=== PATIENT | female | born 1950 | race Caucasian/White ===

== ENCOUNTER 2019-08-19 18:58 | Inpatient (IN) | payer MEDICARE, MEDICAID, SELFPAY ==
[2019-08-19] VITALS (53 sets, daily range): BP systolic 120–185; BP diastolic 44–80; PULSE 65–114; RESP 8–24; TEMP 36.4–36.5; O2SAT 79–100; BMI 36.7
--- NOTE | 2019-08-19 19:00 | ED_ITS ---
Entered by Noelle Hogan, acting as scribe for HPI - Chest Pain General: Chief Complaint: Chest Pain Stated Complaint: CHEST PAIN Time Seen by Provider: 08/19/19 18:59 Source: patient and EMS Mode of arrival: EMS Limitations: no limitations History of Present Illness: HPI narrative: 68 yo Female presents to ED with complaint of chest pain. Per EMS, patient states that pushing on her chest and movement makes her pain worse. Pt states nothing makes it better. Per EMS, patient went to the salon to get her hair and nails done and was using a different walker than normal. Pt's normal walker has wheels and the one she used today didn't have wheels. Pt states that it hurts worse when her chest is pressed on. MD complaint: chest pain Onset (ago): hour(s) Timing of current episode: constant and still present Onset: during rest Pain location: left chest and right chest Pain radiation: none Severity: moderate Quality: aching Relieving factors: nothing Exacerbating factors: palpation and movement Associated symptoms: Reports nausea; Deny diaphoresis, dyspnea, fever(s), palpitations or syncope Treatment prior to arrival: oxygen Review of Systems General: Reports: other (negative unless marked) Const: Denies: fever, chills, body aches, fatigue, malaise or diaphoresis Eyes: Denies: change in vision or blurry vision ENMT: Denies: throat pain, painful swallowing, hoarseness, ear pain, ear discharge, Change in hearing or nasal discharge Card: Reports: chest pain; Denies: palpitations, irregular heart rhythm, syncope, pre-syncope, shortness of breath on exertion or shortness of breath when lying down Resp: Denies: shortness of breath, productive cough, non-productive cough, wheezing, coughing up blood or chest congestion GI: Reports: nausea : Denies: flank pain, painful urination, urinary frequency, urinary urgency, decreased urine ouput, urinary incontinence or blood in urine Musc: Reports: other (chest wall pain); Denies: neck pain, back pain, extremity pain, extremity swelling, joint pain, joint swelling, joint warmth or joint stiffness Skin/Breast: Denies: rash, skin tenderness or yellow skin Neuro: Denies: headache, numbness in extremities, weakness in extremities, changes in sensation, lack of coordination, difficulty walking, dizziness, vertigo or confusion Endo: Denies: excessive thirst, tired all the time, cold intolerance, excessive sweating, flushing or hot flashes Francois/Lymph: Denies: easy bruising, easy bleeding, petechiae or enlarged lymph nodes All/Imm: Denies: hives, throat swelling, tongue swelling, facial swelling or acute wheezing PFSH ED PFSH: Medical History (Updated 08/19/19 @ 22:04 by Ruchi Malloy MD) Adverse drug reaction Angina pectoris CAD (coronary artery disease) Cellulitis CHF (congestive heart failure) Dental caries Diabetes DJD (degenerative joint disease) Fibula fracture Gastroenteritis GERD (gastroesophageal reflux disease) HTN (hypertension) Hypercholesterolemia Hyperlipidemia Radius fracture Renal failure Rhabdomyolysis Tibia fracture UTI (urinary tract infection) Vertigo Surgical History (Updated 08/19/19 @ 19:44 by Noelle Hogan) History of cardiac catheterization History of hernia repair History of hip surgery History of hysterectomy History of knee surgery History of sinus surgery History of tonsillectomy History of umbilical hernia repair Family History (Updated 08/19/19 @ 21:21 by Ruchi Malloy MD) Other Diabetes Stroke Denies family history of CAD (coronary artery disease) Clotting disorder Dementia Chronic kidney disease (CKD) Social History (Updated 08/19/19 @ 21:22 by Ruchi Malloy MD) Smoking and tobacco status: never smoked Quit status (tobacco): has quit using tobacco Former quit date comment: Smoking in her 20s Alcohol intake: never Substance/Drug Use: never Caregiver/support person: Yes (Home health services Friday) Lives independently: Yes Housing: House Physical Exam Const: COMMON NORMALS: no apparent distress, oriented x3, no limitations, healthy appearing and well nourished EXAM LIMITATIONS: no altered mental status GENERAL APPEARANCE: cooperative, well kempt and well developed ORIENTATION/CONSCIOUSNESS: Yes awake HENMT: COMMON NORMALS: normocephalic, head/scalp atraumatic, hearing grossly normal bilaterally, external ears normal, EAC's normal, external nose normal and moist oral mucous membranes HEAD & SCALP: normal to inspection, normocephalic and atraumatic FACE & SINUS: normal facial exam and face symmetric NOSE: external nose normal and nares normal EXTERNAL EAR: Yes external ears normal EXTERNAL AUDITORY CANAL: EAC's normal MOUTH: oral and palatal mucosa normal and tongue normal Eye: COMMON NORMALS: PERRL, EOMs intact bilaterally, conjunctivae normal and no scleral icterus GENERAL EYE: normal appearance of both eyes and normal light reflex CONJUNCTIVA: Yes conjunctivae normal SCLERA: sclerae normal CORNEA: Yes corneas normal PUPIL: Yes PERRL DIRECT OPHTHALMOSCOPY: Yes normal light reflex Neck/C-Spine: COMMON NORMALS: full ROM, no lymphadenopathy, supple, no meningeal signs and no JVD GENERAL: Yes normal visual inspection and Yes trachea midline CERVICAL SPINE: Yes cervical ROM normal Chest: COMMONS NORMALS: inspection of chest normal and palpation of chest normal Resp: COMMON NORMALS: normal respiratory effort, no retractions, no use of accessory muscles and clear to auscultation bilaterally EFFORT & INSPECTION: Yes able to speak in complete sentences AUSCULTATION: clear to auscultation bilaterally Cardio: COMMON NORMALS: no JVD, regular rate, regular rhythm, S1 normal heart sound, S2 normal heart sound, no gallops, no clicks, no murmurs and no rub JUGULAR VENOUS DISTENTION: no JVD RATE: regular rate RHYTHM: regular rhythm HEART SOUNDS: S1 normal and S2 normal GI: COMMON NORMALS: soft to palpation, non-tender, no hepatosplenomegaly and no masses INSPECTION: Yes normal to inspection PALPATION: Yes soft and Yes no hepatosplenomegaly : COMMON NORMALS: Yes no CVA tenderness BLADDER/KIDNEY EXAM: Yes no CVA tenderness Back/Pelvis: COMMON NORMALS: no CVA tenderness, thoracic and lumbar spine normal to inspection, no thoracic nor lumbar tenderness and thoraco-lumbar ROM normal Extremity: COMMON NORMALS: normal to inspection, full ROM, normal capillary refill, no joint enlargement, no clubbing, cyanosis or edema and no calf tenderness Neuro: COMMON NORMALS: oriented x3, CN's II-XII intact bilaterally, moves all extremities, no focal motor deficits and no sensory deficits noted MENINGEAL SIGNS: Yes no meningeal signs Psych: COMMON NORMALS: mental status grossly normal, thought process normal, cooperative, affect normal, speech normal and activity/motor behavior normal APPEARANCE: Yes well kempt SPEECH: Yes normal speech THOUGHT PROCESS: normal thought process Skin: COMMON NORMALS: no rashes or lesions noted, skin turgor normal, no jaundice, no petechiae and no mottling GENERAL SKIN EXAM: no rashes or lesions noted and turgor normal Course Vital Signs: Vital signs: Vital Signs Temperature 97.6 F 08/19/19 19:19 Pulse Rate 72 08/19/19 22:11 Respiratory Rate 17 08/19/19 22:11 Blood Pressure 138/64 08/19/19 22:11 Pulse Oximetry 100 08/19/19 22:11 MDM - Chest Pain Lab Data: Attestation: I reviewed the patient's lab results. Labs: Lab Results 08/19/19 08/19/19 08/19/19 Range/Units 19:21 19:21 19:21 WBC 9.5 (4.0-10.0) 10^3/ uL RBC 3.42 L (4.1-5.3) 10^6/u L Hgb 10.1 L (11.5-15.3) g/dL Hct 31.8 L (37.0-47.0) % MCV 93.0 (81-99) fL MCH 29.5 (28.0-34.0) pg MCHC 31.8 (30.0-36.0) g/dL RDW 15.5 H (12.1-15.1) % Plt Count 210 (130-400) 10^3/c mm MPV 11.1 H (7.4-10.4) fL Neut % (Auto) 83.0 % Lymph % (Auto) 7.3 % Lincoln % (Auto) 7.5 % Eos % (Auto) 1.2 % Baso % (Auto) 0.5 % Neut # (Auto) 7.9 H (1.8-7.7) 10^3/u L Lymph # (Auto) 0.7 L (0.8-4.8) 10^3/u L Lincoln # (Auto) 0.7 (0.2-0.9) 10^3/u L Eos # (Auto) 0.1 (0.0-0.8) 10^3/u L Baso # (Auto) 0.1 (0.0-0.1) 10^3/u L Nucleated RBC % (a uto) 0 % Nucleated RBCs # 0.0 /100WBC Specimen Type Sample Site ABG pH (7.35-7.45) ABG pCO2 (35-45) mmHg ABG pO2 (80.0-100.0) mmH g ABG HCO3 (22-26) mmol/L ABG Base Excess (-2.0-2.0) mmol/ L [place] Test Hematocrit (37-47) % O2 Delivery Device FiO2 % Cyber Systems Operations Specialist ID Sodium 135 L (136-145) mmol/L Potassium 4.0 (3.5-5.1) mmol/L Chloride 95 L (98-107) mmol/L Carbon Dioxide 23 (22-29) mmol/L Anion Gap 21.0 H (5-19) BUN 51 H (8-23) mg/dL Creatinine 2.2 H (0.5-0.9) mg/dL GFR Calculation 22.1 L (90-130) mL/min Glucose 386 H (65-115) mg/dL Calcium 9.5 (8.5-10.5) mg/dL Magnesium 2.1 (1.7-2.3) mg/dL Total Bilirubin 0.7 (0.15-1.2) mg/dL AST 20 (0-32) U/L ALT 12 (0-33) U/L Alkaline Phosphata se 126 H (35-105) IU/L Troponin T Baselin e 47 H (0-10) ng/mL Total Protein 7.6 (6.6-8.7) g/dL Albumin 4.0 (3.5-5.2) g/dL Globulin 3.6 (1.3-4.6) g/dL Lipase 16 (13-60) U/L Urine Color (Yellow) Urine Appearance (CLEAR) Urine pH (5-7) Ur Specific Gravit y (1.005-1.030) Urine Protein (Negative) Urine Glucose (UA) (Normal) Urine Ketones (Negative) Urine Blood (Negative) Urine Nitrate (Negative) Urine Bilirubin (NEGATIVE) Urine Urobilinogen (Negative) mg/dL Ur Leukocyte Greer ase (Negative) Urine RBC (0-2) /hpf Urine WBC (0-5) /hpf Ur Squamous Epith Cells (0-5) Urine Bacteria (NONE) 08/19/19 08/19/19 Range/Units 20:13 21:08 WBC (4.0-10.0) 10^3/ uL RBC (4.1-5.3) 10^6/u L Hgb (11.5-15.3) g/dL Hct (37.0-47.0) % MCV (81-99) fL MCH (28.0-34.0) pg MCHC (30.0-36.0) g/dL RDW (12.1-15.1) % Plt Count (130-400) 10^3/c mm MPV (7.4-10.4) fL Neut % (Auto) % Lymph % (Auto) % Lincoln % (Auto) % Eos % (Auto) % Baso % (Auto) % Neut # (Auto) (1.8-7.7) 10^3/u L Lymph # (Auto) (0.8-4.8) 10^3/u L Lincoln # (Auto) (0.2-0.9) 10^3/u L Eos # (Auto) (0.0-0.8) 10^3/u L Baso # (Auto) (0.0-0.1) 10^3/u L Nucleated RBC % (a uto) % Nucleated RBCs # /100WBC Specimen Type Arterial Sample Site Radial, right ABG pH 7.38 (7.35-7.45) ABG pCO2 43.7 (35-45) mmHg ABG pO2 83.8 (80.0-100.0) mmH g ABG HCO3 25.9 (22-26) mmol/L ABG Base Excess 0.5 (-2.0-2.0) mmol/ L [place] Test N/a Hematocrit 34.1 L (37-47) % O2 Delivery Device Bipap FiO2 40.0 % Cyber Systems Operations Specialist ID [email or web address] Sodium (136-145) mmol/L Potassium (3.5-5.1) mmol/L Chloride (98-107) mmol/L Carbon Dioxide (22-29) mmol/L Anion Gap (5-19) BUN (8-23) mg/dL Creatinine (0.5-0.9) mg/dL GFR Calculation (90-130) mL/min Glucose (65-115) mg/dL Calcium (8.5-10.5) mg/dL Magnesium (1.7-2.3) mg/dL Total Bilirubin (0.15-1.2) mg/dL AST (0-32) U/L ALT (0-33) U/L Alkaline Phosphata se (35-105) IU/L Troponin T Baselin e (0-10) ng/mL Total Protein (6.6-8.7) g/dL Albumin (3.5-5.2) g/dL Globulin (1.3-4.6) g/dL Lipase (13-60) U/L Urine Color Straw (Yellow) Urine Appearance Hazy A (CLEAR) Urine pH 7 (5-7) Ur Specific Gravit y 1.005 (1.005-1.030) Urine Protein Neg (Negative) Urine Glucose (UA) 4+ H (Normal) Urine Ketones Negative (Negative) Urine Blood 2+ H (Negative) Urine Nitrate Negative (Negative) Urine Bilirubin Neg (NEGATIVE) Urine Urobilinogen Norm (Negative) mg/dL Ur Leukocyte Greer ase Negative (Negative) Urine RBC 5-10 H (0-2) /hpf Urine WBC 0-4 H (0-5) /hpf Ur Squamous Epith Cells 0-4 H (0-5) Urine Bacteria 2+ H (NONE) Imaging Data^: CXR: My impression: Cardiomegaly with moderate pulmonary vascular congestion. EKG Data^: EKG 1: Attestation: I personally reviewed and interpreted this EKG as follows: EKG interpretation date: 08/19/19 EKG interpretation time: 19:24 Interpretation: A flutter with a ventricular rate of 70 beats a minute, right bundle branch block. Nonspecific ST and T wave changes. EKG 2: Attestation: I personally reviewed and interpreted this EKG as follows: EKG interpretation date: 08/19/19 EKG interpretation time: 21:16 Interpretation: Atrial flutter with a ventricular rate of 73 beats a minute, right bundle branch block, nonspecific ST-T wave changes. EKG 3: Attestation: I personally reviewed and interpreted this EKG as follows: EKG interpretation date: 08/19/19 EKG interpretation time: 22:17 Interpretation: Atrial flutter with ventricular rate of 71 beats a minute, right bundle branch block, nonspecific ST and T wave changes. Confirm with Dr. Morelos. Discharge Plan Discharge Admit Provider: Ruchi Malloy Coding Level of Care Code ED Installer Apprentice for Chg Fwd Exam Comprehensive The documentation recorded by the Samira mcdermott Carmen, accurately reflects the service I personally performed and the decisions made by me, Adelita Javed Aug 19, 2019 18:58
--- NOTE | 2019-08-19 19:03 | XR_ITS ---
WS: [id number] XR chest 1V portable [id number] REASON FOR EXAM: cough FINDINGS: This study shows a reticular pattern throughout both lung rodrigez suggesting either inflamma tory or pulmonary edema these changes are accentuated since 04/16/2018. The heart is borderline enlarged. The hilum and apices normal. No osseous abnormalities. XR/XR chest 1V portable [id number] IMPRESSION: Increased markings suggesting inflammatory changes versus pulmonary edema.
--- NOTE | 2019-08-19 19:04 | ECG_ITS ---
Measurements Intervals [place] Rate: 70 P: MA: 0 QRS: 65 QRSD: 153 T: -22 QT: 430 QTc: 465 ATRIAL FLUTTER INTRAVENTRICULAR CONDUCTION DELAY [130+ ms QRS DURATION] Compared to ECG 06/22/2018 16:18:59 Intraventricular conduction delay now present Sinus rhythm no longer present Right bundle-branch block no longer present Electronically Signed On 08-21-2019 8:20:06 CARBON CUTTER by Patricia Morelos M.D. [id number] f
[2019-08-19] MEDS: ondansetron 2 mg/ML SDV 2 mL 4 MG IVP (19:28)
[2019-08-19] MEDS: aspirin 325 mg Tablet PO (19:28)
[2019-08-19] MEDS: morphine 4 mg/mL SDV 1 mL IVP (19:29)
[2019-08-19] MEDS: sodium chloride 0.9% 1,000 ML 100 ML IV (19:33)
--- NOTE | 2019-08-19 19:43 | PC.NURSE ---
Introduced self to patient and initiated vital signs. Patient presents A&O x 4. NAD, ABCs intact, MAEW and agreeable to treatment. Respirations are even and unlabored. Pt states that the chief complaint for the ER visit today is due to chest pain which starts in center and radiates around to back. Pt denies any vision disturbances or lightheadedness. Bed left in lowest position in semi-fowlers with side rails up. Reassured patient of needs and will continue to monitor.
[2019-08-19 19:44] LABS: Basophils # 0.1 10^3/uL (0.0-0.1); Basophils % 0.5 %; Eosinophils # 0.1 10^3/uL (0.0-0.8); Eosinophils % 1.2 %; Hematocrit 31.8 % (37.0-47.0); Hemoglobin 10.1 g/dL (11.5-15.3); Lymphocytes # 0.7 10^3/uL (0.8-4.8); Lymphocytes % 7.3 %; Mean Corpuscular HGB Conc 31.8 g/dL (30.0-36.0); Mean Corpuscular Hemoglobin 29.5 pg (28.0-34.0); Mean Platelet Volume 11.1 fL (7.4-10.4); Monocytes # 0.7 10^3/uL (0.2-0.9); Monocytes % 7.5 %; Neutrophils # 7.9 10^3/uL (1.8-7.7); Nucleated Red Blood Cells % 0 %; Platelet Count 210 10^3/cmm (130-400); Red Blood Count 3.42 10^6/uL (4.1-5.3); Red Cell Distribution Width 15.5 % (12.1-15.1); White Blood Count 9.5 10^3/uL (4.0-10.0)
[2019-08-19 19:51] LABS: Alanine Aminotransferase 12 U/L (0-33); Alkaline Phosphatase 126 IU/L (35-105); Blood Urea Nitrogen 51 mg/dL (8-23); Calcium 9.5 mg/dL (8.5-10.5); Carbon Dioxide 23 mmol/L (22-29); Chloride 95 mmol/L (98-107); Globulin 3.6 g/dL (1.3-4.6); Glomerular Filtration Rate 22.1 mL/min (90-130); Glucose 386 mg/dL (65-115); Lipase 16 U/L (13-60); Magnesium 2.1 mg/dL (1.7-2.3); Sodium 135 mmol/L (136-145); Total Bilirubin 0.7 mg/dL (0.15-1.2); Total Protein 7.6 g/dL (6.6-8.7)
[2019-08-19 19:57] LABS: Aspartate Amino Transferase 20 U/L (0-32)
[2019-08-19] MEDS: FUROsemide 10 mg/mL SDV 4mL 40 MG IVP (20:18)
[2019-08-19 20:22] LABS: Troponin(5th) Baseline 47 ng/mL (0-10)
[2019-08-19] MEDS: nitroglycerin 1 gm/inch oint Pkt 1 INCH TOPICAL (20:30)
--- NOTE | 2019-08-19 21:04 | ECG_ITS ---
Measurements Intervals [place] Rate: 73 P: 237 PA: 83 QRS: 55 QRSD: 89 T: -36 QT: 411 QTc: 454 Atrial flutter with variable conduction LOW QRS VOLTAGE IN PRECORDIAL LEADS INTRAVENTRICULAR CONDUCTION DELAY Compared to ECG 06/22/2018 16:18:59 Low QRS voltage now present Myocardial infarct finding now present ST (T wave) deviation now present Electronically Signed On 08-20-2019 16:52:06 LUMBER PRESS OPERATOR by Patricia Morelos M.D. [id number]
[2019-08-19 21:19] LABS: ABG PCO2 43.7 mmHg (35-45); ABG PH Result 7.38 (7.35-7.45); Arterial Blood Gas Hematocrit 34.1 % (37-47); Base Excess ABG 0.5 mmol/L (-2.0-2.0); Blood Gas Sample Site Radial, right; Blood Gas Sample Type Arterial; HCO3 ABG 25.9 mmol/L (22-26); Oxygen Device BIPAP; PO2 ABG 83.8 mmHg (80.0-100.0)
--- NOTE | 2019-08-19 21:20 | P.HP_ITS ---
Providers/Chief Complaint Primary Care Provider: Betsy Nuno DO Chief Complaint: CHEST PAIN History of Present Illness Fantasma Montalvo is a 68 year old female who carries diagnosis of diabetes, coronary artery disease, diastolic preserved left infection heart failure, chronic kidney disease came in with chief complaint of shortness of breath. She was recently discharged from the hospital after management of cellulitis. Patie nt is stating today she felt funny when woke up after few hours she started experiencing shortness of breath and substernal chest pain which was radiating towards her left side associated with shortness of breath without any nausea, vomiting, cold sweats but positive for palpitations. This chest pain was dull and lasted until EMS arrived and gave her 1 dose of sublingual nitroglycerin this would roughly be 15 to 20 minutes. She was hypertensive without tachycardia, pulse was irregular, diagnostics in ER revealed atrial flutter without RVR, after 1 inch of Nitropaste blood pressure came down to 148/56, pulse 75-80, patient is afebrile, she was given 40 mg of Lasix, for shortness of breath she was put on BiPAP, chest x-ray consistent with passive congestion. EMS gave her 1 L of normal saline. Family is at the bedside who is endorsing that she has home health services, Friday, she mostly takes her medication when home health nurse would give her a dose meds otherwise there is a chance she is not taking her medications properly. Patient herself is denying such attitude towards her medication intake, she lives alone, she is denying flulike symptoms, diarrhea, dysuria, traveling also [place], she has been experiencing orthopnea, PND, she is gaining weight, her legs are more swollen as compared to 1 month ago as per the brother. Review of Systems Const: Reports: fatigue; Denies: fever, chills or body aches Eyes: Denies: change in vision ENMT: Denies: throat pain or uvular edema Card: Reports: chest pain, palpitations, irregular heart rhythm, edema, swelling of feet/ankles, shortness of breath on exertion and shortness of breath when lying down; Denies: lightheadedness, syncope or pre-syncope Resp: Reports: shortness of breath; Denies: productive cough or non-productive cough GI: Denies: abdominal pain, nausea or vomiting : Denies: flank pain or difficulty urinating Musc: Denies: neck pain or back pain Skin/Breast: Denies: rash, itching or redness Neuro: Denies: headache Psych: Reports: anxiety; Denies: depression Endo: Reports: excessive urination and excessive thirst Francois/Lymph: Denies: easy bruising All/Imm: Denies: hives Medications/Allergies Home Medications Medication Instructions Recorded Confirmed Last Taken Type Unable to Assess 08/19/19 08/19/19 Unknown History Allergies Allergy/AdvReac Type Severity Reaction Status Date / Time prochlorperazine Allergy ALGY-Anaphy Verified 08/19/19 19:23 [From Compazine] laxis PFSH Acute PFSH: Medical History (Updated 08/19/19 @ 22:04 by Ruchi Malloy MD) Adverse drug reaction Angina pectoris CAD (coronary artery disease) Cellulitis CHF (congestive heart failure) Dental caries Diabetes DJD (degenerative joint disease) Fibula fracture Gastroenteritis GERD (gastroesophageal reflux disease) HTN (hypertension) Hypercholesterolemia Hyperlipidemia Radius fracture Renal failure Rhabdomyolysis Tibia fracture UTI (urinary tract infection) Vertigo Surgical History (Updated 08/19/19 @ 19:44 by Noelle Hogan) History of cardiac catheterization History of hernia repair History of hip surgery History of hysterectomy History of knee surgery History of sinus surgery History of tonsillectomy History of umbilical hernia repair Family History (Updated 08/19/19 @ 21:21 by Ruchi Malloy MD) Other Diabetes Stroke Denies family history of CAD (coronary artery disease) Clotting disorder Dementia Chronic kidney disease (CKD) Social History (Updated 08/19/19 @ 21:22 by Ruchi Malloy MD) Smoking and tobacco status: never smoked Quit status (tobacco): has quit using tobacco Former quit date comment: Smoking in her 20s Alcohol intake: never Substance/Drug Use: never Caregiver/support person: Yes (Home health services Friday) Lives independently: Yes Housing: House Vitals/I&O/Wt Last Vital Signs Temp 97.6 F 08/19/19 19:19 Pulse 75 08/19/19 20:15 Resp 16 08/19/19 19:41 BP 126/49 08/19/19 21:05 Pulse Ox 98 08/19/19 20:15 Weight last 48 hrs Weight 82.554 kg Physical Exam Narrative: EXAM NARRATIVE: Obese female currently using BiPAP saturating well on 40% 16 BiPAP settings No active respiratory distress Able to give me all the details about her symptoms Family at the bedside Very pleasant to communicate Variable S1-S2, positive JVD, lower extremity 2+ pitting edema Abdomen soft nontender bloated, bowel sound present Neurologically nonfocal exam Skin does not show any sign ischemia getting ulcer, no signs of cellulitis of lower extremity Appropriate mood and affect EKG showing atrial flutter/fibrillation without RVR Current blood pressure 140mmhg systolic Data : 08/19/19 19:21 08/19/19 19:21 A&P Assessment and plan (1) Atrial flutter: Status: Acute Code(s): I48.92 - Unspecified atrial flutter (2) Grade II diastolic dysfunction: Status: Acute Code(s): I51.9 - Heart disease, unspecified (3) Heart failure with preserved ejection fraction: Status: Acute Code(s): I50.30 - Unspecified diastolic (congestive) heart failure (4) Acute kidney injury superimposed on chronic kidney disease: Status: Acute Code(s): N17.9 - Acute kidney failure, unspecified; N18.9 - Chronic kidney disease, unspecified Additional A&P Information Symptomatic new onset atrial flutter less than 48 hours Without RVR We will check magnesium and TSH level Start low-dose Eliquis, chads vas 5, HASBLED 3 Unstable angina Substernal chest pain, lasted more than 20 minutes, relieved with nitro Considering her risk factors for coronary disease I would go ahead and do a Lexiscan stress test Hold beta-gato for now atrial flutter is without RVR Patient is not showing any signs of ischemia Troponin baseline 47, 120 minutes 82, starting Eliquis, closely monitor for recurrence of chest pain, her troponin could be secondary to CKD Acute on chronic congestive heart failure preserved ejection fraction due to noncompliance Her use of Bumex is questionable I would not increase the dose and will keep her on 2 mg of Bumex at the moment, monitor output Acute on chronic kidney disease secondary to cardiorenal Anticipating improvement with diuresis Monitor with BMP No acute indication for dialysis Patient is able to void urine, not complaining of any CVA tenderness, less likely to be any urine retention scenario Hypothyroidism: Considering questionable compliance with medication I will check her TSH Current dose of levothyroxine 50 mcg DVT prophylaxis: Currently on Eliquis Cardiac diet, Patient wants a trial of CPR and intubation Attestations Medical Necessity Statement*: Anticipating stay less than 48 hours, needs cardiac stress test and management of atrial flutter Time Spent in Patient Care: 45 Coding Level of Care Code Acute Automation Technician for Kendall Mckeon Diagnoses Atrial flutter I48.92 Grade II diastolic dysfunction I51.9 Heart failure with preserved ejection fraction I50.30 Acute kidney injury superimposed on chronic kidney disease N17.9; N18.9
[2019-08-19 21:43] LABS: Bilirubin Urine Neg (NEGATIVE); Glucose Urine UA 4+ (Normal); Ketones Urine Negative (Negative); Leukocyte Esterase Urine Negative (Negative); Nitrate Urine Negative (Negative); Protein Urine Neg (Negative); Specific Gravity, Urine 1.005 (1.005-1.030); Urine Appearance Hazy (CLEAR); Urine Color Straw (Yellow); Urobilinogen Urine Norm (Negative); pH Urine 7 (5-7)
[2019-08-19 21:44] LABS: Add Urine Culture? Yes; Bacteria Urine 2+; Blood Urine 2+ (Negative); Squamous Epithelial Cell Urine 0-4 (0-5); WBC Urine 0-4 /hpf (0-5)
[2019-08-19] MEDS: apixaban 5 mg Tablet 2.5 MG PO (21:46)
[2019-08-19 21:56] LABS: Troponin 5 2HR 82.89 ng/mL (0-10)
[2019-08-19 22:01] LABS: Troponin 5 2HR Delta 35.89 ABS# (0-10)
--- NOTE | 2019-08-19 22:01 | PC.NURSE ---
crtical 2 hour trop delta 35.89 reported by Lena in lab at this time.
[2019-08-19 22:04] LABS: Thyroid Stimulating Hormone 1.06 uIU/mL (0.27-4.20)
--- NOTE | 2019-08-19 22:04 | ECG_ITS ---
Measurements Intervals [place] Rate: 71 P: [place]: 0 QRS: 42 QRSD: 93 T: 0 QT: 204 QTc: 221 ATRIAL FLUTTER RIGHT BUNDLE BRANCH BLOCK LOW QRS VOLTAGE IN PRECORDIAL LEADS Compared to ECG 06/22/2018 16:18:59 Low QRS voltage now present ST (T wave) deviation now present Sinus rhythm no longer present Electronically Signed On 08-21-2019 8:18:50 SOFT SUGAR SUPERVISOR by Patricia Morelos M.D. [id number]
[2019-08-20] VITALS (78 sets, daily range): BP systolic 103–155; BP diastolic 47–94; PULSE 55–83; RESP 0–36; TEMP 36.8–37.7; O2SAT 91–100
[2019-08-20 00:01] LABS: NT Pro B Type Natriuretic Pept 1842 pg/mL (0-125)
[2019-08-20] MEDS: morphine 4 mg/mL SDV 1 mL IVP (00:55)
--- NOTE | 2019-08-20 01:04 | ECG_ITS ---
Measurements Intervals [place] Rate: 69 P: MA: 0 QRS: 32 QRSD: 137 T: -35 QT: 406 QTc: 437 ATRIAL FLUTTER INTRAVENTRICULAR CONDUCTION DELAY [130+ ms QRS DURATION] Compared to ECG 06/22/2018 16:18:59 Intraventricular conduction delay now present Sinus rhythm no longer present Right bundle-branch block no longer present Electronically Signed On 08-20-2019 16:50:45 FUR GLOSSER by Patricia Morelos M.D. [id number]
[2019-08-20 01:41] LABS: Anion Gap 17.9 (5-19); Blood Urea Nitrogen 47 mg/dL (8-23); Calcium 8.8 mg/dL (8.5-10.5); Carbon Dioxide 25 mmol/L (22-29); Chloride 97 mmol/L (98-107); Glomerular Filtration Rate 22.1 mL/min (90-130); Glucose 445 mg/dL (65-115); Osmolality Calculated 299 mOsm/kg (285-295); Potassium 3.9 mmol/L (3.5-5.1); Sodium 136 mmol/L (136-145)
[2019-08-20 01:56] LABS: Troponin 5 6HR 169.9 ng/mL (0-10); Troponin 5 6HR Delta 122.9 ng/L (0-12)
[2019-08-20 02:02] LABS: Basophils % 0.3 %; Eosinophils # 0.1 10^3/uL (0.0-0.8); Eosinophils % 0.8 %; Hemoglobin 9.3 g/dL (11.5-15.3); Lymphocytes # 0.8 10^3/uL (0.8-4.8); Lymphocytes % 10.7 %; Mean Corpuscular HGB Conc 32.1 g/dL (30.0-36.0); Mean Corpuscular Volume 93.5 fL (81-99); Mean Platelet Volume 11.4 fL (7.4-10.4); Monocytes # 0.7 10^3/uL (0.2-0.9); Neutrophils # 5.9 10^3/uL (1.8-7.7); Neutrophils % 78.8 %; Nucleated Red Blood Cells % 0 %; Platelet Count 180 10^3/cmm (130-400); Red Cell Distribution Width 15.7 % (12.1-15.1); White Blood Count 7.5 10^3/uL (4.0-10.0)
--- NOTE | 2019-08-20 02:09 | PC.NURSE ---
Critical lab result called on patient 6 hour trop. result of 169.9 delta of 122.9. patient scheduled for stress test in the morning. called with results and no orders at this time. patient stable.
[2019-08-20 05:58] LABS: Glucose Point of Care 283 mg/dL (70-110)
--- NOTE | 2019-08-20 06:00 | ECG_ITS ---
NAME OF STUDY: LEXISCAN SESTAMIBI STRESS TEST INDICATION: UNSTABLE ANGINA, NOTE: Please note that this is the electrocardiogram portion of the Lexiscan/Sestamibi stress test. The perfusion scan will be documented separately. DATA: Baseline heart rate was 60 beats per minute. Baseline blood pressure was 141/63 millimeters of mercury. Target heart rate was 151. Maximum heart rate achieved was 92. which was 80 % of the predicted target heart rate. Maximum blood pressure was 154/87 millimeters of mercury. The reason for ending the test was completion of the protocol. The patient did not experience any symptoms. ELECTROCARDIOGRAM: BASELINE: Atrial flutter. Normal axis. Right bundle branch block, Otherwise, no ST-T changes suggestive of ischemia noted. No arrhythmia noted. EXERCISE: After Lexiscan injection, no ST-T changes suggestive of ischemic noted. No arrhythmia noted. CONCLUSION: Please note due to baseline abnormality of the EKG specificity and sensitivity of the EKG portion of LexiScan MIBI stress test will be low 1. EKG not suggestive of ischemia 2. Lexiscan injection unremarkable. 3. Perfusion scan will be documented separately. Electronically Signed On 08-21-2019 18:54:16 TECHNICAL EXPERT by Ruchi Estrada M.D. [email or web address]
--- NOTE | 2019-08-20 06:10 | PC.NURSE ---
STRESS TEST NOTE THIS NURSE SPOKE TO PROSPER SUMMERS, IN THE ICU. MELINA STATED THAT THE PATIENT'S LAST CAFFEINE INTAKE WAS 2200 LAST PM. WE WILL CONTINUE WITH THE STRESS TEST ORDERED BUT, WE CANNOT STRESS THE PATIENT UNTIL 1000 OR AFTER. THIS WILL MEET THE NO CAFFEINE FOR 12 HOURS PRIOR REQUIREMENT FOR A CHEMICAL STRESS TEST. MELINA AND ANUP, OPERATIONS OFFICER AFLOAT, WERE NOTIFIED.
--- NOTE | 2019-08-20 07:00 | NMCV_ITS ---
NM luis alfredo perf SPECT r/s* [id number] Fantasma Montalvo Age: 68 Gender: F : 1950 Exam Date: 08/20/2019 09:53 Ordering Phys: Ruchi Malloy MD Technologist: JEY Byrne Exam Location: [facility] Indications: CHEST PAIN STRESS TEST [facility] IMAGE PROTOCOL Rest/Stress 1 Lexiscan Day Radiopharmaceutical Dose (mCi) Administration Site Administered by Rest: Tc-99m 11.0 IV JEY Byrne Sestamibi Stress:Tc-99m 32.4 IV JEY Coates Sestamibi Rest: 20-Aug-2019 60 Discovery 630 Stress: 20-Aug-2019 30 Discovery 630 0.4mg Lexiscan. Supine position only as patient was unable to lay prone. SPECT RESULTS Technical Quality: Good Raw Data Analysis: Breast attenuation Image Corrections: No attenuation or motion correction applied Summed Stress Score: 21 Summed Rest Score: 16 Summed Difference Score: 5 PERFUSION FINDINGS Large size perfusion abnormality of moderate to severe severity of entire inferior, mid to apical inferolateral, apical lateral and apical watters on rest images with some reversibility in mid inferior, mid to apical inferolateral watters. FUNCTIONAL RESULTS (calculated via Gated SPECT) Stress Image LV EF (%): 70 Stress EDV (mL):100 TID: 1.1 Stress ESV (mL):30 FUNCTIONAL FINDINGS: The left ventricle is normal in size. Transient Ischemia Dilatation of 1.1. There is normal left ventricular systolic function. The left ventricular ejection fraction is normal with a value of 70%. There is possible mild hypokinesis of inferior wall. End-diastolic volume of 100 mL and end-systolic volume of 30 mL. IMPRESSIONS 1. Large size perfusion abnormality of moderate to severe severity of entire inferior, mid to apical inferolateral, apical lateral and apical watters with some reversibility in mid inferior, mid to apical inferolateral watters. 2. This may represent old myocardial infarction in right coronary artery/circumflex artery territory with small sathya-infarct ischemia. However, in absence of prone imaging attenuation artifact cannot be completely ruled out. 3. The left ventricular ejection fraction is normal with a value of 70%. 4. There is possible mild hypokinesis of inferior wall. 5. No prior similar studies to compare. Patricia Morelos MD (Electronically Signed) Final Date: 20 August 2019 14:16 S
[2019-08-20 07:42] LABS: Glucose Point of Care 212 mg/dL (70-110)
--- NOTE | 2019-08-20 09:57 | US_ITS ---
WS: [id number] ABDOMINAL ULTRASOUND LIMITED REASON FOR VISIT: Abdominal distention, LE edema, check for ascites or organom TECHNIQUE: Grayscale and Doppler ultrasound examination of the abdomen. FINDINGS: Pancreas: Not evaluated. Abdominal aorta and IVC: Evaluated. Not done. Liver: Liver measures 16.7 cm in length. Fatty infiltration. Gallbladder: Gallbladder wall thickness measures . Multiple gallstones stones are seen with shadowing . . Spleen measured 3.98 cm x 9.43 cm per There was no evidence of ascites. US/US abdomen limited [id number] IMPRESSION: Fatty infiltration of the liver Multiple cholelithiasis No evidence of ascites.
--- NOTE | 2019-08-20 09:59 | USCV_ITS ---
Fantasma Montalvo Age: 68 Gender: F : 1950 Exam Date: 08/20/2019 13:28 Ordering Phys: Tino Mcintyre MD Technologist: Casandra Wallace Exam Location: [facility] [place] Indication: NEW A FLUTTER BP: 150 / 58 HR: 73 Rhythm: Sinus Technical Quality: Adequate MEASUREMENTS (Male / Female) Normal Values 2D ECHO LV Diastolic Diameter PLAX 4.1 cm 4.2 - 5.9 / 3.9 - 5.3 cm LV Systolic Diameter PLAX 2.7 cm LV Chamber Size 3.0 cm IVS Diastolic Thickness 1.1 cm 0.6 - 1.0 / 0.6 - 0.9 cm IVS Systolic Thickness 1.6 cm LVPW Diastolic Thickness 1.2 cm 0.6 - 1.0 / 0.6 - 0.9 cm LVPW Systolic Thickness 1.5 cm RV Chamber Size 2.3 cm LVOT Diameter 2.0 cm LV Ejection Fraction 2D Teich 65.7 % LV Ejection Fraction MOD 2C 48.9 % LV Ejection Fraction 2C AL 52.4 % LA Diameter 4.9 cm LA Width 3.1 cm LA Height 4.6 cm RA Width 3.5 cm RA Height 4.9 cm Aorta at Sinotubular Diameter 2.6 cm M-MODE LV Diastolic Diameter MM 4.7 cm 4.2 - 5.9 / 3.9 - 5.3 cm LV Systolic Diameter MM 3.3 cm LV Ejection Fraction MM Teich 55.5 % IVS Diastolic Thickness MM 1.1 cm 0.6 - 1.0 / 0.6 - 0.9 cm IVS Systolic Thickness MM 1.2 cm LVPW Diastolic Thickness MM 1.1 cm 0.6 - 1.0 / 0.6 - 0.9 cm LVPW Systolic Thickness MM 1.1 cm RV Diastolic Diameter MM 1.3 cm Aortic Annulus Diameter 2.6 cm LA Ao Ratio MM 1.9 MV E Point Septal Separation 0.5 cm DOPPLER AV Peak Velocity 197.0 cm/s LVOT Peak Velocity 96.0 cm/s AV Area Cont Eq vti 1.7 cm squared AV Area Cont Eq pk 1.5 cm squared MV Area PHT 5.6 cm squared Mitral E to A Ratio 1.6 MV E' Velocity 13.0 cm/s Mitral E to MV E' Ratio 12.8 Mitral E to LV E' Lateral Ratio 11.6 Mitral E to LV E' Septal Ratio 14.3 TR Peak Velocity 277.1 cm/s TR Peak Gradient 30.7 mmHg TR Mean Velocity 160.9 cm/s TR Mean Gradient 12.6 mmHg TR Velocity Time Integral 52.9 cm TV Peak E Velocity 69.0 cm/s Right Atrial Pressure 8.0 mmHg Pulmonary Artery Systolic Pressu 38.7 mmHg PV Peak Velocity 114.0 cm/s RV Acceleration Time 0.1 s RV Ejection Time 0.3 s RV AcT/ET 0.3 FINDINGS Left Ventricle Normal left ventricular cavity size. Normal left ventricular systolic function. No regional wall motion abnormalities. Left ventricular ejection fraction is estimated at 55 %. Grade II/IV diastolic dysfunction, moderately elevated filling pressures. Right Ventricle The right ventricle is normal in size and function. Mild pulmonary hypertension, RVSP 38.7 mmHg. Right Atrium The right atrium is normal in size. Left Atrium Moderately increased left atrial size. Mitral Valve Severely thickened mitral valve. Moderate mitral annular calcification. No mitral valve stenosis. Mild-moderate mitral valve regurgitation. Aortic Valve Severe aortic valve calcification. Mild aortic valve stenosis, mean gradient 6.7 mmHg, HERNANDEZ 1.7 cm squared. Trace to mild aortic valve regurgitation. Tricuspid Valve Structurally normal tricuspid valve without significant stenosis or regurgitation. Pulmonary artery systolic pressure is normal. Pulmonic Valve Structurally normal pulmonic valve without significant stenosis. There is no pulmonic regurgitation. Pericardium Normal pericardium without effusion. Aorta Normal ascending aorta dimension. CONCLUSIONS 1-Normal left ventricular cavity size. Normal left ventricular systolic function. No regional wall motion abnormalities. Left ventricular ejection fraction is estimated at 55 %. Grade II/IV diastolic dysfunction, moderately elevated filling pressures. 2-The right ventricle is normal in size and function. Mild pulmonary hypertension, RVSP 38.7 mmHg. 3-Severely thickened mitral valve. Moderate mitral annular calcification. No mitral valve stenosis. Mild-moderate mitral valve regurgitation. 4-Severe aortic valve calcification. Mild aortic valve stenosis, mean gradient 6.7 mmHg, HERNANDEZ 1.7 cm squared. Trace to mild aortic valve regurgitation. 5-Moderately increased left atrial size. 6-When compared to the prior echocardiogram dated 06/22/2018 there is mild aortic stenosis now. Ruchi Estrada MD (Electronically Signed) Final Date: 20 August 2019 17:06 S
--- NOTE | 2019-08-20 09:59 | PM.PN ---
Subjective Subjective: Interval history: Today she is feeling somewhat better. No chest discomfort. No trouble breathing. Has noticed abdominal distention since yesterday. No pain. Has been having lower extremity edema for some time. Vitals/I&O/Wt Last Vital Signs Temp 97.7 F 08/19/19 23:10 Pulse 58 L 08/20/19 09:00 Resp 12 08/20/19 09:00 BP 113/51 08/20/19 09:00 Pulse Ox 96 08/20/19 09:00 08/19/19 08/20/19 08/20/19 22:59 06:59 14:59 Output Total 800 / 800 1650 / 2450 Balance -800 / -800 -1650 / -2450 Weight last 48 hrs Weight 82.554 kg Physical Exam Const: COMMON NORMALS: no apparent distress and oriented x3 NUTRITIONAL APPEARANCE: obese HENMT: COMMON NORMALS: oropharynx normal Neck/C-Spine: COMMON NORMALS: no JVD Resp: COMMON NORMALS: normal respiratory effort and clear to auscultation bilaterally AUSCULTATION: clear to auscultation bilaterally Cardio: COMMON NORMALS: no JVD, regular rhythm, S1 normal heart sound, S2 normal heart sound and no murmurs RHYTHM: regular rhythm HEART SOUNDS: S1 normal and S2 normal GI: COMMON NORMALS: normal to inspection, nondistended, normoactive bowel sounds, soft to palpation and non-tender PALPATION: Yes soft Extremity: COMMON NORMALS: no joint enlargement NARRATIVE EXTREMITY EXAM: 2+ LE edema Neuro: COMMON NORMALS: oriented x3 and moves all extremities Skin: COMMON NORMALS: no rashes or lesions noted GENERAL SKIN EXAM: no rashes or lesions noted Data : 08/20/19 01:10 08/20/19 01:10 A&P Assessment and plan (1) Atrial flutter: Heart rates in the 50s. Denies chest pain currently. Denies known past cardiac disease. Slow ventricular response. At this time although digna blockers. Monitor rates. Assess for coronary disease contributing. Continue Eliquis. Assess Echocardiogram. Status: Acute Code(s): I48.92 - Unspecified atrial flutter (2) Grade II diastolic dysfunction: Status: Acute Code(s): I51.9 - Heart disease, unspecified (3) Heart failure with preserved ejection fraction: Acute on chronic CHF. TTE as above. Reports abdominal distention within the last day or so. Painless. Will assess limited ultrasound for ascites. Continue Bumex. Monitor I&O. Status: Acute Code(s): I50.30 - Unspecified diastolic (congestive) heart failure (4) Acute kidney injury superimposed on chronic kidney disease: Discussed with her creatinine elevation. She is says that she avoids NSAIDs. Has taken some aspirin. He is aware of chronic kidney disease. Monitor renal function with diuresis. Concern for cardiorenal syndrome. Assess TTE. Status: Acute Code(s): N17.9 - Acute kidney failure, unspecified; N18.9 - Chronic kidney disease, unspecified Additional A&P Information Hypothyroidism: TSH is normal. Continue levothyroxine 50 mcg Attestations Medical Necessity Statement*: Requires admission of over 2 midnights for assessment management of new onset atrial flutter with slow ventricular response, troponin elevation. Coding Level of Care Code Acute Hardening Machine Operator Helper for Kendall Mckeon Diagnoses Atrial flutter I48.92 Grade II diastolic dysfunction I51.9 Heart failure with preserved ejection fraction I50.30 Acute kidney injury superimposed on chronic kidney disease N17.9; N18.9
[2019-08-20] MEDS: regadenoson 0.4 Mg/5 ml Syringe IVP (10:34)
[2019-08-20 12:14] LABS: Glucose Point of Care 146 mg/dL (70-110)
[2019-08-20] MEDS: isosorbide mononitrate ER 30 mg Tablet PO (12:19)
[2019-08-20] MEDS: apixaban 5 mg Tablet 2.5 MG PO (12:19)
[2019-08-20] MEDS: pantoprazole DR 40 mg Tablet 20 MG PO (12:20)
[2019-08-20] MEDS: levothyroxine 50 mcg Tablet PO (12:20)
[2019-08-20] MEDS: sennosides-docusate Tablet 1 TAB PO (12:20)
[2019-08-20] MEDS: bumetanide 1 mg Tablet 2 MG PO (12:21)
[2019-08-20 17:12] LABS: Glucose Point of Care 216 mg/dL (70-110)
[2019-08-20] MEDS: ondansetron 2 mg/ML SDV 2 mL 4 MG IVP ×2 (17:29→23:31)
--- NOTE | 2019-08-20 17:54 | PM.CONSULT ---
Providers/Reason For Consult Consulting Physican/Specialty*: Cardiology Reason for Consult*: Chest pain Abnormal stress test Atrial flutter Worsening of heart failure Attending Physician: Tino Mcintyre Primary Care Provider: Betsy Nuno DO History of Present Illness History of Present Illness Fantasma Montalvo is a 68 year old female Past medical history significant for coronary artery disease, hypertension hyperlipidemia Chronic kidney disease, diastolic heart failure with preserved Systolic function she was admitted worsening of shortness of breath orthopnea atrial flutter with rapid ventricular response and chest pain radiating to left arm.She was diuresed and ttreated with optimization of medicine. In the last 24 hours she is feeling much better however she still feels chest pain off-and-on basis which is usually short-lived. She is adequately rate controlled now. Echocardiogram during this admission consistent with mild aortic stenosis. She underwent nuclear stress test to rule out for ischemia which showed old myocardia infarction in the inferior and inferolateral wall with mild sathya-infarct ischemia. Patient was not able to perform the prone images therefore cannot rule out artifact. We have been asked to assist in her care. Fantasma is my patient from clinic whom I take care for on regular basis. For the past few weeks she was Struggling from water retention for which she was started on diuretics according to her it was given her back pain therefore she discontinued it. She also see Dr. Royal for ending the problem. Her creatinine is 2.2 which has improved from 2.6. On physical examination she still has baseline iinspiratory crackles. Review of Systems General: Reports: other (negative unless marked) Const: Reports: fatigue; Denies: fever, chills, body aches, malaise or diaphoresis Eyes: Denies: change in vision or blurry vision ENMT: Denies: throat pain, uvular edema, painful swallowing, hoarseness, ear pain, ear discharge, change in hearing or nasal discharge Card: Reports: chest pain, palpitations, irregular heart rhythm, edema, swelling of feet/ankles, shortness of breath on exertion and shortness of breath when lying down; Denies: lightheadedness, syncope or pre-syncope Resp: Reports: shortness of breath; Denies: productive cough, non-productive cough, wheezing, coughing up blood or chest congestion GI: Denies: abdominal pain, nausea or vomiting : Denies: flank pain, difficulty urinating, painful urination, urinary frequency, urinary urgency, decreased urine ouput, urinary incontinence or blood in urine Musc: Reports: other (chest wall pain); Denies: neck pain, back pain, extremity pain, extremity swelling, joint pain, joint swelling, joint warmth or joint stiffness Skin/Breast: Denies: rash, itching, redness, skin tenderness or yellow skin Neuro: Denies: headache, numbness in extremities, weakness in extremities, changes in sensation, lack of coordination, difficulty walking, dizziness, vertigo or confusion Psych: Reports: anxiety; Denies: depression Endo: Reports: excessive urination and excessive thirst; Denies: tired all the time, cold intolerance, excessive sweating, flushing or hot flashes Francois/Lymph: Denies: easy bruising, easy bleeding, petechiae or enlarged lymph nodes All/Imm: Denies: hives, throat swelling, tongue swelling, facial swelling or acute wheezing Meds/Allergies Home Medications and Allergies Home Medications Medication Instructions Recorded Confirmed Type bumetanide 2 mg PO DAILY 08/20/19 08/20/19 History fentanyl 50 mcg TOPICAL Q72H 08/20/19 08/20/19 History gabapentin 100 mg PO BEDTIME 08/20/19 08/20/19 History glipizide 10 mg PO DAILY 08/20/19 08/20/19 History insulin aspart U-100 [Novolog See Protocol SUBCUT AC 08/20/19 08/20/19 History Flexpen U-100 Insulin] isosorbide mononitrate 30 mg PO DAILY 08/20/19 08/20/19 History levothyroxine 50 mcg PO DAILY 08/20/19 08/20/19 History metoprolol tartrate 50 mg PO BID 08/20/19 08/20/19 History nifedipine 30 mg PO DAILY 08/20/19 08/20/19 History potassium chloride 10 meq PO DAILY 08/20/19 08/20/19 History prednisone 10 mg PO DAILY 08/20/19 08/20/19 History rosuvastatin 20 mg PO BEDTIME 08/20/19 08/20/19 History sertraline 25 mg PO DAILY 08/20/19 08/20/19 History Allergies Allergy/AdvReac Type Severity Reaction Status Date / Time prochlorperazine Allergy ALGY-Anaphy Verified 08/19/19 19:23 [From Compazine] laxis Current Medications Current Medications Generic Name Dose Route Start Last Admin Trade Name Freq PRN Reason Stop Dose Admin Apixaban 2.5 mg 08/20/19 09:00 08/20/19 17:44 Eliquis PO Not Given BID PINA Bumetanide 2 mg 08/20/19 09:00 08/20/19 12:21 Bumex PO 2 mg DAILY PINA Administration Insulin Aspart 0 unit 08/20/19 08:00 08/20/19 17:28 Novolog SUBCUT 6 unit TIDWM PINA Administration Protocol Isosorbide Mononitrate 30 mg 08/20/19 09:00 08/20/19 12:19 Imdur PO 30 mg DAILY PINA Administration Levothyroxine Sodium 50 mcg 08/20/19 09:00 08/20/19 12:20 Synthroid PO 50 mcg DAILY PINA Administration Morphine Sulfate 4 mg 08/19/19 22:49 08/20/19 00:55 Morphine IVP 4 mg Q4H PRN Administration SEVERE PAIN Ondansetron HCl 4 mg 08/19/19 22:49 08/20/19 17:29 Zofran IVP 4 mg Q6H PRN Administration NAUSEA AND VOMITING Pantoprazole Sodium 20 mg 08/20/19 09:00 08/20/19 12:20 Protonix PO 20 mg DAILY PINA Administration Potassium Chloride 20 meq 08/20/19 09:00 08/20/19 12:19 Klor-Con 10 PO 20 meq DAILY PINA Administration Senna/Docusate Sodium 1 tab 08/20/19 09:00 08/20/19 17:44 Senna-S PO Not Given BID PINA PFSH Acute PFSH: Medical History (Updated 08/20/19 @ 18:04 by Ruchi Estrada MD) Adverse drug reaction Angina pectoris CAD (coronary artery disease) Cellulitis CHF (congestive heart failure) Dental caries Diabetes DJD (degenerative joint disease) Fibula fracture Gastroenteritis GERD (gastroesophageal reflux disease) HTN (hypertension) Hypercholesterolemia Hyperlipidemia Radius fracture Renal failure Rhabdomyolysis Tibia fracture UTI (urinary tract infection) Vertigo Surgical History History of cardiac catheterization History of hernia repair History of hip surgery History of hysterectomy History of knee surgery History of sinus surgery History of tonsillectomy History of umbilical hernia repair Family History Other Diabetes Stroke Denies family history of CAD (coronary artery disease) Clotting disorder Dementia Chronic kidney disease (CKD) Social History Smoking and tobacco status: never smoked Quit status (tobacco): has quit using tobacco Former quit date comment: Smoking in her 20s Alcohol intake: never Substance/Drug Use: never Caregiver/support person: Yes (Home health services Friday) Lives independently: Yes Housing: House Vitals/I&O/Wt Last Vital Signs Temp 97.7 F 08/19/19 23:10 Pulse 79 08/20/19 16:00 Resp 13 08/20/19 16:00 BP 150/58 08/20/19 13:30 Pulse Ox 95 08/20/19 09:30 08/20/19 08/20/19 08/20/19 06:59 14:59 22:59 Intake Total 350 / 350 Output Total 1650 / 2450 Balance -1650 / -2450 350 / 350 Weight last 48 hrs Weight 182 lb Physical Exam Narrative: EXAM NARRATIVE: GENERAL: Patient is awake oriented but lethargic NECK: No jugular vein distension. HEENT: No cyanosis. No icterus. No pallor. HEART: Regularly irregular S1 and S2. No murmur, rub or gallop. LUNGS: Left lower lobe inspiratory crepitation. ABDOMEN: Soft, nontender and nondistended. Positive bowel sounds. No guarding, rebound or tenderness. CENTRAL NERVOUS SYSTEM: Grossly nonfocal. EXTREMITIES: Lower extremities without edema bilaterally. HENMT: THROAT: no uvular edema A&P Assessment and plan (1) Atrial flutter: We will continueCurrent medicine metoprolol.For Anticoagulation continue adjusted dose Apixaban Status: Acute Code(s): I48.92 - Unspecified atrial flutter (2) Acute kidney injury superimposed on chronic kidney disease: Patient has baseline chronic kidney disease with most her time creatinine around 2.0. For now we will continue to diurese for at least one more dose with IV Lasix since she still appeared to be volume was noted hopefully it will improve otherwise we will back off from tomorrow. Status: Acute Code(s): N17.9 - Acute kidney failure, unspecified; N18.9 - Chronic kidney disease, unspecified (3) Heart failure with preserved ejection fraction: Appeared to be in decompensated heart failure. Continue IV diuresis Status: Acute Code(s): I50.30 - Unspecified diastolic (congestive) heart failure (4) Chest pain: Patient chest pain most likely is cardiac. Worsening of creatinine is high risk for complications such as contrast induced nephropathy leading to temporary or permanent dialysis at this point now. For now we will try to treat Medically if her creatinine improve to her baseline we may will opt for angiogram or if there is worsening and deterioration of cardiac function which overweighs the risk for nephropathy Status: Acute Code(s): R07.9 - Chest pain, unspecified Coding Level of Care Code New Pt Acute Director Of Therapy Services for g Fwd Patient Type New History Expanded Problem Focused Exam Expanded Problem Focused Medical Decision Making Moderate Complexity Diagnoses Atrial flutter I48.92 Acute kidney injury superimposed on chronic kidney disease N17.9; N18.9 Heart failure with preserved ejection fraction I50.30 Chest pain R07.9
--- NOTE | 2019-08-20 18:05 | PC.NURSE ---
up on bedside luis had several loose bms and had projectile vomiting and chills specimens to lab
[2019-08-20 18:48] LABS: Influenza A by IFA Negative (Negative); Influenza B by IFA Negative (Negative)
[2019-08-20] MEDS: metoclopramide 5 mg/mL SDV 2 mL 10 MG IVP (20:05)
[2019-08-20 20:53] LABS: Glucose Point of Care 205 mg/dL (70-110)
--- NOTE | 2019-08-20 21:33 | ECG_ITS ---
Measurements Intervals [place] Rate: 82 P: MD: 0 QRS: 55 QRSD: 144 T: -43 QT: 358 QTc: 420 ATRIAL FLUTTER/TACHYCARDIA RIGHT BUNDLE BRANCH BLOCK [120+ ms QRS DURATION, UPRIGHT V1, 40+ ms S IN I/aV I/aVL/V4/V5/V6] INTERPRETATION BASED ON A DEFAULT AGE OF 40 YEARS Compared to ECG 08/20/2019 01:23:11 There is no significant change Electronically Signed On 08-21-2019 19:03:28 SKI BINDING FITTER AND REPAIRER by Ruchi Estrada M.D. [email or web address]
--- NOTE | 2019-08-20 21:51 | PC.NURSE ---
Patient incontienent of stool, medium amount of liquid stool in bed pads.
[2019-08-21] VITALS (15 sets, daily range): BP systolic 111–157; BP diastolic 55–77; PULSE 73–84; RESP 11–20; TEMP 36.6–37.4; O2SAT 90–98
--- NOTE | 2019-08-21 00:44 | PC.NURSE ---
patient came to floor from icu tx in her bed, transferred beds, she alert and oriented, no complaints of pain but feeling a little nauseous, with cpap in tow.
[2019-08-21 06:27] LABS: Glucose Point of Care 144 mg/dL (70-110)
[2019-08-21 06:29] LABS: Basophils # 0.1 10^3/uL (0.0-0.1); Basophils % 0.4 %; Eosinophils % 0.2 %; Hematocrit 27.6 % (37.0-47.0); Hemoglobin 8.9 g/dL (11.5-15.3); Lymphocytes % 7.1 %; Mean Corpuscular HGB Conc 32.2 g/dL (30.0-36.0); Mean Corpuscular Hemoglobin 29.8 pg (28.0-34.0); Mean Corpuscular Volume 92.3 fL (81-99); Mean Platelet Volume 10.9 fL (7.4-10.4); Monocytes # 1.4 10^3/uL (0.2-0.9); Monocytes % 10.3 %; Neutrophils # 10.8 10^3/uL (1.8-7.7); Neutrophils % 81.2 %; Nucleated Red Blood Cells % 0 %; Platelet Count 132 10^3/cmm (130-400); Red Blood Count 2.99 10^6/uL (4.1-5.3); Red Cell Distribution Width 15.9 % (12.1-15.1); White Blood Count 13.3 10^3/uL (4.0-10.0)
[2019-08-21 06:44] LABS: Albumin Level 4.3 g/dL (3.5-5.2); Alkaline Phosphatase 108 IU/L (35-105); Chloride 107 mmol/L (98-107); Potassium 3.3 mmol/L (3.5-5.1); Sodium 149 mmol/L (136-145)
[2019-08-21 07:09] LABS: Anion Gap 19.3 (5-19); Aspartate Amino Transferase 39 U/L (0-32); Blood Urea Nitrogen 38 mg/dL (8-23); Calcium 9.1 mg/dL (8.5-10.5); Carbon Dioxide 26 mmol/L (22-29); Glomerular Filtration Rate 23.4 mL/min (90-130); Glucose 154 mg/dL (65-115); Total Bilirubin 0.9 mg/dL (0.15-1.2); Total Protein 6.3 g/dL (6.6-8.7)
[2019-08-21 07:19] LABS: Alanine Aminotransferase 13 U/L (0-33)
[2019-08-21] MEDS: apixaban 5 mg Tablet 2.5 MG PO ×2 (08:24→17:08)
[2019-08-21] MEDS: bumetanide 1 mg Tablet 2 MG PO (08:24)
[2019-08-21] MEDS: levothyroxine 50 mcg Tablet PO (08:24)
[2019-08-21] MEDS: isosorbide mononitrate ER 30 mg Tablet PO (08:24)
[2019-08-21] MEDS: pantoprazole DR 40 mg Tablet 20 MG PO (08:24)
--- NOTE | 2019-08-21 09:33 | ECG_ITS ---
Measurements Intervals [place] Rate: 80 P: [place]: 0 QRS: 71 QRSD: 149 T: -34 QT: 405 QTc: 468 ATRIAL FIBRILLATION RIGHT BUNDLE BRANCH BLOCK [120+ ms QRS DURATION, UPRIGHT V1, 40+ ms S IN I/aVL/V4/V5/V6] Compared to ECG 08/20/2019 01:23:11 Right bundle-branch block now present Atrial flutter no longer present Intraventricular conduction delay no longer present Electronically Signed On 08-21-2019 19:06:56 RADIOGRAPHER ANGIOGRAM by Ruchi Estrada M.D. [email or web address]
[2019-08-21] MEDS: morphine 4 mg/mL SDV 1 mL IVP ×2 (09:37→18:24)
--- NOTE | 2019-08-21 10:30 | PC.NURSE ---
PATIENT NOTED TO HAVE CHEST PAIN. ORIGINATES AROUND THE XIPHOID PROCESS AND RADIATING TO THE LEFT CHEST AND DOWN THE LEFT ARM. NOTED TO BE A DULL ACHE THAT WAS CONTINUOUS. VITAL SIGNS STABLE. DR. APPIAH AND DR. SIFUENTES NOTIFIED. EKG OBTAINED, NO NEW CHANGES. MORPHINE ADMINISTERED PER PREVIOUS ORDER. PAIN LEVEL IS NOW A ZERO AFTER MORPHINE ADMINISTRATION.
[2019-08-21 11:54] LABS: Glucose Point of Care 264 mg/dL (70-110)
--- NOTE | 2019-08-21 13:22 | PC.CHAP ---
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 [] Patient/Family/Request visit [] Outpatient visit [] Follow-up visit [] Physician referral [] Code/Alert [X] Routine visit [] Staff referral [] Actively dying [] Patient sleeping [] Family support [] [] Out of room [] Palliative care [] [] Receiving care in room [] Pre-surgical visit [] Trauma [] Long length of stay [] ICU visit [] Other: Relational/Emotional Strength [] Patient feels connected with others/family/visitors/staff [] Distress [] Loneliness/isolation [] Abandonment Spirituality of Patient [] Person of Shira [] Attends Jain of their Shira [] Believes in Prayer [] Reads Bible or Amish materials [] There are Spiritual issues to be addressed Spinning Operator Interventions [] Prayer [] Active listening [] Non-anxious presence [] Spiritual/emotional support [] Crisis/trauma care [] Spiritual counseling [] Bereavement support [] Provided bereavement packet [] Provided Bible/devotional materials [] Provided toy/stuffed animal, coloring book to patient or family member [] Provided Communion [] Anointing/[place] [] Salvation [] Completed spiritual assessment [] Other: Impact on Illness or Injury [] Angry [] Fearful [] Anxious [] Often cries [] Exhaustion [] Unable to work [] Unable to attend zoroastrian [] Unable to walk/stand [] Unable to read [] Unable to drive [] Unable to eat/drink [] Unable to sleep [] Unable to be with family [] Patient intubated [] Other: Summary Time spent with patient
--- NOTE | 2019-08-21 13:51 | P.PN_ITS ---
Subjective Subjective: Interval history: Had short episode of chest pain this morning. Overall no other complaint. Vitals/I&O/Wt Last Vital Signs Temp 98.0 F 08/21/19 10:51 Pulse 82 08/21/19 10:51 Resp 20 H 08/21/19 10:51 BP 152/74 08/21/19 10:51 Pulse Ox 98 08/21/19 10:51 08/20/19 08/21/19 08/21/19 22:59 06:59 14:59 Intake Total 200 / 550 120 / 670 480 / 480 Output Total 1560 / 1560 1000 / 2560 Balance -1360 / -1010 -880 / -1890 480 / 480 Weight last 48 hrs Weight 182 lb Physical Exam Narrative: EXAM NARRATIVE: GENERAL: Patient is awake oriented but lethargic NECK: No jugular vein distension. HEENT: No cyanosis. No icterus. No pallor. HEART: Regularly irregular S1 and S2. No murmur, rub or gallop. LUNGS: Decrease breath sound but no crepitus. ABDOMEN: Soft, nontender and nondistended. Positive bowel sounds. No guarding, rebound or tenderness. CENTRAL NERVOUS SYSTEM: Grossly nonfocal. EXTREMITIES: Lower extremities without edema bilaterally. HENMT: THROAT: no uvular edema Data : 08/21/19 06:20 08/21/19 06:20 Micro: Microbiology 08/19/19 20:13 Urine Culture - Preliminary Urine,Clean Catch Gram Negative Rods 08/20/19 17:35 C.difficile Toxin B Gene (PCR) - Final Stool A&P Assessment and plan (1) Atrial flutter: Rate controlled on anticoagulation. Continue medicine Status: Acute Code(s): I48.92 - Unspecified atrial flutter (2) Acute kidney injury superimposed on chronic kidney disease: Remained stable. Continue to monitor. Continue current regimen Status: Acute Code(s): N17.9 - Acute kidney failure, unspecified; N18.9 - Chronic kidney disease, unspecified (3) Heart failure with preserved ejection fraction: Appeared to be compensated, Continue current management Status: Acute Code(s): I50.30 - Unspecified diastolic (congestive) heart failure (4) Chest pain: Had one episode of chest pain this morning Due to renal failure we will continue to manage her medically. I have discussed with the patient and she is not also interested in invasive therapy at this point it is not suggested as well. Status: Acute Code(s): R07.9 - Chest pain, unspecified Attestations Medical Necessity Statement*: Requires continuation of hospitalization for above defined Care. 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
[2019-08-21] MEDS: acetaminophen 325 mg Tablet 650 MG PO (17:07)
[2019-08-21 17:14] LABS: Glucose Point of Care 460 mg/dL (70-110)
--- NOTE | 2019-08-21 17:23 | PC.NURSE ---
DR. APPIAH NOTIFIED OF BLOOD SUGAR OF 460. ORDERED TO GIVE THE PROTOCOL DOSE OF 16 UNITS OF NOVOLOG AND CHANGE PATIENTS DIET TO CARDIAC CONSISTENT CARB.
[2019-08-21 20:56] LABS: Glucose Point of Care 285 mg/dL (70-110)
--- NOTE | 2019-08-21 21:21 | P.PN_ITS ---
Subjective Subjective: Interval history: This morning had a brief episode of chest pain, however, it had since resolved, and during my visit was asymptomatic. Has had fewer bowel movements today. Vitals/I&O/Wt Last Vital Signs Temp 98.4 F 08/21/19 20:04 Pulse 77 08/21/19 19:51 Resp 17 08/21/19 19:51 BP 157/76 08/21/19 19:51 Pulse Ox 96 08/21/19 19:51 08/21/19 08/21/19 08/21/19 06:59 14:59 22:59 Intake Total 120 / 670 480 / 480 120 / 600 Output Total 1000 / 2560 1500 / 1500 Balance -880 / -1890 480 / 480 -1380 / -900 Physical Exam Const: COMMON NORMALS: no apparent distress and oriented x3 NUTRITIONAL APPEARANCE: obese HENMT: COMMON NORMALS: oropharynx normal Neck/C-Spine: COMMON NORMALS: no JVD Resp: COMMON NORMALS: normal respiratory effort and clear to auscultation bilaterally AUSCULTATION: clear to auscultation bilaterally Cardio: COMMON NORMALS: no JVD, regular rhythm, S1 normal heart sound, S2 normal heart sound and no murmurs RHYTHM: regular rhythm HEART SOUNDS: S1 normal and S2 normal GI: COMMON NORMALS: normal to inspection, nondistended, normoactive bowel sounds, soft to palpation and non-tender PALPATION: Yes soft Extremity: COMMON NORMALS: no joint enlargement NARRATIVE EXTREMITY EXAM: 2+ LE edema Neuro: COMMON NORMALS: oriented x3 and moves all extremities Skin: COMMON NORMALS: no rashes or lesions noted GENERAL SKIN EXAM: no rashes or lesions noted Data : 08/21/19 06:20 08/21/19 06:20 Micro: Microbiology 08/19/19 20:13 Urine Culture - Preliminary Urine,Clean Catch Gram Negative Rods 08/20/19 17:35 C.difficile Toxin B Gene (PCR) - Final Stool A&P Assessment and plan (1) Atrial flutter: Heart rate improved to 70s. Brief episode of chest comfort this morning. Continue Eliquis. Status: Acute Code(s): I48.92 - Unspecified atrial flutter (2) Grade II diastolic dysfunction: Status: Acute Code(s): I51.9 - Heart disease, unspecified (3) Heart failure with preserved ejection fraction: Acute on chronic CHF. TTE as above. Reports abdominal distention within the last day or so. Painless. Will assess limited ultrasound for ascites. Continue Bumex. Monitor I&O. Status: Acute Code(s): I50.30 - Unspecified diastolic (congestive) heart failure (4) Acute kidney injury superimposed on chronic kidney disease: Discussed with her creatinine elevation. Creatinine is stable and appears to be perhaps very slightly above her baseline around 1.9. She is says that she avoids NSAIDs. Has taken some aspirin. He is aware of chronic kidney disease. Monitor renal function with diuresis. Status: Acute Code(s): N17.9 - Acute kidney failure, unspecified; N18.9 - Chronic kidney disease, unspecified (5) UTI (urinary tract infection): Gram-negative saad. Add Rocephin. Follow-up culture. Status: Acute Code(s): N39.0 - Urinary tract infection, site not specified Additional A&P Information Abnormal stress test: With suspected coronary disease. At this time a candidate for angiographic assessment due to poor renal function. Hypothyroidism: TSH is normal. Continue levothyroxine 50 mcg Brief episode of chest pain this morning Attestations Medical Necessity Statement*: Continue admission for assessment management of new onset a flutter, suspected coronary artery disease, UTI. 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
[2019-08-21] MEDS: cefTRIAXone 1,000 MG in sodium chloride 0.9% (plus) 50 ML 100 MG IV (21:34)
[2019-08-22] VITALS (11 sets, daily range): BP systolic 129–163; BP diastolic 64–83; PULSE 71–89; RESP 8–20; TEMP 36.7–37.1; O2SAT 92–99
[2019-08-22] MEDS: morphine 4 mg/mL SDV 1 mL IVP ×2 (00:18→07:43)
[2019-08-22 06:14] LABS: Basophils % 0.3 %; Eosinophils # 0.2 10^3/uL (0.0-0.8); Eosinophils % 1.4 %; Hematocrit 30.9 % (37.0-47.0); Hemoglobin 9.6 g/dL (11.5-15.3); Lymphocytes # 0.9 10^3/uL (0.8-4.8); Lymphocytes % 7.3 %; Mean Corpuscular HGB Conc 31.1 g/dL (30.0-36.0); Mean Corpuscular Hemoglobin 29.4 pg (28.0-34.0); Mean Corpuscular Volume 94.8 fL (81-99); Mean Platelet Volume 10.8 fL (7.4-10.4); Monocytes # 1.4 10^3/uL (0.2-0.9); Monocytes % 11.8 %; Neutrophils # 9.2 10^3/uL (1.8-7.7); Neutrophils % 78.8 %; Nucleated Red Blood Cells % 0 %; Platelet Count 140 10^3/cmm (130-400); Red Blood Count 3.26 10^6/uL (4.1-5.3); Red Cell Distribution Width 15.8 % (12.1-15.1); White Blood Count 11.7 10^3/uL (4.0-10.0)
--- NOTE | 2019-08-22 06:27 | PC.NURSE ---
HOUSE SUP PUT IN IV TO RIGHT FA 20G. FLUSHES WELL. PT TOLERATED WELL. WILL CONTINUE TO MONITOR.
[2019-08-22 06:37] LABS: Glucose Point of Care 222 mg/dL (70-110)
[2019-08-22 06:42] LABS: Alanine Aminotransferase 24 U/L (0-33); Albumin Level 3.2 g/dL (3.5-5.2); Alkaline Phosphatase 85 IU/L (35-105); Anion Gap 15.3 (5-19); Aspartate Amino Transferase 107 U/L (0-32); Blood Urea Nitrogen 30 mg/dL (8-23); Calcium 9.2 mg/dL (8.5-10.5); Carbon Dioxide 27 mmol/L (22-29); Chloride 95 mmol/L (98-107); Glomerular Filtration Rate 26.2 mL/min (90-130); Glucose 230 mg/dL (65-115); Potassium 3.3 mmol/L (3.5-5.1); Sodium 134 mmol/L (136-145); Total Bilirubin 1.2 mg/dL (0.15-1.2); Total Protein 7.2 g/dL (6.6-8.7)
[2019-08-22] MEDS: sennosides-docusate Tablet 1 TAB PO ×2 (09:44→17:15)
[2019-08-22] MEDS: bumetanide 1 mg Tablet 2 MG PO (09:44)
[2019-08-22] MEDS: pantoprazole DR 40 mg Tablet 20 MG PO (09:44)
[2019-08-22] MEDS: apixaban 5 mg Tablet 2.5 MG PO ×2 (09:44→17:15)
[2019-08-22] MEDS: isosorbide mononitrate ER 30 mg Tablet PO (09:44)
[2019-08-22] MEDS: levothyroxine 50 mcg Tablet PO (09:44)
[2019-08-22 11:59] LABS: Glucose Point of Care 301 mg/dL (70-110)
[2019-08-22] MEDS: bumetanide 0.25 mg/mL SDV 10 mL 2 MG IV (14:10)
--- NOTE | 2019-08-22 15:54 | P.PN_ITS ---
Subjective Subjective: Interval history: Continues to have mild nonspecific chest pressure. Overall she is feeling better heart rate is under control. Medications: Reviewed: Yes Vitals/I&O/Wt Last Vital Signs Temp 98.7 F 08/22/19 15:16 Pulse 74 08/22/19 15:16 Resp 20 H 08/22/19 15:16 BP 129/68 08/22/19 15:16 Pulse Ox 93 08/22/19 15:16 08/22/19 08/22/19 08/22/19 06:59 14:59 22:59 Intake Total 480 / 480 Output Total Balance 480 / 480 Physical Exam Narrative: EXAM NARRATIVE: GENERAL: Patient is awake oriented but lethargic NECK: No jugular vein distension. HEENT: No cyanosis. No icterus. No pallor. HEART: Regularly irregular S1 and S2. No murmur, rub or gallop. LUNGS: Inspiratory crackles on the right side. ABDOMEN: Soft, nontender and nondistended. Positive bowel sounds. No guarding, rebound or tenderness. CENTRAL NERVOUS SYSTEM: Grossly nonfocal. EXTREMITIES: Lower extremities without edema bilaterally. HENMT: THROAT: no uvular edema Data : 08/22/19 06:10 08/22/19 06:10 Micro: Microbiology 08/19/19 20:13 Urine Culture - Final Urine,Clean Catch Escherichia coli A&P Assessment and plan (1) Atrial flutter: Rate controlled , Continue medicine. Patient is on end-diastolic Status: Acute Code(s): I48.92 - Unspecified atrial flutter (2) Acute kidney injury superimposed on chronic kidney disease: Has improved. Status: Acute Code(s): N17.9 - Acute kidney failure, unspecified; N18.9 - Chronic kidney disease, unspecified (3) Heart failure with preserved ejection fraction: Not well compensated today. I will give extra Bumex, We'll replenish potassium. Status: Acute Code(s): I50.30 - Unspecified diastolic (congestive) heart failure (4) Chest pain: We will continue to optimize medicine. I will increase imdur to teice a day Status: Acute Code(s): R07.9 - Chest pain, unspecified Attestations Medical Necessity Statement*: Requires continuation hospitalization for above defined care. 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
[2019-08-22 16:28] LABS: Glucose Point of Care 288 mg/dL (70-110)
--- NOTE | 2019-08-22 17:05 | P.PN_ITS ---
Subjective Subjective: Interval history: Persistent mild nonspecific chest pressure, 4/10, somewhat worse with palpation. Medications: Reviewed: Yes Vitals/I&O/Wt Last Vital Signs Temp 98.7 F 08/22/19 15:16 Pulse 74 08/22/19 15:16 Resp 20 H 08/22/19 15:16 BP 129/68 08/22/19 15:16 Pulse Ox 93 08/22/19 15:16 08/22/19 08/22/19 08/22/19 06:59 14:59 22:59 Intake Total 480 / 480 Output Total 1350 / 1350 Balance 480 / 480 -1350 / -870 Physical Exam Const: COMMON NORMALS: no apparent distress and oriented x3 NUTRITIONAL APPEARANCE: obese OTHER: Sitting up in chair. HENMT: COMMON NORMALS: oropharynx normal Neck/C-Spine: COMMON NORMALS: no JVD Resp: COMMON NORMALS: normal respiratory effort and clear to auscultation bilaterally AUSCULTATION: clear to auscultation bilaterally Cardio: COMMON NORMALS: no JVD, regular rhythm, S1 normal heart sound, S2 normal heart sound and no murmurs RHYTHM: regular rhythm HEART SOUNDS: S1 normal and S2 normal GI: COMMON NORMALS: normal to inspection, nondistended, normoactive bowel sounds, soft to palpation and non-tender PALPATION: Yes soft Extremity: COMMON NORMALS: no joint enlargement NARRATIVE EXTREMITY EXAM: 2+ LE edema above ankle, but not anymore at the ankle. Neuro: COMMON NORMALS: oriented x3 and moves all extremities Skin: COMMON NORMALS: no rashes or lesions noted GENERAL SKIN EXAM: no rashes or lesions noted Data : 08/22/19 06:10 08/22/19 06:10 Micro: Microbiology 08/19/19 20:13 Urine Culture - Final Urine,Clean Catch Escherichia coli A&P Assessment and plan (1) Atrial flutter: Some mild persistent chest pressure, although symptoms not typical, n onspecific. Appears to report some reproducibility on palpation. Continue Eliquis. Occasional bradycardia down to 40s on telemetry. Continue to monitor. Status: Acute Code(s): I48.92 - Unspecified atrial flutter (2) Grade II diastolic dysfunction: Status: Acute Code(s): I51.9 - Heart disease, unspecified (3) Heart failure with preserved ejection fraction: Acute on chronic CHF. TTE as above. Extra Bumex per cardiology today. No ascites on abdominal ultrasound. Monitor I&O. Status: Acute Code(s): I50.30 - Unspecified diastolic (congestive) heart failure (4) Acute kidney injury superimposed on chronic kidney disease: Discussed with her creatinine elevation. Creatinine is stable and appears to be nearing her baseline around 1.9. She says that she avoids NSAIDs. Has taken some aspirin. He is aware of chronic kidney disease. Monitor renal function with diuresis. Status: Acute Code(s): N17.9 - Acute kidney failure, unspecified; N18.9 - Chronic kidney disease, unspecified (5) UTI (urinary tract infection): Pansensitive E. coli. On Rocephin. Status: Acute Code(s): N39.0 - Urinary tract infection, site not specified Additional A&P Information Abnormal stress test: With suspected coronary disease. At this time not a candidate for angiographic assessment due to poor renal function. Hypothyroidism: TSH is normal. Continue levothyroxine 50 mcg Brief episode of chest pain this morning Attestations Medical Necessity Statement*: Continue admission for optimization of medical management of acute CHF, monitor regarding atrial fibrillation with slow ventricular response and intermittent bradycardia. 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
[2019-08-22 20:37] LABS: Glucose Point of Care 265 mg/dL (70-110)
[2019-08-22] MEDS: cefTRIAXone 1,000 MG in sodium chloride 0.9% (plus) 50 ML 100 MG IV (20:47)
[2019-08-23 04:34] VITALS: BP 148/69; PULSE 78; RESP 18; TEMP 37.4; O2SAT 99
[2019-08-23 05:17] LABS: Basophils % 0.4 %; Eosinophils # 0.2 10^3/uL (0.0-0.8); Eosinophils % 1.6 %; Hematocrit 27.5 % (37.0-47.0); Hemoglobin 8.9 g/dL (11.5-15.3); Lymphocytes # 1.1 10^3/uL (0.8-4.8); Lymphocytes % 10.6 %; Mean Corpuscular HGB Conc 32.4 g/dL (30.0-36.0); Mean Corpuscular Hemoglobin 29.9 pg (28.0-34.0); Mean Corpuscular Volume 92.3 fL (81-99); Mean Platelet Volume 11.8 fL (7.4-10.4); Monocytes % 9.6 %; Neutrophils # 7.9 10^3/uL (1.8-7.7); Neutrophils % 77.4 %; Nucleated Red Blood Cells % 0 %; Platelet Count 147 10^3/cmm (130-400); Red Blood Count 2.98 10^6/uL (4.1-5.3); Red Cell Distribution Width 15.8 % (12.1-15.1); White Blood Count 10.2 10^3/uL (4.0-10.0)
[2019-08-23 05:46] LABS: Alanine Aminotransferase 20 U/L (0-33); Albumin Level 3.3 g/dL (3.5-5.2); Alkaline Phosphatase 83 IU/L (35-105); Anion Gap 17.7 (5-19); Aspartate Amino Transferase 56 U/L (0-32); Blood Urea Nitrogen 34 mg/dL (8-23); Calcium 9.3 mg/dL (8.5-10.5); Carbon Dioxide 29 mmol/L (22-29); Chloride 96 mmol/L (98-107); Globulin 3.5 g/dL (1.3-4.6); Glomerular Filtration Rate 27.9 mL/min (90-130); Glucose 229 mg/dL (65-115); Osmolality Calculated 293 mOsm/kg (285-295); Potassium 3.7 mmol/L (3.5-5.1); Sodium 139 mmol/L (136-145); Total Bilirubin 0.9 mg/dL (0.15-1.2); Total Protein 6.8 g/dL (6.6-8.7)
[2019-08-23 06:22] LABS: Glucose Point of Care 203 mg/dL (70-110)
[2019-08-23 07:12] VITALS: BP 145/66; PULSE 82; RESP 17; TEMP 37.5; O2SAT 94
[2019-08-23 07:37] VITALS: PULSE 68; RESP 16; O2SAT 96
[2019-08-23] MEDS: sennosides-docusate Tablet 1 TAB PO ×2 (08:44→17:35)
[2019-08-23] MEDS: bumetanide 1 mg Tablet 2 MG PO (08:44)
[2019-08-23] MEDS: isosorbide mononitrate ER 30 mg Tablet PO (08:45)
[2019-08-23] MEDS: apixaban 5 mg Tablet 2.5 MG PO ×2 (08:45→17:35)
[2019-08-23] MEDS: levothyroxine 50 mcg Tablet PO (08:45)
[2019-08-23] MEDS: pantoprazole DR 40 mg Tablet 20 MG PO (08:45)
--- NOTE | 2019-08-23 10:04 | PC.SOCIAL ---
IMM Update Pg 2 of IMM given and explained to patient who verbalized understanding. Signed, dated, and timed, and placed in chart. Copy provided to patient.
[2019-08-23 11:03] VITALS: BP 150/71; PULSE 73; RESP 16; TEMP 37.2; O2SAT 96
[2019-08-23 11:55] LABS: Glucose Point of Care 321 mg/dL (70-110)
[2019-08-23 15:01] VITALS: BP 110/58; PULSE 57; RESP 10; TEMP 37.2; O2SAT 96
[2019-08-23 16:52] VITALS: BP 110/58; PULSE 57; RESP 10; TEMP 37.2; O2SAT 96
[2019-08-23 17:28] LABS: Glucose Point of Care 246 mg/dL (70-110)
--- NOTE | 2019-08-23 19:38 | P.DS_ITS ---
Discharge Providers Date of Admission: 08/20/19 10:10 Date of Discharge: August 23, 2019 Attending Provider at Admission: Ruchi Malloy MD Attending Provider at Discharge: Tino Mcintyre Primary Care Provider: Betsy Nuno DO Diagnoses at Discharge Discharge Diagnosis (1) Atrial flutter: Status: Acute (2) Acute kidney injury superimposed on chronic kidney disease: Status: Acute (3) Heart failure with preserved ejection fraction: Status: Acute (4) Chest pain: Status: Acute (5) UTI (urinary tract infection): Status: Acute (6) Grade II diastolic dysfunction: Status: Acute Reason for Visit Reason for Visit: Reason For Visit: CHEST PAIN Hospital Course Hospital Course: This pleasant 68-year-old lady was admitted after presenting with complaint of chest pain with initial assessment and ER revealing new onset atrial flutter with slow ventricular response, subsequent with noted nighttime bradycardia heart rates down into the 40s, but not symptomatic, with noted acute on chronic diastolic congestive heart failure, as well as acute kidney injury on top of chronic kidney disease, and subsequently UTI due to E. coli. She was started on anticoagulation for stroke risk mitigation, did not require any rate control. Received treatment with diuretics for CHF. Her kidney injury gradually improved with creatinine trending down closer to her baseline. Due to chest pain and new onset arrhythmia underwent stress testing with finding of fixed inferior defect, possibly artifact, as well as reversible inferolateral defect. Was assessed by cardiology and due to renal failure found a poor candidate for angiographic assessment at this time. She is continued on medical therapy. Her symptoms improved, with only minimal atypical, nonspecific chest discomfort reproducible on palpation. Per discussion with cardiology was cleared for discharge today and will follow-up in clinic. She has been feeling better, although with still some mild generalized weakness which is quested to improve after treatment of urinary tract infection. Physical Exam Const: COMMON NORMALS: no apparent distress and oriented x3 NUTRITIONAL APPEARANCE: obese OTHER: Comfortable. In good spirits. HENMT: COMMON NORMALS: oropharynx normal Neck/C-Spine: COMMON NORMALS: no JVD Resp: COMMON NORMALS: normal respiratory effort and clear to auscultation bilaterally AUSCULTATION: clear to auscultation bilaterally Cardio: COMMON NORMALS: no JVD, regular rhythm, S1 normal heart sound, S2 normal heart sound and no murmurs RHYTHM: regular rhythm HEART SOUNDS: S1 normal and S2 normal GI: COMMON NORMALS: normal to inspection, nondistended, normoactive bowel sounds, soft to palpation and non-tender PALPATION: Yes soft Extremity: COMMON NORMALS: no joint enlargement NARRATIVE EXTREMITY EXAM: 1+ LE edema above ankle, but not anymore at the ankle. Neuro: COMMON NORMALS: oriented x3 and moves all extremities Skin: COMMON NORMALS: no rashes or lesions noted GENERAL SKIN EXAM: no rashes or lesions noted Discharge Data Data Completed and Pending: Completed Studies During Hospitalization Category Date Time Status Sestamibi Stress Test Request Routi ne Exams 08/20/19 06:00 Completed XR chest 1V jenna ble [id number] Stat Exams 08/19/19 19:03 Completed NM luis alfredo perf SPECT r/s* [id number] Routin e Nuc Med 08/20/19 07:00 Completed CV echo complete* [id number] Routine Ultrasound 08/20/19 09:59 Completed US abdomen limite d [id number] Routine Ultrasound 08/20/19 09:57 Completed Pending at discharge Category Date Time Status Sestamibi Stress Test Request Routi ne Exams 08/20/19 06:00 Ordered Labs from last 24 hours 08/23/19 08/23/19 08/23/19 16:34 11:04 06:15 WBC RBC Hgb Hct MCV MCH MCHC RDW Plt Count MPV Neut % (Auto) Lymph % (Auto) Crawford % (Auto) Eos % (Auto) Baso % (Auto) Neut # (Auto) Lymph # (Auto) Crawford # (Auto) Eos # (Auto) Baso # (Auto) Nucleated RBC % (a uto) Nucleated RBCs # Sodium Potassium Chloride Carbon Dioxide Anion Gap BUN Creatinine GFR Calculation Glucose POC Glucose 246 321 203 Calculated Osmolal ity Calcium Total Bilirubin AST ALT Alkaline Phosphata se Total Protein Albumin Globulin 08/23/19 08/23/19 08/22/19 04:11 04:11 20:24 WBC 10.2 H RBC 2.98 L Hgb 8.9 L Hct 27.5 L MCV 92.3 MCH 29.9 MCHC 32.4 RDW 15.8 H Plt Count 147 MPV 11.8 H Neut % (Auto) 77.4 Lymph % (Auto) 10.6 Crawford % (Auto) 9.6 Eos % (Auto) 1.6 Baso % (Auto) 0.4 Neut # (Auto) 7.9 H Lymph # (Auto) 1.1 Crawford # (Auto) 1.0 H Eos # (Auto) 0.2 Baso # (Auto) 0.0 Nucleated RBC % (a uto) 0 Nucleated RBCs # 0.0 Sodium 139 Potassium 3.7 Chloride 96 L Carbon Dioxide 29 Anion Gap 17.7 BUN 34 H Creatinine 1.8 H GFR Calculation 27.9 L Glucose 229 H POC Glucose 265 Calculated Osmolal ity 293 Calcium 9.3 Total Bilirubin 0.9 AST 56 H ALT 20 Alkaline Phosphata se 83 Total Protein 6.8 Albumin 3.3 L Globulin 3.5 Vitals: Last Vital Signs Temp 98.9 F 08/23/19 16:52 Pulse 57 L 08/23/19 16:52 Resp 10 L 08/23/19 16:52 BP 110/58 08/23/19 16:52 Pulse Ox 96 08/23/19 16:52 Discharge Plan Discharge Patient Disposition: Home Health Service Condition: Stable Prescriptions: New Eliquis 5 mg Tablet 2.5 mg PO BID Qty: 30 RF: 0 aspirin 81 mg tablet,delayed release (DR/EC) 81 mg PO DAILY Qty: 30 RF: 0 ciprofloxacin HCl 250 mg tablet 250 mg PO BID Qty: 4 RF: 0 Continued bumetanide 2 mg tablet 2 mg PO DAILY RF: 0 fentanyl 50 mcg/hr patch 72 hour 50 mcg topical Q72H RF: 0 gabapentin 100 mg capsule 100 mg PO BEDTIME RF: 0 glipizide 10 mg tablet 10 mg PO DAILY RF: 0 levothyroxine 50 mcg tablet 50 mcg PO DAILY RF: 0 metoprolol tartrate 50 mg tablet 50 mg PO BID RF: 0 insulin aspart U-100 [Novolog Flexpen U-100 Insulin] 100 unit/mL (3 mL) insulin pen See Protocol unit SUBCUT AC RF: 0 potassium chloride 10 mEq tablet extended release 10 meq PO DAILY RF: 0 rosuvastatin 20 mg tablet 20 mg PO BEDTIME RF: 0 prednisone 20 mg tablet 10 mg PO DAILY RF: 0 sertraline 25 mg tablet 25 mg PO DAILY RF: 0 Changed isosorbide mononitrate 30 mg tablet extended release 24 hr 30 mg PO BID Qty: 0 RF: 0 Discontinued nifedipine 30 mg tablet extended release 24hr 30 mg PO DAILY RF: 0 Discharge Orders: Discharge Order (Routine); Ordered 08/23/19 Ordered By: Tino Mcintyre Referrals: Ruchi Estrada MD [Physician] - 1 month (A hospital follow up with Dr. Estrada has been made for September 21 at 2:30pm) Catrachita Caraballo FNP [Nurse Practitioner] - 1 week (A one week appointment has been made with Catrachita Carab[facility] at [facility] for August 31 at 10:30.) Betsy Nuno DO [Primary Care Provider] - 4-7 days (You have an hospital follow up appointment with Primary Care Physician Dr. Nuno August 30 at 1:30 on Friday.) Discharge Diet: Cardiac and Diabetic Discharge Activity: Increase activity as tolerated Patient Instructions: Ciprofloxacin (By mouth), Aspirin (By mouth), Apixaban (By mouth), Heart Failure (DC), Atrial Flutter (DC), Chest Pain (DC), Urinary Tract Infection in Women (DC), Chest Pain Stoplight Activity Restrictions/Additional Instructions: Monitor your heart rate and blood pressure 3 times daily, record values. If you experience non-resolving chest pain, very low heart rate, low blood pressure, or other abnormal symptoms, please seek medical attention. Avoid any NSAIDs like ibuprofen, Aleve, etc. 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
--- NOTE | 2019-08-23 20:22 | PC.NURSE ---
costa dc per dr order. 10 ml water removed from balloon. pt tolerated well.
== END 2019-08-23 18:23 | disposition home health service (06) | DRG 308 ==
LOC: ER 19:07 → ICU 21:51 → CSU 08-20 23:59
PROVIDERS: Admitting Provider Internal Medicine; Emergency Provider Emergency Medicine; Family Provider Family Medicine; PCP Family Medicine; Visit Provider Internal Medicine
DX: I48.92 Unspecified atrial flutter (principal); I50.33 Acute on chronic diastolic (congestive) heart failure; N17.9 Acute kidney failure, unspecified; N39.0 Urinary tract infection, site not specified; I13.0 Hypertensive heart and chronic kidney disease with heart failure and stage 1 through stage 4 chronic kidney disease, or unspecified chronic kidney disease; I25.110 Atherosclerotic heart disease of native coronary artery with unstable angina pectoris; B96.20 Unspecified Escherichia coli [E. coli] as the cause of diseases classified elsewhere; E03.9 Hypothyroidism, unspecified; E78.5 Hyperlipidemia, unspecified; I25.2 Old myocardial infarction; K21.9 Gastro-esophageal reflux disease without esophagitis; Z79.4 Long term (current) use of insulin; E11.22 Type 2 diabetes mellitus with diabetic chronic kidney disease; Z87.891 Personal history of nicotine dependence; N18.9 Chronic kidney disease, unspecified
CPT/HCPCS: 12345; 36415; 36416; 36600; 71045; 76705; 78452; 80048; 80053; 81001; 82803; 82962; 83690; 83735; 83880; 84443; 84484; 85025; 87077; 87086; 87186; 87493; 87804; 93005; 93017; 93306; 94660; 96372; 96374; 96375; 99284; A9500; G0378; J0696; J1815; J1940; J2270; J2405; J2765; J2785; J3490; J7030

== ENCOUNTER 2019-09-05 13:34 | Inpatient (IN) | payer MEDICARE, MEDICAID, SELFPAY ==
[2019-09-05] VITALS (26 sets, daily range): BP systolic 140–175; BP diastolic 75–95; PULSE 52–77; RESP 14–33; TEMP 36.7–36.9; O2SAT 95–99; BMI 36.3
--- NOTE | 2019-09-05 13:35 | ED_ITS ---
Entered by Loretta Harley, acting as scribe for Taj Briscoe DO Documented by User: Taj Briscoe DO 09/05/19 15:05 HPI - General Adult General: Chief complaint: Shortness of Breath/Dyspnea Stated complaint: SOB Time Seen by Provider: 09/05/19 13:35 History of Present Illness: HPI narrative: 68 yo female presents with shortness of breath. Pt states that this all started about 4 hours ago. Pt states that moving around makes her shortness of breath worse. Pt was seen here about a week ago and was released from the hospital last friday. complaint: shortness of breath Onset (ago): hour(s) (4) Location: chest Radiation: non-radiation Severity: moderate Quality: other (pressure) Pain Consistency: intermittent Relieving factors: none Exacerbating factors: movement Associated symptoms: Reports dyspnea Review of Systems General: Reports: 10 or more systems reviewed and unremarkable except in HPI and below Resp: Reports: shortness of breath PFSH ED PFSH: Medical History Adverse drug reaction Angina pectoris CAD (coronary artery disease) Cellulitis CHF (congestive heart failure) Dental caries Diabetes DJD (degenerative joint disease) Fibula fracture Gastroenteritis GERD (gastroesophageal reflux disease) HTN (hypertension) Hypercholesterolemia Hyperlipidemia Radius fracture Renal failure Rhabdomyolysis Tibia fracture UTI (urinary tract infection) Vertigo Surgical History History of cardiac catheterization History of hernia repair History of hip surgery History of hysterectomy History of knee surgery History of sinus surgery History of tonsillectomy History of umbilical hernia repair Family History Other Diabetes Stroke Denies family history of CAD (coronary artery disease) Clotting disorder Dementia Chronic kidney disease (CKD) Social History Smoking and tobacco status: never smoked Quit status (tobacco): has quit using tobacco Former quit date comment: Smoking in her 20s Alcohol intake: never Caregiver/support person: Yes (Home health services Friday) Lives independently: Yes Housing: House Physical Exam Const: COMMON NORMALS: no apparent distress, average body habitus, oriented x3, no limitations, healthy appearing, alert and well nourished HENMT: COMMON NORMALS: normocephalic, head/scalp atraumatic, hearing grossly normal bilaterally, external ears normal, EAC's normal, TM's normal bilaterally, external nose normal, nasal mucous membranes and turbinates normal, moist oral mucous membranes, oropharynx normal, dentition normal and gingiva normal HEAD & SCALP: normocephalic and atraumatic NOSE: external nose normal and nasal mucous membranes and turbinates normal EXTERNAL EAR: Yes external ears normal EXTERNAL AUDITORY CANAL: EAC's normal TYMPANIC MEMBRANE: TM's normal bilaterally Eye: COMMON NORMALS: PERRL, EOMs intact bilaterally, conjunctivae normal, no scleral icterus, no papilledema, normal visual rodrigez by confrontation and fundi normal bilaterally CONJUNCTIVA: Yes conjunctivae normal PUPIL: Yes PERRL DIRECT OPHTHALMOSCOPY: Yes no papilledema and Yes fundi normal bilaterally Neck/C-Spine: COMMON NORMALS: full ROM, no lymphadenopathy, supple, no meningeal signs, no JVD, thyroid normal and no carotid bruits THYROID: thyroi d normal Chest: COMMONS NORMALS: inspection of chest normal and palpation of chest normal Resp: AUSCULTATION: rales bilateral Cardio: COMMON NORMALS: no JVD, regular rate, regular rhythm, S1 normal heart sound, S2 normal heart sound, no gallops, no clicks, no murmurs, no rub and peripheral pulses 2+ throughout RATE: regular rate RHYTHM: regular rhythm HEART SOUNDS: S1 normal and S2 normal PERIPHERAL PULSES: pulses 2+ throughout GI: COMMON NORMALS: normal to inspection, nondistended, normoactive bowel sounds, soft to palpation, non-tender, no hepatosplenomegaly, no masses and no bruits PALPATION: Yes soft and Yes no hepatosplenomegaly : COMMON NORMALS: Yes no CVA tenderness and Yes external appearance normal BLADDER/KIDNEY EXAM: Yes no CVA tenderness Back/Pelvis: COMMON NORMALS: no CVA tenderness, thoracic and lumbar spine normal to inspection, no thoracic nor lumbar tenderness, thoraco-lumbar ROM normal and straight leg raise negative bilaterally Extremity: GENERAL: Yes edema Neuro: COMMON NORMALS: oriented x3 SENSORIUM/ORIENTATION: Yes alert MENINGEAL SIGNS: Yes no meningeal signs Skin: COMMON NORMALS: no rashes or lesions noted, no wounds, skin turgor normal, no jaundice, no petechiae and no mottling GENERAL SKIN EXAM: no rashes or lesions noted and turgor normal Course Vital Signs: Vital signs: Vital Signs Temperature 98.1 F 09/05/19 13:42 Pulse Rate 63 09/05/19 17:16 Respiratory Rate 14 09/05/19 18:26 Blood Pressure 163/80 09/05/19 17:16 Pulse Oximetry 98 09/05/19 17:16 [facility] - General Adult Lab Data: Labs: Lab Results 09/05/19 09/05/19 09/05/19 Range/Units 14:28 14:29 14:29 WBC 8.9 (4.0-10.0) 10^3/ uL RBC 3.56 L (4.1-5.3) 10^6/u L Hgb 10.6 L (11.5-15.3) g/dL Hct 34.3 L (37.0-47.0) % MCV 96.3 (81-99) fL MCH 29.8 (28.0-34.0) pg MCHC 30.9 (30.0-36.0) g/dL RDW 15.9 H (12.1-15.1) % Plt Count 281 (130-400) 10^3/c mm MPV 10.2 (7.4-10.4) fL Neut % (Auto) 73.6 % Lymph % (Auto) 16.3 % Stanton % (Auto) 6.6 % Eos % (Auto) 2.0 % Baso % (Auto) 0.8 % Neut # (Auto) 6.5 (1.8-7.7) 10^3/u L Lymph # (Auto) 1.4 (0.8-4.8) 10^3/u L Stanton # (Auto) 0.6 (0.2-0.9) 10^3/u L Eos # (Auto) 0.2 (0.0-0.8) 10^3/u L Baso # (Auto) 0.1 (0.0-0.1) 10^3/u L Nucleated RBC % (a uto) 0 % Nucleated RBCs # 0.0 /100WBC Sodium 139 (136-145) mmol/L Potassium 3.9 (3.5-5.1) mmol/L Chloride 100 (98-107) mmol/L Carbon Dioxide 26 (22-29) mmol/L Anion Gap 16.9 (5-19) BUN 27 H (8-23) mg/dL Creatinine 1.4 H (0.5-0.9) mg/dL GFR Calculation 37.3 L (90-130) mL/min Glucose 129 H (65-115) mg/dL Calculated Osmolal ity 287 (285-295) mOsm/k g Calcium 9.7 (8.5-10.5) mg/dL Total Bilirubin 1.2 (0.15-1.2) mg/dL AST 13 (0-32) U/L ALT 10 (0-33) U/L Alkaline Phosphata se 91 (35-105) IU/L Troponin T Baselin e (0-10) ng/mL NT-Pro-B Natriuret Pep 8389 H (0-125) pg/mL Total Protein 7.7 (6.6-8.7) g/dL Albumin 3.8 (3.5-5.2) g/dL Globulin 3.9 (1.3-4.6) g/dL Influenza Type A A g Negative (Negative) POC Influenza B Ag Negative (Negative) 09/05/19 Range/Units 17:50 WBC (4.0-10.0) 10^3/ uL RBC (4.1-5.3) 10^6/u L Hgb (11.5-15.3) g/dL Hct (37.0-47.0) % MCV (81-99) fL MCH (28.0-34.0) pg MCHC (30.0-36.0) g/dL RDW (12.1-15.1) % Plt Count (130-400) 10^3/c mm MPV (7.4-10.4) fL Neut % (Auto) % Lymph % (Auto) % Stanton % (Auto) % Eos % (Auto) % Baso % (Auto) % Neut # (Auto) (1.8-7.7) 10^3/u L Lymph # (Auto) (0.8-4.8) 10^3/u L Stanton # (Auto) (0.2-0.9) 10^3/u L Eos # (Auto) (0.0-0.8) 10^3/u L Baso # (Auto) (0.0-0.1) 10^3/u L Nucleated RBC % (a uto) % Nucleated RBCs # /100WBC Sodium (136-145) mmol/L Potassium (3.5-5.1) mmol/L Chloride (98-107) mmol/L Carbon Dioxide (22-29) mmol/L Anion Gap (5-19) BUN (8-23) mg/dL Creatinine (0.5-0.9) mg/dL GFR Calculation (90-130) mL/min Glucose (65-115) mg/dL Calculated Osmolal ity (285-295) mOsm/k g Calcium (8.5-10.5) mg/dL Total Bilirubin (0.15-1.2) mg/dL AST (0-32) U/L ALT (0-33) U/L Alkaline Phosphata se (35-105) IU/L Troponin T Baselin e 478 H* (0-10) ng/mL NT-Pro-B Natriuret Pep (0-125) pg/mL Total Protein (6.6-8.7) g/dL Albumin (3.5-5.2) g/dL Globulin (1.3-4.6) g/dL Influenza Type A A g (Negative) POC Influenza B Ag (Negative) EKG Data^: EKG 1: Computer generated interpretation: Chest X-Ray 09/05/19 14:12 IMPRESSION: Interstitial fibrosis. EKG 2: Computer generated interpretation: Chest X-Ray 09/05/19 14:12 IMPRESSION: Interstitial fibrosis. EKG 3: Computer generated interpretation: Chest X-Ray 09/05/19 14:12 IMPRESSION: Interstitial fibrosis. Discharge Plan Discharge Patient Disposition: Admitted As Inpatient Clinical Impression: ACS (acute coronary syndrome) Condition: Stable Referrals: Betsy Nuno DO [Primary Care Provider] - Sign Out Sign Out Data: Patient Sign Out occurred on 09/05/19 at 18:16. Patient's care was discussed, and care was transferred from to [facility]. Coding Level of Care Code ED Consulting Software Engineer for Chg Fwd Exam Comprehensive Documented by User: Adelita Javed 09/05/19 19:22 HPI - General Adult General: Chief complaint: Shortness of Breath/Dyspnea Stated complaint: SOB Time Seen by Provider: 09/05/19 13:35 PFSH ED PFSH: Medical History Adverse drug reaction Angina pectoris CAD (coronary artery disease) Cellulitis CHF (congestive heart failure) Dental caries Diabetes DJD (degenerative joint disease) Fibula fracture Gastroenteritis GERD (gastroesophageal reflux disease) HTN (hypertension) Hypercholesterolemia Hyperlipidemia Radius fracture Renal failure Rhabdomyolysis Tibia fracture UTI (urinary tract infection) Vertigo Surgical History History of cardiac catheterization History of hernia repair History of hip surgery History of hysterectomy History of knee surgery History of sinus surgery History of tonsillectomy History of umbilical hernia repair Family History Other Diabetes Stroke Denies family history of CAD (coronary artery disease) Clotting disorder Dementia Chronic kidney disease (CKD) Social History Smoking and tobacco status: never smoked Quit status (tobacco): has quit using tobacco Former quit date comment: Smoking in her 20s Alcohol intake: never Caregiver/support person: Yes (Home health services Friday) Lives independently: Yes Housing: House Course Vital Signs: Vital signs: Vital Signs Temperature 98.1 F 09/05/19 13:42 Pulse Rate 63 09/05/19 17:16 Respiratory Rate 14 09/05/19 18:26 Blood Pressure 163/80 09/05/19 17:16 Pulse Oximetry 98 09/05/19 17:16 MDM - General Adult MDM Narrative: Medical decision making narrative: 1834 -I was notified of a critical troponin from laboratory. The patient had previously been signed out to me at change of shift at [address] Briscoe. I reviewed the patient's first and second EKGs and was concerned about ST segment elevation inferiorly and laterally. These findings were very subtle but was a change in comparison to her old EKG. I sent the EKGs to Dr. Rome for review and he concurred with my assessment of ongoing ST elevation. A STEMI alert was called due to this concern. The patient was given aspirin, Plavix and heparin was withheld as the patient is on Eliquis. I reviewed the case with Dr. Infante. He agreed to come in and take the patient to the [facility] for emergent imaging. Upon my assessment the patient stated that she had chest pain at 7 out of 10. She did receive 1 sublingual nitroglycerin before being converted to a nitroglycerin drip. Lab Data: Labs: Lab Results 09/05/19 09/05/19 09/05/19 Range/Units 14:28 14:29 14:29 WBC 8.9 (4.0-10.0) 10^3/ uL RBC 3.56 L (4.1-5.3) 10^6/u L Hgb 10.6 L (11.5-15.3) g/dL Hct 34.3 L (37.0-47.0) % MCV 96.3 (81-99) fL MCH 29.8 (28.0-34.0) pg MCHC 30.9 (30.0-36.0) g/dL RDW 15.9 H (12.1-15.1) % Plt Count 281 (130-400) 10^3/c mm MPV 10.2 (7.4-10.4) fL Neut % (Auto) 73.6 % Lymph % (Auto) 16.3 % Stanton % (Auto) 6.6 % Eos % (Auto) 2.0 % Baso % (Auto) 0.8 % Neut # (Auto) 6.5 (1.8-7.7) 10^3/u L Lymph # (Auto) 1.4 (0.8-4.8) 10^3/u L Stanton # (Auto) 0.6 (0.2-0.9) 10^3/u L Eos # (Auto) 0.2 (0.0-0.8) 10^3/u L Baso # (Auto) 0.1 (0.0-0.1) 10^3/u L Nucleated RBC % (a uto) 0 % Nucleated RBCs # 0.0 /100WBC Sodium 139 (136-145) mmol/L Potassium 3.9 (3.5-5.1) mmol/L Chloride 100 (98-107) mmol/L Carbon Dioxide 26 (22-29) mmol/L Anion Gap 16.9 (5-19) BUN 27 H (8-23) mg/dL Creatinine 1.4 H (0.5-0.9) mg/dL GFR Calculation 37.3 L (90-130) mL/min Glucose 129 H (65-115) mg/dL Calculated Osmolal ity 287 (285-295) mOsm/k g Calcium 9.7 (8.5-10.5) mg/dL Total Bilirubin 1.2 (0.15-1.2) mg/dL AST 13 (0-32) U/L ALT 10 (0-33) U/L Alkaline Phosphata se 91 (35-105) IU/L Troponin T Baselin e (0-10) ng/mL NT-Pro-B Natriuret Pep 8389 H (0-125) pg/mL Total Protein 7.7 (6.6-8.7) g/dL Albumin 3.8 (3.5-5.2) g/dL Globulin 3.9 (1.3-4.6) g/dL Influenza Type A A g Negative (Negative) POC Influenza B Ag Negative (Negative) 09/05/19 Range/Units 17:50 WBC (4.0-10.0) 10^3/ uL RBC (4.1-5.3) 10^6/u L Hgb (11.5-15.3) g/dL Hct (37.0-47.0) % MCV (81-99) fL MCH (28.0-34.0) pg MCHC (30.0-36.0) g/dL RDW (12.1-15.1) % Plt Count (130-400) 10^3/c mm MPV (7.4-10.4) fL Neut % (Auto) % Lymph % (Auto) % Stanton % (Auto) % Eos % (Auto) % Baso % (Auto) % Neut # (Auto) (1.8-7.7) 10^3/u L Lymph # (Auto) (0.8-4.8) 10^3/u L Stanton # (Auto) (0.2-0.9) 10^3/u L Eos # (Auto) (0.0-0.8) 10^3/u L Baso # (Auto) (0.0-0.1) 10^3/u L Nucleated RBC % (a uto) % Nucleated RBCs # /100WBC Sodium (136-145) mmol/L Potassium (3.5-5.1) mmol/L Chloride (98-107) mmol/L Carbon Dioxide (22-29) mmol/L Anion Gap (5-19) BUN (8-23) mg/dL Creatinine (0.5-0.9) mg/dL GFR Calculation (90-130) mL/min Glucose (65-115) mg/dL Calculated Osmolal ity (285-295) mOsm/k g Calcium (8.5-10.5) mg/dL Total Bilirubin (0.15-1.2) mg/dL AST (0-32) U/L ALT (0-33) U/L Alkaline Phosphata se (35-105) IU/L Troponin T Baselin e 478 H* (0-10) ng/mL NT-Pro-B Natriuret Pep (0-125) pg/mL Total Protein (6.6-8.7) g/dL Albumin (3.5-5.2) g/dL Globulin (1.3-4.6) g/dL Influenza Type A A g (Negative) POC Influenza B Ag (Negative) Imaging Data^: CXR: My impression: Cardiomegaly with moderate to severe pulmonary vascular congestion. EKG Data^: EKG 1: Attestation: I personally reviewed and interpreted this EKG as follows: EKG interpretation date: 09/05/19 Interpretation: EKG performed at 13:50 -atrial fibrillation with a ventricular rate of 58 beats a minute, ST segment elevation with T wave inversions 2, 3, aVF, V4 through V6. New and changed from old EKG. Computer generated interpretation: Chest X-Ray 09/05/19 14:12 IMPRESSION: Interstitial fibrosis. EKG 2: Attestation: I personally reviewed and interpreted this EKG as follows: Interpretation: EKG performed at 17:54 -atrial fibrillation with ventricular rate of 51 beats a minute, ST segment elevation in 2, 3, aVF, V4 through V6. Computer generated interpretation: Chest X-Ray 09/05/19 14:12 IMPRESSION: Interstitial fibrosis. EKG 3: Attestation: I personally reviewed and interpreted this EKG as follows: EKG interpretation date: 09/05/19 EKG interpretation time: 18:52 Interpretation: Atrial fibrillation at 62 beats a minute, ST elevation 2, 3, aVF, V4 through V6. Computer generated interpretation: Chest X-Ray 09/05/19 14:12 IMPRESSION: Interstitial fibrosis. Discharge Plan Discharge Patient Disposition: Admitted As Inpatient Clinical Impression: ACS (acute coronary syndrome) Condition: Stable Referrals: Betsy Nuno DO [Primary Care Provider] - Sign Out Sign Out Data: Patient Sign Out occurred on 09/05/19 at 18:16. Patient's care was discussed, and care was transferred from to [facility]. Coding Level of Care Code ED Consulting Software Engineer for Chg Fwd Exam Comprehensive The documentation recorded by the Cricket mcdermott Kialy, accurately reflects the service I personally performed and the decisions made by Luis Felipe jara Donald P, DO Sep 05, 2019 13:34
--- NOTE | 2019-09-05 14:12 | XR_ITS ---
WS: [id number] XR chest 1V portable [id number] REASON FOR EXAM: chest pain FINDINGS: Reticular patterns again noted throughout both lung rodrigez and review the previous exam sug gests this is interstitial disease. [employer] the heart is borderline enlarged similar to previous exam. There is no pneumonia thorax seen. The hilum and apices are normal. XR/XR chest 1V portable [id number] IMPRESSION: Interstitial fibrosis.
[2019-09-05] MEDS: morphine 4 mg/mL SDV 1 mL 2 MG IVP ×2 (14:21→18:26)
[2019-09-05 14:36] LABS: Basophils # 0.1 10^3/uL (0.0-0.1); Basophils % 0.8 %; Eosinophils # 0.2 10^3/uL (0.0-0.8); Hematocrit 34.3 % (37.0-47.0); Hemoglobin 10.6 g/dL (11.5-15.3); Lymphocytes # 1.4 10^3/uL (0.8-4.8); Lymphocytes % 16.3 %; Mean Corpuscular HGB Conc 30.9 g/dL (30.0-36.0); Mean Corpuscular Hemoglobin 29.8 pg (28.0-34.0); Mean Corpuscular Volume 96.3 fL (81-99); Mean Platelet Volume 10.2 fL (7.4-10.4); Monocytes # 0.6 10^3/uL (0.2-0.9); Monocytes % 6.6 %; Neutrophils # 6.5 10^3/uL (1.8-7.7); Neutrophils % 73.6 %; Nucleated Red Blood Cells % 0 %; Platelet Count 281 10^3/cmm (130-400); Red Blood Count 3.56 10^6/uL (4.1-5.3); Red Cell Distribution Width 15.9 % (12.1-15.1); White Blood Count 8.9 10^3/uL (4.0-10.0)
[2019-09-05 14:55] LABS: Influenza A by IFA Negative (Negative); Influenza B by IFA Negative (Negative)
--- NOTE | 2019-09-05 14:58 | ECG_ITS ---
Measurements Intervals [place] Rate: 58 P: FL: 0 QRS: 35 QRSD: 144 T: -49 QT: 477 QTc: 470 ATRIAL FIBRILLATION WITH SLOW VENTRICULAR RESPONSE RIGHT BUNDLE BRANCH BLOCK [120+ ms QRS DURATION, UPRIGHT V1, 40+ ms S IN I/aVL/ I/aVL/V4/V5/V6] MODERATE T-WAVE ABNORMALITY, CONSIDER LATERAL ISCHEMIA [-0.1+ mV T WAVE IN I/aV I/aVL/V5/V6]. Poor R wave progression MODERATE T-WAVE ABNORMALITY, CONSIDER INFERIOR ISCHEMIA [-0.1+ mV T WAVE IN II/ II/aVF].Possible old inferior wall [place] INTERPRETATION BASED ON A DEFAULT AGE OF 40 YEARS Compared to ECG 08/21/2019 09:41:08 Myocardial infarct finding now present T-wave abnormality now present Possible ischemia now present Electronically Signed On 09-05-2019 20:32:35 CDT by Emily Rome M.D. [email or web address]
[2019-09-05 15:01] LABS: Alanine Aminotransferase 10 U/L (0-33); Albumin Level 3.8 g/dL (3.5-5.2); Alkaline Phosphatase 91 IU/L (35-105); Anion Gap 16.9 (5-19); Aspartate Amino Transferase 13 U/L (0-32); Blood Urea Nitrogen 27 mg/dL (8-23); Calcium 9.7 mg/dL (8.5-10.5); Carbon Dioxide 26 mmol/L (22-29); Chloride 100 mmol/L (98-107); Globulin 3.9 g/dL (1.3-4.6); Glomerular Filtration Rate 37.3 mL/min (90-130); Glucose 129 mg/dL (65-115); NT Pro B Type Natriuretic Pept 8389 pg/mL (0-125); Osmolality Calculated 287 mOsm/kg (285-295); Potassium 3.9 mmol/L (3.5-5.1); Sodium 139 mmol/L (136-145); Total Bilirubin 1.2 mg/dL (0.15-1.2); Total Protein 7.7 g/dL (6.6-8.7)
--- NOTE | 2019-09-05 17:35 | ECG_ITS ---
Measurements Intervals [facility] Rate: 51 P: [place]: 0 QRS: 43 QRSD: 138 T: -60 QT: 459 QTc: 425 ATRIAL FIBRILLATION WITH SLOW VENTRICULAR RESPONSE RIGHT BUNDLE BRANCH BLOCK [120+ ms QRS DURATION, UPRIGHT V1, 40+ ms S IN I/aV I/aVL/V4/V5/V6] MODERATE T-WAVE ABNORMALITY, CONSIDER LATERAL ISCHEMIA [-0.1+ mV T WAVE IN I/a I/aVL/V5/V6] MODERATE T-WAVE ABNORMALITY, CONSIDER INFERIOR ISCHEMIA [-0.1+ mV T WAVE IN II II/aVF] Compared to ECG 08/21/2019 09:41:08 T-wave abnormality now present Possible ischemia now present Electronically Signed On 09-05-2019 20:35:47 CDT by Emily Rome M.D. [email or web address]
[2019-09-05 18:27] LABS: Troponin(5th) Baseline 478 ng/mL (0-10)
[2019-09-05] MEDS: aspirin 325 mg Tablet PO (18:37)
[2019-09-05] MEDS: nitroglycerin 0.4 mg sublingual Tablet SUBLINGUAL (18:37)
[2019-09-05] MEDS: clopidogrel 300 mg Tablet 600 MG PO (18:49)
[2019-09-05] MEDS: nitroglycerin drip 50 MG/250 ML PREMIX IV (19:08)
--- NOTE | 2019-09-05 19:09 | PC.NURSE ---
Introduced self to patient and initiated vital signs. Patient presents A&O x 4. NAD, ABCs intact, MAEW and agreeable to treatment. Respirations are even and unlabored. Pt states that the chief complaint for the ER visit today is due to left side chest pain that presented around 1000. IV observed in right forearm (24awg) and left AC (18awg). Both flushed for patency. Pt denies any vision disturbances or lightheadedness. Bed left in lowest position in semi-fowlers with side rails up.Reassured patient of needs and will continue to monitor.
--- NOTE | 2019-09-05 19:10 | PC.NURSE ---
Pads placed on patient and Zoll behind head of bed. Per MD, Heparin is being held due to pt on Eloquist.
--- NOTE | 2019-09-05 19:55 | P.CONIM_ITS ---
Providers/Reason For Consult Consulting Physican/Specialty*: Interventional cardiology Reason for Consult*: Acute coronary syndrome Primary Care Provider: Betsy Nuno DO History of Present Illness History of Present Illness Fantasma Montalvo is a 68 year old female Past medical history significant for history of atrial fibrillation on apixaban, Chronic kidney disease stage 3-4, history of coronary artery disease, history of old inferolateral myocardial infarction on the basis of stress test recently discharge from the hospital when treated for CHF, Atypical chest pain, urinary tract infection and renal failure. Stress test was suggestive of small area of ischemia in the inferolateral wall of the left ventricle. Patient has history of preserved left ventricular ejection fraction. According to her since yesterday she was having some chest pressure this morning she also complained of left arm pressure. When she become more short of breath she decided to come to the emergency room this morning morning. I was called around 6:[address] elevation GA as her troponin T Fifth generation back on 400. When I saw the patient she was chest pain-free she has right bundle branch block with inferolateral T-wave inversions. On the EKG at [address] elevation in the lateral leads when compared to the prior EKG not very significant however T ventricular inversion is more pronounced. Most likely patient has completed infarction. She already has inferolateral nonviable myocardial wall as per perfusion scan on August 19. Her creatinine is 1.4 she appeared to be volume Overloaded. Since she is chest pain-free and because of the fact she has subtle EKG ST elevation changes which has been resolved in the inferolateral region which is region of non-viability I would like to treat her medically at this point for completed infarct. In case of on instabillity Such as recurrence of continue chest pain, trending of very high cardiac markers or arrhythmia we can always take her to the [facility]. Review of Systems General: Reports: 10 or more systems reviewed and unremarkable except in HPI and below Const: Denies: fever, chills, body aches, change in appetite or change in weight Card: Reports: chest pain and shortness of breath on exertion Resp: Reports: shortness of breath GI: Denies: abdominal pain, nausea or vomiting : Denies: flank pain Musc: Denies: joint warmth Skin/Breast: Denies: rash or itching Neuro: Denies: headache or numbness in extremities All/Imm: Denies: acute wheezing Meds/Allergies Home Medications and Allergies Home Medications Medication Instructions Recorded Confirmed Type bumetanide 2 mg PO DAILY 08/20/19 09/05/19 History fentanyl 50 mcg TOPICAL Q72H 08/20/19 09/05/19 History gabapentin 100 mg PO BEDTIME 08/20/19 09/05/19 History glipizide 10 mg PO DAILY 08/20/19 09/05/19 History insulin aspart U-100 [Novolog See Protocol SUBCUT AC 08/20/19 09/05/19 History Flexpen U-100 Insulin] levothyroxine 50 mcg PO DAILY 08/20/19 09/05/19 History metoprolol tartrate 50 mg PO BID 08/20/19 09/05/19 History potassium chloride 10 meq PO DAILY 08/20/19 09/05/19 History rosuvastatin 20 mg PO BEDTIME 08/20/19 09/05/19 History sertraline 25 mg PO DAILY 08/20/19 09/05/19 History apixaban [Eliquis] 2.5 mg PO BID #30 tab 08/23/19 09/05/19 Rx aspirin 81 mg PO DAILY #30 tab 08/23/19 09/05/19 Rx isosorbide mononitrate 30 mg PO BID #0 tab 08/23/19 09/05/19 Rx insulin glargine [Lantus Solostar 12 unit SUBCUT DAILY 09/05/19 09/05/19 History U-100 Insulin] nifedipine 30 mg PO DAILY 09/05/19 09/05/19 History ondansetron HCl [Zofran] 4 mg PO BID PRN 09/05/19 09/05/19 History Allergies Allergy/AdvReac Type Severity Reaction Status Date / Time duloxetine [From Cymbalta] Allergy Unknown Verified 09/05/19 13:48 prochlorperazine Allergy ALGY-Anaphy Verified 09/05/19 13:45 [From Compazine] laxis sucralfate [From Carafate] Allergy Unknown Verified 09/05/19 13:48 trazodone Allergy Unknown Verified 09/05/19 13:48 zaleplon [From Sonata] Allergy Unknown Verified 09/05/19 13:48 Current Medications Current Medications Generic Name Dose Route Start Last Admin Trade Name Freq PRN Reason Stop Dose Admin Nitroglycerin/Dextrose 50 mg in 250 mls @ 0 mls/hr 09/05/19 19:00 09/05/19 19:08 Nitroglycerin Drip IV 10 mcg/min .Q0M PINA 3 mls/hr Administration Protocol Per Protocol PFSH Acute PFSH: Medical History Adverse drug reaction Angina pectoris Aortic stenosis Atrial fibrillation by electrocardiogram CAD (coronary artery disease) Cellulitis CHF (congestive heart failure) Dental caries Diabetes DJD (degenerative joint disease) Fibula fracture Gastroenteritis GERD (gastroesophageal reflux disease) HTN (hypertension) Hypercholesterolemia Hyperlipidemia Radius fracture Renal failure Rhabdomyolysis Tibia fracture UTI (urinary tract infection) Vertigo Surgical History History of cardiac catheterization History of hernia repair History of hip surgery History of hysterectomy History of knee surgery History of sinus surgery History of tonsillectomy History of umbilical hernia repair Family History Other Diabetes Stroke Denies family history of CAD (coronary artery disease) Clotting disorder Dementia Chronic kidney disease (CKD) Social History Smoking and tobacco status: never smoked Quit status (tobacco): has quit using tobacco Former quit date comment: Smoking in her 20s Alcohol intake: never Caregiver/support person: Yes (Home health services Friday) Lives independently: Yes Housing: House Vitals/I&O/Wt Last Vital Signs Temp 98.1 F 09/05/19 13:42 Pulse 61 09/05/19 19:40 Resp 21 H 09/05/19 19:40 BP 140/75 09/05/19 19:40 Pulse Ox 98 09/05/19 19:40 Weight last 48 hrs Weight 180 lb Physical Exam Const: COMMON NORMALS: oriented x3; apparent distress EXAM LIMITATIONS: no altered mental status and no behavioral limitations GENERAL APPEARANCE: cooperative and comfortable ORIENTATION/CONSCIOUSNESS: Yes awake, Yes oriented to person, Yes oriented to place and Yes oriented to time HENMT: COMMON NORMALS: normocephalic HEAD & SCALP: normocephalic Resp: EFFORT & INSPECTION: Yes able to speak in complete sentences (Not able to complete sentences, short of breath) and Yes tachypneic AUSCULTATION: rales bilateral Cardio: COMMON NORMALS: regular rate (Irregularly irregular), S1 normal heart sound and S2 normal heart sound RATE: regular rate (Irregularly irregular) HEART SOUNDS: S1 normal, S2 normal and murmur (Subtle systolic murmur) Extremity: OTHER: 1+ bilateral lower extremity edema Neuro: COMMON NORMALS: oriented x3 and CN's II-XII intact bilaterally SENSORIUM/ORIENTATION: Yes oriented to person, Yes oriented to place and Yes oriented to time Psych: COMMON NORMALS: mental status grossly normal Data Micro: Micro: Microbiology 09/05/19 14:29 Blood Culture - Pr eliminary Blood SPECIMEN [facility] 09/05/19 14:20 Blood Culture - Pr eliminary Blood SPECIMEN [facility] Other Data: Other data: ATRIAL FIBRILLATION WITH SLOW VENTRICULAR RESPONSE RIGHT BUNDLE BRANCH BLOCK [120+ ms QRS DURATION, UPRIGHT V1, 40+ ms S IN I/aV I/aVL/V4/V5/V6] MODERATE T-WAVE ABNORMALITY, CONSIDER LATERAL ISCHEMIA [-0.1+ mV T WAVE IN I/a I/aVL/V5/V6] MODERATE T-WAVE ABNORMALITY, CONSIDER INFERIOR ISCHEMIA [-0.1+ mV T WAVE IN II II/aVF] A&P Assessment and plan (1) ACS (acute coronary syndrome): Patient has acute coronary syndrome with non-ST relation GA. Her cardiac markers are trending down. Since she is chest pain-free and baseline creatinine is abnormal for now we will treat him medically with intention to perform angiogram once creatinine is more stable. She appeared to be not volume overload status. Continue beta gato, hold apixaban. She will be started on heparin. Isosorbide mononitrate will be continued if required we will use IV nitroglycerin. Status: Acute Code(s): I24.9 - Acute ischemic heart disease, unspecified (2) Acute kidney injury superimposed on chronic kidney disease: We'll continue to monitor creatinine. I will gently diurese her. Status: Acute Code(s): N17.9 - Acute kidney failure, unspecified; N18.9 - Chronic kidney disease, unspecified (3) Heart failure with preserved ejection fraction: We will start her on IV Bumex. Status: Acute Code(s): I50.30 - Unspecified diastolic (congestive) heart failure (4) Atrial fibrillation by electrocardiogram: Continue metoprolol. We will start her on heparin as per ACS protocol Status: Acute Code(s): I48.91 - Unspecified atrial fibrillation (5) Aortic stenosis: [id number] aortic stenosis. We'll continue to monitor. Status: Acute Code(s): I35.0 - Nonrheumatic aortic (valve) stenosis (6) Diabetes: As per medicine. Status: Acute Code(s): E11.9 - Type 2 diabetes mellitus without complications Coding Level of Care Code Established Pt Acute Territory Account Executive for g Fwd Patient Type Established History Expanded Problem Focused Exam Detailed Medical Decision Making Moderate Complexity Diagnoses ACS (acute coronary syndrome) I24.9 Acute kidney injury superimposed on chronic kidney disease N17.9; N18.9 Heart failure with preserved ejection fraction I50.30 Atrial fibrillation by electrocardiogram I48.91 Aortic stenosis I35.0 Diabetes E11.9
[2019-09-05 20:12] LABS: Troponin 5 2HR 448.5 ng/mL (0-10); Troponin 5 2HR Delta -29.5 ABS# (0-10)
[2019-09-05] MEDS: nitroglycerin 1 gm/inch oint Pkt 1 INCH TOPICAL ×2 (20:47→22:18)
--- NOTE | 2019-09-05 21:24 | PM.HP ---
Providers/Chief Complaint Admitting Physician: Thania Jean Baptiste MD Primary Care Provider: Betsy Nuno DO Chief Complaint: SOB History of Present Illness Fantasma Montalvo is a 68 year old female history significant for history of atrial fibrillation on apixaban, Chronic kidney disease stage 3-4, history of coronary artery disease, history of old inferolateral myocardial infarction on the basis of stress test recently discharge from the hospital when treated for CHF, Atypical chest pain, urinary tract infection and renal failure. Stress test was suggestive of small area of ischemia in the inferolateral wall of the left ventricle. Presented to [facility] this afternoon with c/o chest and left arm pain and worsening shortness of breath. She was found to have Ekg changes concerning for STEMI along with troponin elevation, for which cardiology was consulted. She was additionally noted to have CHF. Since she was chest pain free and had subtle changes in the already non viable inferolateral region, it was decided to treat her medically for now, with plan for cardiac cath if troponins trended up or arrhythmias developed. She is currently on heparin infusion, ASA, iv bumex. Received ASA and Plaavix load. Review of Systems General: Reports: 10 or more systems reviewed and unremarkable except in HPI and below Const: Denies: fever, chills or body aches Eyes: Denies: change in vision, blurry vision or photophobia ENMT: Reports: hoarseness; Denies: throat pain, enlarged tonsils, painful swallowing or nasal congestion Card: Reports: chest pain; Denies: palpitations, irregular heart rhythm, edema, swelling of feet/ankles, lightheadedness, pre-syncope, shortness of breath on exertion or shortness of breath when lying down Resp: Denies: shortness of breath, productive cough, non-productive cough, wheezing, stridor, pain on inspiration, change in phlegm color, coughing up blood or chest congestion GI: Denies: abdominal pain, nausea, vomiting, vomiting blood, coffee grounds in vomit, difficulty swallowing, heartburn/indigestion, diarrhea, constipation, cramping, change in stool character, blood in stool or black tarry stool : Denies: flank pain, difficulty urinating, painful urination, urinary frequency, urinary urgency, urinary hesitancy or blood in urine Musc: Denies: neck pain, back pain, extremity pain, joint swelling, joint warmth or deformity Neuro: Denies: headache, numbness in extremities, weakness in extremities, changes in sensation, difficulty walking, frequent falls, dizziness, vertigo, behavioral changes, slurred speech or seizure-like activity Psych: Denies: anxiety, depression, suicidal ideation or homicidal ideation Endo: Denies: excessive urination, excessive thirst, tired all the time, cold intolerance or hot flashes Francois/Lymph: Denies: easy bruising or easy bleeding Medications/Allergies Home Medications Medication Instructions Recorded Confirmed Last Taken Type insulin glargine [Lantus Solostar 12 unit SUBCUT DAILY 09/05/19 09/05/19 09/04/19 History U-100 Insulin] nifedipine 30 mg PO DAILY 09/05/19 09/05/19 09/05/19 History ondansetron HCl [Zofran] 4 mg PO BID PRN 09/05/19 09/05/19 Unknown History Allergies Allergy/AdvReac Type Severity Reaction Status Date / Time duloxetine [From Cymbalta] Allergy Unknown Verified 09/05/19 13:48 prochlorperazine Allergy ALGY-Anaphy Verified 09/05/19 13:45 [From Compazine] laxis sucralfate [From Carafate] Allergy Unknown Verified 09/05/19 13:48 trazodone Allergy Unknown Verified 09/05/19 13:48 zaleplon [From Sonata] Allergy Unknown Verified 09/05/19 13:48 PFSH Acute PFSH: Medical History Adverse drug reaction Angina pectoris Aortic stenosis Atrial fibrillation by electrocardiogram CAD (coronary artery disease) Cellulitis CHF (congestive heart failure) Dental caries Diabetes DJD (degenerative joint disease) Fibula fracture Gastroenteritis GERD (gastroesophageal reflux disease) HTN (hypertension) Hypercholesterolemia Hyperlipidemia Radius fracture Renal failure Rhabdomyolysis Tibia fracture UTI (urinary tract infection) Vertigo Surgical History History of cardiac catheterization History of hernia repair History of hip surgery History of hysterectomy History of knee surgery History of sinus surgery History of tonsillectomy History of umbilical hernia repair Family History Other Diabetes Stroke Denies family history of CAD (coronary artery disease) Clotting disorder Dementia Chronic kidney disease (CKD) Social History Smoking and tobacco status: never smoked Quit status (tobacco): has quit using tobacco Former quit date comment: Smoking in her 20s Alcohol intake: never Caregiver/support person: Yes (Home health services Friday) Lives independently: Yes Housing: House Vitals/I&O/Wt Last Vital Signs Temp 98.3 F 09/05/19 21:06 Pulse 70 09/05/19 21:06 Resp 22 H 09/05/19 21:06 BP 150/84 09/05/19 21:06 Pulse Ox 99 09/05/19 21:06 Weight last 48 hrs Weight 81.647 kg Physical Exam Narrative: EXAM NARRATIVE: GEN: Awake, alert and oriented, no acute distress CVS: S1S2 N, systolic murmur+ RS: B/L infraaxillary crackles Abd: Soft, nt/nd , bs+ REPAIRER CONTROLLER TESTER: no focal neuro deficits EXT: 1+ pitting edema B/L Data : 09/05/19 14:29 09/05/19 14:29 Micro: Microbiology 09/05/19 14:29 Blood Culture - Preliminary Blood SPECIMEN COLLECTED 09/05/19 14:20 Blood Culture - Preliminary Blood SPECIMEN COLLECTED A&P Assessment and plan (1) ACS (acute coronary syndrome): Status: Acute Code(s): I24.9 - Acute ischemic heart disease, unspecified (2) Chest pain: Status: Acute Code(s): R07.9 - Chest pain, unspecified (3) Acute kidney injury superimposed on chronic kidney disease: Status: Acute Code(s): N17.9 - Acute kidney failure, unspecified; N18.9 - Chronic kidney disease, unspecified (4) Grade II diastolic dysfunction: Status: Acute Code(s): I51.9 - Heart disease, unspecified (5) Heart failure with preserved ejection fraction: Status: Acute Code(s): I50.30 - Unspecified diastolic (congestive) heart failure (6) Diabetes: Status: Acute Code(s): E11.9 - Type 2 diabetes mellitus without complications (7) Aortic stenosis: Status: Acute Code(s): I35.0 - Nonrheumatic aortic (valve) stenosis (8) Atrial fibrillation by electrocardiogram: Status: Acute Code(s): I48.91 - Unspecified atrial fibrillation Additional A&P Information Admit to [facility]SU in view of AMI 1. Acute HI Likely to be completed infarction She is currently chest pain free with downtrending troponins Currently Eliquis has been discontinued and she is on heparin infusion Continue ASA, atorvastatin, lopressor 2. Acute on chronic diastolic CHF Currently on Bumex 1mg iv q12h Continue Imdur 30mg po BID 3. DM: Currently on insulin glargine 12U + sliding scale 4. Hypothyroidism: continue levothyroxine 5. Cr 1.4, improving over previous admission Dvt ppx: Heparin infusion Full code Attestations Medical Necessity Statement*: anticipate > 2MN admission for management of AMI Coding Level of Care Code Acute Clinic Office Manager for Chg Fwd Diagnoses ACS (acute coronary syndrome) I24.9 Chest pain R07.9 Acute kidney injury superimposed on chronic kidney disease N17.9; N18.9 Grade II diastolic dysfunction I51.9 Heart failure with preserved ejection fraction I50.30 Diabetes E11.9 Aortic stenosis I35.0 Atrial fibrillation by electrocardiogram I48.91
[2019-09-05 21:25] LABS: Glucose Point of Care 154 mg/dL (70-110)
[2019-09-05] MEDS: bumetanide 0.25 mg/mL SDV 10 mL 1 MG IV (22:17)
[2019-09-05] MEDS: heparin drip 25,000 UNIT/500 ML PREMIX 19.6 UNIT IV (22:17)
[2019-09-05] MEDS: fentaNYL 50 mcg Patch 1 PATCH TRANSDERMA (22:17)
[2019-09-05] MEDS: atorvastatin 40 mg Tablet 80 MG PO (22:18)
[2019-09-05] MEDS: gabapentin 100 mg Capsule PO (22:19)
--- NOTE | 2019-09-05 23:35 | ECG_ITS ---
Measurements Intervals [place] Rate: 62 P: NV: 0 QRS: 30 QRSD: 138 T: -52 QT: 464 QTc: 473 ATRIAL FIBRILLATION INDETERMINATE AXIS RIGHT BUNDLE BRANCH BLOCK [120+ ms QRS DURATION, UPRIGHT V1, 40+ ms S IN I/aVL/ I/aVL/V4/V5/V6] POSSIBLE ANTERIOR MYOCARDIAL INFARCTION , OF INDETERMINATE AGE [30 ms Q WAVE IN V3 V3/V4, OR R < 0.2 mV IN V4] MODERATE T-WAVE ABNORMALITY, CONSIDER LATERAL ISCHEMIA [-0.1+ mV T WAVE IN I/aV I/aVL/V5/V6] Compared to ECG 09/05/2019 17:54:00Indeterminate axis now present Myocardial infarct finding now presentT-wave abnormality still present Possible ischemia still present Baseline artifact, need to repeat Electronically Signed On 09-06-2019 19:26:39 CDT by Emily Rome M.D. [id number]
[2019-09-06] VITALS (73 sets, daily range): BP systolic 89–153; BP diastolic 48–88; PULSE 52–72; RESP 11–30; TEMP 36.3–36.7; O2SAT 95–100
[2019-09-06] MEDS: morphine 4 mg/mL SDV 1 mL IVP (00:24)
--- NOTE | 2019-09-06 02:17 | ECG_ITS ---
Measurements Intervals [place] Rate: 57 P: PA: 0 QRS: 26 QRSD: 142 T: -56 QT: 496 QTc: 484 ATRIAL FIBRILLATION WITH SLOW VENTRICULAR RESPONSE RIGHT BUNDLE BRANCH BLOCK [120+ ms QRS DURATION, UPRIGHT V1, 40+ ms S IN I/aVL/V4/V5/V6] MODERATE T-WAVE ABNORMALITY, CONSIDER INFERIOR ISCHEMIA [-0.1+ mV T WAVE IN II/aVF] Compared to ECG 09/05/2019 17:54:00 No significant changes Electronically Signed On 09-06-2019 19:27:01 CDT by Emily Rome M.D. [id number]
[2019-09-06 04:28] LABS: Basophils # 0.1 10^3/uL (0.0-0.1); Basophils % 0.7 %; Eosinophils # 0.2 10^3/uL (0.0-0.8); Eosinophils % 2.4 %; Hematocrit 29.1 % (37.0-47.0); Hemoglobin 9.1 g/dL (11.5-15.3); Lymphocytes # 1.3 10^3/uL (0.8-4.8); Mean Corpuscular HGB Conc 31.3 g/dL (30.0-36.0); Mean Corpuscular Hemoglobin 30.2 pg (28.0-34.0); Mean Corpuscular Volume 96.7 fL (81-99); Mean Platelet Volume 10.5 fL (7.4-10.4); Monocytes # 0.6 10^3/uL (0.2-0.9); Monocytes % 8.3 %; Neutrophils # 5.2 10^3/uL (1.8-7.7); Neutrophils % 70.2 %; Nucleated Red Blood Cells % 0 %; Platelet Count 252 10^3/cmm (130-400); Red Blood Count 3.01 10^6/uL (4.1-5.3); Red Cell Distribution Width 15.9 % (12.1-15.1); White Blood Count 7.4 10^3/uL (4.0-10.0)
[2019-09-06] MEDS: nitroglycerin 1 gm/inch oint Pkt 1 INCH TOPICAL ×2 (04:30→19:29)
[2019-09-06 04:38] LABS: Partial Thromboplastin Time 67.1 SECONDS (23.9-36.7)
[2019-09-06 04:45] LABS: Anion Gap 11.5 (5-19); Blood Urea Nitrogen 24 mg/dL (8-23); Calcium 9.2 mg/dL (8.5-10.5); Carbon Dioxide 30 mmol/L (22-29); Chloride 98 mmol/L (98-107); Glomerular Filtration Rate 44.5 mL/min (90-130); Glucose 207 mg/dL (65-115); Osmolality Calculated 285 mOsm/kg (285-295); Potassium 3.5 mmol/L (3.5-5.1); Sodium 136 mmol/L (136-145)
[2019-09-06 06:47] LABS: Glucose Point of Care 169 mg/dL (70-110)
--- NOTE | 2019-09-06 07:17 | PC.NURSE ---
DOCTOR MARIA PUT IN ORDERS FOR HEPARIN DRIP TO BE RUN AT 19.6 ML/HR. WHEN PT ARRIVED ON OUR FLOOR, HER WEIGHT WAS SIGNIFICANTLY DIFFERENT THAN THE WEIGHT THAT SHE HAD STATED DOWN IN THE ER, SO NURSE CALLED DR SIFUENTES TO CLARIFY THE CORRECT WEIGHT AND IF HE WANTED THE DRIP TO RUN AT THE SAME RATE. HE SAID TO KEEP IT AT THE SAME RATE, AND DO A PTT IN 6 HOURS AND THEN FOLLOW THE HEPARIN DRIP PROTOCOL. NURSE KEPT THE RATE AND PUT IN AN ORDER FOR A PTT FOR 6 HOURS LATER, THEN FOLLOWED HEPARIN DRIP PROTOCOL.
[2019-09-06] MEDS: bumetanide 0.25 mg/mL SDV 10 mL 1 MG IV (07:47)
[2019-09-06] MEDS: metoprolol tartrate 50 mg Tablet 12.5 MG PO (08:31)
[2019-09-06] MEDS: clopidogrel 75 mg Tablet PO (08:31)
[2019-09-06] MEDS: aspirin 81 mg EC Tablet PO (08:34)
--- NOTE | 2019-09-06 08:40 | PM.PN ---
Subjective Subjective: Interval history: Chart reviewed, on heparin drip, urine output of 1450 mL overnight, VSS. Spoke briefly with Dr. Estrada, will take patient to research lab assistant now. Noted bradycardia so will hold BB. Patient seen in [facility] where she was transferred following coronary angiogram, right radial approach and right femoral approach were both used; had stent placement. She is quite groggy following the procedure. Having some difficulty voiding so will place José catheter. Medications: Reviewed: Yes Medication Review Details: Active Medications Generic Name Dose Route Start Last Admin Trade Name Freq PRN Reason Stop Dose Admin Aspirin 81 mg 09/06/19 09:00 09/06/19 08:34 Aspirin Ec PO 81 mg DAILY PINA Administration Atorvastatin Calci um 80 mg 09/05/19 21:00 09/05/19 22:18 Lipitor PO 80 mg BEDTIME PINA Administration Bumetanide 1 mg 09/05/19 20:45 09/06/19 07:47 Bumex IV 1 mg Q12H PINA Administration Dextrose 25 ml 09/05/19 20:40 D50w IVP ONCE PRN hypoglycemia prot ocol Protocol Dextrose 50 ml 09/05/19 20:40 D50w IVP PRN PRN hypoglycemia prot ocol Protocol Fentanyl 1 patch 09/05/19 20:45 09/05/19 22:17 Duragesic 50 Mcg Patch TRANSDERMA 1 patch Q72H PINA Administration Gabapentin 100 mg 09/05/19 21:00 09/05/19 22:19 Neurontin PO 100 mg BEDTIME PINA Administration Glucagon 1 mg 09/05/19 20:40 Glucagen IM ONCE PRN Adult Acute Hypog lycemia Prot. Protocol Heparin Sodium/Sod ium Chloride 25,000 unit in 50 0 mls @ 19.595 mls /hr 09/05/19 20:45 09/05/19 22:17 Heparin Drip IV 12 unit/kg/hr .Q24H PINA 19.6 mls/hr Administration 12 UNIT/KG/HR Dextrose 500 mls @ 100 mls /hr 09/05/19 20:40 D5w IV ONCE PRN Adult Acute Hypog lycemia Prot Protocol Insulin Aspart 0 unit 09/06/19 08:00 09/06/19 07:45 Novolog SUBCUT 4 unit TIDWM PINA Administration Protocol Insulin Glargine 12 unit 03/23/20 09:00 Lantus SUBCUT DAILY [facility] Isosorbide Mononit rate 30 mg 09/06/19 09:00 09/06/19 08:03 Imdur PO Not Given BID [facility] Levothyroxine Sodi um 50 mcg 09/06/19 09:00 09/06/19 08:03 Synthroid PO Not Given DAILY [facility] Metoprolol Tartrat e 12.5 mg 09/06/19 09:00 09/06/19 08:31 Lopressor PO 12.5 mg BID PINA Administration Morphine Sulfate 4 mg 09/05/19 20:37 09/06/19 00:24 Morphine IVP 4 mg Q4H PRN Administration SEVERE PAIN Nitroglycerin 1 inch 09/05/19 20:45 09/06/19 04:30 Nitro-Bid TOPICAL 1 inch Q6H PINA Administration Ondansetron HCl 4 mg 09/05/19 20:37 Zofran IVP Q6H PRN NAUSEA AND VOMITI NG Ondansetron HCl 4 mg 09/05/19 20:37 Zofran PO BID PRN Nausea Potassium Chloride 10 meq 09/06/19 09:00 09/06/19 08:03 Klor-Con 10 PO Not Given DAILY [facility] Sertraline HCl 25 mg 09/06/19 09:00 09/06/19 08:04 Zoloft PO Not Given DAILY [facility] duloxetine [From Cymbalta] Allergy (Verified 09/05/19 13:48) Unknown prochlorperazine [From Compazine] Allergy (Verified 09/05/19 13:45) ALGY-Anaphylaxis sucralfate [From Carafate] Allergy (Verified 09/05/19 13:48) Unknown trazodone Allergy (Verified 09/05/19 13:48) Unknown zaleplon [From Sonata] Allergy (Verified 09/05/19 13:48) Unknown Vitals/I&O/Wt Last Vital Signs Temp 97.3 F L 09/06/19 07:00 Pulse 53 L 09/06/19 07:00 Resp 18 09/06/19 07:00 BP 129/74 09/06/19 07:00 Pulse Ox 100 09/06/19 07:00 09/05/19 09/06/19 09/06/19 22:59 06:59 14:59 Output Total 300 / 300 1150 / 1450 400 / 400 Balance -300 / -300 -1150 / -1450 -400 / -400 Weight last 48 hrs Weight 97.885 kg Weight 81.647 kg Physical Exam Const: COMMON NORMALS: no apparent distress GENERAL APPEARANCE: cooperative and comfortable NUTRITIONAL APPEARANCE: obese morbidly obese OTHER: -Groggy following cath HENMT: COMMON NORMALS: normocephalic, head/scalp atraumatic, hearing grossly normal bilaterally and moist oral mucous membranes HEAD & SCALP: normocephalic and atraumatic Eye: COMMON NORMALS: PERRL, EOMs intact bilaterally and conjunctivae normal CONJUNCTIVA: Yes conjunctivae normal PUPIL: Yes PERRL Neck/C-Spine: COMMON NORMALS: full ROM GENERAL: Yes normal visual inspection and Yes trachea midline Resp: COMMON NORMALS: normal respiratory effort, no retractions, no use of accessory muscles and clear to auscultation bilaterally EFFORT & INSPECTION: Yes able to speak in complete sentences, Yes symmetric chest movement and No tachypneic AUSCULTATION: clear to auscultation bilaterally Cardio: COMMON NORMALS: regular rhythm, S1 normal heart sound, S2 normal heart sound and no murmurs RATE: bradycardic RHYTHM: regular rhythm HEART SOUNDS: S1 normal and S2 normal GI: COMMON NORMALS: normal to inspection, nondistended, normoactive bowel sounds, soft to palpation and non-tender INSPECTION: Yes central obesity PALPATION: Yes soft Extremity: COMMON NORMALS: normal to inspection, full ROM and no clubbing, cyanosis or edema; negative for no pedal edema NARRATIVE EXTREMITY EXAM: -TR band in place (R wrist), sheath in place R femoral Neuro: COMMON NORMALS: moves all extremities, no focal motor deficits and no sensory deficits noted Psych: COMMON NORMALS: mental status grossly normal, thought process normal, cooperative, affect normal and speech normal SPEECH: Yes normal speech THOUGHT PROCESS: normal thought process Skin: COMMON NORMALS: no rashes or lesions noted, no jaundice, no petechiae and no mottling GENERAL SKIN EXAM: no rashes or lesions noted Data : 09/06/19 04:21 09/06/19 04:21 Micro: Microbiology 09/05/19 14:29 Blood Culture - Preliminary Blood SPECIMEN COLLECTED 09/05/19 14:20 Blood Culture - Preliminary Blood SPECIMEN COLLECTED A&P Assessment and plan (1) ACS (acute coronary syndrome): -Presented with complaints of chest pain and shortness of breath, STEMI alert called en route to the ER -Recent admission for chest pain, had stress testing done with noted small sathya-infarct ischemia in RCA/circumflex territory, large size perfusion abnormality of moderate to severe severity of the entire inferior, mild to apical inferolateral, apical lateral and apical watters with some reversibility in mid inferior, mid to apical inferolateral watters; EKG portion was unremarkable -Evaluated by Dr. Estrada, plan for medical management as patient has pre-existing evidence of [place] involving the inferolateral region that is nonviable. Cath this AM with intervention done -Loaded with aspirin and Plavix, on heparin drip; continue nitrates, statin, beta-gato -Troponin trend noted, significant delta change noted -serial ECGs with noted atrial fibrillation, RBBB -Telemetry monitoring -Vital signs stable, continue to monitor -Had echo done during most recent admission showing an ejection fraction of 55%, grade 2 diastolic dysfunction, mild pulmonary hypertension, mild aortic stenosis, mild to moderate mitral regurgitation -has prior hx of CAD Status: Acute Code(s): I24.9 - Acute ischemic heart disease, unspecified (2) Heart failure with preserved ejection fraction: -Noted acute exacerbation of chronic diastolic CHF as evidenced by symptomatic dyspnea, elevated BNP of 8389 -Echo as noted above -On diuresis with IV Bumex -Continue to monitor I's and O's, daily weight, renal function and electrolytes -Currently n.p.o. in case of need for intervention Status: Acute Qualifiers: Heart failure chronicity: acute on chronic Qualified Code(s): I50.33 - Acute on chronic diastolic (congestive) heart failure Code(s): I50.30 - Unspecified diastolic (congestive) heart failure Additional A&P Information -Morbid obesity: BMI-44 kg/m2 -Recently treated for UTI, with Cipro -IDDM type II; check A1c; Accucheks, ISS -HTN; VSS: on oral antihypertensive regimen -Hyperlipidemia; on statin; check lipid panel -SOB: screened for influenza due to SOB, negative; CXR-interstitial fibrosis; supplemental oxygen as needed; continue to monitor respiratory status -Chronic atrial fibrillation, on BB; Eliquis on hold as is on heparin drip; intermittently bradycardic, during last admission was noted to have atrial fibrillation with slow VR -CKD stage 3-4, 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 Time Spent in Patient Care: Greater than 35 minutes (>than 50% of time spent in counselling and/or direct pt care on unit). Coding Level of Care Code Acute Pharmacy Aide for [facility] Fwd Exam Comprehensive Diagnoses ACS (acute coronary syndrome) I24.9 Heart failure with preserved ejection fraction I50.33 Heart failure chronicity: acute on chronic
--- NOTE | 2019-09-06 09:52 | PM.PN ---
Subjective Subjective: Interval history: Patient had mild chest pressure off and on basis in the night. She was bradycardic with A. fib and slow ventricular response heart rate dropped into high 30s. Most of the time she stays into high 40s to low 50s. She is breathing much better. Creatinine has improved to 1.2 Medications: Reviewed: Yes Medication Review Details: Active Medications Generic Name Dose Route Start Last Admin Trade Name Freq PRN Reason Stop Dose Admin Aspirin 81 mg 09/06/19 09:00 09/06/19 08:34 Aspirin Ec PO 81 mg DAILY PINA Administration Atorvastatin Calci um 80 mg 09/05/19 21:00 09/05/19 22:18 Lipitor PO 80 mg BEDTIME PINA Administration Bumetanide 1 mg 09/05/19 20:45 09/06/19 07:47 Bumex IV 1 mg Q12H PINA Administration Dextrose 25 ml 09/05/19 20:40 D50w IVP ONCE PRN hypoglycemia prot ocol Protocol Dextrose 50 ml 09/05/19 20:40 D50w IVP PRN PRN hypoglycemia prot ocol Protocol Fentanyl 1 patch 09/05/19 20:45 09/05/19 22:17 Duragesic 50 Mcg Patch TRANSDERMA 1 patch Q72H PINA Administration Gabapentin 100 mg 09/05/19 21:00 09/05/19 22:19 Neurontin PO 100 mg BEDTIME PINA Administration Glucagon 1 mg 09/05/19 20:40 Glucagen IM ONCE PRN Adult Acute Hypog lycemia Prot. Protocol Heparin Sodium/Sod ium Chloride 25,000 unit in 50 0 mls @ 19.595 mls /hr 09/05/19 20:45 09/05/19 22:17 Heparin Drip IV 12 unit/kg/hr .Q24H PINA 19.6 mls/hr Administration 12 UNIT/KG/HR Dextrose 500 mls @ 100 mls /hr 09/05/19 20:40 D5w IV ONCE PRN Adult Acute Hypog lycemia Prot Protocol Insulin Aspart 0 unit 09/06/19 08:00 09/06/19 07:45 Novolog SUBCUT 4 unit TIDWM PINA Administration Protocol Insulin Glargine 12 unit 09/06/19 09:00 Lantus SUBCUT DAILY [facility] Isosorbide Mononit rate 30 mg 09/06/19 09:00 09/06/19 08:03 Imdur PO Not Given BID [facility] Levothyroxine Sodi um 50 mcg 09/06/19 09:00 09/06/19 08:03 Synthroid PO Not Given DAILY [facility] Metoprolol Tartrat e 12.5 mg 09/06/19 09:00 09/06/19 08:31 Lopressor PO 12.5 mg BID PINA Administration Morphine Sulfate 4 mg 09/05/19 20:37 09/06/19 00:24 Morphine IVP 4 mg Q4H PRN Administration SEVERE PAIN Nitroglycerin 1 inch 09/05/19 20:45 09/06/19 04:30 Nitro-Bid TOPICAL 1 inch Q6H PINA Administration Ondansetron HCl 4 mg 09/05/19 20:37 Zofran IVP Q6H PRN NAUSEA AND VOMITI NG Ondansetron HCl 4 mg 09/05/19 20:37 Zofran PO BID PRN Nausea Potassium Chloride 10 meq 09/06/19 09:00 09/06/19 08:03 Klor-Con 10 PO Not Given DAILY [facility] Sertraline HCl 25 mg 09/06/19 09:00 09/06/19 08:04 Zoloft PO Not Given DAILY [facility] duloxetine [From Cymbalta] Allergy (Verified 09/05/19 13:48) Unknown prochlorperazine [From Compazine] Allergy (Verified 09/05/19 13:45) ALGY-Anaphylaxis sucralfate [From Carafate] Allergy (Verified 09/05/19 13:48) Unknown trazodone Allergy (Verified 09/05/19 13:48) Unknown zaleplon [From Sonata] Allergy (Verified 09/05/19 13:48) Unknown Vitals/I&O/Wt Last Vital Signs Temp 97.3 F L 09/06/19 07:00 Pulse 53 L 09/06/19 07:00 Resp 18 09/06/19 07:00 BP 129/74 09/06/19 07:00 Pulse Ox 100 09/06/19 07:00 09/05/19 09/06/19 09/06/19 22:59 06:59 14:59 Output Total 300 / 300 1150 / 1450 600 / 600 Balance -300 / -300 -1150 / -1450 -600 / -600 Weight last 48 hrs Weight 215 lb 12.8 oz Weight 180 lb Physical Exam Const: COMMON NORMALS: oriented x3; apparent distress EXAM LIMITATIONS: no altered mental status and no behavioral limitations GENERAL APPEARANCE: cooperative and comfortable ORIENTATION/CONSCIOUSNESS: Yes awake, Yes oriented to person, Yes oriented to place and Yes oriented to time HENMT: COMMON NORMALS: normocephalic HEAD & SCALP: normocephalic Resp: EFFORT & INSPECTION: Yes able to speak in complete sentences (Not able to complete sentences, short of breath) and Yes tachypneic AUSCULTATION: rales bilateral Cardio: COMMON NORMALS: regular rate (Irregularly irregular), S1 normal heart sound and S2 normal heart sound RATE: regular rate (Irregularly irregular) HEART SOUNDS: S1 normal and S2 normal Extremity: OTHER: 1+ bilateral lower extremity edema Neuro: COMMON NORMALS: oriented x3 and CN's II-XII intact bilaterally SENSORIUM/ORIENTATION: Yes oriented to person, Yes oriented to place and Yes oriented to time Psych: COMMON NORMALS: mental status grossly normal Data : 09/06/19 04:21 09/06/19 04:21 Micro: Microbiology 09/05/19 14:29 Blood Culture - Preliminary Blood SPECIMEN COLLECTED 09/05/19 14:20 Blood Culture - Preliminary Blood SPECIMEN COLLECTED A&P Assessment and plan (1) ACS (acute coronary syndrome): Patient continues to have off-and-on chest pressure, troponin has trended down. She is feeling better from breathing perspective and diuresed overnight. She is able to lay flat on the bed. Since her creatinine is at the best it can be today therefore I will proceed with coronary angiogram. I have discussed with the patient in person and her brother Justino in person first yesterday in the ER and now over the phone regarding all the risk benefit and alternative for the procedure including risk of , stroke, contrast-induced nephropathy leading to transient or permanent dialysis, infection, hematoma and arrhythmia. Patient and her brother would like to proceed with coronary angiogram. We will take her to [employer] today. Status: Acute Code(s): I24.9 - Acute ischemic heart disease, unspecified (2) Acute kidney injury superimposed on chronic kidney disease: It has improved. Today creatinine is 1.2. Continue to diurese Status: Acute Code(s): N17.9 - Acute kidney failure, unspecified; N18.9 - Chronic kidney disease, unspecified (3) Heart failure with preserved ejection fraction: Is compensated. Continue Bumex Status: Acute Qualifiers: Heart failure chronicity: acute on chronic Qualified Code(s): I50.33 - Acute on chronic diastolic (congestive) heart failure Code(s): I50.30 - Unspecified diastolic (congestive) heart failure (4) Atrial fibrillation by electrocardiogram: I will hold metoprolol since she is bradycardic. Status: Acute Code(s): I48.91 - Unspecified atrial fibrillation (5) Aortic stenosis: [id number] aortic stenosis. We'll continue to monitor. Status: Acute Code(s): I35.0 - Nonrheumatic aortic (valve) stenosis (6) Diabetes: As per medicine. Status: Acute Code(s): E11.9 - Type 2 diabetes mellitus without complications Attestations Medical Necessity Statement*: I am expecting her stay to cross more than 2 midnights Coding Level of Care Code Established Pt Acute Director Of Emergency Nursing for [facility] Patient Type Established History Detailed Exam Detailed Medical Decision Making Moderate Complexity Diagnoses ACS (acute coronary syndrome) I24.9 Acute kidney injury superimposed on chronic kidney disease N17.9; N18.9 Heart failure with preserved ejection fraction I50.33 Heart failure chronicity: acute on chronic Atrial fibrillation by electrocardiogram I48.91 Aortic stenosis I35.0 Diabetes E11.9
--- NOTE | 2019-09-06 14:00 | PC.NURSE ---
TR BAND REMOVED No bleeding, hematoma, swelling or bleeding noted on right wrist. Radial pulse is palpable 2+ to 3+. Applied pressure dressing and covered with transparent dressing. Instructed pt on activity restrictions to right arm. Pt verbalizes understanding.
[2019-09-06 16:09] LABS: Partial Thromboplastin Time 169.4 SECONDS (23.9-36.7)
[2019-09-06 17:16] LABS: Glucose Point of Care 132 mg/dL (70-110)
[2019-09-06 18:00] LABS: Partial Thromboplastin Time 43.7 SECONDS (23.9-36.7)
--- NOTE | 2019-09-06 18:35 | PC.NURSE ---
Femoral Sheath Removal Explained procedure to pt. Pre-medicated with Fentanyl as ordered. Right Femoral Artery felt and palpable. Sheath removed on right groin. Direct and firm pressure applied to femoral artery. Mild bleeding noted. Hemostasis achieved in 20 mins manual pressure. No hematoma, swelling noted to right groin area. Pt had a bilateral hip replacement and surgery. Instructed her to not raise the right leg and hip, to call nurse if any unusual increasing pain, numbness, wetness or pressure noted to right groin. Pt verbalizes understanding. Applied small amt of betadine and covered with dressing. PROSPER Dempsey in room as oncoming night nurse. Pedal pulses palpable 2+ to 3+ and neurovascular checks within normal. Will keep monitoring.
--- NOTE | 2019-09-06 18:45 | XACV_ITS ---
Exam Room: [facility] Ht: 150 cm Wt: 98 kg BSA: 2.08 m2 Gender: Female : 1950 Any Known Allergies: Other Exam Priority: Routine Procedure(s): Procedure Description: Diagnostic procedure Procedure Description: PCI procedure Procedure Description: Drug Eluting Coronary Stent Procedure Description: PTCA Procedure Description: Miscellaneous Procedure Description: ACT Procedure Description: Coronary Angiography Diagnostic Cath Status: Urgent Diagnostic Findings CX has 0% stenosis. LM: Mild 20% stenosis, ANGELES: 3 flow. dLAD: Severe 80% stenosis, ANGELES: 3 flow. 1st Diagonal Coronary Artery: Moderate 70% stenosis, ANGELES: 3 flow. 1st Diagonal Coronary Artery: Severe 95% stenosis, ANGELES: 2 flow. dRCA: Severe 95% stenosis, ANGELES: 2 flow. Coronary angiography shows right dominance. PCI Status: Urgent PCI Indication: New Onset Angina <= 2 months Interventional Findings 1st Diagonal Coronary Artery: 95% stenosis treated with AB MINI TREK 2.00X20 RX BALLOON. 65% residual stenosis, ANGELES: 3 flow. dRCA: 95% stenosis treated with AB TREK 2.50X12 RX BALLOON, MDT Carrol CEC[place] 2.75X12 COURT, and MDT EDVIN EUPHORA RX [id number] BALLOON. 0% residual stenosis, ANGELES: 3 flow. Conclusions There is severe coronary artery disease with three vessel disease. 1st Diagonal Coronary Artery was treated with Balloon. dRCA was treated with two Balloon and Drug Eluting Stent. Recommendations 1-Return to inpatient for close monitoring and routine cath care2-Risk factor modification for secondary prevention3-Statin and aspirin 81 mg life-long, if tolerated4-Continue Plavix 75mg p.o. daily for at least one year. We will assess at the end of one year again to continue if further or not5-Continue optimal medical management6-Follow up with Dr. Estrada in four weeks and your primary care in 10 days. Diagnostic RX Recommendation: PCI w/o planned CABG Pressures Phase:Rest AO : 91 mmHg / 51 mmHg ( 63 mmHg ) @ 5:31:00 AM 90 mmHg / 50 mmHg ( 57 mmHg ) @ 5:34:00 AM 101 mmHg / 67 mmHg ( 82 mmHg ) @ 5:40:00 AM 117 mmHg / 63 mmHg ( 82 mmHg ) @ 6:04:00 AM 113 mmHg / 59 mmHg ( 79 mmHg ) @ 6:11:00 AM 135 mmHg / 70 mmHg ( 96 mmHg ) @ 6:26:00 AM Clinical Evaluation EBL: 5mL-10mL Procedural Details Procedure Consent Obtained. Pre-Procedure Time Out. Identified patient by full name and date of as verbalized by the patient/guarantor. Does the consent match the physician's order: Yes. Accurate & Complete Informed Consent: Yes. Inpatient/Outpatient History & Physical on Chart: Yes. If H&P is completed, is and addenduem needed: No; If yes, is the addendum complete: N/A. Visualize and Verify Site with Patient/Guarantor: N/A. Relevant Radiology Images available: N/A. Pre-op teaching completed and patient verbalized understanding. The risks, benefits, and alternatives of sedation and/or procedure were discussed by physician. The patient agrees to continue. Procedure started. [facility] Clinical Fraility Score: 4: Vulnerable. Access Lead Indications: ACS > 24 hours. Chest Pain Symptom Assessment: Atypical Angina. Cardiovascular Instability: No. Correct patient, site and procedure confirmed by cath team. PERRLA. Strong, equal hand forging die sinker bilaterally. Lungs clear x 5 lobes. IV Site on Arrival: 18 gauge in the left anticubital. IV Fluids: 0.9% NaCl at KVO. 0 mL infused prior to laborer pie bakery. Pre Procedural Pulses: bilateral dorsalis pedis was Doppled. Pre Procedural Pulses: bilateral posterior tibial was Doppled. Pre Procedural Pulses: bilateral radial was 2+. Oxygen started at 2liters/min via nasal canula. Physician arrived. Equipment: 6F - Radial. AP pads applied to patient. bilateral groins was prepped with chloroprep then draped in the usual sterile fashion. Baseline sample Acquired. HR: 42 BPM. Physician scrubbed in. Immediate Pre-Procedure Time Out. Correct Patient: Yes; Correct Procedure: Yes; Correct Site: Yes; Correct Patient Position: Yes; Correct Supplies: Yes; Dried Flammable Prep: Yes; Blood Products Available: N/A;. Lidocaine 1% infiltrated to the right radial. Arterial access obtained. Cardiac Cath Pack. ACIST Manifold Kit Model BT 2000. Heparinized Saline (2 units/mL), 1000 mL bag. A 5 swedish TIG catheter in over wire. ACT drawn. Results 133 seconds. Therapeutic limits - pre-heparin administration 90-150 seconds and monitoring heparin during a vascular procedure >250 seconds. Multiple views taken of right coronary artery. Catheter removed over the exchange wire. A 5 swedish JL3.5 catheter in over wire. Unable to cannulate catheter using radial access. Physician moving to femoral approach. A TR Band was successful obtaining hemostatsis at the Right Radial artery insertion site. TR band placed. Hemostasis obtained. Patient's family unavailable. Lidocaine 1% infiltrated to the right groin. Called Ultrasound to come assist with gaining access in right groin. Arterial access obtained with micropuncture set. Called Ultrasound to cancel their assistance. Pt arrived with 24 g IV access in right forearm/wrist. This was removed upon arrival to laborer pie bakery. Pressure dressing applied to site. Hand injection. ACT drawn. Results 183 seconds. Therapeutic limits - pre-heparin administration 90-150 seconds and monitoring heparin during a vascular procedure >250 seconds. Catheter out. 6 swedish JR 4 SH guide catheter was inserted over the wire. [place] guidewire was advanced through the guide catheter to lesion in the mid RCA. Inflation number : 1 A AB TREK 2.50X12 RX BALLOON was prepped and advanced across the Mid RCA , then inflated to 10 GIULIA for 0:08 seconds. Inflation number: 2 The AB TREK 2.50X12 RX BALLOON was reinflated across the Mid RCA, to 16 GIULIA for 0:25 seconds. Balloon out. Inflation Number : 3 A MDT R CECIL[place] 2.75X12 COURT -Lot Number# [id number] (exp date 10/29/2020) was prepped and advanced across the Mid RCA. The stent was deployed at 16 GIULIA for 0:29 seconds. Stent balloon out over wire. Inflation number : 4 A MDT NC EUPHORA RX [id number] BALLOON was prepped and advanced across the Mid RCA , then inflated to 12 GIULIA for 0:14 seconds. Inflation number: 5 The MDT NC EUPHORA RX [id number] BALLOON was reinflated across the Mid RCA, to 14 GIULIA for 0:14 seconds. Inflation number: 6 The MDT NC EUPHORA RX [id number] BALLOON was reinflated across the Mid RCA, to 12 GIULIA for 0:15 seconds. Wire out. Guide catheter out. Inventory is CRD 6FR XB 3 GUIDE. 6 swedish XB 3 guide catheter was inserted over the wire. Inventory is CRD 6FR JL 3.5 GUIDE. 6 swedish JL 3.5 guide catheter was inserted over the wire. [place] guidewire was advanced through the guide catheter to lesion in the diaganol. Guideliner inserted. Unable to advance guideliner. Guideliner removed. Inflation number : 1 A AB MINI TREK 2.00X20 RX BALLOON was prepped and advanced across the 1st Diag , then inflated to 10 GIULIA for 0:25 seconds. Inflation number: 2 The AB MINI TREK 2.00X20 RX BALLOON was reinflated across the 1st Diag, to 10 GIULIA for 0:16 seconds. ACT drawn. Results 267 seconds. Therapeutic limits - pre-heparin administration 90-150 seconds and monitoring heparin during a vascular procedure >250 seconds. Physician scrubbed out. A Suture was successful obtaining hemostatsis at the Right Femoral artery insertion site. Sheath(s) sutured into position with 2-0 silk and sterile 4x4's and Op-site applied over the site. No oozing or signs and symptoms of hematoma noted. Arterial sheath flushed and connected to tranducer and pressure bag with heparinized saline. Post Procedure: Pulses reassessed and unchanged. PERRLA. Strong, equal hand forging die sinker bilaterally. No VTE prophylaxis required. Medication's Wasted: Lidocaine 1% = 5 mL. Medication's Wasted: Heparin = 1000 units. Medication's Wasted: Nitro = 49.6 mg. Total IV fluids: 300 mL. Contrast type used: Omnipaque 300 mgI/mL, 500 mL bottle. Complications: none. Estimated blood loss: 5mL-10mL. PCI Indication: NSTE. Post-op diagnosis: NSTEMI. Procedure completed. Patient transferred by bed to 1st floor. Vital chart was stopped. Site: Right Radial artery Sheath Size: 6 Fr Hemostasis Method: TR Band Hemostasis Success: Successful Site: Right Femoral artery Sheath Size: 6 Fr Hemostasis Method: Suture Hemostasis Success: Successful Procedure Medications Start: 10:18 AM Stop: 10:18 AM Medication: Versed Amount: 1 mg Route: I.V. Start: 10:18 AM Stop: 10:18 AM Medication: Fentanyl Amount: 25 mcg Route: I.V. Start: 10:26 AM Stop: 10:26 AM Medication: Nitrogylcerin Amount: 200 mcg Route: I.A. Start: 10:26 AM Stop: 10:26 AM Medication: Versed Amount: 1 mg Route: I.V. Start: 10:26 AM Stop: 10:26 AM Medication: Fentanyl Amount: 25 mcg Route: I.V. Start: 10:30 AM Stop: 10:30 AM Medication: Atropine Amount: 0.5 mg Route: I.V. Start: 10:32 AM Stop: 10:32 AM Medication: Heparin Amount: 4000 units Route: I.V. Start: 10:33 AM Stop: :33 AM Medication: Atropine Amount: 0.5 mg Route: I.V. Start: 10: AM Stop: :41 AM Medication: Versed Amount: 1 mg Route: I.V. Start: 10:54 AM Stop: 10:54 AM Medication: Benadryl Amount: 50 mg Route: I.V. Start: 11:13 AM Stop: 11:13 AM Medication: Heparin Amount: 4000 units Route: I.V. Start: 11:33 AM Stop: 11:33 AM Medication: Versed Amount: 1 mg Route: I.V. Start: 11:46 AM Stop: 11:46 AM Medication: Nitrogylcerin Amount: 200 mcg Route: I.C. Start: 11:46 AM Stop: 11:46 AM Medication: Versed Amount: 1 mg Route: I.V. I, the attending physician, have reviewed and verified all procedure medications. Yes, all medications given per verbal order History/Risk Factors Hypertension: Yes Dyslipidemia: Yes Diabetic Therapy: Oral Peripheral Arterial Disease (PAD): No Myocardial Infarction ([place]): Yes Obesity: Yes Renal Disease: No Tobacco Use: Never Prior Interventions PCI: No CABG: No Valve Surgery: No Report Signatures Finalized by:Ruchi Estrada MD on 09/19/2019 8:12:51 PM
[2019-09-06] MEDS: sodium chloride 0.45% 1,000 ML 100 ML IV (19:28)
[2019-09-06] MEDS: fentaNYL 50 mcg/mL INJ 2mL 25 MCG IVP (19:33)
[2019-09-06 20:32] LABS: Glucose Point of Care 155 mg/dL (70-110)
--- NOTE | 2019-09-06 21:36 | PC.NURSE ---
Dr. Estrada notified of patient's BP of 103/50. This nurse also explained to physician that patient's systolic has been running low. Order received to hold Bumex at this time. This nurse also clarified Heparin drip. Received order to not restart Heparin drip. Cath site to right groin soft with no hematoma or bleeding noted at this time. Will monitor.
[2019-09-06] MEDS: atorvastatin 40 mg Tablet 80 MG PO (21:41)
[2019-09-06] MEDS: gabapentin 100 mg Capsule PO (21:41)
[2019-09-06] MEDS: insulin glargine 100 units/1 mL 12 UNIT SUBCUT (21:42)
[2019-09-07] VITALS (8 sets, daily range): BP systolic 83–151; BP diastolic 54–66; PULSE 53–66; RESP 13–22; TEMP 36.6–36.8; O2SAT 96–100
--- NOTE | 2019-09-07 03:50 | PC.NURSE ---
Dressing to right wrist and right groin intact. No bleeding noted. Bruising from previous needle stick noted above dressing to right wrist. Just tender. Patient able to move right leg. Thank god.....it was getting a little stiff. Will monitor.
[2019-09-07 03:52] LABS: Basophils % 0.3 %; Eosinophils # 0.1 10^3/uL (0.0-0.8); Eosinophils % 2.1 %; Hematocrit 26.7 % (37.0-47.0); Hemoglobin 8.3 g/dL (11.5-15.3); Lymphocytes # 1.2 10^3/uL (0.8-4.8); Mean Corpuscular HGB Conc 31.1 g/dL (30.0-36.0); Mean Corpuscular Hemoglobin 30.1 pg (28.0-34.0); Mean Corpuscular Volume 96.7 fL (81-99); Mean Platelet Volume 10.3 fL (7.4-10.4); Monocytes # 0.6 10^3/uL (0.2-0.9); Monocytes % 9.2 %; Neutrophils # 4.1 10^3/uL (1.8-7.7); Neutrophils % 67.9 %; Nucleated Red Blood Cells % 0 %; Platelet Count 207 10^3/cmm (130-400); Red Blood Count 2.76 10^6/uL (4.1-5.3); Red Cell Distribution Width 15.9 % (12.1-15.1); White Blood Count 6.1 10^3/uL (4.0-10.0)
[2019-09-07 04:02] LABS: Blood Urea Nitrogen 29 mg/dL (8-23); Calcium 9.1 mg/dL (8.5-10.5); Carbon Dioxide 26 mmol/L (22-29); Chloride 100 mmol/L (98-107); Chol HDL Ratio 2.15 mg/dL (0.0-4.40); Cholesterol 86 mg/dL (0-200); Glomerular Filtration Rate 34.4 mL/min (90-130); Glucose 168 mg/dL (65-115); HDL Cholesterol 40 mg/dL (60-100); Osmolality Calculated 287 mOsm/kg (285-295); Sodium 138 mmol/L (136-145)
[2019-09-07 04:12] LABS: Estmated Average Glucose 157; Hemoglobin A1C 7.1 % (4.0-6.0)
[2019-09-07 04:23] LABS: LDL Cholesterol Calculated 25 mg/dL (50-129); LDL HDL Ratio 0.63 RATIO (0.00-3.22); Triglycerides 103 mg/dL (0-150)
--- NOTE | 2019-09-07 05:52 | PC.NURSE ---
Complaining of right arm being more sorer than right groin. Hope I can still eat. Will monitor.
[2019-09-07 06:26] LABS: Glucose Point of Care 150 mg/dL (70-110)
[2019-09-07] MEDS: NIFEdipine ER (24 hr) 30 mg Tablet PO (09:40)
[2019-09-07] MEDS: sertraline 50 mg Tablet 25 MG PO (09:40)
[2019-09-07] MEDS: aspirin 81 mg EC Tablet PO (09:40)
[2019-09-07] MEDS: clopidogrel 75 mg Tablet PO (09:41)
[2019-09-07] MEDS: levothyroxine 50 mcg Tablet PO (09:41)
--- NOTE | 2019-09-07 09:45 | PC.NURSE ---
DR SIFUENTES REQUESTED BUMEX IV AND BUMEX PO BE HELD
--- NOTE | 2019-09-07 11:41 | PC.CHAP ---
Pastoral Care Encounter/Spiritual Assessment Type of Contact [] Declined bottle gauger visit [] Patient/Family/Request visit [] Outpatient visit [] Follow-up visit [] Physician referral [] Code/Alert [] Routine visit [] Staff referral [] Actively dying [] Patient sleeping [] Family support [] [] Out of room [] Palliative care [] [] Receiving care in room [] Pre-surgical visit [] Trauma [] Long length of stay [] ICU visit [] Other: A sleep Relational/Emotional Strength [] Patient feels connected with others/family/visitors/staff [] Distress [] Loneliness/isolation [] Abandonment Spirituality of Patient [] Person of Shira [] Attends Bahai of their Shira [] Believes in Prayer [] Reads Bible or Bahai materials [] There are Spiritual issues to be addressed Rfid Manager Interventions [] Prayer [] Active listening [] Non-anxious presence [] Spiritual/emotional support [] Crisis/trauma care [] Spiritual counseling [] Bereavement support [] Provided bereavement packet [] Provided Bible/devotional materials [] Provided toy/stuffed animal, coloring book to patient or family member [] Provided Communion [] Anointing/[place] [] Salvation [] Completed spiritual assessment [] Other: Impact on Illness or Injury [] Angry [] Fearful [] Anxious [] Often cries [] Exhaustion [] Unable to work [] Unable to attend baptism [] Unable to walk/stand [] Unable to read [] Unable to drive [] Unable to eat/drink [] Unable to sleep [] Unable to be with family [] Patient intubated [] Other: Summary A sleep Time spent with patient 5 mins
--- NOTE | 2019-09-07 11:47 | PM.PN ---
Subjective Subjective: Interval history: AM labs noted, off heparin drip. Diuretics on hold due to tendency towards low BP. Patient seen and examined, alert and oriented x 3, has had some intermittent left sided chest pressure but not as intense as episodes prior to admission, José catheter still in place, will discontinue. Case discussed briefly with Dr. Estrada. Patient has some residual soreness at R wrist, site of TR band. Reviewed telemetry, HR in 50-60 range, patient denies lightheadedness/dizziness, SOB. Medications: Reviewed: Yes Medication Review Details: Active Medications Generic Name Dose Route Start Last Admin Trade Name Freq PRN Reason Stop Dose Admin Acetaminophen 650 mg 09/06/19 12:01 Tylenol PO Q6H PRN MILD PAIN Alprazolam 0.25 mg 09/06/19 12:01 Xanax PO TID PRN ANXIETY Apixaban 2.5 mg 09/07/19 18:00 Eliquis PO BID PINA Aspirin 81 mg 09/06/19 09:00 09/07/19 09:40 Aspirin Ec PO 81 mg DAILY PINA Administration Atorvastatin Calci um 80 mg 09/05/19 21:00 09/06/19 21:41 Lipitor PO 80 mg BEDTIME PINA Administration Atropine Sulfate 0.5 mg 09/06/19 12:01 Atropine IVP PRN PRN Symptomatic cate cardia Bumetanide 1 mg 09/05/19 20:45 09/07/19 09:41 Bumex IV Not Given Q12H PINA Bumetanide 2 mg 09/07/19 09:00 09/07/19 09:42 Bumex PO Not Given DAILY PINA Clopidogrel Bisulf ate 75 mg 09/06/19 12:05 09/07/19 09:41 Plavix PO 75 mg DAILY PINA Administration Dextrose 25 ml 09/05/19 20:40 D50w IVP ONCE PRN hypoglycemia prot ocol Protocol Dextrose 50 ml 09/05/19 20:40 D50w IVP PRN PRN hypoglycemia prot ocol Protocol Fentanyl 1 patch 09/05/19 20:45 09/05/19 22:17 Duragesic 50 Mcg Patch TRANSDERMA 1 patch Q72H PINA Administration Gabapentin 100 mg 09/05/19 21:00 09/06/19 21:41 Neurontin PO 100 mg BEDTIME PINA Administration Glucagon 1 mg 03/22/20 20:40 Glucagen IM ONCE PRN Adult Acute Hypog lycemia Prot. Protocol Heparin Sodium/Sod ium Chloride 25,000 unit in 50 0 mls @ 19.595 mls /hr 09/05/19 20:45 09/06/19 21:21 Heparin Drip IV Not Given .Q24H PINA 12 UNIT/KG/HR Dextrose 500 mls @ 100 mls /hr 09/05/19 20:40 D5w IV ONCE PRN Adult Acute Hypog lycemia Prot Protocol Insulin Aspart 0 unit 09/06/19 08:00 09/07/19 09:40 Novolog SUBCUT 4 unit TIDWM PINA Administration Protocol Insulin Glargine 12 unit 09/06/19 21:00 09/06/19 21:42 Lantus SUBCUT 12 unit BEDTIME PINA Administration Isosorbide Mononit rate 30 mg 09/06/19 09:00 09/06/19 08:03 Imdur PO Not Given BID REPLACED BY [facility] Levothyroxine Sodi um 50 mcg 09/06/19 09:00 09/07/19 09:41 Synthroid PO 50 mcg DAILY REPLACED BY [facility] Administration Magnesium Hydroxid e 30 ml 09/06/19 12:01 Milk Of Magnesia PO DAILY PRN CONSTIPATION Morphine Sulfate 4 mg 09/05/19 20:37 09/06/19 00:24 Morphine IVP 4 mg Q4H PRN Administration SEVERE PAIN Naloxone HCl 0.1 mg 09/06/19 12:01 Narcan IVP Q2M PRN RESPIRATORY RATE < 8/MIN Nifedipine 30 mg 09/07/19 09:00 09/07/19 09:40 Procardia Xl PO 30 mg DAILY REPLACED BY [facility] Administration Nitroglycerin 1 inch 09/05/19 20:45 09/07/19 05:45 Nitro-Bid TOPICAL Not Given Q6H REPLACED BY [facility] Nitroglycerin 0.4 mg 09/06/19 12:01 Nitrostat SUBLINGUAL Q5M PRN CHEST PAIN Ondansetron HCl 4 mg 09/05/19 20:37 Zofran IVP Q6H PRN NAUSEA AND VOMITI NG Ondansetron HCl 4 mg 09/05/19 20:37 Zofran PO BID PRN Nausea Potassium Chloride 10 meq 09/06/19 09:00 09/07/19 09:40 Klor-Con 10 PO 10 meq DAILY PINA Administration Sertraline HCl 25 mg 09/06/19 09:00 09/07/19 09:40 Zoloft PO 25 mg DAILY PINA Administration Temazepam 15 mg 09/06/19 12:01 Restoril PO BEDTIME PRN INSOMNIA duloxetine [From Cymbalta] Allergy (Verified 09/05/19 13:48) Unknown prochlorperazine [From Compazine] Allergy (Verified 09/05/19 13:45) ALGY-Anaphylaxis sucralfate [From Carafate] Allergy (Verified 09/05/19 13:48) Unknown trazodone Allergy (Verified 09/05/19 13:48) Unknown zaleplon [From Sonata] Allergy (Verified 09/05/19 13:48) Unknown Vitals/I&O/Wt Last Vital Signs Temp 97.8 F 09/07/19 10:42 Pulse 60 09/07/19 10:42 Resp 13 09/07/19 10:42 BP 133/54 09/07/19 10:42 Pulse Ox 100 09/07/19 10:42 09/06/19 09/07/19 09/07/19 22:59 06:59 14:59 Intake Total 120 / 120 240 / 240 Output Total 500 / 1100 Balance -380 / -980 240 / 240 Weight last 48 hrs Weight 97.885 kg Weight 81.647 kg Physical Exam Const: COMMON NORMALS: no apparent distress and oriented x3 GENERAL APPEARANCE: cooperative and comfortable NUTRITIONAL APPEARANCE: obese morbidly obese ORIENTATION/CONSCIOUSNESS: Yes awake HENMT: COMMON NORMALS: normocephalic, head/scalp atraumatic, hearing grossly normal bilaterally and moist oral mucous membranes HEAD & SCALP: normocephalic and atraumatic Eye: COMMON NORMALS: PERRL, EOMs intact bilaterally and conjunctivae normal CONJUNCTIVA: Yes conjunctivae normal PUPIL: Yes PERRL Neck/C-Spine: COMMON NORMALS: full ROM GENERAL: Yes normal visual inspection and Yes trachea midline Chest: COMMONS NORMALS: inspection of chest normal and palpation of chest normal Resp: COMMON NORMALS: normal respiratory effort, no retractions, no use of accessory muscles and clear to auscultation bilaterally EFFORT & INSPECTION: Yes able to speak in complete sentences, Yes symmetric chest movement and No tachypneic AUSCULTATION: clear to auscultation bilaterally Cardio: COMMON NORMALS: regular rhythm, S1 normal heart sound, S2 normal heart sound and no murmurs RATE: bradycardic RHYTHM: regular rhythm HEART SOUNDS: S1 normal and S2 normal GI: COMMON NORMALS: normal to inspection, nondistended, normoactive bowel sounds, soft to palpation and non-tender INSPECTION: Yes central obesity PALPATION: Yes soft : BLADDER/KIDNEY EXAM: Yes catheter in place Catheter type (Female): urethral Extremity: COMMON NORMALS: normal to inspection, full ROM and no clubbing, cyanosis or edema; negative for no pedal edema NARRATIVE EXTREMITY EXAM: -clean dressing, no hematoma on inspection of R wrist, R inguinal areas Neuro: COMMON NORMALS: oriented x3, moves all extremities, no focal motor deficits and no sensory deficits noted Psych: COMMON NORMALS: mental status grossly normal, thought process normal, cooperative, affect normal and speech normal SPEECH: Yes normal speech THOUGHT PROCESS: normal thought process Skin: COMMON NORMALS: no rashes or lesions noted, no jaundice, no petechiae and no mottling GENERAL SKIN EXAM: no rashes or lesions noted Urinary Catheter Management^: José: Cath Placed During This Visit: yes Reason for Continuing Indwelling Catheter: Other Urinary Catheter Date of Insertion: 09/06/19 Urinary Catheter Time of Insertion: 13:27 Data : 09/07/19 03:30 09/07/19 03:30 Micro: Microbiology 09/05/19 14:29 Blood Culture - Preliminary Blood NEGATIVE TO DATE 09/05/19 14:20 Blood Culture - Preliminary Blood NEGATIVE TO DATE A&P Assessment and plan (1) ACS (acute coronary syndrome): -Presented with complaints of chest pain and shortness of breath, STEMI alert called en route to the ER -Recent admission for chest pain, had stress testing done with noted small sathya-infarct ischemia in RCA/circumflex territory, large size perfusion abnormality of moderate to severe severity of the entire inferior, mild to apical inferolateral, apical lateral and apical watters with some reversibility in mid inferior, mid to apical inferolateral watters; EKG portion was unremarkable -Evaluated by Dr. Estrada, plan for medical management as patient has pre-existing evidence of AZ involving the inferolateral region that is nonviable. s/p cath (09/05) with intervention done -Loaded with aspirin and Plavix, heparin drip; continue nitrates, statin, beta-gato; resume Eliquis today -Troponin trend noted, significant delta change noted -serial ECGs with noted atrial fibrillation, RBBB -Telemetry monitoring -Vital signs stable, continue to monitor -Had echo done during most recent admission showing an ejection fraction of 55%, grade 2 diastolic dysfunction, mild pulmonary hypertension, mild aortic stenosis, mild to moderate mitral regurgitation -has prior hx of CAD Status: Acute Code(s): I24.9 - Acute ischemic heart disease, unspecified (2) Heart failure with preserved ejection fraction: -Noted acute exacerbation of chronic diastolic CHF as evidenced by symptomatic dyspnea, elevated BNP of 8389 -Echo as noted above -On diuresis with IV Bumex -Continue to monitor I's and O's, daily weight, renal function and electrolytes -cardiac diet as tolerated Status: Acute Qualifiers: Heart failure chronicity: acute on chronic Qualified Code(s): I50.33 - Acute on chronic diastolic (congestive) heart failure Code(s): I50.30 - Unspecified diastolic (congestive) heart failure Additional A&P Information -Morbid obesity: BMI-44 kg/m2 -Recently treated for UTI, with Cipro -IDDM type II; A1c-7.1; Accucheks, ISS -HTN; VSS: on oral antihypertensive regimen -Hyperlipidemia; on statin; lipid panel noted -SOB: screened for influenza due to SOB, negative; CXR-interstitial fibrosis; supplemental oxygen as needed; continue to monitor respiratory status -Chronic atrial fibrillation, on BB; resume Eliquis as off heparin drip; intermittently bradycardic, during last admission was noted to have atrial fibrillation with slow VR -CKD stage 3-4, 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 Time Spent in Patient Care: 16 - 35 minutes (>than 50% of time spent in counselling and/or direct pt care on unit). Coding Level of Care Code Acute Costumed Character Entertainer for [facility] Fwd Exam Comprehensive Diagnoses ACS (acute coronary syndrome) I24.9 Heart failure with preserved ejection fraction I50.33 Heart failure chronicity: acute on chronic
[2019-09-07 11:54] LABS: Glucose Point of Care 275 mg/dL (70-110)
--- NOTE | 2019-09-07 13:47 | PC.NURSE ---
DR SIFUENTES WANTS IV BUMEX GIVEN BUT HOLD PO
[2019-09-07] MEDS: bumetanide 0.25 mg/mL SDV 10 mL 1 MG IV (14:01)
[2019-09-07 16:57] LABS: Glucose Point of Care 106 mg/dL (70-110)
--- NOTE | 2019-09-07 20:05 | PM.PN ---
Subjective Subjective: Interval history: Status post PCI to RCA and balloon angioplasty of proximal and mid moderate size diagonal branch. RCA was a culprit. Overall she is living short of breath today creatinine has worsened to 1.5. Heart rate has improved. Medications: Reviewed: Yes Medication Review Details: Active Medications Generic Name Dose Route Start Last Admin Trade Name Freq PRN Reason Stop Dose Admin Acetaminophen 650 mg 09/06/19 12:01 Tylenol PO Q6H PRN MILD PAIN Alprazolam 0.25 mg 09/06/19 12:01 Xanax PO TID PRN ANXIETY Apixaban 2.5 mg 09/07/19 18:00 Eliquis PO BID PINA Aspirin 81 mg 09/06/19 09:00 09/07/19 09:40 Aspirin Ec PO 81 mg DAILY PINA Administration Atorvastatin Calci um 80 mg 09/05/19 21:00 09/06/19 21:41 Lipitor PO 80 mg BEDTIME PINA Administration Atropine Sulfate 0.5 mg 09/06/19 12:01 Atropine IVP PRN PRN Symptomatic cate cardia Bumetanide 1 mg 09/05/19 20:45 09/07/19 09:41 Bumex IV Not Given Q12H PINA Bumetanide 2 mg 09/07/19 09:00 09/07/19 09:42 Bumex PO Not Given DAILY PINA Clopidogrel Bisulf ate 75 mg 09/06/19 12:05 09/07/19 09:41 Plavix PO 75 mg DAILY PINA Administration Dextrose 25 ml 09/05/19 20:40 D50w IVP ONCE PRN hypoglycemia prot ocol Protocol Dextrose 50 ml 09/05/19 20:40 D50w IVP PRN PRN hypoglycemia prot ocol Protocol Fentanyl 1 patch 09/05/19 20:45 09/05/19 22:17 Duragesic 50 Mcg Patch TRANSDERMA 1 patch Q72H PINA Administration Gabapentin 100 mg 09/05/19 21:00 09/06/19 21:41 Neurontin PO 100 mg BEDTIME PINA Administration Glucagon 1 mg 09/05/19 20:40 Glucagen IM ONCE PRN Adult Acute Hypog lycemia Prot. Protocol Heparin Sodium/Sod ium Chloride 25,000 unit in 50 0 mls @ 19.595 mls /hr 09/05/19 20:45 09/06/19 21:21 Heparin Drip IV Not Given .Q24H PINA 12 UNIT/KG/HR Dextrose 500 mls @ 100 mls /hr 09/05/19 20:40 D5w IV ONCE PRN Adult Acute Hypog lycemia Prot Protocol Insulin Aspart 0 unit 09/06/19 08:00 09/07/19 09:40 Novolog SUBCUT 4 unit TIDWM PINA Administration Protocol Insulin Glargine 12 unit 09/06/19 21:00 09/06/19 21:42 Lantus SUBCUT 12 unit BEDTIME PINA Administration Isosorbide Mononit rate 30 mg 09/06/19 09:00 09/06/19 08:03 Imdur PO Not Given BID [facility] Levothyroxine Sodi um 50 mcg 09/06/19 09:00 09/07/19 09:41 Synthroid PO 50 mcg DAILY [facility] Administration Magnesium Hydroxid e 30 ml 09/06/19 12:01 Milk Of Magnesia PO DAILY PRN CONSTIPATION Morphine Sulfate 4 mg 09/05/19 20:37 09/06/19 00:24 Morphine IVP 4 mg Q4H PRN Administration SEVERE PAIN Naloxone HCl 0.1 mg 09/06/19 12:01 Narcan IVP Q2M PRN RESPIRATORY RATE < 8/MIN Nifedipine 30 mg 09/07/19 09:00 09/07/19 09:40 Procardia Xl PO 30 mg DAILY [facility] Administration Nitroglycerin 1 inch 09/05/19 20:45 09/07/19 05:45 Nitro-Bid TOPICAL Not Given Q6H [facility] Nitroglycerin 0.4 mg 09/06/19 12:01 Nitrostat SUBLINGUAL Q5M PRN CHEST PAIN Ondansetron HCl 4 mg 09/05/19 20:37 Zofran IVP Q6H PRN NAUSEA AND VOMITI NG Ondansetron HCl 4 mg 09/05/19 20:37 Zofran PO BID PRN Nausea Potassium Chloride 10 meq 09/06/19 09:00 09/07/19 09:40 Klor-Con 10 PO 10 meq DAILY PINA Administration Sertraline HCl 25 mg 09/06/19 09:00 09/07/19 09:40 Zoloft PO 25 mg DAILY [facility] Administration Temazepam 15 mg 09/06/19 12:01 Restoril PO BEDTIME PRN INSOMNIA duloxetine [From Cymbalta] Allergy (Verified 09/05/19 13:48) Unknown prochlorperazine [From Compazine] Allergy (Verified 09/05/19 13:45) ALGY-Anaphylaxis sucralfate [From Carafate] Allergy (Verified 09/05/19 13:48) Unknown trazodone Allergy (Verified 09/05/19 13:48) Unknown zaleplon [From Sonata] Allergy (Verified 09/05/19 13:48) Unknown Vitals/I&O/Wt Last Vital Signs Temp 98.2 F 09/07/19 19:59 Pulse 62 09/07/19 19:59 Resp 22 H 09/07/19 19:59 BP 124/56 09/07/19 19:59 Pulse Ox 99 09/07/19 19:59 09/07/19 09/07/19 09/07/19 06:59 14:59 22:59 Intake Total 480 / 480 Balance 480 / 480 Weight last 48 hrs Weight 215 lb 12.8 oz Physical Exam Const: COMMON NORMALS: oriented x3; apparent distress EXAM LIMITATIONS: no altered mental status and no behavioral limitations GENERAL APPEARANCE: cooperative and comfortable ORIENTATION/CONSCIOUSNESS: Yes awake, Yes oriented to person, Yes oriented to place and Yes oriented to time HENMT: COMMON NORMALS: normocephalic HEAD & SCALP: normocephalic Resp: EFFORT & INSPECTION: Yes able to speak in complete sentences (Not able to complete sentences, short of breath) and Yes tachypneic AUSCULTATION: rales bilateral Cardio: COMMON NORMALS: regular rate (Irregularly irregular), S1 normal heart sound and S2 normal heart sound RATE: regular rate (Irregularly irregular) HEART SOUNDS: S1 normal and S2 normal Extremity: OTHER: No bilateral lower extremity edema Neuro: COMMON NORMALS: oriented x3 and CN's II-XII intact bilaterally SENSORIUM/ORIENTATION: Yes oriented to person, Yes oriented to place and Yes oriented to time Psych: COMMON NORMALS: mental status grossly normal Urinary Catheter Management^: José: Cath Placed During This Visit: yes, but has since been removed by the nurse Reason for Continuing Indwelling Catheter: Other Urinary Catheter Date of Insertion: 09/06/19 Urinary Catheter Time of Insertion: 13:27 Date Urinary Catheter Removed: 09/07/19 Time Urinary Catheter Discontinued: 13:08 Data : 09/07/19 03:30 09/07/19 03:30 A&P Assessment and plan (1) ACS (acute coronary syndrome): Status post PCI to mid RCA and balloon angioplasty to diagonal. Continue statin Plavix. Resume apixaban Status: Acute Code(s): I24.9 - Acute ischemic heart disease, unspecified (2) Acute kidney injury superimposed on chronic kidney disease: Slightly worsened 1.5. Continue to monitor Status: Acute Code(s): N17.9 - Acute kidney failure, unspecified; N18.9 - Chronic kidney disease, unspecified (3) Heart failure with preserved ejection fraction: Appeared to be is slightly decompensated heart failure. We will stop IV fluid start Bumex Status: Acute Qualifiers: Heart failure chronicity: acute on chronic Qualified Code(s): I50.33 - Acute on chronic diastolic (congestive) heart failure Code(s): I50.30 - Unspecified diastolic (congestive) heart failure (4) Atrial fibrillation by electrocardiogram: Continue holding metoprolol. Resume apixaban Status: Acute Code(s): I48.91 - Unspecified atrial fibrillation (5) Aortic stenosis: [id number] aortic stenosis. We'll continue to monitor. Status: Acute Code(s): I35.0 - Nonrheumatic aortic (valve) stenosis (6) Diabetes: As per medicine. 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
[2019-09-07 21:07] LABS: Glucose Point of Care 152 mg/dL (70-110)
[2019-09-07] MEDS: gabapentin 100 mg Capsule PO (21:45)
[2019-09-07] MEDS: insulin glargine 100 units/1 mL 12 UNIT SUBCUT (21:45)
[2019-09-07] MEDS: atorvastatin 40 mg Tablet 80 MG PO (21:45)
[2019-09-07] MEDS: nitroglycerin 1 gm/inch oint Pkt 1 INCH TOPICAL (22:04)
--- NOTE | 2019-09-07 22:34 | PC.NURSE ---
José was removed by previous shift. Medications were given by previous shift;however, weren't scanned. Verified by calling the previous shift nurse. Denies complaints at this time. Dressings to right wrist and right groin dry and intact with no bleeding or hematoma noted. Will monitor.
[2019-09-08] VITALS (9 sets, daily range): BP systolic 105–129; BP diastolic 46–64; PULSE 60–79; RESP 11–20; TEMP 36.8–37.6; O2SAT 96–100
[2019-09-08] MEDS: apixaban 5 mg Tablet 2.5 MG PO ×3 (02:18→17:50)
[2019-09-08] MEDS: bumetanide 0.25 mg/mL SDV 10 mL 1 MG IV (02:18)
--- NOTE | 2019-09-08 04:52 | PC.NURSE ---
BP at 0400: 105/47. Nitro Paste held at this time. Will monitor.
[2019-09-08 04:58] LABS: Anion Gap 17.2 (5-19); Blood Urea Nitrogen 40 mg/dL (8-23); Carbon Dioxide 23 mmol/L (22-29); Chloride 99 mmol/L (98-107); Glomerular Filtration Rate 23.4 mL/min (90-130); Glucose 184 mg/dL (65-115); Osmolality Calculated 282 mOsm/kg (285-295); Potassium 4.2 mmol/L (3.5-5.1); Sodium 135 mmol/L (136-145)
[2019-09-08 06:42] LABS: Glucose Point of Care 190 mg/dL (70-110)
--- NOTE | 2019-09-08 07:20 | PC.NURSE ---
BUMEX DISCUSSED WITH DR. PATINO PATIENT'S BUN AND CREATININE CHANGES. ORDERED TO HOLD BOTH PO AND IV BUMEX.
[2019-09-08] MEDS: clopidogrel 75 mg Tablet PO (08:20)
[2019-09-08] MEDS: aspirin 81 mg EC Tablet PO (08:20)
[2019-09-08] MEDS: NIFEdipine ER (24 hr) 30 mg Tablet PO (08:20)
[2019-09-08] MEDS: levothyroxine 50 mcg Tablet PO (08:20)
--- NOTE | 2019-09-08 08:28 | P.PN_ITS ---
Subjective Subjective: Interval history: AM labs noted, has worsening renal function likely due to diuresis so will hold Bumex. Low normal BP so hold nitrates. Patient seen and examined, no urine output so far this shift, on bladder scan had 30 mL volume noted, costa catheter discontinued yesterday. Will give 500 mL bolus and repeat renal function this afternoon. No complaints currently other t fonseca soreness in R wrist area, encouraged to get up at least for meals. HR seems to be better today. Medications: Reviewed: Yes Medication Review Details: Active Medications Generic Name Dose Route Start Last Admin Trade Name Freq PRN Reason Stop Dose Admin Acetaminophen 650 mg 09/06/19 12:01 Tylenol PO Q6H PRN MILD PAIN Alprazolam 0.25 mg 09/06/19 12:01 Xanax PO TID PRN ANXIETY Apixaban 2.5 mg 09/07/19 18:00 09/08/19 08:20 Eliquis PO 2.5 mg BID PINA Administration Aspirin 81 mg 09/06/19 09:00 09/08/19 08:20 Aspirin Ec PO 81 mg DAILY PINA Administration Atorvastatin Calci um 80 mg 09/05/19 21:00 09/07/19 21:45 Lipitor PO 80 mg BEDTIME PINA Administration Atropine Sulfate 0.5 mg 09/06/19 12:01 Atropine IVP PRN PRN Symptomatic cate cardia Bumetanide 1 mg 09/05/19 20:45 09/08/19 02:18 Bumex IV 1 mg Q12H PINA Administration Bumetanide 2 mg 09/07/19 09:00 09/07/19 09:42 Bumex PO Not Given DAILY PINA Clopidogrel Bisulf ate 75 mg 09/06/19 12:05 09/08/19 08:20 Plavix PO 75 mg DAILY PINA Administration Dextrose 25 ml 09/05/19 20:40 D50w IVP ONCE PRN hypoglycemia prot ocol Protocol Dextrose 50 ml 09/05/19 20:40 D50w IVP PRN PRN hypoglycemia prot ocol Protocol Fentanyl 1 patch 09/05/19 20:45 09/05/19 22:17 Duragesic 50 Mcg Patch TRANSDERMA 1 patch Q72H PINA Administration Gabapentin 100 mg 09/05/19 21:00 09/07/19 21:45 Neurontin PO 100 mg BEDTIME PINA Administration Glucagon 1 mg 09/05/19 20:40 Glucagen IM ONCE PRN Adult Acute Hypog lycemia Prot. Protocol Dextrose 500 mls @ 100 mls /hr 09/05/19 20:40 D5w IV ONCE PRN Adult Acute Hypog lycemia Prot Protocol Insulin Aspart 0 unit 09/06/19 08:00 09/08/19 08:19 Novolog SUBCUT 6 unit TIDWM PINA Administration Protocol Insulin Glargine 12 unit 09/06/19 21:00 09/07/19 21:45 Lantus SUBCUT 12 unit BEDTIME PINA Administration Isosorbide Mononit rate 30 mg 09/06/19 09:00 09/06/19 08:03 Imdur PO Not Given BID [facility] Levothyroxine Sodi um 50 mcg 09/06/19 09:00 09/08/19 08:20 Synthroid PO 50 mcg DAILY [facility] Administration Magnesium Hydroxid e 30 ml 09/06/19 12:01 Milk Of Magnesia PO DAILY PRN CONSTIPATION Naloxone HCl 0.1 mg 09/06/19 12:01 Narcan IVP Q2M PRN RESPIRATORY RATE < 8/MIN Nifedipine 30 mg 09/07/19 09:00 09/08/19 08:20 Procardia Xl PO 30 mg DAILY [facility] Administration Nitroglycerin 1 inch 09/05/19 20:45 09/08/19 04:35 Nitro-Bid TOPICAL Not Given Q6H [facility] Nitroglycerin 0.4 mg 09/06/19 12:01 Nitrostat SUBLINGUAL Q5M PRN CHEST PAIN Ondansetron HCl 4 mg 09/05/19 20:37 Zofran IVP Q6H PRN NAUSEA AND VOMITI NG Potassium Chloride 10 meq 09/06/19 09:00 09/08/19 08:20 Klor-Con 10 PO 10 meq DAILY [facility] Administration Temazepam 15 mg 09/06/19 12:01 Restoril PO BEDTIME PRN INSOMNIA duloxetine [From Cymbalta] Allergy (Verified 09/05/19 13:48) Unknown prochlorperazine [From Compazine] Allergy (Verified 09/05/19 13:45) ALGY-Anaphylaxis sucralfate [From Carafate] Allergy (Verified 09/05/19 13:48) Unknown trazodone Allergy (Verified 09/05/19 13:48) Unknown zaleplon [From Sonata] Allergy (Verified 09/05/19 13:48) Unknown Vitals/I&O/Wt Last Vital Signs Temp 99.6 F 09/08/19 07:30 Pulse 66 09/08/19 07:30 Resp 11 L 09/08/19 07:30 BP 116/55 09/08/19 07:30 Pulse Ox 96 09/08/19 07:30 09/07/19 09/08/19 09/08/19 22:59 06:59 14:59 Intake Total 120 / 600 120 / 720 Balance 120 / 600 120 / 720 Physical Exam Const: COMMON NORMALS: no apparent distress and oriented x3 GENERAL APPEARANCE: cooperative and comfortable NUTRITIONAL APPEARANCE: obese morbidly obese ORIENTATION/CONSCIOUSNESS: Yes awake HENMT: COMMON NORMALS: normocephalic, head/scalp atraumatic, hearing grossly normal bilaterally and moist oral mucous membranes HEAD & SCALP: norm ocephalic and atraumatic Eye: COMMON NORMALS: PERRL, EOMs intact bilaterally and conjunctivae normal CONJUNCTIVA: Yes conjunctivae normal PUPIL: Yes PERRL Neck/C-Spine: COMMON NORMALS: full ROM GENERAL: Yes normal visual inspection and Yes trachea midline Chest: COMMONS NORMALS: inspection of chest normal and palpation of chest normal Resp: COMMON NORMALS: normal respiratory effort, no retractions, no use of accessory muscles and clear to auscultation bilaterally EFFORT & INSPECTION: Yes able to speak in complete sentences, Yes symmetric chest movement and No tachypneic AUSCULTATION: clear to auscultation bilaterally Cardio: COMMON NORMALS: regular rhythm, S1 normal heart sound, S2 normal heart sound and no murmurs RATE: bradycardic RHYTHM: regular rhythm HEART SOUNDS: S1 normal and S2 normal GI: COMMON NORMALS: normal to inspection, nondistended, normoactive bowel sounds, soft to palpation and non-tender INSPECTION: Yes central obesity PALPATION: Yes soft : BLADDER/KIDNEY EXAM: No catheter in place Extremity: COMMON NORMALS: normal to inspection, full ROM and no clubbing, cyanosis or edema; negative for no pedal edema NARRATIVE EXTREMITY EXAM: -clean dressing, no hematoma on inspection of R wrist, R inguinal areas Neuro: COMMON NORMALS: oriented x3, moves all extremities, no focal motor deficits and no sensory deficits noted Psych: COMMON NORMALS: mental status grossly normal, thought process normal, cooperative, affect normal and speech normal SPEECH: Yes normal speech THOUGHT PROCESS: normal thought process Skin: COMMON NORMALS: no rashes or lesions noted, no jaundice, no petechiae and no mottling GENERAL SKIN EXAM: no rashes or lesions noted Urinary Catheter Management^: Ocsta: Cath Placed During This Visit: yes, but has since been removed by the nurse Reason for Continuing Indwelling Catheter: Other Urinary Catheter Date of Insertion: 09/06/19 Urinary Catheter Time of Insertion: 13: Date Urinary Catheter Removed: 09/07/19 Time Urinary Catheter Discontinued: 13:08 Data : 09/07/19 03:30 09/08/19 03:40 A&P Assessment and plan (1) ACS (acute coronary syndrome): -Presented with complaints of chest pain and shortness of breath, STEMI alert called en route to the ER -Recent admission for chest pain, had stress testing done with noted small sathya- infarct ischemia in RCA/circumflex territory, large size perfusion abnormality of moderate to severe severity of the entire inferior, mild to apical in ferolateral, apical lateral and apical watters with some reversibility in mid inferior, mid to apical inferolateral watters; EKG portion was unremarkable -Evaluated by Dr. Estrada, plan for medical management as patient has pre-existing evidence of NE involving the inferolateral region that is nonviable. s/p cath (09/05) with intervention done (PCI of RCA and balloon angioplasty of proximal and mid diagonal branch) -Loaded with aspirin and Plavix, heparin drip; continue nitrates, statin, beta- gato, Eliquis, off heparin drip -Troponin trend noted, significant delta change noted -serial ECGs with noted atrial fibrillation, RBBB -Telemetry monitoring -Vital signs stable, continue to monitor -Had echo done during most recent admission showing an ejection fraction of 55%, grade 2 diastolic dysfunction, mild pulmonary hypertension, mild aortic stenosis, mild to moderate mitral regurgitation -has prior hx of CAD Status: Acute Code(s): I24.9 - Acute ischemic heart disease, unspecified (2) Heart failure with preserved ejection fraction: -Noted acute exacerbation of chronic diastolic CHF as evidenced by symptomatic dyspnea, elevated BNP of 8389 -Echo as noted above -Off diuresis due to renal impairment -Continue to monitor I's and O's, daily weight, renal function and electrolytes -cardiac diet as tolerated Status: Acute Qualifiers: Heart failure chronicity: acute on chronic Qualified Code(s): I50.33 - Acute on chronic diastolic (congestive) heart failure Code(s): I50.30 - Unspecified diastolic (congestive) heart failure Additional A&P Information -Morbid obesity: BMI-44 kg/m2 -Recently treated for UTI, with Cipro -IDDM type II; A1c-7.1; Accucheks, ISS -HTN; VSS: on oral antihypertensive regimen -Hyperlipidemia; on statin; lipid panel noted -SOB: screened for influenza due to SOB, negative; CXR-interstitial fibrosis; supplemental oxygen as needed; continue to monitor respiratory status -Chronic atrial fibrillation, on BB; resume Eliquis as off heparin drip; intermittently bradycardic, during last admission was noted to have atrial fibrillation with slow VR -CKD stage 3-4, 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 Time Spent in Patient Care: 16 - 35 minutes (>than 50% of time spent in counselling and/or direct pt care on unit) . Coding Level of Care Code Acute Deadener for g Fwd Exam Comprehensive Diagnoses ACS (acute coronary syndrome) I24.9 Heart failure with preserved ejection fraction I50.33 Heart failure chronicity: acute on chronic
--- NOTE | 2019-09-08 09:31 | PC.SOCIAL ---
IMM Update Pg2 of IMM given and explained to patient who verbalized understanding. Copy provided to patient and signed copy placed in chart.
--- NOTE | 2019-09-08 09:51 | PC.CHAP ---
Pastoral Care Encounter/Spiritual Assessment Type of Contact [] Declined bellhop visit [] Patient/Family/Request visit [] Outpatient visit [] Follow-up visit [] Physician referral [] Code/Alert [x] Routine visit [] Staff referral [] Actively dying [] Patient sleeping [] Family support [] [] Out of room [] Palliative care [] [] Receiving care in room [] Pre-surgical visit [] Trauma [] Long length of stay [] ICU visit [] Other: Relational/Emotional Strength [] Patient feels connected with others/family/visitors/staff [] Distress [] Loneliness/isolation [] Abandonment Spirituality of Patient [x] Person of Shira [] Attends Orthodoxy of their Shira [x] Believes in Prayer [] Reads Bible or Mandaeism materials [] There are Spiritual issues to be addressed Transmission And Protection Engineer Interventions [x] Prayer [] Active listening [] Non-anxious presence [] Spiritual/emotional support [] Crisis/trauma care [] Spiritual counseling [] Bereavement support [] Provided bereavement packet [] Provided Bible/devotional materials [] Provided toy/stuffed animal, coloring book to patient or family member [] Provided Communion [] Anointing/[place] [] Salvation [x] Completed spiritual assessment [] Other: Impact on Illness or Injury [] Angry [] Fearful [] Anxious [] Often cries [] Exhaustion [] Unable to work [] Unable to attend religious [] Unable to walk/stand [] Unable to read [] Unable to drive [] Unable to eat/drink [] Unable to sleep [] Unable to be with family [] Patient intubated [] Other: Summary Patient resting well. Time spent with patient 10 min
[2019-09-08 11:21] LABS: Glucose Point of Care 227 mg/dL (70-110)
[2019-09-08] MEDS: sodium chloride 0.9% 500 ML IV (11:40)
[2019-09-08 16:35] LABS: Glucose Point of Care 208 mg/dL (70-110)
[2019-09-08 17:31] LABS: Anion Gap 17.1 (5-19); Blood Urea Nitrogen 47 mg/dL (8-23); Carbon Dioxide 23 mmol/L (22-29); Chloride 96 mmol/L (98-107); Glomerular Filtration Rate 16.1 mL/min (90-130); Glucose 183 mg/dL (65-115); Osmolality Calculated 277 mOsm/kg (285-295); Potassium 4.1 mmol/L (3.5-5.1); Sodium 132 mmol/L (136-145)
--- NOTE | 2019-09-08 18:53 | PC.NURSE ---
PATIENT VOIDED 350ML ONLY THIS SHIFT. BUN AND CREATININE AND URINE OUTPUT NOTIFIED TO DR. PATINO.
--- NOTE | 2019-09-08 19:46 | PM.PN ---
Subjective Subjective: Interval history: Denies chest pain, no bradycardia on the telemetry now. Creatinine has worsened to 2.0. Medications: Reviewed: Yes Medication Review Details: Active Medications Generic Name Dose Route Start Last Admin Trade Name Freq PRN Reason Stop Dose Admin Acetaminophen 650 mg 09/06/19 12:01 Tylenol PO Q6H PRN MILD PAIN Alprazolam 0.25 mg 09/06/19 12:01 Xanax PO TID PRN ANXIETY Apixaban 2.5 mg 09/07/19 18:00 09/08/19 08:20 Eliquis PO 2.5 mg BID PINA Administration Aspirin 81 mg 09/06/19 09:00 09/08/19 08:20 Aspirin Ec PO 81 mg DAILY PINA Administration Atorvastatin Calci um 80 mg 09/05/19 21:00 09/07/19 21:45 Lipitor PO 80 mg BEDTIME PINA Administration Atropine Sulfate 0.5 mg 09/06/19 12:01 Atropine IVP PRN PRN Symptomatic cate cardia Bumetanide 1 mg 09/05/19 20:45 09/08/19 02:18 Bumex IV 1 mg Q12H PINA Administration Bumetanide 2 mg 09/07/19 09:00 09/07/19 09:42 Bumex PO Not Given DAILY PINA Clopidogrel Bisulf ate 75 mg 09/06/19 12:05 09/08/19 08:20 Plavix PO 75 mg DAILY PINA Administration Dextrose 25 ml 09/05/19 20:40 D50w IVP ONCE PRN hypoglycemia prot ocol Protocol Dextrose 50 ml 09/05/19 20:40 D50w IVP PRN PRN hypoglycemia prot ocol Protocol Fentanyl 1 patch 09/05/19 20:45 09/05/19 22:17 Duragesic 50 Mcg Patch TRANSDERMA 1 patch Q72H PINA Administration Gabapentin 100 mg 09/05/19 21:00 09/07/19 21:45 Neurontin PO 100 mg BEDTIME PINA Administration Glucagon 1 mg 09/05/19 20:40 Glucagen IM ONCE PRN Adult Acute Hypog lycemia Prot. Protocol Dextrose 500 mls @ 100 mls /hr 09/05/19 20:40 D5w IV ONCE PRN Adult Acute Hypog lycemia Prot Protocol Insulin Aspart 0 unit 09/06/19 08:00 09/08/19 08:19 Novolog SUBCUT 6 unit TIDWM PINA Administration Protocol Insulin Glargine 12 unit 09/06/19 21:00 09/07/19 21:45 Lantus SUBCUT 12 unit BEDTIME [facility] Administration Isosorbide Mononit rate 30 mg 09/06/19 09:00 09/06/19 08:03 Imdur PO Not Given BID [facility] Levothyroxine Sodi um 50 mcg 09/06/19 09:00 09/08/19 08:20 Synthroid PO 50 mcg DAILY [facility] Administration Magnesium Hydroxid e 30 ml 09/06/19 12:01 Milk Of Magnesia PO DAILY PRN CONSTIPATION Naloxone HCl 0.1 mg 09/06/19 12:01 Narcan IVP Q2M PRN RESPIRATORY RATE < 8/MIN Nifedipine 30 mg 09/07/19 09:00 09/08/19 08:20 Procardia Xl PO 30 mg DAILY [facility] Administration Nitroglycerin 1 inch 09/05/19 20:45 09/08/19 04:35 Nitro-Bid TOPICAL Not Given Q6H [facility] Nitroglycerin 0.4 mg 09/06/19 12:01 Nitrostat SUBLINGUAL Q5M PRN CHEST PAIN Ondansetron HCl 4 mg 09/05/19 20:37 Zofran IVP Q6H PRN NAUSEA AND VOMITI NG Potassium Chloride 10 meq 09/06/19 09:00 09/08/19 08:20 Klor-Con 10 PO 10 meq DAILY [facility] Administration Temazepam 15 mg 09/06/19 12:01 Restoril PO BEDTIME PRN INSOMNIA duloxetine [From Cymbalta] Allergy (Verified 09/05/19 13:48) Unknown prochlorperazine [From Compazine] Allergy (Verified 09/05/19 13:45) ALGY-Anaphylaxis sucralfate [From Carafate] Allergy (Verified 09/05/19 13:48) Unknown trazodone Allergy (Verified 09/05/19 13:48) Unknown zaleplon [From Sonata] Allergy (Verified 09/05/19 13:48) Unknown Vitals/I&O/Wt Last Vital Signs Temp 98.7 F 09/08/19 15:05 Pulse 75 09/08/19 15:05 Resp 17 09/08/19 15:05 BP 125/64 09/08/19 15:05 Pulse Ox 100 09/08/19 15:05 09/08/19 09/08/19 09/08/19 06:59 14:59 22:59 Intake Total 120 / 720 500 / 500 360 / 860 Output Total 350 / 350 Balance 120 / 720 500 / 500 10 / 510 Physical Exam Const: COMMON NORMALS: oriented x3; apparent distress EXAM LIMITATIONS: no altered mental status and no behavioral limitations GENERAL APPEARANCE: cooperative and comfortable ORIENTATION/CONSCIOUSNESS: Yes awake, Yes oriented to person, Yes oriented to place and Yes oriented to time HENMT: COMMON NORMALS: normocephalic HEAD & SCALP: normocephalic Resp: EFFORT & INSPECTION: Yes able to speak in complete sentences (Not able to complete sentences, short of breath) and Yes tachypneic AUSCULTATION: rales bilateral Cardio: COMMON NORMALS: regular rate (Irregularly irregular), S1 normal heart sound and S2 normal heart sound RATE: regular rate (Irregularly irregular) HEART SOUNDS: S1 normal and S2 normal Extremity: OTHER: No bilateral lower extremity edema Neuro: COMMON NORMALS: oriented x3 and CN's II-XII intact bilaterally SENSORIUM/ORIENTATION: Yes oriented to person, Yes oriented to place and Yes oriented to time Psych: COMMON NORMALS: mental status grossly normal Urinary Catheter Management^: José: Cath Placed During This Visit: yes, but has since been removed by the nurse Reason for Continuing Indwelling Catheter: Other Urinary Catheter Date of Insertion: 09/06/19 Urinary Catheter Time of Insertion: 13:27 Date Urinary Catheter Removed: 09/07/19 Time Urinary Catheter Discontinued: 13:08 Data : 09/07/19 03:30 09/08/19 16:50 A&P Assessment and plan (1) ACS (acute coronary syndrome): Status post PCI to mid RCA and balloon angioplasty to diagonal. Continue statin Plavix and apixaban Status: Acute Code(s): I24.9 - Acute ischemic heart disease, unspecified (2) Acute kidney injury superimposed on chronic kidney disease: Slightly worsened 2.0. Continue to monitor, Be contrast induced nephropathy. I will discontinue Bumex now. Status: Acute Code(s): N17.9 - Acute kidney failure, unspecified; N18.9 - Chronic kidney disease, unspecified (3) Heart failure with preserved ejection fraction: Well compensated. Continue medicine Status: Acute Qualifiers: Heart failure chronicity: acute on chronic Qualified Code(s): I50.33 - Acute on chronic diastolic (congestive) heart failure Code(s): I50.30 - Unspecified diastolic (congestive) heart failure (4) Atrial fibrillation by electrocardiogram: Discontinued metoprolol, patient is in A. fib but controlled heart rate. Anticoagulation will continue Status: Acute Code(s): I48.91 - Unspecified atrial fibrillation (5) Aortic stenosis: [id number] aortic stenosis. We'll continue to monitor. Status: Acute Code(s): I35.0 - Nonrheumatic aortic (valve) stenosis (6) Diabetes: As per medicine. Status: Acute Code(s): E11.9 - Type 2 diabetes mellitus without complications Attestations Medical Necessity Statement*: Required continuation hospitalization for worsening of kidney function Coding Level of Care Code Established Pt Acute Rn Labor And Delivery for Chg Fwd Patient Type Established History Expanded Problem Focused Exam Expanded Problem Focused Medical Decision Making Moderate Complexity Diagnoses ACS (acute coronary syndrome) I24.9 Acute kidney injury superimposed on chronic kidney disease N17.9; N18.9 Heart failure with preserved ejection fraction I50.33 Heart failure chronicity: acute on chronic Atrial fibrillation by electrocardiogram I48.91 Aortic stenosis I35.0 Diabetes E11.9
[2019-09-08] MEDS: atorvastatin 40 mg Tablet 80 MG PO (20:10)
[2019-09-08] MEDS: gabapentin 100 mg Capsule PO (20:10)
[2019-09-08] MEDS: acetaminophen 325 mg Tablet 650 MG PO (20:10)
[2019-09-08] MEDS: sodium chloride 0.9% 1,000 ML 75 ML IV (20:11)
[2019-09-08 20:43] LABS: Glucose Point of Care 227 mg/dL (70-110)
[2019-09-08] MEDS: insulin glargine 100 units/1 mL 12 UNIT SUBCUT (21:00)
[2019-09-08] MEDS: fentaNYL 50 mcg Patch 1 PATCH TRANSDERMA (21:00)
[2019-09-09] VITALS (9 sets, daily range): BP systolic 120–141; BP diastolic 49–64; PULSE 61–88; RESP 9–23; TEMP 36.3–37.1; O2SAT 97–100
[2019-09-09 04:59] LABS: Basophils % 0.4 %; Eosinophils # 0.2 10^3/uL (0.0-0.8); Eosinophils % 3.5 %; Hematocrit 22.6 % (37.0-47.0); Hemoglobin 7.1 g/dL (11.5-15.3); Lymphocytes # 1.1 10^3/uL (0.8-4.8); Lymphocytes % 20.8 %; Mean Corpuscular HGB Conc 31.4 g/dL (30.0-36.0); Mean Corpuscular Hemoglobin 30.9 pg (28.0-34.0); Mean Corpuscular Volume 98.3 fL (81-99); Mean Platelet Volume 11.1 fL (7.4-10.4); Monocytes # 0.6 10^3/uL (0.2-0.9); Monocytes % 11.3 %; Neutrophils # 3.5 10^3/uL (1.8-7.7); Neutrophils % 63.6 %; Nucleated Red Blood Cells % 0 %; Platelet Count 165 10^3/cmm (130-400); Red Cell Distribution Width 16.2 % (12.1-15.1); White Blood Count 5.5 10^3/uL (4.0-10.0)
[2019-09-09 05:14] LABS: Anion Gap 19.7 (5-19); Blood Urea Nitrogen 53 mg/dL (8-23); Calcium 8.4 mg/dL (8.5-10.5); Carbon Dioxide 22 mmol/L (22-29); Chloride 100 mmol/L (98-107); Glomerular Filtration Rate 12.1 mL/min (90-130); Glucose 164 mg/dL (65-115); Osmolality Calculated 286 mOsm/kg (285-295); Potassium 4.7 mmol/L (3.5-5.1); Sodium 137 mmol/L (136-145)
[2019-09-09 07:23] LABS: Glucose Point of Care 172 mg/dL (70-110)
[2019-09-09] MEDS: sodium chloride 0.9% 1,000 ML 75 ML IV (08:33)
[2019-09-09] MEDS: aspirin 81 mg EC Tablet PO (08:33)
[2019-09-09] MEDS: clopidogrel 75 mg Tablet PO (08:33)
[2019-09-09] MEDS: NIFEdipine ER (24 hr) 30 mg Tablet PO (08:33)
[2019-09-09] MEDS: levothyroxine 50 mcg Tablet PO (08:33)
[2019-09-09] MEDS: apixaban 5 mg Tablet 2.5 MG PO (08:33)
--- NOTE | 2019-09-09 11:03 | P.PN_ITS ---
Subjective Subjective: Interval history: Noted worsening renal function with creatinine increased from 2.1->3.7, no urine output overnight. Vital signs. Remains on nasal cannula. Patient seen and examined earlier this afternoon, resting comfortably in bed, has been sitting up for most of the morning, no complaints currently, discussed worsening renal function and drop in hemoglobin. Repeat H/H improved to 8.1/27.0 from 7.1/26.7. Patient appears to be oliguric with no urine output documented overnight. With worsening renal function and concern for possible contrast-induced nephropathy will place José catheter for accurate ins and outs. At around 1300 nursing staff informed me that patient was showing some signs of respiratory distress and was noted to have increased lower extremi ty edema; requested that IV fluid be held. Patient then complained of some chest discomfort, EKG ordered. Dr. Estrada present at bedside in place and inch of Nitropaste and dose of Lasix ordered. Case discussed with Dr. Newman and plan is to start on Lasix drip. Seen later in the afternoon and now requiring BiPAP (FiO2-35%), minimal urine in José bag. Medications: Reviewed: Yes Medication Review Details: Active Medications Generic Name Dose Route Start Last Admin Trade Name Freq PRN Reason Stop Dose Admin Acetaminophen 650 mg 09/06/19 12:01 09/08/19 20:10 Tylenol PO 650 mg Q6H PRN Administration MILD PAIN Alprazolam 0.25 mg 09/06/19 12:01 Xanax PO TID PRN ANXIETY Apixaban 2.5 mg 09/07/19 18:00 09/09/19 08:33 Eliquis PO 2.5 mg BID PINA Administration Aspirin 81 mg 09/06/19 09:00 09/09/19 08:33 Aspirin Ec PO 81 mg DAILY PINA Administration Atorvastatin Calci um 80 mg 09/05/19 21:00 09/08/19 20:10 Lipitor PO 80 mg BEDTIME PINA Administration Atropine Sulfate 0.5 mg 09/06/19 12:01 Atropine IVP PRN PRN Symptomatic cate cardia Bumetanide 1 mg 09/05/19 20:45 09/08/19 02:18 Bumex IV 1 mg Q12H PINA Administration Bumetanide 2 mg 09/07/19 09:00 09/07/19 09:42 Bumex PO Not Given DAILY PINA Clopidogrel Bisulf ate 75 mg 09/06/19 12:05 09/09/19 08:33 Plavix PO 75 mg DAILY PINA Administration Dextrose 25 ml 09/05/19 20:40 D50w IVP ONCE PRN hypoglycemia prot ocol Protocol Dextrose 50 ml 09/05/19 20:40 D50w IVP PRN PRN hypoglycemia prot ocol Protocol Fentanyl 1 patch 09/05/19 20:45 09/08/19 21:00 Duragesic 50 Mcg Patch TRANSDERMA 1 patch Q72H PINA Administration Gabapentin 100 mg 09/05/19 21:00 09/08/19 20:10 Neurontin PO 100 mg BEDTIME PINA Administration Glucagon 1 mg 09/05/19 20:40 Glucagen IM ONCE PRN Adult Acute Hypog lycemia Prot. Protocol Dextrose 500 mls @ 100 mls /hr 09/05/19 20:40 D5w IV ONCE PRN Adult Acute Hypog lycemia Prot Protocol Sodium Chloride 1,000 mls @ 75 ml s/hr 09/08/19 19:00 09/09/19 08:33 Sodium Chloride 0.9% IV 75 mls/hr .[id number] PINA Administration Insulin Aspart 0 unit 09/06/19 08:00 09/09/19 08:33 Novolog SUBCUT 4 unit TIDWM [facility] Administration Protocol Insulin Glargine 12 unit 09/06/19 21:00 09/08/19 21:00 Lantus SUBCUT 12 unit BEDTIME PINA Administration Isosorbide Mononit rate 30 mg 09/06/19 09:00 09/06/19 08:03 Imdur PO Not Given BID [facility] Levothyroxine Sodi um 50 mcg 09/06/19 09:00 09/09/19 08:33 Synthroid PO 50 mcg DAILY [facility] Administration Magnesium Hydroxid e 30 ml 09/06/19 12:01 Milk Of Magnesia PO DAILY PRN CONSTIPATION Naloxone HCl 0.1 mg 09/06/19 12:01 Narcan IVP Q2M PRN RESPIRATORY RATE < 8/MIN Nifedipine 30 mg 09/07/19 09:00 09/09/19 08:33 Procardia Xl PO 30 mg DAILY [facility] Administration Nitroglycerin 1 inch 09/05/19 20:45 09/08/19 04:35 Nitro-Bid TOPICAL Not Given Q6H PINA Nitroglycerin 0.4 mg 09/06/19 12:01 Nitrostat SUBLINGUAL Q5M PRN CHEST PAIN Ondansetron HCl 4 mg 09/05/19 20:37 Zofran IVP Q6H PRN NAUSEA AND VOMITI NG Potassium Chloride 10 meq 09/06/19 09:00 09/09/19 08:33 Klor-Con 10 PO 10 meq DAILY PINA Administration Temazepam 15 mg 09/06/19 12:01 Restoril PO BEDTIME PRN INSOMNIA duloxetine [From Cymbalta] Allergy (Verified 09/05/19 13:48) Unknown prochlorperazine [From Compazine] Allergy (Verified 09/05/19 13:45) ALGY-Anaphylaxis sucralfate [From Carafate] Allergy (Verified 09/05/19 13:48) Unknown trazodone Allergy (Verified 09/05/19 13:48) Unknown zaleplon [From Sonata] Allergy (Verified 09/05/19 13:48) Unknown Vitals/I&O/Wt Last Vital Signs Temp 98.7 F 09/09/19 07:19 Pulse 62 09/09/19 07:19 Resp 10 L 09/09/19 07:19 BP 120/49 09/09/19 07:19 Pulse Ox 100 09/09/19 07:19 09/08/19 09/09/19 09/09/19 22:59 06:59 14:59 Intake Total 480 / 980 420 / 1400 1287.5 / 1287.5 Output Total 350 / 350 200 / 200 Balance 130 / 630 420 / 1050 1087.5 / 1087.5 Physical Exam Const: COMMON NORMALS: no apparent distress and oriented x3 GENERAL APPEARANCE: cooperative and comfortable NUTRITIONAL APPEARANCE: obese morbidly obese ORIENTATION/CONSCIOUSNESS: Yes awake HENMT: COMMON NORMALS: normocephalic, head/scalp atraumatic, hearing grossly normal bilaterally and moist oral mucous membranes HEAD & SCALP: normocephalic and atraumatic Eye: COMMON NORMALS: PERRL, EOMs intact bilaterally and conjunctivae normal CONJUNCTIVA: Yes conjunctivae normal PUPIL: Yes PERRL Neck/C-Spine: COMMON NORMALS: full ROM GENERAL: Yes normal visual inspection and Yes trachea midline Chest: COMMONS NORMALS: inspection of chest normal and palpation of chest normal Resp: COMMON NORMALS: normal respiratory effort, no retractions, no use of accessory muscles and clear to auscultation bilaterally EFFORT & INSPECTION: Yes able to speak in complete sentences, Yes symmetric chest movement and No tachypneic AUSCULTATION: clear to auscultation bilaterally Cardio: COMMON NORMALS: regular rate, regular rhythm, S1 normal heart sound, S2 normal heart sound and no murmurs RATE: regular rate RHYTHM: regular rhythm HEART SOUNDS: S1 normal and S2 normal GI: COMMON NORMALS: normal to inspection, nondistended, normoactive bowel sounds, soft to palpation and non-tender INSPECTION: Yes central obesity PALPATION: Yes soft : BLADDER/KIDNEY EXAM: No catheter in place Extremity: COMMON NORMALS: normal to inspection, full ROM and no clubbing, cyanosis or edema; negative for no pedal edema NARRATIVE EXTREMITY EXAM: -clean dressing, no hematoma on inspection of R wrist, R inguinal areas Neuro: COMMON NORMALS: oriented x3, moves all extremities, no focal motor deficits and no sensory deficits noted Psych: COMMON NORMALS: mental status grossly normal, thought process normal, cooperative, affect normal and speech normal SPEECH: Yes normal speech THOUGHT PROCESS: normal thought process Skin: COMMON NORMALS: no rashes or lesions noted, no jaundice, no petechiae and no mottling GENERAL SKIN EXAM: no rashes or lesions noted Urinary Catheter Management^: José: Cath Placed During This Visit: yes, but has since been removed by the nurse Reason for Continuing Indwelling Catheter: Other Urinary Catheter Date of Insertion: 09/06/19 Urinary Catheter Time of Insertion: 13:27 Date Urinary Catheter Removed: 09/07/19 Time Urinary Catheter Discontinued: 13:08 Data : 09/09/19 14:06 09/09/19 03:30 A&P Assessment and plan (1) Acute kidney injury superimposed on chronic kidney disease: -CKD stage 3-4, 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 Newman appreciated Status: Acute Code(s): N17.9 - Acute kidney failure, unspecified; N18.9 - Chronic kidney disease, un specified (2) ACS (acute coronary syndrome): -Presented with complaints of chest pain and shortness of breath, STEMI alert called en route to the ER -Recent admission for chest pain, had stress testing done with noted small sathya- infarct ischemia in RCA/circumflex territory, large size perfusion abnormality of moderate to severe severity of the entire inferior, mild to apical inferolateral, apical lateral and apical watters with some reversibility in mid inferior, mid to apical inferolateral watters; EKG portion was unremarkable -Evaluated by Dr. Estrada, plan for medical management as patient has pre-existing evidence of [place] involving the inferolateral region that is nonviable. s/p cath (09/05) with intervention done (PCI of RCA and balloon angioplasty of proximal and mid diagonal branch) -Loaded with aspirin and Plavix, heparin drip; continue nitrates, statin, beta- gato, Eliquis, off heparin drip -Troponin trend noted, significant delta change noted -serial ECGs with noted atrial fibrillation, RBBB -Telemetry monitoring -Vital signs stable, continue to monitor -Had echo done during most recent admission showing an ejection fraction of 55%, grade 2 diastolic dysfunction, mild pulmonary hypertension, mild aortic stenosis, mild to moderate mitral regurgitation -has prior hx of CAD Status: Acute Code(s): I24.9 - Acute ischemic heart disease, unspecified (3) Heart failure with preserved ejection fraction: -Noted acute exacerbation of chronic diastolic CHF as evidenced by symptomatic dyspnea, elevated BNP of 8389 -Echo as noted above -Off diuresis due to renal impairment -Continue to monitor I's and O's, daily weight, renal function and electrolytes -cardiac diet as tolerated -Developed flash pulmonary edema while on IV fluid hydration given secondary to worsening renal impairment. IV fluid discontinued and is currently requiring BiPAP Status: Acute Qualifiers: Heart failure chronicity: acute on chronic Qualified Code(s): I50.33 - Acute on chronic diastolic (congestive) heart failure Code(s): I50.30 - Unspecified diastolic (congestive) heart failure Additional A&P Information -Morbid obesity: BMI-44 kg/m2 -Recently treated for UTI, with Cipro -IDDM type II; A1c-7.1; Accucheks, ISS -HTN; VSS: on oral antihypertensive regimen -Hyperlipidemia; on statin; lipid panel noted -SOB: screened for influenza due to SOB, negative; CXR-interstitial fibrosis; supplemental oxygen as needed; continue to monitor respiratory status -Chronic atrial fibrillation, on BB, Eliquis; off heparin drip; intermittently bradycardic, during last admission was noted to have atrial fibrillation with slow VR -Hypothyroidism; on Levothyroxine -Acute on chronic normocytic anemia; baseline Hg 9-10; iron panel ordered; continue to monitor H/H. Has had GI workup done with colonoscopy (11/2014) unremarkable other than diverticuli and 5 mm sessile polyp in sigmoid colon (pathology-benign mucosa with edema and surface hyperplastic change, no malignancy). Likely anemia of chronic disease -hx of seronegative RA and OA -DVT ppx not needed as on Eliquis -Dispo: home with continued HH services ([facility]) -Code status: FULL code Attestations Medical Necessity Statement*: Patient requires hospitalization for continued management of acutely worsening renal function and oliguria. Time Spent in Patient Care: 16 - 35 minutes (>than 50% of time spent in cou nselling and/or direct pt care on unit) . Coding Level of Care Code Acute [facility] for [place] Fwd Exam Comprehensive Diagnoses Acute kidney injury superimposed on chronic kidney disease N17.9; N18.9 ACS (acute coronary syndrome) I24.9 Heart failure with preserved ejection fraction I50.33 Heart failure chronicity: acute on chronic
[2019-09-09 11:52] LABS: Glucose Point of Care 255 mg/dL (70-110)
--- NOTE | 2019-09-09 13:23 | PC.NURSE ---
DR. PATINO AND DR. SIFUENTES NOTIFIED OF PATIENT HAVING SLIGHT CHEST DISCOMFORT WELL FEELING SHORT OF BREATH. UPON ASSESSMENT PATIENT LUNG SOUNDS NOTED TO HAVE FINE CRACKLES IN THE BILATERAL BASES AND EDEMA HAS SLIGHTLY WORSENED FROM TRACE TO 1+PITTING EDEMA. BOTH PHYSICIANS NOTIFIED. DR NY ALSO NOTIFIED DUE TO FACETIME VISIT DURING THIS EPISODE.
--- NOTE | 2019-09-09 13:27 | PM.CONSULT ---
Providers/Reason For Consult Consulting Physican/Specialty*: telenephrology- matthew chan md Reason for Consult*: FARRUKH Attending Physician: Shoshana Patel MD Primary Care Provider: Betsy Nuno DO History of Present Illness History of Present Illness Fantasma Montalvo is a 68 year old female w/ dm, diastolic dysfunction, a fib, hypothyroidism, obesity. recent admission for cardiac disease and she has ckd stage 3b- b/l cr approx 1.9 mg/dl. pt presented on 09/05/19 w/ STEMI and cr approx 1.4 went down to 1.2 and then she had a cardiac cath w/ stent. since then cr has been rising to 3.7 mg/dl today and she is now sob and having cp. renal was called to consult. Review of Systems General: Reports: 10 or more systems reviewed and unremarkable except in HPI and below Narrative: sob, cp, weak, edema, dec uop. no visual changes. Meds/Allergies Home Medications and Allergies Home Medications Medication Instructions Recorded Confirmed Type bumetanide 2 mg PO DAILY 08/20/19 09/05/19 History fentanyl 50 mcg TOPICAL Q72H 08/20/19 09/05/19 History gabapentin 100 mg PO BEDTIME 08/20/19 09/05/19 History glipizide 10 mg PO DAILY 08/20/19 09/05/19 History insulin aspart U-100 [Novolog See Protocol SUBCUT AC 08/20/19 09/05/19 History Flexpen U-100 Insulin] levothyroxine 50 mcg PO DAILY 08/20/19 09/05/19 History metoprolol tartrate 50 mg PO BID 08/20/19 09/05/19 History potassium chloride 10 meq PO DAILY 08/20/19 09/05/19 History rosuvastatin 20 mg PO BEDTIME 08/20/19 09/05/19 History sertraline 25 mg PO DAILY 08/20/19 09/05/19 History apixaban [Eliquis] 2.5 mg PO BID #30 tab 08/23/19 09/05/19 Rx aspirin 81 mg PO DAILY #30 tab 08/23/19 09/05/19 Rx isosorbide mononitrate 30 mg PO BID #0 tab 08/23/19 09/05/19 Rx insulin glargine [Lantus Solostar 12 unit SUBCUT DAILY 09/05/19 09/05/19 History U-100 Insulin] nifedipine 30 mg PO DAILY 09/05/19 09/05/19 History ondansetron HCl [Zofran] 4 mg PO BID PRN 09/05/19 09/05/19 History Allergies Allergy/AdvReac Type Severity Reaction Status Date / Time duloxetine [From Cymbalta] Allergy Unknown Verified 09/05/19 13:48 prochlorperazine Allergy ALGY-Anaphy Verified 09/05/19 13:45 [From Compazine] laxis sucralfate [From Carafate] Allergy Unknown Verified 09/05/19 13:48 trazodone Allergy Unknown Verified 09/05/19 13:48 zaleplon [From Sonata] Allergy Unknown Verified 09/05/19 13:48 Current Medications Current Medications Generic Name Dose Route Start Last Admin Trade Name Freq PRN Reason Stop Dose Admin Acetaminophen 650 mg 09/06/19 12:01 09/08/19 20:10 Tylenol PO 650 mg Q6H PRN Administration MILD PAIN Atorvastatin Calcium 80 mg 09/05/19 21:00 09/08/19 20:10 Lipitor PO 80 mg BEDTIME PINA Administration Bumetanide 1 mg 09/05/19 20:45 09/08/19 02:18 Bumex IV 1 mg Q12H PINA Administration Bumetanide 2 mg 09/07/19 09:00 09/07/19 09:42 Bumex PO Not Given DAILY PINA Clopidogrel Bisulfate 75 mg 09/06/19 12:05 09/09/19 08:33 Plavix PO 75 mg DAILY PINA Administration Fentanyl 1 patch 09/05/19 20:45 09/08/19 21:00 Duragesic 50 Mcg Patch TRANSDERMA 1 patch Q72H PINA Administration Gabapentin 100 mg 09/05/19 21:00 09/08/19 20:10 Neurontin PO 100 mg BEDTIME PINA Administration Sodium Chloride 1,000 mls @ 75 mls/hr 09/08/19 19:00 09/09/19 08:33 Sodium Chloride 0.9% IV 75 mls/hr .[id number] PINA Administration Insulin Aspart 0 unit 09/06/19 08:00 09/09/19 13:05 Novolog SUBCUT 1 unit TIDWM PINA Administration Protocol Insulin Glargine 12 unit 09/06/19 21:00 09/08/19 21:00 Lantus SUBCUT 12 unit BEDTIME PINA Administration Isosorbide Mononitrate 30 mg 09/06/19 09:00 09/06/19 08:03 Imdur PO Not Given BID PINA Levothyroxine Sodium 50 mcg 09/06/19 09:00 09/09/19 08:33 Synthroid PO 50 mcg DAILY PINA Administration Nifedipine 30 mg 09/07/19 09:00 09/09/19 08:33 Procardia Xl PO 30 mg DAILY PINA Administration Potassium Chloride 10 meq 09/06/19 09:00 09/09/19 08:33 Klor-Con 10 PO 10 meq DAILY PINA Administration PFSH Acute PFSH: Medical History Adverse drug reaction Angina pectoris Aortic stenosis Atrial fibrillation by electrocardiogram CAD (coronary artery disease) Cellulitis CHF (congestive heart failure) Dental caries Diabetes DJD (degenerative joint disease) Fibula fracture Gastroenteritis GERD (gastroesophageal reflux disease) HTN (hypertension) Hypercholesterolemia Hyperlipidemia Radius fracture Renal failure Rhabdomyolysis Tibia fracture UTI (urinary tract infection) Vertigo Surgical History History of cardiac catheterization History of hernia repair History of hip surgery History of hysterectomy History of knee surgery History of sinus surgery History of tonsillectomy History of umbilical hernia repair Family History Other Diabetes Stroke Denies family history of CAD (coronary artery disease) Clotting disorder Dementia Chronic kidney disease (CKD) Social History Smoking and tobacco status: never smoked Quit status (tobacco): has quit using tobacco Former quit date comment: Smoking in her 20s Alcohol intake: never Caregiver/support person: Yes (Home health services Friday) Lives independently: Yes Housing: House Vitals/I&O/Wt Last Vital Signs Temp 97.6 F 09/09/19 11:47 Pulse 70 09/09/19 11:47 Resp 17 09/09/19 11:47 BP 123/60 09/09/19 11:47 Pulse Ox 97 09/09/19 11:47 09/08/19 09/09/19 09/09/19 22:59 06:59 14:59 Intake Total 480 / 980 420 / 1400 1647.5 / 1647.5 Output Total 350 / 350 200 / 200 Balance 130 / 630 420 / 1050 1447.5 / 1447.5 Physical Exam Narrative: EXAM NARRATIVE: obese female in bed uncomfortable and SOB. 'vs noted heent- nc/at, eomi, anicteric neck obese, supple, can not lay health advocate jvp lung bi basalar crackles heart irreg irreg w/ STEPH abd- soft, nt, nd. +BS ext 1+ b/l edema neuro- a,a, o x 3 mood -anxious Urinary Catheter Management^: José: Cath Placed During This Visit: yes, but has since been removed by the nurse Reason for Continuing Indwelling Catheter: Other Urinary Catheter Date of Insertion: 09/09/19 Urinary Catheter Time of Insertion: 11:31 Date Urinary Catheter Removed: 09/07/19 Time Urinary Catheter Discontinued: 13:08 Data Labs: Other Labs: Laboratory Results - last 24 hr 09/08/19 09/08/19 09/08/19 16:17 16:50 20:35 WBC RBC Hgb Hct MCV MCH MCHC RDW Plt Count MPV Neut % (Auto) Lymph % (Auto) [place] % (Auto) Eos % (Auto) Baso % (Auto) Neut # (Auto) Lymph # (Auto) [place] # (Auto) Eos # (Auto) Baso # (Auto) Nucleated RBC % (a uto) Nucleated RBCs # Sodium 132 L Potassium 4.1 Chloride 96 L Carbon Dioxide 23 Anion Gap 17.1 BUN 47 H Creatinine 2.9 H GFR Calculation 16.1 L Glucose 183 H POC Glucose 208 227 Calculated Osmolal ity 277 L Calcium 9.0 09/09/19 09/09/19 09/09/19 03:30 03:30 07:15 WBC 5.5 RBC 2.30 L Hgb 7.1 L Hct 22.6 L MCV 98.3 MCH 30.9 MCHC 31.4 RDW 16.2 H Plt Count 165 MPV 11.1 H Neut % (Auto) 63.6 Lymph % (Auto) 20.8 [place] % (Auto) 11.3 Eos % (Auto) 3.5 Baso % (Auto) 0.4 Neut # (Auto) 3.5 Lymph # (Auto) 1.1 [place] # (Auto) 0.6 Eos # (Auto) 0.2 Baso # (Auto) 0.0 Nucleated RBC % (a uto) 0 Nucleated RBCs # 0.0 Sodium 137 Potassium 4.7 Chloride 100 Carbon Dioxide 22 Anion Gap 19.7 H BUN 53 H Creatinine 3.7 H GFR Calculation 12.1 L Glucose 164 H POC Glucose 172 Calculated Osmolal ity 286 Calcium 8.4 L 09/09/19 11:49 WBC RBC Hgb Hct MCV MCH MCHC RDW Plt Count MPV Neut % (Auto) Lymph % (Auto) [place] % (Auto) Eos % (Auto) Baso % (Auto) Neut # (Auto) Lymph # (Auto) [place] # (Auto) Eos # (Auto) Baso # (Auto) Nucleated RBC % (a uto) Nucleated RBCs # Sodium Potassium Chloride Carbon Dioxide Anion Gap BUN Creatinine GFR Calculation Glucose POC Glucose 255 Calculated Osmolal ity Calcium A&P Additional A&P Information 68 yr old female 1. AMI- s/p cardiac cath and stent 2. CKD stage 3b- b/l cr likely approx 1.8- 1.9 mg/dl from obesity, dm, crs, htn 3. FARRUKH- likely LARRY in an obese DM -as sob -rec: check u/a, ur pr, cr, ur na, ur eos renal us -start a lasix drip monitor in and out and daily weights 4. anemia evl- check spep and upep 5. DM- hgb a1c of 7.1 is well controlled. maybe aim for a little better control. Consult Attestations Medical Necessity Statement: FARRUKH, AMI Time Spent in Patient Care: Greater than 35 minutes Coding Level of Care Code Acute Chilling Hood Operator for Kendall Mckeon
--- NOTE | 2019-09-09 13:29 | ECG_ITS ---
Measurements Intervals [place] Rate: 85 P: -5 ME: 157 QRS: -9 QRSD: 36 T: -33 QT: 283 QTc: 337 SINUS RHYTHM WITH FIRST DEGREE AV BLOCK RIGHT ATRIAL ENLARGEMENT LEFT ATRIAL ENLARGEMENT LOW QRS VOLTAGE RIGHT BUNDLE BRANCH BLOCK MARKED ST ELEVATION, CONSIDER INFEROLATERAL INJURY ACUTE MT Compared to ECG 09/06/2019 02:48:44 Low QRS voltage now present Myocardial infarct finding now present ST (T wave) deviation now present Electronically Signed On 09-09-2019 21:20:32 CDT by Patricia Morelos M.D. [email or web address]
--- NOTE | 2019-09-09 13:41 | US_ITS ---
WS: [id number] RENAL ULTRASOUND Urinary bladder ultrasound HISTORY: mariely COMPARISON: None available. TECHNIQUE: 2-D and color Doppler imaging of the kidney submitted. Right kidney: 9.0 cm x 5.2 cm x 3.8 cm. Limited evaluation of the RIGHT kidney due to body habitus. Corticomedullary junction appears normal. No obstruction. Left kidney: 10.3 cm x 5.6 cm x 5.8 cm. Normal echogenicity with no hydronephrosis or mass. Aorta: Normal. Urinary Bladder: Nondistended. US/US renal BI with bladder IMPRESSION: Normal renal ultrasound. Nondistended urinary bladder.
[2019-09-09] MEDS: FUROsemide 10 mg/mL SDV 4mL 40 MG IVP (13:49)
[2019-09-09] MEDS: FUROsemide 100 MG in sodium chloride 0.9% 40 ML IV ×2 (14:03→23:14)
[2019-09-09] MEDS: nitroglycerin 1 gm/inch oint Pkt 1 INCH TOPICAL ×2 (14:03→20:16)
[2019-09-09 14:44] LABS: Hemoglobin 8.1 g/dL (11.5-15.3)
[2019-09-09 14:57] LABS: Bilirubin Urine Neg (NEGATIVE); Blood Urine 3+ (Negative); Glucose Urine UA 1+ (Normal); Ketones Urine Negative (Negative); Leukocyte Esterase Urine Negative (Negative); Nitrate Urine Negative (Negative); Protein Urine 1+ (Negative); Urine Appearance SL Hazy (CLEAR); Urine Color Yellow (Yellow); Urobilinogen Urine Norm (Negative); pH Urine 5 (5-7)
[2019-09-09 14:58] LABS: Amorphous Sediment Urine TRACE; Bacteria Urine 1+; Hyaline Casts Urine 0-4; RBC Urine 0-4 /hpf (0-2); Squamous Epithelial Cell Urine 0-4 (0-5)
[2019-09-09 14:59] LABS: Add Urine Culture? No
[2019-09-09 15:05] LABS: Creatine Phosphokinase 111 U/L (26-192)
[2019-09-09 15:08] LABS: Potassium, Radom Urine 52 mmol/L; Urine Random Chloride 41 mmol/L; Urine Random Sodium 43 mmol/L
--- NOTE | 2019-09-09 15:16 | PC.NURSE ---
PATIENT SHORTNESS OF BREATH AND CHEST DISCOMFORT WORSENED. DR. SIFUENTES CAME TO BEDSIDE TO EVALUATE PATIENT. NOTED HER TO HAVE FLASH PULMONARY EDEMA. LASIX GTT STARTED PER NEPHROLOGY ORDER, NITROPASTE APPLIED TO CHEST AND BIPAP ORDERED PER DOCTOR MARIA. PATIENT NOW RESTING COMFORTABLY AND IS BREATHING EASIER. CHEST DISCOMFORT GONE. WILL CONTINUE TO MONITOR.
[2019-09-09 15:24] LABS: Hepatitis B Surface Antigen. Non-Reactive (Nonreactive)
[2019-09-09 16:04] LABS: Hepatitis C Virus Antibody Non-Reactive (Nonreactive)
[2019-09-09 16:35] LABS: Glucose Point of Care 228 mg/dL (70-110)
[2019-09-09 19:21] LABS: Alanine Aminotransferase 6 U/L (0-33); Albumin Level 3.3 g/dL (3.5-5.2); Alkaline Phosphatase 91 IU/L (35-105); Anion Gap 18.8 (5-19); Aspartate Amino Transferase 11 U/L (0-32); Blood Urea Nitrogen 65 mg/dL (8-23); Carbon Dioxide 22 mmol/L (22-29); Chloride 100 mmol/L (98-107); Glomerular Filtration Rate 11.4 mL/min (90-130); Glucose 220 mg/dL (65-115); Osmolality Calculated 288 mOsm/kg (285-295); Potassium 4.8 mmol/L (3.5-5.1); Sodium 136 mmol/L (136-145); Total Bilirubin 0.6 mg/dL (0.15-1.2); Total Protein 6.3 g/dL (6.6-8.7)
--- NOTE | 2019-09-09 19:57 | P.PN_ITS ---
Subjective Subjective: Interval history: Patient had episode of flash pulmonary edema this morning. Treated with IV Lasix and BiPAP. Denies Significant chest pain. Creatinine has worsened. Medications: Reviewed: Yes Medication Review Details: Active Medications Generic Name Dose Route Start Last Admin Trade Name Freq PRN Reason Stop Dose Admin Acetaminophen 650 mg 09/06/19 12:01 09/08/19 20:10 Tylenol PO 650 mg Q6H PRN Administration MILD PAIN Alprazolam 0.25 mg 09/06/19 12:01 Xanax PO TID PRN ANXIETY Apixaban 2.5 mg 09/07/19 18:00 09/09/19 08:33 Eliquis PO 2.5 mg BID PINA Administration Aspirin 81 mg 09/06/19 09:00 09/09/19 08:33 Aspirin Ec PO 81 mg DAILY PINA Administration Atorvastatin Calci um 80 mg 09/05/19 21:00 09/08/19 20:10 Lipitor PO 80 mg BEDTIME PINA Administration Atropine Sulfate 0.5 mg 09/06/19 12:01 Atropine IVP PRN PRN Symptomatic cate cardia Bumetanide 1 mg 09/05/19 20:45 09/08/19 02:18 Bumex IV 1 mg Q12H PINA Administration Bumetanide 2 mg 09/07/19 09:00 09/07/19 09:42 Bumex PO Not Given DAILY PINA Clopidogrel Bisulf ate 75 mg 09/06/19 12:05 09/09/19 08:33 Plavix PO 75 mg DAILY PINA Administration Dextrose 25 ml 09/05/19 20:40 D50w IVP ONCE PRN hypoglycemia prot ocol Protocol Dextrose 50 ml 09/05/19 20:40 D50w IVP PRN PRN hypoglycemia prot ocol Protocol Fentanyl 1 patch 09/05/19 20:45 09/08/19 21:00 Duragesic 50 Mcg Patch TRANSDERMA 1 patch Q72H PINA Administration Gabapentin 100 mg 09/05/19 21:00 09/08/19 20:10 Neurontin PO 100 mg BEDTIME PINA Administration Glucagon 1 mg 09/05/19 20:40 Glucagen IM ONCE PRN Adult Acute Hypog lycemia Prot. Protocol Dextrose 500 mls @ 100 mls /hr 09/05/19 20:40 D5w IV ONCE PRN Adult Acute Hypog lycemia Prot Protocol Sodium Chloride 1,000 mls @ 75 ml s/hr 09/08/19 19:00 09/09/19 08:33 Sodium Chloride 0.9% IV 75 mls/hr .[id number] PINA Administration Insulin Aspart 0 unit 09/06/19 08:00 09/09/19 08:33 Novolog SUBCUT 4 unit TIDWM PINA Administration Protocol Insulin Glargine 12 unit 09/06/19 21:00 09/08/19 21:00 Lantus SUBCUT 12 unit BEDTIME [facility] Administration Isosorbide Mononit rate 30 mg 09/06/19 09:00 09/06/19 08:03 Imdur PO Not Given BID [facility] Levothyroxine Sodi um 50 mcg 09/06/19 09:00 09/09/19 08:33 Synthroid PO 50 mcg DAILY [facility] Administration Magnesium Hydroxid e 30 ml 09/06/19 12:01 Milk Of Magnesia PO DAILY PRN CONSTIPATION Naloxone HCl 0.1 mg 09/06/19 12:01 Narcan IVP Q2M PRN RESPIRATORY RATE < 8/MIN Nifedipine 30 mg 09/07/19 09:00 09/09/19 08:33 Procardia Xl PO 30 mg DAILY [facility] Administration Nitroglycerin 1 inch 09/05/19 20:45 09/08/19 04:35 Nitro-Bid TOPICAL Not Given Q6H [facility] Nitroglycerin 0.4 mg 09/06/19 12:01 Nitrostat SUBLINGUAL Q5M PRN CHEST PAIN Ondansetron HCl 4 mg 09/05/19 20:37 Zofran IVP Q6H PRN NAUSEA AND VOMITI NG Potassium Chloride 10 meq 09/06/19 09:00 09/09/19 08:33 Klor-Con 10 PO 10 meq DAILY [facility] Administration Temazepam 15 mg 09/06/19 12:01 Restoril PO BEDTIME PRN INSOMNIA duloxetine [From Cymbalta] Allergy (Verified 09/05/19 13:48) Unknown prochlorperazine [From Compazine] Allergy (Verified 09/05/19 13:45) ALGY-Anaphylaxis sucralfate [From Carafate] Allergy (Verified 09/05/19 13:48) Unknown trazodone Allergy (Verified 09/05/19 13:48) Unknown zaleplon [From Sonata] Allergy (Verified 09/05/19 13:48) Unknown Vitals/I&O/Wt Last Vital Signs Temp 97.4 F L 09/09/19 15:38 Pulse 88 09/09/19 17:46 Resp 23 H 09/09/19 15:38 BP 123/61 09/09/19 15:38 Pulse Ox 100 09/09/19 17:46 09/09/19 09/09/19 09/09/19 06:59 14:59 22:59 Intake Total 420 / 1400 1647.5 / 1647.5 251.083 / 1898.583 Output Total 200 / 200 200 / 400 Balance 420 / 1050 1447.5 / 1447.5 51.083 / 1498.583 Physical Exam Const: COMMON NORMALS: oriented x3; apparent distress EXAM LIMITATIONS: no altered mental status and no behavioral limitations GENERAL APPEARANCE: cooperative and comfortable ORIENTATION/CONSCIOUSNESS: Yes awake, Yes oriented to person, Yes oriented to place and Yes oriented to time HENMT: COMMON NORMALS: normocephalic HEAD & SCALP: normocephalic Resp: EFFORT & INSPECTION: Yes able to speak in complete sentences (Not able to complete sentences, short of breath) and Yes tachypneic AUSCULTATION: crackles and rales bilateral Cardio: COMMON NORMALS: regular rate (Irregularly irregular), S1 normal heart sound and S2 normal heart sound RATE: regular rate (Irregularly irregular) HEART SOUNDS: S1 normal and S2 normal Extremity: OTHER: No bilateral lower extremity edema Neuro: COMMON NORMALS: oriented x3 and CN's II-XII intact bilaterally SENSORIUM/ORIENTATION: Yes oriented to person, Yes oriented to place and Yes oriented to time Psych: COMMON NORMALS: mental status grossly normal Urinary Catheter Management^: José: Cath Placed During This Visit: yes, but has since been removed by the nurse Reason for Continuing Indwelling Catheter: Other Urinary Catheter Date of Insertion: 09/09/19 Urinary Catheter Time of Insertion: 11:31 Date Urinary Catheter Removed: 09/07/19 Time Urinary Catheter Discontinued: 13:08 Data : 09/09/19 14:06 09/09/19 18:47 A&P Assessment and plan (1) ACS (acute coronary syndrome): Status post PCI to mid RCA and balloon angioplasty to diagonal. Continue statin Plavix, Apixaban and aspirin on hold due to anemia Status: Acute Code(s): I24.9 - Acute ischemic heart disease, unspecified (2) Acute kidney injury superimposed on chronic kidney disease: Most likely acute on chronic renal failure with contrast induced nephropathy. Forced diuresis atempted Status: Acute Code(s): N17.9 - Acute kidney failure, unspecified; N18.9 - Chronic kidney disease, unspecified (3) Heart failure with preserved ejection fraction: Acute pulmonary edema. Started on BiPAP and diuretics along with nitroglycerin. Continue to monitor Status: Acute Qualifiers: Heart failure chronicity: acute on chronic Qualified Code(s): I50.33 - Acute on chronic diastolic (congestive) heart failure Code(s): I50.30 - Unspecified diastolic (congestive) heart failure (4) Atrial fibrillation by electrocardiogram: Rate controlled, due to anemia anticoagulation was discontinued Status: Acute Code(s): I48.91 - Unspecified atrial fibrillation (5) Aortic stenosis: [id number] aortic stenosis. We'll continue to monitor. Status: Acute Code(s): I35.0 - Nonrheumatic aortic (valve) stenosis (6) Diabetes: As per medicine. Status: Acute Code(s): E11.9 - Type 2 diabetes mellitus without complications Attestations Medical Necessity Statement*: Required continuation hospitalizationDue to above defined problem Coding Level of Care Code Established Pt Acute Autocad for g Fwd Patient Type Established History Expanded Problem Focused Exam Detailed Medical Decision Making Moderate Complexity Diagnoses ACS (acute coronary syndrome) I24.9 Acute kidney injury superimposed on chronic kidney disease N17.9; N18.9 Heart failure with preserved ejection fraction I50.33 Heart failure chronicity: acute on chronic Atrial fibrillation by electrocardiogram I48.91 Aortic stenosis I35.0 Diabetes E11.9
[2019-09-09] MEDS: insulin glargine 100 units/1 mL 12 UNIT SUBCUT (20:16)
[2019-09-09] MEDS: gabapentin 100 mg Capsule PO (20:16)
[2019-09-09] MEDS: atorvastatin 40 mg Tablet 80 MG PO (20:16)
[2019-09-09] MEDS: temazepam 15 mg Capsule PO (20:16)
[2019-09-09 20:51] LABS: Glucose Point of Care 215 mg/dL (70-110)
--- NOTE | 2019-09-09 21:49 | PC.NURSE ---
Patient resting with eyes closed and even, non-labored respirations. Placed bipap as requested by
[2019-09-10] VITALS (13 sets, daily range): BP systolic 107–151; BP diastolic 42–69; PULSE 61–74; RESP 12–29; TEMP 36.4–36.8; O2SAT 99–100
[2019-09-10] MEDS: ALPRAZolam 0.25 mg Tablet PO (00:03)
[2019-09-10] MEDS: ondansetron 2 mg/ML SDV 2 mL 4 MG IVP (05:01)
[2019-09-10 05:09] LABS: Basophils % 0.6 %; Eosinophils # 0.2 10^3/uL (0.0-0.8); Eosinophils % 2.7 %; Hematocrit 22.6 % (37.0-47.0); Hemoglobin 7.1 g/dL (11.5-15.3); Lymphocytes % 15.1 %; Mean Corpuscular HGB Conc 31.4 g/dL (30.0-36.0); Mean Corpuscular Volume 95.4 fL (81-99); Mean Platelet Volume 10.3 fL (7.4-10.4); Monocytes # 0.7 10^3/uL (0.2-0.9); Monocytes % 11.2 %; Neutrophils # 4.6 10^3/uL (1.8-7.7); Neutrophils % 69.9 %; Nucleated Red Blood Cells % 0 %; Platelet Count 166 10^3/cmm (130-400); Red Blood Count 2.37 10^6/uL (4.1-5.3); Red Cell Distribution Width 15.9 % (12.1-15.1); White Blood Count 6.6 10^3/uL (4.0-10.0)
[2019-09-10 05:23] LABS: INR 1.33 (0.8-1.2)
[2019-09-10 05:36] LABS: Alanine Aminotransferase 6 U/L (0-33); Albumin Level 3.3 g/dL (3.5-5.2); Alkaline Phosphatase 82 IU/L (35-105); Aspartate Amino Transferase 11 U/L (0-32); Blood Urea Nitrogen 60 mg/dL (8-23); Carbon Dioxide 23 mmol/L (22-29); Chloride 98 mmol/L (98-107); Ferritin 202 ng/mL (15-150); Globulin 2.8 g/dL (1.3-4.6); Glomerular Filtration Rate 9.2 mL/min (90-130); Glucose 121 mg/dL (65-115); Iron 44 ug/dL (37-145); Magnesium 2.2 mg/dL (1.7-2.3); Osmolality Calculated 280 mOsm/kg (285-295); Percent Saturation 18.4 % (20-50); Sodium 135 mmol/L (136-145); Total Bilirubin 0.7 mg/dL (0.15-1.2); Total Iron Binding Capacity 239 mcg/dl; Total Protein 6.1 g/dL (6.6-8.7); Unsaturated Iron Binding 195 ug/dL (112-347)
[2019-09-10 05:55] LABS: Calcium 8.9 mg/dL (8.5-10.5); Parathyroid Hormone 170.6 pg/mL (15-65)
[2019-09-10 06:01] LABS: Phosphorus 7.9 mg/dL (2.5-4.5)
[2019-09-10 06:15] LABS: Glucose Point of Care 133 mg/dL (70-110)
--- NOTE | 2019-09-10 06:28 | P.CONIM_ITS ---
Providers/Reason For Consult Consulting Physican/Specialty*: Mark Connolly MD Reason for Consult*: Acute renal failure requiring hemodialysis access Attending Physician: Shoshana Patel MD Primary Care Provider: Betsy Nuno DO History of Present Illness History of Present Illness Chief Complaint: I am tired History of present illness: Ms. Fantasma Montalvo is a pleasant 68 year old female, morbidly obese patient with multiple medical comorbidities, about 4 days ago she had acute W[place] that required cardiac cath and placement of stents apparently the patient developed contrast-induced nephropathy and she is fluid overloaded, nephrology service was consulted for evaluating the patient and I was approached by Dr. Patel for potential consideration of temporary hemodialysis access to help the patient reverse her numbers and to make her feel better. Currently the patient is on Plavix, Eliquis and aspirin Review of Systems General: Reports: 10 or more systems reviewed and unremarkable except in HPI and below (Shortness of breath, leg swelling and tired) Narrative: Meds/Allergies Home Medications and Allergies Home Medications Medication Instructions Recorded Confirmed Type bumetanide 2 mg PO DAILY 08/20/19 09/05/19 History fentanyl 50 mcg TOPICAL Q72H 08/20/19 09/05/19 History gabapentin 100 mg PO BEDTIME 08/20/19 09/05/19 History glipizide 10 mg PO DAILY 08/20/19 09/05/19 History insulin aspart U-100 [Novolog See Protocol SUBCUT AC 08/20/19 09/05/19 History Flexpen U-100 Insulin] levothyroxine 50 mcg PO DAILY 08/20/19 09/05/19 History metoprolol tartrate 50 mg PO BID 08/20/19 09/05/19 History potassium chloride 10 meq PO DAILY 08/20/19 09/05/19 History rosuvastatin 20 mg PO BEDTIME 08/20/19 09/05/19 History sertraline 25 mg PO DAILY 08/20/19 09/05/19 History apixaban [Eliquis] 2.5 mg PO BID #30 tab 08/23/19 09/05/19 Rx aspirin 81 mg PO DAILY #30 tab 08/23/19 09/05/19 Rx isosorbide mononitrate 30 mg PO BID #0 tab 08/23/19 09/05/19 Rx insulin glargine [Lantus Solostar 12 unit SUBCUT DAILY 09/05/19 09/05/19 History U-100 Insulin] nifedipine 30 mg PO DAILY 09/05/19 09/05/19 History ondansetron HCl [Zofran] 4 mg PO BID PRN 09/05/19 09/05/19 History Allergies Allergy/AdvReac Type Severity Reaction Status Date / Time duloxetine [From Cymbalta] Allergy Unknown Verified 09/10/19 06:29 prochlorperazine Allergy ALGY-Anaphy Verified 09/10/19 06:29 [From Compazine] laxis sucralfate [From Carafate] Allergy Unknown Verified 09/10/19 06:29 trazodone Allergy Unknown Verified 09/10/19 06:29 zaleplon [From Sonata] Allergy Unknown Verified 09/10/19 06:29 Current Medications Current Medications Generic Name Dose Route Start Last Admin Trade Name Freq PRN Reason Stop Dose Admin Acetaminophen 650 mg 09/06/19 12:01 09/08/19 20:10 Tylenol PO 650 mg Q6H PRN Administration MILD PAIN Alprazolam 0.25 mg 09/06/19 12:01 09/10/19 00:03 Xanax PO 0.25 mg TID PRN Administration ANXIETY Atorvastatin Calcium 80 mg 09/05/19 21:00 09/09/19 20:16 Lipitor PO 80 mg BEDTIME PINA Administration Clopidogrel Bisulfate 75 mg 09/06/19 12:05 09/09/19 08:33 Plavix PO 75 mg DAILY PINA Administration Fentanyl 1 patch 09/05/19 20:45 09/08/19 21:00 Duragesic 50 Mcg Patch TRANSDERMA 1 patch Q72H PINA Administration Gabapentin 100 mg 09/05/19 21:00 09/09/19 20:16 Neurontin PO 100 mg BEDTIME PINA Administration Furosemide 100 mg/ Sodium 50 mls @ 5 mls/hr 09/09/19 14:00 09/09/19 23:14 Chloride IV 10 mg/hr .Q10H PINA 5 mls/hr Administration Protocol 10 MG/HR Insulin Aspart 0 unit 09/06/19 08:00 09/09/19 17:50 Novolog SUBCUT 8 unit TIDWM PINA Administration Protocol Insulin Glargine 12 unit 09/06/19 21:00 09/09/19 20:16 Lantus SUBCUT 12 unit BEDTIME PINA Administration Isosorbide Mononitrate 30 mg 09/06/19 09:00 09/06/19 08:03 Imdur PO Not Given BID PINA Levothyroxine Sodium 50 mcg 09/06/19 09:00 09/09/19 08:33 Synthroid PO 50 mcg DAILY PINA Administration Nifedipine 30 mg 09/07/19 09:00 09/09/19 08:33 Procardia Xl PO 30 mg DAILY PINA Administration Nitroglycerin 1 inch 09/09/19 14:00 09/09/19 20:16 Nitro-Bid TOPICAL 1 inch Q6H PRN Administration CHEST PAIN Ondansetron HCl 4 mg 09/05/19 20:37 09/10/19 05:01 Zofran IVP 4 mg Q6H PRN Administration NAUSEA AND VOMITING Potassium Chloride 10 meq 09/06/19 09:00 09/09/19 08:33 Klor-Con 10 PO 10 meq DAILY PINA Administration Temazepam 15 mg 09/06/19 12:01 09/09/19 20:16 Restoril PO 15 mg BEDTIME PRN Administration INSOMNIA PFSH Acute PFSH: Medical History Adverse drug reaction Angina pectoris Aortic stenosis Atrial fibrillation by electrocardiogram CAD (coronary artery disease) Cellulitis CHF (congestive heart failure) Dental caries Diabetes DJD (degenerative joint disease) Fibula fracture Gastroenteritis GERD (gastroesophageal reflux disease) HTN (hypertension) Hypercholesterolemia Hyperlipidemia Radius fracture Renal failure Rhabdomyolysis Tibia fracture UTI (urinary tract infection) Vertigo Surgical History History of cardiac catheterization History of hernia repair History of hip surgery History of hysterectomy History of knee surgery History of sinus surgery History of tonsillectomy History of umbilical hernia repair Family History Other Diabetes Stroke Denies family history of CAD (coronary artery disease) Clotting disorder Dementia Chronic kidney disease (CKD) Social History Smoking and tobacco status: never smoked Quit status (tobacco): has quit using tobacco Former quit date comment: Smoking in her 20s Alcohol intake: never Caregiver/support person: Yes (Home health services Friday) Lives independently: Yes Housing: House Vitals/I&O/Wt Last Vital Signs Temp 98.3 F 09/10/19 04:00 Pulse 66 09/10/19 04:00 Resp 29 H 09/10/19 04:00 BP 107/45 09/10/19 04:00 Pulse Ox 100 09/10/19 04:00 09/09/19 09/09/19 09/10/19 14:59 22:59 06:59 Intake Total 1647.5 / 1647.5 371.083 / 2018.583 143.75 / 2162.333 Output Total 200 / 200 200 / 400 275 / 675 Balance 1447.5 / 1447.5 171.083 / 1618.583 -131.25 / 1487.333 Physical Exam Narrative: EXAM NARRATIVE: Patient is conscious alert oriented X3 BMI 44 Head and neck examination PERRLA no masses no cervical lymphadenopathy no jaundice Cardiac examination audible S1-S2 no murmurs no gallops no arrhythmias Chest is clear bilateral,abscence of Rhonchi or wheezes,no surgical emphysema Abdomen nontender nondistended soft no organomegaly guarding or rigidity/no signs of peritonitis Morbidly obese José catheter in place with clear urine Urinary Catheter Management^: José: Cath Placed During This Visit: yes, but has since been removed by the nurse Reason for Continuing Indwelling Catheter: Other Urinary Catheter Date of Insertion: 09/09/19 Urinary Catheter Time of Insertion: 11:31 Date Urinary Catheter Removed: 09/07/19 Time Urinary Catheter Discontinued: 13:08 A&P Assessment and plan (1) Acute renal failure: 6:30 AM After history taking physical examination and reviewing the chart we will continue the discussion with the hospitalist & nephrology services for potential placement of temporary hemodialysis catheter, apparently the patient has been making urine about 270 mL overnight. We will need more direction from the nephrology service with regard to placement of the dialysis catheter understanding that the patient is on Plavix,Eliquis and aspirin and she is definitely at high risk of bleeding if the catheter would to be placed we will have to do it in the OR due to the high risk factors associated with the procedure. I did discuss with the patient in depth and in length in the presence of her RN Anushka the potential indications, risks, benefits and alternatives, she wants to think about it and ultimately through the day will reach a decision. Thank you for consulting general surgery to participate taking care Status: Acute Code(s): N17.9 - Acute kidney failure, unspecified Consult Attestations Medical Necessity Statement: Medical necessity care is expected to cross 2 midnights Time Spent in Patient Care: 16 - 35 minutes (>than 50% of time spent in counselling and/or direct pt care on unit) . 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
[2019-09-10] MEDS: levothyroxine 50 mcg Tablet PO (08:48)
[2019-09-10] MEDS: NIFEdipine ER (24 hr) 30 mg Tablet PO (08:48)
--- NOTE | 2019-09-10 09:25 | PC.SOCIAL ---
IMM Updated Page 2 of IMM updated and given to patient. Initialed, dated, and timed and placed back in chart.
--- NOTE | 2019-09-10 09:32 | PM.PN ---
Subjective Subjective: Interval history: Overnight did not tolerate BiPAP use, currently on nasal cannula. Had to 75 mL urine output overnight. Continues on Lasix drip. Morning labs indicate drop in hemoglobin from 8.1->7.1 so will order transfusion of blood products. Also noted worsening renal impairment with BUN of 60 and creatinine of 4.7, borderline high potassium at 5.0 and increased phosphorus at 7.9. Kept NPO after midnight for temporary dialysis catheter placement. Patient resting in bed, currently on 3 L nasal cannula, no apparent signs of respiratory distress. Discussed labs including dropping hemoglobin and worsening renal function. Has had an additional 150 mL urine output this morning. Continues to complain of pain in her R wrist. Clean dressing in place. Case discussed with Dr. Ceja this morning, will continue Lasix drip with close monitoring of urine output, repeat labs this afternoon. Secondary to noted drop in hemoglobin we will transfuse 1 unit with close monitoring for development of respiratory distress, need additional Lasix per Dr. Estrada due to increased volume. Updated Dr. Connolly, will hold off on temporary dialysis catheter placement pending repeat labs this afternoon and urine output. Medications: Reviewed: Yes Medication Review Details: Active Medications Generic Name Dose Route Start Last Admin Trade Name Freq PRN Reason Stop Dose Admin Acetaminophen 650 mg 09/06/19 12:01 09/08/19 20:10 Tylenol PO 650 mg Q6H PRN Administration MILD PAIN Alprazolam 0.25 mg 09/06/19 12:01 09/10/19 00:03 Xanax PO 0.25 mg TID PRN Administration ANXIETY Atorvastatin Calci um 80 mg 09/05/19 21:00 09/09/19 20:16 Lipitor PO 80 mg BEDTIME PINA Administration Atropine Sulfate 0.5 mg 09/06/19 12:01 Atropine IVP PRN PRN Symptomatic cate cardia Clopidogrel Bisulf ate 75 mg 09/06/19 12:05 09/09/19 08:33 Plavix PO 75 mg DAILY PINA Administration Dextrose 25 ml 09/05/19 20:40 D50w IVP ONCE PRN hypoglycemia prot ocol Protocol Dextrose 50 ml 09/05/19 20:40 D50w IVP PRN PRN hypoglycemia prot ocol Protocol Fentanyl 1 patch 09/05/19 20:45 09/08/19 21:00 Duragesic 50 Mcg Patch TRANSDERMA 1 patch Q72H PINA Administration Gabapentin 100 mg 09/05/19 21:00 09/09/19 20:16 Neurontin PO 100 mg BEDTIME PINA Administration Glucagon 1 mg 09/05/19 20:40 Glucagen IM ONCE PRN Adult Acute Hypog lycemia Prot. Protocol Dextrose 500 mls @ 100 mls /hr 09/05/19 20:40 D5w IV ONCE PRN Adult Acute Hypog lycemia Prot Protocol Furosemide 100 mg/ Sodium 50 mls @ 5 mls/hr 09/09/19 14:00 09/09/19 23:14 Chloride IV 10 mg/hr .Q10H PINA 5 mls/hr Administration Protocol 10 MG/HR Insulin Aspart 0 unit 09/06/19 08:00 09/10/19 07:41 Novolog SUBCUT Not Given TIDWM [facility] Protocol Insulin Glargine 12 unit 09/06/19 21:00 09/09/19 20:16 Lantus SUBCUT 12 unit BEDTIME PINA Administration Isosorbide Mononit rate 30 mg 09/06/19 09:00 09/06/19 08:03 Imdur PO Not Given BID [facility] Levothyroxine Sodi um 50 mcg 09/06/19 09:00 09/10/19 08:48 Synthroid PO 50 mcg DAILY [facility] Administration Magnesium Hydroxid e 30 ml 09/06/19 12:01 Milk Of Magnesia PO DAILY PRN CONSTIPATION Naloxone HCl 0.1 mg 09/06/19 12:01 Narcan IVP Q2M PRN RESPIRATORY RATE < 8/MIN Nifedipine 30 mg 09/07/19 09:00 09/10/19 08:48 Procardia Xl PO 30 mg DAILY [facility] Administration Nitroglycerin 0.4 mg 09/06/19 12:01 Nitrostat SUBLINGUAL Q5M PRN CHEST PAIN Nitroglycerin 1 inch 09/09/19 14:00 09/09/19 20:16 Nitro-Bid TOPICAL 1 inch Q6H PRN Administration CHEST PAIN Ondansetron HCl 4 mg 09/05/19 20:37 09/10/19 05:01 Zofran IVP 4 mg Q6H PRN Administration NAUSEA AND VOMITI NG Potassium Chloride 10 meq 09/06/19 09:00 09/09/19 08:33 Klor-Con 10 PO 10 meq DAILY PINA Administration Temazepam 15 mg 09/06/19 12:01 09/09/19 20:16 Restoril PO 15 mg BEDTIME PRN Administration INSOMNIA duloxetine [From Cymbalta] Allergy (Verified 09/10/19 06:29) Unknown prochlorperazine [From Compazine] Allergy (Verified 09/10/19 06:29) ALGY-Anaphylaxis sucralfate [From Carafate] Allergy (Verified 09/10/19 06:29) Unknown trazodone Allergy (Verified 09/10/19 06:29) Unknown zaleplon [From Sonata] Allergy (Verified 09/10/19 06:29) Unknown Vitals/I&O/Wt Last Vital Signs Temp 97.9 F 09/10/19 08:00 Pulse 66 09/10/19 08:00 Resp 20 H 09/10/19 08:00 BP 120/42 09/10/19 08:00 Pulse Ox 100 09/10/19 08:00 09/09/19 09/10/19 09/10/19 22:59 06:59 14:59 Intake Total 371.083 / 2018.583 143.75 / 2162.333 Output Total 200 / 400 275 / 675 Balance 171.083 / 1618.583 -131.25 / 1487.333 Physical Exam Const: COMMON NORMALS: no apparent distress and oriented x3 GENERAL APPEARANCE: cooperative and comfortable NUTRITIONAL APPEARANCE: obese morbidly obese ORIENTATION/CONSCIOUSNESS: Yes awake HENMT: COMMON NORMALS: normocephalic, head/scalp atraumatic, hearing grossly normal bilaterally and moist oral mucous membranes HEAD & SCALP: normocephalic and atraumatic Eye: COMMON NORMALS: PERRL, EOMs intact bilaterally and conjunctivae normal CONJUNCTIVA: Yes conjunctivae normal PUPIL: Yes PERRL Neck/C-Spine: COMMON NORMALS: full ROM GENERAL: Yes normal visual inspection and Yes trachea midline Chest: COMMONS NORMALS: inspection of chest normal and palpation of chest normal Resp: COMMON NORMALS: normal respiratory effort, no retractions, no use of accessory muscles and clear to auscultation bilaterally EFFORT & INSPECTION: Yes able to speak in complete sentences, Yes symmetric chest movement and No tachypneic AUSCULTATION: clear to auscultation bilaterally Cardio: COMMON NORMALS: regular rate, regular rhythm, S1 normal heart sound, S2 normal heart sound and no murmurs RATE: regular rate RHYTHM: regular rhythm HEART SOUNDS: S1 normal and S2 normal GI: COMMON NORMALS: normal to inspection, nondistended, normoactive bowel sounds, soft to palpation and non-tender INSPECTION: Yes central obesity PALPATION: Yes soft : BLADDER/KIDNEY EXAM: No catheter in place Extremity: COMMON NORMALS: normal to inspection, full ROM and no clubbing, cyanosis or edema; negative for no pedal edema NARRATIVE EXTREMITY EXAM: -clean dressing, no hematoma on inspection of R wrist, R inguinal areas -R wrist area very tender to palpation, some superficial bruising noted Neuro: COMMON NORMALS: oriented x3, moves all extremities, no focal motor deficits and no sensory deficits noted Psych: COMMON NORMALS: mental status grossly normal, thought process normal, cooperative, affect normal and speech normal SPEECH: Yes normal speech THOUGHT PROCESS: normal thought process Skin: COMMON NORMALS: no rashes or lesions noted, no jaundice, no petechiae and no mottling GENERAL SKIN EXAM: no rashes or lesions noted Urinary Catheter Management^: José: Cath Placed During This Visit: yes, but has since been removed by the nurse Reason for Continuing Indwelling Catheter: Other Urinary Catheter Date of Insertion: 09/09/19 Urinary Catheter Time of Insertion: 11:31 Date Urinary Catheter Removed: 09/07/19 Time Urinary Catheter Discontinued: 13:08 Data : 09/10/19 04:55 09/10/19 04:55 A&P Assessment and plan (1) Acute kidney injury superimposed on chronic kidney disease: -CKD stage 3-4, 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 Newman/Dr. Ceja appreciated -Surgery consult requested for temporary dialysis catheter placement -has been on lasix drip since yesterday (09/08) with little improvement in urine output Status: Acute Code(s): N17.9 - Acute kidney failure, unspecified; N18.9 - Chronic kidney disease, unspecified (2) ACS (acute coronary syndrome): -Presented with complaints of chest pain and shortness of breath, STEMI alert called en route to the ER -Recent admission for chest pain, had stress testing done with noted small sathya-infarct ischemia in RCA/circumflex territory, large size perfusion abnormality of moderate to severe severity of the entire inferior, mild to apical inferolateral, apical lateral and apical watters with some reversibility in mid inferior, mid to apical inferolateral watters; EKG portion was unremarkable -Evaluated by Dr. Estrada, plan for medical management as patient has pre-existing evidence of OK involving the inferolateral region that is nonviable. s/p cath (09/05) with intervention done (PCI of RCA and balloon angioplasty of proximal and mid diagonal branch) -Loaded with aspirin and Plavix, heparin drip; continue nitrates, statin, beta-gato, Eliquis, off heparin drip. DAPT and AC on hold for HD catheter placement and due to worsening anemia -Troponin trend noted, significant delta change noted -serial ECGs with noted atrial fibrillation, RBBB -Telemetry monitoring -Vital signs stable, continue to monitor -Had echo done during most recent admission showing an ejection fraction of 55%, grade 2 diastolic dysfunction, mild pulmonary hypertension, mild aortic stenosis, mild to moderate mitral regurgitation -has prior hx of CAD -continue to complain of R wrist pain, will order venous duplex to r/o DVT given recent cath access Status: Acute Code(s): I24.9 - Acute ischemic heart disease, unspecified (3) Heart failure with preserved ejection fraction: -Noted acute exacerbation of chronic diastolic CHF as evidenced by symptomatic dyspnea, elevated BNP of 8389 -Echo as noted above -Off diuresis due to renal impairment -Continue to monitor I's and O's, daily weight, renal function and electrolytes -cardiac diet as tolerated -Developed flash pulmonary edema while on IV fluid hydration given secondary to worsening renal impairment. IV fluid discontinued and is currently requiring BiPAP Status: Acute Qualifiers: Heart failure chronicity: acute on chronic Qualified Code(s): I50.33 - Acute on chronic diastolic (congestive) heart failure Code(s): I50.30 - Unspecified diastolic (congestive) heart failure Additional A&P Information -Morbid obesity: BMI-44 kg/m2 -Recently treated for UTI, with Cipro -IDDM type II; A1c-7.1; Accucheks, ISS -HTN; VSS: on oral antihypertensive regimen -Hyperlipidemia; on statin; lipid panel noted -SOB: screened for influenza due to SOB, negative; CXR-interstitial fibrosis; supplemental oxygen as needed; continue to monitor respiratory status -Chronic atrial fibrillation, on BB, Eliquis; off heparin drip; intermittently bradycardic, during last admission was noted to have atrial fibrillation with slow VR -Hypothyroidism; on Levothyroxine -Acute on chronic normocytic anemia; baseline Hg 9-10; iron panel noted; continue to monitor H/H. Has had GI workup done with colonoscopy (11/2014) unremarkable other than diverticuli and 5 mm sessile polyp in sigmoid colon (pathology-benign mucosa with edema and surface hyperplastic change, no malignancy). Likely anemia of chronic disease. Worsening anemia today so will plan on transfusion of 2 units PRBCs (with caution to avoid fluid overload) -hx of seronegative RA and OA -DVT ppx not needed as on Eliquis (on hold due to worsening anemia, potential need for HD catheter placement) -Dispo: home with continued HH services ([facility]) -Code status: FULL code Attestations Medical Necessity Statement*: Patient requires hospitalization for continued management of contrast-induced nephropathy, with worsening renal function and oliguria, requiring temporary dialysis and continued close monitoring of renal function and urine output. Time Spent in Patient Care: Greater than 35 minutes (>than 50% of time spent in counselling and/or direct pt care on unit). Coding Level of Care Code Acute Picking Table Worker for Chg Fwd Exam Comprehensive Diagnoses Acute kidney injury superimposed on chronic kidney disease N17.9; N18.9 ACS (acute coronary syndrome) I24.9 Heart failure with preserved ejection fraction I50.33 Heart failure chronicity: acute on chronic
--- NOTE | 2019-09-10 10:22 | P.PN_ITS ---
Subjective Subjective: Interval history: Feels ok. Breathing is better. UO overnight marginal at 275ml but this morning she has made 150ml in 3 hrs. Remains on Lasix 10mg iv/hrly. Mild LE edema. On nasal O2. Medications: Reviewed: Yes Medication Review Details: Active Medications Generic Name Dose Route Start Last Admin Trade Name Freq PRN Reason Stop Dose Admin Acetaminophen 650 mg 09/06/19 12:01 09/08/19 20:10 Tylenol PO 650 mg Q6H PRN Administration MILD PAIN Alprazolam 0.25 mg 09/06/19 12:01 09/10/19 00:03 Xanax PO 0.25 mg TID PRN Administration ANXIETY Atorvastatin Calci um 80 mg 09/05/19 21:00 09/09/19 20:16 Lipitor PO 80 mg BEDTIME PINA Administration Atropine Sulfate 0.5 mg 09/06/19 12:01 Atropine IVP PRN PRN Symptomatic cate cardia Clopidogrel Bisulf ate 75 mg 09/06/19 12:05 09/09/19 08:33 Plavix PO 75 mg DAILY PINA Administration Dextrose 25 ml 09/05/19 20:40 D50w IVP ONCE PRN hypoglycemia prot ocol Protocol Dextrose 50 ml 09/05/19 20:40 D50w IVP PRN PRN hypoglycemia prot ocol Protocol Fentanyl 1 patch 09/05/19 20:45 09/08/19 21:00 Duragesic 50 Mcg Patch TRANSDERMA 1 patch Q72H PINA Administration Gabapentin 100 mg 09/05/19 21:00 09/09/19 20:16 Neurontin PO 100 mg BEDTIME PINA Administration Glucagon 1 mg 09/05/19 20:40 Glucagen IM ONCE PRN Adult Acute Hypog lycemia Prot. Protocol Dextrose 500 mls @ 100 mls /hr 09/05/19 20:40 D5w IV ONCE PRN Adult Acute Hypog lycemia Prot Protocol Furosemide 100 mg/ Sodium 50 mls @ 5 mls/hr 09/09/19 14:00 09/09/19 23:14 Chloride IV 10 mg/hr .Q10H PINA 5 mls/hr Administration Protocol 10 MG/HR Insulin Aspart 0 unit 09/06/19 08:00 09/10/19 07:41 Novolog SUBCUT Not Given TIDWM PINA Protocol Insulin Glargine 12 unit 09/06/19 21:00 09/09/19 20:16 Lantus SUBCUT 12 unit BEDTIME PINA Administration Isosorbide Mononit rate 30 mg 09/06/19 09:00 09/06/19 08:03 Imdur PO Not Given BID PINA Levothyroxine Sodi um 50 mcg 09/06/19 09:00 09/10/19 08:48 Synthroid PO 50 mcg DAILY PINA Administration Magnesium Hydroxid e 30 ml 09/06/19 12:01 Milk Of Magnesia PO DAILY PRN CONSTIPATION Naloxone HCl 0.1 mg 09/06/19 12:01 Narcan IVP Q2M PRN RESPIRATORY RATE < 8/MIN Nifedipine 30 mg 09/07/19 09:00 09/10/19 08:48 Procardia Xl PO 30 mg DAILY PINA Administration Nitroglycerin 0.4 mg 09/06/19 12:01 Nitrostat SUBLINGUAL Q5M PRN CHEST PAIN Nitroglycerin 1 inch 09/09/19 14:00 09/09/19 20:16 Nitro-Bid TOPICAL 1 inch Q6H PRN Administration CHEST PAIN Ondansetron HCl 4 mg 09/05/19 20:37 09/10/19 05:01 Zofran IVP 4 mg Q6H PRN Administration NAUSEA AND VOMITI NG Potassium Chloride 10 meq 09/06/19 09:00 09/09/19 08:33 Klor-Con 10 PO 10 meq DAILY PINA Administration Temazepam 15 mg 09/06/19 12:01 09/09/19 20:16 Restoril PO 15 mg BEDTIME PRN Administration INSOMNIA duloxetine [From Cymbalta] Allergy (Verified 09/10/19 06:29) Unknown prochlorperazine [From Compazine] Allergy (Verified 09/10/19 06:29) ALGY-Anaphylaxis sucralfate [From Carafate] Allergy (Verified 09/10/19 06:29) Unknown trazodone Allergy (Verified 09/10/19 06:29) Unknown zaleplon [From Sonata] Allergy (Verified 09/10/19 06:29) Unknown Vitals/I&O/Wt Last Vital Signs Temp 97.9 F 09/10/19 08:00 Pulse 66 09/10/19 09:45 Resp 20 H 09/10/19 08:00 BP 120/42 09/10/19 08:00 Pulse Ox 100 09/10/19 09:45 09/09/19 09/10/19 09/10/19 22:59 06:59 14:59 Intake Total 371.083 / 2018.583 143.75 / 2162.333 Output Total 200 / 400 275 / 675 150 / 150 Balance 171.083 / 1618.583 -131.25 / 1487.333 -150 / -150 Physical Exam Const: COMMON NORMALS: no apparent distress, average body habitus and oriented x3 HENMT: COMMON NORMALS: normocephalic and head/scalp atraumatic HEAD & SCA LP: normocephalic and atraumatic Eye: COMMON NORMALS: PERRL and EOMs intact bilaterally PUPIL: Yes PERRL Neck/C-Spine: COMMON NORMALS: no JVD Lymph: LYMPHATIC: no lymphadenopathy noted Resp: COMMON NORMALS: normal respiratory effort and no retractions Cardio: COMMON NORMALS: no JVD and regular rate RATE: regular rate GI: COMMON NORMALS: normal to inspection, nondistended, normoactive bowel sounds Extremity: COMMON NORMALS: normal to inspection and full ROM GENERAL: Yes edema Neuro: COMMON NORMALS: oriented x3 Urinary Catheter Management^: José: Cath Placed During This Visit: yes, but has since been removed by the nurse Reason for Continuing Indwelling Catheter: Other Urinary Catheter Date of Insertion: 09/09/19 Urinary Catheter Time of Insertion: 11:31 Date Urinary Catheter Removed: 09/07/19 Time Urinary Catheter Discontinued: 13:08 Data : 09/10/19 04:55 09/10/19 04:55 A&P Additional A&P Information 1. FARRUKH - appears consistent with contrast related injury - creatinine increasing, UO appears to be better this morning - no acute indication for dialysis but she is very high risk for needing dialysis in the next 24-48hrs. Given the potential for complications of line placement I agree with deferring placement today - cont iv lasix; may need thiazide - limit vol where at all possible - CXR today - am labs - strict Is and Os - avoid the usuals 2. Anemia - will defer to cardiology; Hb 7.1, minimize transfusions where possible (my main concern is for volume) - repeat H/H this afternoon 3. 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
--- NOTE | 2019-09-10 10:39 | USCV_ITS ---
Fantasma Montalvo Age: 68 Gender: F : 1950 Exam Date: 09/10/2019 11:20 Ordering Phys: Shoshana Patel MD Technologist: NICKY KIM [place] [facility] [place]: Recent cath. HISTORY: Upper extremity pain with redness. PROCEDURES: Venous duplex imaging was performed in only the right upper extremity. Also evaluated the right radial artery. FINDINGS: Normal 2-D, color Doppler and phasicity noted in ther right upper extremity venous system extending from the right internal jugular vein through the main forearm. No thrombosis or occlusion noted. Right radial artery is patent. CONCLUSIONS No right upper extremity DVT. Dr. Maricel Maldonado DO (Electronically Signed) Final Date: 10 September 2019 12:28 S
[2019-09-10] MEDS: FUROsemide 100 MG in sodium chloride 0.9% 40 ML IV ×2 (11:10→22:07)
[2019-09-10 11:27] LABS: Glucose Point of Care 116 mg/dL (70-110)
[2019-09-10] MEDS: calcium acetate 667 mg Capsule 1334 MG PO ×2 (12:13→19:03)
[2019-09-10 14:35] LABS: Anion Gap 20.6 (5-19); Blood Urea Nitrogen 68 mg/dL (8-23); Carbon Dioxide 22 mmol/L (22-29); Chloride 96 mmol/L (98-107); Glomerular Filtration Rate 8.6 mL/min (90-130); Glucose 102 mg/dL (65-115); Osmolality Calculated 275 mOsm/kg (285-295); Potassium 5.6 mmol/L (3.5-5.1); Sodium 133 mmol/L (136-145)
--- NOTE | 2019-09-10 16:33 | PC.NURSE ---
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 Ceja's contact #. Updated him on pt's repeat BMP, Phosphorus level and urine output for 5 hrs which is 150 cc.
[2019-09-10 16:46] LABS: Glucose Point of Care 101 mg/dL (70-110)
--- NOTE | 2019-09-10 16:57 | PM.PN ---
Subjective Subjective: Interval history: Denies shortness of breath. Creatinine has worsened.Low urine output Medications: Reviewed: Yes Medication Review Details: Active Medications Generic Name Dose Route Start Last Admin Trade Name Christiana PRN Reason Stop Dose Admin Acetaminophen 650 mg 09/06/19 12:01 09/08/19 20:10 Tylenol PO 650 mg Q6H PRN Administration MILD PAIN Alprazolam 0.25 mg 09/06/19 12:01 09/10/19 00:03 Xanax PO 0.25 mg TID PRN Administration ANXIETY Atorvastatin Calci um 80 mg 09/05/19 21:00 09/09/19 20:16 Lipitor PO 80 mg BEDTIME PINA Administration Atropine Sulfate 0.5 mg 09/06/19 12:01 Atropine IVP PRN PRN Symptomatic cate cardia Clopidogrel Bisulf ate 75 mg 09/06/19 12:05 09/09/19 08:33 Plavix PO 75 mg DAILY PINA Administration Dextrose 25 ml 09/05/19 20:40 D50w IVP ONCE PRN hypoglycemia prot ocol Protocol Dextrose 50 ml 09/05/19 20:40 D50w IVP PRN PRN hypoglycemia prot ocol Protocol Fentanyl 1 patch 09/05/19 20:45 09/08/19 21:00 Duragesic 50 Mcg Patch TRANSDERMA 1 patch Q72H PINA Administration Gabapentin 100 mg 09/05/19 21:00 09/09/19 20:16 Neurontin PO 100 mg BEDTIME PINA Administration Glucagon 1 mg 09/05/19 20:40 Glucagen IM ONCE PRN Adult Acute Hypog lycemia Prot. Protocol Dextrose 500 mls @ 100 mls /hr 09/05/19 20:40 D5w IV ONCE PRN Adult Acute Hypog lycemia Prot Protocol Furosemide 100 mg/ Sodium 50 mls @ 5 mls/hr 09/09/19 14:00 09/09/19 23:14 Chloride IV 10 mg/hr .Q10H PINA 5 mls/hr Administration Protocol 10 MG/HR Insulin Aspart 0 unit 09/06/19 08:00 09/10/19 07:41 Novolog SUBCUT Not Given TIDWM PINA Protocol Insulin Glargine 12 unit 09/06/19 21:00 09/09/19 20:16 Lantus SUBCUT 12 unit BEDTIME PINA Administration Isosorbide Mononit rate 30 mg 09/06/19 09:00 09/06/19 08:03 Imdur PO Not Given BID PINA Levothyroxine Sodi um 50 mcg 09/06/19 09:00 09/10/19 08:48 Synthroid PO 50 mcg DAILY PINA Administration Magnesium Hydroxid e 30 ml 09/06/19 12:01 Milk Of Magnesia PO DAILY PRN CONSTIPATION Naloxone HCl 0.1 mg 09/06/19 12:01 Narcan IVP Q2M PRN RESPIRATORY RATE < 8/MIN Nifedipine 30 mg 09/07/19 09:00 09/10/19 08:48 Procardia Xl PO 30 mg DAILY PINA Administration Nitroglycerin 0.4 mg 09/06/19 12:01 Nitrostat SUBLINGUAL Q5M PRN CHEST PAIN Nitroglycerin 1 inch 09/09/19 14:00 09/09/19 20:16 Nitro-Bid TOPICAL 1 inch Q6H PRN Administration CHEST PAIN Ondansetron HCl 4 mg 09/05/19 20:37 09/10/19 05:01 Zofran IVP 4 mg Q6H PRN Administration NAUSEA AND VOMITI NG Potassium Chloride 10 meq 09/06/19 09:00 09/09/19 08:33 Klor-Con 10 PO 10 meq DAILY PINA Administration Temazepam 15 mg 09/06/19 12:01 09/09/19 20:16 Restoril PO 15 mg BEDTIME PRN Administration INSOMNIA duloxetine [From Cymbalta] Allergy (Verified 09/10/19 06:29) Unknown prochlorperazine [From Compazine] Allergy (Verified 09/10/19 06:29) ALGY-Anaphylaxis sucralfate [From Carafate] Allergy (Verified 09/10/19 06:29) Unknown trazodone Allergy (Verified 09/10/19 06:29) Unknown zaleplon [From Sonata] Allergy (Verified 09/10/19 06:29) Unknown Vitals/I&O/Wt Last Vital Signs Temp 97.6 F 09/10/19 16:00 Pulse 64 09/10/19 16:00 Resp 12 09/10/19 16:00 BP 129/69 09/10/19 16:00 Pulse Ox 99 09/10/19 16:00 09/10/19 09/10/19 09/10/19 06:59 14:59 22:59 Intake Total 143.75 / 2162.333 54 / 54 350 / 404 Output Total 275 / 675 300 / 300 Balance -131.25 / 1487.333 -246 / -246 350 / 104 Physical Exam Narrative: EXAM NARRATIVE: GENERAL: Patient is alert, awake and oriented x3. NECK: No jugular vein distension. HEENT: No cyanosis. No icterus. No pallor. HEART: Irregular S1 and S2. No murmur, rub or gallop. LUNGS: Mildly basal crackles bilaterally. ABDOMEN: Soft, nontender and nondistended. Positive bowel sounds. No guarding, rebound or tenderness. CENTRAL NERVOUS SYSTEM: Grossly nonfocal. EXTREMITIES: Lower extremities without edema bilaterally. Const: COMMON NORMALS: oriented x3; apparent distress EXAM LIMITATIONS: no altered mental status and no behavioral limitations GENERAL APPEARANCE: cooperative and comfortable ORIENTATION/CONSCIOUSNESS: Yes awake, Yes oriented to person, Yes oriented to place and Yes oriented to time HENMT: COMMON NORMALS: normocephalic HEAD & SCALP: normocephalic Resp: EFFORT & INSPECTION: Yes able to speak in complete sentences (Not able to complete sentences, short of breath) and Yes tachypneic AUSCULTATION: crackles and rales bilateral Cardio: COMMON NORMALS: regular rate (Irregularly irregular), S1 normal heart sound and S2 normal heart sound RATE: regular rate (Irregularly irregular) HEART SOUNDS: S1 normal and S2 normal Extremity: OTHER: No bilateral lower extremity edema Neuro: COMMON NORMALS: oriented x3 and CN's II-XII intact bilaterally SENSORIUM/ORIENTATION: Yes oriented to person, Yes oriented to place and Yes oriented to time Psych: COMMON NORMALS: mental status grossly normal Urinary Catheter Management^: José: Cath Placed During This Visit: yes, but has since been removed by the nurse Reason for Continuing Indwelling Catheter: Other Urinary Catheter Date of Insertion: 09/09/19 Urinary Catheter Time of Insertion: 11:31 Date Urinary Catheter Removed: 09/07/19 Time Urinary Catheter Discontinued: 13:08 Data : 09/10/19 04:55 09/10/19 14:11 Micro: Microbiology 09/05/19 14:29 Blood Culture - Final Blood NO GROWTH AFTER 5 DAYS 09/05/19 14:20 Blood Culture - Final Blood NO GROWTH AFTER 5 DAYS A&P Assessment and plan (1) ACS (acute coronary syndrome): Status post PCI to mid RCA and balloon angioplasty to diagonal. Continue statin Plavix, Apixaban and aspirin Status: Acute Code(s): I24.9 - Acute ischemic heart disease, unspecified (2) Acute kidney injury superimposed on chronic kidney disease: Patient has baseline chronic kidney disease, Now developed contrast induced nephropathy. nephrology is on board. We will follow their directions Status: Acute Code(s): N17.9 - Acute kidney failure, unspecified; N18.9 - Chronic kidney disease, unspecified (3) Heart failure with preserved ejection fraction: Stable from congestive heart failure perspective. Status: Acute Qualifiers: Heart failure chronicity: acute on chronic Qualified Code(s): I50.33 - Acute on chronic diastolic (congestive) heart failure Code(s): I50.30 - Unspecified diastolic (congestive) heart failure (4) Atrial fibrillation by electrocardiogram: Rate controlled, due to anemia anticoagulation was discontinued Status: Acute Code(s): I48.91 - Unspecified atrial fibrillation (5) Aortic stenosis: Thso-ot-acjetmtl aortic stenosis. We'll continue to monitor. Status: Acute Code(s): I35.0 - Nonrheumatic aortic (valve) stenosis (6) Diabetes: As per medicine. Status: Acute Code(s): E11.9 - Type 2 diabetes mellitus without complications Attestations Medical Necessity Statement*: Patient requires continuation of hospitalization for above defined care Coding Level of Care Code Established Pt Acute Criminal Justice Instructor for g Fwd Patient Type Established History Expanded Problem Focused Exam Expanded Problem Focused Medical Decision Making Moderate Complexity Diagnoses ACS (acute coronary syndrome) I24.9 Acute kidney injury superimposed on chronic kidney disease N17.9; N18.9 Heart failure with preserved ejection fraction I50.33 Heart failure chronicity: acute on chronic Atrial fibrillation by electrocardiogram I48.91 Aortic stenosis I35.0 Diabetes E11.9
[2019-09-10] MEDS: sodium chloride 0.9% 100 ML (16:58)
[2019-09-10 17:20] LABS: Hemoglobin 8.4 g/dL (11.5-15.3)
[2019-09-10] MEDS: gabapentin 100 mg Capsule PO (20:44)
[2019-09-10] MEDS: atorvastatin 40 mg Tablet 80 MG PO (20:44)
[2019-09-10] MEDS: insulin glargine 100 units/1 mL 12 UNIT SUBCUT (20:44)
[2019-09-10 21:06] LABS: Glucose Point of Care 138 mg/dL (70-110)
[2019-09-11] VITALS (9 sets, daily range): BP systolic 119–146; BP diastolic 53–67; PULSE 63–92; RESP 15–20; TEMP 36.4–36.8; O2SAT 96–100
[2019-09-11 04:55] LABS: Basophils % 0.7 %; Eosinophils # 0.2 10^3/uL (0.0-0.8); Eosinophils % 3.8 %; Hematocrit 26.3 % (37.0-47.0); Hemoglobin 8.3 g/dL (11.5-15.3); Lymphocytes # 0.7 10^3/uL (0.8-4.8); Lymphocytes % 11.7 %; Mean Corpuscular HGB Conc 31.6 g/dL (30.0-36.0); Mean Platelet Volume 10.4 fL (7.4-10.4); Monocytes # 0.7 10^3/uL (0.2-0.9); Neutrophils # 4.3 10^3/uL (1.8-7.7); Neutrophils % 72.5 %; Nucleated Red Blood Cells % 0 %; Platelet Count 159 10^3/cmm (130-400); Red Blood Count 2.86 10^6/uL (4.1-5.3); Red Cell Distribution Width 19.3 % (12.1-15.1)
[2019-09-11 05:18] LABS: Alanine Aminotransferase 6 U/L (0-33); Albumin Level 3.3 g/dL (3.5-5.2); Alkaline Phosphatase 80 IU/L (35-105); Anion Gap 20.1 (5-19); Aspartate Amino Transferase 11 U/L (0-32); Blood Urea Nitrogen 71 mg/dL (8-23); Calcium 9.5 mg/dL (8.5-10.5); Carbon Dioxide 22 mmol/L (22-29); Chloride 97 mmol/L (98-107); Globulin 2.9 g/dL (1.3-4.6); Glomerular Filtration Rate 7.7 mL/min (90-130); Glucose 119 mg/dL (65-115); Magnesium 2.3 mg/dL (1.7-2.3); Osmolality Calculated 279 mOsm/kg (285-295); Potassium 5.1 mmol/L (3.5-5.1); Sodium 134 mmol/L (136-145); Total Bilirubin 1.3 mg/dL (0.15-1.2); Total Protein 6.2 g/dL (6.6-8.7)
[2019-09-11 05:29] LABS: Phosphorus 8.4 mg/dL (2.5-4.5)
[2019-09-11 06:42] LABS: Glucose Point of Care 147 mg/dL (70-110)
[2019-09-11] MEDS: calcium acetate 667 mg Capsule 1334 MG PO ×3 (08:56→17:23)
[2019-09-11] MEDS: levothyroxine 50 mcg Tablet PO (08:56)
[2019-09-11] MEDS: NIFEdipine ER (24 hr) 30 mg Tablet PO (08:56)
[2019-09-11] MEDS: FUROsemide 100 MG in sodium chloride 0.9% 40 ML IV (09:02)
--- NOTE | 2019-09-11 09:13 | P.PN_ITS ---
Subjective Subjective: Interval history: Overnight had 550 mL urine output with an additional 350 mL this morning. Morning labs noted with a stable hemoglobin at 8.3, noted worsening renal function with creatinine up to 5.5, potassium of 5.1, phosphorus of 8.4. Vital signs stable, remains on 2 L nasal cannula. Remains on Lasix drip. Case discussed with Dr. Ceja, no emergent need for HD at this time given improvement in urine output and stable respiratory status. Will switch to oral diuretics. Updated Dr. William. Will resume DAPT and AC. Right wrist still quite sore and she is reporting some R sided chest pressure. Medications: Reviewed: Yes Medication Review Details: Active Medications Generic Name Dose Route Start Last Admin Trade Name Freq PRN Reason Stop Dose Admin Acetaminophen 650 mg 09/06/19 12:01 09/08/19 20:10 Tylenol PO 650 mg Q6H PRN Administration MILD PAIN Alprazolam 0.25 mg 09/06/19 12:01 09/10/19 00:03 Xanax PO 0.25 mg TID PRN Administration ANXIETY Atorvastatin Calci um 80 mg 09/05/19 21:00 09/10/19 20:44 Lipitor PO 80 mg BEDTIME PINA Administration Atropine Sulfate 0.5 mg 09/06/19 12:01 Atropine IVP PRN PRN Symptomatic cate cardia Calcium Acetate 1,334 mg 09/10/19 12:00 09/11/19 08:56 Phoslo PO 1,334 mg TIDWM PINA Administration Clopidogrel Bisulf ate 75 mg 09/06/19 12:05 09/10/19 11:03 Plavix PO Not Given DAILY PINA Dextrose 25 ml 09/05/19 20:40 D50w IVP ONCE PRN hypoglycemia prot ocol Protocol Dextrose 50 ml 09/05/19 20:40 D50w IVP PRN PRN hypoglycemia prot ocol Protocol Fentanyl 1 patch 09/05/19 20:45 09/08/19 21:00 Duragesic 50 Mcg Patch TRANSDERMA 1 patch Q72H PINA Administration Gabapentin 100 mg 09/05/19 21:00 09/10/19 20:44 Neurontin PO 100 mg BEDTIME PINA Administration Glucagon 1 mg 09/05/19 20:40 Glucagen IM ONCE PRN Adult Acute Hypog lycemia Prot. Protocol Dextrose 500 mls @ 100 mls /hr 09/05/19 20:40 D5w IV ONCE PRN Adult Acute Hypog lycemia Prot Protocol Furosemide 100 mg/ Sodium 50 mls @ 5 mls/hr 09/09/19 14:00 09/11/19 09:02 Chloride IV 10 mg/hr .Q10H PINA 5 mls/hr Administration Protocol 10 MG/HR Iron Sucrose 200 m g/ Sodium 110 mls @ 220 mls /hr 09/10/19 11:30 09/10/19 11:35 Chloride IV 09/14/19 09:29 Infused DAILY PINA Infusion Insulin Aspart 0 unit 09/06/19 08:00 09/11/19 08:24 Novolog SUBCUT Not Given TIDWM [facility] Protocol Insulin Glargine 12 unit 09/06/19 21:00 09/10/19 20:44 Lantus SUBCUT 12 unit BEDTIME PINA Administration Isosorbide Mononit rate 30 mg 09/06/19 09:00 09/06/19 08:03 Imdur PO Not Given BID [facility] Levothyroxine Sodi um 50 mcg 09/06/19 09:00 09/11/19 08:56 Synthroid PO 50 mcg DAILY [facility] Administration Magnesium Hydroxid e 30 ml 09/06/19 12:01 Milk Of Magnesia PO DAILY PRN CONSTIPATION Naloxone HCl 0.1 mg 09/06/19 12:01 Narcan IVP Q2M PRN RESPIRATORY RATE < 8/MIN Nifedipine 30 mg 09/07/19 09:00 09/11/19 08:56 Procardia Xl PO 30 mg DAILY PINA Administration Nitroglycerin 0.4 mg 09/06/19 12:01 Nitrostat SUBLINGUAL Q5M PRN CHEST PAIN Nitroglycerin 1 inch 09/09/19 14:00 09/09/19 20:16 Nitro-Bid TOPICAL 1 inch Q6H PRN Administration CHEST PAIN Ondansetron HCl 4 mg 09/05/19 20:37 09/10/19 05:01 Zofran IVP 4 mg Q6H PRN Administration NAUSEA AND VOMITI NG Potassium Chloride 10 meq 09/06/19 09:00 09/10/19 12:14 Klor-Con 10 PO Not Given DAILY PINA Temazepam 15 mg 09/06/19 12:01 09/09/19 20:16 Restoril PO 15 mg BEDTIME PRN Administration INSOMNIA duloxetine [From Cymbalta] Allergy (Verified 09/10/19 06:29) Unknown prochlorperazine [From Compazine] Allergy (Verified 09/10/19 06:29) ALGY-Anaphylaxis sucralfate [From Carafate] Allergy (Verified 09/10/19 06:29) Unknown trazodone Allergy (Verified 09/10/19 06:29) Unknown zaleplon [From Sonata] Allergy (Verified 09/10/19 06:29) Unknown Vitals/I&O/Wt Last Vital Signs Temp 97.9 F 09/11/19 04:00 Pulse 75 09/11/19 07:51 Resp 16 09/11/19 04:00 BP 119/53 09/11/19 04:00 Pulse Ox 100 09/11/19 07:51 09/10/19 09/11/19 09/11/19 22:59 06:59 14:59 Intake Total 636 / 800 50 / 50 Output Total 140 / 440 550 / 990 350 / 350 Balance 496 / 360 -550 / -190 -300 / -300 Physical Exam Const: COMMON NORMALS: no apparent distress and oriented x3 GENERAL APPEARANCE: cooperative and comfortable NUTRITIONAL APPEARANCE: obese morbidly obese ORIENTATION/CONSCIOUSNESS: Yes awake HENMT: COMMON NORMALS: normocephalic, head/scalp atraumatic, hearing grossly normal bilaterally and moist oral mucous membranes HEAD & SCALP: normocephalic and atraumatic Eye: COMMON NORMALS: PERRL, EOMs intact bilaterally and conjunctivae normal CONJUNCTIVA: Yes conjunctivae normal PUPIL: Yes PERRL Neck/C-Spine: COMMON NORMALS: full ROM GENERAL: Yes normal visual inspection and Yes trachea midline Chest: COMMONS NORMALS: inspection of chest normal and palpation of chest normal Resp: COMMON NORMALS: normal respiratory effort, no retractions, no use of accessory muscles and clear to auscultation bilaterally EFFORT & INSPECTION: Yes able to speak in complete sentences, Yes symmetric chest movement and No tachypneic AUSCULTATION: clear to auscultation bilaterally OTHER: -on 2 L NC Cardio: COMMON NORMALS: regular rate, regular rhythm, S1 normal heart sound, S2 normal heart sound and no murmurs RATE: regular rate RHYTHM: regular rhythm HEART SOUNDS: S1 normal and S2 normal GI: COMMON NORMALS: normal to inspection, nondistended, normoactive bowel sounds, soft to palpation and non-tender INSPECTION: Yes central obesity PALPATION: Yes soft : BLADDER/KIDNEY EXAM: Yes catheter in place Extremity: COMMON NORMALS: normal to inspection, full ROM and no clubbing, cyanosis or edema; negative for no pedal edema NARRATIVE EXTREMITY EXAM: -clean dressing, no hematoma on inspection of R wrist, R inguinal areas -R wrist area very tender to palpation, some superficial bruising noted Neuro: COMMON NORMALS: oriented x3, moves all extremities, no focal motor deficits and no sensory deficits noted Psych: COMMON NORMALS: mental status grossly normal, thought process normal, cooperative, affect normal and speech normal SPEECH: Yes normal speech THOUGHT PROCESS: normal thought process Skin: COMMON NORMALS: no rashes or lesions noted, no jaundice, no petechiae and no mottling GENERAL SKIN EXAM: no rashes or lesions noted Urinary Catheter Management^: José: Cath Placed During This Visit: yes, but has since been removed by the nurse Reason for Continuing Indwelling Catheter: Acute Urinary Retention or Obstruction Urinary Catheter Date of Insertion: 09/09/19 Urinary Catheter Time of Insertion: 11:31 Date Urinary Catheter Removed: 09/07/19 Time Urinary Catheter Discontinued: 13:08 Data : 09/11/19 04:34 09/11/19 04:34 Micro: Microbiology 09/05/19 14:29 Blood Culture - Final Blood NO GROWTH AFTER 5 DAYS 09/05/19 14:20 Blood Culture - Final Blood NO GROWTH AFTER 5 DAYS A&P Assessment and plan (1) Acute kidney injury superimposed on chronic kidney disease: -CKD stage 3-4, 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 On phosp binders -renally dose meds, avoid nephrotoxins, off diuretics -with gentle IVF hydration developed flash pulmonary edema; has been off IVF -suspect impairment is contrast-induced given recent coronary angiogram with intervention -Nephrology consult by Dr. Newman/Dr. Ceja appreciated -Surgery consult requested for temporary dialysis catheter placement; on hold for now as no need for emergent dialysis at this time -has been on lasix drip (09/08); will switch to oral Bumex 2 mg BID Status: Acute Code(s): N17.9 - Acute kidney failure, unspecified; N18.9 - Chronic kidney disease, unspecified (2) ACS (acute coronary syndrome): -Presented with complaints of chest pain and shortness of breath, STEMI alert called en route to the ER -Recent admission for chest pain, had stress testing done with noted small sathya- infarct ischemia in RCA/circumflex territory, large size perfusion abnormality of moderate to severe severity of the entire inferior, mild to apical inferolateral, apical lateral and apical watters with some reversibility in mid inferior, mid to apical inferolateral watters; EKG portion was unremarkable -Evaluated by Dr. Estrada, plan for medical management as patient has pre-existing evidence of NH involving the inferolateral region that is nonviable. s/p cath (09/05) with intervention done (PCI of RCA and balloon angioplasty of proximal and mid diagonal branch) -Loaded with aspirin and Plavix, heparin drip; continue nitrates, statin, beta-gato, Eliquis, off heparin drip. DAPT and AC on hold for HD catheter placement and due to worsening anemia -Troponin trend noted, significant delta change noted -serial ECGs with noted atrial fibrillation, RBBB -Telemetry monitoring -Vital signs stable, continue to monitor -Had echo done during most recent admission showing an ejection fraction of 55%, grade 2 diastolic dysfunction, mild pulmonary hypertension, mild aortic stenosis, mild to moderate mitral regurgitation -has prior hx of CAD -continue to complain of R wrist pain, negative DVT on venous duplex Status: Acute Code(s): I24.9 - Acute ischemic heart disease, unspecified (3) Heart failure with preserved ejection fraction: -Noted acute exacerbation of chronic diastolic CHF as evidenced by symptomatic dyspnea, elevated BNP of 8389 -Echo as noted above -Off diuresis due to renal impairment -Continue to monitor I's and O's, daily weight, renal function and electrolytes -cardiac diet as tolerated -Developed flash pulmonary edema while on IV fluid hydration given secondary to worsening renal impairment. IV fluid discontinued Status: Acute Qualifiers: Heart failure chronicity: acute on chronic Qualified Code(s): I50.33 - Acute on chronic diastolic (congestive) heart failure Code(s): I50.30 - Unspecified diastolic (congestive) heart failure Additional A&P Information -Morbid obesity: BMI-44 kg/m2 -Recently treated for UTI, with Cipro -IDDM type II; A1c-7.1; Accucheks, ISS -HTN; VSS: on oral antihypertensive regimen -Hyperlipidemia; on statin; lipid panel noted -SOB: screened for influenza due to SOB, negative; CXR-interstitial fibrosis; supplemental oxygen as needed; continue to monitor respiratory status -Chronic atrial fibrillation, on BB, Eliquis; off heparin drip; intermittently bradycardic, during last admission was noted to have atrial fibrillation with slow VR -Hypothyroidism; on Levothyroxine -Acute on chronic normocytic anemia; baseline Hg 9-10; iron panel noted; continue to monitor H/H. Has had GI workup done with colonoscopy (11/2014) unremarkable other than diverticuli and 5 mm sessile polyp in sigmoid colon (pathology-benign mucosa with edema and surface hyperplastic change, no malignancy). Likely anemia of chronic disease. Worsening anemia so s/p transfusion of 1 unit PRBCs (with caution to avoid fluid overload, on 09/09). On IV iron -hx of seronegative RA and OA -DVT ppx not needed as on Eliquis (on hold due to worsening anemia, potential need for HD catheter placement) -Dispo: home with continued HH services ([facility]) -Code status: FULL code Attestations Medical Necessity Statement*: Patient requires hospitalization for continued management of contrast-induced nephropathy, currently requiring Lasix drip with close monitoring of urine output and renal function. Time Spent in Patient Care: Greater than 35 minutes (>than 50% of time spent in counselling and/or direct pt care on unit) . Coding Level of Care Code Acute Person Investigator for Chg Fwd Exam Comprehensive Diagnoses Acute kidney injury superimposed on chronic kidney disease N17.9; N18.9 ACS (acute coronary syndrome) I24.9 Heart failure with preserved ejection fraction I50.33 Heart failure chronicity: acute on chronic
--- NOTE | 2019-09-11 09:22 | XRR_ITS ---
PROCEDURE INFORMATION: Exam: XR Chest, 1 View Exam date and time: 09/11/2019 9:23 AM Age: 68 years old Clinical indication: Shortness of breath TECHNIQUE: Imaging protocol: XR of the chest Views: 1 view. COMPARISON: CR XR chest 1V portable [id number] 09/05/2019 2:27 PM FINDINGS: Lungs: There are unchanged coarse interstitial markings. There is no focal consolidation. Pleural space: No significant pleural effusion. No discernible pneumothorax. Heart/Mediastinum: The heart remains enlarged and unchanged. A hiatal hernia is questioned. Bones/joints: Degenerative changes of the spine and bilateral shoulders are noted. XR/XR chest 1V portable [id number] IMPRESSION: 1. No radiographic evidence of an acute cardiopulmonary process.
--- NOTE | 2019-09-11 09:49 | PM.PN ---
Subjective Subjective: Interval history: Feels ok. Breathing is better. UO overnight marginal at 550ml and this morning she has made .300ml in 3 hrs. Remains on Lasix 10mg iv/hrly. Mild LE edema. On nasal O2. Medications: Reviewed: Yes Medication Review Details: Active Medications Generic Name Dose Route Start Last Admin Trade Name Freq PRN Reason Stop Dose Admin Acetaminophen 650 mg 09/06/19 12:01 09/08/19 20:10 Tylenol PO 650 mg Q6H PRN Administration MILD PAIN Alprazolam 0.25 mg 09/06/19 12:01 09/10/19 00:03 Xanax PO 0.25 mg TID PRN Administration ANXIETY Atorvastatin Calci um 80 mg 09/05/19 21:00 09/09/19 20:16 Lipitor PO 80 mg BEDTIME PINA Administration Atropine Sulfate 0.5 mg 09/06/19 12:01 Atropine IVP PRN PRN Symptomatic cate cardia Clopidogrel Bisulf ate 75 mg 09/06/19 12:05 09/09/19 08:33 Plavix PO 75 mg DAILY PINA Administration Dextrose 25 ml 09/05/19 20:40 D50w IVP ONCE PRN hypoglycemia prot ocol Protocol Dextrose 50 ml 09/05/19 20:40 D50w IVP PRN PRN hypoglycemia prot ocol Protocol Fentanyl 1 patch 09/05/19 20:45 09/08/19 21:00 Duragesic 50 Mcg Patch TRANSDERMA 1 patch Q72H PINA Administration Gabapentin 100 mg 09/05/19 21:00 09/09/19 20:16 Neurontin PO 100 mg BEDTIME PINA Administration Glucagon 1 mg 09/05/19 20:40 Glucagen IM ONCE PRN Adult Acute Hypog lycemia Prot. Protocol Dextrose 500 mls @ 100 mls /hr 09/05/19 20:40 D5w IV ONCE PRN Adult Acute Hypog lycemia Prot Protocol Furosemide 100 mg/ Sodium 50 mls @ 5 mls/hr 09/09/19 14:00 09/09/19 23:14 Chloride IV 10 mg/hr .Q10H PINA 5 mls/hr Administration Protocol 10 MG/HR Insulin Aspart 0 unit 09/06/19 08:00 09/10/19 07:41 Novolog SUBCUT Not Given TIDWM PINA Protocol Insulin Glargine 12 unit 09/06/19 21:00 09/09/19 20:16 Lantus SUBCUT 12 unit BEDTIME PINA Administration Isosorbide Mononit rate 30 mg 09/06/19 09:00 09/06/19 08:03 Imdur PO Not Given BID PINA Levothyroxine Sodi um 50 mcg 09/06/19 09:00 09/10/19 08:48 Synthroid PO 50 mcg DAILY PINA Administration Magnesium Hydroxid e 30 ml 09/06/19 12:01 Milk Of Magnesia PO DAILY PRN CONSTIPATION Naloxone HCl 0.1 mg 09/06/19 12:01 Narcan IVP Q2M PRN RESPIRATORY RATE < 8/MIN Nifedipine 30 mg 09/07/19 09:00 09/10/19 08:48 Procardia Xl PO 30 mg DAILY PINA Administration Nitroglycerin 0.4 mg 09/06/19 12:01 Nitrostat SUBLINGUAL Q5M PRN CHEST PAIN Nitroglycerin 1 inch 09/09/19 14:00 09/09/19 20:16 Nitro-Bid TOPICAL 1 inch Q6H PRN Administration CHEST PAIN Ondansetron HCl 4 mg 09/05/19 20:37 09/10/19 05:01 Zofran IVP 4 mg Q6H PRN Administration NAUSEA AND VOMITI NG Potassium Chloride 10 meq 09/06/19 09:00 09/09/19 08:33 Klor-Con 10 PO 10 meq DAILY PINA Administration Temazepam 15 mg 09/06/19 12:01 09/09/19 20:16 Restoril PO 15 mg BEDTIME PRN Administration INSOMNIA duloxetine [From Cymbalta] Allergy (Verified 09/10/19 06:29) Unknown prochlorperazine [From Compazine] Allergy (Verified 09/10/19 06:29) ALGY-Anaphylaxis sucralfate [From Carafate] Allergy (Verified 09/10/19 06:29) Unknown trazodone Allergy (Verified 09/10/19 06:29) Unknown zaleplon [From Sonata] Allergy (Verified 09/10/19 06:29) Unknown Vitals/I&O/Wt Last Vital Signs Temp 97.9 F 09/11/19 04:00 Pulse 69 09/11/19 08:00 Resp 16 09/11/19 08:00 BP 127/53 09/11/19 08:00 Pulse Ox 98 09/11/19 08:00 09/10/19 09/11/19 09/11/19 22:59 06:59 14:59 Intake Total 636 / 800 50 / 50 Output Total 140 / 440 550 / 990 350 / 350 Balance 496 / 360 -550 / -190 -300 / -300 Physical Exam Const: COMMON NORMALS: no apparent distress, average body habitus and oriented x3 HENMT: COMMON NORMALS: normocephalic and head/scalp atraumatic HEAD & SCALP: normocephalic and atraumatic Eye: COMMON NORMALS: PERRL and EOMs intact bilaterally PUPIL: Yes PERRL Neck/C-Spine: COMMON NORMALS: no JVD Lymph: LYMPHATIC: no lymphadenopathy noted Resp: COMMON NORMALS: normal respiratory effort and no retractions Cardio: COMMON NORMALS: no JVD and regular rate RATE: regular rate GI: COMMON NORMALS: normal to inspection, nondistended, normoactive bowel sounds Extremity: COMMON NORMALS: normal to inspection and full ROM GENERAL: Yes edema Neuro: COMMON NORMALS: oriented x3 Urinary Catheter Management^: José: Cath Placed During This Visit: yes, but has since been removed by the nurse Reason for Continuing Indwelling Catheter: Acute Urinary Retention or Obstruction Urinary Catheter Date of Insertion: 09/09/19 Urinary Catheter Time of Insertion: 11:31 Date Urinary Catheter Removed: 09/07/19 Time Urinary Catheter Discontinued: 13:08 Data : 09/11/19 04:34 09/11/19 04:34 Micro: Microbiology 09/05/19 14:29 Blood Culture - Final Blood NO GROWTH AFTER 5 DAYS 09/05/19 14:20 Blood Culture - Final Blood NO GROWTH AFTER 5 DAYS A&P Additional A&P Information 1. FARRUKH - appears consistent with contrast related injury - creatinine increasing, UO appears to be better, slowly picking up - no acute indication for dialysis but she is very high risk for needing dialysis in the next 24-48hrs. Given the potential for complications of line placement I agree with deferring placement today - switch iv lasix to Bumex (her outpatient med) - limit vol where at all possible - CXR today booked - am labs - strict Is and Os - avoid the usuals 2. Anemia - will defer to cardiology; Hb 8.3 - venofer added 3. Hyperphos - add phoslo with meals - d/w Dr Patel Attestations Medical Necessity Statement*: eval for renal failure Coding Level of Care Code Acute Director Of Alumni Relations for Kendall Mckeon
[2019-09-11] MEDS: clopidogrel 75 mg Tablet PO (10:05)
[2019-09-11] MEDS: nitroglycerin 1 gm/inch oint Pkt 1 INCH TOPICAL (10:05)
--- NOTE | 2019-09-11 11:00 | PC.NURSE ---
Sitting up in bed and transferred to chair. Pt encourage to sat up in bed. Sits up fairly well while eating her lunch. Sat up in chair for a short period with moderate assistance in transfers.
[2019-09-11 11:24] LABS: Glucose Point of Care 169 mg/dL (70-110)
--- NOTE | 2019-09-11 15:21 | PM.PN ---
Subjective Subjective: Interval history: Continues to feel better symptom banks. Denies shortness of breath. Atypical chest pressure on the upper left side Medications: Reviewed: Yes Medication Review Details: Active Medications Generic Name Dose Route Start Last Admin Trade Name Freq PRN Reason Stop Dose Admin Acetaminophen 650 mg 09/06/19 12:01 09/08/19 20:10 Tylenol PO 650 mg Q6H PRN Administration MILD PAIN Alprazolam 0.25 mg 09/06/19 12:01 09/10/19 00:03 Xanax PO 0.25 mg TID PRN Administration ANXIETY Atorvastatin Calci um 80 mg 09/05/19 21:00 09/09/19 20:16 Lipitor PO 80 mg BEDTIME PINA Administration Atropine Sulfate 0.5 mg 09/06/19 12:01 Atropine IVP PRN PRN Symptomatic cate cardia Clopidogrel Bisulf ate 75 mg 09/06/19 12:05 09/09/19 08:33 Plavix PO 75 mg DAILY PINA Administration Dextrose 25 ml 09/05/19 20:40 D50w IVP ONCE PRN hypoglycemia prot ocol Protocol Dextrose 50 ml 09/05/19 20:40 D50w IVP PRN PRN hypoglycemia prot ocol Protocol Fentanyl 1 patch 09/05/19 20:45 09/08/19 21:00 Duragesic 50 Mcg Patch TRANSDERMA 1 patch Q72H PINA Administration Gabapentin 100 mg 09/05/19 21:00 09/09/19 20:16 Neurontin PO 100 mg BEDTIME PINA Administration Glucagon 1 mg 09/05/19 20:40 Glucagen IM ONCE PRN Adult Acute Hypog lycemia Prot. Protocol Dextrose 500 mls @ 100 mls /hr 09/05/19 20:40 D5w IV ONCE PRN Adult Acute Hypog lycemia Prot Protocol Furosemide 100 mg/ Sodium 50 mls @ 5 mls/hr 09/09/19 14:00 09/09/19 23:14 Chloride IV 10 mg/hr .Q10H PINA 5 mls/hr Administration Protocol 10 MG/HR Insulin Aspart 0 unit 09/06/19 08:00 09/10/19 07:41 Novolog SUBCUT Not Given TIDWM PINA Protocol Insulin Glargine 12 unit 09/06/19 21:00 09/09/19 20:16 Lantus SUBCUT 12 unit BEDTIME PINA Administration Isosorbide Mononit rate 30 mg 09/06/19 09:00 09/06/19 08:03 Imdur PO Not Given BID PINA Levothyroxine Sodi um 50 mcg 09/06/19 09:00 09/10/19 08:48 Synthroid PO 50 mcg DAILY PINA Administration Magnesium Hydroxid e 30 ml 09/06/19 12:01 Milk Of Magnesia PO DAILY PRN CONSTIPATION Naloxone HCl 0.1 mg 09/06/19 12:01 Narcan IVP Q2M PRN RESPIRATORY RATE < 8/MIN Nifedipine 30 mg 09/07/19 09:00 09/10/19 08:48 Procardia Xl PO 30 mg DAILY PINA Administration Nitroglycerin 0.4 mg 09/06/19 12:01 Nitrostat SUBLINGUAL Q5M PRN CHEST PAIN Nitroglycerin 1 inch 09/09/19 14:00 09/09/19 20:16 Nitro-Bid TOPICAL 1 inch Q6H PRN Administration CHEST PAIN Ondansetron HCl 4 mg 09/05/19 20:37 09/10/19 05:01 Zofran IVP 4 mg Q6H PRN Administration NAUSEA AND VOMITI NG Potassium Chloride 10 meq 09/06/19 09:00 09/09/19 08:33 Klor-Con 10 PO 10 meq DAILY PINA Administration Temazepam 15 mg 09/06/19 12:01 09/09/19 20:16 Restoril PO 15 mg BEDTIME PRN Administration INSOMNIA duloxetine [From Cymbalta] Allergy (Verified 09/10/19 06:29) Unknown prochlorperazine [From Compazine] Allergy (Verified 09/10/19 06:29) ALGY-Anaphylaxis sucralfate [From Carafate] Allergy (Verified 09/10/19 06:29) Unknown trazodone Allergy (Verified 09/10/19 06:29) Unknown zaleplon [From Sonata] Allergy (Verified 09/10/19 06:29) Unknown Vitals/I&O/Wt Last Vital Signs Temp 97.9 F 09/11/19 04:00 Pulse 92 09/11/19 11:58 Resp 16 09/11/19 11:58 BP 136/62 09/11/19 11:58 Pulse Ox 99 09/11/19 11:58 09/11/19 09/11/19 09/11/19 06:59 14:59 22:59 Intake Total 604 / 604 Output Total 550 / 990 670 / 670 Balance -550 / -190 -66 / -66 Physical Exam Narrative: EXAM NARRATIVE: GENERAL: Patient is alert, awake and oriented x3. NECK: No jugular vein distension. HEENT: No cyanosis. No icterus. No pallor. HEART: Irregularly irregular S1 and S2. No murmur, rub or gallop. LUNGS: Clear to auscultate bilaterally. ABDOMEN: Soft, nontender and nondistended. Positive bowel sounds. No guarding, rebound or tenderness. CENTRAL NERVOUS SYSTEM: Grossly nonfocal. EXTREMITIES: Lower extremities with trace edema bilaterally. Const: COMMON NORMALS: oriented x3; apparent distress EXAM LIMITATIONS: no altered mental status and no behavioral limitations GENERAL APPEARANCE: cooperative and comfortable ORIENTATION/CONSCIOUSNESS: Yes awake, Yes oriented to person, Yes oriented to place and Yes oriented to time HENMT: COMMON NORMALS: normocephalic HEAD & SCALP: normocephalic Resp: EFFORT & INSPECTION: Yes able to speak in complete sentences (Not able to complete sentences, short of breath) and Yes tachypneic AUSCULTATION: crackles and rales bilateral Cardio: COMMON NORMALS: regular rate (Irregularly irregular), S1 normal heart sound and S2 normal heart sound RATE: regular rate (Irregularly irregular) HEART SOUNDS: S1 normal and S2 normal Extremity: OTHER: No bilateral lower extremity edema Neuro: COMMON NORMALS: oriented x3 and CN's II-XII intact bilaterally SENSORIUM/ORIENTATION: Yes oriented to person, Yes oriented to place and Yes oriented to time Psych: COMMON NORMALS: mental status grossly normal Urinary Catheter Management^: José: Cath Placed During This Visit: yes, but has since been removed by the nurse Reason for Continuing Indwelling Catheter: Acute Urinary Retention or Obstruction Urinary Catheter Date of Insertion: 09/09/19 Urinary Catheter Time of Insertion: 11:31 Date Urinary Catheter Removed: 09/07/19 Time Urinary Catheter Discontinued: 13:08 Data : 09/11/19 04:34 09/11/19 04:34 Micro: Microbiology 09/05/19 14:29 Blood Culture - Final Blood NO GROWTH AFTER 5 DAYS 09/05/19 14:20 Blood Culture - Final Blood NO GROWTH AFTER 5 DAYS A&P Assessment and plan (1) ACS (acute coronary syndrome): Stable continue medicine Status: Acute Code(s): I24.9 - Acute ischemic heart disease, unspecified (2) Acute kidney injury superimposed on chronic kidney disease: Worsening of creatinine, contrast induced nephropathy as we know it will peaked at 3-5 days and hopefully will turnaround. Potassium is within upper normal limits. Continue to monitor. Nephrology is on board Status: Acute Code(s): N17.9 - Acute kidney failure, unspecified; N18.9 - Chronic kidney disease, unspecified (3) Heart failure with preserved ejection fraction: Well compensated now. Patient is going to be switched to by mouth diuretics. Status: Acute Qualifiers: Heart failure chronicity: acute on chronic Qualified Code(s): I50.33 - Acute on chronic diastolic (congestive) heart failure Code(s): I50.30 - Unspecified diastolic (congestive) heart failure (4) Atrial fibrillation by electrocardiogram: Rate controlled Status: Acute Code(s): I48.91 - Unspecified atrial fibrillation (5) Aortic stenosis: [id number] aortic stenosis. We'll continue to monitor. Status: Acute Qualifiers: Cardiac valve disease etiology: nonrheumatic Qualified Code(s): I35.0 - Nonrheumatic aortic (valve) stenosis Code(s): I35.0 - Nonrheumatic aortic (valve) stenosis (6) Diabetes: As per medicine. Status: Acute Qualifiers: Diabetes mellitus type: type 2 Code(s): E11.9 - Type 2 diabetes mellitus without complications Attestations Medical Necessity Statement*: Requires continuation hospitalization for above defined Coding Level of Care Code Established Pt Acute [facility]el [facility] for [facility] [place] Fwd Patient Type Established History Expanded Problem Focused Exam Expanded Problem Focused Medical Decision Making Moderate Complexity Diagnoses ACS (acute coronary syndrome) I24.9 Acute kidney injury superimposed on chronic kidney disease N17.9; N18.9 Heart failure with preserved ejection fraction I50.33 Heart failure chronicity: acute on chronic Atrial fibrillation by electrocardiogram I48.91 Aortic stenosis I35.0 Cardiac valve disease etiology: nonrheumatic Diabetes E11.9 Diabetes mellitus type: type 2
[2019-09-11] MEDS: bumetanide 1 mg Tablet 2 MG PO (17:24)
[2019-09-11] MEDS: isosorbide mononitrate ER 30 mg Tablet PO (17:24)
[2019-09-11 17:34] LABS: Glucose Point of Care 188 mg/dL (70-110)
--- NOTE | 2019-09-11 19:40 | PC.NURSE ---
Patient complaint of constipation. Patient stated it had been a couple days since her last bowel movement. This nurse offered her warm prune juice and the milk of magnesia that was on her MAR. Patient stated she wanted to try the warm prune juice first and that was given to the patient. Will continue to monitor.
[2019-09-11 20:47] LABS: Glucose Point of Care 208 mg/dL (70-110)
[2019-09-11] MEDS: temazepam 15 mg Capsule PO (20:58)
[2019-09-11] MEDS: gabapentin 100 mg Capsule PO (20:58)
[2019-09-11] MEDS: atorvastatin 40 mg Tablet 80 MG PO (20:59)
[2019-09-11] MEDS: insulin glargine 100 units/1 mL 12 UNIT SUBCUT (21:02)
[2019-09-11] MEDS: fentaNYL 50 mcg Patch 1 PATCH TRANSDERMA (21:04)
[2019-09-12] VITALS (8 sets, daily range): BP systolic 119–138; BP diastolic 50–70; PULSE 70–78; RESP 14–20; TEMP 36.7–36.9; O2SAT 94–100
[2019-09-12 05:10] LABS: Basophils % 0.7 %; Eosinophils # 0.2 10^3/uL (0.0-0.8); Eosinophils % 3.3 %; Hematocrit 25.7 % (37.0-47.0); Hemoglobin 8.2 g/dL (11.5-15.3); Lymphocytes # 0.6 10^3/uL (0.8-4.8); Lymphocytes % 11.1 %; Mean Corpuscular HGB Conc 31.9 g/dL (30.0-36.0); Mean Corpuscular Hemoglobin 28.9 pg (28.0-34.0); Mean Corpuscular Volume 90.5 fL (81-99); Monocytes # 0.7 10^3/uL (0.2-0.9); Monocytes % 11.2 %; Neutrophils # 4.2 10^3/uL (1.8-7.7); Neutrophils % 73.2 %; Nucleated Red Blood Cells % 0 %; Platelet Count 147 10^3/cmm (130-400); Red Blood Count 2.84 10^6/uL (4.1-5.3); Red Cell Distribution Width 18.1 % (12.1-15.1); White Blood Count 5.8 10^3/uL (4.0-10.0)
[2019-09-12 05:24] LABS: Alanine Aminotransferase 7 U/L (0-33); Albumin Level 3.2 g/dL (3.5-5.2); Alkaline Phosphatase 97 IU/L (35-105); Anion Gap 20.5 (5-19); Aspartate Amino Transferase 11 U/L (0-32); Blood Urea Nitrogen 79 mg/dL (8-23); Calcium 9.2 mg/dL (8.5-10.5); Carbon Dioxide 23 mmol/L (22-29); Chloride 96 mmol/L (98-107); Globulin 2.7 g/dL (1.3-4.6); Glucose 177 mg/dL (65-115); Magnesium 2.2 mg/dL (1.7-2.3); Osmolality Calculated 284 mOsm/kg (285-295); Potassium 4.5 mmol/L (3.5-5.1); Sodium 135 mmol/L (136-145); Total Bilirubin 0.7 mg/dL (0.15-1.2); Total Protein 5.9 g/dL (6.6-8.7)
[2019-09-12 06:22] LABS: Glucose Point of Care 206 mg/dL (70-110)
[2019-09-12] MEDS: acetaminophen 325 mg Tablet 650 MG PO ×2 (07:11→17:59)
[2019-09-12] MEDS: magnesium hydroxide 30 mL UDC PO (07:12)
[2019-09-12] MEDS: levothyroxine 50 mcg Tablet PO (08:01)
[2019-09-12] MEDS: clopidogrel 75 mg Tablet PO (08:01)
[2019-09-12] MEDS: isosorbide mononitrate ER 30 mg Tablet PO ×2 (08:01→17:07)
[2019-09-12] MEDS: NIFEdipine ER (24 hr) 30 mg Tablet PO (08:01)
[2019-09-12] MEDS: calcium acetate 667 mg Capsule 1334 MG PO ×3 (08:06→17:08)
--- NOTE | 2019-09-12 08:10 | PM.PN ---
Subjective Subjective: Interval history: feeling better. remains sob. weak. Medications: Reviewed: Yes Medication Review Details: Current Medications Acetaminophen (Tylenol) 650 mg PO Q6H PRN PRN Reason: MILD PAIN Last Admin: 09/12/19 07:11 Dose: 650 mg Documented by: Alprazolam (Xanax) 0.25 mg PO TID PRN PRN Reason: ANXIETY Last Admin: 09/10/19 00:03 Dose: 0.25 mg Documented by: Atorvastatin Calcium (Lipitor) 80 mg PO BEDTIME [facility] Last Admin: 09/11/19 20:59 Dose: 80 mg Documented by: Atropine Sulfate (Atropine) 0.5 mg IVP PRN PRN PRN Reason: Symptomatic bradycardia Bumetanide (Bumex) 2 mg PO BID [facility] Last Admin: 09/11/19 17:24 Dose: 2 mg Documented by: Calcium Acetate (Phoslo) 1,334 mg PO TIDWM [facility] Last Admin: 09/12/19 08:06 Dose: 1,334 mg Documented by: Clopidogrel Bisulfate (Plavix) 75 mg PO DAILY [facility] Last Admin: 09/12/19 08:01 Dose: 75 mg Documented by: Dextrose (D50w) 25 ml IVP ONCE PRN; Protocol PRN Reason: hypoglycemia protocol Dextrose (D50w) 50 ml IVP PRN PRN; Protocol PRN Reason: hypoglycemia protocol Fentanyl (Duragesic 50 Mcg Patch) 1 patch TRANSDERMA Q72H [facility] Last Admin: 09/11/19 21:04 Dose: 1 patch Documented by: Gabapentin (Neurontin) 100 mg PO BEDTIME [facility] Last Admin: 09/11/19 20:58 Dose: 100 mg Documented by: Glucagon (Glucagen) 1 mg IM ONCE PRN; Protocol PRN Reason: Adult Acute Hypoglycemia Prot. Dextrose (D5w) 500 mls @ 100 mls/hr IV ONCE PRN; Protocol PRN Reason: Adult Acute Hypoglycemia Prot Iron Sucrose 200 mg/ Sodium (Chloride) 110 mls @ 220 mls/hr IV DAILY [facility] Stop: 09/14/19 09:29 Last Infusion: 09/11/19 10:36 Dose: Infused Documented by: Insulin Aspart (Novolog) 0 unit SUBCUT TIDWM [facility]; Protocol Last Admin: 09/12/19 07:12 Dose: 6 unit Documented by: Insulin Glargine (Lantus) 12 unit SUBCUT BEDTIME [facility] Last Admin: 09/11/19 21:02 Dose: 12 unit Documented by: Isosorbide Mononitrate (Imdur) 30 mg PO BID [facility] Last Admin: 09/12/19 08:01 Dose: 30 mg Documented by: Levothyroxine Sodium (Synthroid) 50 mcg PO DAILY [facility] Last Admin: 09/12/19 08:01 Dose: 50 mcg Documented by: Magnesium Hydroxide (Milk Of Magnesia) 30 ml PO DAILY PRN PRN Reason: CONSTIPATION Last Admin: 09/12/19 07:12 Dose: 30 ml Documented by: Naloxone HCl (Narcan) 0.1 mg IVP Q2M PRN PRN Reason: RESPIRATORY RATE < 8/MIN Nifedipine (Procardia Xl) 30 mg PO DAILY [facility] Last Admin: 09/12/19 08:01 Dose: 30 mg Documented by: Nitroglycerin (Nitrostat) 0.4 mg SUBLINGUAL Q5M PRN PRN Reason: CHEST PAIN Nitroglycerin (Nitro-Bid) 1 inch TOPICAL Q6H PRN PRN Reason: CHEST PAIN Last Admin: 09/11/19 10:05 Dose: 1 inch Documented by: Ondansetron HCl (Zofran) 4 mg IVP Q6H PRN PRN Reason: NAUSEA AND VOMITING Last Admin: 09/10/19 05:01 Dose: 4 mg Documented by: Potassium Chloride (Klor-Con 10) 10 meq PO DAILY [facility] Last Admin: 09/11/19 09:54 Dose: Not Given Documented by: Temazepam (Restoril) 15 mg PO BEDTIME PRN PRN Reason: INSOMNIA Last Admin: 09/11/19 20:58 Dose: 15 mg Documented by: Vitals/I&O/Wt Last Vital Signs Temp 98.1 F 09/12/19 07:33 Pulse 73 09/12/19 07:33 Resp 15 09/12/19 07:33 BP 135/54 09/12/19 07:33 Pulse Ox 99 09/12/19 07:33 09/11/19 09/12/19 09/12/19 22:59 06:59 14:59 Intake Total 630 / 1344 240 / 1584 Output Total 1040 / 1710 1350 / 3060 Balance -410 / -366 -1110 / -1476 Physical Exam Narrative: EXAM NARRATIVE: obese female in bed uncomfortable and SOB. 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 +BS ext 1+ b/l edema neuro- a,a, o x 3 mood -anxious Urinary Catheter Management^: José: Cath Placed During This Visit: yes, but has since been removed by the nurse Reason for Continuing Indwelling Catheter: Acute Urinary Retention or Obstruction Urinary Catheter Date of Insertion: 09/09/19 Urinary Catheter Time of Insertion: 11:31 Date Urinary Catheter Removed: 09/07/19 Time Urinary Catheter Discontinued: 13:08 Data : 09/12/19 04:40 09/12/19 04:40 A&P Additional A&P Information 1. FARRUKH - appears consistent with contrast related injury in setting of AMI in a diabetic. - creatinine increasing, UOP excellent- dec bumex - no acute indication for dialysis at present- will monitor uop, chemistries, uremic symptoms, and oxygenation - cxr w/o chf 2. Anemia - cont venofer 3. Hyperphos -stable on phoslo with meals -will monitor and consider changing to a non - ca based binder - d/w pt and RN Attestations Medical Necessity Statement*: farrukh, ami Time Spent in Patient Care: 16 - 35 minutes (>than 50% of time spent in counselling and/or direct pt care on unit). 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
[2019-09-12] MEDS: bumetanide 1 mg Tablet 2 MG PO (08:32)
--- NOTE | 2019-09-12 08:40 | PC.SOCIAL ---
IMM Updated Page 2 of IMM updated and given to patient. Initialed, dated, and timed and placed back in chart.
--- NOTE | 2019-09-12 08:57 | P.PN_ITS ---
Subjective Subjective: Interval history: Patient had very good urine output overnight, 1350 mL with a total of 3490 over the past 24 hours. Morning labs noted with worsening renal function, creatinine up to 6.0. Hemoglobin remained stable at 8.2. Vital signs stable. She is still requiring some supplemental oxygen. No need for dialysis at this time per nephrology. She is resting in bed, no apparent distress, denies chest pressure, has continued soreness in her R arm and feels tired today. Encouraged out of bed activity. Will request PT re- evaluation today. Medications: Reviewed: Yes Medication Review Details: Active Medications Generic Name Dose Route Start Last Admin Trade Name Freq PRN Reason Stop Dose Admin Acetaminophen 650 mg 09/06/19 12:01 09/12/19 07:11 Tylenol PO 650 mg Q6H PRN Administration MILD PAIN Alprazolam 0.25 mg 09/06/19 12:01 09/10/19 00:03 Xanax PO 0.25 mg TID PRN Administration ANXIETY Atorvastatin Calci um 80 mg 09/05/19 21:00 09/11/19 20:59 Lipitor PO 80 mg BEDTIME PINA Administration Atropine Sulfate 0.5 mg 09/06/19 12:01 Atropine IVP PRN PRN Symptomatic cate cardia Bumetanide 2 mg 09/12/19 09:00 09/12/19 08:32 Bumex PO 2 mg DAILY PINA Administration Calcium Acetate 1,334 mg 09/10/19 12:00 09/12/19 08:06 Phoslo PO 1,334 mg TIDWM PINA Administration Clopidogrel Bisulf ate 75 mg 09/06/19 12:05 09/12/19 08:01 Plavix PO 75 mg DAILY PINA Administration Dextrose 25 ml 09/05/19 20:40 D50w IVP ONCE PRN hypoglycemia prot ocol Protocol Dextrose 50 ml 09/05/19 20:40 D50w IVP PRN PRN hypoglycemia prot ocol Protocol Fentanyl 1 patch 09/05/19 20:45 09/11/19 21:04 Duragesic 50 Mcg Patch TRANSDERMA 1 patch Q72H PINA Administration Gabapentin 100 mg 09/05/19 21:00 09/11/19 20:58 Neurontin PO 100 mg BEDTIME PINA Administration Glucagon 1 mg 09/05/19 20:40 Glucagen IM ONCE PRN Adult Acute Hypog lycemia Prot. Protocol Dextrose 500 mls @ 100 mls /hr 09/05/19 20:40 D5w IV ONCE PRN Adult Acute Hypog lycemia Prot Protocol Iron Sucrose 200 m g/ Sodium 110 mls @ 220 mls /hr 09/10/19 11:30 09/12/19 08:32 Chloride IV 09/14/19 09:29 220 mls/hr DAILY PINA Administration Insulin Aspart 0 unit 09/06/19 08:00 09/12/19 07:12 Novolog SUBCUT 6 unit TIDWM PINA Administration Protocol Insulin Glargine 12 unit 09/06/19 21:00 09/11/19 21:02 Lantus SUBCUT 12 unit BEDTIME PINA Administration Isosorbide Mononit rate 30 mg 09/06/19 09:00 09/12/19 08:01 Imdur PO 30 mg BID PINA Administration Levothyroxine Sodi um 50 mcg 09/06/19 09:00 09/12/19 08:01 Synthroid PO 50 mcg DAILY PINA Administration Magnesium Hydroxid e 30 ml 09/06/19 12:01 09/12/19 07:12 Milk Of Magnesia PO 30 ml DAILY PRN Administration CONSTIPATION Naloxone HCl 0.1 mg 09/06/19 12:01 Narcan IVP Q2M PRN RESPIRATORY RATE < 8/MIN Nifedipine 30 mg 09/07/19 09:00 09/12/19 08:01 Procardia Xl PO 30 mg DAILY PINA Administration Nitroglycerin 0.4 mg 09/06/19 12:01 Nitrostat SUBLINGUAL Q5M PRN CHEST PAIN Nitroglycerin 1 inch 09/09/19 14:00 09/11/19 10:05 Nitro-Bid TOPICAL 1 inch Q6H PRN Administration CHEST PAIN Ondansetron HCl 4 mg 09/05/19 20:37 09/10/19 05:01 Zofran IVP 4 mg Q6H PRN Administration NAUSEA AND VOMITI NG Temazepam 15 mg 09/06/19 12:01 09/11/19 20:58 Restoril PO 15 mg BEDTIME PRN Administration INSOMNIA duloxetine [From Cymbalta] Allergy (Verified 09/10/19 06:29) Unknown prochlorperazine [From Compazine] Allergy (Verified 09/10/19 06:29) ALGY-Anaphylaxis sucralfate [From Carafate] Allergy (Verified 09/10/19 06:29) Unknown trazodone Allergy (Verified 09/10/19 06:29) Unknown zaleplon [From Sonata] Allergy (Verified 09/10/19 06:29) Unknown Vitals/I&O/Wt Last Vital Signs Temp 98.1 F 09/12/19 07:33 Pulse 73 09/12/19 07:33 Resp 15 09/12/19 07:33 BP 135/54 09/12/19 07:33 Pulse Ox 99 09/12/19 07:33 09/11/19 09/12/19 09/12/19 22:59 06:59 14:59 Intake Total 630 / 1344 240 / 1584 590 / 590 Output Total 1040 / 1710 1350 / 3060 430 / 430 Balance -410 / -366 -1110 / -1476 160 / 160 Physical Exam Const: COMMON NORMALS: no apparent distress and oriented x3 GENERAL APPEARANCE: cooperative and comfortable NUTRITIONAL APPEARANCE: obese morbidly obese ORIENTATION/CONSCIOUSNESS: Yes awake OTHER: -appears fatigu ed HENMT: COMMON NORMALS: normocephalic, head/scalp atraumatic, hearing grossly normal bilaterally and moist oral mucous membranes HEAD & SCALP: normocephalic and atraumatic Eye: COMMON NORMALS: PERRL, EOMs intact bilaterally and conjunctivae normal CONJUNCTIVA: Yes conjunctivae normal PUPIL: Yes PERRL Neck/C-Spine: COMMON NORMALS: full ROM GENERAL: Yes normal visual inspection and Yes trachea midline Chest: COMMONS NORMALS: inspection of chest normal and palpation of chest normal Resp: COMMON NORMALS: normal respiratory effort, no retractions, no use of accessory muscles and clear to auscultation bilaterally EFFORT & INSPECTION: Yes able to speak in complete sentences, Yes symmetric chest movement and No ta chypneic AUSCULTATION: clear to auscultation bilaterally OTHER: -on 2 L NC Cardio: COMMON NORMALS: regular rate, regular rhythm, S1 normal heart sound, S2 normal heart sound and no murmurs RATE: regular rate RHYTHM: regular rhythm HEART SOUNDS: S1 normal and S2 normal GI: COMMON NORMALS: normal to inspection, nondistended, normoactive bowel sounds, soft to palpation and non-tender INSPECTION: Yes central obesity PALPATION: Yes soft : BLADDER/KIDNEY EXAM: Yes catheter in place Catheter type (Female): urethral Extremity: COMMON NORMALS: normal to inspection, full ROM and no clubbing, cyanosis or edema; negative for no pedal edema NARRATIVE EXTREMITY EXAM: -no hematoma on inspection of R wrist, R inguinal areas -R wrist area very tender to palpation, some superficial bruising noted Neuro: COMMON NORMALS: oriented x3, moves all extremities, no focal motor deficits and no sensory deficits noted Psych: COMMON NORMALS: mental status grossly normal, thought process normal, cooperative, affect normal and speech normal SPEECH: Yes normal speech THOUGHT PROCESS: normal thought process Skin: COMMON NORMALS: no rashes or lesions noted, no jaundice, no petechiae and no mottling GENERAL SKIN EXAM: no rashes or lesions noted Urinary Catheter Management^: José: Cath Placed During This Visit: yes, but has since been removed by the nurse Reason for Continuing Indwelling Catheter: Acute Urinary Retention or Obstruction Urinary Catheter Date of Insertion: 09/09/19 Urinary Catheter Time of Insertion: 11:31 Date Urinary Catheter Removed: 09/07/19 Time Urinary Catheter Discontinued: 13:08 Data : 09/12/19 04:40 09/12/19 04:40 A&P Assessment and plan (1) Acute kidney injury superimposed on chronic kidney disease: -CKD stage 3-4, 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 On phosp binders -renally dose meds, avoid nephrotoxins, off diuretics -with gentle IVF hydration developed flash pulmonary edema; has been off IVF -suspect impairment is contrast-induced given recent coronary angiogram with intervention -Nephrology consult by Dr. Newman/Dr. Ceja appreciated -Surgery consult requested for temporary dialysis catheter placement; on hold for now as no need for emergent dialysis at this time -had been on lasix drip (09/08); switched to oral Bumex 2 mg Status: Acute Code(s): N17.9 - Acute kidney failure, unspecified; N18.9 - Chronic kidney disease, unspecified (2) ACS (acute coronary syndrome): -Presented with complaints of chest pain and shortness of breath, STEMI alert called en route to the ER -Recent admission for chest pain, had stress testing done with noted small sathya- infarct ischemia in RCA/circumflex territory, large size perfusion abnormality of moderate to severe severity of the entire inferior, mild to apical infe rolateral, apical lateral and apical watters with some reversibility in mid inferior, mid to apical inferolateral watters; EKG portion was unremarkable -Evaluated by Dr. 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 s/p cath (09/05) with intervention done (PCI of RCA and balloon angioplasty of proximal and mid diagonal branch) -Loaded with aspirin and Plavix, heparin drip; continue nitrates, statin, beta- gato, Eliquis, off heparin drip. Resume DAPT and AC; stable H/H, no need for HD temporary catheter placement currently -Troponin trend noted, significant delta change noted -serial ECGs with noted atrial fibrillation, RBBB -Telemetry monitoring -Vital signs stable, continue to monitor -Had echo done during most recent admission showing an ejection fraction of 55%, grade 2 diastolic dysfunction, mild pulmonary hypertension, mild aortic stenosis, mild to moderate mitral regurgitation -has prior hx of CAD -continues to complain of R wrist pain, negative DVT on venous duplex Status: Acute Code(s): I24.9 - Acute ischemic heart disease, unspecified (3) Heart failure with preserved ejection fraction: -Noted acute exacerbation of chronic diastolic CHF as evidenced by symptomatic dyspnea, elevated BNP of 8389 -Echo as noted above -on bumex PO -Continue to monitor I's and O's, daily weight, renal function and electrolytes -cardiac diet as tolerated -Developed flash pulmonary edema while on IV fluid hydration given secondary to worsening renal impairment. IV fluid discontinued Status: Acute Qualifiers: Heart failure chronicity: acute on chronic Qualified Code(s): I50.33 - Acute on chronic diastolic (congestive) heart failure Code(s): I50.30 - Unspecified diastolic (congestive) heart failure Additional A&P Information -Morbid obesity: BMI-44 kg/m2 -Recently treated for UTI, with Cipro -IDDM type II; A1c-7.1; Accucheks, ISS -HTN; VSS: on oral antihypertensive regimen -Hyperlipidemia; on statin; lipid panel noted -SOB: screened for influenza due to SOB, negative; CXR-interstitial fibrosis; supplemental oxygen as needed; continue to monitor respiratory status -Chronic atrial fibrillation, on BB, Eliquis; off heparin drip; intermittently bradycardic, during last admission was noted to have atrial fibrillation with sl ow VR -Hypothyroidism; on Levothyroxine -Acute on chronic normocytic anemia; baseline Hg 9-10; iron panel noted; continue to monitor H/H. Has had GI workup done with colonoscopy (11/2014) unremarkable other than diverticuli and 5 mm sessile polyp in sigmoid colon (pathology-benign mucosa with edema and surface hyperplastic change, no malignancy). Likely anemia of chronic disease. Worsening anemia so s/p transfusion of 1 unit PRBCs (with caution to avoid fluid overload, on 09/09). On IV iron -hx of seronegative RA and OA -DVT ppx not needed as on Eliquis (resume today) -Dispo: home with continued in-home services ([facility]) -Code status: FULL code Attestations Medical Necessity Statement*: Patient requires hospitalization for continued management of contrast-induced nephropathy, pending improvement in renal function. Time Spent in Patient Care: 16 - 35 minutes (>than 50% of time spent in counselling and/or direct pt care on unit) . Coding Level of Care Code Acute Testing And Regulating Chief for Chg Fwd Exam Comprehensive Diagnoses Acute kidney injury superimposed on chronic kidney disease N17.9; N18.9 ACS (acute coronary syndrome) I24.9 Heart failure with preserved ejection fraction I50.33 Heart failure chronicity: acute on chronic
[2019-09-12 10:53] LABS: Glucose Point of Care 222 mg/dL (70-110)
[2019-09-12] MEDS: aspirin 81 mg EC Tablet PO (11:42)
--- NOTE | 2019-09-12 12:00 | PC.NURSE ---
PT ambulated pt and do exercises in chair and bed. Tolerated activity using walker.
--- NOTE | 2019-09-12 14:37 | PC.NURSE ---
1 episode of mild nosebleed Pt noted to have mild nose bleed during Physical therapy activity. Will monitor. Pt denies any dizziness. BP-124/50 HR-73, o2sat 100% on 1 l/min. Dr. beckett.
[2019-09-12 16:54] LABS: Glucose Point of Care 209 mg/dL (70-110)
[2019-09-12] MEDS: apixaban 5 mg Tablet 2.5 MG PO (17:07)
[2019-09-12] MEDS: sennosides-docusate Tablet 1 TAB PO (17:55)
--- NOTE | 2019-09-12 18:51 | P.PN_ITS ---
Subjective Subjective: Interval history: Remained stable from a cardiac vascular perspective. Creatinine continues to worsen and 7.0 now. Potassium remained stable Medications: Reviewed: Yes Medication Review Details: Active Medications Generic Name Dose Route Start Last Admin Trade Name Freq PRN Reason Stop Dose Admin Acetaminophen 650 mg 09/06/19 12:01 09/12/19 07:11 Tylenol PO 650 mg Q6H PRN Administration MILD PAIN Alprazolam 0.25 mg 09/06/19 12:01 09/10/19 00:03 Xanax PO 0.25 mg TID PRN Administration ANXIETY Atorvastatin Calci um 80 mg 09/05/19 21:00 09/11/19 20:59 Lipitor PO 80 mg BEDTIME PINA Administration Atropine Sulfate 0.5 mg 09/06/19 12:01 Atropine IVP PRN PRN Symptomatic cate cardia Bumetanide 2 mg 09/12/19 09:00 09/12/19 08:32 Bumex PO 2 mg DAILY PINA Administration Calcium Acetate 1,334 mg 09/10/19 12:00 09/12/19 08:06 Phoslo PO 1,334 mg TIDWM PINA Administration Clopidogrel Bisulf ate 75 mg 09/06/19 12:05 09/12/19 08:01 Plavix PO 75 mg DAILY PINA Administration Dextrose 25 ml 09/05/19 20:40 D50w IVP ONCE PRN hypoglycemia prot ocol Protocol Dextrose 50 ml 09/05/19 20:40 D50w IVP PRN PRN hypoglycemia prot ocol Protocol Fentanyl 1 patch 09/05/19 20:45 09/11/19 21:04 Duragesic 50 Mcg Patch TRANSDERMA 1 patch Q72H PINA Administration Gabapentin 100 mg 09/05/19 21:00 09/11/19 20:58 Neurontin PO 100 mg BEDTIME PINA Administration Glucagon 1 mg 09/05/19 20:40 Glucagen IM ONCE PRN Adult Acute Hypog lycemia Prot. Protocol Dextrose 500 mls @ 100 mls /hr 09/05/19 20:40 D5w IV ONCE PRN Adult Acute Hypog lycemia Prot Protocol Iron Sucrose 200 m g/ Sodium 110 mls @ 220 mls /hr 09/10/19 11:30 09/12/19 08:32 Chloride IV 09/14/19 09:29 220 mls/hr DAILY PINA Administration Insulin Aspart 0 unit 09/06/19 08:00 09/12/19 07:12 Novolog SUBCUT 6 unit TIDWM PINA Administration Protocol Insulin Glargine 12 unit 09/06/19 21:00 09/11/19 21:02 Lantus SUBCUT 12 unit BEDTIME PINA Administration Isosorbide Mononit rate 30 mg 09/06/19 09:00 09/12/19 08:01 Imdur PO 30 mg BID PINA Administration Levothyroxine Sodi um 50 mcg 09/06/19 09:00 09/12/19 08:01 Synthroid PO 50 mcg DAILY PINA Administration Magnesium Hydroxid e 30 ml 09/06/19 12:01 09/12/19 07:12 Milk Of Magnesia PO 30 ml DAILY PRN Administration CONSTIPATION Naloxone HCl 0.1 mg 09/06/19 12:01 Narcan IVP Q2M PRN RESPIRATORY RATE < 8/MIN Nifedipine 30 mg 09/07/19 09:00 09/12/19 08:01 Procardia Xl PO 30 mg DAILY PINA Administration Nitroglycerin 0.4 mg 09/06/19 12:01 Nitrostat SUBLINGUAL Q5M PRN CHEST PAIN Nitroglycerin 1 inch 09/09/19 14:00 09/11/19 10:05 Nitro-Bid TOPICAL 1 inch Q6H PRN Administration CHEST PAIN Ondansetron HCl 4 mg 09/05/19 20:37 09/10/19 05:01 Zofran IVP 4 mg Q6H PRN Administration NAUSEA AND VOMITI NG Temazepam 15 mg 09/06/19 12:01 09/11/19 20:58 Restoril PO 15 mg BEDTIME PRN Administration INSOMNIA duloxetine [From Cymbalta] Allergy (Verified 09/10/19 06:29) Unknown prochlorperazine [From Compazine] Allergy (Verified 09/10/19 06:29) ALGY-Anaphylaxis sucralfate [From Carafate] Allergy (Verified 09/10/19 06:29) Unknown trazodone Allergy (Verified 09/10/19 06:29) Unknown zaleplon [From Sonata] Allergy (Verified 09/10/19 06:29) Unknown Vitals/I&O/Wt Last Vital Signs Temp 98.1 F 09/12/19 18:47 Pulse 78 09/12/19 18:47 Resp 16 09/12/19 18:47 BP 122/56 09/12/19 18:47 Pulse Ox 94 09/12/19 18:47 09/12/19 09/12/19 09/12/19 06:59 14:59 22:59 Intake Total 240 / 1584 940 / 940 236 / 1176 Output Total 1350 / 3060 970 / 970 890 / 1860 Balance -1110 / -1476 -30 / -30 -654 / -684 Physical Exam Narrative: EXAM NARRATIVE: GENERAL: Patient is alert, awake and oriented x3. NECK: No jugular vein distension. HEENT: No cyanosis. No icterus. No pallor. HEART: Irregularly irregular S1 and S2. No murmur, rub or gallop. LUNGS: Mild inspiratory crackles bilaterally. ABDOMEN: Soft, nontender and nondistended. Positive bowel sounds. No guarding, rebound or tenderness. CENTRAL NERVOUS SYSTEM: Grossly nonfocal. EXTREMITIES: Lower extremities with trace edema bilaterally. Const: COMMON NORMALS: oriented x3; apparent distress EXAM LIMITATIONS: no altered mental status and no behavioral limitations GENERAL APPEARANCE: cooperative and comfortable ORIENTATION/CONSCIOUSNESS: Yes awake, Yes oriented to person, Yes oriented to place and Yes oriented to time HENMT: COMMON NORMALS: normocephalic HEAD & SCALP: normocephalic Resp: EFFORT & INSPECTION: Yes able to speak in complete sentences (Not able to complete sentences, short of breath) and Yes tachypneic AUSCULTATION: crackles and rales bilateral Cardio: COMMON NORMALS: regular rate (Irregularly irregular), S1 normal heart sound and S2 normal heart sound RATE: regular rate (Irregularly irregular) HEART SOUNDS: S1 normal and S2 normal Extremity: OTHER: No bilateral lower extremity edema Neuro: COMMON NORMALS: oriented x3 and CN's II-XII intact bilaterally SENSORIUM/ORIENTATION: Yes oriented to person, Yes oriented to place and Yes oriented to time Psych: COMMON NORMALS: mental status grossly normal Urinary Catheter Management^: José: Cath Placed During This Visit: yes, but has since been removed by the nurse Reason for Continuing Indwelling Catheter: Acute Urinary Retention or Obstruction Urinary Catheter Date of Insertion: 09/09/19 Urinary Catheter Time of Insertion: 11:31 Date Urinary Catheter Removed: 09/07/19 Time Urinary Catheter Discontinued: 13:08 Data : 09/12/19 04:40 09/12/19 04:40 A&P Assessment and plan (1) ACS (acute coronary syndrome): Stable continue medicine Status: Acute Code(s): I24.9 - Acute ischemic heart disease, unspecified (2) Acute kidney injury superimposed on chronic kidney disease: Worsening of creatinine, contrast induced nephropathy as we know it will peaked at 3-5 days and hopefully will turnaround. Potassium is within upper normal limits. Continue to monitor. Decision regarding dialysis as per nephrology. Status: Acute Code(s): N17.9 - Acute kidney failure, unspecified; N18.9 - Chronic kidney disease, unspecified (3) Heart failure with preserved ejection fraction: Continue to be well compensated. Status: Acute Qualifiers: Heart failure chronicity: acute on chronic Qualified Code(s): I50.33 - Acute on chronic diastolic (congestive) heart failure Code(s): I50.30 - Unspecified diastolic (congestive) heart failure (4) Atrial fibrillation by electrocardiogram: Rate controlled Status: Acute Code(s): I48.91 - Unspecified atrial fibrillation (5) Aortic stenosis: Jdma-[id number]-[id number] aortic stenosis. We'll continue to monitor. Status: Acute Qualifiers: Cardiac valve disease etiology: nonrheumatic Qualified Code(s): I35.0 - Nonrheumatic aortic (valve) stenosis Code(s): I35.0 - Nonrheumatic aortic (valve) stenosis (6) Diabetes: As per medicine. Status: Acute Qualifiers: Diabetes mellitus type: type 2 Code(s): E11.9 - Type 2 diabetes mellitus without complications Attestations Medical Necessity Statement*: Patient Requires continuation of hospitalization for above defined care. Coding Level of Care Code Established Pt Acute Data Processing Consultant for [facility] Fwd Patient Type Established History Expanded Problem Focused Exam Expanded Problem Focused Medical Decision Making Moderate Complexity Diagnoses ACS (acute coronary syndrome) I24.9 Acute kidney injury superimposed on chronic kidney disease N17.9; N18.9 Heart failure with preserved ejection fraction I50.33 Heart failure chronicity: acute on chronic Atrial fibrillation by electrocardiogram I48.91 Aortic stenosis I35.0 Cardiac valve disease etiology: nonrheumatic Diabetes E11.9 Diabetes mellitus type: type 2
[2019-09-12 20:41] LABS: Glucose Point of Care 251 mg/dL (70-110)
[2019-09-12] MEDS: temazepam 15 mg Capsule PO (21:45)
[2019-09-12] MEDS: atorvastatin 40 mg Tablet 80 MG PO (21:45)
[2019-09-12] MEDS: gabapentin 100 mg Capsule PO (21:45)
[2019-09-12] MEDS: insulin glargine 100 units/1 mL 12 UNIT SUBCUT (21:45)
[2019-09-13] VITALS (8 sets, daily range): BP systolic 116–165; BP diastolic 56–70; PULSE 63–80; RESP 13–20; TEMP 35.9–37.2; O2SAT 95–100
[2019-09-13 05:46] LABS: Alanine Aminotransferase 7 U/L (0-33); Albumin Level 3.1 g/dL (3.5-5.2); Alkaline Phosphatase 96 IU/L (35-105); Anion Gap 19.8 (5-19); Aspartate Amino Transferase 11 U/L (0-32); Carbon Dioxide 25 mmol/L (22-29); Chloride 96 mmol/L (98-107); Globulin 3.1 g/dL (1.3-4.6); Glomerular Filtration Rate 7.7 mL/min (90-130); Glucose 139 mg/dL (65-115); Magnesium 2.2 mg/dL (1.7-2.3); Osmolality Calculated 286 mOsm/kg (285-295); Phosphorus 6.8 mg/dL (2.5-4.5); Potassium 3.8 mmol/L (3.5-5.1); Sodium 137 mmol/L (136-145); Total Bilirubin 0.6 mg/dL (0.15-1.2); Total Protein 6.2 g/dL (6.6-8.7)
[2019-09-13 06:18] LABS: Glucose Point of Care 152 mg/dL (70-110)
[2019-09-13 06:20] LABS: Blood Urea Nitrogen 82 mg/dL (8-23)
--- NOTE | 2019-09-13 06:24 | PC.NURSE ---
Patient was awake until about 22:30 watching tv then fell asleep for the night. Patient had a restful night.
[2019-09-13] MEDS: calcium acetate 667 mg Capsule 1334 MG PO ×2 (07:16→17:53)
--- NOTE | 2019-09-13 07:27 | P.PN_ITS ---
Subjective Subjective: Interval history: feels better. no n/v/f/c/rowe/d. + left sided chest pain. still wheezing but states that breathing has improved. Medications: Reviewed: Yes Medication Review Details: Current Medications Acetaminophen (Tylenol) 650 mg PO Q6H PRN PRN Reason: MILD PAIN Last Admin: 09/12/19 17:59 Dose: 650 mg Documented by: Alprazolam (Xanax) 0.25 mg PO TID PRN PRN Reason: ANXIETY Last Admin: 09/10/19 00:03 Dose: 0.25 mg Documented by: Apixaban (Eliquis) 2.5 mg PO BID [facility] Last Admin: 09/12/19 17:07 Dose: 2.5 mg Documented by: Aspirin (Aspirin Ec) 81 mg PO DAILY [facility] Last Admin: 09/12/19 11:42 Dose: 81 mg Documented by: Atorvastatin Calcium (Lipitor) 80 mg PO BEDTIME [facility] Last Admin: 09/12/19 21:45 Dose: 80 mg Documented by: Atropine Sulfate (Atropine) 0.5 mg IVP PRN PRN PRN Reason: Symptomatic bradycardia Bumetanide (Bumex) 2 mg PO DAILY [facility] Last Admin: 09/12/19 08:32 Dose: 2 mg Documented by: Calcium Acetate (Phoslo) 1,334 mg PO TIDWM [facility] Last Admin: 09/13/19 07:16 Dose: 1,334 mg Documented by: Clopidogrel Bisulfate (Plavix) 75 mg PO DAILY [facility] Last Admin: 09/12/19 08:01 Dose: 75 mg Documented by: Dextrose (D50w) 25 ml IVP ONCE PRN; Protocol PRN Reason: hypoglycemia protocol Dextrose (D50w) 50 ml IVP PRN PRN; Protocol PRN Reason: hypoglycemia protocol Fentanyl (Duragesic 50 Mcg Patch) 1 patch TRANSDERMA Q72H [facility] Last Admin: 09/11/19 21:04 Dose: 1 patch Documented by: Gabapentin (Neurontin) 100 mg PO BEDTIME [facility] Last Admin: 09/12/19 21:45 Dose: 100 mg Documented by: Glucagon (Glucagen) 1 mg IM ONCE PRN; Protocol PRN Reason: Adult Acute Hypoglycemia Prot. Dextrose (D5w) 500 mls @ 100 mls/hr IV ONCE PRN; Protocol PRN Reason: Adult Acute Hypoglycemia Prot Iron Sucrose 200 mg/ Sodium (Chloride) 110 mls @ 220 mls/hr IV DAILY [facility] Stop: 09/14/19 09:29 Last Infusion: 09/12/19 09:15 Dose: Infused Documented by: Insulin Aspart (Novolog) 0 unit SUBCUT TIDWM [facility]; Protocol Last Admin: 09/13/19 07:13 Dose: 4 unit Documented by: Insulin Glargine (Lantus) 12 unit SUBCUT BEDTIME [facility] Last Admin: 09/12/19 21:45 Dose: 12 unit Documented by: Isosorbide Mononitrate (Imdur) 30 mg PO BID [facility] Last Admin: 09/12/19 17:07 Dose: 30 mg Documented by: Levothyroxine Sodium (Synthroid) 50 mcg PO DAILY [facility] Last Admin: 09/12/19 08:01 Dose: 50 mcg Documented by: Magnesium Hydroxide (Milk Of Magnesia) 30 ml PO DAILY PRN PRN Reason: CONSTIPATION Last Admin: 09/12/19 07:12 Dose: 30 ml Documented by: Naloxone HCl (Narcan) 0.1 mg IVP Q2M PRN PRN Reason: RESPIRATORY RATE < 8/MIN Nifedipine (Procardia Xl) 30 mg PO DAILY [facility] Last Admin: 09/12/19 08:01 Dose: 30 mg Documented by: Nitroglycerin (Nitrostat) 0.4 mg SUBLINGUAL Q5M PRN PRN Reason: CHEST PAIN Nitroglycerin (Nitro-Bid) 1 inch TOPICAL Q6H PRN PRN Reason: CHEST PAIN Last Admin: 09/11/19 10:05 Dose: 1 inch Documented by: Ondansetron HCl (Zofran) 4 mg IVP Q6H PRN PRN Reason: NAUSEA AND VOMITING Last Admin: 09/10/19 05:01 Dose: 4 mg Documented by: Polyethylene Glycol (Miralax) 17 gm PO DAILY [facility] Senna/Docusate Sodium (Senna-S) 1 tab PO BID [facility] Last Admin: 09/12/19 17:55 Dose: 1 tab Documented by: Temazepam (Restoril) 15 mg PO BEDTIME PRN PRN Reason: INSOMNIA Last Admin: 09/12/19 21:45 Dose: 15 mg Documented by: Vitals/I&O/Wt Last Vital Signs Temp 97.7 F 09/13/19 04:00 Pulse 63 09/13/19 04:00 Resp 18 09/13/19 04:00 BP 127/56 09/13/19 04:00 Pulse Ox 99 09/13/19 04:00 09/12/19 09/13/19 09/13/19 22:59 06:59 14:59 Intake Total 356 / 1296 220 / 1516 Output Total 890 / 1860 1200 / 3060 Balance -534 / -564 -980 / -1544 Physical Exam Narrative: EXAM NARRATIVE: obese, comfortable in bed, vs noted heent- nc/at, eomi, anicteric neck supple lungs tight and wheezing heart reg, abd soft, nt, nd, +BS ext dec edema neuro- a,a, o x 3 pulses + b/l Urinary Catheter Management^: José: Cath Placed During This Visit: yes, but has since been removed by the nurse Reason for Continuing Indwelling Catheter: Acute Urinary Retention or Obstruction Urinary Catheter Date of Insertion: 09/09/19 Urinary Catheter Time of Insertion: 11:31 Date Urinary Catheter Removed: 09/07/19 Time Urinary Catheter Discontinued: 13:08 Data : 09/12/19 04:40 09/13/19 04:32 A&P Additional A&P Information 1. FARRUKH - appears consistent with contrast related injury in setting of AMI in a diabetic. - creatinine increasing, UOP excellent- - no acute indication for dialysis at present- will monitor uop, chemistries, uremic symptoms, and oxygenation - wheezing- repeat cxr -then adjust diuretics 2. Anemia - cont venofer 3. Hyperphos -stable on phoslo with meals -improving - d/w pt and RN Attestations Medical Necessity Statement*: ami, farrukh, dm Time Spent in Patient Care: 16 - 35 minutes Coding Level of Care Code Acute Tax Auditor for Yaneg Linda
--- NOTE | 2019-09-13 07:34 | XR_ITS ---
WS: [id number] CHEST 2 VIEWS HISTORY: sob, chf, copd COMPARISON: 09/11/2019 Lungs: Lung volumes are slightly decreased. There is mild CHF with small bilateral pleural effusions. Very slightly progressed since 09/11/2019. No pneumonia. Cardiac size: Mildly enlarged cardiac silhouette. Mediastinum/Aorta: Mild atherosclerosis aorta. Bones: Normal. XR/XR chest 2V* [id number] IMPRESSION: 1. Mild CHF with small bilateral pleural effusions. Slight progression since . 2. No pneumonia.
[2019-09-13] MEDS: acetaminophen 325 mg Tablet 650 MG PO ×2 (08:35→19:57)
[2019-09-13] MEDS: clopidogrel 75 mg Tablet PO (08:36)
[2019-09-13] MEDS: aspirin 81 mg EC Tablet PO (08:36)
[2019-09-13] MEDS: apixaban 5 mg Tablet 2.5 MG PO ×2 (08:36→17:44)
[2019-09-13] MEDS: bumetanide 1 mg Tablet 2 MG PO (08:36)
[2019-09-13] MEDS: NIFEdipine ER (24 hr) 30 mg Tablet PO (08:37)
[2019-09-13] MEDS: levothyroxine 50 mcg Tablet PO (08:37)
[2019-09-13] MEDS: sennosides-docusate Tablet 1 TAB PO ×2 (08:37→17:44)
[2019-09-13] MEDS: isosorbide mononitrate ER 30 mg Tablet PO ×2 (08:37→17:44)
[2019-09-13] MEDS: polyethylene glycol 3350 Pkt 17 gm PO (08:38)
[2019-09-13 13:27] LABS: KAPPA/LAMBDA LIGHT CHAINS FREE 1.53 (0.26-1.65); LAMBDA LIGHT CHAIN, FREE, SERU 108.2 mg/L (5.7-26.3)
--- NOTE | 2019-09-13 16:36 | PM.PN ---
Subjective Subjective: Interval history: Denies any chest pain creatinine started improving Medications: Reviewed: Yes Medication Review Details: Current Medications Acetaminophen (Tylenol) 650 mg PO Q6H PRN PRN Reason: MILD PAIN Last Admin: 09/12/19 17:59 Dose: 650 mg Documented by: Alprazolam (Xanax) 0.25 mg PO TID PRN PRN Reason: ANXIETY Last Admin: 09/10/19 00:03 Dose: 0.25 mg Documented by: Apixaban (Eliquis) 2.5 mg PO BID [facility] Last Admin: 09/12/19 17:07 Dose: 2.5 mg Documented by: Aspirin (Aspirin Ec) 81 mg PO DAILY [facility] Last Admin: 09/12/19 11:42 Dose: 81 mg Documented by: Atorvastatin Calcium (Lipitor) 80 mg PO BEDTIME [facility] Last Admin: 09/12/19 21:45 Dose: 80 mg Documented by: Atropine Sulfate (Atropine) 0.5 mg IVP PRN PRN PRN Reason: Symptomatic bradycardia Bumetanide (Bumex) 2 mg PO DAILY [facility] Last Admin: 09/12/19 08:32 Dose: 2 mg Documented by: Calcium Acetate (Phoslo) 1,334 mg PO TIDWM [facility] Last Admin: 09/13/19 07:16 Dose: 1,334 mg Documented by: Clopidogrel Bisulfate (Plavix) 75 mg PO DAILY [facility] Last Admin: 09/12/19 08:01 Dose: 75 mg Documented by: Dextrose (D50w) 25 ml IVP ONCE PRN; Protocol PRN Reason: hypoglycemia protocol Dextrose (D50w) 50 ml IVP PRN PRN; Protocol PRN Reason: hypoglycemia protocol Fentanyl (Duragesic 50 Mcg Patch) 1 patch TRANSDERMA Q72H [facility] Last Admin: 09/11/19 21:04 Dose: 1 patch Documented by: Gabapentin (Neurontin) 100 mg PO BEDTIME [facility] Last Admin: 09/12/19 21:45 Dose: 100 mg Documented by: Glucagon (Glucagen) 1 mg IM ONCE PRN; Protocol PRN Reason: Adult Acute Hypoglycemia Prot. Dextrose (D5w) 500 mls @ 100 mls/hr IV ONCE PRN; Protocol PRN Reason: Adult Acute Hypoglycemia Prot Iron Sucrose 200 mg/ Sodium (Chloride) 110 mls @ 220 mls/hr IV DAILY [facility] Stop: 09/14/19 09:29 Last Infusion: 09/12/19 09:15 Dose: Infused Documented by: Insulin Aspart (Novolog) 0 unit SUBCUT TIDWM [facility]; Protocol Last Admin: 09/13/19 07:13 Dose: 4 unit Documented by: Insulin Glargine (Lantus) 12 unit SUBCUT BEDTIME [facility] Last Admin: 09/12/19 21:45 Dose: 12 unit Documented by: Isosorbide Mononitrate (Imdur) 30 mg PO BID [facility] Last Admin: 09/12/19 17:07 Dose: 30 mg Documented by: Levothyroxine Sodium (Synthroid) 50 mcg PO DAILY [facility] Last Admin: 09/12/19 08:01 Dose: 50 mcg Documented by: Magnesium Hydroxide (Milk Of Magnesia) 30 ml PO DAILY PRN PRN Reason: CONSTIPATION Last Admin: 09/12/19 07:12 Dose: 30 ml Documented by: Naloxone HCl (Narcan) 0.1 mg IVP Q2M PRN PRN Reason: RESPIRATORY RATE < 8/MIN Nifedipine (Procardia Xl) 30 mg PO DAILY [facility] Last Admin: 09/12/19 08:01 Dose: 30 mg Documented by: Nitroglycerin (Nitrostat) 0.4 mg SUBLINGUAL Q5M PRN PRN Reason: CHEST PAIN Nitroglycerin (Nitro-Bid) 1 inch TOPICAL Q6H PRN PRN Reason: CHEST PAIN Last Admin: 09/11/19 10:05 Dose: 1 inch Documented by: Ondansetron HCl (Zofran) 4 mg IVP Q6H PRN PRN Reason: NAUSEA AND VOMITING Last Admin: 09/10/19 05:01 Dose: 4 mg Documented by: Polyethylene Glycol (Miralax) 17 gm PO DAILY [facility] Senna/Docusate Sodium (Senna-S) 1 tab PO BID [facility] Last Admin: 09/12/19 17:55 Dose: 1 tab Documented by: Temazepam (Restoril) 15 mg PO BEDTIME PRN PRN Reason: INSOMNIA Last Admin: 09/12/19 21:45 Dose: 15 mg Documented by: Vitals/I&O/Wt Last Vital Signs Temp 97.6 F 09/13/19 15:55 Pulse 72 09/13/19 16:09 Resp 13 09/13/19 16:09 BP 137/64 09/13/19 16:09 Pulse Ox 100 09/13/19 16:09 09/13/19 09/13/19 09/13/19 06:59 14:59 22:59 Intake Total 220 / 1516 710 / 710 Output Total 1200 / 3060 1250 / 1250 450 / 1700 Balance -980 / -1544 -540 / -540 -450 / -990 Physical Exam Narrative: EXAM NARRATIVE: GENERAL: Patient is alert, awake and oriented x3. NECK: No jugular vein distension. HEENT: No cyanosis. No icterus. No pallor. HEART: Irregularly irregular S1 and S2. No murmur, rub or gallop. LUNGS: Mild inspiratory crackles bilaterally. ABDOMEN: Soft, nontender and nondistended. Positive bowel sounds. No guarding, rebound or tenderness. CENTRAL NERVOUS SYSTEM: Grossly nonfocal. EXTREMITIES: Lower extremities with trace edema bilaterally. Const: COMMON NORMALS: oriented x3; apparent distress EXAM LIMITATIONS: no altered mental status and no behavioral limitations GENERAL APPEARANCE: cooperative and comfortable ORIENTATION/CONSCIOUSNESS: Yes awake, Yes oriented to person, Yes oriented to place and Yes oriented to time HENMT: COMMON NORMALS: normocephalic HEAD & SCALP: normocephalic Resp: EFFORT & INSPECTION: Yes able to speak in complete sentences (Not able to complete sentences, short of breath) and Yes tachypneic AUSCULTATION: crackles and rales bilateral Cardio: COMMON NORMALS: regular rate (Irregularly irregular), S1 normal heart sound and S2 normal heart sound RATE: regular rate (Irregularly irregular) HEART SOUNDS: S1 normal and S2 normal Extremity: OTHER: No bilateral lower extremity edema Neuro: COMMON NORMALS: oriented x3 and CN's II-XII intact bilaterally SENSORIUM/ORIENTATION: Yes oriented to person, Yes oriented to place and Yes oriented to time Psych: COMMON NORMALS: mental status grossly normal Urinary Catheter Management^: José: Cath Placed During This Visit: yes, but has since been removed by the nurse Reason for Continuing Indwelling Catheter: Accurate Measurement of Urinary Output in Critically Ill Patients Urinary Catheter Date of Insertion: 09/09/19 Urinary Catheter Time of Insertion: 11:31 Date Urinary Catheter Removed: 09/07/19 Time Urinary Catheter Discontinued: 13:08 Data : 09/12/19 04:40 09/13/19 04:32 A&P Assessment and plan (1) ACS (acute coronary syndrome): Stable Status post PCI doing fine from cardiovascular perspective. Continue medicine Status: Acute (2) Acute kidney injury superimposed on chronic kidney disease: Creatinine started improving today of 5.5. Continue to monitor. Status: Acute (3) Heart failure with preserved ejection fraction: It is well compensated now.Continue medicine Status: Acute Qualifiers: Heart failure chronicity: acute on chronic Qualified Code(s): I50.33 - Acute on chronic diastolic (congestive) heart failure (4) Atrial fibrillation by electrocardiogram: Rate controlled Status: Acute (5) Aortic stenosis: [id number] aortic stenosis. We'll continue to monitor. Status: Acute Qualifiers: Cardiac valve disease etiology: nonrheumatic Qualified Code(s): I35.0 - Nonrheumatic aortic (valve) stenosis (6) Diabetes: As per medicine. Status: Acute Qualifiers: Diabetes mellitus type: type 2 Attestations Medical Necessity Statement*: Required continuation of hospitalization for above defined care. Coding Level of Care Code Established Pt Acute Sr Community Manager for g Fwd Patient Type Established History Expanded Problem Focused Exam Expanded Problem Focused Medical Decision Making Moderate Complexity Diagnoses ACS (acute coronary syndrome) I24.9 Acute kidney injury superimposed on chronic kidney disease N17.9; N18.9 Heart failure with preserved ejection fraction I50.33 Heart failure chronicity: acute on chronic Atrial fibrillation by electrocardiogram I48.91 Aortic stenosis I35.0 Cardiac valve disease etiology: nonrheumatic Diabetes E11.9 Diabetes mellitus type: type 2
--- NOTE | 2019-09-13 17:16 | PM.PN ---
Subjective Subjective: Interval history: Patient denies any shortness of breath or chest pain. Denies abdominal pain or problems with urination. Urine appears to be dark and concentrated in José bag. Creatinine slightly improved and down to 5.5. Medications: Reviewed: Yes Medication Review Details: Current Medications Acetaminophen (Tylenol) 650 mg PO Q6H PRN PRN Reason: MILD PAIN Last Admin: 09/12/19 17:59 Dose: 650 mg Documented by: Alprazolam (Xanax) 0.25 mg PO TID PRN PRN Reason: ANXIETY Last Admin: 09/10/19 00:03 Dose: 0.25 mg Documented by: Apixaban (Eliquis) 2.5 mg PO BID [facility] Last Admin: 09/12/19 17:07 Dose: 2.5 mg Documented by: Aspirin (Aspirin Ec) 81 mg PO DAILY [facility] Last Admin: 09/12/19 11:42 Dose: 81 mg Documented by: Atorvastatin Calcium (Lipitor) 80 mg PO BEDTIME [facility] Last Admin: 09/12/19 21:45 Dose: 80 mg Documented by: Atropine Sulfate (Atropine) 0.5 mg IVP PRN PRN PRN Reason: Symptomatic bradycardia Bumetanide (Bumex) 2 mg PO DAILY [facility] Last Admin: 09/12/19 08:32 Dose: 2 mg Documented by: Calcium Acetate (Phoslo) 1,334 mg PO TIDWM [facility] Last Admin: 09/13/19 07:16 Dose: 1,334 mg Documented by: Clopidogrel Bisulfate (Plavix) 75 mg PO DAILY [facility] Last Admin: 09/12/19 08:01 Dose: 75 mg Documented by: Dextrose (D50w) 25 ml IVP ONCE PRN; Protocol PRN Reason: hypoglycemia protocol Dextrose (D50w) 50 ml IVP PRN PRN; Protocol PRN Reason: hypoglycemia protocol Fentanyl (Duragesic 50 Mcg Patch) 1 patch TRANSDERMA Q72H [facility] Last Admin: 09/11/19 21:04 Dose: 1 patch Documented by: Gabapentin (Neurontin) 100 mg PO BEDTIME [facility] Last Admin: 09/12/19 21:45 Dose: 100 mg Documented by: Glucagon (Glucagen) 1 mg IM ONCE PRN; Protocol PRN Reason: Adult Acute Hypoglycemia Prot. Dextrose (D5w) 500 mls @ 100 mls/hr IV ONCE PRN; Protocol PRN Reason: Adult Acute Hypoglycemia Prot Iron Sucrose 200 mg/ Sodium (Chloride) 110 mls @ 220 mls/hr IV DAILY [facility] Stop: 09/14/19 09:29 Last Infusion: 09/12/19 09:15 Dose: Infused Documented by: Insulin Aspart (Novolog) 0 unit SUBCUT TIDWM [facility]; Protocol Last Admin: 09/13/19 07:13 Dose: 4 unit Documented by: Insulin Glargine (Lantus) 12 unit SUBCUT BEDTIME [facility] Last Admin: 09/12/19 21:45 Dose: 12 unit Documented by: Isosorbide Mononitrate (Imdur) 30 mg PO BID [facility] Last Admin: 09/12/19 17:07 Dose: 30 mg Documented by: Levothyroxine Sodium (Synthroid) 50 mcg PO DAILY [facility] Last Admin: 09/12/19 08:01 Dose: 50 mcg Documented by: Magnesium Hydroxide (Milk Of Magnesia) 30 ml PO DAILY PRN PRN Reason: CONSTIPATION Last Admin: 09/12/19 07:12 Dose: 30 ml Documented by: Naloxone HCl (Narcan) 0.1 mg IVP Q2M PRN PRN Reason: RESPIRATORY RATE < 8/MIN Nifedipine (Procardia Xl) 30 mg PO DAILY [facility] Last Admin: 09/12/19 08:01 Dose: 30 mg Documented by: Nitroglycerin (Nitrostat) 0.4 mg SUBLINGUAL Q5M PRN PRN Reason: CHEST PAIN Nitroglycerin (Nitro-Bid) 1 inch TOPICAL Q6H PRN PRN Reason: CHEST PAIN Last Admin: 09/11/19 10:05 Dose: 1 inch Documented by: Ondansetron HCl (Zofran) 4 mg IVP Q6H PRN PRN Reason: NAUSEA AND VOMITING Last Admin: 09/10/19 05:01 Dose: 4 mg Documented by: Polyethylene Glycol (Miralax) 17 gm PO DAILY [facility] Senna/Docusate Sodium (Senna-S) 1 tab PO BID [facility] Last Admin: 09/12/19 17:55 Dose: 1 tab Documented by: Temazepam (Restoril) 15 mg PO BEDTIME PRN PRN Reason: INSOMNIA Last Admin: 09/12/19 21:45 Dose: 15 mg Documented by: Vitals/I&O/Wt Last Vital Signs Temp 97.6 F 09/13/19 15:55 Pulse 72 03/30/20 16:09 Resp 13 09/13/19 16:09 BP 137/64 09/13/19 16:09 Pulse Ox 100 09/13/19 16:09 09/13/19 09/13/19 09/13/19 06:59 14:59 22:59 Intake Total 220 / 1516 710 / 710 Output Total 1200 / 3060 1250 / 1250 450 / 1700 Balance -980 / -1544 -540 / -540 -450 / -990 Physical Exam Const: COMMON NORMALS: no apparent distress and oriented x3 Resp: COMMON NORMALS: normal respiratory effort and clear to auscultation bilaterally AUSCULTATION: clear to auscultation bilaterally Cardio: COMMON NORMALS: regular rate, regular rhythm and S2 normal heart sound RATE: regular rate RHYTHM: regular rhythm HEART SOUNDS: S2 normal OTHER: 2+ bilateral lower extremity edema, somewhat loculated mostly extending to mid leg on both sides. GI: COMMON NORMALS: normal to inspection, nondistended, normoactive bowel sounds, soft to palpation and non-tender PALPATION: Yes soft Neuro: COMMON NORMALS: oriented x3 and no focal motor deficits Urinary Catheter Management^: José: Cath Placed During This Visit: yes, but has since been removed by the nurse Reason for Continuing Indwelling Catheter: Accurate Measurement of Urinary Output in Critically Ill Patients Urinary Catheter Date of Insertion: 09/09/19 Urinary Catheter Time of Insertion: 11:31 Date Urinary Catheter Removed: 09/07/19 Time Urinary Catheter Discontinued: 13:08 Data : 09/12/19 04:40 09/13/19 04:32 A&P Assessment and plan (1) Acute kidney injury superimposed on chronic kidney disease: -CKD stage 3-4, 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 On phosp binders -renally dose meds, avoid nephrotoxins, off diuretics -with gentle IVF hydration developed flash pulmonary edema; has been off IVF -suspect impairment is contrast-induced given recent coronary angiogram with intervention -Nephrology consult by Dr. Newman/Dr. Ceja appreciated -Surgery consult requested for temporary dialysis catheter placement; on hold for now as no need for emergent dialysis at this time -had been on lasix drip (09/08); switched to oral Bumex 2 mg Status: Acute (2) ACS (acute coronary syndrome): -Presented with complaints of chest pain and shortness of breath, STEMI alert called en route to the ER -Recent admission for chest pain, had stress testing done with noted small sathya-infarct ischemia in RCA/circumflex territory, large size perfusion abnormality of moderate to severe severity of the entire inferior, mild to apical inferolateral, apical lateral and apical watters with some reversibility in mid inferior, mid to apical inferolateral watters; EKG portion was unremarkable -Evaluated by Dr. Estrada, plan for medical management as patient has pre-existing evidence of NC involving the inferolateral region that is nonviable. s/p cath (09/05) with intervention done (PCI of RCA and balloon angioplasty of proximal and mid diagonal branch) -Loaded with aspirin and Plavix, heparin drip; continue nitrates, statin, beta-gato, Eliquis, off heparin drip. Resume DAPT and AC; stable H/H, no need for HD temporary catheter placement currently -Troponin trend noted, significant delta change noted -serial ECGs with noted atrial fibrillation, RBBB -Telemetry monitoring -Vital signs stable, continue to monitor -Had echo done during most recent admission showing an ejection fraction of 55%, grade 2 diastolic dysfunction, mild pulmonary hypertension, mild aortic stenosis, mild to moderate mitral regurgitation -has prior hx of CAD -continues to complain of R wrist pain, negative DVT on venous duplex Status: Acute (3) Heart failure with preserved ejection fraction: -Noted acute exacerbation of chronic diastolic CHF as evidenced by symptomatic dyspnea, elevated BNP of 8389 -Echo as noted above -on bumex PO -Continue to monitor I's and O's, daily weight, renal function and electrolytes -cardiac diet as tolerated -Developed flash pulmonary edema while on IV fluid hydration given secondary to worsening renal impairment. IV fluid discontinued Status: Acute Qualifiers: Heart failure chronicity: acute on chronic Qualified Code(s): I50.33 - Acute on chronic diastolic (congestive) heart failure Additional A&P Information -Morbid obesity: BMI-44 kg/m2 -Recently treated for UTI, with Cipro -IDDM type II; A1c-7.1; Accucheks, ISS -HTN; VSS: on oral antihypertensive regimen -Hyperlipidemia; on statin; lipid panel noted -SOB: screened for influenza due to SOB, negative; CXR-interstitial fibrosis; supplemental oxygen as needed; continue to monitor respiratory status -Chronic atrial fibrillation, on BB, Eliquis; off heparin drip; intermittently bradycardic, during last admission was noted to have atrial fibrillation with slow VR -Hypothyroidism; on Levothyroxine -Acute on chronic normocytic anemia; baseline Hg 9-10; iron panel noted; continue to monitor H/H. Has had GI workup done with colonoscopy (11/2014) unremarkable other than diverticuli and 5 mm sessile polyp in sigmoid colon (pathology-benign mucosa with edema and surface hyperplastic change, no malignancy). Likely anemia of chronic disease. Worsening anemia so s/p transfusion of 1 unit PRBCs (with caution to avoid fluid overload, on 09/09). On IV iron -hx of seronegative RA and OA PLAN: Continue current monitoring and treatment as recommended by cardiology and nephrology. Hemodynamic stable. Check CBC and CMP in a.m. -DVT ppx not needed as on Eliquis (resume today) -Dispo: home with continued in-home services ([facility]) -Code status: FULL code Attestations Medical Necessity Statement*: Patient with CHF exacerbation as well as contrast-induced nephropathy requires close inpatient monitoring and treatment Time Spent in Patient Care: 16 - 35 minutes Coding Level of Care Code Acute Advice Clerk for Kendall Fwd Diagnoses Acute kidney injury superimposed on chronic kidney disease N17.9; N18.9 ACS (acute coronary syndrome) I24.9 Heart failure with preserved ejection fraction I50.33 Heart failure chronicity: acute on chronic
--- NOTE | 2019-09-13 17:50 | PC.NURSE ---
Administered 8 units of Novolog per protocol for blood sugar of 246. Accu Check machine is not transferring data.
[2019-09-13] MEDS: insulin glargine 100 units/1 mL 12 UNIT SUBCUT (19:56)
[2019-09-13] MEDS: gabapentin 100 mg Capsule PO (19:57)
[2019-09-13] MEDS: atorvastatin 40 mg Tablet 80 MG PO (19:57)
[2019-09-13 20:56] LABS: Glucose Point of Care 211 mg/dL (70-110)
[2019-09-13 20:56] LABS: Glucose Point of Care 245 mg/dL (70-110)
[2019-09-13 20:56] LABS: Glucose Point of Care 246 mg/dL (70-110)
--- NOTE | 2019-09-13 21:19 | PC.NURSE ---
patient feeling better, encouraged she can go home in a couple days. LS clear if diminished, right arm still very tender she says, complain of same headache going down to neck. tylenol given.
[2019-09-14] VITALS (9 sets, daily range): BP systolic 95–141; BP diastolic 41–66; PULSE 69–83; RESP 12–21; TEMP 36.5–37; O2SAT 96–100
[2019-09-14 04:40] LABS: Basophils % 0.7 %; Eosinophils # 0.3 10^3/uL (0.0-0.8); Hematocrit 23.8 % (37.0-47.0); Hemoglobin 7.6 g/dL (11.5-15.3); Lymphocytes # 0.9 10^3/uL (0.8-4.8); Mean Corpuscular HGB Conc 31.9 g/dL (30.0-36.0); Mean Corpuscular Hemoglobin 29.3 pg (28.0-34.0); Mean Corpuscular Volume 91.9 fL (81-99); Mean Platelet Volume 10.5 fL (7.4-10.4); Monocytes # 0.8 10^3/uL (0.2-0.9); Neutrophils # 3.5 10^3/uL (1.8-7.7); Neutrophils % 63.9 %; Nucleated Red Blood Cells % 0 %; Platelet Count 146 10^3/cmm (130-400); Red Blood Count 2.59 10^6/uL (4.1-5.3); Red Cell Distribution Width 17.2 % (12.1-15.1); White Blood Count 5.4 10^3/uL (4.0-10.0)
[2019-09-14 04:58] LABS: Alanine Aminotransferase 9 U/L (0-33); Albumin Level 3.1 g/dL (3.5-5.2); Alkaline Phosphatase 107 IU/L (35-105); Anion Gap 18.5 (5-19); Aspartate Amino Transferase 16 U/L (0-32); Blood Urea Nitrogen 77 mg/dL (8-23); Calcium 9.2 mg/dL (8.5-10.5); Carbon Dioxide 27 mmol/L (22-29); Chloride 97 mmol/L (98-107); Globulin 2.9 g/dL (1.3-4.6); Glomerular Filtration Rate 10.5 mL/min (90-130); Glucose 149 mg/dL (65-115); Osmolality Calculated 291 mOsm/kg (285-295); Phosphorus 5.7 mg/dL (2.5-4.5); Potassium 3.5 mmol/L (3.5-5.1); Sodium 139 mmol/L (136-145); Total Bilirubin 0.5 mg/dL (0.15-1.2)
[2019-09-14 06:22] LABS: Glucose Point of Care 156 mg/dL (70-110)
--- NOTE | 2019-09-14 06:38 | P.PN_ITS ---
Subjective Subjective: Interval history: still w/ CP. no n/v/f/c/rowe/d/sob. Medications: Reviewed: Yes Medication Review Details: Current Medications Acetaminophen (Tylenol) 650 mg PO Q6H PRN PRN Reason: MILD PAIN Last Admin: 09/13/19 19:57 Dose: 650 mg Documented by: Alprazolam (Xanax) 0.25 mg PO TID PRN PRN Reason: ANXIETY Last Admin: 09/10/19 00:03 Dose: 0.25 mg Documented by: Apixaban (Eliquis) 2.5 mg PO BID [facility] Last Admin: 09/13/19 17:44 Dose: 2.5 mg Documented by: Aspirin (Aspirin Ec) 81 mg PO DAILY [facility] Last Admin: 09/13/19 08:36 Dose: 81 mg Documented by: Atorvastatin Calcium (Lipitor) 80 mg PO BEDTIME [facility] Last Admin: 09/13/19 19:57 Dose: 80 mg Documented by: Atropine Sulfate (Atropine) 0.5 mg IVP PRN PRN PRN Reason: Symptomatic bradycardia Bumetanide (Bumex) 2 mg PO DAILY [facility] Last Admin: 09/13/19 08:36 Dose: 2 mg Documented by: Calcium Acetate (Phoslo) 1,334 mg PO TIDWM [facility] Last Admin: 09/13/19 17:53 Dose: 1,334 mg Documented by: Clopidogrel Bisulfate (Plavix) 75 mg PO DAILY [facility] Last Admin: 09/13/19 08:36 Dose: 75 mg Documented by: Dextrose (D50w) 25 ml IVP ONCE PRN; Protocol PRN Reason: hypoglycemia protocol Dextrose (D50w) 50 ml IVP PRN PRN; Protocol PRN Reason: hypoglycemia protocol Fentanyl (Duragesic 50 Mcg Patch) 1 patch TRANSDERMA Q72H [facility] Last Admin: 09/11/19 21:04 Dose: 1 patch Documented by: Gabapentin (Neurontin) 100 mg PO BEDTIME [facility] Last Admin: 09/13/19 19:57 Dose: 100 mg Documented by: Glucagon (Glucagen) 1 mg IM ONCE PRN; Protocol PRN Reason: Adult Acute Hypoglycemia Prot. Dextrose (D5w) 500 mls @ 100 mls/hr IV ONCE PRN; Protocol PRN Reason: Adult Acute Hypoglycemia Prot Iron Sucrose 200 mg/ Sodium (Chloride) 110 mls @ 220 mls/hr IV DAILY [facility] Stop: 09/14/19 09:29 Last Infusion: 09/13/19 09:10 Dose: Infused Documented by: Insulin Aspart (Novolog) 0 unit SUBCUT TIDWM [facility]; Protocol Last Admin: 09/13/19 17:45 Dose: 8 unit Documented by: Insulin Glargine (Lantus) 12 unit SUBCUT BEDTIME [facility] Last Admin: 09/13/19 19:56 Dose: 12 unit Documented by: Isosorbide Mononitrate (Imdur) 30 mg PO BID [facility] Last Admin: 09/13/19 17:44 Dose: 30 mg Documented by: Levothyroxine Sodium (Synthroid) 50 mcg PO DAILY [facility] Last Admin: 09/13/19 08:37 Dose: 50 mcg Documented by: Magnesium Hydroxide (Milk Of Magnesia) 30 ml PO DAILY PRN PRN Reason: CONSTIPATION Last Admin: 09/12/19 07:12 Dose: 30 ml Documented by: Naloxone HCl (Narcan) 0.1 mg IVP Q2M PRN PRN Reason: RESPIRATORY RATE < 8/MIN Nifedipine (Procardia Xl) 30 mg PO DAILY [facility] Last Admin: 09/13/19 08:37 Dose: 30 mg Documented by: Nitroglycerin (Nitrostat) 0.4 mg SUBLINGUAL Q5M PRN PRN Reason: CHEST PAIN Nitroglycerin (Nitro-Bid) 1 inch TOPICAL Q6H PRN PRN Reason: CHEST PAIN Last Admin: 09/11/19 10:05 Dose: 1 inch Documented by: Ondansetron HCl (Zofran) 4 mg IVP Q6H PRN PRN Reason: NAUSEA AND VOMITING Last Admin: 09/10/19 05:01 Dose: 4 mg Documented by: Polyethylene Glycol (Miralax) 17 gm PO DAILY [facility] Last Admin: 09/13/19 08:38 Dose: 17 gm Documented by: Senna/Docusate Sodium (Senna-S) 1 tab PO BID [facility] Last Admin: 09/13/19 17:44 Dose: 1 tab Documented by: Temazepam (Restoril) 15 mg PO BEDTIME PRN PRN Reason: INSOMNIA Last Admin: 09/12/19 21:45 Dose: 15 mg Documented by: Vitals/I&O/Wt Last Vital Signs Temp 98.6 F 09/14/19 04:00 Pulse 69 09/14/19 04:00 Resp 13 09/14/19 04:00 BP 126/56 09/14/19 04:00 Pulse Ox 98 09/14/19 04:00 09/13/19 09/13/19 09/14/19 14:59 22:59 06:59 Intake Total 710 / 710 540 / 1250 Output Total 1250 / 1250 1400 / 2650 1550 / 4200 Balance -540 / -540 -860 / -1400 -1550 / -2950 Physical Exam Narrative: EXAM NARRATIVE: obese, comfortable in bed, vs noted heent- nc/at, eomi, anicteric neck supple lungs diffuse wheezing heart reg, +STEPH abd soft, nt, nd, +BS ext dec edema neuro- a,a, o x 3 pulses + b/l Urinary Catheter Management^: José: Cath Placed During This Visit: yes, but has since been removed by the nurse Reason for Continuing Indwelling Catheter: Accurate Measurement of Urinary Output in Critically Ill Patients Urinary Catheter Date of Insertion: 09/09/19 Urinary Catheter Time of Insertion: 11:31 Date Urinary Catheter Removed: 09/07/19 Time Urinary Catheter Discontinued: 13:08 Data : 09/14/19 04:04 09/14/19 04:04 A&P Additional A&P Information 1. FARRUKH - appears consistent with contrast related injury in setting of AMI in a diabetic. - creatinine improving, UOP excellent- - no acute indication for dialysis at present- - wheezing- repeat cxr -shows mild chf- she had excellent diuresis. i am concerend that she may have intrinsic lung disease -cont bumex 2 mg daily 2. Anemia - cont venofer 3. Hyperphos -improving on phoslo -dec dose 4. replete k 5. encourage ambulation. 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
--- NOTE | 2019-09-14 08:19 | PM.PN ---
Subjective Subjective: Interval history: Patient reports feeling better. Denies any shortness of breath or chest pain. She had very good urinary output overnight. Appears to have 3750 out. Creatinine nicely improved down to 4.2. Hemoglobin is down to 7.6.. Lower extremity swelling appears to be improved compared to yesterday. Medications: Reviewed: Yes Medication Review Details: Current Medications Acetaminophen (Tylenol) 650 mg PO Q6H PRN PRN Reason: MILD PAIN Last Admin: 09/12/19 17:59 Dose: 650 mg Documented by: Alprazolam (Xanax) 0.25 mg PO TID PRN PRN Reason: ANXIETY Last Admin: 09/10/19 00:03 Dose: 0.25 mg Documented by: Apixaban (Eliquis) 2.5 mg PO BID [facility] Last Admin: 09/12/19 17:07 Dose: 2.5 mg Documented by: Aspirin (Aspirin Ec) 81 mg PO DAILY [facility] Last Admin: 09/12/19 11:42 Dose: 81 mg Documented by: Atorvastatin Calcium (Lipitor) 80 mg PO BEDTIME [facility] Last Admin: 09/12/19 21:45 Dose: 80 mg Documented by: Atropine Sulfate (Atropine) 0.5 mg IVP PRN PRN PRN Reason: Symptomatic bradycardia Bumetanide (Bumex) 2 mg PO DAILY [facility] Last Admin: 09/12/19 08:32 Dose: 2 mg Documented by: Calcium Acetate (Phoslo) 1,334 mg PO TIDWM [facility] Last Admin: 09/13/19 07:16 Dose: 1,334 mg Documented by: Clopidogrel Bisulfate (Plavix) 75 mg PO DAILY [facility] Last Admin: 09/12/19 08:01 Dose: 75 mg Documented by: Dextrose (D50w) 25 ml IVP ONCE PRN; Protocol PRN Reason: hypoglycemia protocol Dextrose (D50w) 50 ml IVP PRN PRN; Protocol PRN Reason: hypoglycemia protocol Fentanyl (Duragesic 50 Mcg Patch) 1 patch TRANSDERMA Q72H [facility] Last Admin: 09/11/19 21:04 Dose: 1 patch Documented by: Gabapentin (Neurontin) 100 mg PO BEDTIME [facility] Last Admin: 09/12/19 21:45 Dose: 100 mg Documented by: Glucagon (Glucagen) 1 mg IM ONCE PRN; Protocol PRN Reason: Adult Acute Hypoglycemia Prot. Dextrose (D5w) 500 mls @ 100 mls/hr IV ONCE PRN; Protocol PRN Reason: Adult Acute Hypoglycemia Prot Iron Sucrose 200 mg/ Sodium (Chloride) 110 mls @ 220 mls/hr IV DAILY [facility] Stop: 09/14/19 09:29 Last Infusion: 09/12/19 09:15 Dose: Infused Documented by: Insulin Aspart (Novolog) 0 unit SUBCUT TIDWM [facility]; Protocol Last Admin: 09/13/19 07:13 Dose: 4 unit Documented by: Insulin Glargine (Lantus) 12 unit SUBCUT BEDTIME [facility] Last Admin: 09/12/19 21:45 Dose: 12 unit Documented by: Isosorbide Mononitrate (Imdur) 30 mg PO BID [facility] Last Admin: 09/12/19 17:07 Dose: 30 mg Documented by: Levothyroxine Sodium (Synthroid) 50 mcg PO DAILY [facility] Last Admin: 09/12/19 08:01 Dose: 50 mcg Documented by: Magnesium Hydroxide (Milk Of Magnesia) 30 ml PO DAILY PRN PRN Reason: CONSTIPATION Last Admin: 09/12/19 07:12 Dose: 30 ml Documented by: Naloxone HCl (Narcan) 0.1 mg IVP Q2M PRN PRN Reason: RESPIRATORY RATE < 8/MIN Nifedipine (Procardia Xl) 30 mg PO DAILY [facility] Last Admin: 09/12/19 08:01 Dose: 30 mg Documented by: Nitroglycerin (Nitrostat) 0.4 mg SUBLINGUAL Q5M PRN PRN Reason: CHEST PAIN Nitroglycerin (Nitro-Bid) 1 inch TOPICAL Q6H PRN PRN Reason: CHEST PAIN Last Admin: 09/11/19 10:05 Dose: 1 inch Documented by: Ondansetron HCl (Zofran) 4 mg IVP Q6H PRN PRN Reason: NAUSEA AND VOMITING Last Admin: 09/10/19 05:01 Dose: 4 mg Documented by: Polyethylene Glycol (Miralax) 17 gm PO DAILY [facility] Senna/Docusate Sodium (Senna-S) 1 tab PO BID [facility] Last Admin: 09/12/19 17:55 Dose: 1 tab Documented by: Temazepam (Restoril) 15 mg PO BEDTIME PRN PRN Reason: INSOMNIA Last Admin: 09/12/19 21:45 Dose: 15 mg Documented by: Vitals/I&O/Wt Last Vital Signs Temp 98.0 F 09/14/19 07:35 Pulse 70 09/14/19 07:35 Resp 19 H 09/14/19 07:35 BP 113/46 09/14/19 07:35 Pulse Ox 99 09/14/19 07:35 09/13/19 09/14/19 09/14/19 22:59 06:59 14:59 Intake Total 540 / 1250 120 / 120 Output Total 1400 / 2650 1550 / 4200 Balance -860 / -1400 -1550 / -2950 120 / 120 Physical Exam Const: COMMON NORMALS: no apparent distress and oriented x3 Resp: COMMON NORMALS: normal respiratory effort OTHER: Late expiratory wheezing throughout Cardio: COMMON NORMALS: regular rate, regular rhythm and S2 normal heart sound RATE: regular rate RHYTHM: regular rhythm HEART SOUNDS: S2 normal OTHER: 1+ bilateral lower extremity edema. GI: COMMON NORMALS: normal to inspection, nondistended, normoactive bowel sounds, soft to palpation and non-tender PALPATION: Yes soft Neuro: COMMON NORMALS: oriented x3 and no focal motor deficits Urinary Catheter Management^: José: Cath Placed During This Visit: yes, but has since been removed by the nurse Reason for Continuing Indwelling Catheter: Other Urinary Catheter Date of Insertion: 09/09/19 Urinary Catheter Time of Insertion: 11:31 Date Urinary Catheter Removed: 09/07/19 Time Urinary Catheter Discontinued: 13:08 Data : 09/14/19 04:04 09/14/19 04:04 A&P Assessment and plan (1) Acute kidney injury superimposed on chronic kidney disease: -CKD stage 3-4, 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 On phosp binders -renally dose meds, avoid nephrotoxins, off diuretics -with gentle IVF hydration developed flash pulmonary edema; has been off IVF -suspect impairment is contrast-induced given recent coronary angiogram with intervention -Nephrology consult by Dr. Newman/Dr. Ceja appreciated -Surgery consult requested for temporary dialysis catheter placement; on hold for now as no need for emergent dialysis at this time -had been on lasix drip (09/08); switched to oral Bumex 2 mg Status: Acute (2) ACS (acute coronary syndrome): -Presented with complaints of chest pain and shortness of breath, STEMI alert called en route to the ER -Recent admission for chest pain, had stress testing done with noted small sathya-infarct ischemia in RCA/circumflex territory, large size perfusion abnormality of moderate to severe severity of the entire inferior, mild to apical inferolateral, apical lateral and apical watters with some reversibility in mid inferior, mid to apical inferolateral watters; EKG portion was unremarkable -Evaluated by Dr. Estrada, plan for medical management as patient has pre-existing evidence of CT involving the inferolateral region that is nonviable. s/p cath (09/05) with intervention done (PCI of RCA and balloon angioplasty of proximal and mid diagonal branch) -Loaded with aspirin and Plavix, heparin drip; continue nitrates, statin, beta-gato, Eliquis, off heparin drip. Resume DAPT and AC; stable H/H, no need for HD temporary catheter placement currently -Troponin trend noted, significant delta change noted -serial ECGs with noted atrial fibrillation, RBBB -Telemetry monitoring -Vital signs stable, continue to monitor -Had echo done during most recent admission showing an ejection fraction of 55%, grade 2 diastolic dysfunction, mild pulmonary hypertension, mild aortic stenosis, mild to moderate mitral regurgitation -has prior hx of CAD -continues to complain of R wrist pain, negative DVT on venous duplex Status: Acute (3) Heart failure with preserved ejection fraction: -Noted acute exacerbation of chronic diastolic CHF as evidenced by symptomatic dyspnea, elevated BNP of 8389 -Echo as noted above -on bumex PO -Continue to monitor I's and O's, daily weight, renal function and electrolytes -cardiac diet as tolerated -Developed flash pulmonary edema while on IV fluid hydration given secondary to worsening renal impairment. IV fluid discontinued Status: Acute Qualifiers: Heart failure chronicity: acute on chronic Qualified Code(s): I50.33 - Acute on chronic diastolic (congestive) heart failure Additional A&P Information -Morbid obesity: BMI-44 kg/m2 -Recently treated for UTI, with Cipro -IDDM type II; A1c-7.1; Accucheks, ISS -HTN; VSS: on oral antihypertensive regimen -Hyperlipidemia; on statin; lipid panel noted -SOB: screened for influenza due to SOB, negative; CXR-interstitial fibrosis; supplemental oxygen as needed; continue to monitor respiratory status -Chronic atrial fibrillation, on BB, Eliquis; off heparin drip; intermittently bradycardic, during last admission was noted to have atrial fibrillation with slow VR -Hypothyroidism; on Levothyroxine -Acute on chronic normocytic anemia; baseline Hg 9-10; iron panel noted; continue to monitor H/H. Has had GI workup done with colonoscopy (11/2014) unremarkable other than diverticuli and 5 mm sessile polyp in sigmoid colon (pathology-benign mucosa with edema and surface hyperplastic change, no malignancy). Likely anemia of chronic disease. Worsening anemia so s/p transfusion of 1 unit PRBCs (with caution to avoid fluid overload, on 09/09). On IV iron -hx of seronegative RA and OA PLAN: Continue current monitoring and treatment. Encouraged oral intake. Continue physical therapy, patient appears to be doing well. Once kidney function improves plan to dismiss patient home with home health. -DVT ppx not needed as on Eliquis (resume today) -Dispo: home with continued in-home services ([facility]) -Code status: FULL code Attestations Medical Necessity Statement*: Patient with contrast-induced nephropathy requires close inpatient monitoring and treatment. Coding Level of Care Code Acute Screen Stretcher for [employer] Diagnoses Acute kidney injury superimposed on chronic kidney disease N17.9; N18.9 ACS (acute coronary syndrome) I24.9 Heart failure with preserved ejection fraction I50.33 Heart failure chronicity: acute on chronic
[2019-09-14] MEDS: clopidogrel 75 mg Tablet PO (09:39)
[2019-09-14] MEDS: levothyroxine 50 mcg Tablet PO (09:39)
[2019-09-14] MEDS: polyethylene glycol 3350 Pkt 17 gm PO (09:39)
[2019-09-14] MEDS: NIFEdipine ER (24 hr) 30 mg Tablet PO (09:40)
[2019-09-14] MEDS: calcium acetate 667 mg Capsule PO ×3 (09:40→17:38)
[2019-09-14] MEDS: sennosides-docusate Tablet 1 TAB PO ×2 (09:40→17:27)
[2019-09-14] MEDS: isosorbide mononitrate ER 30 mg Tablet PO ×2 (09:40→17:27)
[2019-09-14] MEDS: aspirin 81 mg EC Tablet PO (09:40)
[2019-09-14] MEDS: bumetanide 1 mg Tablet 2 MG PO (09:40)
[2019-09-14] MEDS: apixaban 5 mg Tablet 2.5 MG PO ×2 (09:40→17:27)
--- NOTE | 2019-09-14 10:46 | PC.SOCIAL ---
IMM Updated Updated pt on Pg 2 IMM. Provided pt a copy & left on pt's bedside table. Signed, dated, & timed the copy in chart.
[2019-09-14 11:27] LABS: Glucose Point of Care 194 mg/dL (70-110)
[2019-09-14 16:49] LABS: Glucose Point of Care 196 mg/dL (70-110)
--- NOTE | 2019-09-14 18:11 | PC.NURSE ---
intake at 1227 of 1,000ml is incorrect. should have been documented as output.
--- NOTE | 2019-09-14 19:02 | PM.PN ---
Subjective Subjective: Interval history: Continues to improve. Creatinine has further improved Medications: Reviewed: Yes Medication Review Details: Current Medications Acetaminophen (Tylenol) 650 mg PO Q6H PRN PRN Reason: MILD PAIN Last Admin: 09/12/19 17:59 Dose: 650 mg Documented by: Alprazolam (Xanax) 0.25 mg PO TID PRN PRN Reason: ANXIETY Last Admin: 09/10/19 00:03 Dose: 0.25 mg Documented by: Apixaban (Eliquis) 2.5 mg PO BID [facility] Last Admin: 09/12/19 17:07 Dose: 2.5 mg Documented by: Aspirin (Aspirin Ec) 81 mg PO DAILY [facility] Last Admin: 09/12/19 11:42 Dose: 81 mg Documented by: Atorvastatin Calcium (Lipitor) 80 mg PO BEDTIME [facility] Last Admin: 09/12/19 21:45 Dose: 80 mg Documented by: Atropine Sulfate (Atropine) 0.5 mg IVP PRN PRN PRN Reason: Symptomatic bradycardia Bumetanide (Bumex) 2 mg PO DAILY [facility] Last Admin: 09/12/19 08:32 Dose: 2 mg Documented by: Calcium Acetate (Phoslo) 1,334 mg PO TIDWM [facility] Last Admin: 09/13/19 07:16 Dose: 1,334 mg Documented by: Clopidogrel Bisulfate (Plavix) 75 mg PO DAILY [facility] Last Admin: 09/12/19 08:01 Dose: 75 mg Documented by: Dextrose (D50w) 25 ml IVP ONCE PRN; Protocol PRN Reason: hypoglycemia protocol Dextrose (D50w) 50 ml IVP PRN PRN; Protocol PRN Reason: hypoglycemia protocol Fentanyl (Duragesic 50 Mcg Patch) 1 patch TRANSDERMA Q72H [facility] Last Admin: 09/11/19 21:04 Dose: 1 patch Documented by: Gabapentin (Neurontin) 100 mg PO BEDTIME [facility] Last Admin: 09/12/19 21:45 Dose: 100 mg Documented by: Glucagon (Glucagen) 1 mg IM ONCE PRN; Protocol PRN Reason: Adult Acute Hypoglycemia Prot. Dextrose (D5w) 500 mls @ 100 mls/hr IV ONCE PRN; Protocol PRN Reason: Adult Acute Hypoglycemia Prot Iron Sucrose 200 mg/ Sodium (Chloride) 110 mls @ 220 mls/hr IV DAILY [facility] Stop: 09/14/19 09:29 Last Infusion: 09/12/19 09:15 Dose: Infused Documented by: Insulin Aspart (Novolog) 0 unit SUBCUT TIDWM [facility]; Protocol Last Admin: 09/13/19 07:13 Dose: 4 unit Documented by: Insulin Glargine (Lantus) 12 unit SUBCUT BEDTIME [facility] Last Admin: 09/12/19 21:45 Dose: 12 unit Documented by: Isosorbide Mononitrate (Imdur) 30 mg PO BID [facility] Last Admin: 09/12/19 17:07 Dose: 30 mg Documented by: Levothyroxine Sodium (Synthroid) 50 mcg PO DAILY [facility] Last Admin: 09/12/19 08:01 Dose: 50 mcg Documented by: Magnesium Hydroxide (Milk Of Magnesia) 30 ml PO DAILY PRN PRN Reason: CONSTIPATION Last Admin: 09/12/19 07:12 Dose: 30 ml Documented by: Naloxone HCl (Narcan) 0.1 mg IVP Q2M PRN PRN Reason: RESPIRATORY RATE < 8/MIN Nifedipine (Procardia Xl) 30 mg PO DAILY [facility] Last Admin: 09/12/19 08:01 Dose: 30 mg Documented by: Nitroglycerin (Nitrostat) 0.4 mg SUBLINGUAL Q5M PRN PRN Reason: CHEST PAIN Nitroglycerin (Nitro-Bid) 1 inch TOPICAL Q6H PRN PRN Reason: CHEST PAIN Last Admin: 09/11/19 10:05 Dose: 1 inch Documented by: Ondansetron HCl (Zofran) 4 mg IVP Q6H PRN PRN Reason: NAUSEA AND VOMITING Last Admin: 09/10/19 05:01 Dose: 4 mg Documented by: Polyethylene Glycol (Miralax) 17 gm PO DAILY [facility] Senna/Docusate Sodium (Senna-S) 1 tab PO BID [facility] Last Admin: 09/12/19 17:55 Dose: 1 tab Documented by: Temazepam (Restoril) 15 mg PO BEDTIME PRN PRN Reason: INSOMNIA Last Admin: 09/12/19 21:45 Dose: 15 mg Documented by: Vitals/I&O/Wt Last Vital Signs Temp 97.7 F 09/14/19 16:00 Pulse 83 09/14/19 16:00 Resp 12 09/14/19 16:00 BP 132/66 09/14/19 16:00 Pulse Ox 100 09/14/19 16:00 09/14/19 09/14/19 09/14/19 06:59 14:59 22:59 Intake Total 1240 / 1240 120 / 1360 Output Total 1550 / 4200 1000 / 1000 2400 / 3400 Balance -1550 / -2950 240 / 240 -2280 / -2040 Physical Exam Narrative: EXAM NARRATIVE: GENERAL: Patient is alert, awake and oriented x3. NECK: No jugular vein distension. HEENT: No cyanosis. No icterus. No pallor. HEART: Irregularly irregular S1 and S2. No murmur, rub or gallop. LUNGS:Clear to auscultate bilaterally. . CENTRAL NERVOUS SYSTEM: Grossly nonfocal. EXTREMITIES: Lower extremities with trace edema bilaterally. Const: COMMON NORMALS: oriented x3; apparent distress EXAM LIMITATIONS: no altered mental status and no behavioral limitations GENERAL APPEARANCE: cooperative and comfortable ORIENTATION/CONSCIOUSNESS: Yes awake, Yes oriented to person, Yes oriented to place and Yes oriented to time HENMT: COMMON NORMALS: normocephalic HEAD & SCALP: normocephalic Resp: EFFORT & INSPECTION: Yes able to speak in complete sentences (Not able to complete sentences, short of breath) and Yes tachypneic AUSCULTATION: crackles and rales bilateral Cardio: COMMON NORMALS: regular rate (Irregularly irregular), S1 normal heart sound and S2 normal heart sound RATE: regular rate (Irregularly irregular) HEART SOUNDS: S1 normal and S2 normal Extremity: OTHER: No bilateral lower extremity edema Neuro: COMMON NORMALS: oriented x3 and CN's II-XII intact bilaterally SENSORIUM/ORIENTATION: Yes oriented to person, Yes oriented to place and Yes oriented to time Psych: COMMON NORMALS: mental status grossly normal Urinary Catheter Management^: José: Cath Placed During This Visit: yes, but has since been removed by the nurse Reason for Continuing Indwelling Catheter: Other Urinary Catheter Date of Insertion: 09/09/19 Urinary Catheter Time of Insertion: 11:31 Date Urinary Catheter Removed: 09/07/19 Time Urinary Catheter Discontinued: 13:08 Data : 09/14/19 04:04 09/14/19 04:04 A&P Assessment and plan (1) ACS (acute coronary syndrome): Stable Status post PCI History of fine. Continue current regimen Status: Acute (2) Acute kidney injury superimposed on chronic kidney disease: Creatinine started improving today to 4.1. Continue to monitor. Status: Acute (3) Heart failure with preserved ejection fraction: Well compensated continue current regimen Status: Acute Qualifiers: Heart failure chronicity: acute on chronic Qualified Code(s): I50.33 - Acute on chronic diastolic (congestive) heart failure (4) Atrial fibrillation by electrocardiogram: Rate controlled Not on anticoagulation due to severe anemia Status: Acute (5) Aortic stenosis: [id number] aortic stenosis. We'll continue to monitor. Status: Acute Qualifiers: Cardiac valve disease etiology: nonrheumatic Qualified Code(s): I35.0 - Nonrheumatic aortic (valve) stenosis (6) Diabetes: As per medicine. Status: Acute Qualifiers: Diabetes mellitus type: type 2 Attestations Medical Necessity Statement*: Patient requires continuation hospitalization hopefully by tomorrow we may will send her home Coding Level of Care Code Acute Iphone Developer for [facility] Diagnoses ACS (acute coronary syndrome) I24.9 Acute kidney injury superimposed on chronic kidney disease N17.9; N18.9 Heart failure with preserved ejection fraction I50.33 Heart failure chronicity: acute on chronic Atrial fibrillation by electrocardiogram I48.91 Aortic stenosis I35.0 Cardiac valve disease etiology: nonrheumatic Diabetes E11.9 Diabetes mellitus type: type 2
[2019-09-14 20:27] LABS: Glucose Point of Care 229 mg/dL (70-110)
--- NOTE | 2019-09-14 21:45 | PC.NURSE ---
Patient up to BSC. Crying loudly. It won't come out.....it's just hanging there. Patient assisted to standing position with assist of 2. This nurse manually removed moderate amount of hard stool from rectum. Patient cleaned and put back to bed. States, my butt is really sore but I'm glad you did that cause it does feel a little better now. Patient requesting medication to help soften stools. This nurse informed patient that I would relay her wishes to the oncoming shift. Voices understanding and agreement. I just don't feel so tight now. Will monitor.
[2019-09-14] MEDS: gabapentin 100 mg Capsule PO (22:03)
[2019-09-14] MEDS: atorvastatin 40 mg Tablet 80 MG PO (22:03)
[2019-09-14] MEDS: ALPRAZolam 0.25 mg Tablet PO (22:03)
[2019-09-14] MEDS: fentaNYL 50 mcg Patch 1 PATCH TRANSDERMA (22:04)
[2019-09-14] MEDS: insulin glargine 100 units/1 mL 12 UNIT SUBCUT (22:04)
[2019-09-15] VITALS (8 sets, daily range): BP systolic 113–159; BP diastolic 59–85; PULSE 68–81; RESP 13–20; TEMP 36.7–37; O2SAT 98–100
--- NOTE | 2019-09-15 00:54 | PC.NURSE ---
DR AYALA GAVE A VERBAL ORDER FOR MOLDING PROCESS TECHNICIAN NURSE TO ASSIST IN DIGITALLY REMOVING BM.
[2019-09-15 04:49] LABS: Basophils % 0.6 %; Eosinophils # 0.2 10^3/uL (0.0-0.8); Hemoglobin 8.3 g/dL (11.5-15.3); Lymphocytes % 14.3 %; Mean Corpuscular HGB Conc 31.9 g/dL (30.0-36.0); Mean Corpuscular Hemoglobin 28.8 pg (28.0-34.0); Mean Corpuscular Volume 90.3 fL (81-99); Mean Platelet Volume 11.3 fL (7.4-10.4); Monocytes # 0.7 10^3/uL (0.2-0.9); Monocytes % 10.9 %; Neutrophils # 4.7 10^3/uL (1.8-7.7); Neutrophils % 70.8 %; Nucleated Red Blood Cells % 0 %; Platelet Count 169 10^3/cmm (130-400); Red Blood Count 2.88 10^6/uL (4.1-5.3); Red Cell Distribution Width 16.7 % (12.1-15.1); White Blood Count 6.7 10^3/uL (4.0-10.0)
[2019-09-15 05:04] LABS: Alanine Aminotransferase 11 U/L (0-33); Albumin Level 3.2 g/dL (3.5-5.2); Alkaline Phosphatase 103 IU/L (35-105); Anion Gap 15.4 (5-19); Aspartate Amino Transferase 15 U/L (0-32); Blood Urea Nitrogen 72 mg/dL (8-23); Carbon Dioxide 28 mmol/L (22-29); Chloride 99 mmol/L (98-107); Globulin 3.6 g/dL (1.3-4.6); Glomerular Filtration Rate 15.5 mL/min (90-130); Glucose 152 mg/dL (65-115); Osmolality Calculated 290 mOsm/kg (285-295); Phosphorus 4.1 mg/dL (2.5-4.5); Potassium 3.4 mmol/L (3.5-5.1); Sodium 139 mmol/L (136-145); Total Bilirubin 0.6 mg/dL (0.15-1.2); Total Protein 6.8 g/dL (6.6-8.7)
[2019-09-15 06:34] LABS: Glucose Point of Care 142 mg/dL (70-110)
--- NOTE | 2019-09-15 06:59 | P.PN_ITS ---
Subjective Subjective: Interval history: feels better. still sob and has some edema. but moving and no n/v/f/c/rowe/d Medications: Reviewed: Yes Medication Review Details: Current Medications Acetaminophen (Tylenol) 650 mg PO Q6H PRN PRN Reason: MILD PAIN Last Admin: 09/13/19 19:57 Dose: 650 mg Documented by: Albuterol/Ipratropium (Duoneb) 3 ml INHALATION Q4H PRN PRN Reason: SHORTNESS OF BREATH Alprazolam (Xanax) 0.25 mg PO TID PRN PRN Reason: ANXIETY Last Admin: 09/14/19 22:03 Dose: 0.25 mg Documented by: Apixaban (Eliquis) 2.5 mg PO BID [facility] Last Admin: 09/14/19 17:27 Dose: 2.5 mg Documented by: Aspirin (Aspirin Ec) 81 mg PO DAILY [facility] Last Admin: 09/14/19 09:40 Dose: 81 mg Documented by: Atorvastatin Calcium (Lipitor) 80 mg PO BEDTIME [facility] Last Admin: 09/14/19 22:03 Dose: 80 mg Documented by: Atropine Sulfate (Atropine) 0.5 mg IVP PRN PRN PRN Reason: Symptomatic bradycardia Bumetanide (Bumex) 2 mg PO DAILY [facility] Last Admin: 09/14/19 09:40 Dose: 2 mg Documented by: Calcium Acetate (Phoslo) 667 mg PO TIDWM [facility] Last Admin: 09/14/19 17:38 Dose: 667 mg Documented by: Clopidogrel Bisulfate (Plavix) 75 mg PO DAILY [facility] Last Admin: 09/14/19 09:39 Dose: 75 mg Documented by: Dextrose (D50w) 25 ml IVP ONCE PRN; Protocol PRN Reason: hypoglycemia protocol Dextrose (D50w) 50 ml IVP PRN PRN; Protocol PRN Reason: hypoglycemia protocol Fentanyl (Duragesic 50 Mcg Patch) 1 patch TRANSDERMA Q72H [facility] Last Admin: 09/14/19 22:04 Dose: 1 patch Documented by: Gabapentin (Neurontin) 100 mg PO BEDTIME [facility] Last Admin: 09/14/19 22:03 Dose: 100 mg Documented by: Glucagon (Glucagen) 1 mg IM ONCE PRN; Protocol PRN Reason: Adult Acute Hypoglycemia Prot. Dextrose (D5w) 500 mls @ 100 mls/hr IV ONCE PRN; Protocol PRN Reason: Adult Acute Hypoglycemia Prot Insulin Aspart (Novolog) 0 unit SUBCUT TIDWM [facility]; Protocol Last Admin: 09/14/19 17:26 Dose: 6 unit Documented by: Insulin Glargine (Lantus) 12 unit SUBCUT BEDTIME [facility] Last Admin: 09/14/19 22:04 Dose: 12 unit Documented by: Isosorbide Mononitrate (Imdur) 30 mg PO BID [facility] Last Admin: 09/14/19 17:27 Dose: 30 mg Documented by: Levothyroxine Sodium (Synthroid) 50 mcg PO DAILY [facility] Last Admin: 09/14/19 09:39 Dose: 50 mcg Documented by: Magnesium Hydroxide (Milk Of Magnesia) 30 ml PO DAILY PRN PRN Reason: CONSTIPATION Last Admin: 09/12/19 07:12 Dose: 30 ml Documented by: Naloxone HCl (Narcan) 0.1 mg IVP Q2M PRN PRN Reason: RESPIRATORY RATE < 8/MIN Nifedipine (Procardia Xl) 30 mg PO DAILY [facility] Last Admin: 09/14/19 09:40 Dose: 30 mg Documented by: Nitroglycerin (Nitrostat) 0.4 mg SUBLINGUAL Q5M PRN PRN Reason: CHEST PAIN Nitroglycerin (Nitro-Bid) 1 inch TOPICAL Q6H PRN PRN Reason: CHEST PAIN Last Admin: 09/11/19 10:05 Dose: 1 inch Documented by: Ondansetron HCl (Zofran) 4 mg IVP Q6H PRN PRN Reason: NAUSEA AND VOMITING Last Admin: 09/10/19 05:01 Dose: 4 mg Documented by: Polyethylene Glycol (Miralax) 17 gm PO DAILY [facility] Last Admin: 09/14/19 09:39 Dose: 17 gm Documented by: Senna/Docusate Sodium (Senna-S) 1 tab PO BID [facility] Last Admin: 09/14/19 17:27 Dose: 1 tab Documented by: Temazepam (Restoril) 15 mg PO BEDTIME PRN PRN Reason: INSOMNIA Last Admin: 09/12/19 21:45 Dose: 15 mg Documented by: Vitals/I&O/Wt Last Vital Signs Temp 98.0 F 09/15/19 03:11 Pulse 73 09/15/19 03:11 Resp 16 09/15/19 03:11 BP 159/72 09/15/19 03:11 Pulse Ox 99 09/15/19 03:11 09/14/19 09/14/19 09/15/19 14:59 22:59 06:59 Intake Total 240 / 240 120 / 360 200 / 560 Output Total 1000 / 1000 2400 / 3400 1575 / 4975 Balance -760 / -760 -2280 / -3040 -1375 / -4415 Physical Exam Narrative: EXAM NARRATIVE: obese, comfortable in bed, vs noted heent- nc/at, eomi, anicteric neck supple lungs diffuse wheezing heart reg, +STEPH abd soft, nt, nd, +BS ext -b/l leg edema neuro- a,a, o x 3 pulses + b/l Urinary Catheter Management^: José: Cath Placed During This Visit: yes, but has since been removed by the nurse Reason for Continuing Indwelling Catheter: Other Urinary Catheter Date of Insertion: 09/09/19 Urinary Catheter Time of Insertion: 11:31 Date Urinary Catheter Removed: 09/07/19 Time Urinary Catheter Discontinued: 13:08 Data : 09/15/19 04:00 09/15/19 04:00 A&P Additional A&P Information 1. FARRUKH - appears consistent with contrast related injury in setting of AMI in a diabetic. - creatinine improving, UOP excellent- - repeat cxr on 09/13/19 -shows mild chf- she had excellent diuresis. i am concerend that she may have intrinsic lung disease -cont bumex 2 mg daily - dec as per cardiology -replace k and mag 2. Anemia - cont venofer 3. Hyperphos -improved- will d/c phoslo 4.AMI as per cards CHF 5. dm control 6. encourage ambulation. - d/w pt and RN Attestations Medical Necessity Statement*: per hospitalist. improving farrukh in setting of a dm w/ AMI Time Spent in Patient Care: 16 - 35 minutes Coding Level of Care Code Acute Twist Maker for Kendall Mckeon
[2019-09-15] MEDS: polyethylene glycol 3350 Pkt 17 gm PO (08:54)
[2019-09-15] MEDS: clopidogrel 75 mg Tablet PO (08:55)
[2019-09-15] MEDS: levothyroxine 50 mcg Tablet PO (08:55)
[2019-09-15] MEDS: isosorbide mononitrate ER 30 mg Tablet PO ×2 (08:55→17:25)
[2019-09-15] MEDS: aspirin 81 mg EC Tablet PO (08:55)
[2019-09-15] MEDS: apixaban 5 mg Tablet 2.5 MG PO ×2 (08:56→17:24)
[2019-09-15] MEDS: NIFEdipine ER (24 hr) 30 mg Tablet PO (08:56)
[2019-09-15] MEDS: bumetanide 1 mg Tablet 2 MG PO (08:56)
[2019-09-15] MEDS: sennosides-docusate Tablet 1 TAB PO ×2 (08:56→17:25)
--- NOTE | 2019-09-15 10:25 | P.PN_ITS ---
Subjective Subjective: Interval history: Patient reports doing much better but feels very tired. She had very good urinary output and her creatinine further improved. She thinks that she will benefit from [facility] for rehabilitation rather than going home. Overall she does appear much improved Vitals/I&O/Wt Last Vital Signs Temp 98.0 F 09/15/19 08:00 Pulse 72 09/15/19 08:03 Resp 18 09/15/19 08:03 BP 130/68 09/15/19 08:00 Pulse Ox 99 09/15/19 08:03 09/14/19 09/15/19 09/15/19 22:59 06:59 14:59 Intake Total 120 / 360 200 / 560 240 / 240 Output Total 2400 / 3400 1575 / 4975 1000 / 1000 Balance -2280 / -3040 -1375 / -4415 -760 / -760 Physical Exam Const: COMMON NORMALS: no apparent distress and oriented x3 Resp: COMMON NORMALS: normal respiratory effort OTHER: Clear to auscultation. Cardio: COMMON NORMALS: regular rate, regular rhythm and S2 normal heart sound RATE: regular rate RHYTHM: regular rhythm HEART SOUNDS: S2 normal OTHER: No bilateral lower extremity edema. GI: COMMON NORMALS: normal to inspection, nondistended, normoactive bowel sounds, soft to palpation and non-tender PALPATION: Yes soft Neuro: COMMON NORMALS: oriented x3 and no focal motor deficits Urinary Catheter Management^: José: Cath Placed During This Visit: yes, but has since been removed by the nurse Reason for Continuing Indwelling Catheter: Acute Urinary Retention or Obstruction Urinary Catheter Date of Insertion: 09/09/19 Urinary Catheter Time of Insertion: 11:31 Date Urinary Catheter Removed: 09/07/19 Time Urinary Catheter Discontinued: 13:08 Data : 09/15/19 04:00 09/15/19 04:00 A&P Assessment and plan (1) Acute kidney injury superimposed on chronic kidney disease: -CKD stage 3-4, 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 On phosp binders -renally dose meds, avoid nephrotoxins, off diuretics -with gentle IVF hydration developed flash pulmonary edema; has been off IVF -suspect impairment is contrast-induced given recent coronary angiogram with intervention -Nephrology consult by Dr. Newman/Dr. Ceja appreciated -Surgery consult requested for temporary dialysis catheter placement; on hold for now as no need for emergent dialysis at this time -had been on lasix drip (09/08); switched to oral Bumex 2 mg Status: Acute (2) ACS (acute coronary syndrome): -Presented with complaints of chest pain and shortness of breath, STEMI alert called en route to the ER -Recent admission for chest pain, had stress testing done with noted small sathya- infarct ischemia in RCA/circumflex territory, large size perfusion abnormality of moderate to severe severity of the entire inferior, mild to apical inferolateral, apical lateral and apical watters with some reversibility in mid inferior, mid to apical inferolateral watters; EKG portion was unremarkable -Evaluated by Dr. Estrada, plan for medical management as patient has pre-existing evidence of IL involving the inferolateral region that is nonviable. s/p cath (09/05) with intervention done (PCI of RCA and balloon angioplasty of proximal and mid diagonal branch) -Loaded with aspirin and Plavix, heparin drip; continue nitrates, statin, beta- gato, Eliquis, off heparin drip. Resume DAPT and AC; stable H/H, no need for HD temporary catheter placement currently -Troponin trend noted, significant delta change noted -serial ECGs with noted atrial fibrillation, RBBB -Telemetry monitoring -Vital signs stable, continue to monitor -Had echo done during most recent admission showing an ejection fraction of 55%, grade 2 diastolic dysfunction, mild pulmonary hypertension, mild aortic stenosis, mild to moderate mitral regurgitation -has prior hx of CAD -continues to complain of R wrist pain, negative DVT on venous duplex Status: Acute (3) Heart failure with preserved ejection fraction: -Noted acute exacerbation of chronic diastolic CHF as evidenced by symptomatic dyspnea, elevated BNP of 8389 -Echo as noted above -on bumex PO -Continue to monitor I's and O's, daily weight, renal function and electrolytes -cardiac diet as tolerated -Developed flash pulmonary edema while on IV fluid hydration given secondary to worsening renal impairment. IV fluid discontinued Status: Acute Qualifiers: Heart failure chronicity: acute on chronic Qualified Code(s): I50.33 - Acute on chronic diastolic (congestive) heart failure Additional A&P Information -Morbid obesity: BMI-44 kg/m2 -Recently treated for UTI, with Cipro -IDDM type II; A1c-7.1; Accucheks, ISS -HTN; VSS: on oral antihypertensive regimen -Hyperlipidemia; on statin; lipid panel noted -SOB: screened for influenza due to SOB, negative; CXR-interstitial fibrosis; supplemental oxygen as needed; continue to monitor respiratory status -Chronic atrial fibrillation, on BB, Eliquis; off heparin drip; intermittently bradycardic, during last admission was noted to have atrial fibrillation with slow VR -Hypothyroidism; on Levothyroxine -Acute on chronic normocytic anemia; baseline Hg 9-10; iron panel noted; continue to monitor H/H. Has had GI workup done with colonoscopy (11/2014) unremarkable other than diverticuli and 5 mm sessile polyp in sigmoid colon (pathology-benign mucosa with edema and surface hyperplastic change, no m alignancy). Likely anemia of chronic disease. Worsening anemia so s/p transfusion of 1 unit PRBCs (with caution to avoid fluid overload, on 09/09). On IV iron -hx of seronegative RA and OA PLAN: Continue current monitoring and treatment. Replete potassium. Continue physical therapy Will request case management to arrange placement as patient does not feel strong enough to be dismissed home. -DVT ppx not needed as on Eliquis (resume today) -Dispo: home with continued in-home services ([facility]) -Code status: FULL code Attestations Medical Necessity Statement*: Patient with acute kidney injury and generalized weakness requires close inpatient monitoring and treatment till placed to nursing facility for rehabilitation. Coding Level of Care Code Acute Crystal Gazer for Kendall Mckeon Diagnoses Acute kidney injury superimposed on chronic kidney disease N17.9; N18.9 ACS (acute coronary syndrome) I24.9 Heart failure with preserved ejection fraction I50.33 Heart failure chronicity: acute on chronic
[2019-09-15 11:15] LABS: Glucose Point of Care 273 mg/dL (70-110)
--- NOTE | 2019-09-15 16:26 | P.PN_ITS ---
Subjective Subjective: Interval history: Denies any chest pain. Continues to diurese well. Creatinine has improved to 3.0 Medications: Reviewed: Yes Medication Review Details: Current Medications Acetaminophen (Tylenol) 650 mg PO Q6H PRN PRN Reason: MILD PAIN Last Admin: 09/13/19 19:57 Dose: 650 mg Documented by: Albuterol/Ipratropium (Duoneb) 3 ml INHALATION Q4H PRN PRN Reason: SHORTNESS OF BREATH Alprazolam (Xanax) 0.25 mg PO TID PRN PRN Reason: ANXIETY Last Admin: 09/14/19 22:03 Dose: 0.25 mg Documented by: Apixaban (Eliquis) 2.5 mg PO BID [facility] Last Admin: 09/14/19 17:27 Dose: 2.5 mg Documented by: Aspirin (Aspirin Ec) 81 mg PO DAILY [facility] Last Admin: 09/14/19 09:40 Dose: 81 mg Documented by: Atorvastatin Calcium (Lipitor) 80 mg PO BEDTIME [facility] Last Admin: 09/14/19 22:03 Dose: 80 mg Documented by: Atropine Sulfate (Atropine) 0.5 mg IVP PRN PRN PRN Reason: Symptomatic bradycardia Bumetanide (Bumex) 2 mg PO DAILY [facility] Last Admin: 09/14/19 09:40 Dose: 2 mg Documented by: Calcium Acetate (Phoslo) 667 mg PO TIDWM [facility] Last Admin: 09/14/19 17:38 Dose: 667 mg Documented by: Clopidogrel Bisulfate (Plavix) 75 mg PO DAILY [facility] Last Admin: 09/14/19 09:39 Dose: 75 mg Documented by: Dextrose (D50w) 25 ml IVP ONCE PRN; Protocol PRN Reason: hypoglycemia protocol Dextrose (D50w) 50 ml IVP PRN PRN; Protocol PRN Reason: hypoglycemia protocol Fentanyl (Duragesic 50 Mcg Patch) 1 patch TRANSDERMA Q72H [facility] Last Admin: 09/14/19 22:04 Dose: 1 patch Documented by: Gabapentin (Neurontin) 100 mg PO BEDTIME [facility] Last Admin: 09/14/19 22:03 Dose: 100 mg Documented by: Glucagon (Glucagen) 1 mg IM ONCE PRN; Protocol PRN Reason: Adult Acute Hypoglycemia Prot. Dextrose (D5w) 500 mls @ 100 mls/hr IV ONCE PRN; Protocol PRN Reason: Adult Acute Hypoglycemia Prot Insulin Aspart (Novolog) 0 unit SUBCUT TIDWM [facility]; Protocol Last Admin: 09/14/19 17:26 Dose: 6 unit Documented by: Insulin Glargine (Lantus) 12 unit SUBCUT BEDTIME [facility] Last Admin: 09/14/19 22:04 Dose: 12 unit Documented by: Isosorbide Mononitrate (Imdur) 30 mg PO BID [facility] Last Admin: 09/14/19 17:27 Dose: 30 mg Documented by: Levothyroxine Sodium (Synthroid) 50 mcg PO DAILY [facility] Last Admin: 09/14/19 09:39 Dose: 50 mcg Documented by: Magnesium Hydroxide (Milk Of Magnesia) 30 ml PO DAILY PRN PRN Reason: CONSTIPATION Last Admin: 09/12/19 07:12 Dose: 30 ml Documented by: Naloxone HCl (Narcan) 0.1 mg IVP Q2M PRN PRN Reason: RESPIRATORY RATE < 8/MIN Nifedipine (Procardia Xl) 30 mg PO DAILY [facility] Last Admin: 09/14/19 09:40 Dose: 30 mg Documented by: Nitroglycerin (Nitrostat) 0.4 mg SUBLINGUAL Q5M PRN PRN Reason: CHEST PAIN Nitroglycerin (Nitro-Bid) 1 inch TOPICAL Q6H PRN PRN Reason: CHEST PAIN Last Admin: 09/11/19 10:05 Dose: 1 inch Documented by: Ondansetron HCl (Zofran) 4 mg IVP Q6H PRN PRN Reason: NAUSEA AND VOMITING Last Admin: 09/10/19 05:01 Dose: 4 mg Documented by: Polyethylene Glycol (Miralax) 17 gm PO DAILY [facility] Last Admin: 09/14/19 09:39 Dose: 17 gm Documented by: Senna/Docusate Sodium (Senna-S) 1 tab PO BID [facility] Last Admin: 09/14/19 17:27 Dose: 1 tab Documented by: Temazepam (Restoril) 15 mg PO BEDTIME PRN PRN Reason: INSOMNIA Last Admin: 09/12/19 21:45 Dose: 15 mg Documented by: Vitals/I&O/Wt Last Vital Signs Temp 98.0 F 09/15/19 16:00 Pulse 81 09/15/19 15:52 Resp 20 H 09/15/19 15:52 BP 148/74 09/15/19 15:52 Pulse Ox 99 09/15/19 15:52 09/15/19 09/15/19 09/15/19 06:59 14:59 22:59 Intake Total 200 / 560 360 / 360 Output Total 1575 / 4975 1850 / 1850 Balance -1375 / -4415 -1490 / -1490 Physical Exam Narrative: EXAM NARRATIVE: GENERAL: Patient is alert, awake and oriented x3. NECK: No jugular vein distension. HEENT: No cyanosis. No icterus. No pallor. HEART: Irregularly irregular S1 and S2. No murmur, rub or gallop. LUNGS:Clear to auscultate bilaterally. . CENTRAL NERVOUS SYSTEM: Grossly nonfocal. EXTREMITIES: Lower extremities with trace edema bilaterally. Const: COMMON NORMALS: oriented x3; apparent distress EXAM LIMITATIONS: no altered mental status and no beha vioral limitations GENERAL APPEARANCE: cooperative and comfortable ORIENTATION/CONSCIOUSNESS: Yes awake, Yes oriented to person, Yes oriented to place and Yes oriented to time HENMT: COMMON NORMALS: normocephalic HEAD & SCALP: normocephalic Resp: EFFORT & INSPECTION: Yes able to speak in complete sentences (Not able to complete sentences, short of breath) and Yes tachypneic AUSCULTATION: crackles and rales bilateral Cardio: COMMON NORMALS: regular rate (Irregularly irregular), S1 normal heart sound and S2 normal heart sound RATE: regular rate (Irregularly irregular) HEART SOUNDS: S1 normal and S2 normal Extremity: OTHER: No bilateral lower extremity edema Neuro: COMMON NORMALS: oriented x3 and CN's II-XII intact bilaterally SENSORIUM/ORIENTATION: Yes oriented to person, Yes oriented to place and Yes oriented to time Psych: COMMON NORMALS: mental status grossly normal Urinary Catheter Management^: José: Cath Placed During This Visit: yes, but has since been removed by the nurse Reason for Continuing Indwelling Catheter: Acute Urinary Retention or Obst ruction Urinary Catheter Date of Insertion: 09/09/19 Urinary Catheter Time of Insertion: 11:31 Date Urinary Catheter Removed: 09/07/19 Time Urinary Catheter Discontinued: 13:08 Data : 09/15/19 04:00 09/15/19 04:00 A&P Assessment and plan (1) ACS (acute coronary syndrome): Stable Status post PCI History of fine. Continue current Medicine Status: Acute (2) Acute kidney injury superimposed on chronic kidney disease: Creatinine started improving today to 3.0. Continue to monitor.From a cardiac perspective patient can be discharged. Status: Acute (3) Heart failure with preserved ejection fraction: Well compensated continue current regimen Status: Acute Qualifiers: Heart failure chronicity: acute on chronic Qualified Code(s): I50.33 - Acute on chronic diastolic (congestive) heart failure (4) Atrial fibrillation by electrocardiogram: Rate controlled Not on anticoagulation due to severe anemia Status: Acute (5) Aortic stenosis: [id number] aortic stenosis. We'll continue to monitor. Status: Acute Qualifiers: Cardiac valve disease etiology: nonrheumatic Qualified Code(s): I35.0 - Nonrheumatic aortic (valve) stenosis (6) Diabetes: As per medicine. Status: Acute Qualifiers: Diabetes mellitus type: type 2 Attestations Medical Necessity Statement*: As per medicine Coding Level of Care Code Established Pt Acute Bisque Tile Burner for g Fwd Patient Type Established History Expanded Problem Focused Exam Expanded Problem Focused Medical Decision Making Moderate Complexity Diagnoses ACS (acute coronary syndrome) I24.9 Acute kidney injury superimposed on chronic kidney disease N17.9; N18.9 Heart failure with preserved ejection fraction I50.33 Heart failure chronicity: acute on chronic Atrial fibrillation by electrocardiogram I48.91 Aortic stenosis I35.0 Cardiac valve disease etiology: nonrheumatic Diabetes E11.9 Diabetes mellitus type: type 2
[2019-09-15 17:05] LABS: Glucose Point of Care 193 mg/dL (70-110)
--- NOTE | 2019-09-15 19:07 | PC.NURSE ---
Dr. Malloy notified of patient asking for something for back pain, with patient stating Tylenol doesn't help.
[2019-09-15 19:16] LABS: Glucose Point of Care 230 mg/dL (70-110)
[2019-09-15] MEDS: gabapentin 100 mg Capsule PO (19:30)
[2019-09-15] MEDS: ALPRAZolam 0.25 mg Tablet PO (19:30)
[2019-09-15] MEDS: atorvastatin 40 mg Tablet 80 MG PO (19:30)
[2019-09-15] MEDS: TRAMadol 50 mg Tablet PO (19:30)
[2019-09-15] MEDS: insulin glargine 100 units/1 mL 12 UNIT SUBCUT (19:46)
--- NOTE | 2019-09-15 23:32 | ECG_ITS ---
Measurements Intervals [place] Rate: 68 P: 60 MS: 232 QRS: 65 QRSD: 149 T: -60 QT: 431 QTc: 458 SINUS RHYTHM WITH FIRST DEGREE AV BLOCK INTRAVENTRICULAR CONDUCTION DELAY [130+ ms QRS DURATION] INFERIOR MYOCARDIAL INFARCTION [40+ ms Q WAVE AND/OR ST/T ABNORMALITY IN II/aVF], OF INDETERMINATE AGE WITH POSTERIOR EXTENSION ANTEROLATERAL MYOCARDIAL INFARCTION [40+ ms Q WAVE IN I/aVL/V3-V6], OF INDETERMINATE AGE Compared to ECG 09/09/2019 13:36:55 no significant change Electronically Signed On 09-16-2019 18:13:06 CDT by Ruchi Estrada M.D. [email or web address]
--- NOTE | 2019-09-15 23:33 | PC.NURSE ---
Dr. Malloy notified of patient having 3 second pauses on heart monitor. Patient is asymptomatic. VSS.
[2019-09-16] VITALS (7 sets, daily range): BP systolic 101–158; BP diastolic 49–69; PULSE 74–77; RESP 16–20; TEMP 36.6–37.1; O2SAT 87–98
[2019-09-16 05:18] LABS: Basophils % 0.7 %; Eosinophils # 0.2 10^3/uL (0.0-0.8); Hematocrit 27.6 % (37.0-47.0); Hemoglobin 8.7 g/dL (11.5-15.3); Lymphocytes # 1.4 10^3/uL (0.8-4.8); Lymphocytes % 24.1 %; Mean Corpuscular HGB Conc 31.5 g/dL (30.0-36.0); Mean Corpuscular Hemoglobin 28.5 pg (28.0-34.0); Mean Corpuscular Volume 90.5 fL (81-99); Mean Platelet Volume 11.3 fL (7.4-10.4); Monocytes # 0.8 10^3/uL (0.2-0.9); Monocytes % 14.3 %; Neutrophils # 3.3 10^3/uL (1.8-7.7); Neutrophils % 56.4 %; Nucleated Red Blood Cells % 0 %; Platelet Count 183 10^3/cmm (130-400); Red Blood Count 3.05 10^6/uL (4.1-5.3); Red Cell Distribution Width 16.8 % (12.1-15.1); White Blood Count 5.8 10^3/uL (4.0-10.0)
[2019-09-16 05:48] LABS: Alanine Aminotransferase 14 U/L (0-33); Albumin Level 3.2 g/dL (3.5-5.2); Alkaline Phosphatase 100 IU/L (35-105); Anion Gap 16.7 (5-19); Aspartate Amino Transferase 22 U/L (0-32); Blood Urea Nitrogen 64 mg/dL (8-23); Calcium 9.2 mg/dL (8.5-10.5); Carbon Dioxide 27 mmol/L (22-29); Chloride 98 mmol/L (98-107); Globulin 3.7 g/dL (1.3-4.6); Glomerular Filtration Rate 19.1 mL/min (90-130); Glucose 107 mg/dL (65-115); Osmolality Calculated 285 mOsm/kg (285-295); Potassium 3.7 mmol/L (3.5-5.1); Sodium 138 mmol/L (136-145); Total Bilirubin 0.6 mg/dL (0.15-1.2); Total Protein 6.9 g/dL (6.6-8.7)
[2019-09-16 06:06] LABS: Phosphorus 3.3 mg/dL (2.5-4.5)
[2019-09-16 06:29] LABS: Glucose Point of Care 125 mg/dL (70-110)
--- NOTE | 2019-09-16 07:33 | PM.PN ---
Subjective Subjective: Interval history: feels better. no n/v/f/c/rowe/d/cp/sob. she wants to go home. Medications: Reviewed: Yes Medication Review Details: Current Medications Acetaminophen (Tylenol) 650 mg PO Q6H PRN PRN Reason: MILD PAIN Last Admin: 09/13/19 19:57 Dose: 650 mg Documented by: Albuterol/Ipratropium (Duoneb) 3 ml INHALATION Q4H PRN PRN Reason: SHORTNESS OF BREATH Alprazolam (Xanax) 0.25 mg PO TID PRN PRN Reason: ANXIETY Last Admin: 09/15/19 19:30 Dose: 0.25 mg Documented by: Apixaban (Eliquis) 2.5 mg PO BID [facility] Last Admin: 09/15/19 17:24 Dose: 2.5 mg Documented by: Aspirin (Aspirin Ec) 81 mg PO DAILY [facility] Last Admin: 09/15/19 08:55 Dose: 81 mg Documented by: Atorvastatin Calcium (Lipitor) 80 mg PO BEDTIME [facility] Last Admin: 09/15/19 19:30 Dose: 80 mg Documented by: Atropine Sulfate (Atropine) 0.5 mg IVP PRN PRN PRN Reason: Symptomatic bradycardia Bumetanide (Bumex) 2 mg PO DAILY [facility] Last Admin: 09/15/19 08:56 Dose: 2 mg Documented by: Clopidogrel Bisulfate (Plavix) 75 mg PO DAILY [facility] Last Admin: 09/15/19 08:55 Dose: 75 mg Documented by: Dextrose (D50w) 25 ml IVP ONCE PRN; Protocol PRN Reason: hypoglycemia protocol Dextrose (D50w) 50 ml IVP PRN PRN; Protocol PRN Reason: hypoglycemia protocol Fentanyl (Duragesic 50 Mcg Patch) 1 patch TRANSDERMA Q72H [facility] Last Admin: 09/14/19 22:04 Dose: 1 patch Documented by: Gabapentin (Neurontin) 100 mg PO BEDTIME [facility] Last Admin: 09/15/19 19:30 Dose: 100 mg Documented by: Glucagon (Glucagen) 1 mg IM ONCE PRN; Protocol PRN Reason: Adult Acute Hypoglycemia Prot. Dextrose (D5w) 500 mls @ 100 mls/hr IV ONCE PRN; Protocol PRN Reason: Adult Acute Hypoglycemia Prot Insulin Aspart (Novolog) 0 unit SUBCUT TIDWM [facility]; Protocol Last Admin: 09/16/19 07:12 Dose: Not Given Documented by: Insulin Glargine (Lantus) 12 unit SUBCUT BEDTIME [facility] Last Admin: 09/15/19 19:46 Dose: 12 unit Documented by: Isosorbide Mononitrate (Imdur) 30 mg PO BID [facility] Last Admin: 09/15/19 17:25 Dose: 30 mg Documented by: Levothyroxine Sodium (Synthroid) 50 mcg PO DAILY [facility] Last Admin: 09/15/19 08:55 Dose: 50 mcg Documented by: Magnesium Hydroxide (Milk Of Magnesia) 30 ml PO DAILY PRN PRN Reason: CONSTIPATION Last Admin: 09/12/19 07:12 Dose: 30 ml Documented by: Naloxone HCl (Narcan) 0.1 mg IVP Q2M PRN PRN Reason: RESPIRATORY RATE < 8/MIN Nifedipine (Procardia Xl) 30 mg PO DAILY [facility] Last Admin: 09/15/19 08:56 Dose: 30 mg Documented by: Nitroglycerin (Nitrostat) 0.4 mg SUBLINGUAL Q5M PRN PRN Reason: CHEST PAIN Nitroglycerin (Nitro-Bid) 1 inch TOPICAL Q6H PRN PRN Reason: CHEST PAIN Last Admin: 09/11/19 10:05 Dose: 1 inch Documented by: Ondansetron HCl (Zofran) 4 mg IVP Q6H PRN PRN Reason: NAUSEA AND VOMITING Last Admin: 09/10/19 05:01 Dose: 4 mg Documented by: Polyethylene Glycol (Miralax) 17 gm PO DAILY [facility] Last Admin: 09/15/19 08:54 Dose: 17 gm Documented by: Potassium Chloride (Klor-Con 10) 40 meq PO DAILY [facility] Senna/Docusate Sodium (Senna-S) 1 tab PO BID [facility] Last Admin: 09/15/19 17:25 Dose: 1 tab Documented by: Temazepam (Restoril) 15 mg PO BEDTIME PRN PRN Reason: INSOMNIA Last Admin: 09/12/19 21:45 Dose: 15 mg Documented by: Vitals/I&O/Wt Last Vital Signs Temp 98.2 F 09/16/19 03:30 Pulse 74 09/16/19 03:30 Resp 20 H 09/16/19 03:30 BP 120/49 09/16/19 03:30 Pulse Ox 92 09/16/19 03:30 09/15/19 09/16/19 09/16/19 22:59 06:59 14:59 Intake Total 540 / 900 300 / 1200 Output Total 1500 / 3350 1100 / 4450 Balance -960 / -2450 -800 / -3250 Weight last 48 hrs Weight 96.615 kg Physical Exam Narrative: EXAM NARRATIVE: obese, comfortable in bed, vs noted heent- nc/at, eomi, anicteric neck supple lungs- good air movement b/l heart reg, +STEPH abd soft, nt, nd, +BS ext -b/l leg edema much improved neuro- a,a, o x 3 pulses + b/l Urinary Catheter Management^: José: Cath Placed During This Visit: yes, but has since been removed by the nurse Reason for Continuing Indwelling Catheter: Acute Urinary Retention or Obstruction Urinary Catheter Date of Insertion: 09/09/19 Urinary Catheter Time of Insertion: 11:31 Date Urinary Catheter Removed: 09/07/19 Time Urinary Catheter Discontinued: 13:08 Data : 09/16/19 04:05 09/16/19 04:05 A&P Additional A&P Information 1. FARRUKH - appears consistent with contrast related injury in setting of AMI in a diabetic. - creatinine improving, UOP excellent- - repeat cxr on 09/13/19 -shows mild chf- she had excellent diuresis. i am concerend that she may have intrinsic lung disease -dec bumex to 1 mg daily -replace k and mag as needed 2. Anemia - cont venofer 3. AMI and valvular heart disease as per cards CHF 4. dm control 5. renal okay for d/c w/ outpt renal f/u - d/w pt and RN Attestations Medical Necessity Statement*: per hospitalist Time Spent in Patient Care: 16 - 35 minutes Coding Level of Care Code Acute Brim Stretching Machine Operator for Kendall Mckeon
[2019-09-16] MEDS: NIFEdipine ER (24 hr) 30 mg Tablet PO (08:27)
[2019-09-16] MEDS: clopidogrel 75 mg Tablet PO (08:27)
[2019-09-16] MEDS: polyethylene glycol 3350 Pkt 17 gm PO (08:27)
[2019-09-16] MEDS: apixaban 5 mg Tablet 2.5 MG PO (08:27)
[2019-09-16] MEDS: sennosides-docusate Tablet 1 TAB PO (08:27)
[2019-09-16] MEDS: bumetanide 1 mg Tablet PO (08:27)
[2019-09-16] MEDS: levothyroxine 50 mcg Tablet PO (08:28)
[2019-09-16] MEDS: aspirin 81 mg EC Tablet PO (08:28)
[2019-09-16] MEDS: isosorbide mononitrate ER 30 mg Tablet PO (08:28)
--- NOTE | 2019-09-16 09:05 | PC.SOCIAL ---
IMM Updated Page 2 of IMM updated and given to patient. Initialed, dated, and timed and placed back in chart.
[2019-09-16] MEDS: ipratropium-albuterol 3 mL Neb INHALATION (09:22)
--- NOTE | 2019-09-16 10:52 | PC.NURSE ---
patient having a hard time passing bowel at this time; Hard ball formed stool noted patient reports that it feels stuck;Bowel sounds noted in all quadrants. Dr Gonzales notified and a fleets enema x1 ordered
--- NOTE | 2019-09-16 11:05 | PC.CHAP ---
Pastoral Care Encounter/Spiritual Assessment Type of Contact [] Declined wader boot top assembler visit [] Patient/Family/Request visit [] Outpatient visit [] Follow-up visit [] Physician referral [] Code/Alert [x] Routine visit [] Staff referral [] Actively dying [] Patient sleeping [] Family support [] [] Out of room [] Palliative care [] [] Receiving care in room [] Pre-surgical visit [] Trauma [] Long length of stay [] ICU visit [] Other: Relational/Emotional Strength [x] Patient feels connected with others/family/visitors/staff [] Distress [] Loneliness/isolation [] Abandonment Spirituality of Patient [x] Person of Shira [x] Attends Sabianist of their Shira [x] Believes in Prayer [x] Reads Bible or Zoroastrian materials [] There are Spiritual issues to be addressed Gas Meter Installer Helper Interventions [x] Prayer [x] Active listening [x] Non-anxious presence [x] Spiritual/emotional support [] Crisis/trauma care [x] Spiritual counseling [] Bereavement support [] Provided bereavement packet [] Provided Bible/devotional materials [] Provided toy/stuffed animal, coloring book to patient or family member [] Provided Communion [] Anointing/[place] [] Salvation [] Completed spiritual assessment [] Other: Impact on Illness or Injury [] Angry [] Fearful [] Anxious [] Often cries [] Exhaustion [] Unable to work [] Unable to attend judaism [] Unable to walk/stand [] Unable to read [] Unable to drive [] Unable to eat/drink [] Unable to sleep [] Unable to be with family [] Patient intubated [x] Other: n/a Summary Patient lives alone but has a brother who lives close by to help her. Time spent with patient
[2019-09-16 11:27] LABS: Glucose Point of Care 364 mg/dL (70-110)
[2019-09-16] MEDS: mineral oil ENEMA 133 mL PR (11:39)
--- NOTE | 2019-09-16 11:55 | P.DS_ITS ---
Discharge Providers Date of Admission: 09/05/19 20:17 Date of Discharge: September 16, 2019 Attending Provider at Admission: Thania Jean Baptiste MD Attending Provider at Discharge: Alejandro Gonzales MD Primary Care Provider: Betsy Nuno DO Diagnoses at Discharge Discharge Diagnosis (1) ACS (acute coronary syndrome): Status: Acute Problem details: ST elevation SD. Status post PCI. (2) Acute kidney injury superimposed on chronic kidney disease: Status: Acute Problem details: Secondary to contrast-induced nephropathy (3) Heart failure with preserved ejection fraction: Status: Acute Qualifiers: Heart failure chronicity: acute on chronic Qualified Code(s): I50.33 - Acute on chronic diastolic (congestive) heart failure (4) Atrial fibrillation by electrocardiogram: Status: Acute (5) Aortic stenosis: Status: Acute Qualifiers: Cardiac valve disease etiology: nonrheumatic Qualified Code(s): I35.0 - Nonrheumatic aortic (valve) stenosis (6) Diabetes: Status: Acute Qualifiers: Diabetes mellitus type: type 2 (7) Constipation due to opioid therapy: Status: Acute (8) Urinary retention: Status: Acute Problem details: Appears to be related to opioid medications. Reason for Visit Reason for Visit: Reason For Visit: SOB Hospital Course Discharge Summary: Patient presented with chest pain and shortness of breath. She was diagnosed with acute ST elevation SD and was taken to cardiac catheterization lab where patient had percutaneous intervention performed. Patient developed postprocedure contrast-induced nephropathy and was seen by nephrology service. No hemodialysis was performed and patient gradually improved with conservative management. She has underlying atrial fibrillation and anticoagulated with Eliquis. She had drop in hemoglobin and received 1 unit of PRBC. Her hemoglobin now gradually improving and is 8.7 this morning. Because of this patient's aspirin will be discontinued and she will be continued on Eliquis and Plavix. I will also start patient on PPI. She does not appear to have iron deficiency but further evaluation with upper endoscopy and colonoscopy could be considered after she recovers from current illness. I will let primary care physician to arrange further evaluation with endoscopy when she improves. She noted to have urinary retention and had 600 mL of urine out when José catheter was initially placed on 05 September. José was removed and had to be replaced back of 08 September and I cannot find any documentation as what was urinary output at that time once José was placed. She is on chronic opioid therapy which is likely playing a role in her urinary retention. I will keep José catheter in and request outpatient follow-up with Dr. Dodd. Patient had evidence of constipation which again felt to be related to opiate therapy. Bowel regimen medications will be prescribed including as needed fleets enema. She had a hard stool earlier today and we will perform mineral oil fleets enema and make sure she is doing well prior to discharge to nursing facility for further rehabilitation. Patient had asymptomatic bradycardia and it appears that her beta-gato was discontinued. Because of her underlying medical history and atrial fibrillation I will restart at the lower dose 25 mg twice daily. Will make appointment to see Dr. Estrada in couple weeks. This morning patient denies any complaints including shortness of breath or chest pain. Her creatinine further improving. Her appetite is adequate and she feels strong enough to be dismissed to nursing facility today. She was treated here with bronchodilators and reports improvement in her breathing therefore will request outpatient follow-up with Dr. Mansfield. I will request lab work in several days with results sent to primary care physician. Physical Exam Const: COMMON NORMALS: no apparent distress and oriented x3 Resp: COMMON NORMALS: normal respiratory effort and clear to auscultation bilaterally AUSCULTATION: clear to auscultation bilaterally OTHER: Overall decreased air movement throughout but clear. Cardio: COMMON NORMALS: regular rate, regular rhythm and S2 normal heart sound RATE: regular rate RHYTHM: regular rhythm HEART SOUNDS: S2 normal OTHER: No lower extremity edema GI: COMMON NORMALS: normal to inspection, nondistended, normoactive bowel sounds, soft to palpation and non-tender PALPATION: Yes soft Neuro: COMMON NORMALS: oriented x3 and no focal motor deficits Urinary Catheter Management^: José: Cath Placed During This Visit: yes, but has since been removed by the nurse Reason for Continuing Indwelling Catheter: Acute Urinary Retention or Obstruction Urinary Catheter Date of Insertion: 09/09/19 Urinary Catheter Time of Insertion: 11:31 Date Urinary Catheter Removed: 09/07/19 Time Urinary Catheter Discontinued: 13:08 Discharge Data Data Completed and Pending: Completed Studies During Hospitalization Category Date Time Status XR chest 1V jenna ble [id number] Routine Exams 09/11/19 09:22 Completed XR chest 1V jenna ble [id number] Urgent Exams 09/05/19 14:12 Completed XR chest 2V* [id number] Stat Exams 09/13/19 07:34 [place] [id number] Routin e Ultrasound 09/10/19 10:39 Completed US renal BI with bladder Routine Ultrasound 09/09/19 13:41 Completed Pending at discharge Category Date Time 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 Stat Exams 09/06/19 18:45 Taken Comprehensive Met abolic Panel AM LA BS Lab 09/17/19 04:00 Ordered Comprehensive Met abolic Panel AM [facility] BS Lab 09/18/19 04:00 Ordered Comprehensive Met abolic Panel AM LA BS Lab 09/19/19 04:00 Ordered Magnesium AM LABS Lab 09/17/19 04:00 Ordered Magnesium AM LABS Lab 09/18/19 04:00 Ordered Phosphorus AM LAB S Lab 09/17/19 04:00 Ordered Phosphorus AM LAB S Lab 09/18/19 04:00 Ordered Labs from last 24 hours 09/16/19 09/16/19 09/16/19 11:16 06:25 04:05 WBC RBC Hgb Hct MCV MCH MCHC RDW Plt Count MPV Neut % (Auto) Lymph % (Auto) [place] % (Auto) Eos % (Auto) Baso % (Auto) Neut # (Auto) Lymph # (Auto) [place] # (Auto) Eos # (Auto) Baso # (Auto) Nucleated RBC % (a uto) Nucleated RBCs # Sodium 138 Potassium 3.7 Chloride 98 Carbon Dioxide 27 Anion Gap 16.7 BUN 64 H Creatinine 2.5 H GFR Calculation 19.1 L Glucose 107 POC Glucose 364 125 Calculated Osmolal ity 285 Calcium 9.2 Phosphorus Magnesium Total Bilirubin 0.6 AST 22 ALT 14 Alkaline Phosphata se 100 Total Protein 6.9 Albumin 3.2 L Globulin 3.7 09/16/19 09/16/19 09/15/19 04:05 04:05 19:10 WBC 5.8 RBC 3.05 L Hgb 8.7 L Hct 27.6 L MCV 90.5 MCH 28.5 MCHC 31.5 RDW 16.8 H Plt Count 183 MPV 11.3 H Neut % (Auto) 56.4 Lymph % (Auto) 24.1 [place] % (Auto) 14.3 Eos % (Auto) 4.0 Baso % (Auto) 0.7 Neut # (Auto) 3.3 Lymph # (Auto) 1.4 [place] # (Auto) 0.8 Eos # (Auto) 0.2 Baso # (Auto) 0.0 Nucleated RBC % (a uto) 0 Nucleated RBCs # 0.0 Sodium Potassium Chloride Carbon Dioxide Anion Gap BUN Creatinine GFR Calculation Glucose POC Glucose 230 Calculated Osmolal ity Calcium Phosphorus 3.3 Magnesium 2.0 Total Bilirubin AST ALT Alkaline Phosphata se Total Protein Albumin Globulin 09/15/19 16:58 WBC RBC Hgb Hct MCV MCH MCHC RDW Plt Count MPV Neut % (Auto) Lymph % (Auto) [place] % (Auto) Eos % (Auto) Baso % (Auto) Neut # (Auto) Lymph # (Auto) [place] # (Auto) Eos # (Auto) Baso # (Auto) Nucleated RBC % (a uto) Nucleated RBCs # Sodium Potassium Chloride Carbon Dioxide Anion Gap BUN Creatinine GFR Calculation Glucose POC Glucose 193 Calculated Osmolal ity Calcium Phosphorus Magnesium Total Bilirubin AST ALT Alkaline Phosphata se Total Protein Albumin Globulin Vitals: Last Vital Signs Temp 98.7 F 09/16/19 07:43 Pulse 77 09/16/19 09:24 Resp 19 H 09/16/19 09:24 BP 101/57 09/16/19 07:43 Pulse Ox 95 09/16/19 09:24 Discharge Plan Discharge Patient Disposition: Xfer SNF Condition: Stable Prescriptions: New clopidogrel 75 mg Tablet 75 mg PO DAILY Qty: 30 RF: 0 sennosides-docusate sodium 8.6-50 mg Tablet 1 tab PO BID Qty: 60 RF: 0 bumetanide 1 mg Tablet 1 mg PO DAILY Qty: 30 RF: 0 Dexilant 60 mg capsule,biphase delayed releas 60 mg PO DAILY Qty: 30 RF: 0 mineral oil [Fleet Mineral Oil] Enema 118 ml [place] DAILY PRN (Reason: constipation) Qty: 600 RF: 0 insulin aspart U-100 [Novolog U-100 Insulin aspart] 100 unit/mL Solution 0 unit SUBCUT TIDWM Qty: 360 RF: 0 polyethylene glycol 3350 [Miralax] 17 gram Powder In Packet 17 g PO DAILY Qty: 30 RF: 0 ipratropium-albuterol 0.5 mg-3 mg(2.5 mg base)/3 mL Solution For Nebulization 3 ml inhalation Q4H PRN (Reason: Shortness Of Breath) Qty: 360 RF: 0 potassium chloride 10 mEq Tablet Extended Release 20 meq PO DAILY Qty: 30 RF: 0 Continued fentanyl 50 mcg/hr patch 72 hour 50 mcg topical Q72H RF: 0 gabapentin 100 mg capsule 100 mg PO BEDTIME RF: 0 levothyroxine 50 mcg tablet 50 mcg PO DAILY RF: 0 insulin aspart U-100 [Novolog Flexpen U-100 Insulin] 100 unit/mL (3 mL) insulin pen See Protocol unit SUBCUT AC RF: 0 rosuvastatin 20 mg tablet 20 mg PO BEDTIME RF: 0 sertraline 25 mg tablet 25 mg PO DAILY RF: 0 Eliquis 5 mg Tablet 2.5 mg PO BID Qty: 30 RF: 0 isosorbide mononitrate 30 mg tablet extended release 24 hr 30 mg PO BID Qty: 0 RF: 0 Zofran 4 mg Tablet 4 mg PO BID PRN (Reason: Nausea) RF: 0 nifedipine 30 mg Tablet Extended Release 30 mg PO DAILY RF: 0 Lantus Solostar U-100 Insulin 100 unit/mL (3 mL) Insulin Pen 12 unit SUBCUT DAILY RF: 0 Changed metoprolol tartrate 50 mg tablet 25 mg PO BID Qty: 60 RF: 0 Discontinued bumetanide 2 mg tablet 2 mg PO DAILY RF: 0 glipizide 10 mg tablet 10 mg PO DAILY RF: 0 potassium chloride 10 mEq tablet extended release 10 meq PO DAILY RF: 0 aspirin 81 mg tablet,delayed release (DR/EC) 81 mg PO DAILY Qty: 30 RF: 0 Discharge Orders: Discharge Order (Routine); Ordered 09/16/19 Ordered By: Alejandro Gonzales Other Ambulatory Orders: Complete Blood Count w/Auto (Routine) Timeframe: 3 Days Location: Determined by Patient Ordered By: Alejandro Gonzales Comprehensive Metabolic Panel (Routine) Timeframe: 3 Days Facility: [facility] - Location: Lab - Main Lab Ordered By: Alejandro Gonzales Referrals: [facility] [Outside] Edgardo Dodd MD [Physician] - 1 week Ruchi Estrada MD [Physician] - 2 weeks Vanesa Mansfield MD [Physician] - 4-7 days Betsy Nuno DO [Primary Care Provider] - 4-7 days Discharge Diet: Cardiac Discharge Activity: Increase activity as tolerated Patient Instructions: Left Heart Catheterization (DC), Right Heart Catheterization (DC), Coronary Angioplasty (DC) Activity Restrictions/Additional Instructions: Please call your doctor or present to emergency department if your condition worsens or you develop diarrhea, lightheadedness or dizziness or you see blood in your stool or black stool. Please discuss with your doctor to be further evaluated with EGD/colonoscopy and BANK OFFICER examination for further evaluation of your anemia. 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
--- NOTE | 2019-09-16 13:53 | PC.NURSE ---
REPORT CALLED TO ANNABELLE ZAYAS AT [facility] ; ALL QUESTIONS ANSWERED ; WILL CALL HER BACK WHEN PATIENT LEAVES FACILITY ; BROTHER AND SS NOTIFIED
--- NOTE | 2019-09-16 15:38 | PC.NURSE ---
PATIENT IV REMOVED WITH NO BLEEDING NOTED AND PRESSURE DRESSING APPLIED ; VSS ; PATIENT TO EXIT VIA WHEELCHAIR TO MEET TRANSPORT TEAM ; PATIENT DENIES ANY CP OR SOB AT THIS TIME
--- NOTE | 2019-09-16 18:17 | PM.PN ---
Subjective Subjective: Interval history: Creatinine has further improved. Patient is feeling much better Medications: Reviewed: Yes Medication Review Details: Current Medications Acetaminophen (Tylenol) 650 mg PO Q6H PRN PRN Reason: MILD PAIN Last Admin: 09/13/19 19:57 Dose: 650 mg Documented by: Albuterol/Ipratropium (Duoneb) 3 ml INHALATION Q4H PRN PRN Reason: SHORTNESS OF BREATH Alprazolam (Xanax) 0.25 mg PO TID PRN PRN Reason: ANXIETY Last Admin: 09/15/19 19:30 Dose: 0.25 mg Documented by: Apixaban (Eliquis) 2.5 mg PO BID [facility] Last Admin: 09/15/19 17:24 Dose: 2.5 mg Documented by: Aspirin (Aspirin Ec) 81 mg PO DAILY [facility] Last Admin: 09/15/19 08:55 Dose: 81 mg Documented by: Atorvastatin Calcium (Lipitor) 80 mg PO BEDTIME [facility] Last Admin: 09/15/19 19:30 Dose: 80 mg Documented by: Atropine Sulfate (Atropine) 0.5 mg IVP PRN PRN PRN Reason: Symptomatic bradycardia Bumetanide (Bumex) 2 mg PO DAILY [facility] Last Admin: 09/15/19 08:56 Dose: 2 mg Documented by: Clopidogrel Bisulfate (Plavix) 75 mg PO DAILY [facility] Last Admin: 09/15/19 08:55 Dose: 75 mg Documented by: Dextrose (D50w) 25 ml IVP ONCE PRN; Protocol PRN Reason: hypoglycemia protocol Dextrose (D50w) 50 ml IVP PRN PRN; Protocol PRN Reason: hypoglycemia protocol Fentanyl (Duragesic 50 Mcg Patch) 1 patch TRANSDERMA Q72H [facility] Last Admin: 09/14/19 22:04 Dose: 1 patch Documented by: Gabapentin (Neurontin) 100 mg PO BEDTIME [facility] Last Admin: 09/15/19 19:30 Dose: 100 mg Documented by: Glucagon (Glucagen) 1 mg IM ONCE PRN; Protocol PRN Reason: Adult Acute Hypoglycemia Prot. Dextrose (D5w) 500 mls @ 100 mls/hr IV ONCE PRN; Protocol PRN Reason: Adult Acute Hypoglycemia Prot Insulin Aspart (Novolog) 0 unit SUBCUT TIDWM [facility]; Protocol Last Admin: 09/16/19 07:12 Dose: Not Given Documented by: Insulin Glargine (Lantus) 12 unit SUBCUT BEDTIME [facility] Last Admin: 09/15/19 19:46 Dose: 12 unit Documented by: Isosorbide Mononitrate (Imdur) 30 mg PO BID [facility] Last Admin: 09/15/19 17:25 Dose: 30 mg Documented by: Levothyroxine Sodium (Synthroid) 50 mcg PO DAILY [facility] Last Admin: 09/15/19 08:55 Dose: 50 mcg Documented by: Magnesium Hydroxide (Milk Of Magnesia) 30 ml PO DAILY PRN PRN Reason: CONSTIPATION Last Admin: 09/12/19 07:12 Dose: 30 ml Documented by: Naloxone HCl (Narcan) 0.1 mg IVP Q2M PRN PRN Reason: RESPIRATORY RATE < 8/MIN Nifedipine (Procardia Xl) 30 mg PO DAILY [facility] Last Admin: 09/15/19 08:56 Dose: 30 mg Documented by: Nitroglycerin (Nitrostat) 0.4 mg SUBLINGUAL Q5M PRN PRN Reason: CHEST PAIN Nitroglycerin (Nitro-Bid) 1 inch TOPICAL Q6H PRN PRN Reason: CHEST PAIN Last Admin: 09/11/19 10:05 Dose: 1 inch Documented by: Ondansetron HCl (Zofran) 4 mg IVP Q6H PRN PRN Reason: NAUSEA AND VOMITING Last Admin: 09/10/19 05:01 Dose: 4 mg Documented by: Polyethylene Glycol (Miralax) 17 gm PO DAILY [facility] Last Admin: 09/15/19 08:54 Dose: 17 gm Documented by: Potassium Chloride (Klor-Con 10) 40 meq PO DAILY [facility] Senna/Docusate Sodium (Senna-S) 1 tab PO BID [facility] Last Admin: 09/15/19 17:25 Dose: 1 tab Documented by: Temazepam (Restoril) 15 mg PO BEDTIME PRN PRN Reason: INSOMNIA Last Admin: 09/12/19 21:45 Dose: 15 mg Documented by: Vitals/I&O/Wt Last Vital Signs Temp 97.9 F 09/16/19 15:40 Pulse 76 09/16/19 15:40 Resp 18 09/16/19 15:40 BP 158/69 09/16/19 15:40 Pulse Ox 98 09/16/19 15:40 09/16/19 09/16/19 09/16/19 06:59 14:59 22:59 Intake Total 300 / 1200 480 / 480 Output Total 1100 / 4450 240 / 240 Balance -800 / -3250 240 / 240 Weight last 48 hrs Weight 213 lb Physical Exam Narrative: EXAM NARRATIVE: GENERAL: Patient is alert, awake and oriented x3. NECK: No jugular vein distension. HEENT: No cyanosis. No icterus. No pallor. HEART: Irregularly irregular S1 and S2. No murmur, rub or gallop. LUNGS:Clear to auscultate bilaterally. . CENTRAL NERVOUS SYSTEM: Grossly nonfocal. EXTREMITIES: Lower extremities with trace edema bilaterally. Const: COMMON NORMALS: oriented x3; apparent distress EXAM LIMITATIONS: no altered mental status and no behavioral limitations GENERAL APPEARANCE: cooperative and comfortable ORIENTATION/CONSCIOUSNESS: Yes awake, Yes oriented to person, Yes oriented to place and Yes oriented to time HENMT: COMMON NORMALS: normocephalic HEAD & SCALP: normocephalic Resp: EFFORT & INSPECTION: Yes able to speak in complete sentences (Not able to complete sentences, short of breath) and Yes tachypneic AUSCULTATION: crackles and rales bilateral Cardio: COMMON NORMALS: regular rate (Irregularly irregular), S1 normal heart sound and S2 normal heart sound RATE: regular rate (Irregularly irregular) HEART SOUNDS: S1 normal and S2 normal Extremity: OTHER: No bilateral lower extremity edema Neuro: COMMON NORMALS: oriented x3 and CN's II-XII intact bilaterally SENSORIUM/ORIENTATION: Yes oriented to person, Yes oriented to place and Yes oriented to time Psych: COMMON NORMALS: mental status grossly normal Urinary Catheter Management^: José: Cath Placed During This Visit: yes, but has since been removed by the nurse Reason for Continuing Indwelling Catheter: Acute Urinary Retention or Obstruction Urinary Catheter Date of Insertion: 09/09/19 Urinary Catheter Time of Insertion: 11:31 Date Urinary Catheter Removed: 09/07/19 Time Urinary Catheter Discontinued: 13:08 Data : 09/16/19 04:05 09/16/19 04:05 A&P Assessment and plan (1) ACS (acute coronary syndrome): Stable Status post PCI History of fine. Continue Same Medicine. Patient will be going to [facility] today. Status: Acute (2) Acute kidney injury superimposed on chronic kidney disease: Creatinine Has improved to almost baseline. Status: Acute (3) Heart failure with preserved ejection fraction: Well compensated continue current regimen Status: Acute Qualifiers: Heart failure chronicity: acute on chronic Qualified Code(s): I50.33 - Acute on chronic diastolic (congestive) heart failure (4) Atrial fibrillation by electrocardiogram: Rate controlled Not on anticoagulation due to severe anemia Status: Acute (5) Aortic stenosis: [id number] aortic stenosis. We'll continue to monitor. Status: Acute Qualifiers: Cardiac valve disease etiology: nonrheumatic Qualified Code(s): I35.0 - Nonrheumatic aortic (valve) stenosis (6) Diabetes: As per medicine. Status: Acute Qualifiers: Diabetes mellitus type: type 2 Attestations Medical Necessity Statement*: Patient can be discharged. Follow up with cardiology in 7 days Coding Level of Care Code Established Pt Acute Oral And Maxillofacial Surgeon for Chg Fwd Patient Type Established History Expanded Problem Focused Exam Expanded Problem Focused Medical Decision Making Moderate Complexity Diagnoses ACS (acute coronary syndrome) I24.9 Acute kidney injury superimposed on chronic kidney disease N17.9; N18.9 Heart failure with preserved ejection fraction I50.33 Heart failure chronicity: acute on chronic Atrial fibrillation by electrocardiogram I48.91 Aortic stenosis I35.0 Cardiac valve disease etiology: nonrheumatic Diabetes E11.9 Diabetes mellitus type: type 2
== END 2019-09-16 15:41 | disposition skilled nursing facility (03) | DRG 246 ==
LOC: ER 19:14 → MEDSURG 09-06 07:26 → CSU 09-06 12:41
PROVIDERS: Family Medicine; Internal Medicine Cardiovascular Disease; Internal Medicine Nephrology; Admitting Provider Student in an Organized Health Care Education/Training Program; Emergency Provider Emergency Medicine; Family Provider Family Medicine; PCP Family Medicine; Visit Provider Internal Medicine
PROC: 027034Z Dilation of Coronary Artery, One Artery with Drug-eluting Intraluminal Device, Percutaneous Approach (ICD-10-PCS; principal; 2019-09-06 08:30)
PROC: 027034Z Dilation of Coronary Artery, One Artery with Drug-eluting Intraluminal Device, Percutaneous Approach (ICD-10-PCS; 2019-09-06 08:30)
DX: I21.3 ST elevation (STEMI) myocardial infarction of unspecified site (principal); I50.33 Acute on chronic diastolic (congestive) heart failure; N17.9 Acute kidney failure, unspecified; N18.4 Chronic kidney disease, stage 4 (severe); Z68.41 Body mass index [BMI] 40.0-44.9, adult; N39.0 Urinary tract infection, site not specified; I48.20 Chronic atrial fibrillation, unspecified; I13.0 Hypertensive heart and chronic kidney disease with heart failure and stage 1 through stage 4 chronic kidney disease, or unspecified chronic kidney disease; I24.9 Acute ischemic heart disease, unspecified; T56.891A Toxic effect of other metals, accidental (unintentional), initial encounter; N14.3 Nephropathy induced by heavy metals; Y92.239 Unspecified place in hospital as the place of occurrence of the external cause; I35.0 Nonrheumatic aortic (valve) stenosis; E11.22 Type 2 diabetes mellitus with diabetic chronic kidney disease; R33.9 Retention of urine, unspecified; K59.03 Drug induced constipation; T40.2X5A Adverse effect of other opioids, initial encounter; Z79.01 Long term (current) use of anticoagulants; Z79.82 Long term (current) use of aspirin; Z79.4 Long term (current) use of insulin; D63.1 Anemia in chronic kidney disease; I25.10 Atherosclerotic heart disease of native coronary artery without angina pectoris; I25.2 Old myocardial infarction; E78.5 Hyperlipidemia, unspecified; K21.9 Gastro-esophageal reflux disease without esophagitis; M19.90 Unspecified osteoarthritis, unspecified site; Z87.891 Personal history of nicotine dependence; E03.9 Hypothyroidism, unspecified; E66.01 Morbid (severe) obesity due to excess calories; E83.39 Other disorders of phosphorus metabolism
CPT/HCPCS: 12345; 36415; 36416; 36430; 51702; 51798; 71045; 71046; 76770; 76857; 80048; 80053; 80061; 81001; 82310; 82436; 82550; 82728; 82962; 83036; 83540; 83550; 83735; 83880; 83883; 83970; 84100; 84133; 84156; 84300; 84484; 85014; 85018; 85025; 85347; 85610; 85730; 86335; 86803; 86850; 86900; 86920; 87040; 87340; 87804; 92920; 93005; 93454; 93971; 94640; 94660; 96372; 96375; 97110; 97116; 97161; 97162; 97530; 99283; C1725; C1769; C1874; C1887; C1894; C9600; J0461; J1200; J1644; J1756; J1815; J1940; J2001; J2250; J2270; J2405; J3010; J3490; J7030; J7040; P9016; Q3014; Q9967

== ENCOUNTER 2019-09-30 21:35 | Inpatient (IN) | payer MEDICARE, MEDICAID, SELFPAY ==
[2019-09-30 21:38] VITALS: BP 136/56; PULSE 72; RESP 18; TEMP 39.1; O2SAT 99; BMI 38.3
--- NOTE | 2019-09-30 21:38 | XR_ITS ---
WS: [id number] PORTABLE CHEST HISTORY: fever COMPARISON: 09/13/2019 Minimal atelectasis at the LEFT costophrenic angle. No pneumonia. Normal vasculature. No pleural effu lucy or pneumothorax. Cardiac size: Normal. Mediastinum/Aorta: Normal mediastinum. No osseous abnormality seen. XR/XR chest 1V portable [id number] IMPRESSION: Unremarkable portable chest.
--- NOTE | 2019-09-30 21:40 | ED_ITS ---
HPI - Abdominal Pain General: Chief Complaint: Abdominal Pain Stated Complaint: abd pain Time Seen by Provider: 09/30/19 21:38 Source: patient and EMS Mode of arrival: EMS Limitations: no limitations History of Present Illness: HPI narrative: 68-year-old female who recently had an UT 1 month ago and just got discharged from [facility] 2 days ago. She states she started having severe left upper quadrant pain roughly 2 hours ago. States pain is sharp in nature and rates an 8 out of 10. She is also had diarrhea and a fever of 101 at home. She denies any cough. She denies any worsening improving factors. MD elicited complaint: abdominal pain Pertinent past history: none Onset (ago): hour(s) Pain Consistency: constant Location: [facility] Severity: moderate Quality: sharp Radiation: none Migration to: no migration Exacerbating factors: nothing Relieving factors: nothing PFSH ED PFSH: Social History Smoking and tobacco status: former smoker Quit status (tobacco): has quit using tobacco Former quit date comment: Smoking in her 20s Alcohol intake: never Caregiver/support person: Yes (Home health services Friday) Lives independently: Yes Housing: House Marital status: Single History of recent travel: No Current gender identity: Female Course Vital Signs: Vital signs: Vital Signs Temperature 102.3 F H 09/30/19 21:38 Pulse Rate 75 09/30/19 23:30 Respiratory Rate 18 09/30/19 23:30 Blood Pressure 145/72 09/30/19 23:30 Pulse Oximetry 95 09/30/19 23:30 MDM - Abdominal Pain MDM Narrative: Medical decision making narrative: Patient presents here with fever also with abdominal and flank pain likely from a pyelonephritis. Patient does have bacteria in her urine and CT shows pyelonephritis. Patient has no signs of pneumonia. Patient started on IV Rocephin. She has no signs of septic shock. I spoke to hospitalist and will admit. Lab Data: Labs: Lab Results 09/30/19 09/30/19 09/30/19 Range/Units 22:11 22:11 22:11 WBC 9.0 (4.0-10.0) 10^3/ uL RBC 2.96 L (4.1-5.3) 10^6/u L Hgb 8.7 L (11.5-15.3) g/dL Hct 27.7 L (37.0-47.0) % MCV 93.6 (81-99) fL MCH 29.4 (28.0-34.0) pg MCHC 31.4 (30.0-36.0) g/dL RDW 18.5 H (12.1-15.1) % Plt Count 144 (130-400) 10^3/c mm MPV 11.9 H (7.4-10.4) fL Neut % (Auto) 85.5 % Lymph % (Auto) 3.0 % Hanson % (Auto) 9.1 % Eos % (Auto) 0.2 % Baso % (Auto) 0.6 % Neut # (Auto) 7.7 (1.8-7.7) 10^3/u L Lymph # (Auto) 0.3 L (0.8-4.8) 10^3/u L Hanson # (Auto) 0.8 (0.2-0.9) 10^3/u L Eos # (Auto) 0.0 (0.0-0.8) 10^3/u L Baso # (Auto) 0.1 (0.0-0.1) 10^3/u L Nucleated RBC % (a uto) 0 % Nucleated RBCs # 0.0 /100WBC PT 17.60 H (10.5-13.3) SECO NDS INR 1.44 H (0.8-1.2) Sodium 130 L (136-145) mmol/L Potassium 4.0 (3.5-5.1) mmol/L Chloride 96 L (98-107) mmol/L Carbon Dioxide 21 L (22-29) mmol/L Anion Gap 17.0 (5-19) BUN 33 H (8-23) mg/dL Creatinine 1.9 H (0.5-0.9) mg/dL GFR Calculation 26.2 L (90-130) mL/min Glucose 148 H (65-115) mg/dL Calculated Osmolal ity 270 L (285-295) mOsm/k g Lactate (0.5-2.2) mmol/L Calcium 8.9 (8.5-10.5) mg/dL Magnesium 1.7 (1.7-2.3) mg/dL Total Bilirubin 0.9 (0.15-1.2) mg/dL AST 17 (0-32) U/L ALT 12 (0-33) U/L Alkaline Phosphata se 89 (35-105) IU/L Total Protein 6.6 (6.6-8.7) g/dL Albumin 3.2 L (3.5-5.2) g/dL Globulin 3.4 (1.3-4.6) g/dL Lipase 7 L (13-60) U/L Urine Color (Yellow) Urine Appearance (CLEAR) Urine pH (5-7) Ur Specific Gravit y (1.005-1.030) Urine Protein (Negative) Urine Glucose (UA) (Normal) Urine Ketones (Negative) Urine Blood (Negative) Urine Nitrate (Negative) Urine Bilirubin (NEGATIVE) Urine Urobilinogen (Negative) mg/dL Ur Leukocyte Greer ase (Negative) Urine RBC (0-2) /hpf Urine WBC (0-5) /hpf Ur Squamous Epith Cells (0-5) Urine Bacteria (NONE) Influenza Type A A g (Negative) Influenza Type B A g (Negative) 09/30/19 09/30/19 09/30/19 Range/Units 22:11 22:18 22:24 WBC (4.0-10.0) 10^3/ uL RBC (4.1-5.3) 10^6/u L Hgb (11.5-15.3) g/dL Hct (37.0-47.0) % MCV (81-99) fL MCH (28.0-34.0) pg MCHC (30.0-36.0) g/dL RDW (12.1-15.1) % Plt Count (130-400) 10^3/c mm MPV (7.4-10.4) fL Neut % (Auto) % Lymph % (Auto) % Hanson % (Auto) % Eos % (Auto) % Baso % (Auto) % Neut # (Auto) (1.8-7.7) 10^3/u L Lymph # (Auto) (0.8-4.8) 10^3/u L Hanson # (Auto) (0.2-0.9) 10^3/u L Eos # (Auto) (0.0-0.8) 10^3/u L Baso # (Auto) (0.0-0.1) 10^3/u L Nucleated RBC % (a uto) % Nucleated RBCs # /100WBC PT (10.5-13.3) SECO NDS INR (0.8-1.2) Sodium (136-145) mmol/L Potassium (3.5-5.1) mmol/L Chloride (98-107) mmol/L Carbon Dioxide (22-29) mmol/L Anion Gap (5-19) BUN (8-23) mg/dL Creatinine (0.5-0.9) mg/dL GFR Calculation (90-130) mL/min Glucose (65-115) mg/dL Calculated Osmolal ity (285-295) mOsm/k g Lactate 1.4 (0.5-2.2) mmol/L Calcium (8.5-10.5) mg/dL Magnesium (1.7-2.3) mg/dL Total Bilirubin (0.15-1.2) mg/dL AST (0-32) U/L ALT (0-33) U/L Alkaline Phosphata se (35-105) IU/L Total Protein (6.6-8.7) g/dL Albumin (3.5-5.2) g/dL Globulin (1.3-4.6) g/dL Lipase (13-60) U/L Urine Color Yellow (Yellow) Urine Appearance Cloudy (CLEAR) Urine pH 5 (5-7) Ur Specific Gravit y 1.015 (1.005-1.030) Urine Protein 2+ H (Negative) Urine Glucose (UA) Norm (Normal) Urine Ketones Negative (Negative) Urine Blood 3+ H (Negative) Urine Nitrate Negative (Negative) Urine Bilirubin Neg (NEGATIVE) Urine Urobilinogen Norm (Negative) mg/dL Ur Leukocyte Greer ase 2+ H (Negative) Urine RBC 15-25 H (0-2) /hpf Urine WBC 40-55 H (0-5) /hpf Ur Squamous Epith Cells 0-4 H (0-5) Urine Bacteria 3+ H (NONE) Influenza Type A A g Negative (Negative) Influenza Type B A g Negative (Negative) Imaging Data ^: CXR: Attestation: I personally reviewed and interpreted this imaging study as follows: My impression: no acute abnormality CT Abd/Pel: Radiologist's impression: [address] [place] [address] CT Scan Report Signed Patient: Fantasma Montalvo Unit #: [id number] : 1950 Age/Sex: 68 / F ADM Date: 09/30/19 Loc: ER Room/Bed: Attending Dr: Ordering Provider/Ordering MD: Jannie Null MD Date of Service: 09/30/19 Procedure(s): CT abdomen pelvis w con* [id number] Accession Number(s): [id number] Report Number: [id number] PROCEDURE INFORMATION: Exam: CT Abdomen And Pelvis With Contrast Exam date and time: 09/30/2019 9:58 PM Age: 68 years old Clinical indication: Nausea and other: Diarrhea; Abdominal pain; Prior surgery; Surgery type: Umbilical hernia, hysto, bilat hip, cardiac cath; Additional info: Abd pain TECHNIQUE: Imaging protocol: Computed tomography of the abdomen and pelvis with intravenous contrast. Total DLP: 1847.02 mGy-cm Radiation optimization: All CT scans at this facility use at least one of these dose optimization techniques: automated exposure control; mA and/or kV adjustment per patient size (includes targeted exams where dose is matched to clinical indication); or iterative reconstruction. Contrast material: VISI 320; Contrast volume: 75 ml; Contrast route: IV; COMPARISON: CT abdomen pelvis w con* [id number] 08/27/2017 9:13 AM FINDINGS: Liver: There is no focal abnormality within the liver. Gallbladder and bile ducts: Multiple calcified gallstones are present. Pancreas: Pancreas is moderately atrophic but otherwise unremarkable. Spleen: The spleen is normal. Adrenals: The adrenal glands are normal. Kidneys and ureters: There is some focal hypodensity in the upper pole of the right kidney suggestive of pyelonephritis. Correlation with the clinical findings is suggested. The left kidney is normal. There is no evidence of hydronephrosis. Stomach and bowel: There is no evidence of colitis/diverticulitis. Appendix: Not identified Intraperitoneal space: Unremarkable. No free air. No significant fluid collection. Vasculature: The aorta demonstrates moderate atherosclerotic calcification. Lymph nodes: Unremarkable. No enlarged lymph nodes. Bladder: Unremarkable as visualized. Reproductive: There has been a hysterectomy. Bones/joints: There are bilateral hip replacements. This causes artifact which obscures much of the pelvis anatomy. Degenerative change in scoliosis in the lumbar spine is not significantly changed from previous. Soft tissues: Unremarkable. CT/CT abdomen pelvis w con* [id number] IMPRESSION: 1. Cholelithiasis 2. Pyelonephritis in the upper pole of the right kidney Discharge Plan Discharge Patient Disposition: Admitted As Inpatient Clinical Impression: Acute pyelonephritis Condition: Stable Referrals: Betsy Nuno DO [Primary Care Provider] - Coding Level of Care Code ED Nitroglycerin Distributor for Kendall Mckeon
[2019-09-30 22:25] LABS: Basophils # 0.1 10^3/uL (0.0-0.1); Basophils % 0.6 %; Eosinophils % 0.2 %; Hematocrit 27.7 % (37.0-47.0); Hemoglobin 8.7 g/dL (11.5-15.3); Lymphocytes # 0.3 10^3/uL (0.8-4.8); Mean Corpuscular HGB Conc 31.4 g/dL (30.0-36.0); Mean Corpuscular Hemoglobin 29.4 pg (28.0-34.0); Mean Corpuscular Volume 93.6 fL (81-99); Mean Platelet Volume 11.9 fL (7.4-10.4); Monocytes # 0.8 10^3/uL (0.2-0.9); Monocytes % 9.1 %; Neutrophils # 7.7 10^3/uL (1.8-7.7); Neutrophils % 85.5 %; Nucleated Red Blood Cells % 0 %; Platelet Count 144 10^3/cmm (130-400); Red Blood Count 2.96 10^6/uL (4.1-5.3); Red Cell Distribution Width 18.5 % (12.1-15.1)
[2019-09-30 22:29] VITALS: BP 121/51; PULSE 65; RESP 17; O2SAT 100
[2019-09-30] MEDS: sodium chloride 0.9% 1,000 ML 999 ML IV (22:33)
[2019-09-30 22:37] LABS: Alanine Aminotransferase 12 U/L (0-33); Albumin Level 3.2 g/dL (3.5-5.2); Alkaline Phosphatase 89 IU/L (35-105); Aspartate Amino Transferase 17 U/L (0-32); Blood Urea Nitrogen 33 mg/dL (8-23); Calcium 8.9 mg/dL (8.5-10.5); Carbon Dioxide 21 mmol/L (22-29); Chloride 96 mmol/L (98-107); Creatinine Clr Calc Pharmacy 38.0201; Globulin 3.4 g/dL (1.3-4.6); Glomerular Filtration Rate 26.2 mL/min (90-130); Glucose 148 mg/dL (65-115); Lipase 7 U/L (13-60); Magnesium 1.7 mg/dL (1.7-2.3); Osmolality Calculated 270 mOsm/kg (285-295); Sodium 130 mmol/L (136-145); Total Bilirubin 0.9 mg/dL (0.15-1.2); Total Protein 6.6 g/dL (6.6-8.7)
[2019-09-30 22:38] LABS: Lactate (Lactic Acid level) 1.4 mmol/L (0.5-2.2)
[2019-09-30 22:48] LABS: INR 1.44 (0.8-1.2)
[2019-09-30] MEDS: iodixanol 320 mg/mL 100mL Btl IV (23:01)
[2019-09-30 23:26] LABS: Urine Color Yellow (Yellow)
[2019-09-30 23:27] LABS: Add Urine Culture? Yes; Add Urine Microscopic? YES; Bacteria Urine 3+; Bilirubin Urine Neg (NEGATIVE); Blood Urine 3+ (Negative); Glucose Urine UA Norm (Normal); Ketones Urine Negative (Negative); Leukocyte Esterase Urine 2+ (Negative); Nitrate Urine Negative (Negative); Protein Urine 2+ (Negative); RBC Urine 15-25 /hpf (0-2); Specific Gravity, Urine 1.015 (1.005-1.030); Squamous Epithelial Cell Urine 0-4 (0-5); Urine Appearance Cloudy (CLEAR); Urobilinogen Urine Norm (Negative); WBC Urine 40-55 /hpf (0-5); pH Urine 5 (5-7)
[2019-09-30 23:30] VITALS: BP 145/72; PULSE 75; RESP 18; O2SAT 95
[2019-09-30 23:31] LABS: Influenza A by IFA Negative (Negative); Influenza B by IFA Negative (Negative)
[2019-10-01] VITALS (19 sets, daily range): BP systolic 102–170; BP diastolic 49–74; PULSE 61–86; RESP 16–20; TEMP 36.5–38.4; O2SAT 92–99
[2019-10-01] MEDS: cefTRIAXone 1,000 MG in sodium chloride 0.9% (plus) 50 ML 100 MG IV (00:05)
--- NOTE | 2019-10-01 00:06 | PC.NURSE ---
Hospitalist in room
--- NOTE | 2019-10-01 00:22 | P.HP_ITS ---
Providers/Chief Complaint Primary Care Provider: Betsy Nuno DO Chief Complaint: abd pain History of Present Illness Fantasma Montalvo is a 68 year old female with a past medical history of atrial fibrillation on Eliquis, chronic kidney disease stage III-IV, history of CAD status post PCI to RCA and balloon angioplasty of proximal and mid moderate- sized diagonal branch, recent history of contrast-induced nephropathy, heart failure with preserved ejection fraction ejection fraction 55%, grade 2 diastolic dysfunction, mild pulmonary hypertension, mild aortic stenosis, mild to moderate regurg, morbid obesity, insulin-dependent type 2 diabetes mellitus, hypertension, hyperlipidemia, hypothyroidism, recent history of pansensitive E. coli UTI who presents to the emergency room due to altered mental status. During my examination, patient does not know why she is here in the hospital, she is alert and oriented x1, states that she thinks and she is in [place], does not know which hospital, states that it is Oct, 2019, president is Tanna, does not know her son's birthday, is quite forgetful during my examination. She thinks that she is here in the emergency room because she is having difficulty urinating, no dysuria, no hematuria she states that she has been having fevers at home as high as 101, no falls, no injuries, no cough, no shortness of breath, having intermittent left-sided chest pain. Denies headaches, denies blurry vision, denies facial droop, denies slurring of her speech, denies focal neurologic deficits, no falls, no difficulty coordinating, no history of strokes, no seizure-like activity, states that she lives by herself, she states that she called her brother to pick her up, does not remember why, she was able to ambulate to to the car and into the ambulance waiting room. Review of the medical record shows that on her discharge patient had a José catheter placed for acute urinary retention thought to be secondary to chronic pain medications, she was supposed to follow-up with Dr. Dodd. Patient had a telehealth appointment, long term removed José catheter, intermittent Self-ca theterization. Apparently patient was discharged home 5 days ago to the long term. Patient was actually brought in by ambulance, not sure who called the ambulance. Review of Systems Const: Reports: fever, fatigue and malaise; Denies: chills Eyes: Denies: change in vision or blurry vision ENMT: Denies: nasal congestion Resp: Denies: shortness of breath, productive cough, non-productive cough or wheezing GI: Denies: abdominal pain, nausea, vomiting, vomiting blood, diarrhea, constipation, blood in stool or black tarry stool : Denies: flank pain, painful urination or urinary frequency Musc: Denies: neck pain or back pain Skin/Breast: Denies: rash Neuro: Denies: headache, dizziness or vertigo Psych: Denies: anxiety or depression Endo: Denies: excessive urination or excessive thirst Medications/Allergies Allergies Allergy/AdvReac Type Severity Reaction Status Date / Time duloxetine [From Cymbalta] Allergy Unknown Verified 09/10/19 06:29 prochlorperazine Allergy ALGY-Anaphy Verified 09/10/19 06:29 [From Compazine] laxis sucralfate [From Carafate] Allergy Unknown Verified 09/10/19 06:29 trazodone Allergy Unknown Verified 09/10/19 06:29 zaleplon [From Sonata] Allergy Unknown Verified 09/10/19 06:29 PFSH Acute PFSH: Social History Smoking and tobacco status: former smoker Quit status (tobacco): has quit using tobacco Former quit date comment: Smoking in her 20s Alcohol intake: never Caregiver/support person: Yes (Home health services Friday) Lives independently: Yes Housing: House Marital status: Single History of recent travel: No Current gender identity: Female Vitals/I&O/Wt Last Vital Signs Temp 101.1 F H 10/01/19 00:22 Pulse 73 10/01/19 00:04 Resp 16 10/01/19 00:04 BP 147/67 10/01/19 00:04 Pulse Ox 99 10/01/19 00:04 Weight last 48 hrs Weight 86.183 kg Physical Exam Const: COMMON NORMALS: no apparent distress and oriented x3 GENERAL APPEAR ANCE: cooperative and comfortable HENMT: COMMON NORMALS: normocephalic HEAD & SCALP: normocephalic Eye: COMMON NORMALS: PERRL, EOMs intact bilaterally and no papilledema GENERAL EYE: normal appearance of both eyes PUPIL: Yes PERRL DIRECT OPHTHALMOSCOPY: Yes no papilledema Neck/C-Spine: COMMON NORMALS: full ROM, no lymphadenopathy, no JVD and thyroid normal THYROID: thyroid normal Lymph: LYMPHATIC: no lymphadenopathy noted Resp: COMMON NORMALS: normal respiratory effort, no retractions, no use of accessory muscles and clear to auscultation bilaterally AUSCULTATION: clear to auscultation bilaterally Cardio: COMMON NORMALS: no JVD, regular rate, regular rhythm, S1 normal heart sound, S2 normal heart sound, no gallops, no clicks and no murmurs RATE: regular rate RHYTHM: regular rhythm HEART SOUNDS: S1 normal and S2 normal GI: COMMON NORMALS: normal to inspection, nondistended, normoactive bowel sounds, soft to palpation, non-tender and no hepatosplenomegaly PALPATION: Y es soft and Yes no hepatosplenomegaly Extremity: COMMON NORMALS: normal to inspection, full ROM and no pedal edema Neuro: COMMON NORMALS: CN's II-XII intact bilaterally, moves all extremities and no focal motor deficits SENSORIUM/ORIENTATION: Yes alert, Yes oriented to person, No oriented to place and No oriented to time Psych: ATTITUDE: Yes withdrawn ACTIVITY/MOTOR BEHAVIOR: Yes disorganized SPEECH: Yes normal speech THOUGHT PROCESS: confused Data : 09/30/19 22:11 09/30/19 22:11 Micro: Microbiology 09/30/19 22:25 Blood Culture - Preliminary Blood SPECIMEN COLLECTED 09/30/19 22:11 Blood Culture - Preliminary Blood SPECIMEN COLLECTED A&P Assessment and plan (1) Altered mental status: -Altered mental status secondary to acute right pyelonephritis, and concerns for bacteremia, secondary to acute urinary retention -White blood cell count 9.0, sodium 130, creatinine 1.9, lactic acid 1.4, UA positive for leukocyte esterase, RBCs, WBCs, nitrate negative, 3+ blood -CT scan shows pyelonephritis in the upper pole of the right kidney -Status post 2 L bolus in the ER, received Rocephin -Blood pressure 137/85 on admission, T-max 102.3, pulse in the 70s, alert oriented x1, confused -History of pansensitive E. coli UTI a month ago Plan: -Admit to general medical floors -We will do CT of the head -Neurochecks every 4 hours -Broad-spectrum antibiotics, Zosyn -Continue IV hydration -Follow blood cultures, urine cultures -Monitor vitals closely, monitor mentation, aspiration precautions -Bladder scan every 4 hours, monitor for urinary retention, José catheter placement as required Status: Acute (2) Acute pyelonephritis: Status: Acute (3) Urinary retention: Status: Acute (4) Acute renal failure: -Creatinine 1.9 -Some of elevation of creatinine could be left over contrast-induced nephropathy from last admission -Continue IV hydration Status: Acute (5) Constipation due to opioid therapy: Status: Acute (6) Aortic stenosis: Status: Acute Qualifiers: Cardiac valve disease etiology: nonrheumatic Qualified Code(s): I35.0 - Nonrheumatic aortic (valve) stenosis (7) Atrial fibrillation by electrocardiogram: Continue Eliquis Status: Acute (8) ACS (acute coronary syndrome): -Status post denting to RCA, continue Plavix Status: Acute (9) Chest pain: Status: Acute (10) Acute kidney injury superimposed on chronic kidney disease: Status: Acute (11) Atrial flutter: Continue Eliquis, metoprolol, Cardizem Status: Acute (12) Heart failure with preserved ejection fraction: Status: Acute Qualifiers: Heart failure chronicity: acute on chronic Qualified Code(s): I50.33 - Acute on chronic diastolic (congestive) heart failure (13) Diabetes: Status: Acute Qualifiers: Diabetes mellitus type: type 2 (14) UTI (urinary tract infection): Status: Acute (15) Grade II diastolic dysfunction: Gentle hydration Status: Acute (16) Chronic anemia: -Did not tolerate aspirin on last admission, discharged on Plavix -On Eliquis for atrial fibrillation -No reported bloody or black stools -Was supposed to see surgery as outpatient for EGD colonoscopy -Hemoglobin on this admission 8.7 which is chronic Status: Acute Attestations Medical Necessity Statement*: Patient requires inpatient admission, greater than 2 midnights, for acute pyelonephritis, altered mental status, acute renal injury Coding Level of Care Code Acute Sales Service Rep for [facility] Diagnoses Altered mental status R41.82 Acute pyelonephritis N10 Urinary retention R33.9 Acute renal failure N17.9 Constipation due to opioid therapy K59.03; T40.2X5A Aortic stenosis I35.0 Cardiac valve disease etiology: nonrheumatic Atrial fibrillation by electrocardiogram I48.91 ACS (acute coronary syndrome) I24.9 Chest pain R07.9 Acute kidney injury superimposed on chronic kidney disease N17.9; N18.9 Atrial flutter I48.92 Heart failure with preserved ejection fraction I50.33 Heart failure chronicity: acute on chronic Diabetes E11.9 Diabetes mellitus type: type 2 UTI (urinary tract infection) N39.0 Grade II diastolic dysfunction I51.9 Chronic anemia D64.9
[2019-10-01] MEDS: sodium chloride 0.9% 1,000 ML 999 ML IV (00:40)
[2019-10-01 01:07] LABS: Procalcitonin 7.65 ng/mL (0-0.5)
[2019-10-01 01:18] LABS: C Reactive Protein 186.3 mg/L (0.0-4.9)
--- NOTE | 2019-10-01 02:01 | CTR_ITS ---
PROCEDURE INFORMATION: Exam: CT Head Without Contrast Exam date and time: 10/01/2019 2:03 AM Age: 68 years old Clinical indication: Pain; Headache not specified; Additional info: AMS TECHNIQUE: Imaging protocol: Computed tomography of the head without contrast. Total DLP: 1684.79 mGy-cm Radiation optimization: All CT scans at this facility use at least one of these dose optimization techniques: automated exposure control; mA and/or kV adjustment per patient size (includes targeted exams where dose is matched to clinical indication); or iterative reconstruction. COMPARISON: CT head wo con* [id number] 09/02/2016 3:01 PM FINDINGS: Brain: Motion limited exam. No hemorrhage. No edema, mass effect or midline shift. Tang-white matter differentiation is preserved.bPeriventricular and deep white matter hypodensities compatible with chronic microvascular ischemic changes. Chronic appearing basal ganglia lacunar infarcts. Ventricles: No ventriculomegaly. Bones/joints: No acute fracture. Sinuses: No acute sinusitis. Mastoid air cells: No mastoid effusion. Soft tissues: Unremarkable. CT/CT head wo con* [id number] IMPRESSION: No acute intracranial abnormality. Radiation Dose CTDIVOL = (mGy): DLP = 1684.79 (mGy-cm)
[2019-10-01 02:26] LABS: Glucose Point of Care 137 mg/dL (70-110)
[2019-10-01] MEDS: sodium chloride 0.9% 1,000 ML 100 ML IV ×2 (02:52→13:06)
[2019-10-01] MEDS: acetaminophen 325 mg Tablet PO ×2 (02:52→09:11)
[2019-10-01] MEDS: piperacillin-tazobactam 3.375 GM in sodium chloride 0.9% (plus) 50 ML IV ×3 (02:53→17:34)
[2019-10-01] MEDS: ondansetron 2 mg/ML SDV 2 mL 4 MG IVP ×2 (02:53→17:01)
--- NOTE | 2019-10-01 03:33 | PC.NURSE ---
PT HAS A 50 MCG FENTANYL PATCH ON LEFT UPPER ARM WHICH WAS PRESENT ON ADMIT
[2019-10-01 06:13] LABS: Estmated Average Glucose 151; Hemoglobin A1C 6.9 % (4.0-6.0)
[2019-10-01 06:30] LABS: Alanine Aminotransferase 9 U/L (0-33); Alkaline Phosphatase 79 IU/L (35-105); Anion Gap 18.9 (5-19); Aspartate Amino Transferase 13 U/L (0-32); Blood Urea Nitrogen 28 mg/dL (8-23); Calcium 8.2 mg/dL (8.5-10.5); Carbon Dioxide 20 mmol/L (22-29); Chloride 100 mmol/L (98-107); Globulin 3.1 g/dL (1.3-4.6); Glomerular Filtration Rate 29.8 mL/min (90-130); Glucose 161 mg/dL (65-115); Lactic Sepsis W/Reflex 0.8 mmol/L (0.5-2.2); Osmolality Calculated 280 mOsm/kg (285-295); Potassium 3.9 mmol/L (3.5-5.1); Sodium 135 mmol/L (136-145); Total Bilirubin 0.7 mg/dL (0.15-1.2); Total Protein 6.1 g/dL (6.6-8.7)
[2019-10-01 06:45] LABS: Magnesium 1.4 mg/dL (1.7-2.3); Phosphorus 3.1 mg/dL (2.5-4.5)
[2019-10-01 06:57] LABS: Glucose Point of Care 160 mg/dL (70-110)
[2019-10-01] MEDS: NIFEdipine ER (24 hr) 30 mg Tablet PO (09:12)
[2019-10-01] MEDS: sertraline 50 mg Tablet 25 MG PO (09:12)
[2019-10-01] MEDS: clopidogrel 75 mg Tablet PO (09:13)
[2019-10-01] MEDS: metoprolol tartrate 50 mg Tablet 25 MG PO ×2 (09:13→17:17)
[2019-10-01] MEDS: sennosides-docusate Tablet 1 TAB PO ×2 (09:13→17:17)
[2019-10-01] MEDS: isosorbide mononitrate ER 30 mg Tablet PO ×2 (09:13→17:17)
[2019-10-01] MEDS: levothyroxine 50 mcg Tablet PO (09:13)
[2019-10-01] MEDS: apixaban 5 mg Tablet 2.5 MG PO ×2 (09:13→17:17)
[2019-10-01] MEDS: fentaNYL 50 mcg Patch 1 PATCH TRANSDERMA (09:14)
--- NOTE | 2019-10-01 09:55 | PC.CHAP ---
Pastoral Care Encounter/Spiritual Assessment Type of Contact [] Declined soap maker visit [] Patient/Family/Request visit [] Outpatient visit [] Follow-up visit [] Physician referral [] Code/Alert [x] Routine visit [] Staff referral [] Actively dying [] Patient sleeping [] Family support [] [] Out of room [] Palliative care [] [x] Receiving care in room [] Pre-surgical visit [] Trauma [] Long length of stay [] ICU visit [] Other: Relational/Emotional Strength [] Patient feels connected with others/family/visitors/staff [] Distress [] Loneliness/isolation [] Abandonment Spirituality of Patient [] Person of Shira [] Attends Druze of their Shira [] Believes in Prayer [] Reads Bible or Restorationism materials [] There are Spiritual issues to be addressed Liability Claims Adjuster Interventions [] Prayer [] Active listening [] Non-anxious presence [] Spiritual/emotional support [] Crisis/trauma care [] Spiritual counseling [] Bereavement support [] Provided bereavement packet [] Provided Bible/devotional materials [] Provided toy/stuffed animal, coloring book to patient or family member [] Provided Communion [] Anointing/Bourg [] Salvation [x] Completed spiritual assessment [] Other: Impact on Illness or Injury [] Angry [] Fearful [] Anxious [] Often cries [] Exhaustion [] Unable to work [] Unable to attend yarsani [] Unable to walk/stand [] Unable to read [] Unable to drive [] Unable to eat/drink [] Unable to sleep [] Unable to be with family [] Patient intubated [] Other: Summary Time spent with patient
--- NOTE | 2019-10-01 10:40 | PC.OT ---
OT NOTE : OT EVALUATION ATTEMPTED THIS A.M. PATIENT REPORTS A NORIEGA AND DOES NOT WANT TO GET OOB OR EOB AT THIS TIME. REQUESTS P.M. EVALUATION.
[2019-10-01 11:17] LABS: Glucose Point of Care 273 mg/dL (70-110)
--- NOTE | 2019-10-01 16:39 | PM.PN ---
Subjective Subjective: Interval history: Patient very well-known to me from most recent admission, chart reviewed including labs, imaging. Renal function has improved, hemoglobin is stable. Hemodynamically stable, T-max of 102.3F, has been afebrile throughout the day. No urine output documented since admission. Started to have dry heaves during my visit, given Zofran. Will hold meds and oral intake for now to allow nausea to eleanor. Noted 1/4 bottles positive for GNRs, repeat set ordered. Does complain of some generalized abdominal discomfort. Medications: Reviewed: Yes Medication Review Details: Active Medications Generic Name Dose Route Start Last Admin Trade Name Freq PRN Reason Stop Dose Admin Acetaminophen 325 mg 10/01/19 02:01 10/01/19 09:11 Tylenol PO 325 mg QID PRN Administration PAIN Albuterol/Ipratrop ium 3 ml 10/01/19 02:01 Duoneb INHALATION Q4H.RESPIRATORY P RN Shortness Of Lexi th Apixaban 2.5 mg 10/01/19 09:00 10/01/19 09:13 Eliquis PO 2.5 mg BID PINA Administration Atorvastatin Calci um 80 mg 10/01/19 21:00 Lipitor PO BEDTIME PINA Bisacodyl 10 mg 10/01/19 02:01 Bisac-Evac NJ DAILY PRN CONSTIPATION Clopidogrel Bisulf ate 75 mg 10/01/19 09:00 10/01/19 09:13 Plavix PO 75 mg DAILY PINA Administration Dextrose 25 ml 10/01/19 02:01 D50w IVP ONCE PRN hypoglycemia prot ocol Protocol Dextrose 50 ml 10/01/19 02:01 D50w IVP PRN PRN hypoglycemia prot ocol Protocol Fentanyl 1 patch 10/01/19 09:00 10/01/19 09:14 Duragesic 50 Mcg Patch TRANSDERMA 1 patch Q72H PINA Administration Gabapentin 100 mg 10/01/19 21:00 Neurontin PO BEDTIME PINA Glucagon 1 mg 10/01/19 02:01 Glucagen IM ONCE PRN Adult Acute Hypog lycemia Prot. Protocol Dextrose 500 mls @ 100 mls /hr 10/01/19 02:01 D5w IV ONCE PRN Adult Acute Hypog lycemia Prot Protocol Piperacillin Sod/T azobactam 50 mls @ 12.5 mls /hr 10/01/19 02:30 10/01/19 13:06 Sod 3.375 gm/ So dium Chloride IV 12.5 mls/hr Q8H PINA Administration Protocol As Directed Sodium Chloride 1,000 mls @ 100 m ls/hr 10/01/19 02:01 10/01/19 13:06 Sodium Chloride 0.9% IV 100 mls/hr .Q10H PINA Administration Insulin Aspart 0 unit 10/01/19 08:00 10/01/19 13:06 Novolog SUBCUT 8 unit TIDWM PINA Administration Protocol Insulin Glargine 12 unit 10/01/19 18:00 Lantus SUBCUT QPM PINA Isosorbide Mononit rate 30 mg 10/01/19 09:00 10/01/19 09:13 Imdur PO 30 mg BID PINA Administration Levothyroxine Sodi um 50 mcg 10/01/19 09:00 10/01/19 09:13 Synthroid PO 50 mcg DAILY PINA Administration Metoprolol Tartrat e 25 mg 10/01/19 09:00 10/01/19 09:13 Lopressor PO 25 mg BID PINA Administration Nifedipine 30 mg 10/01/19 09:00 10/01/19 09:12 Procardia Xl PO 30 mg DAILY PINA Administration Ondansetron HCl 4 mg 10/01/19 02:01 Zofran PO BID PRN Nausea Ondansetron HCl 4 mg 10/01/19 02:01 10/01/19 02:53 Zofran IVP 4 mg Q8H PRN Administration vomiting, or N/V if npo Polyethylene Glyco l 17 gm 10/01/19 09:00 10/01/19 10:45 Miralax PO Not Given DAILY [facility] Potassium Chloride 20 meq 10/01/19 09:00 10/01/19 09:13 Klor-Con 10 PO 20 meq DAILY PINA Administration Senna/Docusate Sod ium 1 tab 10/01/19 09:00 10/01/19 09:13 Senna-S PO 1 tab BID PINA Administration Sertraline HCl 25 mg 10/01/19 09:00 10/01/19 09:12 Zoloft PO 25 mg DAILY PINA Administration duloxetine [From Cymbalta] Allergy (Verified 09/10/19 06:29) Unknown prochlorperazine [From Compazine] Allergy (Verified 09/10/19 06:29) ALGY-Anaphylaxis sucralfate [From Carafate] Allergy (Verified 09/10/19 06:29) Unknown trazodone Allergy (Verified 09/10/19 06:29) Unknown zaleplon [From Sonata] Allergy (Verified 09/10/19 06:29) Unknown Vitals/I&O/Wt Last Vital Signs Temp 97.7 F 10/01/19 16:00 Pulse 61 10/01/19 16:00 Resp 18 10/01/19 16:00 BP 126/61 10/01/19 16:00 Pulse Ox 98 10/01/19 15:11 10/01/19 10/01/19 10/01/19 06:59 14:59 22:59 Intake Total 1200 / 1200 1780 / 1780 Balance 1200 / 1200 1780 / 1780 Weight last 48 hrs Weight 86.183 kg Physical Exam Const: COMMON NORMALS: no apparent distress and oriented x3 GENERAL APPEARANCE: cooperative and comfortable NUTRITIONAL APPEARANCE: obese morbidly obese ORIENTATION/CONSCIOUSNESS: Yes awake HENMT: COMMON NORMALS: normocephalic, head/scalp atraumatic, hearing grossly normal bilaterally and moist oral mucous membranes HEAD & SCALP: normocephalic and atraumatic Eye: COMMON NORMALS: PERRL, EOMs intact bilaterally and conjunctivae normal CONJUNCTIVA: Yes conjunctivae normal PUPIL: Yes PERRL Neck/C-Spine: COMMON NORMALS: full ROM GENERAL: Yes normal visual inspection and Yes trachea midline Resp: COMMON NORMALS: normal respiratory effort, no retractions, no use of accessory muscles and clear to auscultation bilaterally EFFORT & INSPECTION: Yes able to speak in complete sentences, Yes symmetric chest movement and No tachypneic AUSCULTATION: clear to auscultation bilaterally Cardio: COMMON NORMALS: regular rate, regular rhythm, S1 normal heart sound, S2 normal heart sound and no murmurs RATE: regular rate RHYTHM: regular rhythm HEART SOUNDS: S1 normal and S2 normal GI: COMMON NORMALS: normal to inspection, nondistended, normoactive bowel sounds, soft to palpation and non-tender INSPECTION: Yes central obesity PALPATION: Yes soft Extremity: COMMON NORMALS: normal to inspection, full ROM and no clubbing, cyanosis or edema; negative for no pedal edema Neuro: COMMON NORMALS: oriented x3, moves all extremities, no focal motor deficits, no sensory deficits noted and gait normal Psych: COMMON NORMALS: mental status grossly normal, thought process normal, cooperative, affect normal and speech normal SPEECH: Yes normal speech THOUGHT PROCESS: normal thought process Skin: COMMON NORMALS: no rashes or lesions noted, no jaundice, no petechiae and no mottling GENERAL SKIN EXAM: no rashes or lesions noted Data : 09/30/19 22:11 10/01/19 05:45 Micro: Microbiology 09/30/19 22:25 Blood Culture - Preliminary Blood SPECIMEN COLLECTED 09/30/19 22:11 Blood Culture - Preliminary Blood SPECIMEN COLLECTED A&P Assessment and plan (1) Acute pyelonephritis: -UA strongly indicative of infection as evidenced by presence of leukocyte esterase, pyuria, bacteria -Follow-up urine cultures -blood cx: 06/19 bottles positive for GNRs, repeat set ordered -Evidence of pyelonephritis involving right kidney on imaging -Continue broad-spectrum IV antibiotic coverage with Zosyn, renally dosed -concern for sepsis given fever, altered mental status, hypoxia. Procalcitonin elevated at 7.65, lactic acid 1.4 -No noted leukocytosis -on IVF, continue with caution as has high risk of developing fluid overload Status: Acute (2) Altered mental status: -Altered mental status likely secondary to acute infection as noted above -Reorient as needed -Fall precautions -Patient's baseline mental status is alert and oriented x3 Status: Acute Qualifiers: Altered mental status type: disorientation Qualified Code(s): R41.0 - Disorientation, unspecified (3) Acute kidney injury superimposed on chronic kidney disease: -During last admission was noted to have contrast-induced nephropathy following cath done secondary to ACS -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 a baseline creatinine of approximately 1.6-2 -Had been discharged with a José catheter which was discontinued during her SNF stay -Monitor urine output, bladder scan as needed, may need replacement of José catheter if oliguric -Renal function currently is improved compared to most recent discharge -Continue to monitor renal function, avoid nephrotoxins, renally dose meds; lytes within normal limits Status: Acute (4) Heart failure with preserved ejection fraction: -No acute exacerbation currently -cardiac diet as tolerated -Echo: EF=55%, G2DD, mild pulmonary HTN, mild , mild to moderate MR Status: Acute Qualifiers: Heart failure chronicity: chronic Qualified Code(s): I50.32 - Chronic diastolic (congestive) heart failure Additional A&P Information -Morbid obesity: BMI-38 kg/m2 -IDDM type II; A1c-7.1; Accucheks, ISS, scheduled insulin, hypoglycemia precautions -HTN; VSS: on oral antihypertensive regimen -Hyperlipidemia; on statin; lipid panel noted -Chronic atrial fibrillation, on BB, Eliquis; off heparin drip; intermittently bradycardic, during previous admission was noted to have atrial fibrillation with slow VR -Hypothyroidism; on Levothyroxine -Chronic normocytic anemia; baseline Hg 9-10; iron panel noted; continue to monitor H/H. Has had GI workup done with colonoscopy (11/2014) unremarkable other than diverticuli and 5 mm sessile polyp in sigmoid colon (pathology-benign mucosa with edema and surface hyperplastic change, no malignancy). Likely anemia of chronic disease. Due to worsening anemia received transfusion of 1 unit PRBCs (on 09/09) and IV iron -hx of seronegative RA and OA -Hx of CAD with recent ACS requiring cath with intervention, PCI of RCA and balloon angioplasty of proximal and mid diagonal branch. Post-procedure had contrast-induced nephropathy.Has been on DAPT, Eliquis. -DVT ppx not needed as on Eliquis -Dispo: home with continued in-home services ([facility]); had been d/c to [facility] during last admission -Code status: FULL code Attestations Medical Necessity Statement*: Patient requires hospitalization for continued IV antibiotic treatment secondary to acute pyelonephritis with associated altered mental status. Time Spent in Patient Care: Greater than 35 minutes (>than 50% of time spent in counselling and/or direct pt care on unit). Coding Level of Care Code Acute Construction Project Engineer for [facility] Fwd Exam Comprehensive Diagnoses Acute pyelonephritis N10 Altered mental status R41.0 Altered mental status type: disorientation Acute kidney injury superimposed on chronic kidney disease N17.9; N18.9 Heart failure with preserved ejection fraction I50.32 Heart failure chronicity: chronic
[2019-10-01 16:42] LABS: Glucose Point of Care 179 mg/dL (70-110)
--- NOTE | 2019-10-01 16:58 | PC.PT ---
PT note; patient declined attempted PT evaluation and out of bed today, complaining of excessive fatigue, states agreeable to attempt evaluation in a.m., and will see her then
--- NOTE | 2019-10-01 17:27 | PC.OT ---
OT NOTE: OT EVALUATION ATTEMPTED TWICE TODAY, THIS MORNING THE PATIENT HAD A NORIEGA AND ASKED FOR ME TO COME BACK IN P.M. THIS AFTERNOON THE PATIENT C/O STOMACH ACHE. OT EVALUATION TO BE ATTEMPTED TOMORROW.
--- NOTE | 2019-10-01 17:40 | PC.NURSE ---
Nausea and vomiting Pt is having 2 episodes of nausea and vomiting. Dr at bedside during 1st episode of vomiting. Zofran IVP PRN given. Will await for PRN Bladder scan until pt is tolerating well with abdominal issue.
[2019-10-01] MEDS: gabapentin 100 mg Capsule PO (20:48)
[2019-10-01] MEDS: atorvastatin 40 mg Tablet 80 MG PO (20:48)
[2019-10-01] MEDS: insulin glargine 100 units/1 mL 12 UNIT SUBCUT (20:48)
[2019-10-01 21:39] LABS: Glucose Point of Care 180 mg/dL (70-110)
[2019-10-02] VITALS (13 sets, daily range): BP systolic 102–153; BP diastolic 52–75; PULSE 51–66; RESP 16–18; TEMP 36.6–37.3; O2SAT 89–99
[2019-10-02] MEDS: sodium chloride 0.9% 1,000 ML 100 ML IV ×2 (01:28→12:56)
[2019-10-02] MEDS: piperacillin-tazobactam 3.375 GM in sodium chloride 0.9% (plus) 50 ML IV ×3 (02:33→17:31)
[2019-10-02 06:07] LABS: Basophils % 0.3 %; Eosinophils # 0.1 10^3/uL (0.0-0.8); Eosinophils % 1.4 %; Hematocrit 22.3 % (37.0-47.0); Hemoglobin 6.8 g/dL (11.5-15.3); Lymphocytes # 0.7 10^3/uL (0.8-4.8); Lymphocytes % 9.8 %; Mean Corpuscular HGB Conc 30.5 g/dL (30.0-36.0); Mean Corpuscular Hemoglobin 29.7 pg (28.0-34.0); Mean Corpuscular Volume 97.4 fL (81-99); Mean Platelet Volume 12.2 fL (7.4-10.4); Monocytes # 0.9 10^3/uL (0.2-0.9); Monocytes % 14.1 %; Neutrophils # 4.9 10^3/uL (1.8-7.7); Neutrophils % 73.5 %; Nucleated Red Blood Cells % 0 %; Platelet Count 103 10^3/cmm (130-400); Red Blood Count 2.29 10^6/uL (4.1-5.3); Red Cell Distribution Width 18.6 % (12.1-15.1); White Blood Count 6.7 10^3/uL (4.0-10.0)
[2019-10-02 06:26] LABS: Alanine Aminotransferase 13 U/L (0-33); Albumin Level 2.7 g/dL (3.5-5.2); Alkaline Phosphatase 79 IU/L (35-105); Anion Gap 17.2 (5-19); Aspartate Amino Transferase 18 U/L (0-32); Blood Urea Nitrogen 30 mg/dL (8-23); Calcium 8.2 mg/dL (8.5-10.5); Carbon Dioxide 19 mmol/L (22-29); Chloride 100 mmol/L (98-107); Globulin 3.4 g/dL (1.3-4.6); Glomerular Filtration Rate 23.4 mL/min (90-130); Glucose 132 mg/dL (65-115); Magnesium 1.7 mg/dL (1.7-2.3); Osmolality Calculated 273 mOsm/kg (285-295); Phosphorus 3.5 mg/dL (2.5-4.5); Potassium 4.2 mmol/L (3.5-5.1); Sodium 132 mmol/L (136-145); Total Bilirubin 0.7 mg/dL (0.15-1.2); Total Protein 6.1 g/dL (6.6-8.7)
[2019-10-02 06:33] LABS: Glucose Point of Care 128 mg/dL (70-110)
[2019-10-02 07:15] LABS: Slide Review Slide Review Perform
[2019-10-02] MEDS: levothyroxine 50 mcg Tablet PO (10:19)
[2019-10-02] MEDS: clopidogrel 75 mg Tablet PO (10:20)
[2019-10-02] MEDS: isosorbide mononitrate ER 30 mg Tablet PO ×2 (10:20→17:17)
[2019-10-02] MEDS: apixaban 5 mg Tablet 2.5 MG PO ×2 (10:20→17:17)
[2019-10-02] MEDS: sennosides-docusate Tablet 1 TAB PO ×2 (10:20→17:17)
[2019-10-02] MEDS: NIFEdipine ER (24 hr) 30 mg Tablet PO (10:20)
[2019-10-02] MEDS: sertraline 50 mg Tablet 25 MG PO (10:21)
[2019-10-02] MEDS: metoprolol tartrate 50 mg Tablet 25 MG PO ×2 (10:21→17:17)
[2019-10-02 11:04] LABS: Glucose Point of Care 240 mg/dL (70-110)
[2019-10-02] MEDS: ipratropium-albuterol 3 mL Neb INHALATION (11:32)
--- NOTE | 2019-10-02 14:24 | PC.CHAP ---
Pastoral Care Encounter/Spiritual Assessment Type of Contact [] Declined molder closed molds visit [] Patient/Family/Request visit [] Outpatient visit [] Follow-up visit [] Physician referral [] Code/Alert [X] Routine visit [] Staff referral [] Actively dying [] Patient sleeping [] Family support [] [] Out of room [] Palliative care [] [] Receiving care in room [] Pre-surgical visit [] Trauma [] Long length of stay [] ICU visit [] Other: Relational/Emotional Strength [] Patient feels connected with others/family/visitors/staff [] Distress [] Loneliness/isolation [] Abandonment Spirituality of Patient [] Person of Shira [] Attends Anabaptism of their Shira [] Believes in Prayer [] Reads Bible or Protestant materials [] There are Spiritual issues to be addressed 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 Interventions [] Prayer [] Active listening [] Non-anxious presence [] Spiritual/emotional support [] Crisis/trauma care [] Spiritual counseling [] Bereavement support [] Provided bereavement packet [] Provided Bible/devotional materials [] Provided toy/stuffed animal, coloring book to patient or family member [] Provided Communion [] Anointing/[place] [] Salvation [] Completed spiritual assessment [] Other: Impact on Illness or Injury [] Angry [] Fearful [] Anxious [] Often cries [] Exhaustion [] Unable to work [] Unable to attend restorationism [] Unable to walk/stand [] Unable to read [] Unable to drive [] Unable to eat/drink [] Unable to sleep [] Unable to be with family [] Patient intubated [] Other: Summary Time spent with patient
--- NOTE | 2019-10-02 16:41 | PM.PN ---
Subjective Subjective: Interval history: Patient seen and examined, reports feeling better today, due to risk for developing fluid overload will discontinue IV fluid hydration. AM labs reviewed including noted drop in hemoglobin from 8-6.8. Will repeat this to confirm in addition to type and screen in case of need for transfusion of blood products. Also noted worsening renal function. Decreased urine output and has had noted urinary retention in the past. Bladder scan PRN and if continued retention will require José catheter placement. Poor appetite. Vital signs stable, noted Tmax-100.1 F. Has been afebrile since. Medications: Reviewed: Yes Medication Review Details: Active Medications Generic Name Dose Route Start Last Admin Trade Name Freq PRN Reason Stop Dose Admin Acetaminophen 325 mg 10/01/19 02:01 10/01/19 09:11 Tylenol PO 325 mg QID PRN Administration PAIN Albuterol/Ipratrop ium 3 ml 10/01/19 02:01 10/02/19 11:32 Duoneb INHALATION 3 ml Q4H.RESPIRATORY P RN Administration Shortness Of Lexi th Apixaban 2.5 mg 10/01/19 09:00 10/02/19 10:20 Eliquis PO 2.5 mg BID PINA Administration Atorvastatin Calci um 80 mg 10/01/19 21:00 10/01/19 20:48 Lipitor PO 80 mg BEDTIME PINA Administration Bisacodyl 10 mg 10/01/19 02:01 Bisac-Evac [place] DAILY PRN CONSTIPATION Clopidogrel Bisulf ate 75 mg 10/01/19 09:00 10/02/19 10:20 Plavix PO 75 mg DAILY PINA Administration Dextrose 25 ml 10/01/19 02:01 D50w IVP ONCE PRN hypoglycemia prot ocol Protocol Dextrose 50 ml 10/01/19 02:01 D50w IVP PRN PRN hypoglycemia prot ocol Protocol Fentanyl 1 patch 10/01/19 09:00 10/01/19 09:14 Duragesic 50 Mcg Patch TRANSDERMA 1 patch Q72H PINA Administration Gabapentin 100 mg 10/01/19 21:00 10/01/19 20:48 Neurontin PO 100 mg BEDTIME PINA Administration Glucagon 1 mg 10/01/19 02:01 Glucagen IM ONCE PRN Adult Acute Hypog lycemia Prot. Protocol Dextrose 500 mls @ 100 mls /hr 10/01/19 02:01 D5w IV ONCE PRN Adult Acute Hypog lycemia Prot Protocol Piperacillin Sod/T azobactam 50 mls @ 12.5 mls /hr 10/01/19 02:30 10/02/19 11:46 Sod 3.375 gm/ So dium Chloride IV 12.5 mls/hr Q8H PINA Administration Protocol As Directed Insulin Aspart 0 unit 10/01/19 08:00 10/02/19 11:46 Novolog SUBCUT 6 unit TIDWM PINA Administration Protocol Insulin Glargine 12 unit 10/01/19 21:00 10/01/19 20:48 Lantus SUBCUT 12 unit 2100 PINA Administration Isosorbide Mononit rate 30 mg 10/01/19 09:00 10/02/19 10:20 Imdur PO 30 mg BID PINA Administration Levothyroxine Sodi um 50 mcg 10/01/19 09:00 10/02/19 10:19 Synthroid PO 50 mcg DAILY PINA Administration Metoprolol Tartrat e 25 mg 10/01/19 09:00 10/02/19 10:21 Lopressor PO 25 mg BID PINA Administration Nifedipine 30 mg 10/01/19 09:00 10/02/19 10:20 Procardia Xl PO 30 mg DAILY PINA Administration Ondansetron HCl 4 mg 10/01/19 02:01 10/01/19 17:01 Zofran IVP 4 mg Q8H PRN Administration vomiting, or N/V if npo Polyethylene Glyco l 17 gm 10/01/19 09:00 10/02/19 10:22 Miralax PO Not Given DAILY PINA Potassium Chloride 20 meq 10/01/19 09:00 10/02/19 10:19 Klor-Con 10 PO 20 meq DAILY PINA Administration Senna/Docusate Sod ium 1 tab 10/01/19 09:00 10/02/19 10:20 Senna-S PO 1 tab BID PINA Administration duloxetine [From Cymbalta] Allergy (Verified 09/10/19 06:29) Unknown prochlorperazine [From Compazine] Allergy (Verified 09/10/19 06:29) ALGY-Anaphylaxis sucralfate [From Carafate] Allergy (Verified 09/10/19 06:29) Unknown trazodone Allergy (Verified 09/10/19 06:29) Unknown zaleplon [From Sonata] Allergy (Verified 09/10/19 06:29) Unknown Vitals/I&O/Wt Last Vital Signs Temp 98.2 F 10/02/19 15:56 Pulse 55 L 10/02/19 16:31 Resp 16 10/02/19 16:31 BP 118/64 10/02/19 15:56 Pulse Ox 96 10/02/19 16:31 10/02/19 10/02/19 10/02/19 06:59 14:59 22:59 Intake Total 1050 / 2930 1462 / 1462 Output Total 100 / 100 Balance 1050 / 2930 1362 / 1362 Weight last 48 hrs Weight 86.183 kg Physical Exam Const: COMMON NORMALS: no apparent distress and oriented x3 GENERAL APPEARANCE: cooperative and comfortable NUTRITIONAL APPEARANCE: obese morbidly obese ORIENTATION/CONSCIOUSNESS: Yes awake OTHER: -pallor HENMT: COMMON NORMALS: normocephalic, head/scalp atraumatic, hearing grossly normal bilaterally and moist oral mucous membranes HEAD & SCALP: normocephalic and atraumatic Eye: COMMON NORMALS: PERRL, EOMs intact bilaterally and conjunctivae normal CONJUNCTIVA: Yes conjunctivae normal PUPIL: Yes PERRL Neck/C-Spine: COMMON NORMALS: full ROM GENERAL: Yes normal visual inspection and Yes trachea midline Resp: COMMON NORMALS: normal respiratory effort, no retractions, no use of accessory muscles and clear to auscultation bilaterally EFFORT & INSPECTION: Yes able to speak in complete sentences, Yes symmetric chest movement and No tachypneic AUSCULTATION: clear to auscultation bilaterally Cardio: COMMON NORMALS: regular rate, regular rhythm, S1 normal heart sound and S2 normal heart sound RATE: regular rate RHYTHM: regular rhythm HEART SOUNDS: S1 normal, S2 normal and murmur systolic GI: COMMON NORMALS: normal to inspection, nondistended, normoactive bowel sounds, soft to palpation and non-tender INSPECTION: Yes central obesity and Yes visible herniation PALPATION: Yes soft Extremity: COMMON NORMALS: normal to inspection, full ROM, no clubbing, cyanosis or edema and no pedal edema Neuro: COMMON NORMALS: oriented x3, moves all extremities, no focal motor deficits and no sensory deficits noted Psych: COMMON NORMALS: mental status grossly normal, thought process normal, cooperative, affect normal and speech normal SPEECH: Yes normal speech THOUGHT PROCESS: normal thought process Skin: COMMON NORMALS: no rashes or lesions noted, no jaundice, no petechiae and no mottling GENERAL SKIN EXAM: no rashes or lesions noted Data : 10/02/19 05:54 10/02/19 05:54 Micro: Microbiology 09/30/19 22:18 Urine Culture - Preliminary Urine Catheterized Gram Negative Rods 09/30/19 22:11 Blood Culture - Preliminary Blood NEGATIVE TO DATE 10/01/19 19:55 Blood Culture - Preliminary Blood SPECIMEN COLLECTED 10/01/19 19:44 Blood Culture - Preliminary Blood SPECIMEN COLLECTED 09/30/19 22:25 Blood Culture - Preliminary Blood Gram Negative Rods A&P Assessment and plan (1) Acute pyelonephritis: -UA strongly indicative of infection as evidenced by presence of leukocyte esterase, pyuria, bacteria -urine cx: GNRs; pending ID & sensitivity -blood cx: 06/19 bottles positive for GNRs, repeat set ordered -Evidence of pyelonephritis involving right kidney on imaging -Continue broad-spectrum IV antibiotic coverage with Zosyn, renally dosed -concern for sepsis given fever, altered mental status, hypoxia. 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 a baseline creatinine of approximately 1.6-2 -Had been discharged with a José catheter which was discontinued during her SNF stay -continue to monitor urine output, bladder scan as needed, may need replacement of José catheter if oliguric -Renal function currently is improved compared to most recent discharge -Continue to monitor renal function, avoid nephrotoxins, renally dose meds; lytes within normal limits Status: Acute (3) Altered mental status: -Altered mental status likely secondary to acute infection as noted above -Reorient as needed -Fall precautions -Patient's baseline mental status is alert and oriented x3 Status: Resolved Qualifiers: Altered mental status type: disorientation Qualified Code(s): R41.0 - Disorientation, unspecified (4) Heart failure with preserved ejection fraction: -No acute exacerbation currently -cardiac diet as tolerated -Echo: EF=55%, G2DD, mild pulmonary HTN, mild , mild to moderate MR Status: Acute Qualifiers: Heart failure chronicity: chronic Qualified Code(s): I50.32 - Chronic diastolic (congestive) heart failure (5) Normocytic anemia: -Chronic normocytic anemia -baseline Hg 9-10; iron panel done during last admission -continue to monitor H/H -Has had GI workup done with colonoscopy (11/2014) unremarkable other than diverticuli and 5 mm sessile polyp in sigmoid colon (pathology-benign mucosa with edema and surface hyperplastic change, no malignancy). May need repeat w/u if continued anemia -Likely anemia of chronic disease -Due to worsening anemia received transfusion of 1 unit PRBCs (on 09/09) and IV iron. -noted drop today to 7.0, will transfuse 2 units PRBCs; may need dose of lasix in between to prevent fluid overload Status: Acute Additional A&P Information -Morbid obesity: BMI-38 kg/m2 -IDDM type II; A1c-7.1; Accucheks, ISS, scheduled insulin, hypoglycemia precautions -HTN; VSS: on oral antihypertensive regimen -Hyperlipidemia; on statin; lipid panel noted -Chronic atrial fibrillation, on BB, Eliquis; off heparin drip; intermittently bradycardic, during previous admission was noted to have atrial fibrillation with slow VR -Hypothyroidism; on Levothyroxine -hx of seronegative RA and OA -Hx of CAD with recent ACS requiring cath with intervention, PCI of RCA and balloon angioplasty of proximal and mid diagonal branch. Post-procedure had contrast-induced nephropathy.Has been on DAPT, Eliquis. -DVT ppx not needed as on Eliquis. If continued anemia, will need to hold this -Dispo: home with continued in-home services ([facility]); had been d/c to [facility] during last admission -Code status: FULL code Attestations Medical Necessity Statement*: Patient requires hospitalization for continued IV antibiotic treatment for pyelonephritis, pending urine culture results as well as noted acute worsening anemia requiring transfusion of blood products. Time Spent in Patient Care: 16 - 35 minutes (>than 50% of time spent in counselling and/or direct pt care on unit). Coding Level of Care Code Acute Floor Refinisher for g Fwd Diagnoses Acute pyelonephritis N10 Acute kidney injury superimposed on chronic kidney disease N17.9; N18.9 Altered mental status R41.0 Altered mental status type: disorientation Heart failure with preserved ejection fraction I50.32 Heart failure chronicity: chronic Normocytic anemia D64.9
[2019-10-02 16:50] LABS: Hematocrit 22.9 % (37.0-47.0)
[2019-10-02 17:10] LABS: Glucose Point of Care 212 mg/dL (70-110)
[2019-10-02] MEDS: FUROsemide 10 mg/mL SDV 4mL 40 MG IVP (18:58)
[2019-10-02] MEDS: sodium chloride 0.9% 100 ML 20 ML (20:25)
[2019-10-02] MEDS: atorvastatin 40 mg Tablet 80 MG PO (21:02)
[2019-10-02] MEDS: gabapentin 100 mg Capsule PO (21:02)
[2019-10-02 21:19] LABS: Glucose Point of Care 192 mg/dL (70-110)
[2019-10-02] MEDS: insulin glargine 100 units/1 mL 12 UNIT SUBCUT (21:49)
[2019-10-03] VITALS (16 sets, daily range): BP systolic 101–137; BP diastolic 49–72; PULSE 51–72; RESP 16–18; TEMP 36.5–37.1; O2SAT 93–98
[2019-10-03] MEDS: piperacillin-tazobactam 3.375 GM in sodium chloride 0.9% (plus) 50 ML IV (05:21)
[2019-10-03 05:52] LABS: Basophils # 0.1 10^3/uL (0.0-0.1); Basophils % 0.7 %; Eosinophils # 0.2 10^3/uL (0.0-0.8); Eosinophils % 2.3 %; Hematocrit 29.1 % (37.0-47.0); Lymphocytes # 0.8 10^3/uL (0.8-4.8); Lymphocytes % 10.3 %; Mean Corpuscular HGB Conc 30.9 g/dL (30.0-36.0); Mean Corpuscular Hemoglobin 28.9 pg (28.0-34.0); Mean Corpuscular Volume 93.6 fL (81-99); Mean Platelet Volume 10.6 fL (7.4-10.4); Monocytes # 1.1 10^3/uL (0.2-0.9); Monocytes % 15.3 %; Neutrophils # 5.2 10^3/uL (1.8-7.7); Neutrophils % 70.9 %; Nucleated Red Blood Cells % 0 %; Platelet Count 86 10^3/cmm (130-400); Red Blood Count 3.11 10^6/uL (4.1-5.3); Red Cell Distribution Width 17.1 % (12.1-15.1); White Blood Count 7.4 10^3/uL (4.0-10.0)
[2019-10-03 06:14] LABS: Alanine Aminotransferase 19 U/L (0-33); Albumin Level 2.9 g/dL (3.5-5.2); Alkaline Phosphatase 123 IU/L (35-105); Anion Gap 17.2 (5-19); Aspartate Amino Transferase 23 U/L (0-32); Blood Urea Nitrogen 31 mg/dL (8-23); Calcium 8.5 mg/dL (8.5-10.5); Carbon Dioxide 18 mmol/L (22-29); Chloride 100 mmol/L (98-107); Creatinine Clr Calc Pharmacy 32.8355; Globulin 3.7 g/dL (1.3-4.6); Glomerular Filtration Rate 22.1 mL/min (90-130); Glucose 147 mg/dL (65-115); Magnesium 1.7 mg/dL (1.7-2.3); Osmolality Calculated 272 mOsm/kg (285-295); Phosphorus 3.9 mg/dL (2.5-4.5); Potassium 4.2 mmol/L (3.5-5.1); Sodium 131 mmol/L (136-145); Total Bilirubin 2.6 mg/dL (0.15-1.2); Total Protein 6.6 g/dL (6.6-8.7)
[2019-10-03 06:49] LABS: Glucose Point of Care 142 mg/dL (70-110)
[2019-10-03] MEDS: isosorbide mononitrate ER 30 mg Tablet PO ×2 (08:22→17:05)
[2019-10-03] MEDS: NIFEdipine ER (24 hr) 30 mg Tablet PO (08:23)
[2019-10-03] MEDS: sennosides-docusate Tablet 1 TAB PO ×2 (08:23→17:05)
[2019-10-03] MEDS: clopidogrel 75 mg Tablet PO (08:23)
[2019-10-03] MEDS: metoprolol tartrate 50 mg Tablet 25 MG PO ×2 (08:23→17:06)
[2019-10-03] MEDS: levothyroxine 50 mcg Tablet PO (08:23)
[2019-10-03] MEDS: apixaban 5 mg Tablet 2.5 MG PO ×2 (08:23→17:06)
[2019-10-03 08:32] LABS: Glucose Point of Care 147 mg/dL (70-110)
--- NOTE | 2019-10-03 10:46 | PM.PN ---
Subjective Subjective: Interval history: Overnight received 2 units PRBCs with AM hemoglobin up to 9.0. Received dose of Lasix in between the first and second unit of blood. Noted slight increase in creatinine from 2.1->2.2 today. Had 300 mL urine output overnight. Blood and urine cultures pending, so far growing gram-negative rods. Hemodynamically stable, afebrile. Resting comfortably in bed, reports some mild nausea though oral intake and appetite have been better today, continue to encourage out of bed activity. Medications: Reviewed: Yes Medication Review Details: Active Medications Generic Name Dose Route Start Last Admin Trade Name Freq PRN Reason Stop Dose Admin Acetaminophen 325 mg 10/01/19 02:01 10/01/19 09:11 Tylenol PO 325 mg QID PRN Administration PAIN Albuterol/Ipratrop ium 3 ml 10/01/19 02:01 10/02/19 11:32 Duoneb INHALATION 3 ml Q4H.RESPIRATORY P RN Administration Shortness Of Lexi th Apixaban 2.5 mg 10/01/19 09:00 10/03/19 08:23 Eliquis PO 2.5 mg BID PINA Administration Atorvastatin Calci um 80 mg 10/01/19 21:00 10/02/19 21:02 Lipitor PO 80 mg BEDTIME PINA Administration Bisacodyl 10 mg 10/01/19 02:01 Bisac-Evac [place] DAILY PRN CONSTIPATION Clopidogrel Bisulf ate 75 mg 10/01/19 09:00 10/03/19 08:23 Plavix PO 75 mg DAILY PINA Administration Dextrose 25 ml 10/01/19 02:01 D50w IVP ONCE PRN hypoglycemia prot ocol Protocol Dextrose 50 ml 10/01/19 02:01 D50w IVP PRN PRN hypoglycemia prot ocol Protocol Fentanyl 1 patch 10/01/19 09:00 10/01/19 09:14 Duragesic 50 Mcg Patch TRANSDERMA 1 patch Q72H PINA Administration Gabapentin 100 mg 10/01/19 21:00 10/02/19 21:02 Neurontin PO 100 mg BEDTIME PINA Administration Glucagon 1 mg 10/01/19 02:01 Glucagen IM ONCE PRN Adult Acute Hypog lycemia Prot. Protocol Dextrose 500 mls @ 100 mls /hr 10/01/19 02:01 D5w IV ONCE PRN Adult Acute Hypog lycemia Prot Protocol Piperacillin Sod/T azobactam 50 mls @ 12.5 mls /hr 10/01/19 02:30 10/03/19 05:21 Sod 3.375 gm/ So dium Chloride IV 12.5 mls/hr Q8H PINA Administration Protocol As Directed Insulin Aspart 0 unit 10/01/19 08:00 10/03/19 08:23 Novolog SUBCUT 2 unit TIDWM PINA Administration Protocol Insulin Glargine 12 unit 10/01/19 21:00 10/02/19 21:49 Lantus SUBCUT 12 unit 2100 PINA Administration Isosorbide Mononit rate 30 mg 10/01/19 09:00 10/03/19 08:22 Imdur PO 30 mg BID PINA Administration Levothyroxine Sodi um 50 mcg 10/01/19 09:00 10/03/19 08:23 Synthroid PO 50 mcg DAILY PINA Administration Metoprolol Tartrat e 25 mg 10/01/19 09:00 10/03/19 08:23 Lopressor PO 25 mg BID PINA Administration Nifedipine 30 mg 10/01/19 09:00 10/03/19 08:23 Procardia Xl PO 30 mg DAILY PINA Administration Ondansetron HCl 4 mg 10/01/19 02:01 10/01/19 17:01 Zofran IVP 4 mg Q8H PRN Administration vomiting, or N/V if npo Polyethylene Glyco l 17 gm 10/01/19 09:00 10/03/19 08:24 Miralax PO Not Given DAILY [facility] Potassium Chloride 20 meq 10/01/19 09:00 10/03/19 08:22 Klor-Con 10 PO 20 meq DAILY PINA Administration Senna/Docusate Sod ium 1 tab 10/01/19 09:00 10/03/19 08:23 Senna-S PO 1 tab BID PINA Administration duloxetine [From Cymbalta] Allergy (Verified 09/10/19 06:29) Unknown prochlorperazine [From Compazine] Allergy (Verified 09/10/19 06:29) ALGY-Anaphylaxis sucralfate [From Carafate] Allergy (Verified 09/10/19 06:29) Unknown trazodone Allergy (Verified 09/10/19 06:29) Unknown zaleplon [From Sonata] Allergy (Verified 09/10/19 06:29) Unknown Vitals/I&O/Wt Last Vital Signs Temp 98.4 F 10/03/19 08:00 Pulse 57 L 10/03/19 08:27 Resp 18 10/03/19 08:27 BP 118/55 10/03/19 08:00 Pulse Ox 98 10/03/19 08:27 10/02/19 10/03/19 10/03/19 22:59 06:59 14:59 Intake Total 902 / 2364 700 / 3064 240 / 240 Output Total 300 / 400 Balance 602 / 1964 700 / 2664 240 / 240 Physical Exam Const: COMMON NORMALS: no apparent distress and oriented x3 GENERAL APPEARANCE: cooperative and comfortable NUTRITIONAL APPEARANCE: obese morbidly obese ORIENTATION/CONSCIOUSNESS: Yes awake OTHER: -pallor HENMT: COMMON NORMALS: normocephalic, head/scalp atraumatic, hearing grossly normal bilaterally and moist oral mucous membranes HEAD & SCALP: normocephalic and atraumatic Eye: COMMON NORMALS: PERRL, EOMs intact bilaterally and conjunctivae normal CONJUNCTIVA: Yes conjunctivae normal PUPIL: Yes PERRL Neck/C-Spine: COMMON NORMALS: full ROM GENERAL: Yes normal visual inspection and Yes trachea midline Resp: COMMON NORMALS: normal respiratory effort, no retractions, no use of accessory muscles and clear to auscultation bilaterally EFFORT & INSPECTION: Yes able to speak in complete sentences, Yes symmetric chest movement and No tachypneic AUSCULTATION: clear to auscultation bilaterally Cardio: COMMON NORMALS: regular rate, regular rhythm, S1 normal heart sound and S2 normal heart sound RATE: regular rate RHYTHM: regular rhythm HEART SOUNDS: S1 normal, S2 normal and murmur systolic GI: COMMON NORMALS: normal to inspection, nondistended, normoactive bowel sounds, soft to palpation and non-tender INSPECTION: Yes central obesity and Yes visible herniation PALPATION: Yes soft Extremity: COMMON NORMALS: normal to inspection, full ROM, no clubbing, cyanosis or edema and no pedal edema Neuro: COMMON NORMALS: oriented x3, moves all extremities, no focal motor deficits and no sensory deficits noted Psych: COMMON NORMALS: mental status grossly normal, thought process normal, cooperative, affect normal and speech normal SPEECH: Yes normal speech THOUGHT PROCESS: normal thought process Skin: COMMON NORMALS: no rashes or lesions noted, no jaundice, no petechiae and no mottling GENERAL SKIN EXAM: no rashes or lesions noted Data : 10/03/19 05:38 10/03/19 05:38 Micro: Microbiology 10/01/19 19:55 Blood Culture - Preliminary Blood NEGATIVE TO DATE 10/01/19 19:44 Blood Culture - Preliminary Blood NEGATIVE TO DATE 09/30/19 22:18 Urine Culture - Preliminary Urine Catheterized Gram Negative Rods A&P Assessment and plan (1) Acute pyelonephritis: -UA strongly indicative of infection as evidenced by presence of leukocyte esterase, pyuria, bacteria -urine cx: GNRs; pending ID & sensitivity -blood cx: 06/19 bottles positive for GNRs, repeat set prelim negative -Evidence of pyelonephritis involving right kidney on imaging -Continue broad-spectrum IV antibiotic coverage with Zosyn, renally dosed -concern for sepsis given fever, altered mental status, hypoxia. 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 -Had been discharged with a José catheter which was discontinued during her SNF stay -continue to monitor urine output, bladder scan as needed, may need replacement of José catheter if oliguric -Renal function currently is improved compared to most recent discharge -Continue to monitor renal function, avoid nephrotoxins, renally dose meds; lytes within normal limits Status: Acute (3) Altered mental status: -Altered mental status likely secondary to acute infection as noted above -Reorient as needed -Fall precautions -Patient's baseline mental status is alert and oriented x 3 Status: Resolved Qualifiers: Altered mental status type: disorientation Qualified Code(s): R41.0 - Disorientation, unspecified (4) Heart failure with preserved ejection fraction: -No acute exacerbation currently -cardiac diet as tolerated -Echo: EF=55%, G2DD, mild pulmonary HTN, mild , mild to moderate MR Status: Acute Qualifiers: Heart failure chronicity: chronic Qualified Code(s): I50.32 - Chronic diastolic (congestive) heart failure (5) Normocytic anemia: -Chronic normocytic anemia -baseline Hg 9-10; iron panel done during last admission -continue to monitor H/H -Has had GI workup done with colonoscopy (11/2014) unremarkable other than diverticuli and 5 mm sessile polyp in sigmoid colon (pathology-benign mucosa with edema and surface hyperplastic change, no malignancy). May need repeat w/u if continued anemia -Likely anemia of chronic disease -Due to worsening anemia received transfusion of 1 unit PRBCs (on 09/09) and IV iron. -noted drop to 7.0, s/p transfusion of 2 units PRBCs; got dose of lasix in between to prevent fluid overload. Hg up to 9.0 Status: Acute Additional A&P Information -Morbid obesity: BMI-38 kg/m2 -IDDM type II; A1c-7.1; Accucheks, ISS, scheduled insulin, hypoglycemia precautions -HTN; VSS: on oral antihypertensive regimen -Hyperlipidemia; on statin; lipid panel noted -Chronic atrial fibrillation, on BB, Eliquis; off heparin drip; intermittently bradycardic, during previous admission was noted to have atrial fibrillation with slow VR -Hypothyroidism; on Levothyroxine -hx of seronegative RA and OA -Hx of CAD with recent ACS requiring cath with intervention, PCI of RCA and balloon angioplasty of proximal and mid diagonal branch. Post-procedure had contrast-induced nephropathy. Has been on DAPT, Eliquis. -DVT ppx not needed as on Eliquis. If continued anemia, will need to hold this -Dispo: home with continued in-home services ([facility]); had been d/c to [facility] during last admission -Code status: FULL code Attestations Medical Necessity Statement*: Patient requires hospitalization for continued IV antibiotic therapy pending urine and blood culture results. Time Spent in Patient Care: 16 - 35 minutes (>than 50% of time spent in counselling and/or direct pt care on unit). Coding Level of Care Code Acute Secondary Market Manager for Yane Fwd Exam Comprehensive Diagnoses Acute pyelonephritis N10 Acute kidney injury superimposed on chronic kidney disease N17.9; N18.9 Altered mental status R41.0 Altered mental status type: disorientation Heart failure with preserved ejection fraction I50.32 Heart failure chronicity: chronic Normocytic anemia D64.9
[2019-10-03 10:56] LABS: Glucose Point of Care 279 mg/dL (70-110)
[2019-10-03 16:46] LABS: Glucose Point of Care 233 mg/dL (70-110)
[2019-10-03] MEDS: gabapentin 100 mg Capsule PO (20:18)
[2019-10-03] MEDS: atorvastatin 40 mg Tablet 80 MG PO (20:18)
[2019-10-03] MEDS: insulin glargine 100 units/1 mL 12 UNIT SUBCUT (20:19)
[2019-10-03 21:16] LABS: Glucose Point of Care 229 mg/dL (70-110)
[2019-10-04] VITALS (8 sets, daily range): BP systolic 110–153; BP diastolic 51–97; PULSE 51–73; RESP 18–20; TEMP 36.5–37; O2SAT 91–99
[2019-10-04 05:39] LABS: Basophils % 0.5 %; Eosinophils # 0.2 10^3/uL (0.0-0.8); Eosinophils % 2.6 %; Hematocrit 28.7 % (37.0-47.0); Hemoglobin 9.1 g/dL (11.5-15.3); Lymphocytes # 0.9 10^3/uL (0.8-4.8); Lymphocytes % 12.3 %; Mean Corpuscular HGB Conc 31.7 g/dL (30.0-36.0); Mean Corpuscular Hemoglobin 29.4 pg (28.0-34.0); Mean Corpuscular Volume 92.6 fL (81-99); Mean Platelet Volume 11.8 fL (7.4-10.4); Monocytes # 0.9 10^3/uL (0.2-0.9); Monocytes % 12.1 %; Neutrophils # 5.2 10^3/uL (1.8-7.7); Neutrophils % 71.4 %; Nucleated Red Blood Cells % 0 %; Platelet Count 100 10^3/cmm (130-400); Red Cell Distribution Width 17.9 % (12.1-15.1); White Blood Count 7.3 10^3/uL (4.0-10.0)
[2019-10-04 05:55] LABS: Anion Gap 18.2 (5-19); Blood Urea Nitrogen 32 mg/dL (8-23); Calcium 8.5 mg/dL (8.5-10.5); Carbon Dioxide 18 mmol/L (22-29); Chloride 102 mmol/L (98-107); Creatinine Clr Calc Pharmacy 32.8355; Glomerular Filtration Rate 22.1 mL/min (90-130); Glucose 144 mg/dL (65-115); Osmolality Calculated 278 mOsm/kg (285-295); Potassium 4.2 mmol/L (3.5-5.1); Sodium 134 mmol/L (136-145)
[2019-10-04 06:35] LABS: Glucose Point of Care 139 mg/dL (70-110)
--- NOTE | 2019-10-04 09:15 | PC.SOCIAL ---
*IMM* Patient received the important message from medicare. Original is in the chart, copy gave to the patient.
[2019-10-04] MEDS: fentaNYL 50 mcg Patch 1 PATCH TRANSDERMA (10:08)
[2019-10-04] MEDS: levothyroxine 50 mcg Tablet PO (10:09)
[2019-10-04] MEDS: metoprolol tartrate 50 mg Tablet 25 MG PO ×2 (10:10→17:26)
[2019-10-04] MEDS: clopidogrel 75 mg Tablet PO (10:10)
[2019-10-04] MEDS: polyethylene glycol 3350 Pkt 17 gm PO (10:10)
[2019-10-04] MEDS: NIFEdipine ER (24 hr) 30 mg Tablet PO (10:10)
[2019-10-04] MEDS: apixaban 5 mg Tablet 2.5 MG PO ×2 (10:11→17:27)
[2019-10-04] MEDS: isosorbide mononitrate ER 30 mg Tablet PO ×2 (10:11→17:27)
[2019-10-04 10:43] LABS: Glucose Point of Care 244 mg/dL (70-110)
--- NOTE | 2019-10-04 13:01 | P.PN_ITS ---
Subjective Subjective: Interval history: Patient seen and examined, sitting in chair by bedside, looks better and reports feeling well today. Appetite seems to have improved as well. Pending PICC line placement. Discussed need for continued IV antibiotic treatment secondary to ESBL E. coli and she is apprehensive about going home with this as she lives alone. She would like to go to SNF the duration of the treatment, and prefers returning to [facility]. Hemoglobin remained stable at 9.1, creatinine is still 2.2. Medications: Reviewed: Yes Medication Review Details: Active Medications Generic Name Dose Route Start Last Admin Trade Name Freq PRN Reason Stop Dose Admin Acetaminophen 325 mg 10/01/19 02:01 10/01/19 09:11 Tylenol PO 325 mg QID PRN Administration PAIN Albuterol/Ipratrop ium 3 ml 10/01/19 02:01 10/02/19 11:32 Duoneb INHALATION 3 ml Q4H.RESPIRATORY P RN Administration Shortness Of Lexi th Apixaban 2.5 mg 10/01/19 09:00 10/04/19 10:11 Eliquis PO 2.5 mg BID PINA Administration Atorvastatin Calci um 80 mg 10/01/19 21:00 10/03/19 20:18 Lipitor PO 80 mg BEDTIME PINA Administration Bisacodyl 10 mg 10/01/19 02:01 Bisac-Evac OK DAILY PRN CONSTIPATION Clopidogrel Bisulf ate 75 mg 10/01/19 09:00 10/04/19 10:10 Plavix PO 75 mg DAILY PINA Administration Dextrose 25 ml 10/01/19 02:01 D50w IVP ONCE PRN hypoglycemia prot ocol Protocol Dextrose 50 ml 10/01/19 02:01 D50w IVP PRN PRN hypoglycemia prot ocol Protocol Fentanyl 1 patch 10/01/19 09:00 10/04/19 10:08 Duragesic 50 Mcg Patch TRANSDERMA 1 patch Q72H PINA Administration Gabapentin 100 mg 10/01/19 21:00 10/03/19 20:18 Neurontin PO 100 mg BEDTIME PINA Administration Glucagon 1 mg 10/01/19 02:01 Glucagen IM ONCE PRN Adult Acute Hypog lycemia Prot. Protocol Dextrose 500 mls @ 100 mls /hr 10/01/19 02:01 D5w IV ONCE PRN Adult Acute Hypog lycemia Prot Protocol Imipenem/Cilastati n Sodium 500 100 mls @ 200 mls /hr 10/03/19 14:00 10/04/19 10:11 mg/ Sodium Chlor tomas IV Infused Q8H PINA Infusion Protocol Insulin Aspart 0 unit 10/01/19 08:00 10/04/19 12:20 Novolog SUBCUT 6 unit TIDWM PINA Administration Protocol Insulin Glargine 12 unit 10/01/19 21:00 10/03/19 20:19 Lantus SUBCUT 12 unit 2100 PINA Administration Isosorbide Mononit rate 30 mg 10/01/19 09:00 10/04/19 10:11 Imdur PO 30 mg BID PINA Administration Levothyroxine Sodi um 50 mcg 10/01/19 09:00 10/04/19 10:09 Synthroid PO 50 mcg DAILY PINA Administration Metoprolol Tartrat e 25 mg 10/01/19 09:00 10/04/19 10:10 Lopressor PO 25 mg BID PINA Administration Nifedipine 30 mg 10/01/19 09:00 10/04/19 10:10 Procardia Xl PO 30 mg DAILY PINA Administration Ondansetron HCl 4 mg 10/01/19 02:01 10/01/19 17:01 Zofran IVP 4 mg Q8H PRN Administration vomiting, or N/V if npo Polyethylene Glyco l 17 gm 10/01/19 09:00 10/04/19 10:10 Miralax PO 17 gm DAILY PINA Administration Potassium Chloride 20 meq 10/01/19 09:00 10/04/19 10:09 Klor-Con 10 PO 20 meq DAILY PINA Administration Senna/Docusate Sod ium 1 tab 10/01/19 09:00 10/04/19 10:11 Senna-S PO Not Given BID PINA duloxetine [From Cymbalta] Allergy (Verified 09/10/19 06:29) Unknown prochlorperazine [From Compazine] Allergy (Verified 09/10/19 06:29) ALGY-Anaphylaxis sucralfate [From Carafate] Allergy (Verified 09/10/19 06:29) Unknown trazodone Allergy (Verified 09/10/19 06:29) Unknown zaleplon [From Sonata] Allergy (Verified 09/10/19 06:29) Unknown Vitals/I&O/Wt Last Vital Signs Temp 97.7 F 10/04/19 11:01 Pulse 55 L 10/04/19 11:01 Resp 18 10/04/19 11:01 BP 153/97 10/04/19 11:01 Pulse Ox 99 10/04/19 11:01 10/03/19 10/04/19 10/04/19 22:59 06:59 14:59 Intake Total 470 / 830 0 / 830 454 / 454 Output Total 100 / 100 Balance 370 / 730 0 / 730 454 / 454 Physical Exam Const: COMMON NORMALS: no apparent distress and oriented x3 GENERAL APPEARANCE: cooperative and comfortable NUTRITIONAL APPEARANCE: obese morbidly obese ORIENTATION/CONSCIOUSNESS: Yes awake OTHER: -pallor, s itting in chair by bedside HENMT: COMMON NORMALS: normocephalic, head/scalp atraumatic, hearing grossly normal bilaterally and moist oral mucous membranes HEAD & SCALP: normocephalic and atraumatic Eye: COMMON NORMALS: PERRL, EOMs intact bilaterally and conjunctivae normal CONJUNCTIVA: Yes conjunctivae normal PUPIL: Yes PERRL Neck/C-Spine: COMMON NORMALS: full ROM GENERAL: Yes normal visual inspection and Yes trachea midline Resp: COMMON NORMALS: normal respiratory effort, no retractions, no use of accessory muscles and clear to auscultation bilaterally EFFORT & INSPECTION: Yes able to speak in complete sentences, Yes symmetric chest movement and No tachypneic AUSCULTATION: clear to auscultation bilaterally Cardio: COMMON NORMALS: regular rate, regular rhythm, S1 normal heart sound and S2 normal heart sound RATE: regular rate RHYTHM: regular rhythm HEART SOUNDS: S1 normal, S2 normal and murmur systolic GI: COMMON NORMALS: normal to inspection, nondistended, normoactive bowel sounds, soft to palpation and non-tender INSPECTION: Yes central obesity and Yes visible herniation PALPATION: Yes soft Extremity: COMMON NORMALS: normal to inspection, full ROM, no clubbing, cyanosis or edema and no pedal edema Neuro: COMMON NORMALS: oriented x3, moves all extremities, no focal motor deficits and no sensory deficits noted Psych: COMMON NORMALS: mental status grossly normal, thought process normal, cooperative, affect normal and speech normal SPEECH: Yes normal speech THOUGHT PROCESS: normal thought process Skin: COMMON NORMALS: no rashes or lesions noted, no jaundice, no petechiae and no mottling GENERAL SKIN EXAM: no rashes or lesions noted Data : 10/04/19 05:17 10/04/19 05:17 Micro: Microbiology 09/30/19 22:11 Blood Culture - Preliminary Blood Gram Negative Rods 09/30/19 22:25 Blood Culture - Preliminary Blood Escherichia coli esbl 09/30/19 22:18 Urine Culture - Final Urine Catheterized Escherichia coli esbl A&P Assessment and plan (1) Acute pyelonephritis: -UA strongly indicative of infection as evidenced by presence of leukocyte esterase, pyuria, bacteria -urine cx: ESBL E. coli, sensitivity noted -blood cx: 06/19 bottles positive for ESBL E. coli, repeat set prelim negative -Evidence of pyelonephritis involving right kidney on imaging -off Zosyn, on Primaxin (x 14 days), pending PICC line placement -initial concern for sepsis given fever, altered mental status, hypoxia. Has been afebrile x24 hours, mental status at baseline, hypoxia resolved. 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 -Had been discharged with a José catheter which was discontinued during her SNF stay -continue to monitor urine output, bladder scan as needed, may need replacement of José catheter if oliguric -Renal function currently is improved compared to most recent discharge -Continue to monitor renal function, avoid nephrotoxins, renally dose meds; lytes within normal limits Status: Acute (3) Altered mental status: -Altered mental status likely secondary to acute infection as noted above -Reorient as needed -Fall precautions -Patient's baseline mental status is alert and oriented x 3 Status: Resolved Qualifiers: Altered mental status type: disorientation Qualified Code(s): R41.0 - Disorientation, unspecified (4) Heart failure with preserved ejection fraction: -No acute exacerbation currently -cardiac diet as tolerated -Echo: EF=55%, G2DD, mild pulmonary HTN, mild , mild to moderate MR Status: Acute Qualifiers: Heart failure chronicity: chronic Qualified Code(s): I50.32 - Chronic diastolic (congestive) heart failure (5) Normocytic anemia: -Chronic normocytic anemia -baseline Hg 9-10; iron panel done during last admission -continue to monitor H/H -Has had GI workup done with colonoscopy (11/2014) unremarkable other than diverticuli and 5 mm sessile polyp in sigmoid colon (pathology-benign mucosa with edema and surface hyperplastic change, no malignancy). May need repeat w/u if continued anemia -Likely anemia of chronic disease -Due to worsening anemia received transfusion of 1 unit PRBCs (on 09/09) and IV iron. -noted drop to 7.0, s/p transfusion of 2 units PRBCs; got dose of lasix in between to prevent fluid overload. Hg up to 9.0 Status: Acute Additional A&P Information -Morbid obesity: BMI-38 kg/m2 -IDDM type II; A1c-7.1; Accucheks, ISS, scheduled insulin, hypoglycemia precautions -HTN; VSS: on oral antihypertensive regimen -Hyperlipidemia; on statin; lipid panel noted -Chronic atrial fibrillation, on BB, Eliquis; off heparin drip; intermittently bradycardic, during previous admission was noted to have atrial fibrillation with slow VR -Hypothyroidism; on Levothyroxine -hx of seronegative RA and OA -Hx of CAD with recent ACS requiring cath with intervention, PCI of RCA and balloon angioplasty of proximal and mid diagonal branch. Post-procedure had contrast-induced nephropathy. Has been on DAPT, Eliquis. -DVT ppx not needed as on Eliquis. If continued anemia, will need to hold this -Dispo: [facility] -Code status: FULL code Attestations Medical Necessity Statement*: Discharge to SNF today if PICC line placed. Time Spent in Patient Care: 16 - 35 minutes (>than 50% of time spent in counselling and/or direct pt care on unit) . Coding Level of Care Code Acute Joy Operator Helper for Kendall Mckeon Diagnoses Acute pyelonephritis N10 Acute kidney injury superimposed on chronic kidney disease N17.9; N18.9 Altered mental status R41.0 Altered mental status type: disorientation Heart failure with preserved ejection fraction I50.32 Heart failure chronicity: chronic Normocytic anemia D64.9
--- NOTE | 2019-10-04 13:07 | PM.DCS ---
Discharge Providers Date of Admission: 10/01/19 00:19 Date of Discharge: October 05, 2019 Attending Provider at Admission: Barrett Maloney MD Attending Provider at Discharge: Shoshana Patel MD Primary Care Provider: Betsy Nuno DO Diagnoses at Discharge Discharge Diagnosis (1) Acute pyelonephritis: Status: Acute Problem details: -UA strongly indicative of infection as evidenced by presence of leukocyte esterase, pyuria, bacteria -urine cx: ESBL E. coli, sensitivity noted -blood cx: 1/4 bottles positive for ESBL E. coli, repeat set prelim negative -Evidence of pyelonephritis involving right kidney on imaging -off Zosyn, on Primaxin (x 14 days), pending PICC line placement -initial concern for sepsis given fever, altered mental status, hypoxia. Has been afebrile x24 hours, mental status at baseline, hypoxia resolved. Procalcitonin elevated at 7.65, lactic acid 1.4 -No noted leukocytosis -will d/c IVF, due to high risk of developing fluid overload particularly with decreased urine output and need for transfusion of blood products (2) Acute kidney injury superimposed on chronic kidney disease: Status: Acute Problem details: -During last admission was noted to have contrast-induced nephropathy following cath done secondary to ACS -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 a baseline creatinine of approximately 1.6-2 -Had been discharged with a José catheter which was discontinued during her SNF stay -continue to monitor urine output, bladder scan as needed, may need replacement of José catheter if oliguric -Renal function currently is improved compared to most recent discharge -Continue to monitor renal function, avoid nephrotoxins, renally dose meds; lytes within normal limits (3) Altered mental status: Status: Resolved Problem details: -Altered mental status likely secondary to acute infection as noted above -Reorient as needed -Fall precautions -Patient's baseline mental status is alert and oriented x 3 Qualifiers: Altered mental status type: disorientation Qualified Code(s): R41.0 - Disorientation, unspecified (4) Heart failure with preserved ejection fraction: Status: Acute Problem details: -No acute exacerbation currently -cardiac diet as tolerated -Echo: EF=55%, G2DD, mild pulmonary HTN, mild , mild to moderate MR Qualifiers: Heart failure chronicity: chronic Qualified Code(s): I50.32 - Chronic diastolic (congestive) heart failure (5) Normocytic anemia: Status: Acute Problem details: -Chronic normocytic anemia -baseline Hg 9-10; iron panel done during last admission -continue to monitor H/H -Has had GI workup done with colonoscopy (11/2014) unremarkable other than diverticuli and 5 mm sessile polyp in sigmoid colon (pathology-benign mucosa with edema and surface hyperplastic change, no malignancy). May need repeat w/u if continued anemia -Likely anemia of chronic disease -Due to worsening anemia received transfusion of 1 unit PRBCs (on 09/09) and IV iron. -noted drop to 7.0, s/p transfusion of 2 units PRBCs; got dose of lasix in between to prevent fluid overload. Hg up to 9.0 Other Information Additional DC diagnoses/information: -Morbid obesity: BMI-38 kg/m2 -IDDM type II; A1c-7.1; Accucheks, ISS, scheduled insulin, hypoglycemia precautions -HTN; VSS: on oral antihypertensive regimen -Hyperlipidemia; on statin; lipid panel noted -Chronic atrial fibrillation, on BB, Eliquis; off heparin drip; intermittently bradycardic, during previous admission was noted to have atrial fibrillation with slow VR -Hypothyroidism; on Levothyroxine -hx of seronegative RA and OA -Hx of CAD with recent ACS requiring cath with intervention, PCI of RCA and balloon angioplasty of proximal and mid diagonal branch. Post-procedure had contrast-induced nephropathy. Has been on DAPT, Eliquis. Reason for Visit Reason for Visit: Reason For Visit: abd pain Hospital Course Hospital Course: Patient was admitted to the medical surgical floor and started on broad-spectrum IV antibiotics secondary to noted UTI. There was initial concern for sepsis as evidenced by hypoxia, fever and change in mental status. Her mental status gradually improved with IV antibiotic treatment and IV fluid hydration. She developed acutely worsening anemia requiring transfusion of 2 units of PRBCs with subsequent hemoglobin being stable at 9-9.1. Her creatinine has remained in the 2-2.2 range which appears to be her new baseline. Urine cultures and 1 out of 4 bottles of initial blood cultures grew ESBL E. coli and she has been started on Primaxin with plan to continue treatment for 14 days. Repeat blood cultures have been negative. She has also been placed on contact isolation precautions and due to need for continued IV antibiotic treatment has had a PICC line placed. As patient lives alone and requires continued IV antibiotic treatment she has opted to return to [facility] for the duration of her treatment. Her mental status has returned to baseline, she is no longer hypoxic, has been hemodynamically stable, afebrile during her hospital stay. She is tolerating oral intake without difficulty. She will require follow-up with her primary care provider within 1 week. She will need weekly CBC and CMP for the duration of IV antibiotic treatment. Discharge Summary: -Patient to follow-up with her primary care physician within 1 week Physical Exam Const: COMMON NORMALS: no apparent distress and oriented x3 GENERAL APPEARANCE: cooperative and comfortable NUTRITIONAL APPEARANCE: obese morbidly obese ORIENTATION/CONSCIOUSNESS: Yes awake OTHER: -pallor, resting in bed HENMT: COMMON NORMALS: normocephalic, head/scalp atraumatic, hearing grossly normal bilaterally and moist oral mucous membranes HEAD & SCALP: normocephalic and atraumatic Eye: COMMON NORMALS: PERRL, EOMs intact bilaterally and conjunctivae normal CONJUNCTIVA: Yes conjunctivae normal PUPIL: Yes PERRL Neck/C-Spine: COMMON NORMALS: full ROM GENERAL: Yes normal visual inspection and Yes trachea midline Resp: COMMON NORMALS: normal respiratory effort, no retractions, no use of accessory muscles and clear to auscultation bilaterally EFFORT & INSPECTION: Yes able to speak in complete sentences, Yes symmetric chest movement and No tachypneic AUSCULTATION: clear to auscultation bilaterally Cardio: COMMON NORMALS: regular rate, regular rhythm, S1 normal heart sound and S2 normal heart sound RATE: regular rate RHYTHM: regular rhythm HEART SOUNDS: S1 normal, S2 normal and murmur systolic GI: COMMON NORMALS: normal to inspection, nondistended, normoactive bowel sounds, soft to palpation and non-tender INSPECTION: Yes central obesity and Yes visible herniation PALPATION: Yes soft Extremity: COMMON NORMALS: normal to inspection, full ROM, no clubbing, cyanosis or edema and no pedal edema NARRATIVE EXTREMITY EXAM: -PICC line in LUE Neuro: COMMON NORMALS: oriented x3, moves all extremities, no focal motor deficits and no sensory deficits noted Psych: COMMON NORMALS: mental status grossly normal, thought process normal, cooperative, affect normal and speech normal SPEECH: Yes normal speech THOUGHT PROCESS: normal thought process Skin: COMMON NORMALS: no rashes or lesions noted, no jaundice, no petechiae and no mottling GENERAL SKIN EXAM: no rashes or lesions noted Discharge Data Data Completed and Pending: Completed Studies During Hospitalization Category Date Time Status CT abdomen pelvis w con* [id number] Urge nt Cat Scan 09/30/19 21:[address] head wo con* [id number] Urgent Cat Scan 10/01/19 02:01 Completed XR chest 1V jenna ble [id number] Urgent Exams 09/30/19 21:38 Completed Pending at discharge Category Date Time Status Blood Culture Sta t Lab 09/30/19 22:25 Results Blood Culture Sta t Lab 10/01/19 19:55 Results Clostridium Diffi cile BY PCR Routin e Lab 09/30/19 21:41 Uncollected Labs from last 24 hours 10/04/19 10/04/19 10/04/19 10:29 06:25 05:17 WBC RBC Hgb Hct MCV MCH MCHC RDW Plt Count MPV Neut % (Auto) Lymph % (Auto) [place] % (Auto) Eos % (Auto) Baso % (Auto) Neut # (Auto) Lymph # (Auto) [place] # (Auto) Eos # (Auto) Baso # (Auto) Nucleated RBC % (a uto) Nucleated RBCs # Sodium 134 L Potassium 4.2 Chloride 102 Carbon Dioxide 18 L Anion Gap 18.2 BUN 32 H Creatinine 2.2 H GFR Calculation 22.1 L Glucose 144 H POC Glucose 244 139 Calculated Osmolal ity 278 L Calcium 8.5 10/04/19 10/03/19 10/03/19 05:17 20:52 16:20 WBC 7.3 RBC 3.10 L Hgb 9.1 L Hct 28.7 L MCV 92.6 MCH 29.4 MCHC 31.7 RDW 17.9 H Plt Count 100 L MPV 11.8 H Neut % (Auto) 71.4 Lymph % (Auto) 12.3 [place] % (Auto) 12.1 Eos % (Auto) 2.6 Baso % (Auto) 0.5 Neut # (Auto) 5.2 Lymph # (Auto) 0.9 [place] # (Auto) 0.9 Eos # (Auto) 0.2 Baso # (Auto) 0.0 Nucleated RBC % (a uto) 0 Nucleated RBCs # 0.0 Sodium Potassium Chloride Carbon Dioxide Anion Gap BUN Creatinine GFR Calculation Glucose POC Glucose 229 233 Calculated Osmolal ity Calcium Vitals: Last Vital Signs Temp 97.7 F 10/04/19 11:01 Pulse 55 L 10/04/19 11:01 Resp 18 10/04/19 11:01 BP 153/97 10/04/19 11:01 Pulse Ox 99 10/04/19 11:01 Discharge Plan Discharge Patient Disposition: Xfer SNF Condition: Stable Prescriptions: New Primaxin IV 500 mg recon soln 1 ml IVP Q8H 14 Days Qty: 42 RF: 0 ipratropium-albuterol 0.5 mg-3 mg(2.5 mg base)/3 mL Solution For Nebulization 3 ml inhalation Q4H PRN (Reason: Shortness Of Breath) Qty: 360 RF: 0 Miralax 17 gram Powder In Packet 17 g PO DAILY Qty: 30 RF: 0 sennosides-docusate sodium 8.6-50 mg Tablet 1 tab PO BID Qty: 60 RF: 0 potassium chloride 10 mEq Tablet Extended Release 20 meq PO DAILY Qty: 30 RF: 0 clopidogrel 75 mg Tablet 75 mg PO DAILY Qty: 30 RF: 0 Fleet Mineral Oil Enema 118 ml MD DAILY PRN (Reason: constipation) Qty: 600 RF: 0 bumetanide 1 mg Tablet 1 mg PO DAILY Qty: 30 RF: 0 Dexilant 60 mg capsule,biphase delayed releas 60 mg PO DAILY Qty: 30 RF: 0 Eliquis 5 mg Tablet 2.5 mg PO BID Qty: 30 RF: 0 Continued fentanyl 50 mcg/hr patch 72 hour 50 mcg topical Q72H Qty: 10 RF: 0 Zofran 4 mg Tablet 4 mg PO BID PRN (Reason: Nausea) Qty: 30 RF: 0 nifedipine 30 mg Tablet Extended Release 30 mg PO DAILY Qty: 30 RF: 0 levothyroxine 50 mcg tablet 50 mcg PO DAILY Qty: 30 RF: 0 bisacodyl 10 mg suppository 10 mg MD DAILY PRN (Reason: Constipation) Qty: 30 RF: 0 sertraline 25 mg tablet 25 mg PO DAILY Qty: 30 RF: 0 gabapentin 100 mg capsule 100 mg PO BEDTIME Qty: 30 RF: 0 rosuvastatin 20 mg tablet 20 mg PO BEDTIME Qty: 30 RF: 0 acetaminophen 325 mg capsule 325 mg PO QID PRN (Reason: fever or mild pain) Qty: 30 RF: 0 Lantus Solostar U-100 Insulin 100 unit/mL (3 mL) Insulin Pen 12 unit SUBCUT DAILY Qty: 3 RF: 0 Changed Novolog U-100 Insulin aspart 100 unit/mL Solution 5 unit SUBCUT TIDWM Qty: 3 RF: 0 Discontinued bisacodyl 10 mg suppository 10 mg MD DAILY PRNRF: 0 acetaminophen 325 mg capsule 325 mg PO QID PRNRF: 0 fentanyl 50 mcg/hr patch 72 hour 50 mcg topical Q72H RF: 0 gabapentin 100 mg capsule 100 mg PO BEDTIME RF: 0 levothyroxine 50 mcg tablet 50 mcg PO DAILY RF: 0 insulin aspart U-100 [Novolog Flexpen U-100 Insulin] 100 unit/mL (3 mL) insulin pen See Protocol unit SUBCUT AC RF: 0 rosuvastatin 20 mg tablet 20 mg PO BEDTIME RF: 0 sertraline 25 mg tablet 25 mg PO DAILY RF: 0 ondansetron HCl [Zofran] 4 mg Tablet 4 mg PO BID PRN (Reason: Nausea) RF: 0 nifedipine 30 mg Tablet Extended Release 30 mg PO DAILY RF: 0 Lantus Solostar U-100 Insulin 100 unit/mL (3 mL) Insulin Pen 12 unit SUBCUT DAILY RF: 0 isosorbide mononitrate 30 mg tablet extended release 24 hr 30 mg PO BID Qty: 0 RF: 0 metoprolol tartrate 50 mg tablet 25 mg PO BID Qty: 60 RF: 0 Discharge Orders: Discharge Order (Routine); Ordered 10/05/19 Ordered By: Shoshana Patel Referrals: Betsy Nuno DO [Primary Care Provider] - 4-7 days (Post hospital discharge follow up. Treated for ESBL E.coli UTI with Primaxin, received 2 units PRBCs due to acutely worsening anemia) Discharge Diet: Cardiac Discharge Activity: As per PT/OT instructions Activity Restrictions/Additional Instructions: -Patient to have weekly CBC and CMP while on IV antibiotic treatment -Patient continue supplemental oxygen to maintain her saturation at or above 92% or for comfort -Patient will require continued contact isolation precautions secondary to ESBL E. coli UTI until the completion of her IV antibiotic treatment. -PICC line can be discontinued once she has finished her IV antibiotic treatment course Discharge Attestations Time Spent in Discharge Care*: greater than 30 min Specific Discharge Activities: Specific discharge activities: educating patient, discussing with shoe parts caser/social workers/dc planners, documenting/other paperwork and evaluating patient/reviewing data Status at Discharge: Cognitive status at discharge: cognitively intact, Behavioral status at discharge: cooperative, Functional status at discharge: uses cane/walker Overall status at discharge: patient is back to baseline Quality Metrics Clinical Quality Measures During this hospital stay, did patient experience: None Coding Level of Care Code Acute Family Court Counsellor for g Fwd Exam Comprehensive Diagnoses Acute pyelonephritis N10 Acute kidney injury superimposed on chronic kidney disease N17.9; N18.9 Altered mental status R41.0 Altered mental status type: disorientation Heart failure with preserved ejection fraction I50.32 Heart failure chronicity: chronic Normocytic anemia D64.9
--- NOTE | 2019-10-04 15:43 | XR_ITS ---
WS: [id number] CHEST XRAY TECHNIQUE: Portable chest. CLINICAL INFORMATION: PICC PLACEMENT COMPARISON: None. FINDINGS: Left PICC line with tip in the distal SVC. No pneumothorax. Heart: Stable cardiomegaly. Lungs: Mild chronic emphysematous changes. No acute pulmonary infiltrates. Bones: Normal visualized bony structures. XR/XR chest 1V portable [id number] IMPRESSION: Left PICC line with tip in distal SVC
--- NOTE | 2019-10-04 16:35 | PC.OT ---
OT tx attempted at this time. Pt is off the floor for PICC line placement. Plan to resume OT tx in the morning.
[2019-10-04 17:32] LABS: Glucose Point of Care 243 mg/dL (70-110)
[2019-10-04] MEDS: insulin glargine 100 units/1 mL 12 UNIT SUBCUT (19:39)
[2019-10-04] MEDS: gabapentin 100 mg Capsule PO (19:39)
[2019-10-04] MEDS: atorvastatin 40 mg Tablet 80 MG PO (19:39)
[2019-10-04 20:22] LABS: Glucose Point of Care 221 mg/dL (70-110)
[2019-10-05] VITALS: BP 138/65; PULSE 58; RESP 20; TEMP 37.1; O2SAT 98
[2019-10-05 03:38] VITALS: BP 110/56; PULSE 53; RESP 18; TEMP 36.8; O2SAT 96
[2019-10-05] MEDS: ondansetron 2 mg/ML SDV 2 mL 4 MG IVP (04:21)
[2019-10-05 06:48] LABS: Glucose Point of Care 138 mg/dL (70-110)
[2019-10-05 08:00] VITALS: BP 121/58; PULSE 51; RESP 18; TEMP 36.6; O2SAT 97
--- NOTE | 2019-10-05 08:37 | P.MISC_ITS ---
Miscellaneous Note Note: Patient did well overnight, VSS, PICC line placed late yesterday afternoon. Patient to be discharged today to [facility]. Rest of details of documentation unchanged.
[2019-10-05 08:47] VITALS: PULSE 54; RESP 18; O2SAT 96
[2019-10-05 09:01] VITALS: PULSE 54; RESP 18; O2SAT 96
[2019-10-05] MEDS: metoprolol tartrate 50 mg Tablet 25 MG PO (09:38)
[2019-10-05] MEDS: levothyroxine 50 mcg Tablet PO (09:38)
[2019-10-05] MEDS: NIFEdipine ER (24 hr) 30 mg Tablet PO (09:38)
[2019-10-05] MEDS: isosorbide mononitrate ER 30 mg Tablet PO (09:38)
[2019-10-05] MEDS: apixaban 5 mg Tablet 2.5 MG PO (09:39)
[2019-10-05] MEDS: clopidogrel 75 mg Tablet PO (09:39)
[2019-10-05 10:58] LABS: Glucose Point of Care 183 mg/dL (70-110)
== END 2019-10-05 11:17 | disposition skilled nursing facility (03) | DRG 872 ==
LOC: ER 10-01 00:02 → MEDSURG 10-01 01:15
PROVIDERS: Admitting Provider Family Medicine; Emergency Provider Emergency Medicine; Family Provider Family Medicine; PCP Family Medicine; Visit Provider Family Medicine
DX: A41.9 Sepsis, unspecified organism (principal); N10 Acute pyelonephritis; I48.20 Chronic atrial fibrillation, unspecified; I13.0 Hypertensive heart and chronic kidney disease with heart failure and stage 1 through stage 4 chronic kidney disease, or unspecified chronic kidney disease; I50.32 Chronic diastolic (congestive) heart failure; N17.9 Acute kidney failure, unspecified; N39.0 Urinary tract infection, site not specified; I48.92 Unspecified atrial flutter; Z79.01 Long term (current) use of anticoagulants; E11.22 Type 2 diabetes mellitus with diabetic chronic kidney disease; N18.3 Chronic kidney disease, stage 3 (moderate); I25.10 Atherosclerotic heart disease of native coronary artery without angina pectoris; Z98.61 Coronary angioplasty status; I27.20 Pulmonary hypertension, unspecified; I35.0 Nonrheumatic aortic (valve) stenosis; E66.01 Morbid (severe) obesity due to excess calories; Z68.38 Body mass index [BMI] 38.0-38.9, adult; Z79.4 Long term (current) use of insulin; E78.5 Hyperlipidemia, unspecified; E03.9 Hypothyroidism, unspecified; Z87.891 Personal history of nicotine dependence; R41.82 Altered mental status, unspecified; Z87.440 Personal history of urinary (tract) infections; K59.03 Drug induced constipation; T40.2X5A Adverse effect of other opioids, initial encounter; B96.20 Unspecified Escherichia coli [E. coli] as the cause of diseases classified elsewhere; M19.90 Unspecified osteoarthritis, unspecified site; M06.00 Rheumatoid arthritis without rheumatoid factor, unspecified site; D63.1 Anemia in chronic kidney disease
CPT/HCPCS: 12345; 36415; 36416; 36430; 36569; 51798; 70450; 71045; 74177; 80048; 80053; 81001; 82962; 83036; 83605; 83690; 83735; 84100; 84145; 85014; 85018; 85025; 85610; 86140; 86850; 86900; 86920; 87040; 87077; 87086; 87186; 87205; 87493; 87804; 94640; 94664; 96365; 96372; 96375; 97110; 97116; 97161; 97165; 97530; 97535; 99283; 99284; J0696; J0743; J1815; J1940; J2405; J2543; J7030; J7050; P9016; Q9967

== ENCOUNTER 2019-11-12 07:51 | Outpatient (CLI) | payer MEDICARE, MEDICAID, SELFPAY ==
--- NOTE | 2019-11-12 08:15 | XRR_ITS ---
PROCEDURE INFORMATION: Exam: XR Right Shoulder Exam date and time: 11/12/2019 8:28 AM Age: 68 years old Clinical indication: Pain; Shoulder; Right TECHNIQUE: Imaging protocol: XR Right shoulder. Views: 2 or more views. COMPARISON: No relevant prior studies available. FINDINGS: Bones/joints: Moderate degenerative changes of the acromioclavicular joint. Degenerative changes of the glenohumeral joint Scapula normal Visualized ribs and visualized pulmonary parenchyma normal Coracoid process normal Possible subacromial spur. Soft tissues: Normal. XR/XR shoulder RT min 2V* [id number] IMPRESSION: 1. Degenerative changes of the acromioclavicular joint and glenohumeral joint. 2. Possible subacromial spur.
== END 2019-11-12 07:52 | disposition home or self-care (01) ==
LOC: RAD 07:55
PROVIDERS: PCP Family Medicine; Visit Provider Family Medicine
DX: M25.511 Pain in right shoulder (principal); N10 Acute pyelonephritis; N39.0 Urinary tract infection, site not specified; R33.9 Retention of urine, unspecified
CPT/HCPCS: 73030; 80053; 81001; 87077; 87086; 87186

== ENCOUNTER 2019-12-02 19:52 | Emergency (ER) | payer MEDICARE, MEDICAID, SELFPAY ==
[2019-12-02] VITALS (32 sets, daily range): BP systolic 150–183; BP diastolic 46–70; PULSE 52–57; RESP 8–21; TEMP 36.9; O2SAT 91–98; BMI 37.3
--- NOTE | 2019-12-02 20:07 | W.ED.ABDPA2 ---
HPI - Abdominal Pain General: Chief Complaint: Abdominal Pain Stated Complaint: ABD PAIN Time Seen by Provider: 12/02/19 19:53 Source: patient and EMS Mode of arrival: EMS Limitations: no limitations History of Present Illness: HPI narrative: Ms. Montalvo is a very nice 68-year-old female who comes in complaining of abdominal pain for the past 2 days. Is described as constant that waxes and wanes in intensity. She is been nauseated and she believes she may have spit up a small amount of yellow emesis but it was very minor in amount. She had a normal nonbloody bowel movement today. She denies any urinary symptoms, vaginal discharge or bleeding, fevers or chills. She denies any aggravating or alleviating factors. She feels as though she is had something like this in the past but has been quite some time and she cannot remember the cause of the symptoms. Associated Symptoms: Reports nausea and vomiting; Denies chills, coffee ground emesis, constipation, GI cramping, diarrhea, dysuria, fever(s), heartburn, hematochezia, hematuria, hematemesis, melena and syncope Review of Systems Const: Denies: fever(s), chills, body aches, fatigue, malaise or diaphoresis Eyes: Denies: change in vision, blurry vision, blind spots, photophobia, eye discharge or eye redness ENMT: Denies: throat pain, odynophagia, hoarseness, swelling of lips/tongue, oral sores, ear or mastoid pain, ear discharge, change in hearing or nasal discharge Card: Denies: chest pain, palpitations, irregular heart rhythm, edema, lightheadedness, syncope, pre-syncope, dyspnea on exertion or orthopnea Resp: Denies: dyspnea, productive cough, non-productive cough, wheezing, hemoptysis or chest congestion GI: Reports: abdominal pain, nausea and vomiting; Denies: hematemesis, coffee ground emesis, heartburn, diarrhea, constipation, GI cramping, hematochezia or melena : Denies: flank pain, dysuria, urinary frequency, urinary urgency or hematuria Musc: Denies: neck pain, back pain, extremity pain, extremity swelling, joint pain, joint swelling, joint redness, joint warmth or joint stiffness Skin/Breast: Denies: rash, pruritus, erythema, skin tenderness or jaundice Neuro: Denies: headache(s), numbness in extremities, weakness in extremities, sensory changes, lack of coordination, difficulty walking, dizziness, vertigo, confusion, Slurred speech present or seizure-like activity Francois/Lymph: Denies: easy bruising, easy bleeding, petechiae, purpura or enlarged lymph nodes All/Imm: Denies: urticaria, throat swelling, tongue swelling, facial swelling or acute wheezing PFSH ED PFSH: Medical History Adverse drug reaction Angina pectoris Aortic stenosis Atrial fibrillation by electrocardiogram CAD (coronary artery disease) Cellulitis CHF (congestive heart failure) Dental caries Diabetes DJD (degenerative joint disease) Fibula fracture Gastroenteritis GERD (gastroesophageal reflux disease) HTN (hypertension) Hypercholesterolemia Hyperlipidemia Radius fracture Recurrent UTI Renal failure Rhabdomyolysis Tibia fracture UTI (urinary tract infection) Vertigo Surgical History History of cardiac catheterization History of hernia repair History of hip surgery History of hysterectomy History of knee surgery History of sinus surgery History of tonsillectomy History of umbilical hernia repair Family History Father , in his 60's Lung disease Mother , 99 Hypertension Other Diabetes Stroke Denies family history of CAD (coronary artery disease) Clotting disorder Dementia Chronic kidney disease (CKD) Social History Smoking and tobacco status: never smoked Quit status (tobacco): has quit using tobacco Former quit date comment: Smoking in her 20s Alcohol intake: never Caregiver/support person: Yes (Home health services Friday) Lives independently: Yes Housing: House Marital status: Current occupational status: retired History of recent travel: No Current gender identity: Female Physical Exam Const: COMMON NORMALS: no acute distress, patient oriented x3, no limitations, healthy appearing and well nourished GENERAL APPEARANCE: cooperative, well kempt and well developed HENMT: COMMON NORMALS: normocephalic, atraumatic, external ears normal, EAC's normal and Normal external nose present HEAD & SCALP: normal to inspection, normocephalic and atraumatic FACE & SINUS: normal facial exam and face symmetric NOSE: Normal external nose present and Normal nares present EXTERNAL EAR: Yes external ears normal EXTERNAL AUDITORY CANAL: EAC's normal MOUTH: Normal oral and palatal mucosa present, lip normal and tongue normal Eye: COMMON NORMALS: Equal, round and reactive pupils present and conjunctivae normal GENERAL EYE: appearance normal, both eyes and all related structures ALIGNMENT: Yes alignment normal PERIORBITAL: periorbital findings normal EYELID: eyelids normal CONJUNCTIVA: Yes conjunctivae normal SCLERA: sclerae normal PUPIL: Yes Equal, round and reactive pupils present Neck/C-Spine: COMMON NORMALS: full ROM, no lymphadenopathy, supple, no meningeal signs and no JVD GENERAL: Yes normal visual inspection and Yes trachea midline Chest: COMMONS NORMALS: normal inspection of the chest and normal palpation of entire chest wall Resp: COMMON NORMALS: normal respiratory effort, No retractions and No use of accessory muscles EFFORT & INSPECTION: Yes able to speak in complete sentences and Yes symmetric chest movement AUSCULTATION: no crackles, no rales, no rhonchi and no wheezes Cardio: COMMON NORMALS: no JVD, regular rate, regular rhythm, S1 normal heart sound present and S2 normal heart sound present RATE: regular rate RHYTHM: regular rhythm HEART SOUNDS: S1 normal heart sound present, S2 normal heart sound present, no click, no gallops, no murmurs, no rubs and abnormal split S2 GI: COMMON NORMALS: Soft to palpation and No hepatosplenomegaly present PALPATION: Yes Soft to palpation, Yes Tenderness to palpation present (GI) (Mild diffusely), No Guarding due to palpation present (GI), No Rigid due to palpation, Yes No hepatosplenomegaly present, No Hernia present, No Palpable mass present and No Pulsatile mass present : COMMON NORMALS: Yes no CVA tenderness BLADDER/KIDNEY EXAM: Yes no CVA tenderness EXTERNAL FEMALE EXAM: No Hernia present Back/Pelvis: COMMON NORMALS: no CVA tenderness, thoracic and lumbar spine normal to inspection, no thoracic nor lumbar tenderness and thoraco-lumbar ROM normal Extremity: COMMON NORMALS: normal to inspection, full ROM, capillary refill normal, no joint enlargement, no clubbing, cyanosis or edema and no calf tenderness Neuro: COMMON NORMALS: patient oriented x3, CN's II-XII intact bilaterally, moves all extremities, no focal motor deficits and no sensory deficits noted MENINGEAL SIGNS: Yes no meningeal signs SPEECH: speech normal Psych: APPEARANCE: Yes well kempt Skin: COMMON NORMALS: no rashes or lesions noted, turgor normal, no jaundice, no petechiae and no mottling GENERAL SKIN EXAM: no rashes or lesions noted and turgor normal Course Vital Signs: Vital signs: Vital Signs Temperature 98.4 F 12/02/19 19:58 Pulse Rate 56 L 12/02/19 19:58 Respiratory Rate 17 12/02/19 20:27 Blood Pressure 183/70 12/02/19 19:58 Pulse Oximetry 97 12/02/19 20:27 MDM - Abdominal Pain MDM Narrative: Medical decision making narrative: Ms. Montalvo is a very nice 68-year-old female who comes in with a 2-day history of intermittent abdominal pain. She felt like her abdomen was slightly distended. She did have a BM today which was normal and nonbloody. She spit up a slight amount of yellow-tinged fluid but otherwise feels okay. Her abdomen is soft and nontender to palpation and she is feeling better after the fluids I have given her here. She does have a history of chronic kidney disease and she looks as though she is in the upper limits of her normal. After hydration I did recheck her potassium and it is down and there are no EKG changes to suggest hyperkalemia. Have tried repeatedly to get the patient to stay for further treatment especially for dehydration and her kidney function but she refuses. She understands the risks of leaving without further evaluation but she still wants to leave. She is going to try to follow-up with Dr. Nuno later today but agrees to return here for recheck later today or tomorrow if she is unable to be seen by Dr. Nuno. She will also hold her potassium for 1 day but otherwise try to push oral fluids and continue her medications as she normally takes them. Again I have recommended and asked the patient to stay but she refuses. But she does understand she needs to return if her symptoms worsen or change. Lab Data: Attestation: I reviewed the patient's lab results. Labs: Lab Results 12/02/19 12/02/19 12/02/19 Range/Units 20:13 20:13 20:13 WBC 6.1 (4.0-10.0) 10^3/ uL RBC 3.23 L (4.1-5.3) 10^6/u L Hgb 9.8 L (11.5-15.3) g/dL Hct 30.9 L (37.0-47.0) % MCV 95.7 (81-99) fL MCH 30.3 (28.0-34.0) pg MCHC 31.7 (30.0-36.0) g/dL RDW 18.2 H (12.1-15.1) % Plt Count 157 (130-400) 10^3/c mm MPV 10.3 (7.4-10.4) fL Neut % (Auto) 63.0 % Lymph % (Auto) 21.4 % Sterling % (Auto) 10.9 % Eos % (Auto) 3.3 % Baso % (Auto) 0.7 % Neut # (Auto) 3.9 (1.8-7.7) 10^3/u L Lymph # (Auto) 1.3 (0.8-4.8) 10^3/u L Sterling # (Auto) 0.7 (0.2-0.9) 10^3/u L Eos # (Auto) 0.2 (0.0-0.8) 10^3/u L Baso # (Auto) 0.0 (0.0-0.1) 10^3/u L Nucleated RBC % (a uto) 0 % Nucleated RBCs # 0.0 /100WBC PT (10.5-13.3) SECO NDS INR (0.8-1.2) APTT (23.9-36.7) SECO NDS Sodium 135 L (136-145) mmol/L Potassium 5.9 H (3.5-5.1) mmol/L Chloride 100 (98-107) mmol/L Carbon Dioxide 23 (22-29) mmol/L Anion Gap 17.9 (5-19) BUN 51 H (8-23) mg/dL Creatinine 3.6 H (0.5-0.9) mg/dL GFR Calculation 12.5 L (90-130) mL/min Glucose 82 (65-115) mg/dL Calculated Osmolal ity 277 L (285-295) mOsm/k g Lactic Acid (0.5-2.2) mmol/L Calcium 9.6 (8.5-10.5) mg/dL Magnesium 2.3 (1.7-2.3) mg/dL Total Bilirubin 0.5 (0.15-1.2) mg/dL AST 14 (0-32) U/L ALT 10 (0-33) U/L Alkaline Phosphata se 104 (35-105) IU/L Troponin T Baselin e (0-10) ng/L Troponin T 120 Min [place] (0-10) ng/L Delta Troponin T (0-10) ABS# Total Protein 7.5 (6.6-8.7) g/dL Albumin 4.4 (3.5-5.2) g/dL Globulin 3.1 (1.3-4.6) g/dL Lipase 22 (13-60) U/L Urine Color (Yellow) Urine Appearance (CLEAR) Urine pH (5-7) Ur Specific Gravit y (1.005-1.030) Urine Protein (Negative) Urine Glucose (UA) (Normal) Urine Ketones (Negative) Urine Blood (Negative) Urine Nitrate (Negative) Urine Bilirubin (NEGATIVE) Urine Urobilinogen (Negative) mg/dL Ur Leukocyte Greer ase (Negative) Urine RBC (0-2) /hpf Urine WBC (0-5) /hpf Ur Squamous Epith Cells (0-5) Ur Transition Epit h Cell /hpf Urine Bacteria (NONE) H. pylori IgG Anti body Negative (Negative) 12/02/19 12/02/19 12/02/19 Range/Units 20:13 20:13 20:13 WBC (4.0-10.0) 10^3/ uL RBC (4.1-5.3) 10^6/u L Hgb (11.5-15.3) g/dL Hct (37.0-47.0) % MCV (81-99) fL MCH (28.0-34.0) pg MCHC (30.0-36.0) g/dL RDW (12.1-15.1) % Plt Count (130-400) 10^3/c mm MPV (7.4-10.4) fL Neut % (Auto) % Lymph % (Auto) % Sterling % (Auto) % Eos % (Auto) % Baso % (Auto) % Neut # (Auto) (1.8-7.7) 10^3/u L Lymph # (Auto) (0.8-4.8) 10^3/u L Sterling # (Auto) (0.2-0.9) 10^3/u L Eos # (Auto) (0.0-0.8) 10^3/u L Baso # (Auto) (0.0-0.1) 10^3/u L Nucleated RBC % (a uto) % Nucleated RBCs # /100WBC PT 13.90 H (10.5-13.3) SECO NDS INR 1.03 (0.8-1.2) APTT 29.2 (23.9-36.7) SECO NDS Sodium (136-145) mmol/L Potassium (3.5-5.1) mmol/L Chloride (98-107) mmol/L Carbon Dioxide (22-29) mmol/L Anion Gap (5-19) BUN (8-23) mg/dL Creatinine (0.5-0.9) mg/dL GFR Calculation (90-130) mL/min Glucose (65-115) mg/dL Calculated Osmolal ity (285-295) mOsm/k g Lactic Acid 0.7 (0.5-2.2) mmol/L Calcium (8.5-10.5) mg/dL Magnesium (1.7-2.3) mg/dL Total Bilirubin (0.15-1.2) mg/dL AST (0-32) U/L ALT (0-33) U/L Alkaline Phosphata se (35-105) IU/L Troponin T Baselin e 56 H (0-10) ng/L Troponin T 120 Min [place] (0-10) ng/L Delta Troponin T (0-10) ABS# Total Protein (6.6-8.7) g/dL Albumin (3.5-5.2) g/dL Globulin (1.3-4.6) g/dL Lipase (13-60) U/L Urine Color (Yellow) Urine Appearance (CLEAR) Urine pH (5-7) Ur Specific Gravit y (1.005-1.030) Urine Protein (Negative) Urine Glucose (UA) (Normal) Urine Ketones (Negative) Urine Blood (Negative) Urine Nitrate (Negative) Urine Bilirubin (NEGATIVE) Urine Urobilinogen (Negative) mg/dL Ur Leukocyte Greer ase (Negative) Urine RBC (0-2) /hpf Urine WBC (0-5) /hpf Ur Squamous Epith Cells (0-5) Ur Transition Epit h Cell /hpf Urine Bacteria (NONE) H. pylori IgG Anti body (Negative) 12/02/19 12/02/19 12/02/19 Range/Units 20:50 22:15 22:15 WBC (4.0-10.0) 10^3/ uL RBC (4.1-5.3) 10^6/u L Hgb (11.5-15.3) g/dL Hct (37.0-47.0) % MCV (81-99) fL MCH (28.0-34.0) pg MCHC (30.0-36.0) g/dL RDW (12.1-15.1) % Plt Count (130-400) 10^3/c mm MPV (7.4-10.4) fL Neut % (Auto) % Lymph % (Auto) % Sterling % (Auto) % Eos % (Auto) % Baso % (Auto) % Neut # (Auto) (1.8-7.7) 10^3/u L Lymph # (Auto) (0.8-4.8) 10^3/u L Sterling # (Auto) (0.2-0.9) 10^3/u L Eos # (Auto) (0.0-0.8) 10^3/u L Baso # (Auto) (0.0-0.1) 10^3/u L Nucleated RBC % (a uto) % Nucleated RBCs # /100WBC PT (10.5-13.3) SECO NDS INR (0.8-1.2) APTT (23.9-36.7) SECO NDS Sodium 137 (136-145) mmol/L Potassium 5.4 H (3.5-5.1) mmol/L Chloride 102 (98-107) mmol/L Carbon Dioxide 22 (22-29) mmol/L Anion Gap 18.4 (5-19) BUN 51 H (8-23) mg/dL Creatinine 3.5 H (0.5-0.9) mg/dL GFR Calculation 13.0 L (90-130) mL/min Glucose 73 (65-115) mg/dL Calculated Osmolal ity 281 L (285-295) mOsm/k g Lactic Acid (0.5-2.2) mmol/L Calcium 9.2 (8.5-10.5) mg/dL Magnesium (1.7-2.3) mg/dL Total Bilirubin (0.15-1.2) mg/dL AST (0-32) U/L ALT (0-33) U/L Alkaline Phosphata se (35-105) IU/L Troponin T Baselin e (0-10) ng/L Troponin T 120 Min [place] 52.28 H (0-10) ng/L Delta Troponin T -3.72 L (0-10) ABS# Total Protein (6.6-8.7) g/dL Albumin (3.5-5.2) g/dL Globulin (1.3-4.6) g/dL Lipase (13-60) U/L Urine Color Yellow (Yellow) Urine Appearance Clear (CLEAR) Urine pH 5 (5-7) Ur Specific Gravit y 1.025 (1.005-1.030) Urine Protein Neg (Negative) Urine Glucose (UA) 4+ H (Normal) Urine Ketones Negative (Negative) Urine Blood Neg (Negative) Urine Nitrate Negative (Negative) Urine Bilirubin Neg (NEGATIVE) Urine Urobilinogen Norm (Negative) mg/dL Ur Leukocyte Greer ase Negative (Negative) Urine RBC 0-4 H (0-2) /hpf Urine WBC None (0-5) /hpf Ur Squamous Epith Cells 15-25 H (0-5) Ur Transition Epit h Cell 0-4 /hpf Urine Bacteria Trace (NONE) H. pylori IgG Anti body (Negative) Imaging Data ^: CT Abd/Pel: Radiologist's impression: [address] [address] [address] Scan Report Signed Patient: Fantasma Montalvo Unit #: [id number] : 1950 Age/Sex: 68 / F ADM Date: 12/02/19 Loc: ER Room/Bed: Attending Dr: Ordering Provider/Ordering MD: Adelita Javed DO Date of Service: 12/02/19 Procedure(s): CT abdomen pelvis wo con [id number] Accession Number(s): [id number] Report Number: [id number] PROCEDURE INFORMATION: Exam: CT Abdomen And Pelvis Without Contrast Exam date and time: 12/02/2019 8:50 PM Age: 68 years old Clinical indication: Bloating; Prior surgery; Surgery type: Bilat hip, hyst, umbilical hernia, cardiac cath; Additional info: Abdominal pain TECHNIQUE: Imaging protocol: Computed tomography of the abdomen and pelvis without contrast. Radiation optimization: All CT scans at this facility use at least one of these dose optimization techniques: automated exposure control; mA and/or kV adjustment per patient size (includes targeted exams where dose is matched to clinical indication); or iterative reconstruction. COMPARISON: No relevant prior studies available. RADIATION DOSE METRICS: Total DLP (mGy-cm): 1761.64 FINDINGS: Lungs: There is subpleural atelectasis of the dependent portions of the lungs. There is also probable basilar fibrosis. Liver: Unremarkable.No mass. Gallbladder and bile ducts: Multiple calcified gallstones are present. There is no wall thickening or pericholecystic fluid to suggest cholecystitis. There is no common bile duct dilation. Pancreas: Normal. No ductal dilation. Spleen: Normal. No splenomegaly. Adrenals: Normal. No mass. Kidneys and ureters: There are bilateral renal vascular calcifications. No definite nephrolithiasis. No hydronephrosis. Stomach and bowel: There is abundant colonic stool compatible with constipation but no impaction. There is no evidence of colitis/diverticulitis. There is no evidence of intestinal perforation or obstruction. Appendix: No evidence of appendicitis. Intraperitoneal space: Unremarkable. No free air. No significant fluid collection. Vasculature: The aorta demonstrates moderate atherosclerotic calcification. Lymph nodes: Unremarkable.No enlarged lymph nodes. Bladder: The bladder is normal. Reproductive: There has been a hysterectomy. Bones/joints: There is artifact from the bilateral hip arthroplasties. There is osteopenia with severe degenerative changes in the spine and pelvis. Soft tissues: Postoperative changes of a abdominal hernia repair are noted. Other findings: There is mild dependent edema. There is levoscoliosis. CT/CT abdomen pelvis con [id number] IMPRESSION: 1. There is abundant colonic stool compatible with constipation but no impaction. 2. No acute abnormality. Radiation Dose CTDIVOL = (mGy): DLP = 1761.64 (mGy-cm) Dictated By: Sharmaine Sawyer Signed By: Sharmaine Sawyer Signed Date/Time: 12/02/192118 DD/ 17 EKG Data ^: EKG 1: Attestation: I personally reviewed and interpreted this EKG as follows: EKG interpretation date: 12/03/19 EKG interpretation time: 21:20 Interpretation: Normal sinus rhythm with a bradycardic heart rate of 52 beats a minute, first-degree AV block, right bundle branch block, T waves inverted inferiorly and laterally. Similar to previous. No acute LA confirmed with Dr. Perdomo. EKG 2: Attestation: I personally reviewed and interpreted this EKG as follows: EKG interpretation date: 12/03/19 EKG interpretation time: 00:07 Interpretation: Normal sinus rhythm at 54 beats a minute, no further first-degree block, incomplete right bundle branch block, no acute ST-T wave changes. Similar to previous. Discharge Plan Discharge Patient Disposition: Home, Self-Care Clinical Impression: Acute kidney injury superimposed on chronic kidney disease Abdominal pain Qualifiers: Abdominal location: generalized Qualified Code(s): R10.84 - Generalized abdominal pain Condition: Stable Prescriptions: No Action glipizide 5 mg tablet 5 mg PO DAILY RF: 0 Lantus Solostar U-100 Insulin 100 unit/mL (3 mL) insulin pen See Rx Instructions SUBCUT .COMPLEX RF: 0 Miralax 17 gram powder in packet 17 g PO .prn RF: 0 sennosides-docusate sodium 8.6-50 mg tablet 1 tab PO .prn RF: 0 nitrofurantoin monohyd/m-cryst [Macrobid] 100 mg capsule 100 mg PO BID Qty: 60 RF: 2 potassium chloride 10 mEq Tablet Extended Release 20 meq PO DAILY Qty: 30 RF: 0 clopidogrel 75 mg Tablet 75 mg PO DAILY Qty: 30 RF: 0 bumetanide 1 mg Tablet 1 mg PO DAILY Qty: 30 RF: 0 Dexilant 60 mg capsule,biphase delayed releas 60 mg PO DAILY Qty: 30 RF: 0 Eliquis 5 mg Tablet 2.5 mg PO BID Qty: 30 RF: 0 fentanyl 50 mcg/hr patch 72 hour 50 mcg topical Q72H Qty: 10 RF: 0 Zofran 4 mg Tablet 4 mg PO BID PRN (Reason: Nausea) Qty: 30 RF: 0 nifedipine 30 mg Tablet Extended Release 30 mg PO DAILY Qty: 30 RF: 0 levothyroxine 50 mcg tablet 50 mcg PO DAILY Qty: 30 RF: 0 sertraline 25 mg tablet 25 mg PO DAILY Qty: 30 RF: 0 gabapentin 100 mg capsule 100 mg PO BEDTIME Qty: 30 RF: 0 rosuvastatin 20 mg tablet 20 mg PO BEDTIME Qty: 30 RF: 0 acetaminophen 325 mg capsule 325 mg PO QID PRN (Reason: fever or mild pain) Qty: 30 RF: 0 Discharge Orders: Discharge Order (Routine); Ordered 12/03/19 Ordered By: Adelita Javed Referrals: Betsy Nuno DO [Primary Care Provider] - 1-3 days Discharge Diet: Advance as tolerated Discharge Activity: Increase activity as tolerated Patient Instructions: Abdominal Pain (ED) Activity Restrictions/Additional Instructions: Please return to the ER immediately for any of the signs or symptoms listed on your discharge instruction sheets, worsening/changing of your symptoms, you are not getting better as quickly as expected, or for ANY other cause or concerns. I have recommended and offered further evaluation and care to include admission to evaluate your kidney function further but you have refused. If your symptoms change or worsen, you have return of your abdominal pain, began to vomit, or you have any other concerns please return to the ER immediately for recheck. Be certain to follow-up with Dr. kristina christianson as soon as possible to recheck your kidney function. Push oral fluids as much as you can at home to keep your kidney function from declining. Hold your potassium at least 1 day before resuming. Stand Alone Forms: Against Medical Advice Coding Level of Care Code ED Bench Tool Maker for Chg Fwd Exam Comprehensive
[2019-12-02 20:23] LABS: Basophils % 0.7 %; Eosinophils # 0.2 10^3/uL (0.0-0.8); Eosinophils % 3.3 %; Hematocrit 30.9 % (37.0-47.0); Hemoglobin 9.8 g/dL (11.5-15.3); Lymphocytes # 1.3 10^3/uL (0.8-4.8); Lymphocytes % 21.4 %; Mean Corpuscular HGB Conc 31.7 g/dL (30.0-36.0); Mean Corpuscular Hemoglobin 30.3 pg (28.0-34.0); Mean Corpuscular Volume 95.7 fL (81-99); Mean Platelet Volume 10.3 fL (7.4-10.4); Monocytes # 0.7 10^3/uL (0.2-0.9); Monocytes % 10.9 %; Neutrophils # 3.9 10^3/uL (1.8-7.7); Nucleated Red Blood Cells % 0 %; Platelet Count 157 10^3/cmm (130-400); Red Blood Count 3.23 10^6/uL (4.1-5.3); Red Cell Distribution Width 18.2 % (12.1-15.1); White Blood Count 6.1 10^3/uL (4.0-10.0)
[2019-12-02] MEDS: ondansetron 2 mg/ML SDV 2 mL 4 MG IVP (20:24)
[2019-12-02] MEDS: morphine 4 mg/mL SDV 1 mL IVP (20:27)
[2019-12-02] MEDS: sodium chloride 0.9% 1,000 ML 100 ML IV (20:29)
[2019-12-02 20:37] LABS: Alanine Aminotransferase 10 U/L (0-33); Albumin Level 4.4 g/dL (3.5-5.2); Alkaline Phosphatase 104 IU/L (35-105); Anion Gap 17.9 (5-19); Aspartate Amino Transferase 14 U/L (0-32); Blood Urea Nitrogen 51 mg/dL (8-23); Calcium 9.6 mg/dL (8.5-10.5); Carbon Dioxide 23 mmol/L (22-29); Chloride 100 mmol/L (98-107); Globulin 3.1 g/dL (1.3-4.6); Glomerular Filtration Rate 12.5 mL/min (90-130); Glucose 82 mg/dL (65-115); Lipase 22 U/L (13-60); Magnesium 2.3 mg/dL (1.7-2.3); Osmolality Calculated 277 mOsm/kg (285-295); Potassium 5.9 mmol/L (3.5-5.1); Sodium 135 mmol/L (136-145); Total Bilirubin 0.5 mg/dL (0.15-1.2); Total Protein 7.5 g/dL (6.6-8.7)
[2019-12-02 20:38] LABS: Lactic Sepsis W/Reflex 0.7 mmol/L (0.5-2.2)
--- NOTE | 2019-12-02 20:45 | ECG_ITS ---
[facility] ED Test Date: 2019-12-02 Pat Name: Fantasma Montalvo Department: Room: Gender: Female Psychiatric Rn: : 1950 Requested By: Adelita Barajas Order Number: [id number] Maribell MD: Ludin Perdomo M.D. Measurements Intervals [place] Rate: 52 P: 51 [place]: 235 QRS: -4 QRSD: 141 T: -30 QT: 438 QTc: 408 Interpretive Statements SINUS BRADYCARDIA WITH FIRST DEGREE AV BLOCK INTRAVENTRICULAR CONDUCTION DELAY [130+ ms QRS DURATION] ANTEROLATERAL MYOCARDIAL INFARCTION [40+ ms Q WAVE IN I/aVL/V3-V6] Compared to ECG 09/15/2019 23:57:31 Sinus rhythm no longer present Myocardial infarct finding still present Electronically Signed On 12-03-2019 7:55:06 CDT by Ludin Perdomo M.D. [email or web address]
--- NOTE | 2019-12-02 20:45 | CTR_ITS ---
PROCEDURE INFORMATION: Exam: CT Abdomen And Pelvis Without Contrast Exam date and time: 12/02/2019 8:50 PM Age: 68 years old Clinical indication: Bloating; Prior surgery; Surgery type: Bilat hip, hyst, umbilical hernia, cardiac cath; Additional info: Abdominal pain TECHNIQUE: Imaging protocol: Computed tomography of the abdomen and pelvis without contrast. Radiation optimization: All CT scans at this facility use at least one of these dose optimization techniques: automated exposure control; mA and/or kV adjustment per patient size (includes targeted exams where dose is matched to clinical indication); or iterative reconstruction. COMPARISON: No relevant prior studies available. RADIATION DOSE METRICS: Total DLP (mGy-cm): 1761.64 FINDINGS: Lungs: There is subpleural atelectasis of the dependent portions of the lungs. There is also probable basilar fibrosis. Liver: Unremarkable.No mass. Gallbladder and bile ducts: Multiple calcified gallstones are present. There is no wall thickening or pericholecystic fluid to suggest cholecystitis. There is no common bile duct dilation. Pancreas: Normal. No ductal dilation. Spleen: Normal. No splenomegaly. Adrenals: Normal. No mass. Kidneys and ureters: There are bilateral renal vascular calcifications. No definite nephrolithiasis. No hydronephrosis. Stomach and bowel: There is abundant colonic stool compatible with constipation but no impaction. There is no evidence of colitis/diverticulitis. There is no evidence of intestinal perforation or obstruction. Appendix: No evidence of appendicitis. Intraperitoneal space: Unremarkable. No free air. No significant fluid collection. Vasculature: The aorta demonstrates moderate atherosclerotic calcification. Lymph nodes: Unremarkable.No enlarged lymph nodes. Bladder: The bladder is normal. Reproductive: There has been a hysterectomy. Bones/joints: There is artifact from the bilateral hip arthroplasties. There is osteopenia with severe degenerative changes in the spine and pelvis. Soft tissues: Postoperative changes of a abdominal hernia repair are noted. Other findings: There is mild dependent edema. There is levoscoliosis. CT/CT abdomen pelvis wo con [id number] IMPRESSION: 1. There is abundant colonic stool compatible with constipation but no impaction. 2. No acute abnormality. Radiation Dose CTDIVOL = (mGy): DLP = 1761.64 (mGy-cm)
[2019-12-02 20:50] LABS: INR 1.03 (0.8-1.2); Partial Thromboplastin Time 29.2 SECONDS (23.9-36.7)
[2019-12-02 21:04] LABS: H. Pylori IgG Antibody Negative (Negative)
[2019-12-02 21:40] LABS: Bilirubin Urine Neg (NEGATIVE); Blood Urine Neg (Negative); Glucose Urine UA 4+ (Normal); Ketones Urine Negative (Negative); Leukocyte Esterase Urine Negative (Negative); Nitrate Urine Negative (Negative); Protein Urine Neg (Negative); RBC Urine 0-4 /hpf (0-2); Specific Gravity, Urine 1.025 (1.005-1.030); Urine Appearance Clear (CLEAR); Urine Color Yellow (Yellow); Urobilinogen Urine Norm (Negative); pH Urine 5 (5-7)
[2019-12-02 21:41] LABS: Add Urine Culture? No; Bacteria Urine TRACE; Squamous Epithelial Cell Urine 15-25 (0-5); Transitional Epi Cells Urine 0-4 /hpf
[2019-12-02 22:01] LABS: Troponin(5th) Baseline 56 ng/L (0-10)
[2019-12-02 22:45] LABS: Troponin 5 2HR 52.28 ng/L (0-10)
[2019-12-02 22:51] LABS: Troponin 5 2HR Delta -3.72 ABS# (0-10)
[2019-12-02 23:27] LABS: Anion Gap 18.4 (5-19); Blood Urea Nitrogen 51 mg/dL (8-23); Calcium 9.2 mg/dL (8.5-10.5); Carbon Dioxide 22 mmol/L (22-29); Chloride 102 mmol/L (98-107); Glucose 73 mg/dL (65-115); Osmolality Calculated 281 mOsm/kg (285-295); Potassium 5.4 mmol/L (3.5-5.1); Sodium 137 mmol/L (136-145)
--- NOTE | 2019-12-02 23:30 | ECG_ITS ---
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 Measurements Intervals [place] Rate: 54 P: -9 WV: 203 QRS: 41 QRSD: 133 T: -28 QT: 449 QTc: 427 Interpretive Statements SINUS BRADYCARDIA INTRAVENTRICULAR CONDUCTION DELAY [130+ ms QRS DURATION] LATERAL MYOCARDIAL INFARCTION [40+ ms Q WAVE AND/OR ST/T ABNORMALITY IN I/aVL/V5/V6], OF INDETERMINATE AGE Incomplete right bundle branch block Compared to ECG 12/02/2019 21:20:40 First degree AV block no longer present Myocardial infarct finding still present Electronically Signed On 12-03-2019 7:57:32 CDT by Ludin Perdomo M.D. [id number]
[2019-12-03] VITALS (75 sets, daily range): BP systolic 146–176; BP diastolic 46–76; PULSE 53–69; RESP 10–20; O2SAT 87–98
--- NOTE | 2019-12-03 01:09 | PC.NURSE ---
Linens and gown changed.
[2019-12-03] MEDS: sodium chloride 0.9% 1,000 ML 100 ML IV (01:48)
--- NOTE | 2019-12-03 02:12 | PC.NURSE ---
Transportation being arranged for patient.
== END 2019-12-03 08:35 | disposition home or self-care (01) ==
PROVIDERS: Emergency Provider Emergency Medicine; PCP Family Medicine
DX: I13.0 Hypertensive heart and chronic kidney disease with heart failure and stage 1 through stage 4 chronic kidney disease, or unspecified chronic kidney disease (principal); E11.22 Type 2 diabetes mellitus with diabetic chronic kidney disease; N18.9 Chronic kidney disease, unspecified; I50.9 Heart failure, unspecified; N17.9 Acute kidney failure, unspecified; Z79.4 Long term (current) use of insulin; Z79.01 Long term (current) use of anticoagulants; Z79.02 Long term (current) use of antithrombotics/antiplatelets; I48.91 Unspecified atrial fibrillation; I25.10 Atherosclerotic heart disease of native coronary artery without angina pectoris; E78.5 Hyperlipidemia, unspecified; Z87.891 Personal history of nicotine dependence
CPT/HCPCS: 12345; 74176; 80048; 80053; 81001; 83605; 83690; 83735; 84484; 85025; 85610; 85730; 86677; 93005; 96361; 96374; 96375; 99284; J2270; J2405; J7030

== ENCOUNTER → 2019-12-15 15:43 | Outpatient (BNVA) | payer MEDICARE, MEDICAID, SELFPAY | PROVIDERS: PCP Family Medicine; Visit Provider Urology | DX: N39.0 Urinary tract infection, site not specified (principal); N39.41 Urge incontinence; R33.9 Retention of urine, unspecified | CPT/HCPCS: 81001 ==

== ENCOUNTER 2020-01-05 09:18 | Inpatient (IN) | payer MEDICARE, MEDICAID, SELFPAY ==
[2020-01-05] VITALS (9 sets, daily range): BP systolic 108–171; BP diastolic 46–87; PULSE 57–80; RESP 14–21; TEMP 36.6–36.9; O2SAT 92–98; BMI 40.4
--- NOTE | 2020-01-05 09:32 | XR_ITS ---
WS: [id number] PORTABLE CHEST HISTORY: chest pain COMPARISON: 10/04/2019 Lungs are clear and well expanded. No pleural effusion or pneumothorax. Cardiac size: Normal. Mediastinum/Aorta: Normal mediastinum. LEFT glenohumeral joint arthritis. XR/XR chest 1V portable [id number] IMPRESSION: Unremarkable portable chest.
--- NOTE | 2020-01-05 09:32 | ECG_ITS ---
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 Measurements Intervals [place] Rate: 73 P: 119 NE: 256 QRS: 69 QRSD: 141 T: -45 QT: 412 QTc: 455 Interpretive Statements SINUS RHYTHM WITH MARKED SINUS ARRHYTHMIA WITH FIRST DEGREE AV BLOCK INTRAVENTRICULAR CONDUCTION DELAY [130+ ms QRS DURATION] ANTEROLATERAL MYOCARDIAL INFARCTION , OF INDETERMINATE AGE [40+ ms Q WAVE IN I/aVL/V3-V6] Compared to ECG 12/03/2019 00:07:39 First degree AV block now present Sinus bradycardia no longer present Incomplete right bundle-branch block no longer present Myocardial infarct finding still present Electronically Signed On 01-05-2020 20:31:39 CDT by Emily Rome M.D. [id number]
--- NOTE | 2020-01-05 09:35 | ED_ITS ---
HPI - Chest Pain General: Chief Complaint: Chest Pain Stated Complaint: CHEST PAIN Time Seen by Provider: 01/05/20 09:34 History of Present Illness: HPI narrative: 69 yo female presents with complaint of episode of chest pain this morning that began while she was her S/P unless her chest radiated to the right side of her chest she had a little bit of dyspnea and some mild nausea also rated into the left side of her neck. Resolved after about 15 or 20 minutes when she arrived here she is pain-free she did have a STEMI earlier this year in early September those notes were reviewed and expands. He is not having any pain at this time. MD complaint: chest pain Pertinent past history: coronary artery disease Onset (ago): hour(s) Timing of current episode: episodic Prior episodes: Yes Onset: during rest Pain location: substernal Pain radiation: jaw/teeth and other (Right side of the chest) Severity: moderate Quality: heaviness Relieving factors: rest Exacerbating factors: nothing Associated symptoms: Reports dyspnea and nausea; Deny fever(s) Treatment prior to arrival: none Review of Systems Const: Denies: fever(s), chills, body aches, change in appetite, fatigue or malaise ENMT: Denies: throat pain, ear or mastoid pain, nasal discharge or nasal congestion Card: Reports: chest pain and dyspnea on exertion; Denies: edema or orthopnea Resp: Reports: dyspnea GI: Reports: nausea : Denies: flank pain, difficulty voiding, dysuria, urinary frequency or urinary urgency Skin/Breast: Denies: rash or pruritus [facility] ED PFSH: Medical History (Updated 01/05/20 @ 13:54 by Jony Cuello DO) Aortic stenosis Atrial fibrillation by electrocardiogram CAD (coronary artery disease) CHF (congestive heart failure) Dental caries Diabetes DJD (degenerative joint disease) Gastroenteritis GERD (gastroesophageal reflux disease) HTN (hypertension) Hypercholesterolemia Hyperlipidemia Recurrent UTI Rhabdomyolysis Urinary incontinence Surgical History History of cardiac catheterization History of hernia repair History of hip surgery History of hysterectomy History of knee surgery History of sinus surgery History of tonsillectomy History of umbilical hernia repair Family History Father , in his 60's Lung disease Mother , 99 Hypertension Other Diabetes Stroke Denies family history of CAD (coronary artery disease) Clotting disorder Dementia Chronic kidney disease (CKD) Social History Smoking and tobacco status: never smoked Quit status (tobacco): has quit using tobacco Former quit date comment: Smoking in her 20s Alcohol intake: never Caregiver/support person: Yes (Home health services Friday) Lives independently: Yes Housing: House Marital status: Current occupational status: retired History of recent travel: No Current gender identity: Female Physical Exam Const: COMMON NORMALS: no acute distress GENERAL APPEARANCE: cooperative and comfortable ORIENTATION/CONSCIOUSNESS: Yes awake, Yes oriented to person, Yes oriented to place and Yes oriented to time HENMT: COMMON NORMALS: normocephalic, atraumatic, hearing grossly normal bilaterally, external ears normal, EAC's normal, TM's normal bilaterally, Normal nasal mucous membranes and turbinates present, moist oral mucous membranes and oropharynx normal HEAD & SCALP: normocephalic and atraumatic NOSE: Normal nasal mucous membranes and turbinates present EXTERNAL EAR: Yes external ears normal EXTERNAL AUDITORY CANAL: EAC's normal TYMPANIC MEMBRANE: TM's normal bilaterally Eye: COMMON NORMALS: Equal, round and reactive pupils present, EOMs intact bilaterally, conjunctivae normal and no scleral icterus CONJUNCTIVA: Yes conjunctivae normal PUPIL: Yes Equal, round and reactive pupils present Neck/C-Spine: COMMON NORMALS: full ROM, no lymphadenopathy, supple and no JVD Lymph: LYMPHATIC: no lymphadenopathy noted and no lymphedema noted Resp: COMMON NORMALS: normal respiratory effort, No retractions, No use of accessory muscles and clear to auscultation bilaterally AUSCULTATION: clear to auscultation bilaterally Cardio: COMMON NORMALS: no JVD, regular rate, regular rhythm and No murmurs present (Cardio) RATE: regular rate RHYTHM: regular rhythm GI: COMMON NORMALS: Soft to palpation and No hepatosplenomegaly present AUSCULTATION: Yes normoactive bowel sounds PALPATION: Yes Soft to palpation, No Tenderness to palpation present (GI), No Guarding due to palpation present (GI) and Yes No hepatosplenomegaly present Extremity: COMMON NORMALS: normal to inspection, capillary refill normal, no clubbing, cyanosis or edema, no calf tenderness and no pedal edema Neuro: SENSORIUM/ORIENTATION: Yes oriented to person, Yes oriented to place and Yes oriented to time Skin: COMMON NORMALS: no rashes or lesions noted GENERAL SKIN EXAM: no rashes or lesions noted Course Vital Signs: Vital signs: Vital Signs Temperature 98.4 F 01/05/20 09:35 Pulse Rate 80 01/05/20 09:35 Respiratory Rate 18 01/05/20 09:35 Blood Pressure 171/87 01/05/20 09:35 Pulse Oximetry 97 01/05/20 09:35 MDM - Chest Pain MDM Narrative: Medical decision making narrative: Troponin in the 680s her usual baseline is around 50. We will go ahead and admit. Discussed with Dr. Nagel. Additionally we have discussed with Dr. Perdomo who will see her as an outpatient consult. She does have some mild acute kidney injury. And mild anemia. Dr. Nagel has written orders. Lab Data: Attestation: I reviewed the patient's lab results. Labs: Lab Results 01/05/20 01/05/20 01/05/20 Range/Units 09:40 09:40 09:40 WBC 6.9 (4.0-10.0) 10^3/ uL RBC 3.25 L (4.1-5.3) 10^6/u L Hgb 10.1 L (11.5-15.3) g/dL Hct 32.0 L (37.0-47.0) % MCV 98.5 (81-99) fL MCH 31.1 (28.0-34.0) pg MCHC 31.6 (30.0-36.0) g/dL RDW 16.3 H (12.1-15.1) % Plt Count 192 (130-400) 10^3/c mm MPV 10.5 H (7.4-10.4) fL Neut % (Auto) 70.6 % Lymph % (Auto) 16.6 % [place] % (Auto) 9.8 % Eos % (Auto) 2.0 % Baso % (Auto) 0.6 % Neut # (Auto) 4.85 (1.8-7.7) 10^3/u L Lymph # (Auto) 1.1 (0.8-4.8) 10^3/u L [place] # (Auto) 0.7 (0.2-0.9) 10^3/u L Eos # (Auto) 0.1 (0.0-0.8) 10^3/u L Baso # (Auto) 0.0 (0.0-0.1) 10^3/u L Nucleated RBC % (a uto) 0 % Nucleated RBCs # 0.0 /100WBC Sodium 138 (136-145) mmol/L Potassium 4.3 (3.5-5.1) mmol/L Chloride 100 (98-107) mmol/L Carbon Dioxide 25 (22-29) mmol/L Anion Gap 17.3 (5-19) BUN 50 H (8-23) mg/dL Creatinine 1.6 H (0.5-0.9) mg/dL GFR Calculation 31.9 L (90-130) mL/min Glucose 238 H (65-115) mg/dL Calculated Osmolal ity 292 (285-295) mOsm/k g Calcium 9.3 (8.5-10.5) mg/dL Total Bilirubin 0.6 (0.15-1.2) mg/dL AST 19 (0-32) U/L ALT 11 (0-33) U/L Alkaline Phosphata se 108 H (35-105) IU/L Troponin T Baselin e 688 H* (0-10) ng/L Troponin T 120 Min minto (0-10) ng/L Delta Troponin T (0-10) ABS# Total Protein 7.2 (6.6-8.7) g/dL Albumin 4.1 (3.5-5.2) g/dL Globulin 3.1 (1.3-4.6) g/dL 01/05/20 Range/Units 11:47 WBC (4.0-10.0) 10^3/ uL RBC (4.1-5.3) 10^6/u L Hgb (11.5-15.3) g/dL Hct (37.0-47.0) % MCV (81-99) fL MCH (28.0-34.0) pg MCHC (30.0-36.0) g/dL RDW (12.1-15.1) % Plt Count (130-400) 10^3/c mm MPV (7.4-10.4) fL Neut % (Auto) % Lymph % (Auto) % [place] % (Auto) % Eos % (Auto) % Baso % (Auto) % Neut # (Auto) (1.8-7.7) 10^3/u L Lymph # (Auto) (0.8-4.8) 10^3/u L [place] # (Auto) (0.2-0.9) 10^3/u L Eos # (Auto) (0.0-0.8) 10^3/u L Baso # (Auto) (0.0-0.1) 10^3/u L Nucleated RBC % (a uto) % Nucleated RBCs # /100WBC Sodium (136-145) mmol/L Potassium (3.5-5.1) mmol/L Chloride (98-107) mmol/L Carbon Dioxide (22-29) mmol/L Anion Gap (5-19) BUN (8-23) mg/dL Creatinine (0.5-0.9) mg/dL GFR Calculation (90-130) mL/min Glucose (65-115) mg/dL Calculated Osmolal ity (285-295) mOsm/k g Calcium (8.5-10.5) mg/dL Total Bilirubin (0.15-1.2) mg/dL AST (0-32) U/L ALT (0-33) U/L Alkaline Phosphata se (35-105) IU/L Troponin T Baselin e (0-10) ng/L Troponin T 120 Min minto 689.5 H (0-10) ng/L Delta Troponin T 1.5 (0-10) ABS# Total Protein (6.6-8.7) g/dL Albumin (3.5-5.2) g/dL Globulin (1.3-4.6) g/dL EKG Data^: EKG 1: EKG interpretation date: 01/05/20 EKG interpretation time: 09:40 Prior EKG tracings: available for review Ischemic changes: non-specific ST-T wave changes Interpretation: EKG shows interventricular conduction delay with Q waves in 2 3 and aVF also have inverted T waves in those same leads. There is repolarization changes in aVF as well as lead II due to the interventricular conduction delay. Rate is 73 NC interval shows a first-degree AV block. Is also the intercurrent interventricular conduction delay as previously noted no other no acute ST changes were noted. 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
[2020-01-05 09:46] LABS: Basophils % 0.6 %; Eosinophils # 0.1 10^3/uL (0.0-0.8); Hemoglobin 10.1 g/dL (11.5-15.3); Lymphocytes # 1.1 10^3/uL (0.8-4.8); Lymphocytes % 16.6 %; Mean Corpuscular HGB Conc 31.6 g/dL (30.0-36.0); Mean Corpuscular Hemoglobin 31.1 pg (28.0-34.0); Mean Corpuscular Volume 98.5 fL (81-99); Mean Platelet Volume 10.5 fL (7.4-10.4); Monocytes # 0.7 10^3/uL (0.2-0.9); Monocytes % 9.8 %; Neutrophils # 4.85 10^3/uL (1.8-7.7); Neutrophils % 70.6 %; Nucleated Red Blood Cells % 0 %; Platelet Count 192 10^3/cmm (130-400); Red Blood Count 3.25 10^6/uL (4.1-5.3); Red Cell Distribution Width 16.3 % (12.1-15.1); White Blood Count 6.9 10^3/uL (4.0-10.0)
[2020-01-05 10:11] LABS: Alanine Aminotransferase 11 U/L (0-33); Albumin Level 4.1 g/dL (3.5-5.2); Alkaline Phosphatase 108 IU/L (35-105); Anion Gap 17.3 (5-19); Aspartate Amino Transferase 19 U/L (0-32); Blood Urea Nitrogen 50 mg/dL (8-23); Calcium 9.3 mg/dL (8.5-10.5); Carbon Dioxide 25 mmol/L (22-29); Chloride 100 mmol/L (98-107); Creatinine Clr Calc Pharmacy 46.8552; Globulin 3.1 g/dL (1.3-4.6); Glomerular Filtration Rate 31.9 mL/min (90-130); Glucose 238 mg/dL (65-115); Osmolality Calculated 292 mOsm/kg (285-295); Potassium 4.3 mmol/L (3.5-5.1); Sodium 138 mmol/L (136-145); Total Bilirubin 0.6 mg/dL (0.15-1.2); Total Protein 7.2 g/dL (6.6-8.7)
[2020-01-05 10:16] LABS: Troponin(5th) Baseline 688 ng/L (0-10)
--- NOTE | 2020-01-05 11:32 | ECG_ITS ---
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 Measurements Intervals [place] Rate: 80 P: 47 MO: 282 QRS: 68 QRSD: 145 T: -52 QT: 409 QTc: 472 Interpretive Statements SINUS RHYTHM WITH FIRST DEGREE AV BLOCK RIGHT BUNDLE BRANCH BLOCK [120+ ms QRS DURATION, UPRIGHT V1, 40+ ms S IN I/aVL/V4/V5/V6] ANTERIOR MYOCARDIAL INFARCTION , OF INDETERMINATE AGE [40+ ms Q WAVE AND/OR ST/T ABNORMALITY IN V3/V4] INFERIOR MYOCARDIAL INFARCTION , OF INDETERMINATE AGE [40+ ms Q WAVE AND/OR ST/T ABNORMALITY IN II/aVF] Compared to ECG 01/05/2020 09:40:20 Right bundle-branch block now present Sinus arrhythmia no longer present Intraventricular conduction delay no longer present Myocardial infarct finding still present Electronically Signed On 01-05-2020 20:38:21 CDT by Emily Rome M.D. [id number]
[2020-01-05] MEDS: nitroglycerin 1 gm/inch oint Pkt 0.5 INCH TOPICAL (11:33)
[2020-01-05 12:06] LABS: Troponin 5 2HR Delta 1.5 ABS# (0-10)
--- NOTE | 2020-01-05 12:24 | PM.HP ---
Providers/Chief Complaint Admitting Physician: Isabella Nagel DO Primary Care Provider: Betsy Nuno DO Chief Complaint: CHEST PAIN History of Present Illness Fantasma Montalvo is a 69 year old female with a past medical history of coronary artery disease, hypertension, hyperlipidemia, chronic kidney disease, congestive heart failure and atrial fibrillation as well as aortic stenosis that presented to the emergency department for chest pain. She stated that her pain occurred while she was lying in bed. She stated that it started on the left side of her chest felt as a heaviness and then began spreading to the right side of her chest and into her left neck. She stated that she has a very bad memory and she does not remember what her symptoms felt like earlier this spring when she had a heart attack and required intervention. She reported that she is followed by Dr. Estrada in the outpatient setting. She reports that she has not taken her medications this morning but has not missed any medications other than today due to being in the emergency department. Patient denies any recent fever or chills, no cough or sputum production, no hemoptysis. She stated that she did have a little bit of epigastric pain but that is resolved. She states that she now has pain that stays persistent in the left side of her chest that is about a 2 out of 3 out of 10. She denies any aggravating or alleviating factors. Did not take any nitroglycerin at home just called EMS for further evaluation and treatment. Patient denies any shortness of breath, diaphoresis or palpitations with onset of pain this morning. Patient was seen and evaluated in the emergency department noted to have concern for non-ST elevation AK and admitted for further evaluation and treatment. Cardiology was consulted while patient was in the ED. Review of Systems Const: Denies: fever(s) or chills Eyes: Denies: change in vision ENMT: Denies: nasal congestion Card: Reports: chest pain and edema (Trace edema in the lower extremities that is improved); Denies: palpitations Resp: Denies: dyspnea, productive cough or hemoptysis GI: Denies: abdominal pain, nausea, vomiting, diarrhea, constipation, hematochezia or melena : Reports: other (Chronic UTI); Denies: dysuria or hematuria Musc: Denies: extremity pain or muscle cramps Skin/Breast: Denies: rash or new lesions Neuro: Denies: headache(s) or dizziness Psych: Denies: anxiety or depression Endo: Denies: polyuria or hot flashes Francois/Lymph: Denies: easy bruising or easy bleeding Medications/Allergies Home Medications Medication Instructions Recorded Confirmed Last Taken Type Eliquis 2.5 mg PO BID #30 tab 10/04/19 01/05/20 09/05/19 Rx acetaminophen 325 mg PO QID PRN #30 cap 10/04/19 01/05/20 Unknown Rx clopidogrel 75 mg PO DAILY #30 tab 10/04/19 01/05/20 01/04/20 Rx dexlansoprazole [Dexilant] 60 mg PO DAILY #30 cap 10/04/19 01/05/20 Unknown Rx fentanyl 50 mcg TOPICAL Q72H #10 ea 10/04/19 01/05/20 01/03/20 Rx gabapentin 100 mg PO BEDTIME #30 cap 10/04/19 01/05/20 Unknown Rx levothyroxine 50 mcg PO DAILY #30 tab 10/04/19 01/05/20 01/04/20 Rx nifedipine 30 mg PO DAILY #30 tab 10/04/19 01/05/20 01/04/20 Rx ondansetron HCl [Zofran] 4 mg PO BID PRN #30 tab 10/04/19 01/05/20 Unknown Rx rosuvastatin 20 mg PO BEDTIME #30 tab 10/04/19 01/05/20 01/04/20 Rx sertraline 25 mg PO DAILY #30 tab 10/04/19 01/05/20 01/04/20 Rx glipizide 5 mg tablet 5 mg PO DAILY 11/12/19 01/05/20 Unknown History insulin glargine 100 unit/mL (3 See Rx Instructions SUBCUT 11/12/19 01/05/20 01/04/20 History mL) subcutaneous pen .COMPLEX ml polyethylene glycol 3350 17 gram 17 g PO DAILY PRN each 11/12/19 01/05/20 Unknown History oral powder packet sennosides 8.6 mg-docusate sodium 1 tab PO DAILY PRN tab 11/12/19 01/05/20 Unknown History 50 mg tablet nitrofurantoin 100 mg PO BID #60 cap 12/15/19 01/05/20 01/04/20 Rx monohydrate/macrocrystals 100 mg capsule bumetanide 2 mg PO DAILY 01/05/20 01/05/20 01/04/20 History cephalexin 500 mg PO BID 01/05/20 01/05/20 01/04/20 History isosorbide mononitrate 30 mg PO DAILY 01/05/20 01/05/20 01/04/20 History metoprolol tartrate 50 mg PO DAILY 01/05/20 01/05/20 01/04/20 History potassium chloride 10 meq PO DAILY 01/05/20 01/05/20 01/04/20 History Allergies Allergy/AdvReac Type Severity Reaction Status Date / Time duloxetine [From Cymbalta] Allergy Unknown Verified 01/04/20 13:37 prochlorperazine Allergy ALGY-Anaphy Verified 01/04/20 13:37 [From Compazine] laxis sucralfate [From Carafate] Allergy Unknown Verified 01/04/20 13:37 trazodone Allergy Unknown Verified 01/04/20 13:37 zaleplon [From Sonata] Allergy Unknown Verified 01/04/20 13:37 PFSH Acute PFSH: Medical History (Updated 01/05/20 @ 12:34 by Isabella Nagel DO) Aortic stenosis Atrial fibrillation by electrocardiogram CAD (coronary artery disease) CHF (congestive heart failure) Dental caries Diabetes DJD (degenerative joint disease) Gastroenteritis GERD (gastroesophageal reflux disease) HTN (hypertension) Hypercholesterolemia Hyperlipidemia Recurrent UTI Rhabdomyolysis Urinary incontinence Surgical History History of cardiac catheterization History of hernia repair History of hip surgery History of hysterectomy History of knee surgery History of sinus surgery History of tonsillectomy History of umbilical hernia repair Family History Father , in his 60's Lung disease Mother , 99 Hypertension Other Diabetes Stroke Denies family history of CAD (coronary artery disease) Clotting disorder Dementia Chronic kidney disease (CKD) Social History Smoking and tobacco status: never smoked Quit status (tobacco): has quit using tobacco Former quit date comment: Smoking in her 20s Alcohol intake: never Caregiver/support person: Yes (Home health services Friday) Lives independently: Yes Housing: House Marital status: Current occupational status: retired History of recent travel: No Current gender identity: Female Vitals/I&O/Wt Last Vital Signs Temp 98.4 F 01/05/20 09:35 Pulse 80 01/05/20 09:35 Resp 18 01/05/20 09:35 BP 171/87 01/05/20 09:35 Pulse Ox 97 01/05/20 09:35 Weight last 48 hrs Weight 90.718 kg Physical Exam Const: COMMON NORMALS: patient oriented x3 and alert GENERAL APPEARANCE: cooperative ORIENTATION/CONSCIOUSNESS: Yes awake, Yes oriented to person, Yes oriented to place and Yes oriented to time HENMT: COMMON NORMALS: normocephalic and atraumatic HEAD & SCALP: normocephalic and atraumatic Eye: COMMON NORMALS: Equal, round and reactive pupils present PUPIL: Yes Equal, round and reactive pupils present Neck/C-Spine: COMMON NORMALS: supple GENERAL: Yes normal visual inspection Resp: COMMON NORMALS: normal respiratory effort and clear to auscultation bilaterally EFFORT & INSPECTION: Yes able to speak in complete sentences AUSCULTATION: clear to auscultation bilaterally, no rhonchi and no wheezes Cardio: COMMON NORMALS: regular rate and regular rhythm RATE: regular rate RHYTHM: regular rhythm HEART SOUNDS: Murmur heart sound present systolic GI: COMMON NORMALS: Soft to palpation and non-tender INSPECTION: No abdominal distension AUSCULTATION: Yes normoactive bowel sounds PALPATION: Yes Soft to palpation Extremity: COMMON NORMALS: no calf tenderness NARRATIVE EXTREMITY EXAM: Trace nonpitting edema in the lower extremities bilaterally, negative Homans sign in the lower extremities bilaterally Neuro: COMMON NORMALS: patient oriented x3, CN's II-XII intact bilaterally, moves all extremities and no focal motor deficits SENSORIUM/ORIENTATION: Yes alert, Yes oriented to person, Yes oriented to place and Yes oriented to time SPEECH: speech normal Psych: COMMON NORMALS: mental status grossly normal and cooperative Skin: COMMON NORMALS: no rashes or lesions noted GENERAL SKIN EXAM: no rashes or lesions noted Data : 01/05/20 09:40 01/05/20 09:40 A&P Assessment and plan (1) NSTEMI (non-ST elevated myocardial infarction): Admit to cardiac stepdown unit Serial EKG and troponin Significant elevation in troponin from her prior baseline Consult to cardiology, Dr. Perdomo. Appreciate recommendations and assistance in patient's care Patient had recent cardiac cath on 09/06/[address] Estrada. Noted to have severe coronary artery disease with three-vessel disease, first diagonal coronary artery was treated with balloon, RCA treated with 2 balloon and drug-eluting stent. Heparin drip started at this time, home Eliquis on hold Nitropaste has relieved chest pain Continue on statin, Imdur, metoprolol, Plavix, aspirin PRISCILLA as needed for pain Status: Acute (2) CAD (coronary artery disease): With recent stenting in August, followed by Dr. Estrada Status: Acute (3) Chronic anemia: Hemoglobin improved from prior admissions, no evidence of any active bleeding at this time Status: Acute (4) Aortic stenosis: Chronic aortic stenosis Status: Acute Qualifiers: Cardiac valve disease etiology: nonrheumatic Qualified Code(s): I35.0 - Nonrheumatic aortic (valve) stenosis (5) Grade II diastolic dysfunction: Appears to be euvolemic at this time, will continue to monitor closely. Patient is on Bumex 2 mg daily at baseline Status: Acute (6) Diabetes: Will place on sliding scale insulin as needed Patient reports taking weekly injection of glycemic agent yesterday Status: Acute Qualifiers: Diabetes mellitus type: type 2 Additional A&P Information Chronic kidney disease: Creatinine appears to be at baseline, UA ordered and pending Chronic urinary tract infections with history of ESBL E. coli UTI, followed by Dr. Dodd, currently on cephalexin Chronic pain on daily opioids: on fentanyl patch Neuropathy: Continue gabapentin Hypothyroidism: We will check TSH and continue home levothyroxine History of atrial fibrillation: Hold Eliquis at this time and started on heparin On chronic anticoagulation, Eliquis on hold and continuing on heparin DVT prophylaxis: Heparin Diet: NPO Code status: FUll code, patient would not want prolonged resuscitative measures Attestations Medical Necessity Statement*: Patient requires hospitalization due to concern for non-ST elevation AK, expected stay greater than 2 midnights Coding Level of Care Code Acute [facility] Coordinator for [facility] Fwd Diagnoses NSTEMI (non-ST elevated myocardial infarction) I21.4 CAD (coronary artery disease) I25.10 Chronic anemia D64.9 Aortic stenosis I35.0 Cardiac valve disease etiology: nonrheumatic Grade II diastolic dysfunction I51.9 Diabetes E11.9 Diabetes mellitus type: type 2
[2020-01-05 12:31] LABS: Troponin 5 2HR 689.5 ng/L (0-10)
--- NOTE | 2020-01-05 14:40 | USCV_ITS ---
Katia Fantasma Age: 69 Gender: F : 1950 Exam Date: 01/05/2020 16:36 Ordering Phys: Isabella Nagel DO Technologist: Lizzette Carrero [place] [facility] [place]ication: nstemi, chf, chest pain BP: 166 / 77 HR: 61 Rhythm: Sinus Technical Quality: Adequate MEASUREMENTS (Male / Female) Normal Values 2D ECHO LV Diastolic Diameter PLAX 4.5 cm 4.2 - 5.9 / 3.9 - 5.3 cm LV Systolic Diameter PLAX 3.5 cm IVS Diastolic Thickness 1.4 cm 0.6 - 1.0 / 0.6 - 0.9 cm IVS Systolic Thickness 1.8 cm LVPW Diastolic Thickness 1.0 cm 0.6 - 1.0 / 0.6 - 0.9 cm LVPW Systolic Thickness 1.2 cm LVOT Diameter 2.0 cm LV Ejection Fraction 2D Teich 44.7 % LV Ejection Fraction MOD 2C 72.2 % LV Ejection Fraction 2C AL 72.0 % LA Diameter 3.5 cm LA Width 3.8 cm LA Height 5.5 cm RA Width 2.9 cm RA Height 4.0 cm M-MODE LV Diastolic Diameter MM 5.2 cm 4.2 - 5.9 / 3.9 - 5.3 cm LV Systolic Diameter MM 3.0 cm LV Ejection Fraction MM Teich 72.6 % IVS Diastolic Thickness MM 0.6 cm 0.6 - 1.0 / 0.6 - 0.9 cm IVS Systolic Thickness MM 1.3 cm LVPW Diastolic Thickness MM 0.8 cm 0.6 - 1.0 / 0.6 - 0.9 cm LVPW Systolic Thickness MM 1.5 cm Aortic Annulus Diameter 2.5 cm LA Ao Ratio MM 1.4 MV E Point Septal Separation 1.0 cm DOPPLER AV Peak Velocity 238.0 cm/s LVOT Peak Velocity 122.0 cm/s AV Area Cont Eq vti 1.7 cm squared AV Area Cont Eq pk 1.6 cm squared MV Peak Velocity 145.0 cm/s MV Area PHT 3.2 cm squared Mitral E to A Ratio 1.5 MV E' Velocity 6.0 cm/s Mitral E to MV E' Ratio 22.2 Mitral E to LV E' Lateral Ratio 22.6 Mitral E to LV E' Septal Ratio 22.2 TR Peak Velocity 266.0 cm/s TR Peak Gradient 28.2 mmHg Right Atrial Pressure 3.0 mmHg Pulmonary Artery Systolic Pressu 31.3 mmHg PV Peak Velocity 147.0 cm/s RV Acceleration Time 0.1 s FINDINGS Left Ventricle Normal left ventricular cavity size. Normal left ventricular systolic function. No regional wall motion abnormalities. Left ventricular ejection fraction is estimated at 60 %. Grade II/IV diastolic dysfunction, moderately elevated filling pressures. Right Ventricle The right ventricle is normal in size and function. Right Atrium The right atrium is normal in size. Left Atrium The left atrium is normal in size. Mitral Valve Severely thickened mitral valve. Severe mitral annular calcification. No mitral valve stenosis. Moderate mitral valve regurgitation. Aortic Valve Severe aortic valve calcification. Moderate aortic valve stenosis, mean gradient 9.6 mmHg, HERNANDEZ 1.7 cm trace aortic valve regurgitation. Tricuspid Valve Mild tricuspid valve regurgitation. Pulmonic Valve Structurally normal pulmonic valve without significant stenosis. There is no pulmonic regurgitation. Pericardium Normal pericardium without effusion. Aorta Normal ascending aorta dimension. CONCLUSIONS 1-Normal left ventricular cavity size. Normal left ventricular systolic function. No regional wall motion abnormalities. Left ventricular ejection fraction is estimated at 60 %. Grade II/IV diastolic dysfunction, moderately elevated filling pressures. 2-Severely thickened mitral valve. Severe mitral annular calcification. No mitral valve stenosis. Moderate mitral valve regurgitation. 3-Severe aortic valve calcification. Moderate aortic valve stenosis, mean gradient 9.6 mmHg, HERNANDEZ 1.7 cm trace aortic valve regurgitation. 4-Mild tricuspid valve regurgitation. 5-There is no pericardial effusion. 6-Right atrial pressure is around 5 mm of mercury. 7-No significant change since the prior echocardiogram study of. 08/20/19 Ruchi Estrada MD (Electronically Signed) Final Date: 05 January 2020 22:18 S
--- NOTE | 2020-01-05 15:14 | PC.NURSE ---
Heparin gtt Loading dose clarified with Dr. Nagel. Dr. Nagel gave telephone order to not administer a loading dose of heparin but to start the gtt at 14 kg/ml/hr. RBVO. Wait further orders for cardiology consult.
[2020-01-05] MEDS: heparin drip 25,000 UNIT/500 ML PREMIX 26 UNIT IV (15:22)
[2020-01-05] MEDS: potassium chloride ER 10 mEq Tablet PO (15:23)
[2020-01-05] MEDS: metoprolol tartrate 50 mg Tablet PO (15:23)
[2020-01-05] MEDS: clopidogrel 75 mg Tablet PO (15:23)
[2020-01-05] MEDS: levothyroxine 50 mcg Tablet PO (15:24)
[2020-01-05] MEDS: bumetanide 1 mg Tablet 2 MG PO (15:24)
[2020-01-05] MEDS: sertraline 50 mg Tablet 25 MG PO (15:24)
[2020-01-05] MEDS: isosorbide mononitrate ER 30 mg Tablet PO (15:25)
--- NOTE | 2020-01-05 15:32 | ECG_ITS ---
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 Measurements Intervals [place] Rate: 63 P: UT: -1 QRS: 45 QRSD: 145 T: -31 QT: 436 QTc: 449 Interpretive Statements Sinus rhythm with second-degree type I AV block RIGHT BUNDLE BRANCH BLOCK [120+ ms QRS DURATION, UPRIGHT V1, 40+ ms S IN I/aVL/V4/V5/V6] Compared to ECG 01/05/2020 12:03:41 Sinus rhythm no longer present First degree AV block no longer present Myocardial infarct finding no longer present Electronically Signed On 01-05-2020 20:40:29 CDT by Emily Rome M.D. [id number]
[2020-01-05] MEDS: fentaNYL 50 mcg Patch 1 PATCH TRANSDERMA (15:35)
--- NOTE | 2020-01-05 15:40 | PC.NURSE ---
Patient arrived to floor from ER at 1450. Patient required SBA to transfer from wheelchair to bed. Patient incontinent, brief was changed. Patient denies chest pain at this time. Patient A&O. Nurse clarified if home meds were taken before coming to the hospital. Patient stated they were not. IV to L AC patient states was placed by EMS. IV flushes and returns blood appropriately. Patient oriented to room and call light. Bed in low locked position. No needs identified at this time.
[2020-01-05 16:01] LABS: INR 1.05 (0.8-1.2)
[2020-01-05 16:18] LABS: Thyroid Stimulating Hormone 1.33 uIU/mL (0.27-4.20)
[2020-01-05 16:19] LABS: Glucose Point of Care 186 mg/dL (70-110)
[2020-01-05 16:25] LABS: Troponin 5 6HR 794.4 ng/L (0-10); Troponin 5 6HR Delta 106.4 ng/L (0-12)
--- NOTE | 2020-01-05 16:27 | PC.NURSE ---
critical lab notification Dr. singh notified of 6hr trop levels and delta no new instructions.
--- NOTE | 2020-01-05 16:27 | PM.CONSULT ---
Providers/Reason For Consult Consulting Physican/Specialty*: Cardiovascular medicine Reason for Consult*: Elevated troponin Attending Physician: Isabella Nagel DO Primary Care Provider: Betsy Nuno DO History of Present Illness History of Present Illness Fantasma Montalvo is a 69 year old female who has had an eventful several months. She was admitted late last evening early this morning with chest pain which is atypical however first troponin was 688. We were asked to see her primarily because of the troponin elevation. She has had a busy several months here in the hospital. She was admitted on 18 August with some chest discomfort which was fairly atypical. A stress test showed an old myocardial infarction and minor sathya-infarct ischemia in the distribution of the right coronary artery. Her echo at the time showed mild aortic stenosis with an EF of 55%. She was treated medically. She came back to the hospital on 04 September with a STEMI alert. She underwent angiography at that time with a angioplasty of the first diagonal and a stent placed to the right coronary artery. Several days later and not surprisingly she had contrast-induced nephropathy. Her creatinine went to 6.0. She came very close to requiring dialysis. Nephrology saw her during that visit. She came back to the hospital on September 30 with a urinary tract infection, pyelonephritis, sepsis and mental status changes as a result of this. The culture grew Escherichia coli. She was here till the . She was back in the emergency room on 01 December and was sent home. Today she came back to the hospital with chest discomfort. It was fairly atypical described as a sharp left-sided chest pain which migrated across the middle of her chest toward the right. It was not associated with other symptoms. She took a nitroglycerin but cannot remember whether or not it helped. She talked to her caregiver who then spoke with her brother. Her brother asked the caregiver to call the ambulance. She was brought in by ambulance. Her creatinine is now down to 1.6. She has a glomerular filtration rate of 30 mL/min. Her EKG reveals sinus rhythm with PACs with an old inferolateral NV and a right bundle branch block. This is unchanged from previous tracings. Originally a STEMI alert was called today but the emergency room physician called that off. Her second troponin is 689 and the third is 794. Her chest x-ray is unremarkable. Her potassium is 5.4. Her clotting studies are normal. The pain went away by the time she got to the emergency room. She is still free of any discomfort at this time. Review of Systems General: Reports: 10 or more systems reviewed and unremarkable except in HPI and below Meds/Allergies Home Medications and Allergies Home Medications Medication Instructions Recorded Confirmed Last Taken Type Eliquis 2.5 mg PO BID #30 tab 10/04/19 01/05/20 09/05/19 Rx acetaminophen 325 mg PO QID PRN #30 cap 10/04/19 01/05/20 Unknown Rx clopidogrel 75 mg PO DAILY #30 tab 10/04/19 01/05/20 01/04/20 Rx dexlansoprazole [Dexilant] 60 mg PO DAILY #30 cap 10/04/19 01/05/20 Unknown Rx fentanyl 50 mcg TOPICAL Q72H #10 ea 10/04/19 01/05/20 01/03/20 Rx gabapentin 100 mg PO BEDTIME #30 cap 10/04/19 01/05/20 Unknown Rx levothyroxine 50 mcg PO DAILY #30 tab 10/04/19 01/05/20 01/04/20 Rx nifedipine 30 mg PO DAILY #30 tab 10/04/19 01/05/20 01/04/20 Rx ondansetron HCl [Zofran] 4 mg PO BID PRN #30 tab 10/04/19 01/05/20 Unknown Rx rosuvastatin 20 mg PO BEDTIME #30 tab 10/04/19 01/05/20 01/04/20 Rx sertraline 25 mg PO DAILY #30 tab 10/04/19 01/05/20 01/04/20 Rx glipizide 5 mg tablet 5 mg PO DAILY 11/12/19 01/05/20 Unknown History insulin glargine 100 unit/mL (3 See Rx Instructions SUBCUT 11/12/19 01/05/20 01/04/20 History mL) subcutaneous pen .COMPLEX ml polyethylene glycol 3350 17 gram 17 g PO DAILY PRN each 11/12/19 01/05/20 Unknown History oral powder packet sennosides 8.6 mg-docusate sodium 1 tab PO DAILY PRN tab 11/12/19 01/05/20 Unknown History 50 mg tablet nitrofurantoin 100 mg PO BID #60 cap 12/15/19 01/05/20 01/04/20 Rx monohydrate/macrocrystals 100 mg capsule bumetanide 2 mg PO DAILY 01/05/20 01/05/20 01/04/20 History cephalexin 500 mg PO BID 01/05/20 01/05/20 01/04/20 History isosorbide mononitrate 30 mg PO DAILY 01/05/20 01/05/20 01/04/20 History metoprolol tartrate 50 mg PO DAILY 01/05/20 01/05/20 01/04/20 History potassium chloride 10 meq PO DAILY 01/05/20 01/05/20 01/04/20 History Allergies Allergy/AdvReac Type Severity Reaction Status Date / Time duloxetine [From Cymbalta] Allergy Unknown Verified 01/04/20 13:37 prochlorperazine Allergy ALGY-Anaphy Verified 01/04/20 13:37 [From Compazine] laxis sucralfate [From Carafate] Allergy Unknown Verified 01/04/20 13:37 trazodone Allergy Unknown Verified 01/04/20 13:37 zaleplon [From Sonata] Allergy Unknown Verified 01/04/20 13:37 Current Medications Current Medications Generic Name Dose Route Start Last Admin Trade Name Freq PRN Reason Stop Dose Admin Bumetanide 2 mg 01/05/20 14:40 01/05/20 15:24 Bumex PO 2 mg DAILY PINA Administration Clopidogrel Bisulfate 75 mg 01/05/20 14:40 01/05/20 15:23 Plavix PO 75 mg DAILY PINA Administration Fentanyl 1 patch 01/05/20 14:40 01/05/20 15:35 Duragesic 50 Mcg Patch TRANSDERMA 1 patch Q72H PINA Administration Heparin Sodium/Sodium Chloride 25,000 unit in 500 mls @ 0 mls/hr 01/05/20 14:40 01/05/20 15:22 Heparin Drip IV 14.33 unit/kg/hr .Q0M PINA 26 mls/hr Administration Protocol Per Protocol Isosorbide Mononitrate 30 mg 01/05/20 14:40 01/05/20 15:25 Imdur PO 30 mg DAILY PINA Administration Levothyroxine Sodium 50 mcg 01/05/20 14:40 01/05/20 15:24 Synthroid PO 50 mcg DAILY PINA Administration Metoprolol Tartrate 50 mg 01/05/20 14:40 01/05/20 15:23 Lopressor PO 50 mg DAILY PINA Administration Potassium Chloride 10 meq 01/05/20 14:40 01/05/20 15:23 Klor-Con 10 PO 10 meq DAILY PINA Administration Sertraline HCl 25 mg 01/05/20 14:40 01/05/20 15:24 Zoloft PO 25 mg DAILY PINA Administration PFSH Acute PFSH: Medical History (Updated 01/05/20 @ 16:33 by Ludin Perdomo MD) Anticoagulation adequate with anticoagulant therapy Aortic stenosis Atrial fibrillation by electrocardiogram CAD (coronary artery disease) CHF (congestive heart failure) Dental caries Diabetes DJD (degenerative joint disease) Gastroenteritis GERD (gastroesophageal reflux disease) HTN (hypertension) Hypercholesterolemia Hyperlipidemia Morbid obesity Recurrent UTI Rhabdomyolysis Urinary incontinence Surgical History History of cardiac catheterization History of hernia repair History of hip surgery History of hysterectomy History of knee surgery History of sinus surgery History of tonsillectomy History of umbilical hernia repair Family History Father , in his 60's Lung disease Mother , 99 Hypertension Other Diabetes Stroke Denies family history of CAD (coronary artery disease) Clotting disorder Dementia Chronic kidney disease (CKD) Social History Smoking and tobacco status: never smoked Quit status (tobacco): has quit using tobacco Former quit date comment: Smoking in her 20s Alcohol intake: never Caregiver/support person: Yes (Home health services Friday) Lives independently: Yes Housing: House Marital status: Current occupational status: retired History of recent travel: No Current gender identity: Female Vitals/I&O/Wt Last Vital Signs Temp 98.4 F 01/05/20 14:22 Pulse 70 01/05/20 15:00 Resp 19 H 01/05/20 15:00 BP 166/77 01/05/20 15:00 Pulse Ox 98 01/05/20 16:12 Weight last 48 hrs Weight 200 lb Physical Exam Narrative: EXAM NARRATIVE: GENERAL: In general she looks and feels well HEENT: Exam within normal limits. NECK: Supple without jugular vein distention. The carotid upstroke is normal without bruits. BACK: Exam normal. LUNGS: Clear. HEART: Regular rate and rhythm. ABDOMEN: Benign without organomegaly or tenderness. EXTREMITIES: No edema. NEUROLOGIC: Exam normal. SKIN: Unremarkable. A&P Assessment and plan (1) CAD (coronary artery disease): Status: Acute (2) NSTEMI (non-ST elevated myocardial infarction): Status: Acute (3) Normocytic anemia: Status: Acute (4) Diabetes: Status: Acute (5) Aortic stenosis: Status: Acute Qualifiers: Cardiac valve disease etiology: nonrheumatic Qualified Code(s): I35.0 - Nonrheumatic aortic (valve) stenosis (6) Atrial fibrillation by electrocardiogram: Status: Acute (7) Chest pain: Status: Acute (8) Atrial flutter: Status: Acute (9) Grade II diastolic dysfunction: Status: Acute (10) Heart failure with preserved ejection fraction: Status: Acute Qualifiers: Heart failure chronicity: chronic Qualified Code(s): I50.32 - Chronic diastolic (congestive) heart failure (11) Morbid obesity: Status: Acute (12) Anticoagulation adequate with anticoagulant therapy: Status: Acute Additional A&P Information She has had another myocardial infarction. The question is where is the origin. One would assume that it is either the diagonal or the right that was intervened on in August however given her underlying comorbidities and risk factors anything is possible. The real question is how to proceed from this point forward. If she is exposed to contrast material again she will almost certainly have contrast-induced nephropathy again. We may not get away with at this time like we did the last time which may cause her to require dialysis. Since she is stable I will continue to treat her medically this evening. I will let Dr. Estrada know tomorrow. My approach would be to perform a stress test and stratify her risk and use angiography as a last resort. 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[facility] Patient Type New History Detailed Exam Detailed Medical Decision Making Moderate Complexity Diagnoses CAD (coronary artery disease) I25.10 NSTEMI (non-ST elevated myocardial infarction) I21.4 Normocytic anemia D64.9 Diabetes E11.9 Aortic stenosis I35.0 Cardiac valve disease etiology: nonrheumatic Atrial fibrillation by electrocardiogram I48.91 Chest pain R07.9 Atrial flutter I48.92 Grade II diastolic dysfunction I51.9 Heart failure with preserved ejection fraction I50.32 Heart failure chronicity: chronic Morbid obesity E66.01 Anticoagulation adequate with anticoagulant therapy Z79.01
[2020-01-05] MEDS: nitrofurantoin SR (BID) 100 mg Capsule PO (17:16)
[2020-01-05] MEDS: cephALEXin 500 mg Capsule PO (17:16)
--- NOTE | 2020-01-05 19:02 | PC.NURSE ---
Physician notification Dr. Nagel notified of Dr. Perdomo's recommendation to take the patient to stress test tomorrow. Dr. Nagel gave telephone order to schedule the patient for a lexiscan in the morning, RBVO. Nurse to put in orders and schedule stress test.
[2020-01-05] MEDS: atorvastatin 40 mg Tablet 80 MG PO (19:46)
[2020-01-05] MEDS: gabapentin 100 mg Capsule PO (19:46)
[2020-01-05 19:47] LABS: Glucose Point of Care 141 mg/dL (70-110)
--- NOTE | 2020-01-05 19:57 | PC.NURSE ---
Patient does not have any complaints at this time. Patient has been educated to her call light when she needs to get up in order for us to assist her to prevent fall. Patient states that she is incontinent of urine at times. Will monitor.
[2020-01-05 21:37] LABS: Partial Thromboplastin Time 106.9 SECONDS (23.9-36.7)
[2020-01-06] VITALS (10 sets, daily range): BP systolic 99–189; BP diastolic 44–78; PULSE 51–74; RESP 14–21; TEMP 36.6–36.9; O2SAT 94–931
--- NOTE | 2020-01-06 04:12 | PC.NURSE ---
Patient stated that her legs were really itchy and request that SCDs be taken off. Dr. Malloy notified. Yunior davenport.
[2020-01-06] MEDS: diphenhydrAMINE 25 mg Capsule PO (04:27)
--- NOTE | 2020-01-06 04:38 | PC.NURSE ---
Contacted lab due to awaiting PTT results. Lab states it is running and the results will be back soon.
[2020-01-06 04:45] LABS: Basophils % 0.6 %; Eosinophils # 0.2 10^3/uL (0.0-0.8); Eosinophils % 3.4 %; Hematocrit 29.3 % (37.0-47.0); Hemoglobin 9.1 g/dL (11.5-15.3); Lymphocytes # 1.9 10^3/uL (0.8-4.8); Lymphocytes % 31.2 %; Mean Corpuscular HGB Conc 31.1 g/dL (30.0-36.0); Mean Corpuscular Hemoglobin 30.8 pg (28.0-34.0); Mean Corpuscular Volume 99.3 fL (81-99); Mean Platelet Volume 11.5 fL (7.4-10.4); Monocytes # 0.7 10^3/uL (0.2-0.9); Monocytes % 11.1 %; Neutrophils % 53.1 %; Nucleated Red Blood Cells % 0 %; Platelet Count 178 10^3/cmm (130-400); Red Blood Count 2.95 10^6/uL (4.1-5.3); Red Cell Distribution Width 16.7 % (12.1-15.1); White Blood Count 6.2 10^3/uL (4.0-10.0)
[2020-01-06 05:05] LABS: Partial Thromboplastin Time 96.8 SECONDS (23.9-36.7)
[2020-01-06 05:20] LABS: Blood Urea Nitrogen 58 mg/dL (8-23); Calcium 9.1 mg/dL (8.5-10.5); Carbon Dioxide 26 mmol/L (22-29); Chloride 101 mmol/L (98-107); Glomerular Filtration Rate 29.7 mL/min (90-130); Glucose 123 mg/dL (65-115); Osmolality Calculated 288 mOsm/kg (285-295); Sodium 139 mmol/L (136-145)
[2020-01-06 05:43] LABS: Chol HDL Ratio 2.19 mg/dL (0.0-4.40); Cholesterol 116 mg/dL (0-200); HDL Cholesterol 53 mg/dL (60-100); LDL Cholesterol Calculated 48 mg/dL (50-129); LDL HDL Ratio 0.91 RATIO (0.00-3.22); Triglycerides 73 mg/dL (0-150)
--- NOTE | 2020-01-06 06:00 | ECG_ITS ---
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 Interpretive Statements NAME OF STUDY: LEXISCAN SESTAMIBI STRESS TEST INDICATION: Chest Pain PROCEDURE: At the baseline, the blood pressure was 130/63 mmHg with a heart rate of 50 bpm. The electrocardiogram showed sinus bradycardia. Right bundle branch block. Nonspecific T wave abnormality in lead III and aVF. The Lexiscan was infused over a period of 20 seconds. A total of 0.4 milligrams of Lexiscan was infused. The stress phase was continued for a total of 5 minutes. Heart rate at the end of the stress phase was 60 bpm with a blood pressure 130/66 mmHg. The EKG at the peak infusion revealed no significant ST-T wave changes. Sestamibi was injected 20 seconds after the Lexiscan infusion. Blood pressure at the end of the recovery phase was 137/67 mmHg with a heart rate of 64 beats per minute. CONCLUSION: 1. No significant EKG changes with the LexiScan infusion. 2. No LexiScan induced chest pain or cardiac arrhythmia. 3. Normal blood pressure and heart rate response. 4. Sestamibi/sestamibi perfusion scan pending; see separate report. Electronically Signed On 01-14-2020 16:58:50 CDT by Patricia Morelos M.D. [id number]
[2020-01-06 06:53] LABS: Glucose Point of Care 154 mg/dL (70-110)
[2020-01-06] MEDS: regadenoson 0.4 Mg/5 ml Syringe IVP (08:20)
--- NOTE | 2020-01-06 10:00 | PC.NURSE ---
Patient arrived back to room from stress test. Patient denies any CP or SOB. PT working with patient. Patient sitting in a chair. Patient bradycardic but other VS WNL. Dr. Nagel notified patient back to floor.
[2020-01-06] MEDS: cephALEXin 500 mg Capsule PO ×2 (10:21→17:01)
[2020-01-06] MEDS: nitrofurantoin SR (BID) 100 mg Capsule PO ×2 (10:22→17:01)
[2020-01-06] MEDS: pantoprazole DR 40 mg Tablet PO (10:22)
[2020-01-06] MEDS: bumetanide 1 mg Tablet 2 MG PO (10:22)
[2020-01-06] MEDS: potassium chloride ER 10 mEq Tablet PO (10:23)
[2020-01-06] MEDS: clopidogrel 75 mg Tablet PO (10:23)
[2020-01-06] MEDS: sertraline 50 mg Tablet 25 MG PO (10:24)
[2020-01-06] MEDS: levothyroxine 50 mcg Tablet PO (10:24)
[2020-01-06] MEDS: isosorbide mononitrate ER 30 mg Tablet PO (10:24)
[2020-01-06] MEDS: NIFEdipine ER (24 hr) 30 mg Tablet PO (10:26)
[2020-01-06] MEDS: heparin 5,000 unit/mL INJ 1 mL 5000 UNIT SUBCUT ×2 (10:27→15:27)
--- NOTE | 2020-01-06 10:28 | PC.NURSE ---
Metoprolol Patient HR low 50s-60. Dr. Nagel notified. Physician instructed nurse to hold morning metoprolol dose.
[2020-01-06 11:28] LABS: Glucose Point of Care 190 mg/dL (70-110)
--- NOTE | 2020-01-06 12:59 | PM.PN ---
Subjective Subjective: Interval history: Patient awake and eating lunch at time of exam today. She reported that she is feeling much better today, no chest pain, no shortness of breath, no lightheadedness or dizziness. She stated that she is concerned that she does not have classic symptoms for heart attack when she has had her heart attack in the past. Has been relatively asymptomatic with prior heart attack except for extreme fatigue. Patient reported that she did well with stress test without any significant concerns. Discussed echocardiogram results and plan for today, she verbalized understanding. Vitals/I&O/Wt Last Vital Signs Temp 97.8 F 01/06/20 07:01 Pulse 58 L 01/06/20 11:00 Resp 20 H 01/06/20 11:00 BP 142/66 01/06/20 11:00 Pulse Ox 96 01/06/20 11:00 01/05/20 01/06/20 01/06/20 22:59 06:59 14:59 Intake Total 648.133 / 648.133 552.667 / 1200.800 269.4 / 269.4 Balance 648.133 / 648.133 552.667 / 1200.800 269.4 / 269.4 Weight last 48 hrs Weight 93.621 kg Weight 90.718 kg Physical Exam Const: COMMON NORMALS: patient oriented x3 and alert GENERAL APPEARANCE: cooperative ORIENTATION/CONSCIOUSNESS: Yes awake, Yes oriented to person, Yes oriented to place and Yes oriented to time HENMT: COMMON NORMALS: normocephalic and atraumatic HEAD & SCALP: normocephalic and atraumatic Eye: COMMON NORMALS: Equal, round and reactive pupils present PUPIL: Yes Equal, round and reactive pupils present Neck/C-Spine: COMMON NORMALS: supple GENERAL: Yes normal visual inspection Resp: COMMON NORMALS: normal respiratory effort and clear to auscultation bilaterally EFFORT & INSPECTION: Yes able to speak in complete sentences AUSCULTATION: clear to auscultation bilaterally, no rhonchi and no wheezes Cardio: COMMON NORMALS: regular rate and regular rhythm RATE: regular rate RHYTHM: regular rhythm HEART SOUNDS: Murmur heart sound present systolic GI: COMMON NORMALS: Soft to palpation and non-tender INSPECTION: No abdominal distension AUSCULTATION: Yes normoactive bowel sounds PALPATION: Yes Soft to palpation Extremity: COMMON NORMALS: no calf tenderness NARRATIVE EXTREMITY EXAM: Trace nonpitting edema in the lower extremities bilaterally, negative Homans sign in the lower extremities bilaterally Neuro: COMMON NORMALS: patient oriented x3, CN's II-XII intact bilaterally, moves all extremities and no focal motor deficits SENSORIUM/ORIENTATION: Yes alert, Yes oriented to person, Yes oriented to place and Yes oriented to time SPEECH: speech normal Psych: COMMON NORMALS: mental status grossly normal and cooperative Skin: COMMON NORMALS: no rashes or lesions noted GENERAL SKIN EXAM: no rashes or lesions noted Data : 01/06/20 04:18 01/06/20 04:18 A&P Assessment and plan (1) NSTEMI (non-ST elevated myocardial infarction): Telemetry and monitoring on cardiac stepdown Patient's troponin remained relatively flat, cardiology recommended further evaluation with stress test. Patient kept n.p.o. and stress test performed today. We will follow-up with cardiology recommendations once test returns Patient had prior cardiac intervention and developed contrast-induced nephropathy, therefore we will continue to monitor cautiously Patient chest pain-free this morning Continue on current cardiac medications Discontinued heparin drip Discussed with Dr. Estrada today, will follow-up once stress test results returned Status: Acute (2) CAD (coronary artery disease): With recent stenting in August, followed by Dr. Estrada Status: Acute (3) Chronic anemia: Hemoglobin stable, no evidence of any active bleeding at this time Status: Acute (4) Aortic stenosis: Chronic aortic stenosis, moderate Status: Acute Qualifiers: Cardiac valve disease etiology: nonrheumatic Qualified Code(s): I35.0 - Nonrheumatic aortic (valve) stenosis (5) Grade II diastolic dysfunction: Appears to be euvolemic at this time, will continue to monitor closely. Patient is on Bumex 2 mg daily at baseline Status: Acute (6) Diabetes: Will place on sliding scale insulin as needed Patient reports taking weekly injection of glycemic agent Friday Status: Acute Additional A&P Information Bradycardia: Hold metoprolol if heart rate remains less than 60, decrease dose of metoprolol to 25 mg twice daily from 50 mg twice daily Chronic kidney disease: Creatinine appears to be at baseline Chronic urinary tract infections with history of ESBL E. coli UTI, followed by Dr. Dodd, currently on cephalexin Chronic pain on daily opioids: on fentanyl patch Neuropathy: Continue gabapentin Hypothyroidism: TSH within normal limits and continue home levothyroxine History of atrial fibrillation: Hold Eliquis until determination of need for any type of cardiac intervention On chronic anticoagulation, Eliquis on hold and continuing on heparin DVT prophylaxis: Heparin Diet: Cardiac, carbohydrate consistent diet Code status: FUll code, patient would not want prolonged resuscitative measures Attestations Medical Necessity Statement*: Hospitalization due to non-ST elevation [place] Coding Level of Care Code 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
--- NOTE | 2020-01-06 13:30 | PC.NURSE ---
Physician notification Patient alerted asystole on the nihon and exhibited a 3 second pause. Patient found sleeping in the chair. VS stable. Patient resumed sinus cate, Hr 50. Patient denies CP or any abnormal feelings. Dr. Nagel notified. No new orders received. Nurse called Dr. Estrada, voicemail left.
--- NOTE | 2020-01-06 14:06 | ECG_ITS ---
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 Measurements Intervals [place] Rate: 55 P: 237 WV: 255 QRS: 48 QRSD: 144 T: -3 QT: 464 QTc: 445 Interpretive Statements SINUS BRADYCARDIA WITH FIRST DEGREE AV BLOCK RIGHT BUNDLE BRANCH BLOCK [120+ ms QRS DURATION, UPRIGHT V1, 40+ ms S IN I/aVL/V4/V5/V6] ANTERIOR MYOCARDIAL INFARCTION [40+ ms Q WAVE AND/OR ST/T ABNORMALITY IN V3/V4], OF INDETERMINATE AGE INFERIOR MYOCARDIAL INFARCTION [40+ ms Q WAVE AND/OR ST/T ABNORMALITY IN II/aVF], PROBABLY OLD Compared to ECG 01/05/2020 16:03:40 First degree AV block now present Myocardial infarct finding now present Sinus rhythm no longer present Electronically Signed On 01-06-2020 17:07:45 CDT by Ludin Perdomo M.D. [id number]
--- NOTE | 2020-01-06 14:10 | PC.NURSE ---
Patient had another pause measuring 3.5 seconds. Patient reassessed. Patient was sleeping during event. Patient asymptomatic, VS WNL. Dr. Nagel notified. Physician gave telephone order for stat EKG and troponins. Dr. Estrada notified via telephone. Physician ordered for metoprolol to be put on hold, continue to monitor patient. RBVO.
[2020-01-06 15:31] LABS: Troponin T (5th) Once 1011 ng/L (0-10)
[2020-01-06 16:47] LABS: Glucose Point of Care 99 mg/dL (70-110)
--- NOTE | 2020-01-06 19:01 | NMCV_ITS ---
NM luis alfredo perf SPECT r/s* [id number] Fantasma Montalvo Age: 69 Gender: F : 1950 Exam Date: 01/06/2020 07:18 Ordering Phys: Isabella Nagel DO Technologist: JEY Coates Exam Location: [facility] Indications: Chest pain STRESS TEST Please see separate stress test report in [facility] for full findings IMAGE PROTOCOL Rest/Stress 1 Lexiscan Day Radiopharmaceutical Dose (mCi) Administration Site Administered by Rest: Tc-99m 11.0 IV JEY Byrne Sestamibi Stress:Tc-99m 32.9 IV JEY Coates Sestamikaren Rest: 06-Jan-2020 60 Discovery 630 Stress: 06-Jan-2020 60 Discovery 630 0.4mg Lexiscan. Supine position only as patient was unable to lay prone. SPECT RESULTS Technical Quality: Good Raw Data Analysis: Breast attenuation, Soft tissue attenuation Image Corrections: No attenuation or motion correction applied Summed Stress Score: 27 Summed Rest Score: 20 Summed Difference Score: 7 PERFUSION FINDINGS Large size perfusion abnormality of severe severity of entire inferior, basal to mid inferolateral, apical lateral and apical watters on rest images with mild reversibility noted in mid anterolateral, apical septal and apical anterior watters on supine stress images. FUNCTIONAL RESULTS (calculated via Gated SPECT) Stress Image LV EF (%): 52 Stress EDV (mL):89 TID: 0.98 Stress ESV (mL):43 FUNCTIONAL FINDINGS: The left ventricle is normal in size. Transient Ischemia Dilatation of 0.98. There is normal left ventricular systolic function. The left ventricular ejection fraction is normal with a value of 52%. There is hypokinesis of entire inferior, inferolateral and apical watters. Normal end-diastolic and end-systolic volumes. IMPRESSIONS 1. Large sized perfusion abnormality of severe severity of entire inferior, basal to mid inferolateral, apical lateral and apical watters with mild reversibility noted in mid anterolateral, apical septal and apical anterior watters. 2. This likely represents old myocardial infarction/scarring in right coronary artery territory and circumflex artery territory with mild sathya-infarct ischemia in circumflex and left anterior descending artery territory. 3. The left ventricular ejection fraction is normal with a value of 52%. 4. There is hypokinesis of entire inferior, inferolateral and apical watters. 5. Scan indicates low to moderate risk for cardiac events. Patricia Morelos MD (Electronically Signed) Final Date: 06 January 2020 15:34 S
--- NOTE | 2020-01-06 19:23 | P.PN_ITS ---
Subjective Subjective: Interval history: Patient denies any chest pain. Stress test showed inferior inferolateral old infarction with mild sathya-infarct ischemia. Vitals/I&O/Wt Last Vital Signs Temp 97.9 F 01/06/20 17:03 Pulse 57 L 01/06/20 16:00 Resp 16 01/06/20 16:00 BP 124/58 01/06/20 16:00 Pulse Ox 98 01/06/20 16:00 01/06/20 01/06/20 01/06/20 06:59 14:59 22:59 Intake Total 552.667 / 1200.800 269.4 / 269.4 240 / 509.4 Balance 552.667 / 1200.800 269.4 / 269.4 240 / 509.4 Weight last 48 hrs Weight 206 lb 6.4 oz Weight 200 lb Physical Exam Narrative: EXAM NARRATIVE: GENERAL: Patient is alert, awake and oriented x3. NECK: No jugular vein distension. HEENT: No cyanosis. No icterus. No pallor. HEART: Irregularly irregular S1 and S2. No murmur, rub or gallop. LUNGS: Clear to auscultate bilaterally. ABDOMEN: Soft, nontender and nondistended. Positive bowel sounds. No guarding, rebound or tenderness. CENTRAL NERVOUS SYSTEM: Grossly nonfocal. EXTREMITIES: Lower extremities without edema bilaterally. Data : 01/06/20 04:18 01/06/20 04:18 A&P Assessment and plan (1) NSTEMI (non-ST elevated myocardial infarction): Stress test showed old myocardial infarction in the inferior inferolateral region otherwise no significant ischemia. Patient is stable denies any chest pain she is not in heart failure we will continue to treat her medically and conservatively as she is very high risk for contrast-induced nephropathy I have detailed discussion with the patient and she would like to be treated medically. Continue optimizing medicine we cannot further optimize beta-gato since patient has bradycardia I will increase isosorbide mononitrate to 30 mg twice a day. Status: Acute (2) Atrial fibrillation by electrocardiogram: Patient is rate controlled however becoming bradycardic had few episodes of 3 to 3.5-second pauses. Beta-gato is on hold we will monitor her Status: Acute (3) Aortic stenosis: Stable. Continue to monitor Status: Acute Qualifiers: Cardiac valve disease etiology: nonrheumatic Qualified Code(s): I35.0 - Nonrheumatic aortic (valve) stenosis (4) Chest pain: No more chest pain. Patient is stable Status: Acute Qualifiers: Chest pain type: precordial pain Qualified Code(s): R07.2 - Precordial pain (5) Heart failure with preserved ejection fraction: Well compensated. Continue current regimen Status: Acute Qualifiers: Heart failure chronicity: chronic Qualified Code(s): I50.32 - Chronic diastolic (congestive) heart failure (6) Morbid obesity: Status: Acute (7) Anticoagulation adequate with anticoagulant therapy: Status: Acute (8) Normocytic anemia: Status: Acute Additional A&P Information She has had another myocardial infarction. The question is where is the origin. One would assume that it is either the diagonal or the right that was intervened on in August however given her underlying comorbidities and risk factors anything is possible. The real question is how to proceed from this point forward. If she is exposed to contrast material again she will almost certainly have contrast-induced nephropathy again. We may not get away with at this time like we did the last time which may cause her to require dialysis. Since she is stable I will continue to treat her medically this evening. I will let Dr. Estrada know tomorrow. My approach would be to perform a stress test and stratify her risk and use angiography as a last resort. Attestations Medical Necessity Statement*: Require continuation hospitalization for above defined care. 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
--- NOTE | 2020-01-06 20:00 | PC.NURSE ---
Received report from PROSPER Senior. Patient resting in bed. Patient denies discomfort or needs. Discussed holding of beta-gato tonight. Patient verbalized complete understanding stating, that is what Dr Estrada told me. He is going to make some changes to my medications. No distress observed.
[2020-01-06] MEDS: morphine 4 mg/mL SDV 1 mL 2 MG IVP (21:07)
[2020-01-06] MEDS: gabapentin 100 mg Capsule PO (21:09)
[2020-01-06] MEDS: atorvastatin 40 mg Tablet 80 MG PO (21:09)
[2020-01-06 21:26] LABS: Glucose Point of Care 183 mg/dL (70-110)
[2020-01-07] VITALS (7 sets, daily range): BP systolic 107–128; BP diastolic 44–61; PULSE 56–63; RESP 13–26; TEMP 36.4–37.1; O2SAT 91–98
[2020-01-07] MEDS: heparin 5,000 unit/mL INJ 1 mL 5000 UNIT SUBCUT ×2 (00:13→09:44)
[2020-01-07 05:21] LABS: Basophils % 0.7 %; Eosinophils # 0.2 10^3/uL (0.0-0.8); Eosinophils % 3.5 %; Hematocrit 28.5 % (37.0-47.0); Hemoglobin 8.9 g/dL (11.5-15.3); Lymphocytes # 1.7 10^3/uL (0.8-4.8); Mean Corpuscular HGB Conc 31.2 g/dL (30.0-36.0); Mean Corpuscular Hemoglobin 31.1 pg (28.0-34.0); Mean Corpuscular Volume 99.7 fL (81-99); Monocytes # 0.7 10^3/uL (0.2-0.9); Monocytes % 11.1 %; Neutrophils # 3.38 10^3/uL (1.8-7.7); Nucleated Red Blood Cells % 0 %; Platelet Count 191 10^3/cmm (130-400); Red Blood Count 2.86 10^6/uL (4.1-5.3); Red Cell Distribution Width 16.3 % (12.1-15.1)
[2020-01-07 05:43] LABS: Blood Urea Nitrogen 61 mg/dL (8-23); Calcium 9.2 mg/dL (8.5-10.5); Carbon Dioxide 25 mmol/L (22-29); Chloride 101 mmol/L (98-107); Glomerular Filtration Rate 29.7 mL/min (90-130); Glucose 112 mg/dL (65-115); Osmolality Calculated 286 mOsm/kg (285-295); Sodium 138 mmol/L (136-145)
[2020-01-07 06:48] LABS: Glucose Point of Care 115 mg/dL (70-110)
[2020-01-07] MEDS: nitrofurantoin SR (BID) 100 mg Capsule PO ×2 (09:42→17:49)
[2020-01-07] MEDS: sertraline 50 mg Tablet 25 MG PO (09:42)
[2020-01-07] MEDS: potassium chloride ER 10 mEq Tablet PO (09:43)
[2020-01-07] MEDS: clopidogrel 75 mg Tablet PO (09:43)
[2020-01-07] MEDS: isosorbide mononitrate ER 30 mg Tablet PO ×2 (09:43→17:42)
[2020-01-07] MEDS: cephALEXin 500 mg Capsule PO (09:43)
[2020-01-07] MEDS: NIFEdipine ER (24 hr) 30 mg Tablet PO (09:43)
[2020-01-07] MEDS: levothyroxine 50 mcg Tablet PO (09:43)
[2020-01-07] MEDS: pantoprazole DR 40 mg Tablet PO (09:43)
[2020-01-07] MEDS: bumetanide 1 mg Tablet PO (09:44)
--- NOTE | 2020-01-07 10:44 | P.PN_ITS ---
Subjective Subjective: Interval history: Patient awake in bed upon entering the room. She reports that she slept well throughout the night. She denies any current chest pain or shortness of breath. Denies any lightheadedness or dizziness. Discussed with patient plan for her non-ST elevation FL, she agrees with medical management at this time due to her chronic renal disease. Discussed with her medication changes and need for continued monitoring on telemetry. Discussed with patient concern for sinus pause while she was sleeping and need for telemetry monitoring further for the next 24 hours. Patient verbalizes understanding and agrees with plan RN at bedside during exam and discussion Vitals/I&O/Wt Last Vital Signs Temp 98.6 F 01/07/20 08:00 Pulse 56 L 01/07/20 08:34 Resp 16 01/07/20 08:34 BP 107/44 01/07/20 08:00 Pulse Ox 94 01/07/20 08:34 01/06/20 01/07/20 01/07/20 22:59 06:59 14:59 Intake Total 240 / 509.4 240 / 240 Output Total 150 / 150 150 / 300 Balance 90 / 359.4 -150 / 209.4 240 / 240 Weight last 48 hrs Weight 93.576 kg Weight 93.621 kg Physical Exam Const: COMMON NORMALS: patient oriented x3 and alert GENERAL APPEARANCE: cooperative ORIENTATION/CONSCIOUSNESS: Yes awake, Yes oriented to person, Yes oriented to place and Yes oriented to time HENMT: COMMON NORMALS: normocephalic and atraumatic HEAD & SCALP: normocephalic and atraumatic Eye: COMMON NORMALS: Equal, round and reactive pupils present PUPIL: Yes Equal, round and reactive pupils present Neck/C-Spine: COMMON NORMALS: supple GENERAL: Yes normal visual inspection Resp: COMMON NORMALS: normal respiratory effort and clear to auscultation bilaterally EFFORT & INSPECTION: Yes able to speak in complete sentences AUSCULTATION: clear to auscultation bilaterally, no rhonchi and no wheezes Cardio: COMMON NORMALS: regular rate and regular rhythm RATE: regular rate RHYTHM: regular rhythm HEART SOUNDS: Murmur heart sound present systolic GI: COMMON NORMALS: Soft to palpation and non-tender INSPECTION: No abd ominal distension AUSCULTATION: Yes normoactive bowel sounds PALPATION: Yes Soft to palpation Extremity: COMMON NORMALS: no calf tenderness NARRATIVE EXTREMITY EXAM: Trace nonpitting edema in the lower extremities bilaterally Neuro: COMMON NORMALS: patient oriented x3, CN's II-XII intact bilaterally, moves all extremities and no focal motor deficits SENSORIUM/ORIENTATION: Yes alert, Yes oriented to person, Yes oriented to place and Yes oriented to time SPEECH: speech normal Psych: COMMON NORMALS: mental status grossly normal and cooperative Skin: COMMON NORMALS: no rashes or lesions noted GENERAL SKIN EXAM: no rashes or lesions noted Data : 01/07/20 04:36 01/07/20 04:36 A&P Assessment and plan (1) NSTEMI (non-ST elevated myocardial infarction): Telemetry and monitoring on cardiac stepdown Patient taken off of heparin drip We will restart home Eliquis today Continue on Plavix, atorvastatin. Metoprolol is being held at this time due to bradycardia Plan is to continue with medical management at this time, patient remains symptom-free, no chest pain or shortness of breath today. Due to patient's contrast-induced nephropathy with her cardiac cath in August after further discussion with order dispatcher chief patient wishes to proceed with medical management at this time. We will continue to discuss further with Dr. Estrada and follow-up with cardiology recommendations Imdur increased to 30 mg twice daily Status: Acute (2) CAD (coronary artery disease): With recent stenting in August, followed by Dr. Estrada Continue with statin, Plavix, Imdur increased to twice daily. Beta-gato on hold at this time due to bradycardia Status: Acute (3) Chronic anemia: Hemoglobin stable, no evidence of any active bleeding at this time Status: Acute (4) Aortic stenosis: Chronic aortic stenosis, moderate Status: Acute Qualifiers: Cardiac valve disease etiology: nonrheumatic Qualified Code(s): I35.0 - Nonrheumatic aortic (valve) stenosis (5) Grade II diastolic dysfunction: Decrease Bumex to 1 mg daily as patient appears slightly dry with increasing BUN, creatinine stable Status: Acute (6) Diabetes: Will place on sliding scale insulin as needed Patient reports taking weekly injection of glycemic agent Friday We will give Lantus 10 units Status: Acute Qualifiers: Diabetes mellitus type: type 2 Additional A&P Information Bradycardia: Patient remains bradycardic today, metoprolol remains on hold. Discussed with cardiology and will continue to monitor patient on telemetry for an additional 24 hours. Patient did have 2 sinus pauses yesterday 3 seconds while sleeping, an additional 1 this morning while patient was sleeping. We will continue to monitor closely on telemetry and follow-up with cardiology recommendations. Sinus pause: Patient is now had 3 episodes in the past 24 hours, continue close monitoring on telemetry, patient is asymptomatic and this is occurred while sleeping, will follow up with cardiology recommendations Chronic kidney disease: Creatinine appears to be at baseline. BUN slightly increased today will decrease dose of home Bumex Chronic urinary tract infections with history of ESBL E. coli UTI, followed by Dr. Dodd, had been placed on Keflex by primary care provider, will discontinue at this time and continue on Macrobid as prescribed by Dr. Dodd prophylactically Chronic pain on daily opioids: on fentanyl patch Neuropathy: Continue gabapentin Hypothyroidism: TSH within normal limits and continue home levothyroxine History of atrial fibrillation: Restart home Eliquis today On chronic anticoagulation, restart home Eliquis today DVT prophylaxis: Heparin discontinued and Eliquis restarted Diet: Cardiac, carbohydrate consistent diet Code status: FUll code, patient would not want prolonged resuscitative measures Attestations Medical Necessity Statement*: Patient requires further hospitalization due to non-ST elevation FL with bradycardia and intermittent sinus pauses Coding Level of Care Code 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
[2020-01-07 11:48] LABS: Glucose Point of Care 179 mg/dL (70-110)
--- NOTE | 2020-01-07 15:01 | PC.NURSE ---
at 1335, pt noted to have sb rate 30's for approx 10 seconds.pt was awake.denied dizziness,sob.dr pfeiffer aware.no orders received.
--- NOTE | 2020-01-07 16:37 | PC.RESP ---
PATIENT DOES NOT HAVE A QUALIFYING HX OF LUNG DISEASE AND DOES NOT QUALIFY FOR PULMONARY REHAB.
[2020-01-07 17:13] LABS: Glucose Point of Care 177 mg/dL (70-110)
[2020-01-07] MEDS: apixaban 5 mg Tablet 2.5 MG PO (17:42)
[2020-01-07] MEDS: HYDROcodone-acetaminophen 5-325 mg Tablet 1 TAB PO (17:49)
[2020-01-07 20:34] LABS: Glucose Point of Care 176 mg/dL (70-110)
[2020-01-07] MEDS: insulin glargine 100 units/1 mL 10 UNIT SUBCUT (21:03)
[2020-01-07] MEDS: gabapentin 100 mg Capsule PO (21:04)
[2020-01-07] MEDS: atorvastatin 40 mg Tablet 80 MG PO (21:04)
[2020-01-08] VITALS (8 sets, daily range): BP systolic 106–133; BP diastolic 51–65; PULSE 60–69; RESP 15–22; TEMP 36.4–36.8; O2SAT 96–99
--- NOTE | 2020-01-08 03:53 | PC.NURSE ---
Patient incontinent had very wet urine output. Assisted patient up to [facility] [place]. Patient able to ambulate with standby assist only with the walker and tolerated very well. Patient bathed, brief changed, complete linen change. Patient expressed thanks and stated, I need to get up a while and do as much on my own as I can so I can go home.
[2020-01-08 04:40] LABS: Basophils # 0.1 10^3/uL (0.0-0.1); Eosinophils # 0.2 10^3/uL (0.0-0.8); Eosinophils % 3.9 %; Hematocrit 31.3 % (37.0-47.0); Hemoglobin 10.2 g/dL (11.5-15.3); Lymphocytes # 1.7 10^3/uL (0.8-4.8); Mean Corpuscular HGB Conc 32.6 g/dL (30.0-36.0); Mean Corpuscular Hemoglobin 32.1 pg (28.0-34.0); Mean Corpuscular Volume 98.4 fL (81-99); Mean Platelet Volume 10.9 fL (7.4-10.4); Monocytes # 0.6 10^3/uL (0.2-0.9); Monocytes % 10.8 %; Neutrophils # 2.69 10^3/uL (1.8-7.7); Neutrophils % 51.7 %; Nucleated Red Blood Cells % 0 %; Platelet Count 214 10^3/cmm (130-400); Red Blood Count 3.18 10^6/uL (4.1-5.3); Red Cell Distribution Width 16.1 % (12.1-15.1); White Blood Count 5.2 10^3/uL (4.0-10.0)
[2020-01-08 05:02] LABS: Anion Gap 16.9 (5-19); Blood Urea Nitrogen 54 mg/dL (8-23); Calcium 8.8 mg/dL (8.5-10.5); Carbon Dioxide 26 mmol/L (22-29); Chloride 100 mmol/L (98-107); Glomerular Filtration Rate 27.8 mL/min (90-130); Glucose 117 mg/dL (65-115); Osmolality Calculated 288 mOsm/kg (285-295); Potassium 3.9 mmol/L (3.5-5.1); Sodium 139 mmol/L (136-145)
[2020-01-08 06:48] LABS: Glucose Point of Care 125 mg/dL (70-110)
--- NOTE | 2020-01-08 08:49 | DCPLANNER ---
Pg 2 of IM updated and reviewed with pt. No questions, copy provided.
[2020-01-08] MEDS: nitrofurantoin SR (BID) 100 mg Capsule PO (09:46)
[2020-01-08] MEDS: levothyroxine 50 mcg Tablet PO (09:46)
[2020-01-08] MEDS: NIFEdipine ER (24 hr) 30 mg Tablet PO (09:46)
[2020-01-08] MEDS: bumetanide 1 mg Tablet PO (09:46)
[2020-01-08] MEDS: potassium chloride ER 10 mEq Tablet PO (09:46)
[2020-01-08] MEDS: sertraline 50 mg Tablet 25 MG PO (09:46)
[2020-01-08] MEDS: pantoprazole DR 40 mg Tablet PO (09:46)
[2020-01-08] MEDS: clopidogrel 75 mg Tablet PO (09:46)
[2020-01-08] MEDS: apixaban 5 mg Tablet 2.5 MG PO (09:47)
[2020-01-08] MEDS: isosorbide mononitrate ER 30 mg Tablet PO (09:47)
[2020-01-08 09:59] LABS: Glucose Point of Care 220 mg/dL (70-110)
--- NOTE | 2020-01-08 11:45 | P.PN_ITS ---
Subjective Subjective: Interval history: 69-year-old woman with past medical history of coronary artery disease status post angioplasty of first diagonal and stent placement in right coronary artery. Postprocedure contrast in-induced nephropathy with creatinine as high as 6. Since she was admitted this time with atypical chest pain and troponin of 688--> 689-->794. She underwent stress test that showed inferior and inferolateral FL with mild sathya-infarct ischemia. She was on metoprolol 50 mg at home. Since she has been in the hospital her metoprolol has been held. Last 24 hours: Patient did not have any pauses however she did have sinus bradycardia with Mobitz type I and II is to 1 AV block with heart rate in low 40s. Medications: Reviewed: Yes Medication Review Details: Current Medications Acetaminophen (Tylenol) 650 mg PO Q6H PRN PRN Reason: Mild/Mod Pain Or Temp >/= 101 Hydrocodone Bitart/Acetaminophen (Dardanelle 5-325 Mg) 1 tab PO Q4H PRN PRN Reason: MODERATE TO SEVERE PAIN Last Admin: 01/07/20 17:49 Dose: 1 tab Documented by: Albuterol Sulfate (Albuterol) 2.5 mg INHALATION Q4H.RESPIRATORY PRN PRN Reason: SHORTNESS OF BREATH Apixaban (Eliquis) 2.5 mg PO BID COUNTS INCLUDE 234 BEDS AT THE [facility] Last Admin: 01/08/20 09:47 Dose: 2.5 mg Documented by: Atorvastatin Calcium (Lipitor) 80 mg PO BEDTIME COUNTS INCLUDE 234 BEDS AT THE [facility] Last Admin: 01/07/20 21:04 Dose: 80 mg Documented by: Bumetanide (Bumex) 1 mg PO DAILY COUNTS INCLUDE 234 BEDS AT THE [facility] Last Admin: 01/08/20 09:46 Dose: 1 mg Documented by: Clopidogrel Bisulfate (Plavix) 75 mg PO DAILY COUNTS INCLUDE 234 BEDS AT THE [facility] Last Admin: 01/08/20 09:46 Dose: 75 mg Documented by: Dextrose (D50w) 25 ml IVP ONCE PRN; Protocol PRN Reason: hypoglycemia protocol Dextrose (D50w) 50 ml IVP PRN PRN; Protocol PRN Reason: hypoglycemia protocol Fentanyl (Duragesic 50 Mcg Patch) 1 patch TRANSDERMA Q72H COUNTS INCLUDE 234 BEDS AT THE [facility] Last Admin: 01/05/20 15:35 Dose: 1 patch Documented by: Gabapentin (Neurontin) 100 mg PO BEDTIME COUNTS INCLUDE 234 BEDS AT THE [facility] Last Admin: 01/07/20 21:04 Dose: 100 mg Documented by: Glucagon (Glucagen) 1 mg IM ONCE PRN; Protocol PRN Reason: Adult Acute Hypoglycemia Prot. Dextrose (D5w) 500 mls @ 100 mls/hr IV ONCE PRN; Protocol PRN Reason: Adult Acute Hypoglycemia Prot Insulin Aspart (Novolog) 0 unit SUBCUT BEDTIME COUNTS INCLUDE 234 BEDS AT THE [facility]; Protocol Last Admin: 01/07/20 21:03 Dose: 2 unit Documented by: Insulin Aspart (Novolog) 0 unit SUBCUT TIDWM COUNTS INCLUDE 234 BEDS AT THE [facility]; Protocol Last Admin: 01/08/20 11:47 Dose: 6 unit Documented by: Insulin Glargine (Lantus) 10 unit SUBCUT BEDTIME COUNTS INCLUDE 234 BEDS AT THE [facility] Last Admin: 01/07/20 21:03 Dose: 10 unit Documented by: Isosorbide Mononitrate (Imdur) 30 mg PO BID COUNTS INCLUDE 234 BEDS AT THE [facility] Last Admin: 01/08/20 09:47 Dose: 30 mg Documented by: Levothyroxine Sodium (Synthroid) 50 mcg PO DAILY COUNTS INCLUDE 234 BEDS AT THE [facility] Last Admin: 01/08/20 09:46 Dose: 50 mcg Documented by: Morphine Sulfate (Morphine) 2 mg IVP Q4H PRN PRN Reason: SEVERE PAIN Last Admin: 01/06/20 21:07 Dose: 2 mg Documented by: Naloxone HCl (Narcan) 0.1 mg IVP Q2M PRN PRN Reason: OPIATERV Nifedipine (Procardia Xl) 30 mg PO DAILY COUNTS INCLUDE 234 BEDS AT THE [facility] Last Admin: 01/08/20 09:46 Dose: 30 mg Documented by: Nitrofurantoin Macrocrystals (Macrobid) 100 mg PO BID COUNTS INCLUDE 234 BEDS AT THE [facility] Last Admin: 01/08/20 09:46 Dose: 100 mg Documented by: Ondansetron HCl (Zofran) 4 mg IVP Q8H PRN PRN Reason: vomiting, or N/V if npo Ondansetron HCl (Zofran) 4 mg IVP Q2M PRN PRN Reason: NAUSEA Pantoprazole Sodium (Protonix) 40 mg PO DAILY COUNTS INCLUDE 234 BEDS AT THE [facility] Last Admin: 01/08/20 09:46 Dose: 40 mg Documented by: Potassium Chloride (Klor-Con 10) 10 meq PO DAILY COUNTS INCLUDE 234 BEDS AT THE [facility] Last Admin: 01/08/20 09:46 Dose: 10 meq Documented by: Sertraline HCl (Zoloft) 25 mg PO DAILY COUNTS INCLUDE 234 BEDS AT THE [facility] Last Admin: 01/08/20 09:46 Dose: 25 mg Documented by: Vitals/I&O/Wt Last Vital Signs Temp 97.6 F 01/08/20 10:50 Pulse 62 01/08/20 10:50 Resp 16 01/08/20 10:50 BP 113/51 01/08/20 10:50 Pulse Ox 97 01/08/20 10:50 01/07/20 01/08/20 01/08/20 22:59 06:59 14:59 Intake Total 480 / 960 240 / 240 Output Total 0 / 500 200 / 700 Balance 480 / 460 -200 / 260 240 / 240 Weight last 48 hrs Weight 202 lb 14.4 oz Weight 206 lb 4.8 oz Physical Exam Narrative: EXAM NARRATIVE: GENERAL: Obesewoman's sitting in chair in no acute distress HEENT: Extraocular movement intact. Pupils equal round reactive to light. Pallor present, no icterus. NECK: central trachea, No JVD. No carotid bruit. CARDIOVASCULAR SYSTEM: S1-S2 regular. [No murmur rubs or gallops.] RESPIRATORY SYSTEM: Chest clear to auscultation. No wheezes rhonchi or rubs heard. No use of accessory muscles. EXTREMITIES: No cyanosis or clubbing. [No edema]. No signs of chronic venous insufficiency. 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 No focal neurological deficits. Data : 01/08/20 04:20 01/08/20 04:20 A&P Assessment and plan (1) NSTEMI (non-ST elevated myocardial infarction): Stress test showed old myocardial infarction in the inferior and inferolateral region with mild sathya-infarct ischemia. - Patient is stable. denies any chest pain. Not in heart failure. - Plan to continue to treat her medically and conservatively as she is very high risk for contrast-induced nephropathy. - Continue optimizing medicine. we cannot further optimize beta-gato since patient has bradycardia. - continue isosorbide mononitrate to 30 mg twice a day, nifedipine, plavix and Statin. -Patient seems stable to be discharged home from cardiac standpoint with plan for event monitor on Friday. Status: Acute (2) Atrial fibrillation by electrocardiogram: Patient remains in sinus rhythm presently. however she did have few episodes of 3 to 3.5-second pauses. -Beta-gato is on hold . -we plan to do event monitor as an outpatient. Status: Acute (3) Aortic stenosis: Stable. Continue to monitor Status: Acute Qualifiers: Cardiac valve disease etiology: nonrheumatic Qualified Code(s): I35.0 - Nonrheumatic aortic (valve) stenosis (4) Chest pain: No more chest pain. Patient is stable Status: Acute Qualifiers: Chest pain type: precordial pain Qualified Code(s): R07.2 - Precordial pain (5) Heart failure with preserved ejection fraction: Well compensated. 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
--- NOTE | 2020-01-08 13:20 | PM.DCS ---
Discharge Providers Date of Admission: 01/05/20 12:14 Date of Discharge: January 08, 2020 Attending Provider at Admission: Isabella Nagel DO Attending Provider at Discharge: Kan Owens MD Primary Care Provider: Betsy Nuno DO Diagnoses at Discharge Discharge Diagnosis (1) NSTEMI (non-ST elevated myocardial infarction): Status: Acute (2) Atrial fibrillation by electrocardiogram: Status: Acute (3) Aortic stenosis: Status: Acute Qualifiers: Cardiac valve disease etiology: nonrheumatic Qualified Code(s): I35.0 - Nonrheumatic aortic (valve) stenosis (4) Chest pain: Status: Acute Qualifiers: Chest pain type: precordial pain Qualified Code(s): R07.2 - Precordial pain (5) Heart failure with preserved ejection fraction: Status: Acute Problem details: -No acute exacerbation currently -cardiac diet as tolerated -Echo: EF=55%, G2DD, mild pulmonary HTN, mild , mild to moderate MR Qualifiers: Heart failure chronicity: chronic Qualified Code(s): I50.32 - Chronic diastolic (congestive) heart failure (6) Morbid obesity: Status: Acute (7) Anticoagulation adequate with anticoagulant therapy: Status: Acute (8) Normocytic anemia: Status: Acute Problem details: -Chronic normocytic anemia -baseline Hg 9-10; iron panel done during last admission -continue to monitor H/H -Has had GI workup done with colonoscopy (11/2014) unremarkable other than diverticuli and 5 mm sessile polyp in sigmoid colon (pathology-benign mucosa with edema and surface hyperplastic change, no malignancy). May need repeat w/u if continued anemia -Likely anemia of chronic disease -Due to worsening anemia received transfusion of 1 unit PRBCs (on 09/09) and IV iron. -noted drop to 7.0, s/p transfusion of 2 units PRBCs; got dose of lasix in between to prevent fluid overload. Hg up to 9.0 Reason for Visit Reason for Visit: CHEST PAIN Hospital Course Hospital Course: Fantasma is a 69-year-old white female who presented to the emergency department with complaints of chest discomfort. She had a past history of coronary disease with previous intervention in August 2019. Troponin at baseline was 688, and at 6 hours 106. This was consistent with a non-ST elevation myocardial infarction and cardiology was consulted. She had very high risk for intervention secondary to her renal disease. Therefore a nuclear stress test was performed demonstrating a large size perfusion abnormality with mild reversibility. Echocardiogram was also performed demonstrating preserved EF, 2/4 diastolic dysfunction, moderate aortic valve stenosis and moderate mitral regurgitation. With these findings it was not thought that angiogram was warranted considering the risk of renal failure. Medications were adjusted with increasing Imdur. While in the hospital patient had bradycardia and some pauses and beta-gato was withdrawn. With these treatments she had no recurrent chest pain. No significant pauses after beta-gato was withdrawn although she would occasionally have episodes of [place]enckebach. By January 07, she was feeling well and wanting to go home. She refused nursing facility placement but would allow home health. She will be discharged, with orders for an event monitor and have follow-up with her primary care provider as well as cardiology. She will continue on Plavix, Eliquis, statin, Imdur. I did evaluate her on the morning of January 07 for some shakiness. She had a mild headache at that time. Magnesium, potassium, glucose and vital signs were all checked and normal. This went away rather quickly. Headache did as well. She will follow-up with her primary care provider for this as well. It was not associated with any arrhythmia on telemetry. Physical Exam Narrative: EXAM NARRATIVE: General exam no apparent distress Cardiovascular regular rate and rhythm with a 2/6 systolic murmur Lungs clear Abdomen is soft positive bowel sounds Extremities no cyanosis clubbing or edema. Discharge Data Data Completed and Pending: Completed Studies During Hospitalization Category Date Time Status Cardiac Stress Te st MIBI [Sestamibi Stress Test Reque st Exams 01/06/20 06:00 Draft ] Routine XR chest 1V jenna ble [id number] Urgent Exams 01/05/20 09:32 Completed NM luis alfredo perf SPECT r/s* [id number] Routin e Nuc Med 01/06/20 19:01 Completed CV echo complete* [id number] Routine Ultrasound 01/05/20 14:40 Completed Pending at discharge Category Date Time Status Cardiac Stress Te st MIBI [Sestamibi Stress Test Reque st Exams 01/05/20 19:02 Stop Req ] Routine Labs from last 24 hours 01/08/20 01/08/20 01/08/20 09:55 06:41 04:20 WBC RBC Hgb Hct MCV MCH MCHC RDW Plt Count MPV Neut % (Auto) Lymph % (Auto) [place] % (Auto) Eos % (Auto) Baso % (Auto) Neut # (Auto) Lymph # (Auto) [place] # (Auto) Eos # (Auto) Baso # (Auto) Nucleated RBC % (a uto) Nucleated RBCs # Sodium Potassium Chloride Carbon Dioxide Anion Gap BUN Creatinine GFR Calculation Glucose POC Glucose 220 125 Calculated Osmolal ity Calcium Magnesium 2.0 01/08/20 01/08/20 01/07/20 04:20 04:20 20:22 WBC 5.2 RBC 3.18 L Hgb 10.2 L Hct 31.3 L MCV 98.4 MCH 32.1 MCHC 32.6 RDW 16.1 H Plt Count 214 MPV 10.9 H Neut % (Auto) 51.7 Lymph % (Auto) 32.0 [place] % (Auto) 10.8 Eos % (Auto) 3.9 Baso % (Auto) 1.0 Neut # (Auto) 2.69 Lymph # (Auto) 1.7 [place] # (Auto) 0.6 Eos # (Auto) 0.2 Baso # (Auto) 0.1 Nucleated RBC % (a uto) 0 Nucleated RBCs # 0.0 Sodium 139 Potassium 3.9 Chloride 100 Carbon Dioxide 26 Anion Gap 16.9 BUN 54 H Creatinine 1.8 H GFR Calculation 27.8 L Glucose 117 H POC Glucose 176 Calculated Osmolal ity 288 Calcium 8.8 Magnesium 01/07/20 17:07 WBC RBC Hgb Hct MCV MCH MCHC RDW Plt Count MPV Neut % (Auto) Lymph % (Auto) [place] % (Auto) Eos % (Auto) Baso % (Auto) Neut # (Auto) Lymph # (Auto) [place] # (Auto) Eos # (Auto) Baso # (Auto) Nucleated RBC % (a uto) Nucleated RBCs # Sodium Potassium Chloride Carbon Dioxide Anion Gap BUN Creatinine GFR Calculation Glucose POC Glucose 177 Calculated Osmolal ity Calcium Magnesium Vitals: Last Vital Signs Temp 97.6 F 01/08/20 10:50 Pulse 62 01/08/20 10:50 Resp 16 01/08/20 10:50 BP 113/51 01/08/20 10:50 Pulse Ox 97 01/08/20 10:50 Discharge Plan Discharge Patient Disposition: Home Health Service Condition: Stable Prescriptions: New bumetanide 1 mg Tablet 1 mg PO DAILY Qty: 30 RF: 0 isosorbide mononitrate 30 mg Tablet Extended Release 24 Hr 30 mg PO BID Qty: 60 RF: 0 Continued glipizide 5 mg tablet 5 mg PO DAILY RF: 0 Lansri Solostar U-100 Insulin 100 unit/mL (3 mL) insulin pen See Rx Instructions SUBCUT .COMPLEX RF: 0 Miralax 17 gram powder in packet 17 g PO DAILY PRN (Reason: Constipation) RF: 0 sennosides-docusate sodium 8.6-50 mg tablet 1 tab PO DAILY PRN (Reason: Constipation) RF: 0 nitrofurantoin monohyd/m-cryst [Macrobid] 100 mg capsule 100 mg PO BID Qty: 60 RF: 2 clopidogrel 75 mg Tablet 75 mg PO DAILY Qty: 30 RF: 0 Dexilant 60 mg capsule,biphase delayed releas 60 mg PO DAILY Qty: 30 RF: 0 Eliquis 5 mg Tablet 2.5 mg PO BID Qty: 30 RF: 0 fentanyl 50 mcg/hr patch 72 hour 50 mcg topical Q72H Qty: 10 RF: 0 ondansetron HCl [Zofran] 4 mg Tablet 4 mg PO BID PRN (Reason: Nausea) Qty: 30 RF: 0 nifedipine 30 mg Tablet Extended Release 30 mg PO DAILY Qty: 30 RF: 0 levothyroxine 50 mcg tablet 50 mcg PO DAILY Qty: 30 RF: 0 sertraline 25 mg tablet 25 mg PO DAILY Qty: 30 RF: 0 gabapentin 100 mg capsule 100 mg PO BEDTIME Qty: 30 RF: 0 rosuvastatin 20 mg tablet 20 mg PO BEDTIME Qty: 30 RF: 0 acetaminophen 325 mg capsule 325 mg PO QID PRN (Reason: fever or mild pain) Qty: 30 RF: 0 potassium chloride 10 mEq tablet extended release 10 meq PO DAILY RF: 0 Discontinued bumetanide 1 mg tablet 2 mg PO DAILY RF: 0 isosorbide mononitrate 30 mg Tablet Extended Release 24 Hr 30 mg PO DAILY RF: 0 cephalexin 500 mg Capsule 500 mg PO BID RF: 0 metoprolol tartrate 50 mg Tablet 50 mg PO DAILY RF: 0 Referrals: Ruchi Estrada MD [Physician] - 2 weeks Betsy Nuno DO [Primary Care Provider] - 4-7 days Discharge Diet: Cardiac and Diabetic Discharge Activity: Increase activity as tolerated Activity Restrictions/Additional Instructions: Take all medicine as prescribed Follow-up with your primary care provider 3 to 5 days with BMP Follow-up with cardiology 2 weeks Discharge Attestations Time Spent in Discharge Care*: greater than 30 min Status at Discharge: Cognitive status at discharge: cognitively intact, Behavioral status at discharge: cooperative, Quality Metrics Clinical Quality Measures During this hospital stay, did patient experience: AMI Clinical Trial Participant: No Contraindication to aspirin (AMI): Other (PLAVIX, ELIQUIS) Contraindication to statin: Statin prescribed Coding Level of Care Code Acute 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
--- NOTE | 2020-01-08 15:29 | PC.NURSE ---
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
== END 2020-01-08 15:29 | disposition home health service (06) | DRG 281 ==
LOC: ER 13:53 → CSU 14:22
PROVIDERS: Physician Assistant; Admitting Provider Family Medicine; Emergency Provider Family Medicine; PCP Family Medicine; Visit Provider Internal Medicine
DX: I21.4 Non-ST elevation (NSTEMI) myocardial infarction (principal); I48.92 Unspecified atrial flutter; I50.32 Chronic diastolic (congestive) heart failure; I13.0 Hypertensive heart and chronic kidney disease with heart failure and stage 1 through stage 4 chronic kidney disease, or unspecified chronic kidney disease; I48.91 Unspecified atrial fibrillation; I35.0 Nonrheumatic aortic (valve) stenosis; D64.9 Anemia, unspecified; I25.10 Atherosclerotic heart disease of native coronary artery without angina pectoris; E11.22 Type 2 diabetes mellitus with diabetic chronic kidney disease; I27.20 Pulmonary hypertension, unspecified; Z79.01 Long term (current) use of anticoagulants; Z79.02 Long term (current) use of antithrombotics/antiplatelets; E78.5 Hyperlipidemia, unspecified; N18.9 Chronic kidney disease, unspecified; M19.90 Unspecified osteoarthritis, unspecified site; K21.9 Gastro-esophageal reflux disease without esophagitis; Z87.891 Personal history of nicotine dependence
CPT/HCPCS: 12345; 36415; 36416; 71045; 78452; 80048; 80053; 80061; 82962; 83735; 84443; 84484; 85025; 85610; 85730; 93005; 93017; 93306; 94664; 96372; 96375; 97116; 97161; 97530; 99282; A9500; J1644; J1815 ×2; J2270; J2785

== ENCOUNTER 2020-01-13 15:39 | Outpatient (RCR) | payer MEDICARE, MEDICAID, SELFPAY | END 2020-01-14 23:59 | disposition home or self-care (01) | LOC: SPT 15:39 | PROVIDERS: PCP Family Medicine; Referring Provider Orthopaedic Surgery; Visit Provider Orthopaedic Surgery | DX: M77.9 Enthesopathy, unspecified (principal) | CPT/HCPCS: 97161 ==

== ENCOUNTER → 2020-01-25 15:37 | Outpatient (BNVA) | payer MEDICARE, MEDICAID, SELFPAY | PROVIDERS: PCP Family Medicine; Visit Provider Urology | DX: N39.0 Urinary tract infection, site not specified (principal) | CPT/HCPCS: 80053; 81001; 87077; 87086; 87186 ==

== ENCOUNTER 2020-02-13 05:09 | Emergency (ER) | payer MEDICARE, MEDICAID, SELFPAY ==
--- NOTE | 2020-02-13 05:11 | ECG_ITS ---
[facility] Test Date: 2020-02-13 Pat Name: Fantasma Montalvo Department: Room: Gender: Female Log Rafter: : 1950 Requested By: Chaparro Spence Order Number: [id number] Maribell MD: Emily Rome M.D. Measurements Intervals [place] Rate: 68 P: NC: -1 QRS: 70 QRSD: 141 T: -43 QT: 422 QTc: 449 Interpretive Statements Sinus rhythm with a first-degree AV block RIGHT BUNDLE BRANCH BLOCK [120+ ms QRS DURATION, UPRIGHT V1, 40+ ms S IN I/aVL/V4/V5/V6] MODERATE T-WAVE ABNORMALITY, CONSIDER INFERIOR ISCHEMIA [-0.1+ mV T WAVE IN II/aVF] Compared to ECG 01/06/2020 14:18:58 T-wave abnormality now present Possible ischemia now present Sinus bradycardia no longer present First degree AV block no longer present Myocardial infarct finding no longer present Electronically Signed On 02-14-2020 0:15:14 CDT by Emily Rome M.D. [id number]
--- NOTE | 2020-02-13 05:11 | XR_ITS ---
WS: [id number] PORTABLE CHEST HISTORY: cp COMPARISON: 01/05/2020 Lungs are clear and well expanded. No pleural effusion or pneumothorax. Cardiac size: Normal. Mediastinum/Aorta: Normal mediastinum. Osteopenia. Degenerative changes at the glenohumeral joints. XR/XR chest 1V portable [id number] IMPRESSION: Unremarkable portable chest.
[2020-02-13 05:17] VITALS: BP 152/75; PULSE 67; RESP 16; O2SAT 94
[2020-02-13 05:25] VITALS: BP 152/75
--- NOTE | 2020-02-13 05:29 | PC.NURSE ---
EKG done at 0520 and shown to ER doctor
[2020-02-13 05:55] LABS: Basophils # 0.1 10^3/uL (0.0-0.1); Basophils % 0.5 %; Eosinophils # 0.1 10^3/uL (0.0-0.8); Eosinophils % 0.8 %; Hematocrit 33.1 % (37.0-47.0); Hemoglobin 10.8 g/dL (11.5-15.3); Lymphocytes % 10.4 %; Mean Corpuscular HGB Conc 32.6 g/dL (30.0-36.0); Mean Corpuscular Hemoglobin 31.4 pg (28.0-34.0); Mean Corpuscular Volume 96.2 fL (81-99); Mean Platelet Volume 10.5 fL (7.4-10.4); Monocytes # 0.9 10^3/uL (0.2-0.9); Monocytes % 8.9 %; Neutrophils # 7.87 10^3/uL (1.8-7.7); Neutrophils % 78.7 %; Nucleated Red Blood Cells % 0 %; Platelet Count 205 10^3/cmm (130-400); Red Blood Count 3.44 10^6/uL (4.1-5.3); Red Cell Distribution Width 14.6 % (12.1-15.1)
[2020-02-13 06:07] LABS: Troponin(5th) Baseline 40 ng/L (0-10)
[2020-02-13 06:12] VITALS: RESP 18
[2020-02-13] MEDS: morphine 4 mg/mL SDV 1 mL 2 MG IVP (06:12)
[2020-02-13] MEDS: ondansetron 2 mg/ML SDV 2 mL 4 MG IVP (06:12)
[2020-02-13] MEDS: nitroglycerin 1 gm/inch oint Pkt 1 INCH TOPICAL (06:12)
[2020-02-13 06:16] LABS: Alanine Aminotransferase 19 U/L (0-33); Albumin Level 4.4 g/dL (3.5-5.2); Alkaline Phosphatase 95 IU/L (35-105); Aspartate Amino Transferase 23 U/L (0-32); Blood Urea Nitrogen 29 mg/dL (8-23); Calcium 9.7 mg/dL (8.5-10.5); Carbon Dioxide 24 mmol/L (22-29); Chloride 101 mmol/L (98-107); Creatine Phosphokinase 68 U/L (26-192); Globulin 3.2 g/dL (1.3-4.6); Glomerular Filtration Rate 31.9 mL/min (90-130); Glucose 134 mg/dL (65-115); NT Pro B Type Natriuretic Pept 4341 pg/mL (0-125); Osmolality Calculated 289 mOsm/kg (285-295); Sodium 140 mmol/L (136-145); Total Bilirubin 0.9 mg/dL (0.15-1.2); Total Protein 7.6 g/dL (6.6-8.7)
[2020-02-13 06:26] VITALS: BP 134/65; PULSE 63; O2SAT 94
--- NOTE | 2020-02-13 06:33 | W.ED.CHESTPA ---
Documented by User: Chaparro Ta DO 02/13/20 07:10 HPI - Chest Pain General: Chief Complaint: Chest Pain Stated Complaint: chest pain Time Seen by Provider: 02/13/20 05:18 History of Present Illness: HPI narrative: 69-year-old female with a history of coronary disease, with her latest stent being placed at this facility in October. She presents with left-sided reproducible chest discomfort. It started around 3 this morning. It did not wake her from sleep, as she had not gone to bed yet. She has mild shortness of breath with it. It hurts to take a deep breath. There is been no cough, no fever, no other symptoms. MD complaint: chest pain Pertinent past history: coronary artery disease and [employer] Onset (ago): hour(s) Timing of current episode: constant Prior episodes: Yes Onset: during rest Pain location: substernal and left chest Pain radiation: left arm Severity: moderate Quality: aching and heaviness Relieving factors: nitroglycerin Exacerbating factors: nothing Associated symptoms: Reports dyspnea, nausea and palpitations; Deny abdominal pain, fever(s), leg edema or vomiting Treatment prior to arrival: aspirin and nitroglycerin Review of Systems Const: Denies: fever(s) Eyes: Denies: change in vision ENMT: Denies: swelling of lips/tongue, epistaxis, post nasal drip or sinus pain Card: Reports: chest pain and palpitations; Denies: irregular heart rhythm, edema or orthopnea Resp: Reports: dyspnea; Denies: productive cough, non-productive cough or wheezing GI: Reports: nausea; Denies: abdominal pain or vomiting : Denies: dysuria or hematuria Skin/Breast: Denies: rash, pruritus or erythema Neuro: Denies: headache(s) or vertigo Psych: Denies: anxiety PFSH ED PFSH: Medical History Anticoagulation adequate with anticoagulant therapy Aortic stenosis Atrial fibrillation by electrocardiogram CAD (coronary artery disease) CHF (congestive heart failure) Dental caries Diabetes DJD (degenerative joint disease) Gastroenteritis GERD (gastroesophageal reflux disease) HTN (hypertension) Hypercholesterolemia Hyperlipidemia Morbid obesity Recurrent UTI Long history of recurrent UTIs suspicious for CHRONIC CYSTITIS. ESBL E. coli documented in 2019. Rhabdomyolysis Urinary incontinence Surgical History History of cardiac catheterization History of hernia repair History of hip surgery History of hysterectomy History of knee surgery History of sinus surgery History of tonsillectomy History of umbilical hernia repair Family History Father , in his 60's Lung disease Mother , 99 Hypertension Other Diabetes Stroke Denies family history of CAD (coronary artery disease) Clotting disorder Dementia Chronic kidney disease (CKD) Social History Smoking and tobacco status: never smoked Quit status (tobacco): has quit using tobacco Former quit date comment: Smoking in her 20s Alcohol intake: never Caregiver/support person: Yes (Home health services Friday) Lives independently: Yes Housing: House Marital status: Current occupational status: retired History of recent travel: No Current gender identity: Female Physical Exam Const: GENERAL APPEARANCE: well developed ORIENTATION/CONSCIOUSNESS: Yes oriented to person, Yes oriented to place and Yes oriented to time HENMT: COMMON NORMALS: normocephalic, external ears normal and Normal external nose present HEAD & SCALP: normocephalic; no scalp tenderness FACE & SINUS: normal facial exam NOSE: Normal external nose present and No nasal discharge present EXTERNAL EAR: Yes external ears normal MOUTH: tongue normal TEETH & GINGIVA: no abnormal tooth and associated gingiva THROAT: posterior oropharynx normal; no peritonsillar mass Eye: COMMON NORMALS: Equal, round and reactive pupils present, EOMs intact bilaterally and conjunctivae normal EYELID: eyelids normal CONJUNCTIVA: Yes conjunctivae normal PUPIL: Yes Equal, round and reactive pupils present Neck/C-Spine: GENERAL: No tracheal deviation Chest: COMMONS NORMALS: normal inspection of the chest CHEST: Yes tenderness Resp: COMMON NORMALS: clear to auscultation bilaterally EFFORT & INSPECTION: No tachypneic, No respiratory distress, No retractions, No uses accessory muscles and No tracheal deviation AUSCULTATION: clear to auscultation bilaterally, no rhonchi, no wheezes and lung sounds not diminished Cardio: COMMON NORMALS: regular rate and regular rhythm RATE: regular rate RHYTHM: regular rhythm HEART SOUNDS: no murmurs PERIPHERAL PULSES: radial pulses present GI: INSPECTION: No abdominal distension AUSCULTATION: No Hyperactive bowel sounds present and No Hypoactive bowel sounds present PALPATION: No Guarding due to palpation present (GI) and No Rigid due to palpation PERCUSSION: no dullness to percussion and no tympanic to percussion Neuro: SENSORIUM/ORIENTATION: Yes oriented to person, Yes oriented to place and Yes oriented to time Psych: COMMON NORMALS: mental status grossly normal Skin: COMMON NORMALS: no rashes or lesions noted GENERAL SKIN EXAM: no rashes or lesions noted Course Vital Signs: Vital signs: Vital Signs Pulse Rate 64 02/13/20 09:15 Respiratory Rate 18 02/13/20 09:15 Blood Pressure 119/63 02/13/20 09:15 Pulse Oximetry 96 02/13/20 09:15 MDM - Chest Pain MDM Narrative: Medical decision making narrative: Pain was much improved on my exam. She still has some pain. She has lower left-sided chest wall tenderness. Her vitals been good. BUN is 29 creatinine 1.6. Hemoglobin is 11. Her first troponin is 40. Next 1 is pending. EKG shows a supraventricular rhythm with right bundle branch block. There are nonspecific ST segment changes anteriorly. There are T wave inversions in the inferior leads, which were present on previous EKG. she'll be checked out to Dr. Peacock at shift change. Lab Data: Labs: Lab Results 02/13/20 02/13/20 02/13/20 Range/Units 05:21 05:21 05:40 WBC 10.0 (4.0-10.0) 10^3/ uL RBC 3.44 L (4.1-5.3) 10^6/u L Hgb 10.8 L (11.5-15.3) g/dL Hct 33.1 L (37.0-47.0) % MCV 96.2 (81-99) fL MCH 31.4 (28.0-34.0) pg MCHC 32.6 (30.0-36.0) g/dL RDW 14.6 (12.1-15.1) % Plt Count 205 (130-400) 10^3/c mm MPV 10.5 H (7.4-10.4) fL Neut % (Auto) 78.7 % Lymph % (Auto) 10.4 % Dawson % (Auto) 8.9 % Eos % (Auto) 0.8 % Baso % (Auto) 0.5 % Neut # (Auto) 7.87 H (1.8-7.7) 10^3/u L Lymph # (Auto) 1.0 (0.8-4.8) 10^3/u L Dawson # (Auto) 0.9 (0.2-0.9) 10^3/u L Eos # (Auto) 0.1 (0.0-0.8) 10^3/u L Baso # (Auto) 0.1 (0.0-0.1) 10^3/u L Nucleated RBC % (a uto) 0 % Nucleated RBCs # 0.0 /100WBC Sodium 140 (136-145) mmol/L Potassium 4.0 (3.5-5.1) mmol/L Chloride 101 (98-107) mmol/L Carbon Dioxide 24 (22-29) mmol/L Anion Gap 19.0 (5-19) BUN 29 H (8-23) mg/dL Creatinine 1.6 H (0.5-0.9) mg/dL GFR Calculation 31.9 L (90-130) mL/min Glucose 134 H (65-115) mg/dL Calculated Osmolal ity 289 (285-295) mOsm/k g Calcium 9.7 (8.5-10.5) mg/dL Total Bilirubin 0.9 (0.15-1.2) mg/dL AST 23 (0-32) U/L ALT 19 (0-33) U/L Alkaline Phosphata se 95 (35-105) IU/L Creatine Kinase 68 (26-192) U/L Troponin T Gen 5 n g/L (0-10) ng/L Troponin T Baselin e 40 H (0-10) ng/L NT-Pro-B Natriuret Pep 4341 H (0-125) pg/mL Total Protein 7.6 (6.6-8.7) g/dL Albumin 4.4 (3.5-5.2) g/dL Globulin 3.2 (1.3-4.6) g/dL 30/ Range/Units 08:02 WBC (4.0-10.0) 10^3/ uL RBC (4.1-5.3) 10^6/u L Hgb (11.5-15.3) g/dL Hct (37.0-47.0) % MCV (81-99) fL MCH (28.0-34.0) pg MCHC (30.0-36.0) g/dL RDW (12.1-15.1) % Plt Count (130-400) 10^3/c mm MPV (7.4-10.4) fL Neut % (Auto) % Lymph % (Auto) % [place] % (Auto) % Eos % (Auto) % Baso % (Auto) % Neut # (Auto) (1.8-7.7) 10^3/u L Lymph # (Auto) (0.8-4.8) 10^3/u L [place] # (Auto) (0.2-0.9) 10^3/u L Eos # (Auto) (0.0-0.8) 10^3/u L Baso # (Auto) (0.0-0.1) 10^3/u L Nucleated RBC % (a uto) % Nucleated RBCs # /100WBC Sodium (136-145) mmol/L Potassium (3.5-5.1) mmol/L Chloride (98-107) mmol/L Carbon Dioxide (22-29) mmol/L Anion Gap (5-19) BUN (8-23) mg/dL Creatinine (0.5-0.9) mg/dL GFR Calculation (90-130) mL/min Glucose (65-115) mg/dL Calculated Osmolal ity (285-295) mOsm/k g Calcium (8.5-10.5) mg/dL Total Bilirubin (0.15-1.2) mg/dL AST (0-32) U/L ALT (0-33) U/L Alkaline Phosphata se (35-105) IU/L Creatine Kinase (26-192) U/L Troponin T Gen 5 n g/L 35 H (0-10) ng/L Troponin T Baselin e (0-10) ng/L NT-Pro-B Natriuret Pep (0-125) pg/mL Total Protein (6.6-8.7) g/dL Albumin (3.5-5.2) g/dL Globulin (1.3-4.6) g/dL Discharge Plan Discharge Patient Disposition: Home Clinical Impression: Chest pain Condition: Stable Prescriptions: No Action glipizide 5 mg tablet 5 mg PO DAILY RF: 0 Lantus Solostar U-100 Insulin 100 unit/mL (3 mL) insulin pen See Rx Instructions SUBCUT .COMPLEX RF: 0 Miralax 17 gram powder in packet 17 g PO DAILY PRN (Reason: Constipation) RF: 0 sennosides-docusate sodium 8.6-50 mg tablet 1 tab PO DAILY PRN (Reason: Constipation) RF: 0 cefuroxime axetil 500 mg tablet 500 mg PO BID Qty: 60 RF: 2 clopidogrel 75 mg Tablet 75 mg PO DAILY Qty: 30 RF: 0 Dexilant 60 mg capsule,biphase delayed releas 60 mg PO DAILY Qty: 30 RF: 0 Eliquis 5 mg Tablet 2.5 mg PO BID Qty: 30 RF: 0 fentanyl 50 mcg/hr patch 72 hour 50 mcg topical Q72H Qty: 10 RF: 0 ondansetron HCl [Zofran] 4 mg Tablet 4 mg PO BID PRN (Reason: Nausea) Qty: 30 RF: 0 nifedipine 30 mg Tablet Extended Release 30 mg PO DAILY Qty: 30 RF: 0 levothyroxine 50 mcg tablet 50 mcg PO DAILY Qty: 30 RF: 0 sertraline 25 mg tablet 25 mg PO DAILY Qty: 30 RF: 0 gabapentin 100 mg capsule 100 mg PO BEDTIME Qty: 30 RF: 0 rosuvastatin 20 mg tablet 20 mg PO BEDTIME Qty: 30 RF: 0 acetaminophen 325 mg capsule 325 mg PO QID PRN (Reason: fever or mild pain) Qty: 30 RF: 0 potassium chloride 10 mEq tablet extended release 10 meq PO DAILY RF: 0 isosorbide mononitrate 30 mg Tablet Extended Release 24 Hr 30 mg PO BID Qty: 60 RF: 0 bumetanide 1 mg Tablet 1 mg PO DAILY Qty: 30 RF: 0 Discharge Orders: Discharge Order (Routine); Ordered 02/13/20 Ordered By: Christie Peacock Referrals: Betsy Nuno DO [Primary Care Provider] - Discharge Diet: Low Fat Discharge Activity: Resume usual activity Patient Instructions: Chest Pain (ED) Activity Restrictions/Additional Instructions: Return to the emergency department if further episodes of chest pain or other symptoms which are concerning. Follow-up with Dr. Fleming tomorrow as scheduled. Discharge Date/Time: 02/13/20 09:17 Coding Level of Care Code ED Inventory And Pricing Associate for Chg Fwd Exam Comprehensive Documented by User: Christie Peacock MD 02/16/20 11:05 HPI - Chest Pain General: Chief Complaint: Chest Pain Stated Complaint: chest pain Time Seen by Provider: 02/13/20 05:18 PFSH ED PFSH: Medical History Anticoagulation adequate with anticoagulant therapy Aortic stenosis Atrial fibrillation by electrocardiogram CAD (coronary artery disease) CHF (congestive heart failure) Dental caries Diabetes DJD (degenerative joint disease) Gastroenteritis GERD (gastroesophageal reflux disease) HTN (hypertension) Hypercholesterolemia Hyperlipidemia Morbid obesity Recurrent UTI Long history of recurrent UTIs suspicious for CHRONIC CYSTITIS. ESBL E. coli documented in 2019. Rhabdomyolysis Urinary incontinence Surgical History History of cardiac catheterization History of hernia repair History of hip surgery History of hysterectomy History of knee surgery History of sinus surgery History of tonsillectomy History of umbilical hernia repair Family History Father , in his 60's Lung disease Mother , 99 Hypertension Other Diabetes Stroke Denies family history of CAD (coronary artery disease) Clotting disorder Dementia Chronic kidney disease (CKD) Social History Smoking and tobacco status: never smoked Quit status (tobacco): has quit using tobacco Former quit date comment: Smoking in her 20s Alcohol intake: never Caregiver/support person: Yes (Home health services Friday) Lives independently: Yes Housing: House Marital status: Current occupational status: retired History of recent travel: No Current gender identity: Female Course ED course: Assumed care of this patient from Dr. Ta at shift change. She remained pain-free in the department. She strongly wanted to go home and we discussed that there was some risk in that. With her troponin declining and symptoms that she said were not like her prior episodes which resulted in stenting I feel that her risk is low enough that she can go home. I did offer admission as there is some risk given her history but she opted for discharge. She has an appointment with her heel blacker tomorrow. She understands to return if new or worse symptoms. Vital Signs: Vital signs: Vital Signs Pulse Rate 64 02/13/20 09:15 Respiratory Rate 18 02/13/20 09:15 Blood Pressure 119/63 02/13/20 09:15 Pulse Oximetry 96 02/13/20 09:15 MDM - Chest Pain Lab Data: Labs: Lab Results 02/13/20 02/13/20 02/13/20 Range/Units 05:21 05:21 05:40 WBC 10.0 (4.0-10.0) 10^3/ uL RBC 3.44 L (4.1-5.3) 10^6/u L Hgb 10.8 L (11.5-15.3) g/dL Hct 33.1 L (37.0-47.0) % MCV 96.2 (81-99) fL MCH 31.4 (28.0-34.0) pg MCHC 32.6 (30.0-36.0) g/dL RDW 14.6 (12.1-15.1) % Plt Count 205 (130-400) 10^3/c mm MPV 10.5 H (7.4-10.4) fL Neut % (Auto) 78.7 % Lymph % (Auto) 10.4 % Dawson % (Auto) 8.9 % Eos % (Auto) 0.8 % Baso % (Auto) 0.5 % Neut # (Auto) 7.87 H (1.8-7.7) 10^3/u L Lymph # (Auto) 1.0 (0.8-4.8) 10^3/u L Dawson # (Auto) 0.9 (0.2-0.9) 10^3/u L Eos # (Auto) 0.1 (0.0-0.8) 10^3/u L Baso # (Auto) 0.1 (0.0-0.1) 10^3/u L Nucleated RBC % (a uto) 0 % Nucleated RBCs # 0.0 /100WBC Sodium 140 (136-145) mmol/L Potassium 4.0 (3.5-5.1) mmol/L Chloride 101 (98-107) mmol/L Carbon Dioxide 24 (22-29) mmol/L Anion Gap 19.0 (5-19) BUN 29 H (8-23) mg/dL Creatinine 1.6 H (0.5-0.9) mg/dL GFR Calculation 31.9 L (90-130) mL/min Glucose 134 H (65-115) mg/dL Calculated Osmolal ity 289 (285-295) mOsm/k g Calcium 9.7 (8.5-10.5) mg/dL Total Bilirubin 0.9 (0.15-1.2) mg/dL AST 23 (0-32) U/L ALT 19 (0-33) U/L Alkaline Phosphata se 95 (35-105) IU/L Creatine Kinase 68 (26-192) U/L Troponin T Gen 5 n g/L (0-10) ng/L Troponin T Baselin e 40 H (0-10) ng/L NT-Pro-B Natriuret Pep 4341 H (0-125) pg/mL Total Protein 7.6 (6.6-8.7) g/dL Albumin 4.4 (3.5-5.2) g/dL Globulin 3.2 (1.3-4.6) g/dL 02/13/20 Range/Units 08:02 WBC (4.0-10.0) 10^3/ uL RBC (4.1-5.3) 10^6/u L Hgb (11.5-15.3) g/dL Hct (37.0-47.0) % MCV (81-99) fL MCH (28.0-34.0) pg MCHC (30.0-36.0) g/dL RDW (12.1-15.1) % Plt Count (130-400) 10^3/c mm MPV (7.4-10.4) fL Neut % (Auto) % Lymph % (Auto) % Dawson % (Auto) % Eos % (Auto) % Baso % (Auto) % Neut # (Auto) (1.8-7.7) 10^3/u L Lymph # (Auto) (0.8-4.8) 10^3/u L Dawson # (Auto) (0.2-0.9) 10^3/u L Eos # (Auto) (0.0-0.8) 10^3/u L Baso # (Auto) (0.0-0.1) 10^3/u L Nucleated RBC % (a uto) % Nucleated RBCs # /100WBC Sodium (136-145) mmol/L Potassium (3.5-5.1) mmol/L Chloride (98-107) mmol/L Carbon Dioxide (22-29) mmol/L Anion Gap (5-19) BUN (8-23) mg/dL Creatinine (0.5-0.9) mg/dL GFR Calculation (90-130) mL/min Glucose (65-115) mg/dL Calculated Osmolal ity (285-295) mOsm/k g Calcium (8.5-10.5) mg/dL Total Bilirubin (0.15-1.2) mg/dL AST (0-32) U/L ALT (0-33) U/L Alkaline Phosphata se (35-105) IU/L Creatine Kinase (26-192) U/L Troponin T Gen 5 n g/L 35 H (0-10) ng/L Troponin T Baselin e (0-10) ng/L NT-Pro-B Natriuret Pep (0-125) pg/mL Total Protein (6.6-8.7) g/dL Albumin (3.5-5.2) g/dL Globulin (1.3-4.6) g/dL Discharge Plan Discharge Patient Disposition: Home Clinical Impression: Chest pain Condition: Stable Prescriptions: No Action glipizide 5 mg tablet 5 mg PO DAILY RF: 0 Lantus Solostar U-100 Insulin 100 unit/mL (3 mL) insulin pen See Rx Instructions SUBCUT .COMPLEX RF: 0 Miralax 17 gram powder in packet 17 g PO DAILY PRN (Reason: Constipation) RF: 0 sennosides-docusate sodium 8.6-50 mg tablet 1 tab PO DAILY PRN (Reason: Constipation) RF: 0 cefuroxime axetil 500 mg tablet 500 mg PO BID Qty: 60 RF: 2 clopidogrel 75 mg Tablet 75 mg PO DAILY Qty: 30 RF: 0 Dexilant 60 mg capsule,biphase delayed releas 60 mg PO DAILY Qty: 30 RF: 0 Eliquis 5 mg Tablet 2.5 mg PO BID Qty: 30 RF: 0 fentanyl 50 mcg/hr patch 72 hour 50 mcg topical Q72H Qty: 10 RF: 0 ondansetron HCl [Zofran] 4 mg Tablet 4 mg PO BID PRN (Reason: Nausea) Qty: 30 RF: 0 nifedipine 30 mg Tablet Extended Release 30 mg PO DAILY Qty: 30 RF: 0 levothyroxine 50 mcg tablet 50 mcg PO DAILY Qty: 30 RF: 0 sertraline 25 mg tablet 25 mg PO DAILY Qty: 30 RF: 0 gabapentin 100 mg capsule 100 mg PO BEDTIME Qty: 30 RF: 0 rosuvastatin 20 mg tablet 20 mg PO BEDTIME Qty: 30 RF: 0 acetaminophen 325 mg capsule 325 mg PO QID PRN (Reason: fever or mild pain) Qty: 30 RF: 0 potassium chloride 10 mEq tablet extended release 10 meq PO DAILY RF: 0 isosorbide mononitrate 30 mg Tablet Extended Release 24 Hr 30 mg PO BID Qty: 60 RF: 0 bumetanide 1 mg Tablet 1 mg PO DAILY Qty: 30 RF: 0 Discharge Orders: Discharge Order (Routine); Ordered 02/13/20 Ordered By: Christie Peacock Referrals: Betsy Nuno DO [Primary Care Provider] - Discharge Diet: Low Fat Discharge Activity: Resume usual activity Patient Instructions: Chest Pain (ED) Activity Restrictions/Additional Instructions: Return to the emergency department if further episodes of chest pain or other symptoms which are concerning. Follow-up with Dr. Fleming tomorrow as scheduled. Discharge Date/Time: 02/13/20 09:17 Coding Level of Care Code ED Inventory And Pricing Associate for Kendall Fwolivia Exam Comprehensive
--- NOTE | 2020-02-13 07:11 | ECG_ITS ---
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 Measurements Intervals [place] Rate: 62 P: 33 NE: 245 QRS: 53 QRSD: 138 T: -40 QT: 449 QTc: 458 Interpretive Statements SINUS RHYTHM WITH FIRST DEGREE AV BLOCK RIGHT BUNDLE BRANCH BLOCK [120+ ms QRS DURATION, UPRIGHT V1, 40+ ms S IN I/aVL/V4/V5/V6] MODERATE T-WAVE ABNORMALITY, CONSIDER INFERIOR ISCHEMIA [-0.1+ mV T WAVE IN II/aVF] Compared to ECG 02/13/2020 05:17:20 First degree AV block now present T-wave abnormality still present Possible ischemia still present Electronically Signed On 02-14-2020 0:34:20 CDT by Emily Rome M.D. [id number]
[2020-02-13 08:17] LABS: Troponin T (5th) Once 35 ng/L (0-10)
[2020-02-13 09:13] VITALS: BP 119/63; PULSE 64; RESP 18; O2SAT 96
[2020-02-13 09:15] VITALS: BP 119/63; PULSE 64; RESP 18; O2SAT 96
== END 2020-02-13 09:17 | disposition home or self-care (01) ==
PROVIDERS: Emergency Medicine; Emergency Provider Emergency Medicine; PCP Family Medicine
DX: R07.9 Chest pain, unspecified (principal); Z79.01 Long term (current) use of anticoagulants; Z79.02 Long term (current) use of antithrombotics/antiplatelets; Z79.4 Long term (current) use of insulin; I48.91 Unspecified atrial fibrillation; I25.10 Atherosclerotic heart disease of native coronary artery without angina pectoris; I11.0 Hypertensive heart disease with heart failure; I50.9 Heart failure, unspecified; E11.9 Type 2 diabetes mellitus without complications; E78.5 Hyperlipidemia, unspecified; Z87.891 Personal history of nicotine dependence
CPT/HCPCS: 12345; 71045; 80053; 82550; 83880; 84484; 85025; 93005; 96374; 96375; 99283; J2270; J2405

== ENCOUNTER → 2020-02-24 11:00 | Outpatient (BNVA) | payer MEDICARE, MEDICAID, SELFPAY | PROVIDERS: PCP Family Medicine; Visit Provider Internal Medicine | DX: Z11.59 Encounter for screening for other viral diseases (principal) | CPT/HCPCS: 87635 ==

== ENCOUNTER 2020-02-28 08:46 | Observation (INO) | payer MEDICARE, MEDICAID, SELFPAY ==
[2020-02-24 12:43] VITALS: BMI 40.4
[2020-02-24 13:10] LABS: Basophils % 0.5 %; Eosinophils # 0.2 10^3/uL (0.0-0.8); Eosinophils % 2.8 %; Hematocrit 33.8 % (37.0-47.0); Hemoglobin 11.3 g/dL (11.5-15.3); Lymphocytes # 1.3 10^3/uL (0.8-4.8); Lymphocytes % 17.9 %; Mean Corpuscular HGB Conc 33.4 g/dL (30.0-36.0); Mean Corpuscular Hemoglobin 32.1 pg (28.0-34.0); Mean Platelet Volume 10.5 fL (7.4-10.4); Monocytes # 0.9 10^3/uL (0.2-0.9); Monocytes % 11.5 %; Neutrophils # 5.03 10^3/uL (1.8-7.7); Nucleated Red Blood Cells % 0 %; Platelet Count 204 10^3/cmm (130-400); Red Blood Count 3.52 10^6/uL (4.1-5.3); Red Cell Distribution Width 14.4 % (12.1-15.1); White Blood Count 7.5 10^3/uL (4.0-10.0)
--- NOTE | 2020-02-24 13:10 | P.ANESASSM_ITS ---
Pre-Anesthetic Assessment Pre-Anesthetic Assessment: Height/Weight: Height 1.5 m Weight 90.718 kg Preop Diagnosis: Type II heart block Proposed Procedure: Operation Date: 02/28/20 07:00 Proposed Procedures p Pacemaker Insertion(Not Applicable) - Matt Shi MD Familial anesthetic complications: None Social: Social History: No alcohol and No tobacco Exam: Pre-Anes Outpt Exam: alert, oriented x 3, clear to auscultation bilaterally and regular rate & rhythm Airway: Cervical ROM: WNL MP: 2 Dentition: Other (missing) Pulmonary: Pulmonary: Sleep apnea (cpap) CV/HEM: CV/HEM: Afib, CAD (stents placed 2 months ago (RCA)), CHF, HTN and [place] Comments: aortic stenosis will stop eliquis 2 days before : Comments: ARF d/t contrast dye GI: GI: GERD Metabolic: Metabolic: DM, Hyperlipidemia and Morbid obesity Anesthetic Plan: ASA status: 4 Anesthesia: MAC Risk of > 500 ml blood loss (7ml/kg in children): No PFSH Anesthesia PFSH: Medical History (Updated 02/21/20 @ 00:02 by ) Anticoagulation adequate with anticoagulant therapy Aortic stenosis Atrial fibrillation by electrocardiogram CAD (coronary artery disease) CHF (congestive heart failure) Dental caries Diabetes DJD (degenerative joint disease) Gastroenteritis GERD (gastroesophageal reflux disease) HTN (hypertension) Hypercholesterolemia Hyperlipidemia Morbid obesity Recurrent UTI Long history of recurrent UTIs suspicious for CHRONIC CYSTITIS. ESBL E. coli documented in 2019. Rhabdomyolysis Urinary incontinence Surgical History History of cardiac catheterization History of hernia repair History of hip surgery History of hysterectomy History of knee surgery History of sinus surgery History of tonsillectomy History of umbilical hernia repair Family History Father , in his 60's Lung disease Mother , 99 Hypertension Other Diabetes Stroke Denies family history of CAD (coronary artery disease) Clotting disorder Dementia Chronic kidney disease (CKD) Social History Smoking and tobacco status: never smoked Quit status (tobacco): has quit using tobacco Former quit date comment: Smoking in her 20s Alcohol intake: never Caregiver/support person: Yes (Home health services Friday) Lives independently: Yes Housing: House Marital status: Current occupational status: retired History of recent travel: No Current gender identity: Female Data Anesthesia CBC & Chem 7: 02/24/20 13:00 02/24/20 13:00 Other Labs: Laboratory Results - last 48 hr 02/24/20 13:00 WBC 7.5 RBC 3.52 L Hgb 11.3 L Hct 33.8 L MCV 96.0 MCH 32.1 MCHC 33.4 RDW 14.4 Plt Count 204 MPV 10.5 H Neut % (Auto) 67.0 Lymph % (Auto) 17.9 [place] % (Auto) 11.5 Eos % (Auto) 2.8 Baso % (Auto) 0.5 Neut # (Auto) 5.03 Lymph # (Auto) 1.3 [place] # (Auto) 0.9 Eos # (Auto) 0.2 Baso # (Auto) 0.0 Nucleated RBC % (auto) 0 Nucleated RBCs # 0.0 Cardiac Studies: Holter Monitor 02/15/20
[2020-02-24 13:27] LABS: INR 1.12 (0.8-1.2)
[2020-02-24 13:29] LABS: Blood Urea Nitrogen 37 mg/dL (8-23); Calcium 9.7 mg/dL (8.5-10.5); Carbon Dioxide 28 mmol/L (22-29); Chloride 96 mmol/L (98-107); Glomerular Filtration Rate 26.1 mL/min (90-130); Glucose 182 mg/dL (65-115); Osmolality Calculated 286 mOsm/kg (285-295); Sodium 137 mmol/L (136-145)
[2020-02-24 14:49] LABS: Add Urine Microscopic? YES; Bilirubin Urine Neg (Negative); Blood Urine Neg (Negative); Glucose Urine UA Norm (Normal); Ketones Urine Negative (Negative); Leukocyte Esterase Urine Negative (Negative); Nitrate Urine Negative (Negative); Protein Urine Neg (Negative); Urine Appearance Hazy (CLEAR); Urine Color Yellow (Yellow); Urobilinogen Urine Norm (Negative); pH Urine 7 (5-7)
[2020-02-24 15:08] LABS: Bacteria Urine 2+ /hpf; Squamous Epithelial Cell Urine 15-25 /hpf (0-5)
[2020-02-24 15:09] LABS: Add Urine Culture? No; Hyaline Casts Urine 0-4 /lpf
[2020-02-28] VITALS (20 sets, daily range): BP systolic 104–187; BP diastolic 58–82; PULSE 63–89; RESP 14–24; TEMP 36.1–37.1; O2SAT 94–100
--- NOTE | 2020-02-28 | SCC_ITS ---
Procedure Done: Dual-chamber pacemaker implantation 73.6 seconds of fluoroscopic guidance, for a cumulative dose of 29.83 mGy, was provided to Dr. Shi by the radiology department. C-arm images of the chest were saved for the patient's permanent record. [facility]
--- NOTE | 2020-02-28 | XR_ITS ---
WS: [id number] EXAM: AP CHEST: PORTABLE UPRIGHT DATE OF EXAM: 02/28/2020, 0857 hours COMPARISON: Chest x-ray from 02/13/2020 HISTORY: Patient is 69 years old with new pacemaker placement. FINDINGS: The cardiac silhouette is normal in size. The mediastinal contours show interval placement of a le ft subclavian dual-lead pacer with leads ending in the right ventricle and right atrium. No widening of the mediastinum. The pulmonary vascularity is normal. Chronic lung changes demonstrated. Lungs are clear of consolidation. There is no effusion or pneumothorax. No acute bony abnormality is seen . Overall bone density is decreased. Degenerative changes in the spine as well as in the left should er. XR/XR chest 1V [id number] IMPRESSION: New left subclavian double lead pacer. No pneumothorax. No acute pulmonary dise ase.
--- NOTE | 2020-02-28 | SC_ITS ---
WS: [id number] EXAM: FLUOROSCOPY FOR VISUALIZATION DURING PACEMAKER PLACEMENT DATE OF EXAMINATION: 02/28/2020, 0554 hours COMPARISON: Chest x-ray from 02/13/2020. HISTORY: Patient is 69 years old with cardiac arrhythmia. FLUOROSCOPY TIME: 73.6 seconds FINDINGS: Fluoroscopy was provided to the cardiology service for visualization during double lead pacemaker edy cement. Please see operative report for further details. SC/C-arm FL for Pacemaker IMPRESSION: Fluoroscopy provided to the cardiology service for visualization during pacemak er lead placement.
--- NOTE | 2020-02-28 06:34 | W.PM.OPSUD ---
Surgery/Procedure H&P Update DATE OF PROCEDURE: February 28, 2020 DATE H&P PERFORMED: 02/14/20 H&P UPDATE INFORMATION: I have reviewed H&P completed within last 30 days, I have examined patient prior to procedure and No changes to prior documentation CHANGES TO PREVIOUS DOCUMENTATION: We had a phone conversation with Dr. Morelos this morning to confirm that she has not had any type of intervention or stent placement in the last several months (greater than 6 months). PREOP DIAGNOSIS: Type II heart block PRIMARY INDICATION FOR PROCEDURE: Sinus pauses up to 3 seconds and need for beta-blockade secondary to non-STEMI PLANNED PROCEDURE: Operation Date: 02/28/20 07:00 Proposed Procedures p Pacemaker Insertion(Not Applicable) - Matt Shi MD
[2020-02-28] MEDS: sodium chloride 0.9% 1,000 ML 75 ML IV ×3 (06:37→23:39)
[2020-02-28 06:41] LABS: Glucose Point of Care 146 mg/dL (70-110)
[2020-02-28] MEDS: ceFAZolin 1,000 mg SDV 1000 MG IRRIGATION (07:05)
[2020-02-28] MEDS: lidocaine 1% INJ 50 mL INJECTION (07:28)
--- NOTE | 2020-02-28 08:44 | P.OP_ITS ---
Operative Report Date of procedure: February 28, 2020 Pre-op Diagnosis: Type II heart block Post-op diagnosis: same Procedure Done: Dual-chamber pacemaker implantation Implants: Atrial ventricular leads and pacemaker generator Pathology: none sent Surgeon: Matt Shi Anesthesia: MAC and Local Complications: Study: Post procedure chest x-ray reveals appropriate lead placement no evidence for pneumothorax Findings: Fluoroscopy utilized for guidewire, sheath, and leads advancement and positioning. Condition: stable Disposition: PACU Brief History: 69-year-old female with documented sinus pauses up to 3 seconds as well as Mobitz type II AV heart block with recent admission for non-STEMI. Beta-blockade is been recommended, and therefore dual-chamber pacemaker implantation was recommended by Dr. Morelos allow for maximal medical management. Details of risk the procedure were carefully and frankly discussed with Ms. Jenn quinonez. A proper consents have been reviewed and signed. Procedure: Procedure: Ms. Montalvo was taken to the OR suite and placed in the supine position over a shoulder roll. She received conscious sedation with continuous anesthesia monitoring by. Her entire chest was sterilely prepped and draped. 1% lidocaine was infiltrated in the left subclavicular region. While in Trendelenburg position, utilizing modified seldinger technique, 2 guidewires were placed in the left subclavian vein. This was confirmed in position by fluoroscopy. Next, after infiltration with lidocaine, a subcutaneous pocket was created beginning from the exit point of the guidewire and extending laterally and inferiorly. Cautery was utilized to create the pocket just above the pectoralis musculature. Hemostasis was confirmed. An antibiotic-soaked sponge was placed in the wound. A dilator and tear-away sheath was placed over the first guidewire and advanced under fluoroscopy. Guidewire and dilator were removed. Next using a combination of curved and straight stylettes, the right ventricular lead was placed in position by fluoroscopy. The distal screw was ex tended. Interrogation was then performed confirming appropriate parameters. The tear-away sheath was then removed and the ventricular lead was sewn to the floor of the subcutaneous pocket. In a similar fashion dilator and tear-away sheath was placed over the 2nd guide wire and advanced under fluoroscopy. Guidewire and dilator were removed. Straight and curved stylettes were used to position the right atrial lead with fluoroscopy. Distal screw was extended. Interrogation was then performed. Tear-away sheath was then removed. Atrial lead was secured to the floor of the subcutaneous pocket. Pocket was irrigated with antibiotic solution and hemostasis again confirmed. Pacing generator was brought into the field, and after confirmation of hemostasis in the subcutaneous pocket, the leads were connected to the generator with appropriate capture. The entire system was interrogated by fluoroscopy. Leads and generator were secured in the pocket. Sponge and needle count was correct. The wound was then closed in 2 layers of 3-0 Vicryl suture. Skin was reapproximated in a subcuticular manner with 4-0 Monocryl suture. A pressure dressing was applied. The left arm was placed in a sling. The patient had equal breath sounds bilaterally. She was then transferred to the PACU, where chest x-ray was performed and revealed no evidence for pneumothorax and appropriate lead positioning. We have attempted multiple times to contact her brother both during and after the procedure and have been unable to successfully contact him via phone. We have also looked on campus without luck. We will continue to attempt. Following are the specifics of this system: Right ventricular lead is 52 cm and model 5076. Serial number [id number] Right atrial lead is 45 cm and is model 5076. Serial number [id number]. Ventricular lead had sensing of 5.1 mV with an impedance of 589 ohms. Threshold was 0.5 V Atrial lead had sensing of 1.6 mV with an impedance of 437 ohms. Threshold was 1.0 V. [facility] generator: Model # [id number] Serial #[id number]
[2020-02-28] MEDS: hyDRALAzine 20 mg/mL INJ 1 mL 5 MG IVP (09:11)
--- NOTE | 2020-02-28 09:20 | PM.PACU ---
PACU note Post-Anesthesia Exam: awake and vital signs stable Disposition: admitted
[2020-02-28] MEDS: potassium chloride ER 10 mEq Tablet PO (09:57)
[2020-02-28] MEDS: isosorbide mononitrate ER 30 mg Tablet PO ×2 (09:57→18:16)
[2020-02-28] MEDS: bumetanide 1 mg Tablet PO (09:58)
[2020-02-28] MEDS: pantoprazole DR 40 mg Tablet PO (09:58)
[2020-02-28] MEDS: levothyroxine 50 mcg Tablet PO (09:58)
--- NOTE | 2020-02-28 10:16 | PC.NURSE ---
called pacu to verify for post pacemaker chest xray talked to applications architect Billie and jihan and said xray was done in the OR.
[2020-02-28] MEDS: HYDROcodone-acetaminophen 5-325 mg Tablet 1 TAB PO ×4 (10:22→23:38)
[2020-02-28] MEDS: levoFLOXacin 500 mg Tablet PO (10:24)
[2020-02-28 11:03] LABS: Glucose Point of Care 191 mg/dL (70-110)
--- NOTE | 2020-02-28 11:44 | PC.NURSE ---
Fentanyl patch Pt has a Fentanyl patch applied on her left upper arm, dose of 50 mcg. Pt reported she applied it yesterday at home and pt verified it she has to leave it for 3 days. scheduled fentanyl patch non-admin here.
--- NOTE | 2020-02-28 13:06 | PC.CHAP ---
Pastoral Care Encounter/Spiritual Assessment Type of Contact [] Declined car parker visit [] Patient/Family/Request visit [] Outpatient visit [] Follow-up visit [] Physician referral [] Code/Alert [] Routine visit [] Staff referral [] Actively dying [] Patient sleeping [] Family support [] [] Out of room [] Palliative care [] [x] Receiving care in room [] Pre-surgical visit [] Trauma [] Long length of stay [] ICU visit [] Other: Relational/Emotional Strength [] Patient feels connected with others/family/visitors/staff [] Distress [] Loneliness/isolation [] Abandonment Spirituality of Patient [] Person of Shira [] Attends [employer] of their Shira [] Believes in Prayer [] Reads Bible or Restoration materials [] There are Spiritual issues to be addressed Auto Garage Attendant Interventions [] Prayer [] Active listening [] Non-anxious presence [] Spiritual/emotional support [] Crisis/trauma care [] Spiritual counseling [] Bereavement support [] Provided bereavement packet [] Provided Bible/devotional materials [] Provided toy/stuffed animal, coloring book to patient or family member [] Provided Communion [] Anointing/[place] [] Salvation [] Completed spiritual assessment [] Other: Impact on Illness or Injury [] Angry [] Fearful [] Anxious [] Often cries [] Exhaustion [] Unable to work [] Unable to attend religion [] Unable to walk/stand [] Unable to read [] Unable to drive [] Unable to eat/drink [] Unable to sleep [] Unable to be with family [] Patient intubated [] Other: Summary Patient was receiving care from the nursing staff at the time of the car parker visit. Referred patient for a follow- up visit from the next car parker. Patient visit attempted by Auto Garage Attendant Yogesh Kerr. Time spent with patient 3 minutes
--- NOTE | 2020-02-28 13:41 | ECG_ITS ---
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 Measurements Intervals [place] Rate: 78 P: 29 SC: 221 QRS: 52 QRSD: 142 T: -51 QT: 418 QTc: 478 Interpretive Statements SINUS RHYTHM WITH FIRST DEGREE AV BLOCK RIGHT BUNDLE BRANCH BLOCK [120+ ms QRS DURATION, UPRIGHT V1, 40+ ms S IN I/aVL/V4/V5/V6] MODERATE T-WAVE ABNORMALITY, CONSIDER LATERAL ISCHEMIA [-0.1+ mV T WAVE IN I/aVL/V5/V6] MODERATE T-WAVE ABNORMALITY, CONSIDER INFERIOR ISCHEMIA [-0.1+ mV T WAVE IN II/aVF] Compared to ECG 02/13/2020 07:23:11 No significant changes Electronically Signed On 02-28-2020 20:53:07 CDT by Ruchi Estrada M.D. [id number]
[2020-02-28 17:00] LABS: Glucose Point of Care 188 mg/dL (70-110)
[2020-02-28] MEDS: atorvastatin 40 mg Tablet 80 MG PO (19:40)
[2020-02-28] MEDS: gabapentin 100 mg Capsule PO (19:41)
[2020-02-28 20:25] LABS: Glucose Point of Care 166 mg/dL (70-110)
[2020-02-29 00:20] VITALS: BP 115/54; PULSE 70; RESP 19; O2SAT 95
[2020-02-29 03:24] VITALS: BP 129/68; PULSE 75; RESP 18; TEMP 37.1; O2SAT 94
[2020-02-29] MEDS: HYDROcodone-acetaminophen 5-325 mg Tablet 1 TAB PO ×2 (03:40→09:11)
--- NOTE | 2020-02-29 06:00 | ECG_ITS ---
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 Measurements Intervals [place] Rate: 64 P: -9 CA: 242 QRS: 29 QRSD: 139 T: -22 QT: 447 QTc: 463 Interpretive Statements SINUS RHYTHM WITH FIRST DEGREE AV BLOCK RIGHT BUNDLE BRANCH BLOCK POSSIBLE ANTERIOR MYOCARDIAL INFARCTION, OF INDETERMINATE AGE Compared to ECG 02/28/2020 13:15:33 Myocardial infarct finding now present T-wave abnormality no longer present Possible ischemia no longer present Electronically Signed On 02-29-2020 14:58:10 CDT by Patricia Morelos M.D. [id number]
[2020-02-29 06:25] LABS: Glucose Point of Care 119 mg/dL (70-110)
[2020-02-29] MEDS: levoFLOXacin 250 mg Tablet PO (07:12)
--- NOTE | 2020-02-29 07:57 | P.PN_ITS ---
Subjective Subjective: Interval history: POD #1 status post dual-chamber pacemaker implantation. Uneventful night. In good spirits on rounds this morning. Left shoulder discomfort at the pacemaker site no no substantial swelling or evidence for fluid collection. Outer dressing removed. Inner dressing dry. Vitals/I&O/Wt Last Vital Signs Temp 98.7 F 02/29/20 03:24 Pulse 75 02/29/20 03:24 Resp 18 02/29/20 03:24 BP 129/68 02/29/20 03:24 Pulse Ox 94 02/29/20 03:24 02/28/20 02/29/20 02/29/20 22:59 06:59 14:59 Intake Total 406 / 816 1047.5 / 1863.5 Balance 406 / 791 1047.5 / 1838.5 Physical Exam Chest: OTHER: Outer surgical dressing removed. Inter-dressing dry. No substantial fluid collection or swelling. No ecchymosis. Resp: COMMON NORMALS: normal respiratory effort and clear to auscultation bilaterally EFFORT & INSPECTION: Yes able to speak in complete sentences AUSCULTATION: clear to auscultation bilaterally Data : 02/24/20 13:00 02/24/20 13:00 A&P Assessment and plan (1) Status post placement of cardiac pacemaker: Postop day #1 status post dual-chamber pacemaker implantation. Morning interrogation completed. Plan to discharge to home today with follow-up in heart care services in 1 week at the pacemaker clinic. Stable discharge. Status: Acute Attestations Medical Necessity Statement*: Status post dual-chamber pacemaker implantation Time Spent in Patient Care: less than 15 minutes Coding Level of Care Code Acute Shipping And Receiving Associate for Chg Fwd Diagnoses Status post placement of cardiac pacemaker Z95.0
--- NOTE | 2020-02-29 08:06 | P.DS_ITS ---
Discharge Providers Date of Admission: 02/28/20 08:46 Date of Discharge: February 29, 2020 Attending Provider at Admission: Matt Shi MD Attending Provider at Discharge: Matt Shi MD Primary Care Provider: Betsy Nuno DO Diagnoses at Discharge Discharge Diagnosis (1) Status post placement of cardiac pacemaker: Status: Acute Reason for Visit Reason for Visit: PACEMAKER Hospital Course Hospital Course: Ms. Montalvo was electively admitted for planned dual-chamber pacemaker implantation after recent hospitalization for non-STEMI. Beta- blockade is been recommended but has been relatively contraindicated due to documented sinus pauses of up to 3 seconds and Mobitz type II AV heart block. To allow for appropriate medical management, pacemaker implantation has been recommended by Dr. Morelos. Rationale was carefully discussed with her and she was in agreement. She was electively admitted underwent dual-chamber pacemaker implantation yesterday. Postoperatively she has done well with stable vital signs and good pacemaker function. Interrogation has been completed this morning. She has only modest postoperative discomfort. She is in good spirits. Vital signs have been stable. Outer dressing has been removed. Inner dressing is dry. She will be discharged to home today in stable condition for scheduled follow-up in heart care clinic in 3 days on March 03. Physical Exam Chest: COMMONS NORMALS: normal inspection of the chest OTHER: Surgical dressing is clean and dry. Resp: COMMON NORMALS: normal respiratory effort and clear to auscultation bilaterally AUSCULTATION: clear to auscultation bilaterally Discharge Data Data Completed and Pending: Completed Studies During Hospitalization Category Date Time Status XR chest 1V 29309 Routine Exams 02/28/20 Completed Labs from last 24 hours 02/29/20 02/28/20 02/28/20 06:21 20:15 16:49 POC Glucose 119 166 188 02/28/20 10:56 POC Glucose 191 Vitals: Last Vital Signs Temp 98.7 F 02/29/20 03:24 Pulse 75 02/29/20 03:24 Resp 18 02/29/20 03:24 BP 129/68 02/29/20 03:24 Pulse Ox 94 02/29/20 03:24 Discharge Plan Discharge Patient Disposition: Home Condition: Stable Prescriptions: New hydrocodone-acetaminophen 5-325 mg Tablet 1 tab PO Q6H PRN (Reason: Moderate Pain) Qty: 12 RF: 0 Continued glipizide 5 mg tablet 5 mg PO DAILY RF: 0 Lantus Solostar U-100 Insulin 100 unit/mL (3 mL) insulin pen 12 unit SUBCUT BEDTIME RF: 0 Miralax 17 gram powder in packet 17 g PO DAILY PRN (Reason: Constipation) RF: 0 sennosides-docusate sodium 8.6-50 mg tablet 1 tab PO DAILY PRN (Reason: Constipation) RF: 0 levofloxacin 500 mg tablet 500 mg PO DAILY Qty: 4 RF: 0 Novolin R Flexpen pen injector See Rx Instructions .ROUTE .COMPLEX RF: 0 clopidogrel 75 mg Tablet 75 mg PO DAILY Qty: 30 RF: 0 Dexilant 60 mg capsule,biphase delayed releas 60 mg PO DAILY Qty: 30 RF: 0 Eliquis 5 mg Tablet 2.5 mg PO BID Qty: 30 RF: 0 fentanyl 50 mcg/hr patch 72 hour 50 mcg topical Q72H Qty: 10 RF: 0 ondansetron HCl [Zofran] 4 mg Tablet 4 mg PO BID PRN (Reason: Nausea) Qty: 30 RF: 0 nifedipine 30 mg Tablet Extended Release 30 mg PO DAILY Qty: 30 RF: 0 levothyroxine 50 mcg tablet 50 mcg PO DAILY Qty: 30 RF: 0 sertraline 25 mg tablet 25 mg PO DAILY Qty: 30 RF: 0 gabapentin 100 mg capsule 100 mg PO BEDTIME Qty: 30 RF: 0 rosuvastatin 20 mg tablet 20 mg PO BEDTIME Qty: 30 RF: 0 acetaminophen 325 mg capsule 325 mg PO QID PRN (Reason: fever or mild pain) Qty: 30 RF: 0 potassium chloride 10 mEq tablet extended release 10 meq PO DAILY RF: 0 isosorbide mononitrate 30 mg Tablet Extended Release 24 Hr 30 mg PO BID Qty: 60 RF: 0 bumetanide 1 mg Tablet 1 mg PO DAILY Qty: 30 RF: 0 Discharge Orders: Discharge Order (Routine); Ordered 02/29/20 Ordered By: Matt Shi Referrals: [facility] [Provider Group] - 03/03/20 (Pacemaker clinic for incision inspection and interrogation) Discharge Diet: Usual diet Discharge Activity: Limit activity as instructed Patient Instructions: Hydrocodone/Acetaminophen (By mouth), Pacemaker (DC), Section (DC) Activity Restrictions/Additional Instructions: Do not raise left hand above eye level for 1 week May resume Plavix and Eliquis beginning on March 02. May resume all other medications now. May remove bandage in 2 days May begin daily showers in 2 days No swimming or tub baths x 2 weeks No ointments on incision Report drainage, redness, heat, increased pain, or swelling to clinic Pain medication has been called into your local pharmacy. Discharge Attestations Time Spent in Discharge Care*: less than 30 min Specific Discharge Activities: Specific discharge activities: educating patient, discussing with machine adjuster leader case trim/social workers/dc planners, documenting/other paperwork and evaluating patient/reviewing data Status at Discharge: Cognitive status at discharge: cognitively intact , Behavioral status at discharge: cooperative , Quality Metrics Clinical Quality Measures During this hospital stay, did patient experience: None Coding Level of Care Code Acute Library Services Assistant for Kendall Fwolivia Diagnoses Status post placement of cardiac pacemaker Z95.0
[2020-02-29 08:45] VITALS: PULSE 81; O2SAT 96
[2020-02-29] MEDS: levothyroxine 50 mcg Tablet PO (09:12)
[2020-02-29] MEDS: bumetanide 1 mg Tablet PO (09:12)
[2020-02-29] MEDS: NIFEdipine ER (24 hr) 30 mg Tablet PO (09:12)
[2020-02-29] MEDS: isosorbide mononitrate ER 30 mg Tablet PO (09:12)
[2020-02-29] MEDS: pantoprazole DR 40 mg Tablet PO (09:13)
[2020-02-29] MEDS: potassium chloride ER 10 mEq Tablet PO (09:13)
[2020-02-29] MEDS: sertraline 50 mg Tablet 25 MG PO (09:13)
[2020-02-29 09:47] VITALS: PULSE 81; O2SAT 96
[2020-02-29 09:51] VITALS: BP 149/71; PULSE 68; PULSE 69; RESP 16; TEMP 36.7; TEMP 36.8; O2SAT 97
--- NOTE | 2020-02-29 10:41 | PC.NURSE ---
discharge instructions given. all questions answered. iv removed, tip intact. brother notified, waiting on arrival.
== END 2020-02-29 10:56 | disposition home or self-care (01) ==
LOC: CSU 08:47
PROVIDERS: Admitting Provider Thoracic Surgery (Cardiothoracic Vascular Surgery); PCP Family Medicine; Visit Provider Thoracic Surgery (Cardiothoracic Vascular Surgery)
PROC: (CPT 33208; principal; 2020-02-28 07:00)
DX: I44.1 Atrioventricular block, second degree (principal); I25.10 Atherosclerotic heart disease of native coronary artery without angina pectoris; I25.2 Old myocardial infarction; I11.0 Hypertensive heart disease with heart failure; I50.32 Chronic diastolic (congestive) heart failure; I48.91 Unspecified atrial fibrillation; E11.9 Type 2 diabetes mellitus without complications; E78.5 Hyperlipidemia, unspecified; E78.00 Pure hypercholesterolemia, unspecified; E66.01 Morbid (severe) obesity due to excess calories; Z79.01 Long term (current) use of anticoagulants; Z87.891 Personal history of nicotine dependence; Z95.5 Presence of coronary angioplasty implant and graft; Z79.4 Long term (current) use of insulin; Z68.41 Body mass index [BMI] 40.0-44.9, adult
CPT/HCPCS: 33208; 12345; 36415; 36416; 71045; 76000; 80048; 81001; 82962; 85025; 85610; 93005; 96361; 96365; 96366; 96372; 97166; C1779; C1786; G0378; J0360; J0690; J1815; J2250; J2704; J3010; J7030

== ENCOUNTER → 2020-03-08 14:20 | Outpatient (BNVA) | payer MEDICARE, MEDICAID, SELFPAY | PROVIDERS: PCP Family Medicine; Visit Provider Urology | DX: N39.0 Urinary tract infection, site not specified (principal) | CPT/HCPCS: 81001 ==

== ENCOUNTER 2020-04-08 21:14 | Emergency (ER) | payer MEDICARE, MEDICAID, SELFPAY ==
[2020-04-08 21:20] VITALS: BP 110/78; PULSE 90; RESP 17; O2SAT 98; BMI 40.4
--- NOTE | 2020-04-08 21:23 | XRR_ITS ---
PROCEDURE INFORMATION: Exam: XR Chest, 1 View Exam date and time: 04/08/2020 9:27 PM Age: 69 years old Clinical indication: Left-sided chest pain; Prior surgery; Surgery date: 1-6 months; Surgery type: Pacemaker; Additional info: Cp TECHNIQUE: Imaging protocol: XR of the chest Views: 1 view. COMPARISON: CR XR chest 1V [id number] 02/28/2020 8:54 AM FINDINGS: Tubes, catheters and devices: Pacemaker. Lungs: Unremarkable. No consolidation. Pleural space: Unremarkable. No pleural effusion. No pneumothorax. Heart/Mediastinum: Cardiomegaly. Bones/joints: Unremarkable. XR/XR chest 1V portable [id number] IMPRESSION: 1. Negative for infiltrate. 2. Cardiomegaly.
[2020-04-08 21:26] VITALS: BP 199/80; PULSE 70; RESP 21; TEMP 36.8; O2SAT 100
[2020-04-08 21:52] LABS: Basophils # 0.1 10^3/uL (0.0-0.1); Basophils % 0.8 %; Eosinophils # 0.2 10^3/uL (0.0-0.8); Eosinophils % 2.4 %; Hematocrit 35.7 % (37.0-47.0); Lymphocytes # 1.5 10^3/uL (0.8-4.8); Lymphocytes % 24.1 %; Mean Corpuscular HGB Conc 33.6 g/dL (30.0-36.0); Mean Corpuscular Hemoglobin 31.2 pg (28.0-34.0); Mean Corpuscular Volume 92.7 fL (81-99); Mean Platelet Volume 9.7 fL (7.4-10.4); Monocytes # 0.6 10^3/uL (0.2-0.9); Monocytes % 8.9 %; Neutrophils % 63.3 %; Nucleated Red Blood Cells % 0 %; Platelet Count 201 10^3/cmm (130-400); Red Blood Count 3.85 10^6/uL (4.1-5.3); Red Cell Distribution Width 14.3 % (12.1-15.1); White Blood Count 6.2 10^3/uL (4.0-10.0)
[2020-04-08 21:56] VITALS: BP 146/92; PULSE 65; RESP 18; O2SAT 95
--- NOTE | 2020-04-08 21:56 | W.ED.CHESTPA ---
HPI - Chest Pain General: Chief Complaint: Chest Pain Stated Complaint: CP Time Seen by Provider: 04/08/20 21:23 History of Present Illness: HPI narrative: 69-year-old female with a history of coronary disease and aortic stenosis. She had stents placed in the past. She had a pacemaker placed 2 months ago. She was at home today, and felt a sharp left-sided chest pain that radiated into her left upper back. She notes it was in excruciating pain. It was somewhat worse with a deep breathing. It is mostly gone now, but still mildly there. She was not overly short of breath with it. She was not diaphoretic or nauseated. She is experienced no prior problems with her pacemaker. She denies cough. She took 2 nitroglycerin at home without much improvement MD complaint: chest pain Pertinent past history: coronary artery disease and other Onset (ago): minute(s) Timing of current episode: constant and still present (Improving) Prior episodes: Yes Onset: during rest Pain location: left chest Pain radiation: back Quality: sharp Relieving factors: nothing Exacerbating factors: nothing Associated symptoms: Deny diaphoresis, dyspnea, fever(s), leg edema, nausea, palpitations or vomiting Treatment prior to arrival: nitroglycerin Review of Systems Const: Denies: fever(s) or diaphoresis Eyes: Denies: change in vision ENMT: Denies: odynophagia, swelling of lips/tongue or sinus pain Card: Reports: chest pain; Denies: palpitations, irregular heart rhythm, edema or swelling of feet/ankles Resp: Denies: dyspnea GI: Denies: nausea or vomiting : Denies: dysuria or hematuria Musc: Reports: back pain; Denies: neck pain Skin/Breast: Denies: rash or erythema Neuro: Denies: headache(s), dizziness, vertigo or seizure-like activity Psych: Denies: anxiety PFS ED PFSH: Medical History (Updated 04/09/20 @ 01:33 by Chaparro Ta DO) Anticoagulation adequate with anticoagulant therapy Aortic stenosis Atrial fibrillation by electrocardiogram CAD (coronary artery disease) CHF (congestive heart failure) Dental caries Diabetes DJD (degenerative joint disease) Gastroenteritis GERD (gastroesophageal reflux disease) HTN (hypertension) Hypercholesterolemia Hyperlipidemia Pacemaker Recurrent UTI Long history of recurrent UTIs suspicious for CHRONIC CYSTITIS. ESBL E. coli documented in 2019. Rhabdomyolysis Urinary incontinence Surgical History H/O colonoscopy yrs ago History of cardiac catheterization History of hernia repair History of hip surgery History of hysterectomy History of knee surgery History of sinus surgery History of tonsillectomy History of umbilical hernia repair Status post placement of cardiac pacemaker Family History Father , in his 60's Lung disease Mother , 99 Hypertension Other Diabetes Stroke Denies family history of CAD (coronary artery disease) Clotting disorder Dementia Chronic kidney disease (CKD) Anesthesia complication Bleeding disorder Social History Smoking and tobacco status: never smoked Quit status (tobacco): has quit using tobacco Former quit date comment: Smoking in her 20s Alcohol intake: never Caregiver/support person: Yes (Home health services Friday) Lives independently: Yes Housing: House Marital status: Current occupational status: retired History of recent travel: No Current gender identity: Female Physical Exam Const: GENERAL APPEARANCE: well developed ORIENTATION/CONSCIOUSNESS: Yes oriented to person, Yes oriented to place and Yes oriented to time HENMT: COMMON NORMALS: normocephalic, external ears normal and Normal external nose present HEAD & SCALP: normocephalic FACE & SINUS: normal facial exam NOSE: Normal external nose present and No nasal discharge present EXTERNAL EAR: Yes external ears normal Eye: COMMON NORMALS: Equal, round and reactive pupils present, EOMs intact bilaterally and conjunctivae normal EYELID: eyelids normal CONJUNCTIVA: Yes conjunctivae normal PUPIL: Yes Equal, round and reactive pupils present Neck/C-Spine: GENERAL: No tracheal deviation Chest: COMMONS NORMALS: normal inspection of the chest CHEST: Yes tenderness Resp: COMMON NORMALS: clear to auscultation bilaterally EFFORT & INSPECTION: No tachypneic, No respiratory distress, No retractions, No uses accessory muscles and No tracheal deviation AUSCULTATION: clear to auscultation bilaterally, no rhonchi, no wheezes and lung sounds not diminished Cardio: COMMON NORMALS: regular rate and regular rhythm RATE: regular rate RHYTHM: regular rhythm HEART SOUNDS: no murmurs PERIPHERAL PULSES: radial pulses present GI: INSPECTION: No abdominal distension AUSCULTATION: No Hyperactive bowel sounds present and No Hypoactive bowel sounds present PALPATION: No Guarding due to palpation present (GI) and No Rigid due to palpation PERCUSSION: no dullness to percussion and no tympanic to percussion Neuro: SENSORIUM/ORIENTATION: Yes oriented to person, Yes oriented to place and Yes oriented to time Psych: COMMON NORMALS: mental status grossly normal Skin: COMMON NORMALS: no rashes or lesions noted GENERAL SKIN EXAM: no rashes or lesions noted Course ED course: 69-year-old female with sharp left-sided reproducible pleuritic chest pain radiating from the front to the back. It radiates along her chest wall, and she is tender along her left chest wall, reproducing her pain. Her chest x-ray was nonspecific. Her D-dimer however was 1300. Because of this CTA was ordered. There is no pulmonary embolus. No infiltrate or other problem. She had a pacemaker placed 2 months ago. It is functioning appropriately with intact wiring. There is no evidence of abscess or problem with the pacer site on CT. Her troponin did not elevate at 2 hours. Her EKG showed a right bundle branch block. Vital Signs: Vital signs: Vital Signs Temperature 98.3 F 04/08/20 21:26 Pulse Rate 65 04/09/20 01:00 Respiratory Rate 18 04/09/20 01:00 Blood Pressure 118/81 04/09/20 01:00 Pulse Oximetry 94 04/09/20 01:00 MDM - Chest Pain Lab Data: Labs: Lab Results 04/08/20 04/08/20 04/08/20 Range/Units 21:35 21:35 21:35 WBC 6.2 (4.0-10.0) 10^3/ uL RBC 3.85 L (4.1-5.3) 10^6/u L Hgb 12.0 (11.5-15.3) g/dL Hct 35.7 L (37.0-47.0) % MCV 92.7 (81-99) fL MCH 31.2 (28.0-34.0) pg MCHC 33.6 (30.0-36.0) g/dL RDW 14.3 (12.1-15.1) % Plt Count 201 (130-400) 10^3/c mm MPV 9.7 (7.4-10.4) fL Neut % (Auto) 63.3 % Lymph % (Auto) 24.1 % Mclennan % (Auto) 8.9 % Eos % (Auto) 2.4 % Baso % (Auto) 0.8 % Neut # (Auto) 3.90 (1.8-7.7) 10^3/u L Lymph # (Auto) 1.5 (0.8-4.8) 10^3/u L Mclennan # (Auto) 0.6 (0.2-0.9) 10^3/u L Eos # (Auto) 0.2 (0.0-0.8) 10^3/u L Baso # (Auto) 0.1 (0.0-0.1) 10^3/u L Nucleated RBC % (a uto) 0 % Nucleated RBCs # 0.0 /100WBC PT 14.80 (12.1-14.9) SECO NDS INR 1.12 (0.8-1.2) APTT 30.5 (23.9-36.7) SECO NDS D-Dimer (0-0.59) ug/mIFE U Sodium 138 (136-145) mmol/L Potassium 4.1 (3.5-5.1) mmol/L Chloride 99 (98-107) mmol/L Carbon Dioxide 27 (22-29) mmol/L Anion Gap 16.1 (5-19) BUN 46 H (8-23) mg/dL Creatinine 1.4 H (0.5-0.9) mg/dL GFR Calculation 37.2 L (90-130) mL/min Glucose 144 H (65-115) mg/dL Calculated Osmolal ity 300 H (285-295) mOsm/k g Calcium 9.5 (8.5-10.5) mg/dL Total Bilirubin 0.6 (0.15-1.2) mg/dL AST 13 (0-32) U/L ALT 13 (0-33) U/L Alkaline Phosphata se 118 H (35-105) IU/L Creatine Kinase 66 (26-192) U/L Troponin T Baselin e (0-10) ng/L Troponin T 120 Min tangirnaq (0-10) ng/L Delta Troponin T (0-10) ABS# NT-Pro-B Natriuret Pep 1439 H (0-125) pg/mL Total Protein 7.4 (6.6-8.7) g/dL Albumin 4.4 (3.5-5.2) g/dL Globulin 3.0 (1.3-4.6) g/dL 04/08/20 04/08/20 04/08/20 Range/Units 21:35 21:35 23:15 WBC (4.0-10.0) 10^3/ uL RBC (4.1-5.3) 10^6/u L Hgb (11.5-15.3) g/dL Hct (37.0-47.0) % MCV (81-99) fL MCH (28.0-34.0) pg MCHC (30.0-36.0) g/dL RDW (12.1-15.1) % Plt Count (130-400) 10^3/c mm MPV (7.4-10.4) fL Neut % (Auto) % Lymph % (Auto) % Mclennan % (Auto) % Eos % (Auto) % Baso % (Auto) % Neut # (Auto) (1.8-7.7) 10^3/u L Lymph # (Auto) (0.8-4.8) 10^3/u L Mclennan # (Auto) (0.2-0.9) 10^3/u L Eos # (Auto) (0.0-0.8) 10^3/u L Baso # (Auto) (0.0-0.1) 10^3/u L Nucleated RBC % (a uto) % Nucleated RBCs # /100WBC PT (12.1-14.9) SECO NDS INR (0.8-1.2) APTT (23.9-36.7) SECO NDS D-Dimer 1.35 H (0-0.59) ug/mIFE U Sodium (136-145) mmol/L Potassium (3.5-5.1) mmol/L Chloride (98-107) mmol/L Carbon Dioxide (22-29) mmol/L Anion Gap (5-19) BUN (8-23) mg/dL Creatinine (0.5-0.9) mg/dL GFR Calculation (90-130) mL/min Glucose (65-115) mg/dL Calculated Osmolal ity (285-295) mOsm/k g Calcium (8.5-10.5) mg/dL Total Bilirubin (0.15-1.2) mg/dL AST (0-32) U/L ALT (0-33) U/L Alkaline Phosphata se (35-105) IU/L Creatine Kinase (26-192) U/L Troponin T Baselin e 36 H (0-10) ng/L Troponin T 120 Min tangirnaq 35.95 H (0-10) ng/L Delta Troponin T -0.05 L (0-10) ABS# NT-Pro-B Natriuret Pep (0-125) pg/mL Total Protein (6.6-8.7) g/dL Albumin (3.5-5.2) g/dL Globulin (1.3-4.6) g/dL Discharge Plan Discharge Patient Disposition: Home Clinical Impression: Chest pain Qualifiers: Chest pain type: unspecified Qualified Code(s): R07.9 - Chest pain, unspecified Condition: Stable Prescriptions: Continued hydrocodone-acetaminophen 5-325 mg Tablet 1 tab PO Q6H PRN (Reason: Moderate Pain) Qty: 12 RF: 0 No Action cefuroxime axetil 250 mg tablet 250 mg PO BID 15 Days Qty: 30 RF: 3 glipizide 5 mg tablet 5 mg PO DAILY RF: 0 Lantus Solostar U-100 Insulin 100 unit/mL (3 mL) insulin pen 12 unit SUBCUT BEDTIME RF: 0 Miralax 17 gram powder in packet 17 g PO DAILY PRN (Reason: Constipation) RF: 0 sennosides-docusate sodium 8.6-50 mg tablet 1 tab PO DAILY PRN (Reason: Constipation) RF: 0 Novolin R Flexpen pen injector See Rx Instructions .ROUTE .COMPLEX RF: 0 clopidogrel 75 mg Tablet 75 mg PO DAILY Qty: 30 RF: 0 Dexilant 60 mg capsule,biphase delayed releas 60 mg PO DAILY Qty: 30 RF: 0 Eliquis 5 mg Tablet 2.5 mg PO BID Qty: 30 RF: 0 fentanyl 50 mcg/hr patch 72 hour 50 mcg topical Q72H Qty: 10 RF: 0 ondansetron HCl [Zofran] 4 mg Tablet 4 mg PO BID PRN (Reason: Nausea) Qty: 30 RF: 0 nifedipine 30 mg Tablet Extended Release 30 mg PO DAILY Qty: 30 RF: 0 levothyroxine 50 mcg tablet 50 mcg PO DAILY Qty: 30 RF: 0 sertraline 25 mg tablet 25 mg PO DAILY Qty: 30 RF: 0 gabapentin 100 mg capsule 100 mg PO BEDTIME Qty: 30 RF: 0 rosuvastatin 20 mg tablet 20 mg PO BEDTIME Qty: 30 RF: 0 acetaminophen 325 mg capsule 325 mg PO QID PRN (Reason: fever or mild pain) Qty: 30 RF: 0 potassium chloride 10 mEq tablet extended release 10 meq PO DAILY RF: 0 isosorbide mononitrate 30 mg Tablet Extended Release 24 Hr 30 mg PO BID Qty: 60 RF: 0 bumetanide 1 mg Tablet 1 mg PO DAILY Qty: 30 RF: 0 Discharge Orders: Discharge Order (Routine); Ordered 04/09/20 Ordered By: Chaparro Ta Referrals: Betsy Nuno DO [Primary Care Provider] - 4-7 days Discharge Diet: Advance as tolerated Discharge Activity: Increase activity as tolerated Patient Instructions: Chest Pain - Chest Wall, Chest Pain (ED) Activity Restrictions/Additional Instructions: Return for worsening pain despite treatment, fever greater than 100, cough, shortness of breath, other concerning symptoms. Coding Level of Care Code ED Electrical Research Engineer for Yaneg Fwd Exam Comprehensive
[2020-04-08] MEDS: nitroglycerin 1 gm/inch oint Pkt 1.5 INCH TOPICAL (22:03)
[2020-04-08 22:06] LABS: INR 1.12 (0.8-1.2); Partial Thromboplastin Time 30.5 SECONDS (23.9-36.7)
[2020-04-08] MEDS: amlodipine 10 mg Tablet PO (22:07)
[2020-04-08] MEDS: labetalol 5 mg/mL SDV 20mL 20 MG IVP (22:08)
[2020-04-08 22:13] LABS: Troponin(5th) Baseline 36 ng/L (0-10)
--- NOTE | 2020-04-08 22:19 | PC.NURSE ---
[employer] called with results of interrogation: pacer is working within normal limits with no reported events since last check on 03-06-20
[2020-04-08 22:23] LABS: Alanine Aminotransferase 13 U/L (0-33); Albumin Level 4.4 g/dL (3.5-5.2); Alkaline Phosphatase 118 IU/L (35-105); Anion Gap 16.1 (5-19); Aspartate Amino Transferase 13 U/L (0-32); Blood Urea Nitrogen 46 mg/dL (8-23); Calcium 9.5 mg/dL (8.5-10.5); Carbon Dioxide 27 mmol/L (22-29); Chloride 99 mmol/L (98-107); Creatine Phosphokinase 66 U/L (26-192); Creatinine Clr Calc Pharmacy 53.5488; Glomerular Filtration Rate 37.2 mL/min (90-130); Glucose 144 mg/dL (65-115); NT Pro B Type Natriuretic Pept 1439 pg/mL (0-125); Osmolality Calculated 300 mOsm/kg (285-295); Potassium 4.1 mmol/L (3.5-5.1); Sodium 138 mmol/L (136-145); Total Bilirubin 0.6 mg/dL (0.15-1.2); Total Protein 7.4 g/dL (6.6-8.7)
[2020-04-08 22:46] LABS: D Dimer 1.35 ug/mIFEU (0-0.59)
[2020-04-08 23:11] VITALS: BP 125/65; PULSE 69; RESP 16; O2SAT 96
--- NOTE | 2020-04-08 23:21 | CTR_ITS ---
PROCEDURE INFORMATION: Exam: CT Angiography Chest With Contrast Exam date and time: 04/08/2020 11:27 PM Age: 69 years old Clinical indication: Left-sided chest pain; Prior surgery; Surgery date: 1-6 months; Surgery type: Pacer; Patient HX: C/O L sided cp w elev d-dimer TECHNIQUE: Imaging protocol: Computed tomographic angiography of the chest with intravenous contrast. 3D rendering (Not supervised by radiologist): MIP and/or 3D reconstructed images were created by the technologist. Radiation optimization: All CT scans at this facility use at least one of these dose optimization techniques: automated exposure control; mA and/or kV adjustment per patient size (includes targeted exams where dose is matched to clinical indication); or iterative reconstruction. Contrast material: VISI 320; Contrast volume: 72 ml; Contrast route: INTRAVENOUS (IV); COMPARISON: CT chest wo con [id number] 04/22/2018 2:06 PM RADIATION DOSE METRICS: Total DLP (mGy-cm): 560.44 FINDINGS: Pulmonary arteries: Normal. No pulmonary emboli. Aorta: Unremarkable. No aortic aneurysm. No aortic dissection. Lungs: Unremarkable. No consolidation. No masses. Pleural space: Right upper lobe anterior segment pleural scarring Heart: Coronary artery atherosclerotic calcifications. Lymph nodes: Unremarkable. No enlarged lymph nodes. Gallbladder and bile ducts: Cholelithiasis. Bones/joints: Unremarkable. No acute fracture. Soft tissues: Unremarkable. CT/CT angio chest PE protcl [id number] IMPRESSION: 1. Negative for pulmonary embolus or airspace infiltrate. 2. Coronary artery atherosclerotic calcifications. 3. Cholelithiasis. 4. Right upper lobe anterior segment pleural scarring Radiation Dose CTDIVOL = (mGy): DLP = 560.44 (mGy-cm)
--- NOTE | 2020-04-08 23:23 | ECG_ITS ---
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 Measurements Intervals [place] Rate: 65 P: -27 UT: 260 QRS: 46 QRSD: 140 T: -29 QT: 450 QTc: 470 Interpretive Statements SINUS RHYTHM WITH FIRST DEGREE AV BLOCK RIGHT BUNDLE BRANCH BLOCK [120+ ms QRS DURATION, UPRIGHT V1, 40+ ms S IN I/aVL/V4/V5/V6] Compared to ECG 02/29/2020 08:24:16 Myocardial infarct finding no longer present Electronically Signed On 04-09-2020 12:12:07 CDT by Patricia Morelos M.D. [id number]
[2020-04-08 23:56] LABS: Troponin 5 2HR 35.95 ng/L (0-10)
[2020-04-08 23:58] LABS: Troponin 5 2HR Delta -0.05 ABS# (0-10)
[2020-04-09] VITALS: BP 135/68; PULSE 68; RESP 18; O2SAT 99
[2020-04-09] MEDS: iodixanol 320 mg/mL 100mL Btl IV (00:05)
[2020-04-09 00:15] VITALS: RESP 18
[2020-04-09] MEDS: morphine 4 mg/mL SDV 1 mL IVP (00:15)
[2020-04-09] MEDS: ondansetron 2 mg/ML SDV 2 mL 4 MG IVP (00:20)
[2020-04-09 01:00] VITALS: BP 118/81; PULSE 65; RESP 18; O2SAT 94
--- NOTE | 2020-04-09 01:11 | PC.NURSE ---
road test -able to walk wnl with walker
[2020-04-09] MEDS: ketorolac 30 mg/mL INJ 15 MG IVP (01:23)
[2020-04-09 01:50] VITALS: BP 114/67; PULSE 65; RESP 18; TEMP 36.8; O2SAT 95
--- NOTE | 2020-04-09 03:23 | ECG_ITS ---
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 Measurements Intervals [place] Rate: 67 P: 25 NE: 252 QRS: 3 QRSD: 148 T: -33 QT: 424 QTc: 448 Interpretive Statements SINUS RHYTHM WITH FIRST DEGREE AV BLOCK RIGHT BUNDLE BRANCH BLOCK ANTERIOR MYOCARDIAL INFARCTION , OF INDETERMINATE AGE MODERATE T-WAVE ABNORMALITY, CONSIDER INFERIOR ISCHEMIA Compared to ECG 02/29/2020 08:24:16 T-wave abnormality now present Possible ischemia now present Myocardial infarct finding still present Electronically Signed On 04-09-2020 12:12:42 CDT by Patricia Morelos M.D. [id number] f
== END 2020-04-09 01:50 | disposition home or self-care (01) ==
PROVIDERS: Emergency Provider Emergency Medicine; PCP Family Medicine
DX: R07.9 Chest pain, unspecified (principal); Z79.01 Long term (current) use of anticoagulants; Z79.02 Long term (current) use of antithrombotics/antiplatelets; Z79.4 Long term (current) use of insulin; I25.10 Atherosclerotic heart disease of native coronary artery without angina pectoris; I11.0 Hypertensive heart disease with heart failure; I50.9 Heart failure, unspecified; E11.9 Type 2 diabetes mellitus without complications; E78.5 Hyperlipidemia, unspecified; Z95.0 Presence of cardiac pacemaker; I48.91 Unspecified atrial fibrillation; Z87.891 Personal history of nicotine dependence
CPT/HCPCS: 12345; 71045; 71275; 80053; 82550; 83880; 84484; 85025; 85378; 85610; 85730; 93005; 96374; 96375; 99282; 99284; J1885; J2270; J2405; J3490; Q9967

== ENCOUNTER 2020-05-25 16:50 | Emergency (ER) | payer MEDICARE, MEDICAID, SELFPAY ==
[2020-05-25 16:50] VITALS: BP 188/88; PULSE 74; RESP 20; TEMP 36.9; O2SAT 100; BMI 36.3
--- NOTE | 2020-05-25 16:52 | XR_ITS ---
WS: [id number] XR chest 1V portable [id number] REASON FOR EXAM: cp FINDINGS: Chest is unchanged compared to 04/08/2020. Battery pack over the left chest with leads to the left subclavian vein to the right atrium and right ventricular apex. The heart is at the upper limits of normal in size. No active pulmonary parenchymal or pleural disease is noted. Moderate changes in the shoulder joints and in the thoracic spine. XR/XR chest 1V portable [id number] IMPRESSION: No acute chest abnormality.
--- NOTE | 2020-05-25 16:52 | ECG_ITS ---
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 Measurements Intervals [place] Rate: 46 P: 39 MO: 299 QRS: 35 QRSD: 132 T: -2 QT: 400 QTc: 352 Interpretive Statements SINUS RHYTHM WITH FIRST DEGREE AV BLOCK RIGHT BUNDLE BRANCH BLOCK [120+ ms QRS DURATION, UPRIGHT V1, 40+ ms S IN I/aVL/V4/V5/V6] WARNING: DATA QUALITY MAY AFFECT INTERPRETATION Compared to ECG 04/08/2020 23:30:07 No significant change Electronically Signed On 05-25-2020 21:20:27 NET UI DEVELOPER by Patricia Morelos M.D. [id number]
--- NOTE | 2020-05-25 16:59 | W.ED.CHESTPA ---
Documented by User: Jannie Null MD 05/25/20 17:55 HPI - Chest Pain General: Chief Complaint: Chest Pain Stated Complaint: CHEST PAIN Time Seen by Provider: 05/25/20 16:52 Source: patient and EMS Mode of arrival: EMS Limitations: no limitations History of Present Illness: HPI narrative: 69-year-old female who presents here with chest pain. She states she has severe sharp pain under her left chest. Patient was brought in by EMS states her pain is 8 out of 10 was not helped by nitro. Patient is crying if you touch her almost anywhere she starts screaming. I did touch her leg along with her chest and she screamed in pain. She is denies any vomiting or shortness of breath. Denies any improving factors. Associated symptoms: Deny abdominal pain, dyspnea, fever(s), nausea or vomiting Review of Systems Const: Denies: fever(s), chills, body aches or change in appetite Eyes: Denies: blurry vision or eye discomfort ENMT: Denies: throat pain or dental pain Card: Reports: chest pain Resp: Denies: dyspnea GI: Denies: abdominal pain, nausea, vomiting or diarrhea : Denies: dysuria Musc: Denies: neck pain or back pain Skin/Breast: Denies: rash Neuro: Denies: headache(s) Psych: Denies: depression Francois/Lymph: Denies: easy bruising All/Imm: Denies: urticaria PFSH ED PFSH: Medical History (Updated 05/25/20 @ 19:43 by Adelita Javed) Anticoagulation adequate with anticoagulant therapy Aortic stenosis Atrial fibrillation by electrocardiogram CAD (coronary artery disease) CHF (congestive heart failure) Dental caries Diabetes DJD (degenerative joint disease) Gastroenteritis GERD (gastroesophageal reflux disease) HTN (hypertension) Hypercholesterolemia Hyperlipidemia Pacemaker Recurrent UTI Long history of recurrent UTIs suspicious for CHRONIC CYSTITIS. ESBL E. coli documented in 2019. Rhabdomyolysis Urinary incontinence Surgical History H/O colonoscopy yrs ago History of cardiac catheterization History of hernia repair History of hip surgery History of hysterectomy History of knee surgery History of sinus surgery History of tonsillectomy History of umbilical hernia repair Status post placement of cardiac pacemaker Family History Father , in his 60's Lung disease Mother , 99 Hypertension Other Diabetes Stroke Denies family history of CAD (coronary artery disease) Clotting disorder Dementia Chronic kidney disease (CKD) Anesthesia complication Bleeding disorder Social History Smoking and tobacco status: never smoked Quit status (tobacco): has quit using tobacco Former quit date comment: Smoking in her 20s Alcohol intake: never Caregiver/support person: Yes (Home health services Friday) Lives independently: Yes Housing: House Marital status: Current occupational status: retired History of recent travel: No Current gender identity: Female Physical Exam Const: COMMON NORMALS: no acute distress, patient oriented x3 and healthy appearing HENMT: COMMON NORMALS: normocephalic and atraumatic HEAD & SCALP: normocephalic and atraumatic Eye: COMMON NORMALS: Equal, round and reactive pupils present and EOMs intact bilaterally PUPIL: Yes Equal, round and reactive pupils present Neck/C-Spine: COMMON NORMALS: full ROM and supple Chest: COMMONS NORMALS: normal inspection of the chest OTHER: Pacemaker scar noted no tenderness or warmth over pacemaker. Patient is extremely tender over left lower chest reproduces her pain. Resp: COMMON NORMALS: normal respiratory effort, No retractions, No use of accessory muscles and clear to auscultation bilaterally AUSCULTATION: clear to auscultation bilaterally Cardio: COMMON NORMALS: regular rate, regular rhythm and No murmurs present (Cardio) RATE: regular rate RHYTHM: regular rhythm GI: COMMON NORMALS: Normal to inspection, nondistended, normoactive bowel sounds present, Soft to palpation, non-tender and no masses PALPATION: Yes Soft to palpation Extremity: COMMON NORMALS: normal to inspection and full ROM Neuro: COMMON NORMALS: patient oriented x3, moves all extremities and no focal motor deficits Psych: COMMON NORMALS: mental status grossly normal, Normal thought process present and cooperative THOUGHT PROCESS: Normal thought process present Skin: COMMON NORMALS: no rashes or lesions noted and no wounds GENERAL SKIN EXAM: no rashes or lesions noted Course Vital Signs: Vital signs: Vital Signs Temperature 98.4 F 05/25/20 16:50 Pulse Rate 72 05/25/20 19:47 Respiratory Rate 15 05/25/20 19:47 Blood Pressure 183/73 05/25/20 19:47 Pulse Oximetry 96 05/25/20 19:47 MDM - Chest Pain MDM Narrative: Medical decision making narrative: Patient presents with chest pain. She is point tender on exam. Pain does seem atypical. Care turned over to Dr. Shelley at this time to follow labs. Lab Data: Labs: Lab Results 05/25/20 05/25/20 05/25/20 Range/Units 17:25 17:25 17:25 WBC 7.3 (4.0-10.0) 10^3/ uL RBC 3.53 L (4.1-5.3) 10^6/u L Hgb 11.0 L (11.5-15.3) g/dL Hct 33.2 L (37.0-47.0) % MCV 94.1 (81-99) fL MCH 31.2 (28.0-34.0) pg MCHC 33.1 (30.0-36.0) g/dL RDW 15.1 (12.1-15.1) % Plt Count 194 (130-400) 10^3/c mm MPV 10.0 (7.4-10.4) fL Neut % (Auto) 67.8 % Lymph % (Auto) 18.4 % Ocean % (Auto) 10.9 % Eos % (Auto) 1.9 % Baso % (Auto) 0.5 % Neut # (Auto) 4.97 (1.8-7.7) 10^3/u L Lymph # (Auto) 1.4 (0.8-4.8) 10^3/u L Ocean # (Auto) 0.8 (0.2-0.9) 10^3/u L Eos # (Auto) 0.1 (0.0-0.8) 10^3/u L Baso # (Auto) 0.0 (0.0-0.1) 10^3/u L Nucleated RBC % (a uto) 0 % Nucleated RBCs # 0.0 /100WBC Sodium 137 (136-145) mmol/L Potassium 4.2 (3.5-5.1) mmol/L Chloride 99 (98-107) mmol/L Carbon Dioxide 28 (22-29) mmol/L Anion Gap 14.2 (5-19) BUN 44 H (8-23) mg/dL Creatinine 1.3 H (0.5-0.9) mg/dL GFR Calculation 40.5 L (90-130) mL/min Glucose 170 H (65-115) mg/dL Calculated Osmolal ity 299 H (285-295) mOsm/k g Calcium 9.2 (8.5-10.5) mg/dL Total Bilirubin 0.6 (0.15-1.2) mg/dL AST 12 (0-32) U/L ALT 11 (0-33) U/L Alkaline Phosphata se 118 H (35-105) IU/L Troponin T Baselin e 33 H (0-10) ng/L Troponin T 120 Min [place] (0-10) ng/L Delta Troponin T (0-10) ABS# Total Protein 7.1 (6.6-8.7) g/dL Albumin 4.1 (3.5-5.2) g/dL Globulin 3.0 (1.3-4.6) g/dL 12 Range/Units 19:00 WBC (4.0-10.0) 10^3/ uL RBC (4.1-5.3) 10^6/u L Hgb (11.5-15.3) g/dL Hct (37.0-47.0) % MCV (81-99) fL MCH (28.0-34.0) pg MCHC (30.0-36.0) g/dL RDW (12.1-15.1) % Plt Count (130-400) 10^3/c mm MPV (7.4-10.4) fL Neut % (Auto) % Lymph % (Auto) % Ocean % (Auto) % Eos % (Auto) % Baso % (Auto) % Neut # (Auto) (1.8-7.7) 10^3/u L Lymph # (Auto) (0.8-4.8) 10^3/u L Ocean # (Auto) (0.2-0.9) 10^3/u L Eos # (Auto) (0.0-0.8) 10^3/u L Baso # (Auto) (0.0-0.1) 10^3/u L Nucleated RBC % (a uto) % Nucleated RBCs # /100WBC Sodium (136-145) mmol/L Potassium (3.5-5.1) mmol/L Chloride (98-107) mmol/L Carbon Dioxide (22-29) mmol/L Anion Gap (5-19) BUN (8-23) mg/dL Creatinine (0.5-0.9) mg/dL GFR Calculation (90-130) mL/min Glucose (65-115) mg/dL Calculated Osmolal ity (285-295) mOsm/k g Calcium (8.5-10.5) mg/dL Total Bilirubin (0.15-1.2) mg/dL AST (0-32) U/L ALT (0-33) U/L Alkaline Phosphata se (35-105) IU/L Troponin T Baselin e (0-10) ng/L Troponin T 120 Min [place] 32.73 H (0-10) ng/L Delta Troponin T -0.27 L (0-10) ABS# Total Protein (6.6-8.7) g/dL Albumin (3.5-5.2) g/dL Globulin (1.3-4.6) g/dL Imaging Data^: CXR: Attestation: I personally reviewed and interpreted this imaging study as follows: Radiologist's impression: [address] [address] XRay Report Signed Patient: Fantasma Montalvo Unit #: [id number] : 1950 Age/Sex: 69 / F ADM Date: 05/25/20 Loc: ER Room/Bed: Attending Dr: Ordering Provider/Ordering MD: Jannie Null MD Date of Service: 05/25/20 Procedure(s): XR chest 1V portable [id number] Accession Number(s): [id number] Report Number: [id number] WS: [id number] XR chest 1V portable [id number] REASON FOR EXAM: cp FINDINGS: Chest is unchanged compared to 04/08/2020. Battery pack over the left chest with leads to the left subclavian vein to the right atrium and right ventricular apex. The heart is at the upper limits of normal in size. No active pulmonary parenchymal or pleural disease is noted. Moderate changes in the shoulder joints and in the thoracic spine. XR/XR chest 1V portable [id number] IMPRESSION: No acute chest abnormality. EKG Data^: EKG 1: Attestation: I personally reviewed and interpreted this EKG as follows: EKG interpretation date: 05/25/20 EKG interpretation time: 16:56 Interpretation: sinus cate with no st or t wave abnormalities qrs 132 qtc 360 Discharge Plan Discharge Patient Disposition: Home Clinical Impression: Pain in pacemaker pocket Chest pain Qualifiers: Chest pain type: unspecified Qualified Code(s): R07.9 - Chest pain, unspecified Condition: Stable Prescriptions: No Action glipizide 5 mg tablet 5 mg PO DAILY@08 RF: 0 insulin glargine 100 unit/mL (3 mL) insulin pen 12 unit SUBCUT BEDTIME@20 RF: 0 sennosides-docusate sodium 8.6-50 mg tablet 1 tab PO DAILY PRN (Reason: Constipation) RF: 0 Novolog Flexpen U-100 Insulin 100 unit/mL (3 mL) Insulin Pen See Rx Instructions .ROUTE .COMPLEX RF: 0 cefuroxime axetil 250 mg tablet 250 mg PO BID@08,20 RF: 0 isosorbide mononitrate 30 mg tablet extended release 24 hr 30 mg PO BID@08,20 RF: 0 nifedipine 30 mg tablet extended release 30 mg PO DAILY@08 RF: 0 clopidogrel 75 mg tablet 75 mg PO DAILY@08 RF: 0 levothyroxine 50 mcg tablet 50 mcg PO DAILY@08 RF: 0 sertraline 25 mg tablet 25 mg PO DAILY@08 RF: 0 bumetanide 1 mg tablet 1 mg PO DAILY@08 RF: 0 gabapentin 100 mg capsule 100 mg PO BEDTIME@20 RF: 0 rosuvastatin 20 mg tablet 20 mg PO BEDTIME@20 RF: 0 Dexilant 60 mg capsule,biphase delayed releas 60 mg PO DAILY@08 RF: 0 Eliquis 5 mg tablet 2.5 mg PO BID@08,20 RF: 0 Nitrostat 0.4 mg Tablet, Sublingual 0.4 mg SUBLINGUAL Q5M PRN (Reason: Chest Pain) RF: 0 fentanyl 50 mcg/hr patch 72 hour 50 mcg topical Q72H Qty: 10 RF: 0 ondansetron HCl [Zofran] 4 mg Tablet 4 mg PO BID PRN (Reason: Nausea) Qty: 30 RF: 0 acetaminophen 325 mg capsule 325 mg PO QID PRN (Reason: fever or mild pain) Qty: 30 RF: 0 potassium chloride 10 mEq tablet extended release 10 meq PO DAILY@08 RF: 0 Discharge Orders: Discharge ED (Routine); Ordered 05/25/20 Ordered By: Adelita Javed Referrals: Betsy Nuno DO [Primary Care Provider] - Patricia Morelos MD [Physician] - 1-3 days Discharge Diet: Usual diet Discharge Activity: Limit activity as instructed Patient Instructions: Chest Pain (ED), Pacemaker (GEN) Activity Restrictions/Additional Instructions: Please return to the ER immediately for any of the signs or symptoms listed on your discharge instruction sheets, worsening/changing of your symptoms, you are not getting better as quickly as expected, or for ANY other cause or concerns. Be certain to call Dr. Greer's office for an appointment to be seen as soon as possible for further evaluation of your pacemaker. Sign Out Sign Out Data: Patient Sign Out occurred on 05/25/20 at 18:32. Patient's care was discussed, and care was transferred from to Adelita Javed. Coding Level of Care Code ED Telephone Solicitor Supervisor for Chg Fwd Exam Comprehensive Documented by User: Adelita Javed 05/25/20 20:13 HPI - Chest Pain General: Chief Complaint: Chest Pain Stated Complaint: CHEST PAIN Time Seen by Provider: 05/25/20 16:52 [facility] ED PFSH: Medical History (Updated 05/25/20 @ 19:43 by Adelita Javed) Anticoagulation adequate with anticoagulant therapy Aortic stenosis Atrial fibrillation by electrocardiogram CAD (coronary artery disease) CHF (congestive heart failure) Dental caries Diabetes DJD (degenerative joint disease) Gastroenteritis GERD (gastroesophageal reflux disease) HTN (hypertension) Hypercholesterolemia Hyperlipidemia Pacemaker Recurrent UTI Long history of recurrent UTIs suspicious for CHRONIC CYSTITIS. ESBL E. coli documented in 2019. Rhabdomyolysis Urinary incontinence Surgical History H/O colonoscopy yrs ago History of cardiac catheterization History of hernia repair History of hip surgery History of hysterectomy History of knee surgery History of sinus surgery History of tonsillectomy History of umbilical hernia repair Status post placement of cardiac pacemaker Family History Father , in his 60's Lung disease Mother , 99 Hypertension Other Diabetes Stroke Denies family history of CAD (coronary artery disease) Clotting disorder Dementia Chronic kidney disease (CKD) Anesthesia complication Bleeding disorder Social History Smoking and tobacco status: never smoked Quit status (tobacco): has quit using tobacco Former quit date comment: Smoking in her 20s Alcohol intake: never Caregiver/support person: Yes (Home health services Friday) Lives independently: Yes Housing: House Marital status: Current occupational status: retired History of recent travel: No Current gender identity: Female Course Vital Signs: Vital signs: Vital Signs Temperature 98.4 F 05/25/20 16:50 Pulse Rate 72 05/25/20 19:47 Respiratory Rate 15 05/25/20 19:47 Blood Pressure 183/73 05/25/20 19:47 Pulse Oximetry 96 05/25/20 19:47 MDM - Chest Pain MDM Narrative: Medical decision making narrative: 184 -Case assumed by me at change of shift from Dr. Null. Please see his note for his history, physical exam and medical decision-making notes. Upon my history the patient states that she has had a constant ache right around her pacemaker for the past 2 days. She states the pain is mild and waxes and wanes in intensity but has been constant. She said it is made worse when she pushes on the affected area and it is made worse when she moves her right arm and shoulder. At times she will get an occasional sharp pain that radiates to her left axilla but this lasts just a few brief seconds. She has no other associated symptoms such as diaphoresis, nausea or vomiting, worsening with exertion and the patient has had no improvement with nitroglycerin. Her initial EKG is at his baseline, her chest x-ray is normal and her first troponin is within her normal range. When asked the patient states this is a pacemaker related problem which was placed approximately 3 months ago according to her and not a heart issue. I tend to agree with her based upon the history, exam and description of her pain. This time though she does agree to stay for a second EKG and troponin and if normal she is happy to go back to the snf and follow-up with a design technology teacher for her symptoms. 2009 -the case was reviewed with Dr. Rome. He agrees if the patient has no fever or sign of outlying infection the patient can follow-up as an outpatient. Patient is feeling better at this time. Her second troponin and EKG are unremarkable. Second EKG reveals that her pacemaker is functioning adequately. I will go and discharge her home and have her follow-up with her doctor. She agrees to go forward with this plan. She and her were instructed return here for symptoms worsen, she was a fever or has any other concerns. They verbalized her understanding. Lab Data: Labs: Lab Results 05/25/20 05/25/20 05/25/20 Range/Units 17:25 17:25 17:25 WBC 7.3 (4.0-10.0) 10^3/ uL RBC 3.53 L (4.1-5.3) 10^6/u L Hgb 11.0 L (11.5-15.3) g/dL Hct 33.2 L (37.0-47.0) % MCV 94.1 (81-99) fL MCH 31.2 (28.0-34.0) pg MCHC 33.1 (30.0-36.0) g/dL RDW 15.1 (12.1-15.1) % Plt Count 194 (130-400) 10^3/c mm MPV 10.0 (7.4-10.4) fL Neut % (Auto) 67.8 % Lymph % (Auto) 18.4 % Ocean % (Auto) 10.9 % Eos % (Auto) 1.9 % Baso % (Auto) 0.5 % Neut # (Auto) 4.97 (1.8-7.7) 10^3/u L Lymph # (Auto) 1.4 (0.8-4.8) 10^3/u L Ocean # (Auto) 0.8 (0.2-0.9) 10^3/u L Eos # (Auto) 0.1 (0.0-0.8) 10^3/u L Baso # (Auto) 0.0 (0.0-0.1) 10^3/u L Nucleated RBC % (a uto) 0 % Nucleated RBCs # 0.0 /100WBC Sodium 137 (136-145) mmol/L Potassium 4.2 (3.5-5.1) mmol/L Chloride 99 (98-107) mmol/L Carbon Dioxide 28 (22-29) mmol/L Anion Gap 14.2 (5-19) BUN 44 H (8-23) mg/dL Creatinine 1.3 H (0.5-0.9) mg/dL GFR Calculation 40.5 L (90-130) mL/min Glucose 170 H (65-115) mg/dL Calculated Osmolal ity 299 H (285-295) mOsm/k g Calcium 9.2 (8.5-10.5) mg/dL Total Bilirubin 0.6 (0.15-1.2) mg/dL AST 12 (0-32) U/L ALT 11 (0-33) U/L Alkaline Phosphata se 118 H (35-105) IU/L Troponin T Baselin e 33 H (0-10) ng/L Troponin T 120 Min [place] (0-10) ng/L Delta Troponin T (0-10) ABS# Total Protein 7.1 (6.6-8.7) g/dL Albumin 4.1 (3.5-5.2) g/dL Globulin 3.0 (1.3-4.6) g/dL 1220 Range/Units 19:00 WBC (4.0-10.0) 10^3/ uL RBC (4.1-5.3) 10^6/u L Hgb (11.5-15.3) g/dL Hct (37.0-47.0) % MCV (81-99) fL MCH (28.0-34.0) pg MCHC (30.0-36.0) g/dL RDW (12.1-15.1) % Plt Count (130-400) 10^3/c mm MPV (7.4-10.4) fL Neut % (Auto) % Lymph % (Auto) % Ocean % (Auto) % Eos % (Auto) % Baso % (Auto) % Neut # (Auto) (1.8-7.7) 10^3/u L Lymph # (Auto) (0.8-4.8) 10^3/u L Ocean # (Auto) (0.2-0.9) 10^3/u L Eos # (Auto) (0.0-0.8) 10^3/u L Baso # (Auto) (0.0-0.1) 10^3/u L Nucleated RBC % (a uto) % Nucleated RBCs # /100WBC Sodium (136-145) mmol/L Potassium (3.5-5.1) mmol/L Chloride (98-107) mmol/L Carbon Dioxide (22-29) mmol/L Anion Gap (5-19) BUN (8-23) mg/dL Creatinine (0.5-0.9) mg/dL GFR Calculation (90-130) mL/min Glucose (65-115) mg/dL Calculated Osmolal ity (285-295) mOsm/k g Calcium (8.5-10.5) mg/dL Total Bilirubin (0.15-1.2) mg/dL AST (0-32) U/L ALT (0-33) U/L Alkaline Phosphata se (35-105) IU/L Troponin T Baselin e (0-10) ng/L Troponin T 120 Min [place] 32.73 H (0-10) ng/L Delta Troponin T -0.27 L (0-10) ABS# Total Protein (6.6-8.7) g/dL Albumin (3.5-5.2) g/dL Globulin (1.3-4.6) g/dL EKG Data^: EKG 2: Attestation: I personally reviewed and interpreted this EKG as follows: EKG interpretation date: 05/25/20 EKG interpretation time: 19:05 Interpretation: Ventricular paced rhythm at 72 beats a minute, normal proceeding P waves with first-degree AV block, interventricular conduction delay appropriate for paced rhythm noted. Discharge Plan Discharge Patient Disposition: Home Clinical Impression: Pain in pacemaker pocket Chest pain Qualifiers: Chest pain type: unspecified Qualified Code(s): R07.9 - Chest pain, unspecified Condition: Stable Prescriptions: No Action glipizide 5 mg tablet 5 mg PO DAILY@08 RF: 0 insulin glargine 100 unit/mL (3 mL) insulin pen 12 unit SUBCUT BEDTIME@20 RF: 0 sennosides-docusate sodium 8.6-50 mg tablet 1 tab PO DAILY PRN (Reason: Constipation) RF: 0 Novolog Flexpen U-100 Insulin 100 unit/mL (3 mL) Insulin Pen See Rx Instructions .ROUTE .COMPLEX RF: 0 cefuroxime axetil 250 mg tablet 250 mg PO BID@08,20 RF: 0 isosorbide mononitrate 30 mg tablet extended release 24 hr 30 mg PO BID@08,20 RF: 0 nifedipine 30 mg tablet extended release 30 mg PO DAILY@08 RF: 0 clopidogrel 75 mg tablet 75 mg PO DAILY@08 RF: 0 levothyroxine 50 mcg tablet 50 mcg PO DAILY@08 RF: 0 sertraline 25 mg tablet 25 mg PO DAILY@08 RF: 0 bumetanide 1 mg tablet 1 mg PO DAILY@08 RF: 0 gabapentin 100 mg capsule 100 mg PO BEDTIME@20 RF: 0 rosuvastatin 20 mg tablet 20 mg PO BEDTIME@20 RF: 0 Dexilant 60 mg capsule,biphase delayed releas 60 mg PO DAILY@08 RF: 0 Eliquis 5 mg tablet 2.5 mg PO BID@08,20 RF: 0 Nitrostat 0.4 mg Tablet, Sublingual 0.4 mg SUBLINGUAL Q5M PRN (Reason: Chest Pain) RF: 0 fentanyl 50 mcg/hr patch 72 hour 50 mcg topical Q72H Qty: 10 RF: 0 ondansetron HCl [Zofran] 4 mg Tablet 4 mg PO BID PRN (Reason: Nausea) Qty: 30 RF: 0 acetaminophen 325 mg capsule 325 mg PO QID PRN (Reason: fever or mild pain) Qty: 30 RF: 0 potassium chloride 10 mEq tablet extended release 10 meq PO DAILY@08 RF: 0 Discharge Orders: Discharge ED (Routine); Ordered 05/25/20 Ordered By: Adelita Javed Referrals: Betsy Nuno DO [Primary Care Provider] - Patricia Morelos MD [Physician] - 1-3 days Discharge Diet: Usual diet Discharge Activity: Limit activity as instructed Patient Instructions: Chest Pain (ED), Pacemaker (GEN) Activity Restrictions/Additional Instructions: Please return to the ER immediately for any of the signs or symptoms listed on your discharge instruction sheets, worsening/changing of your symptoms, you are not getting better as quickly as expected, or for ANY other cause or concerns. Be certain to call Dr. Greer's office for an appointment to be seen as soon as possible for further evaluation of your pacemaker. Sign Out Sign Out Data: Patient Sign Out occurred on 05/25/20 at 18:32. Patient's care was discussed, and care was transferred from to Adelita Javed. Coding Level of Care Code ED Telephone Solicitor Supervisor for Chg Fwd Exam Comprehensive
[2020-05-25 17:02] VITALS: RESP 18; O2SAT 94
[2020-05-25] MEDS: ondansetron 2 mg/ML SDV 2 mL 4 MG IVP (17:02)
[2020-05-25] MEDS: HYDROmorphone 1 mg/mL INJ 1 mL IVP (17:02)
[2020-05-25 17:34] VITALS: BP 171/96; PULSE 71; RESP 24; O2SAT 94
[2020-05-25 17:36] LABS: Basophils % 0.5 %; Eosinophils # 0.1 10^3/uL (0.0-0.8); Eosinophils % 1.9 %; Hematocrit 33.2 % (37.0-47.0); Lymphocytes # 1.4 10^3/uL (0.8-4.8); Lymphocytes % 18.4 %; Mean Corpuscular HGB Conc 33.1 g/dL (30.0-36.0); Mean Corpuscular Hemoglobin 31.2 pg (28.0-34.0); Mean Corpuscular Volume 94.1 fL (81-99); Monocytes # 0.8 10^3/uL (0.2-0.9); Monocytes % 10.9 %; Neutrophils # 4.97 10^3/uL (1.8-7.7); Neutrophils % 67.8 %; Nucleated Red Blood Cells % 0 %; Platelet Count 194 10^3/cmm (130-400); Red Blood Count 3.53 10^6/uL (4.1-5.3); Red Cell Distribution Width 15.1 % (12.1-15.1); White Blood Count 7.3 10^3/uL (4.0-10.0)
[2020-05-25 17:54] LABS: Alanine Aminotransferase 11 U/L (0-33); Albumin Level 4.1 g/dL (3.5-5.2); Alkaline Phosphatase 118 IU/L (35-105); Anion Gap 14.2 (5-19); Aspartate Amino Transferase 12 U/L (0-32); Blood Urea Nitrogen 44 mg/dL (8-23); Calcium 9.2 mg/dL (8.5-10.5); Carbon Dioxide 28 mmol/L (22-29); Chloride 99 mmol/L (98-107); Glomerular Filtration Rate 40.5 mL/min (90-130); Glucose 170 mg/dL (65-115); Osmolality Calculated 299 mOsm/kg (285-295); Potassium 4.2 mmol/L (3.5-5.1); Sodium 137 mmol/L (136-145); Total Bilirubin 0.6 mg/dL (0.15-1.2); Total Protein 7.1 g/dL (6.6-8.7)
[2020-05-25 17:56] LABS: Troponin(5th) Baseline 33 ng/L (0-10)
[2020-05-25 18:52] VITALS: BP 164/66; PULSE 63; RESP 18; O2SAT 97
[2020-05-25 19:22] LABS: Troponin 5 2HR 32.73 ng/L (0-10)
[2020-05-25 19:47] VITALS: BP 183/73; PULSE 72; RESP 15; O2SAT 96
[2020-05-25 19:58] LABS: Troponin 5 2HR Delta -0.27 ABS# (0-10)
[2020-05-25 20:19] VITALS: BP 175/72; PULSE 70; RESP 15; O2SAT 100
== END 2020-05-25 20:20 | disposition home or self-care (01) ==
PROVIDERS: Emergency Medicine; Emergency Provider Emergency Medicine; PCP Family Medicine
DX: R07.9 Chest pain, unspecified (principal); Z95.0 Presence of cardiac pacemaker; T82.847A Pain due to cardiac prosthetic devices, implants and grafts, initial encounter; Z79.01 Long term (current) use of anticoagulants; Z79.02 Long term (current) use of antithrombotics/antiplatelets; Z79.4 Long term (current) use of insulin; I48.91 Unspecified atrial fibrillation; I25.10 Atherosclerotic heart disease of native coronary artery without angina pectoris; I11.0 Hypertensive heart disease with heart failure; I50.9 Heart failure, unspecified; E11.9 Type 2 diabetes mellitus without complications; E78.5 Hyperlipidemia, unspecified; Z87.891 Personal history of nicotine dependence
CPT/HCPCS: 12345; 36415; 71045; 80053; 84484; 85025; 93005; 96374; 96375; 99283; 99284; J1170; J2405

== ENCOUNTER 2020-06-18 06:56 | Emergency (ER) | payer MEDICARE, MEDICAID, SELFPAY ==
[2020-06-18 06:57] VITALS: BP 149/62; PULSE 70; RESP 18; TEMP 36.8; O2SAT 99; BMI 40.4
--- NOTE | 2020-06-18 07:06 | XRR_ITS ---
PROCEDURE INFORMATION: Exam: XR Chest, 1 View Exam date and time: 06/18/2020 7:07 AM Age: 69 years old Clinical indication: Chest pain; Prior surgery; Surgery type: Pacemaker TECHNIQUE: Imaging protocol: XR of the chest Views: 1 view. COMPARISON: CR XR chest 1V portable [id number] 05/25/2020 5:02 PM FINDINGS: Tubes, catheters and devices: A permanent sequential pacemaker appears intact. Lungs: There is mild fibrosis in the left costophrenic angle. Otherwise lungs are clear. . Pleural space: There is no pleural effusion or pneumothorax. Heart/Mediastinum: Unremarkable. No cardiomegaly. Bones/joints: Unremarkable. XR/XR chest 1V portable [id number] IMPRESSION: No significant cardiopulmonary abnormality.
--- NOTE | 2020-06-18 07:06 | ECG_ITS ---
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 Measurements Intervals [place] Rate: 66 P: 227 ME: 282 QRS: 37 QRSD: 134 T: -19 QT: 443 QTc: 467 Interpretive Statements ELECTRONIC ATRIAL PACEMAKER RIGHT BUNDLE BRANCH BLOCK [120+ ms QRS DURATION, UPRIGHT V1, 40+ ms S IN I/aVL/V4/V5/V6] ANTERIOR MYOCARDIAL INFARCTION , PROBABLY OLD [40+ ms Q WAVE AND/OR ST/T ABNORMALITY IN V3/V4] Compared to ECG 05/25/2020 16:56:20 Myocardial infarct finding now present Sinus rhythm no longer present First degree AV block no longer present Electronically Signed On 06-18-2020 17:50:09 COMPUTER APPLICATION DEVELOPER by Cuco Pederson M.D. [email or web address]
--- NOTE | 2020-06-18 07:10 | W.ED.CHESTPA ---
HPI - Chest Pain General: Chief Complaint: Chest Pain Stated Complaint: CHEST PAIN Time Seen by Provider: 06/18/20 07:00 Source: patient and EMS Mode of arrival: EMS Limitations: no limitations History of Present Illness: HPI narrative: Patient with chest pain x3 hours. History of previous AL. Aspirin and nitro given by EMS. MD complaint: chest pain Pertinent past history: coronary artery disease Onset (ago): hour(s) (3) Onset: during rest Pain location: substernal Pain radiation: left arm Quality: tightness Associated symptoms: Deny abdominal pain, dyspnea, fever(s), nausea or vomiting Risk Factors: Coronary artery disease risk factors: diabetes and hypertension Review of Systems Const: Denies: fever(s) Eyes: Denies: change in vision ENMT: Denies: throat pain Card: Reports: chest pain Resp: Denies: dyspnea GI: Denies: abdominal pain, nausea or vomiting : Denies: flank pain Musc: Denies: neck pain or back pain Skin/Breast: Denies: rash Neuro: Denies: headache(s) or numbness in extremities [facility] ED PFSH: Medical History (Updated 06/18/20 @ 10:52 by Nicola Smith MD) Anticoagulation adequate with anticoagulant therapy Aortic stenosis Atrial fibrillation by electrocardiogram CAD (coronary artery disease) CHF (congestive heart failure) Dental caries Diabetes DJD (degenerative joint disease) Gastroenteritis GERD (gastroesophageal reflux disease) HTN (hypertension) Hypercholesterolemia Hyperlipidemia Pacemaker Recurrent UTI Long history of recurrent UTIs suspicious for CHRONIC CYSTITIS. ESBL E. coli documented in 2019. Rhabdomyolysis Urinary incontinence Surgical History H/O colonoscopy yrs ago History of cardiac catheterization History of hernia repair History of hip surgery History of hysterectomy History of knee surgery History of sinus surgery History of tonsillectomy History of umbilical hernia repair Status post placement of cardiac pacemaker Family History Father , in his 60's Lung disease Mother , 99 Hypertension Other Diabetes Stroke Denies family history of CAD (coronary artery disease) Clotting disorder Dementia Chronic kidney disease (CKD) Anesthesia complication Bleeding disorder Social History Smoking and tobacco status: never smoked Quit status (tobacco): has quit using tobacco Former quit date comment: Smoking in her 20s Alcohol intake: never Caregiver/support person: Yes (Home health services Friday) Lives independently: Yes Housing: House Marital status: Current occupational status: retired History of recent travel: No Current gender identity: Female Physical Exam Const: COMMON NORMALS: no acute distress and patient oriented x3 HENMT: COMMON NORMALS: normocephalic HEAD & SCALP: normocephalic Eye: COMMON NORMALS: Equal, round and reactive pupils present and EOMs intact bilaterally PUPIL: Yes Equal, round and reactive pupils present Neck/C-Spine: COMMON NORMALS: full ROM, no lymphadenopathy and supple Resp: COMMON NORMALS: normal respiratory effort and No retractions Cardio: COMMON NORMALS: regular rate and regular rhythm RATE: regular rate RHYTHM: regular rhythm GI: COMMON NORMALS: Normal to inspection, nondistended, normoactive bowel sounds present, Soft to palpation and non-tender PALPATION: Yes Soft to palpation Neuro: COMMON NORMALS: patient oriented x3, CN's II-XII intact bilaterally, moves all extremities, no focal motor deficits and no sensory deficits noted Course Vital Signs: Vital signs: Vital Signs Temperature 98.3 F 06/18/20 06:57 Pulse Rate 64 06/18/20 09:53 Respiratory Rate 18 06/18/20 09:53 Blood Pressure 156/69 06/18/20 09:53 Pulse Oximetry 97 06/18/20 09:53 MDM - Chest Pain MDM Narrative: Medical decision making narrative: Patient is chest pain-free. Her initial troponin was mildly elevated however her delta troponin was slightly lower than initial. Do not see any indication of ACS at this time. No evidence of PE or dissection or infection or pneumothorax or other life-threatening illness. Chest x-ray showed no acute disease. EKG showed nonspecific ST and T wave changes Discussed with family as well as with patient. She has a follow-up with cardiology next week. They are comfortable going home. Lab Data: Labs: Lab Results 06/18/20 06/18/20 06/18/20 Range/Units 07:34 07:34 07:34 WBC 9.0 (4.0-10.0) 10^3/ uL RBC 3.59 L (4.1-5.3) 10^6/u L Hgb 11.2 L (11.5-15.3) g/dL Hct 34.2 L (37.0-47.0) % MCV 95.3 (81-99) fL MCH 31.2 (28.0-34.0) pg MCHC 32.7 (30.0-36.0) g/dL RDW 15.1 (12.1-15.1) % Plt Count 213 (130-400) 10^3/c mm MPV 10.0 (7.4-10.4) fL Neut % (Auto) 74.7 % Lymph % (Auto) 12.6 % [place] % (Auto) 9.7 % Eos % (Auto) 1.8 % Baso % (Auto) 0.6 % Neut # (Auto) 6.73 (1.8-7.7) 10^3/u L Lymph # (Auto) 1.1 (0.8-4.8) 10^3/u L [place] # (Auto) 0.9 (0.2-0.9) 10^3/u L Eos # (Auto) 0.2 (0.0-0.8) 10^3/u L Baso # (Auto) 0.1 (0.0-0.1) 10^3/u L Nucleated RBC % (a uto) 0 % Nucleated RBCs # 0.0 /100WBC Sodium 138 (136-145) mmol/L Potassium 3.4 L (3.5-5.1) mmol/L Chloride 100 (98-107) mmol/L Carbon Dioxide 27 (22-29) mmol/L Anion Gap 14.4 (5-19) BUN 35 H (8-23) mg/dL Creatinine 1.2 H (0.5-0.9) mg/dL GFR Calculation 44.4 L (90-130) mL/min Glucose 87 (65-115) mg/dL Calculated Osmolal ity 293 (285-295) mOsm/k g Calcium 9.5 (8.5-10.5) mg/dL Total Bilirubin 0.7 (0.15-1.2) mg/dL AST 13 (0-32) U/L ALT 10 (0-33) U/L Alkaline Phosphata se 118 H (35-105) IU/L Troponin T Baselin e 37 H (0-10) ng/L Troponin T 120 Min osage (0-10) ng/L Delta Troponin T (0-10) ABS# NT-Pro-B Natriuret Pep 1319 H (0-125) pg/mL Total Protein 7.6 (6.6-8.7) g/dL Albumin 3.9 (3.5-5.2) g/dL Globulin 3.7 (1.3-4.6) g/dL 06/18/20 Range/Units 09:30 WBC (4.0-10.0) 10^3/ uL RBC (4.1-5.3) 10^6/u L Hgb (11.5-15.3) g/dL Hct (37.0-47.0) % MCV (81-99) fL MCH (28.0-34.0) pg MCHC (30.0-36.0) g/dL RDW (12.1-15.1) % Plt Count (130-400) 10^3/c mm MPV (7.4-10.4) fL Neut % (Auto) % Lymph % (Auto) % [place] % (Auto) % Eos % (Auto) % Baso % (Auto) % Neut # (Auto) (1.8-7.7) 10^3/u L Lymph # (Auto) (0.8-4.8) 10^3/u L [place] # (Auto) (0.2-0.9) 10^3/u L Eos # (Auto) (0.0-0.8) 10^3/u L Baso # (Auto) (0.0-0.1) 10^3/u L Nucleated RBC % (a uto) % Nucleated RBCs # /100WBC Sodium (136-145) mmol/L Potassium (3.5-5.1) mmol/L Chloride (98-107) mmol/L Carbon Dioxide (22-29) mmol/L Anion Gap (5-19) BUN (8-23) mg/dL Creatinine (0.5-0.9) mg/dL GFR Calculation (90-130) mL/min Glucose (65-115) mg/dL Calculated Osmolal ity (285-295) mOsm/k g Calcium (8.5-10.5) mg/dL Total Bilirubin (0.15-1.2) mg/dL AST (0-32) U/L ALT (0-33) U/L Alkaline Phosphata se (35-105) IU/L Troponin T Baselin e (0-10) ng/L Troponin T 120 Min os[place] 36.29 H (0-10) ng/L Delta Troponin T -0.71 L (0-10) ABS# NT-Pro-B Natriuret Pep (0-125) pg/mL Total Protein (6.6-8.7) g/dL Albumin (3.5-5.2) g/dL Globulin (1.3-4.6) g/dL Discharge Plan Discharge Patient Disposition: Home Clinical Impression: Chest pain Condition: Stable Prescriptions: No Action glipizide 5 mg tablet 5 mg PO DAILY@08 RF: 0 insulin glargine 100 unit/mL (3 mL) insulin pen 12 unit SUBCUT BEDTIME@20 RF: 0 sennosides-docusate sodium 8.6-50 mg tablet 1 tab PO DAILY PRN (Reason: Constipation) RF: 0 Novolog Flexpen U-100 Insulin 100 unit/mL (3 mL) Insulin Pen See Rx Instructions .ROUTE .COMPLEX RF: 0 cefuroxime axetil 250 mg tablet 250 mg PO BID@08,20 RF: 0 isosorbide mononitrate 30 mg tablet extended release 24 hr 30 mg PO BID@08,20 RF: 0 nifedipine 30 mg tablet extended release 30 mg PO DAILY@08 RF: 0 clopidogrel 75 mg tablet 75 mg PO DAILY@08 RF: 0 levothyroxine 50 mcg tablet 50 mcg PO DAILY@08 RF: 0 sertraline 25 mg tablet 25 mg PO DAILY@08 RF: 0 bumetanide 1 mg tablet 1 mg PO DAILY@08 RF: 0 gabapentin 100 mg capsule 100 mg PO BEDTIME@20 RF: 0 rosuvastatin 20 mg tablet 20 mg PO BEDTIME@20 RF: 0 Dexilant 60 mg capsule,biphase delayed releas 60 mg PO DAILY@08 RF: 0 Eliquis 5 mg tablet 2.5 mg PO BID@08,20 RF: 0 Nitrostat 0.4 mg Tablet, Sublingual 0.4 mg SUBLINGUAL Q5M PRN (Reason: Chest Pain) RF: 0 fentanyl 50 mcg/hr patch 72 hour 50 mcg topical Q72H Qty: 10 RF: 0 ondansetron HCl [Zofran] 4 mg Tablet 4 mg PO BID PRN (Reason: Nausea) Qty: 30 RF: 0 acetaminophen 325 mg capsule 325 mg PO QID PRN (Reason: fever or mild pain) Qty: 30 RF: 0 potassium chloride 10 mEq tablet extended release 10 meq PO DAILY@08 RF: 0 Discharge Orders: Discharge ED (Routine); Ordered 06/18/20 Ordered By: Nicola Smith Referrals: Betsy Nuno DO [Primary Care Provider] - Coding Level of Care Code ED Development System Efficiency Manager for Chg Fwd Exam Comprehensive
[2020-06-18 07:59] LABS: Basophils # 0.1 10^3/uL (0.0-0.1); Basophils % 0.6 %; Eosinophils # 0.2 10^3/uL (0.0-0.8); Eosinophils % 1.8 %; Hematocrit 34.2 % (37.0-47.0); Hemoglobin 11.2 g/dL (11.5-15.3); Lymphocytes # 1.1 10^3/uL (0.8-4.8); Lymphocytes % 12.6 %; Mean Corpuscular HGB Conc 32.7 g/dL (30.0-36.0); Mean Corpuscular Hemoglobin 31.2 pg (28.0-34.0); Mean Corpuscular Volume 95.3 fL (81-99); Monocytes # 0.9 10^3/uL (0.2-0.9); Monocytes % 9.7 %; Neutrophils # 6.73 10^3/uL (1.8-7.7); Neutrophils % 74.7 %; Nucleated Red Blood Cells % 0 %; Platelet Count 213 10^3/cmm (130-400); Red Blood Count 3.59 10^6/uL (4.1-5.3); Red Cell Distribution Width 15.1 % (12.1-15.1)
[2020-06-18 08:06] VITALS: BP 177/74; PULSE 65; RESP 16; O2SAT 95
[2020-06-18 08:29] LABS: Troponin(5th) Baseline 37 ng/L (0-10)
[2020-06-18 08:36] VITALS: BP 166/71; PULSE 64; RESP 16; O2SAT 96
--- NOTE | 2020-06-18 09:06 | ECG_ITS ---
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 Measurements Intervals [place] Rate: 64 P: NV: QRS: 31 QRSD: 133 T: -16 QT: 434 QTc: 449 Interpretive Statements Sinus rhythm with first degree block Right bundle branch block ANTEROLATERAL MYOCARDIAL INFARCTION , OF INDETERMINATE AGE [40+ ms Q WAVE IN I/aVL/V3-V6] Compared to ECG 06/18/2020 07:06:50 Intraventricular conduction delay now present Atrial-paced complex(es) or rhythm no longer present Myocardial infarct finding still present Electronically Signed On 06-18-2020 17:58:35 MICA PARTS SPRAYER by Cuco Pederson M.D. [email or web address] hospitalAcer[email or web address].[id number]
[2020-06-18 09:10] LABS: Alanine Aminotransferase 10 U/L (0-33); Albumin Level 3.9 g/dL (3.5-5.2); Alkaline Phosphatase 118 IU/L (35-105); Anion Gap 14.4 (5-19); Aspartate Amino Transferase 13 U/L (0-32); Blood Urea Nitrogen 35 mg/dL (8-23); Calcium 9.5 mg/dL (8.5-10.5); Carbon Dioxide 27 mmol/L (22-29); Chloride 100 mmol/L (98-107); Globulin 3.7 g/dL (1.3-4.6); Glomerular Filtration Rate 44.4 mL/min (90-130); Glucose 87 mg/dL (65-115); NT Pro B Type Natriuretic Pept 1319 pg/mL (0-125); Osmolality Calculated 293 mOsm/kg (285-295); Potassium 3.4 mmol/L (3.5-5.1); Sodium 138 mmol/L (136-145); Total Bilirubin 0.7 mg/dL (0.15-1.2); Total Protein 7.6 g/dL (6.6-8.7)
[2020-06-18 09:53] VITALS: BP 156/69; PULSE 64; RESP 18; O2SAT 97
[2020-06-18 10:38] LABS: Troponin 5 2HR 36.29 ng/L (0-10)
[2020-06-18 10:45] LABS: Troponin 5 2HR Delta -0.71 ABS# (0-10)
[2020-06-18 10:57] VITALS: BP 140/85; PULSE 75; RESP 16; O2SAT 97
== END 2020-06-18 11:01 | disposition home or self-care (01) ==
PROVIDERS: Emergency Provider Emergency Medicine; PCP Family Medicine
DX: R07.9 Chest pain, unspecified (principal); Z79.01 Long term (current) use of anticoagulants; Z79.02 Long term (current) use of antithrombotics/antiplatelets; Z79.4 Long term (current) use of insulin; I48.91 Unspecified atrial fibrillation; I25.10 Atherosclerotic heart disease of native coronary artery without angina pectoris; I11.0 Hypertensive heart disease with heart failure; I50.9 Heart failure, unspecified; E11.9 Type 2 diabetes mellitus without complications; E78.5 Hyperlipidemia, unspecified; Z95.0 Presence of cardiac pacemaker; Z87.891 Personal history of nicotine dependence
CPT/HCPCS: 12345; 36415; 71045; 80053; 83880; 84484; 85025; 93005; 96365; 96375; 99283; 99284

== ENCOUNTER 2020-09-14 09:34 | Emergency (ER) | payer MEDICARE, MEDICAID, SELFPAY ==
[2020-09-14 09:42] VITALS: BP 185/74; PULSE 70; RESP 16; TEMP 36.7; O2SAT 97; BMI 37.3
[2020-09-14 09:51] VITALS: BP 197/86; PULSE 76; RESP 20; O2SAT 99
--- NOTE | 2020-09-14 09:58 | W.ED.NAVMDI ---
HPI - Nausea/Vomiting/Diarrhea General: Chief complaint: Nausea/Vomiting/Diarrhea Stated complaint: ABDOMINAL PAIN Time Seen by Provider: 09/14/20 09:36 History of Present Illness: HPI Narrative: 69-year-old female presents emergency room with complaint of single episode of vomiting this morning she denies any hematemesis or coffee-ground emesis. She got nauseous and had some loose stools. She had 2 episodes of diarrhea with it as well also noticed abdominal swelling and distention. No fever sweats or chills no shortness of breath. She is still feeling somewhat bloated but has no chest or abdominal discomfort for now had a brief episode of chest discomfort when she felt sick to her stomach. MD elicited complaint: nausea, vomiting and diarrhea Onset (ago): minute(s) Description of vomiting: food contents Description of diarrhea: semi-solid Associated nausea: Yes Associated abdominal pain: Yes Location of pain: Diffuse Severity: mild Quality: cramping Exacerbating factors: none Relieving factors: none Associated symtoms: Reports bloating, anorexia and nausea; Denies altered mental status, anxiety, change in vision, chest pain, cough, diaphoresis, decreased urine output, dizziness, dysuria, epistaxis, fatigue, fecal incontinence, fevers/chills, headache(s), malaise, myalgias, numbness, palpitations, rash, short of breath, syncope, tenesmus, tinnitus or weakness Review of Systems Const: Denies: malaise or diaphoresis Eyes: Denies: change in vision ENMT: Denies: tinnitus or epistaxis Card: Denies: chest pain, palpitations or syncope Resp: Denies: dyspnea, productive cough or non-productive cough GI: Reports: nausea and bloating; Denies: fecal incontinence : Denies: dysuria Skin/Breast: Denies: rash or pruritus Neuro: Denies: headache(s) or dizziness Psych: Denies: anxiety PFSH ED PFSH: Medical History Anticoagulation adequate with anticoagulant therapy Aortic stenosis Atrial fibrillation by electrocardiogram CAD (coronary artery disease) CHF (congestive heart failure) Dental caries Diabetes DJD (degenerative joint disease) Gastroenteritis GERD (gastroesophageal reflux disease) HTN (hypertension) Hypercholesterolemia Hyperlipidemia Pacemaker Recurrent UTI Long history of recurrent UTIs suspicious for CHRONIC CYSTITIS. ESBL E. coli documented in 2019. Rhabdomyolysis Urinary incontinence Surgical History H/O colonoscopy yrs ago History of cardiac catheterization History of hernia repair History of hip surgery History of hysterectomy History of knee surgery History of sinus surgery History of tonsillectomy History of umbilical hernia repair Status post placement of cardiac pacemaker Family History Father , in his 60's Lung disease Mother , 99 Hypertension Other Diabetes Stroke Denies family history of CAD (coronary artery disease) Clotting disorder Dementia Chronic kidney disease (CKD) Anesthesia complication Bleeding disorder Social History Smoking and tobacco status: never smoked Quit status (tobacco): has quit using tobacco Former quit date comment: Smoking in her 20s Alcohol intake: never Caregiver/support person: Yes (Home health services Friday) Lives independently: Yes Housing: House Marital status: Current occupational status: retired History of recent travel: No Current gender identity: Female Physical Exam Const: COMMON NORMALS: no acute distress EXAM LIMITATIONS: no altered mental status GENERAL APPEARANCE: cooperative and comfortable ORIENTATION/CONSCIOUSNESS: Yes awake, Yes oriented to person, Yes oriented to place and Yes oriented to time HENMT: COMMON NORMALS: normocephalic, atraumatic and hearing grossly normal bilaterally HEAD & SCALP: normocephalic and atraumatic Eye: COMMON NORMALS: Equal, round and reactive pupils present, EOMs intact bilaterally, conjunctivae normal and no scleral icterus CONJUNCTIVA: Yes conjunctivae normal PUPIL: Yes Equal, round and reactive pupils present Neck/C-Spine: COMMON NORMALS: full ROM, no lymphadenopathy, supple and no JVD Lymph: LYMPHATIC: no lymphadenopathy noted and no lymphedema noted Resp: COMMON NORMALS: normal respiratory effort, No retractions, No use of accessory muscles and clear to auscultation bilaterally AUSCULTATION: clear to auscultation bilaterally Cardio: COMMON NORMALS: no JVD, regular rate, regular rhythm and No murmurs present (Cardio) RATE: regular rate RHYTHM: regular rhythm GI: COMMON NORMALS: Soft to palpation and No hepatosplenomegaly present AUSCULTATION: Yes normoactive bowel sounds PALPATION: Yes Soft to palpation, No Tenderness to palpation present (GI), No Guarding due to palpation present (GI) and Yes No hepatosplenomegaly present Extremity: COMMON NORMALS: normal to inspection, capillary refill normal, no clubbing, cyanosis or edema, no calf tenderness and no pedal edema Neuro: SENSORIUM/ORIENTATION: Yes oriented to person, Yes oriented to place and Yes oriented to time Skin: COMMON NORMALS: no rashes or lesions noted GENERAL SKIN EXAM: no rashes or lesions noted Course Vital Signs: Vital signs: Vital Signs Temperature 98.0 F 09/14/20 09:42 Pulse Rate 76 09/14/20 13:41 Respiratory Rate 16 09/14/20 13:41 Blood Pressure 173/90 09/14/20 11:41 Pulse Oximetry 99 09/14/20 13:41 MDM - Nausea/Vomiting/Diarrhea MDM Narrative: Medical decision making narrative: Symptoms have for the most part resolved she still has a little bloating CT abdomen is negative. Discussed with we will go ahead and discharge her home encourage fluids her BUN and creatinine are slightly elevated but at approximately her baseline normal. Gave her some Zofran to use. Clear liquid diet for 24 to 48 hours advance as needed return if has problems. Lab Data: Labs: Lab Results 09/14/20 09/14/20 09/14/20 Range/Units 10:15 10:24 10:24 WBC 8.9 (4.0-10.0) 10^3/ uL RBC 3.81 L (4.1-5.3) 10^6/u L Hgb 11.6 (11.5-15.3) g/dL Hct 35.4 L (37.0-47.0) % MCV 92.9 (81-99) fL MCH 30.4 (28.0-34.0) pg MCHC 32.8 (30.0-36.0) g/dL RDW 15.2 H (12.1-15.1) % Plt Count 190 (130-400) 10^3/c mm MPV 9.5 (7.4-10.4) fL Neut % (Auto) 73.5 % Lymph % (Auto) 14.0 % [place] % (Auto) 9.4 % Eos % (Auto) 2.0 % Baso % (Auto) 0.5 % Neut # (Auto) 6.52 (1.8-7.7) 10^3/u L Lymph # (Auto) 1.2 (0.8-4.8) 10^3/u L [place] # (Auto) 0.8 (0.2-0.9) 10^3/u L Eos # (Auto) 0.2 (0.0-0.8) 10^3/u L Baso # (Auto) 0.0 (0.0-0.1) 10^3/u L Nucleated RBC % (a uto) 0 % Nucleated RBCs # 0.0 /100WBC Sodium 136 (136-145) mmol/L Potassium 3.6 (3.5-5.1) mmol/L Chloride 98 (98-107) mmol/L Carbon Dioxide 27 (22-29) mmol/L Anion Gap 14.6 (5-19) BUN 30 H (8-23) mg/dL Creatinine 1.3 H (0.5-0.9) mg/dL GFR Calculation 40.5 L (90-130) mL/min Glucose 211 H (65-115) mg/dL Calculated Osmolal ity 294 (285-295) mOsm/k g Calcium 8.9 (8.5-10.5) mg/dL Total Bilirubin 0.7 (0.15-1.2) mg/dL AST 15 (0-32) U/L ALT 16 (0-33) U/L Alkaline Phosphata se 113 H (35-105) IU/L Troponin T Baselin e (0-10) ng/L Troponin T 120 Min [place] (0-10) ng/L Delta Troponin T (0-10) ABS# Total Protein 7.3 (6.6-8.7) g/dL Albumin 3.9 (3.5-5.2) g/dL Globulin 3.4 (1.3-4.6) g/dL Lipase 15 (13-60) U/L Urine Color Yellow (Yellow) Urine Appearance Clear (CLEAR) Urine pH 8 H (5-7) Ur Specific Gravit y 1.005 (1.005-1.030) Urine Protein 1+ H (Negative) Urine Glucose (UA) 2+ (Normal) Urine Ketones Negative (Negative) Urine Blood Trace H (Negative) Urine Nitrate Negative (Negative) Urine Bilirubin Neg (Negative) Prot Sulfosalicyli c Acd Negative (Negative) Urine Urobilinogen Norm (Negative) mg/dL Ur Leukocyte Greer ase Negative (Negative) Urine RBC Rare (0-2) /hpf Urine WBC Rare (0-5) /hpf Ur Squamous Epith Cells 0-4 H (0-5) /hpf Amorphous Sediment Not Reportable Urine Bacteria None (NONE) /hpf 09/14/20 09/14/20 Range/Units 10:24 12:20 WBC (4.0-10.0) 10^3/ uL RBC (4.1-5.3) 10^6/u L Hgb (11.5-15.3) g/dL Hct (37.0-47.0) % MCV (81-99) fL MCH (28.0-34.0) pg MCHC (30.0-36.0) g/dL RDW (12.1-15.1) % Plt Count (130-400) 10^3/c mm MPV (7.4-10.4) fL Neut % (Auto) % Lymph % (Auto) % [place] % (Auto) % Eos % (Auto) % Baso % (Auto) % Neut # (Auto) (1.8-7.7) 10^3/u L Lymph # (Auto) (0.8-4.8) 10^3/u L [place] # (Auto) (0.2-0.9) 10^3/u L Eos # (Auto) (0.0-0.8) 10^3/u L Baso # (Auto) (0.0-0.1) 10^3/u L Nucleated RBC % (a uto) % Nucleated RBCs # /100WBC Sodium (136-145) mmol/L Potassium (3.5-5.1) mmol/L Chloride (98-107) mmol/L Carbon Dioxide (22-29) mmol/L Anion Gap (5-19) BUN (8-23) mg/dL Creatinine (0.5-0.9) mg/dL GFR Calculation (90-130) mL/min Glucose (65-115) mg/dL Calculated Osmolal ity (285-295) mOsm/k g Calcium (8.5-10.5) mg/dL Total Bilirubin (0.15-1.2) mg/dL AST (0-32) U/L ALT (0-33) U/L Alkaline Phosphata se (35-105) IU/L Troponin T Baselin e 29 H (0-10) ng/L Troponin T 120 Min squax[place] 30.05 H (0-10) ng/L Delta Troponin T 1.05 (0-10) ABS# Total Protein (6.6-8.7) g/dL Albumin (3.5-5.2) g/dL Globulin (1.3-4.6) g/dL Lipase (13-60) U/L Urine Color (Yellow) Urine Appearance (CLEAR) Urine pH (5-7) Ur Specific Gravit y (1.005-1.030) Urine Protein (Negative) Urine Glucose (UA) (Normal) Urine Ketones (Negative) Urine Blood (Negative) Urine Nitrate (Negative) Urine Bilirubin (Negative) Prot Sulfosalicyli c Acd (Negative) Urine Urobilinogen (Negative) mg/dL Ur Leukocyte Greer ase (Negative) Urine RBC (0-2) /hpf Urine WBC (0-5) /hpf Ur Squamous Epith Cells (0-5) /hpf Amorphous Sediment Urine Bacteria (NONE) /hpf Discharge Plan Discharge Patient Disposition: Home Clinical Impression: Nausea and vomiting Condition: Stable Prescriptions: New Zofran 4 mg tablet 4 mg PO Q6H PRN (Reason: nausea and vomiting) Qty: 10 RF: 0 No Action glipizide 5 mg tablet 5 mg PO DAILY@08 RF: 0 insulin glargine 100 unit/mL (3 mL) insulin pen 12 unit SUBCUT BEDTIME@20 RF: 0 sennosides-docusate sodium 8.6-50 mg tablet 1 tab PO DAILY PRN (Reason: Constipation) RF: 0 insulin aspart U-100 [Novolog Flexpen U-100 Insulin] 100 unit/mL (3 mL) Insulin Pen See Rx Instructions .ROUTE .COMPLEX RF: 0 isosorbide mononitrate 30 mg tablet extended release 24 hr 30 mg PO BID@08,20 RF: 0 nifedipine 30 mg tablet extended release 30 mg PO DAILY@08 RF: 0 clopidogrel 75 mg tablet 75 mg PO DAILY@08 RF: 0 levothyroxine 50 mcg tablet 50 mcg PO DAILY@08 RF: 0 sertraline 25 mg tablet 25 mg PO DAILY@08 RF: 0 bumetanide 1 mg tablet 1 mg PO DAILY@08 RF: 0 gabapentin 100 mg capsule 100 mg PO BEDTIME@20 RF: 0 rosuvastatin 20 mg tablet 20 mg PO BEDTIME@20 RF: 0 Dexilant 60 mg capsule,biphase delayed releas 60 mg PO DAILY@08 RF: 0 Eliquis 5 mg tablet 2.5 mg PO BID@08,20 RF: 0 nitroglycerin [Nitrostat] 0.4 mg Tablet, Sublingual 0.4 mg SUBLINGUAL Q5M PRN (Reason: Chest Pain) RF: 0 fentanyl 50 mcg/hr patch 72 hour 50 mcg topical Q72H Qty: 10 RF: 0 ondansetron HCl [Zofran] 4 mg Tablet 4 mg PO BID PRN (Reason: Nausea) Qty: 30 RF: 0 acetaminophen 325 mg capsule 325 mg PO QID PRN (Reason: fever or mild pain) Qty: 30 RF: 0 potassium chloride 10 mEq tablet extended release 10 meq PO DAILY@08 RF: 0 Discharge Orders: Discharge ED (Routine); Ordered 09/14/20 Ordered By: Jony Cuello Referrals: Betsy Nuno DO [Primary Care Provider] - Discharge Diet: Clear Liquid Patient Instructions: Opioid Safety Coding Level of Care Code ED Spooler Rubber Strand for Kendall Mckeon
--- NOTE | 2020-09-14 10:01 | CT_ITS ---
WS: [id number] CT ABDOMEN AND PELVIS WITH CONTRAST HISTORY: Abdominal pain. TECHNIQUE: Imaging performed of the abdomen and pelvis with IV contrast. Single phase imaging of the abdomen. Coronal and sagittal reformats are submitted. All CT scans at [facility] use at least one of these dose optimization techniques: automated exposure control; mA and/or kV adjustment per patient size (includes targeted exams where dose is matched to clinical indication); or iterativ e reconstruction. IV CONTRAST: Visipaque 320; 95 mL IV. Oral contrast: No DLP: 1647.3 mGy.cm COMPARISON: 12/02/2019 Lower thorax: Pacer wires noted within the heart. Lung bases are clear. Heart is normal size. Small h iatal hernia. Liver/biliary system: Normal size liver. Very mild central bile duct dilatation. Pancreatic duct is n ormal size. Gallbladder: Mildly distended gallbladder with stones. No pericholecystic fluid or gallbladder wall t hickening. Pancreas: Normal common bile duct at the pancreatic head. There is severe atrophy of the pancreas. Spleen: Normal. Adrenal glands: Normal. Right kidney: Mild cortical thinning. Nonobstructing calcification measuring 5 mm in the upper pole. Left kidney: Mild cortical thinning with no obstruction. Aorta: Moderate atherosclerosis with no aneurysm. Severe atherosclerotic calcification continues into the mesenteric arteries. Lymphadenopathy: None. Free fluid: None. GI tract: No GI tract obstruction. There is moderate fecal retention throughout the colon. Abdominal wall: Thinning of the abdominal wall. No hernia identified. Pelvis: Pelvic structures are being obscured by artifact from the bilateral hip prostheses. No free f luid or adenopathy. Urinary bladder is moderately well distended. Prior hysterectomy. Bones: Severe thoracolumbar scoliosis. Disc fusion across the L1-2 and L2-3 disc spaces. Extensive po stsurgical changes and dystrophic calcifications in the posterior paraspinal soft tissues. CT/CT abdomen pelvis w con* [id number] IMPRESSION: 1. Thinning of the abdominal wall but no hernia. Prior hernia repair. 2. Cholelithiasis within a minimally distended gallbladder. Similar to the meghana or study from 12/02/2019. No bile duct dilatation or evidence for acute cholecys titis by CT. 3. No free fluid or ascites. 4. Extensive atherosclerosis in a nondilated aorta.
--- NOTE | 2020-09-14 10:01 | ECG_ITS ---
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 Measurements Intervals [place] Rate: 74 P: 80 VA: 237 QRS: 265 QRSD: 167 T: 60 QT: 445 QTc: 495 Interpretive Statements A sensed V paced rhythm WARNING: DATA QUALITY MAY AFFECT INTERPRETATION Compared to ECG 09/14/2020 09:55:42 Right bundle-branch block no longer present Myocardial infarct finding no longer present Electronically Signed On 09-14-2020 17:18:38 CDT by Patricia Morelos M.D. [id number]
[2020-09-14 10:10] VITALS: BP 199/82; PULSE 73; RESP 18; O2SAT 100
[2020-09-14 10:31] LABS: Basophils % 0.5 %; Eosinophils # 0.2 10^3/uL (0.0-0.8); Hematocrit 35.4 % (37.0-47.0); Hemoglobin 11.6 g/dL (11.5-15.3); Lymphocytes # 1.2 10^3/uL (0.8-4.8); Mean Corpuscular HGB Conc 32.8 g/dL (30.0-36.0); Mean Corpuscular Hemoglobin 30.4 pg (28.0-34.0); Mean Corpuscular Volume 92.9 fL (81-99); Mean Platelet Volume 9.5 fL (7.4-10.4); Monocytes # 0.8 10^3/uL (0.2-0.9); Monocytes % 9.4 %; Neutrophils # 6.52 10^3/uL (1.8-7.7); Neutrophils % 73.5 %; Nucleated Red Blood Cells % 0 %; Platelet Count 190 10^3/cmm (130-400); Red Blood Count 3.81 10^6/uL (4.1-5.3); Red Cell Distribution Width 15.2 % (12.1-15.1); White Blood Count 8.9 10^3/uL (4.0-10.0)
[2020-09-14 10:50] LABS: Troponin(5th) Baseline 29 ng/L (0-10)
[2020-09-14 10:53] LABS: Alanine Aminotransferase 16 U/L (0-33); Albumin Level 3.9 g/dL (3.5-5.2); Alkaline Phosphatase 113 IU/L (35-105); Anion Gap 14.6 (5-19); Aspartate Amino Transferase 15 U/L (0-32); Blood Urea Nitrogen 30 mg/dL (8-23); Calcium 8.9 mg/dL (8.5-10.5); Carbon Dioxide 27 mmol/L (22-29); Chloride 98 mmol/L (98-107); Globulin 3.4 g/dL (1.3-4.6); Glomerular Filtration Rate 40.5 mL/min (90-130); Glucose 211 mg/dL (65-115); Lipase 15 U/L (13-60); Osmolality Calculated 294 mOsm/kg (285-295); Potassium 3.6 mmol/L (3.5-5.1); Sodium 136 mmol/L (136-145); Total Bilirubin 0.7 mg/dL (0.15-1.2); Total Protein 7.3 g/dL (6.6-8.7)
[2020-09-14 10:58] LABS: Add Urine Microscopic? YES; Bilirubin Urine Neg (Negative); Blood Urine Trace (Negative); Glucose Urine UA 2+ (Normal); Ketones Urine Negative (Negative); Leukocyte Esterase Urine Negative (Negative); Nitrate Urine Negative (Negative); Protein Urine 1+ (Negative); RBC Urine RARE /hpf (0-2); Specific Gravity, Urine 1.005 (1.005-1.030); Squamous Epithelial Cell Urine 0-4 /hpf (0-5); Sulfosalicylic Acid Urine Negative (Negative); Urine Appearance Clear (CLEAR); Urine Color Yellow (Yellow); Urobilinogen Urine Norm (Negative); WBC Urine RARE /hpf (0-5); pH Urine 8 (5-7)
[2020-09-14] MEDS: iodixanol 320 mg/mL 100mL Btl IV (11:15)
[2020-09-14 11:41] VITALS: BP 173/90; PULSE 76; RESP 16; O2SAT 100
--- NOTE | 2020-09-14 12:01 | ECG_ITS ---
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 Measurements Intervals [place] Rate: 71 P: [place]: QRS: 66 QRSD: 144 T: -15 QT: 453 QTc: 494 Interpretive Statements SINUS RHYTHM WITH FIRST DEGREE AV BLOCK RIGHT BUNDLE BRANCH BLOCK POSSIBLE ANTERIOR MYOCARDIAL INFARCTION , OF INDETERMINATE AGE INFERIOR MYOCARDIAL INFARCTION , OF INDETERMINATE AGE Compared to ECG 06/18/2020 10:19:28 Myocardial infarct finding still present Electronically Signed On 09-14-2020 22:41:06 CDT by Patricia Morelos M.D. [id number]
[2020-09-14 12:57] LABS: Troponin 5 2HR 30.05 ng/L (0-10); Troponin 5 2HR Delta 1.05 ABS# (0-10)
[2020-09-14 13:41] VITALS: PULSE 76; RESP 16; O2SAT 99
--- NOTE | 2020-09-14 13:42 | PC.NURSE ---
EKG done at 1325 and shown to ER doctor
== END 2020-09-14 13:42 | disposition home or self-care (01) ==
PROVIDERS: Emergency Provider Family Medicine; PCP Family Medicine
DX: R11.2 Nausea with vomiting, unspecified (principal); Z79.4 Long term (current) use of insulin; Z79.01 Long term (current) use of anticoagulants; I48.91 Unspecified atrial fibrillation; I25.10 Atherosclerotic heart disease of native coronary artery without angina pectoris; I11.0 Hypertensive heart disease with heart failure; I50.9 Heart failure, unspecified; E11.9 Type 2 diabetes mellitus without complications; E78.5 Hyperlipidemia, unspecified; Z95.0 Presence of cardiac pacemaker; Z87.891 Personal history of nicotine dependence
CPT/HCPCS: 74177; 80053; 81001; 83690; 84484; 85025; 93005; 99284; Q9967

== ENCOUNTER 2020-09-19 11:47 | Inpatient (IN) | payer MEDICARE, MEDICAID, SELFPAY ==
[2020-09-19] VITALS (9 sets, daily range): BP systolic 142–178; BP diastolic 50–87; PULSE 65–94; RESP 13–20; TEMP 36.6–37.4; O2SAT 92–100; BMI 46.4
--- NOTE | 2020-09-19 11:54 | XRR_ITS ---
PROCEDURE INFORMATION: Exam: XR Chest Exam date and time: 09/19/2020 12:40 PM Age: 69 years old Clinical indication: Cough TECHNIQUE: Imaging protocol: XR of the chest Views: 1 view. COMPARISON: CR XR chest 1V portable [id number] 06/18/2020 7:20 AM FINDINGS: Tubes, catheters and devices: Permanent pacemaker/AICD. Lungs: Minimal interstitial thickening. No consolidation. Pleural spaces: Unremarkable. No pleural effusion. No pneumothorax. Heart/Mediastinum: Borderline minimal cardiomegaly. Bones/joints: No acute findings. XR/XR chest 1V portable [id number] IMPRESSION: Nonspecific interstitial thickening.
--- NOTE | 2020-09-19 11:54 | ECG_ITS ---
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 Measurements Intervals [place] Rate: 76 P: 129 SD: 291 QRS: 70 QRSD: 154 T: -23 QT: 414 QTc: 466 Interpretive Statements A sensed V sensed rhythm INTRAVENTRICULAR CONDUCTION DELAY [130+ ms QRS DURATION] LATERAL MYOCARDIAL INFARCTION [40+ ms Q WAVE AND/OR ST/T ABNORMALITY IN I/aVL/V5/V6], OF INDETERMINATE AGE Compared to ECG 09/14/2020 13:25:08 First degree AV block now present Intraventricular conduction delay now present Myocardial infarct finding now present Electronically Signed On 09-19-2020 16:59:33 CDT by Cuco Pederson M.D. [id number]
--- NOTE | 2020-09-19 11:56 | W.ED.SYNCOPE ---
HPI - Syncope General: Chief Complaint: Syncope Stated Complaint: GENERAL WEAKNESS Time Seen by Provider: 09/19/20 11:48 History of Present Illness: HPI narrative: This patient is a 69-year-old female who presents to the emergency department complaint of fatigue and weakness. Patient apparently was left by the caregiver last night at 2200 sitting on the couch. Patient apparently slid off the couch sometime during the night was found this morning by caregiver. 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 Patient complains of fatigue and weakness. And a headache. Patient chronically wears a fentanyl patch does appear to be somewhat confused but does not appear to be acutely sick. Patient moves all extremities without difficulty. Will do medical screening exam and evaluate treat further as needed. Associated symptoms: Deny abdominal pain, chest pain, fever(s), headache(s), lightheadedness or nausea Review of Systems General: Reports: 10 or more systems reviewed and unremarkable except in HPI and below Const: Denies: fever(s), chills, body aches or fatigue Eyes: Denies: change in vision or blurry vision ENMT: Denies: throat pain, hoarseness or mouth pain Card: Denies: chest pain, palpitations, irregular heart rhythm, edema, swelling of feet/ankles or lightheadedness Resp: Denies: dyspnea, productive cough, non-productive cough, wheezing or pain on inspiration GI: Denies: abdominal pain, nausea or vomiting : Denies: flank pain, difficulty voiding, dysuria, urinary frequency, urinary urgency or urinary hesitancy Musc: Denies: neck pain, back pain, extremity pain, extremity swelling, joint pain, joint swelling, joint redness, joint warmth or limited range of motion Skin/Breast: Denies: rash, pruritus, erythema or skin tenderness Neuro: Denies: headache(s), numbness in extremities or weakness in extremities Psych: Denies: anxiety or depression PFS ED PFSH: Medical History (Updated 09/19/20 @ 13:40 by Bahman Oswald MD) Anticoagulation adequate with anticoagulant therapy Aortic stenosis Atrial fibrillation by electrocardiogram CAD (coronary artery disease) CHF (congestive heart failure) Dental caries Diabetes DJD (degenerative joint disease) Gastroenteritis GERD (gastroesophageal reflux disease) HTN (hypertension) Hypercholesterolemia Hyperlipidemia Pacemaker Recurrent UTI Long history of recurrent UTIs suspicious for CHRONIC CYSTITIS. ESBL E. coli documented in 2019. Rhabdomyolysis Urinary incontinence Surgical History H/O colonoscopy yrs ago History of cardiac catheterization History of hernia repair History of hip surgery History of hysterectomy History of knee surgery History of sinus surgery History of tonsillectomy History of umbilical hernia repair Status post placement of cardiac pacemaker Family History Father , in his 60's Lung disease Mother , 99 Hypertension Other Diabetes Stroke Denies family history of CAD (coronary artery disease) Clotting disorder Dementia Chronic kidney disease (CKD) Anesthesia complication Bleeding disorder Social History Smoking and tobacco status: never smoked Quit status (tobacco): has quit using tobacco Former quit date comment: Smoking in her 20s Alcohol intake: never Caregiver/support person: Yes (Home health services Friday) Lives independently: Yes Housing: House Marital status: Current occupational status: retired History of recent travel: No Current gender identity: Female Physical Exam Const: COMMON NORMALS: no acute distress, average body habitus, patient oriented x3, no limitations, healthy appearing, alert and well nourished HENMT: COMMON NORMALS: normocephalic, atraumatic, hearing grossly normal bilaterally, external ears normal, EAC's normal, TM's normal bilaterally, Normal external nose present, Normal nasal mucous membranes and turbinates present, moist oral mucous membranes, oropharynx normal, dentition normal and gingiva normal HEAD & SCALP: normocephalic and atraumatic NOSE: Normal external nose present and Normal nasal mucous membranes and turbinates present EXTERNAL EAR: Yes external ears normal EXTERNAL AUDITORY CANAL: EAC's normal TYMPANIC MEMBRANE: TM's normal bilaterally Neck/C-Spine: COMMON NORMALS: full ROM, no lymphadenopathy, supple, no meningeal signs, no JVD, Thyroid normal and No carotid bruits THYROID: Thyroid normal Chest: COMMONS NORMALS: normal inspection of the chest, normal palpation of entire chest wall, normal inspection of the breasts and normal palpation of the breasts Breast/axilla inspection: Yes normal inspection of the breasts BREAST/AXILLA PALPATION: Yes normal palpation of the breasts Resp: COMMON NORMALS: normal respiratory effort, No retractions, No use of accessory muscles, clear to auscultation bilaterally and percussion normal AUSCULTATION: clear to auscultation bilaterally PERCUSSION: percussion normal Cardio: COMMON NORMALS: no JVD, regular rate, regular rhythm, S1 normal heart sound present, S2 normal heart sound present, No gallops present (Cardio), No clicks present (Cardio), No murmurs present (Cardio), No rub (Cardio) and Peripheral pulses 2+ throughout RATE: regular rate RHYTHM: regular rhythm HEART SOUNDS: S1 normal heart sound present and S2 normal heart sound present PERIPHERAL PULSES: Peripheral pulses 2+ throughout GI: COMMON NORMALS: Normal to inspection, nondistended, normoactive bowel sounds present, Soft to palpation, non-tender, No hepatosplenomegaly present, no masses and no bruits PALPATION: Yes Soft to palpation and Yes No hepatosplenomegaly present : COMMON NORMALS: Yes no CVA tenderness, Yes normal external appearance, Yes normal appearance of the vagina, Yes normal appearance of the cervix, Yes normal bimanual exam, Yes No adnexal tenderness and Yes no masses BLADDER/KIDNEY EXAM: Yes no CVA tenderness BIMANUAL EXAM - VAGINA & UTERUS: Yes normal bimanual exam Back/Pelvis: COMMON NORMALS: no CVA tenderness, thoracic and lumbar spine normal to inspection, no thoracic nor lumbar tenderness, thoraco-lumbar ROM normal and straight leg raise negative bilaterally Extremity: COMMON NORMALS: normal to inspection, full ROM, capillary refill normal, no joint enlargement, no clubbing, cyanosis or edema, no calf tenderness and no pedal edema Neuro: COMMON NORMALS: patient oriented x3 SENSORIUM/ORIENTATION: Yes alert MENINGEAL SIGNS: Yes no meningeal signs Course Reevaluation(s): Reevaluation #1: Patient appears to be back at her mental baseline after removal of the fentanyl patch. Brother is at the bedside. He states the patient appears to be at her baseline. Patient is talkative and alert this time. Patient was seen just couple days ago for nausea vomiting but did not get her Zofran filled. Patient states she is feeling much improved. I did discuss with patient about her current stent problems with chronic pain and fentanyl patches. Causing her confusion. Time: 13:36 Reevaluation #2: Negative CT scan. Patient's mental status waxes and wanes appears to be at her baseline but the second time the patient's been in the emergency department with issues of nausea vomiting and confusion. Medication problems. Will discuss with hospitalist about admission for observation to the confusion they will need to discuss possible medication adjustments for her chronic pain. Continue to monitor. Time: 13:48 Consultations: Consultation #1: I discussed at length with Dr. Morris. He agrees with observation. Patient will be admitted to the floor he will see patient for further orders. Time: 13:55 Vital Signs: Vital signs: Vital Signs Temperature 99.4 F 09/19/20 11:48 Pulse Rate 85 09/19/20 11:48 Respiratory Rate 19 H 09/19/20 11:48 Blood Pressure 178/85 09/19/20 11:48 Pulse Oximetry 96 09/19/20 11:48 MDM - Syncope Differential Diagnosis: Syncope differential diagnosis: Likely syncope due to orthostatic hypotension, vasovagal syncope and dehydration Medical Records: Attestation: I reviewed the patient's medical records. Lab Data: Attestation: I reviewed the patient's lab results. Labs: Lab Results 09/19/20 09/19/20 09/19/20 Range/Units 12:30 12:30 12:30 WBC 9.1 (4.0-10.0) 10^3/ uL RBC 4.39 (4.1-5.3) 10^6/u L Hgb 13.4 (11.5-15.3) g/dL Hct 40.0 (37.0-47.0) % MCV 91.1 (81-99) fL MCH 30.5 (28.0-34.0) pg MCHC 33.5 (30.0-36.0) g/dL RDW 15.0 (12.1-15.1) % Plt Count 256 (130-400) 10^3/c mm MPV 10.5 H (7.4-10.4) fL Neut % (Auto) 75.8 % Lymph % (Auto) 13.4 % [place] % (Auto) 10.1 % Eos % (Auto) 0.0 % Baso % (Auto) 0.5 % Neut # (Auto) 6.90 (1.8-7.7) 10^3/u L Lymph # (Auto) 1.2 (0.8-4.8) 10^3/u L [place] # (Auto) 0.9 (0.2-0.9) 10^3/u L Eos # (Auto) 0.0 (0.0-0.8) 10^3/u L Baso # (Auto) 0.1 (0.0-0.1) 10^3/u L Nucleated RBC % (a uto) 0 % Nucleated RBCs # 0.0 /100WBC PT Cancelled INR Cancelled APTT Cancelled Sodium 141 (136-145) mmol/L Potassium 3.3 L (3.5-5.1) mmol/L Chloride 101 (98-107) mmol/L Carbon Dioxide 23 (22-29) mmol/L Anion Gap 20.3 H (5-19) BUN 33 H (8-23) mg/dL Creatinine 1.5 H (0.5-0.9) mg/dL GFR Calculation 34.3 L (90-130) mL/min Glucose 211 H (65-115) mg/dL Calculated Osmolal ity 306 H (285-295) mOsm/k g Calcium 9.5 (8.5-10.5) mg/dL Total Bilirubin 1.4 H (0.15-1.2) mg/dL AST 23 (0-32) U/L ALT 15 (0-33) U/L Alkaline Phosphata se 107 H (35-105) IU/L Total Protein 7.7 (6.6-8.7) g/dL Albumin 4.2 (3.5-5.2) g/dL Globulin 3.5 (1.3-4.6) g/dL Urine Color (Yellow) Urine Appearance (CLEAR) Urine pH (5-7) Ur Specific Gravit y (1.005-1.030) Urine Protein (Negative) Urine Glucose (UA) (Normal) Urine Ketones (Negative) Urine Blood (Negative) Urine Nitrate (Negative) Urine Bilirubin (Negative) Urine Urobilinogen (Negative) mg/dL Ur Leukocyte Greer ase (Negative) Urine RBC (0-2) /hpf Urine WBC (0-5) /hpf Ur Squamous Epith Cells (0-5) /hpf Amorphous Sediment Urine Bacteria (NONE) /hpf Urine Opiates Scre en (Negative) ng/mL Ur Barbiturates Sc reen (Negative) ng/mL Ur Phencyclidine S crn (Negative) ng/mL Ur Amphetamines Sc reen (Negative) ng/mL U Benzodiazepines Scrn (Negative) ng/mL Urine Cocaine Scre en (Negative) ng/mL U Marijuana (THC) Screen (Negative) ng/mL 09/19/20 09/19/20 Range/Units 12:30 12:30 WBC (4.0-10.0) 10^3/ uL RBC (4.1-5.3) 10^6/u L Hgb (11.5-15.3) g/dL Hct (37.0-47.0) % MCV (81-99) fL MCH (28.0-34.0) pg MCHC (30.0-36.0) g/dL RDW (12.1-15.1) % Plt Count (130-400) 10^3/c mm MPV (7.4-10.4) fL Neut % (Auto) % Lymph % (Auto) % [place] % (Auto) % Eos % (Auto) % Baso % (Auto) % Neut # (Auto) (1.8-7.7) 10^3/u L Lymph # (Auto) (0.8-4.8) 10^3/u L [place] # (Auto) (0.2-0.9) 10^3/u L Eos # (Auto) (0.0-0.8) 10^3/u L Baso # (Auto) (0.0-0.1) 10^3/u L Nucleated RBC % (a uto) % Nucleated RBCs # /100WBC PT INR APTT Sodium (136-145) mmol/L Potassium (3.5-5.1) mmol/L Chloride (98-107) mmol/L Carbon Dioxide (22-29) mmol/L Anion Gap (5-19) BUN (8-23) mg/dL Creatinine (0.5-0.9) mg/dL GFR Calculation (90-130) mL/min Glucose (65-115) mg/dL Calculated Osmolal ity (285-295) mOsm/k g Calcium (8.5-10.5) mg/dL Total Bilirubin (0.15-1.2) mg/dL AST (0-32) U/L ALT (0-33) U/L Alkaline Phosphata se (35-105) IU/L Total Protein (6.6-8.7) g/dL Albumin (3.5-5.2) g/dL Globulin (1.3-4.6) g/dL Urine Color Yellow (Yellow) Urine Appearance Clear (CLEAR) Urine pH 7 (5-7) Ur Specific Gravit y 1.010 (1.005-1.030) Urine Protein 3+ H (Negative) Urine Glucose (UA) 2+ (Normal) Urine Ketones 1+ H (Negative) Urine Blood 3+ H (Negative) Urine Nitrate Negative (Negative) Urine Bilirubin Neg (Negative) Urine Urobilinogen Norm (Negative) mg/dL Ur Leukocyte Greer ase Negative (Negative) Urine RBC 5-10 H (0-2) /hpf Urine WBC None (0-5) /hpf Ur Squamous Epith Cells 0-4 H (0-5) /hpf Amorphous Sediment Not Reportable Urine Bacteria 1+ H (NONE) /hpf Urine Opiates Scre en Negative (Negative) ng/mL Ur Barbiturates Sc reen Negative (Negative) ng/mL Ur Phencyclidine S crn Negative (Negative) ng/mL Ur Amphetamines Sc reen Negative (Negative) ng/mL U Benzodiazepines Scrn Negative (Negative) ng/mL Urine Cocaine Scre en Negative (Negative) ng/mL U Marijuana (THC) Screen Negative (Negative) ng/mL Imaging Data^: CXR: Attestation: I personally reviewed and interpreted this imaging study as follows: My impression: No acute findings. Radiologist's impression: IMPRESSION: No acute findings. CT Head: Attestation: I personally reviewed and interpreted this imaging study as follows: My impression: No acute findings EKG Data^: EKG 1: Attestation: I personally reviewed and interpreted this EKG as follows: EKG interpretation date: 09/19/20 EKG interpretation time: 12:46 Prior EKG tracings: available for review Ischemic changes: non-specific ST-T wave changes Interpretation: Sinus rhythm with a first-degree AV block. Nonspecific intraconduction delay delay nonspecific EKG changes heart rate 76 Discharge Plan Discharge Patient Disposition: Placed in Observation Clinical Impression: Drug side effects, Constipation due to opioid therapy, Confusion, Chronic kidney insufficiency Condition: Stable Prescriptions: No Action glipizide 5 mg tablet 5 mg PO DAILY@08 RF: 0 insulin glargine 100 unit/mL (3 mL) insulin pen 12 unit SUBCUT BEDTIME@20 RF: 0 sennosides-docusate sodium 8.6-50 mg tablet 1 tab PO DAILY PRN (Reason: Constipation) RF: 0 insulin aspart U-100 [Novolog Flexpen U-100 Insulin] 100 unit/mL (3 mL) Insulin Pen See Rx Instructions .ROUTE .COMPLEX RF: 0 isosorbide mononitrate 30 mg tablet extended release 24 hr 30 mg PO BID@08,20 RF: 0 nifedipine 30 mg tablet extended release 30 mg PO DAILY@08 RF: 0 clopidogrel 75 mg tablet 75 mg PO DAILY@08 RF: 0 levothyroxine 50 mcg tablet 50 mcg PO DAILY@08 RF: 0 sertraline 25 mg tablet 25 mg PO DAILY@08 RF: 0 bumetanide 1 mg tablet 1 mg PO DAILY@08 RF: 0 gabapentin 100 mg capsule 100 mg PO BEDTIME@20 RF: 0 rosuvastatin 20 mg tablet 20 mg PO BEDTIME@20 RF: 0 Dexilant 60 mg capsule,biphase delayed releas 60 mg PO DAILY@08 RF: 0 Eliquis 5 mg tablet 2.5 mg PO BID@08,20 RF: 0 nitroglycerin [Nitrostat] 0.4 mg Tablet, Sublingual 0.4 mg SUBLINGUAL Q5M PRN (Reason: Chest Pain) RF: 0 fentanyl 50 mcg/hr patch 72 hour 50 mcg topical Q72H Qty: 10 RF: 0 ondansetron HCl [Zofran] 4 mg Tablet 4 mg PO BID PRN (Reason: Nausea) Qty: 30 RF: 0 acetaminophen 325 mg capsule 325 mg PO QID PRN (Reason: fever or mild pain) Qty: 30 RF: 0 potassium chloride 10 mEq tablet extended release 10 meq PO DAILY@08 RF: 0 Referrals: Betsy Nuno DO [Primary Care Provider] - Activity Restrictions/Additional Instructions: Encourage p.o. fluids. Monitor closely her fentanyl patches for chronic pain. Your confusion today most likely was related to the fentanyl patches. Follow-up with your PCP discuss alternative medications and changes. It is not recommended that she use the fentanyl patch if tolerable. Use Senokot [id number] for constipation. Follow-up with PCP in 2 to 3 days. 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
--- NOTE | 2020-09-19 11:58 | CTR_ITS ---
PROCEDURE INFORMATION: Exam: CT Head Without Contrast Exam date and time: 09/19/2020 12:15 PM Age: 69 years old Clinical indication: Pain; Headache not specified; Patient HX: Scanned twice due to motion; Additional info: Headache x 3 days TECHNIQUE: Imaging protocol: Computed tomography of the head without contrast. Radiation optimization: All CT scans at this facility use at least one of these dose optimization techniques: automated exposure control; mA and/or kV adjustment per patient size (includes targeted exams where dose is matched to clinical indication); or iterative reconstruction. COMPARISON: CT head wo con* [id number] 10/01/2019 3:55 AM RADIATION DOSE METRICS: Total DLP (mGy-cm): 2278.09 FINDINGS: Brain: No hemorrhage, edema, or mass effect. Nonspecific decreased attenuation in both hemispheres compatible with chronic ischemic change. Cerebral ventricles: No ventriculomegaly. Bones/joints: Unremarkable. No acute fracture. Paranasal sinuses: Visualized sinuses are unremarkable. No fluid levels. Mastoid air cells: Unremarkable. Soft tissues: Unremarkable. CT/CT head wo con* [id number] IMPRESSION: No acute findings. Radiation Dose CTDIVOL = (mGy): DLP = 2278.09 (mGy-cm)
[2020-09-19 12:42] LABS: Basophils # 0.1 10^3/uL (0.0-0.1); Basophils % 0.5 %; Hemoglobin 13.4 g/dL (11.5-15.3); Lymphocytes # 1.2 10^3/uL (0.8-4.8); Lymphocytes % 13.4 %; Mean Corpuscular HGB Conc 33.5 g/dL (30.0-36.0); Mean Corpuscular Hemoglobin 30.5 pg (28.0-34.0); Mean Corpuscular Volume 91.1 fL (81-99); Mean Platelet Volume 10.5 fL (7.4-10.4); Monocytes # 0.9 10^3/uL (0.2-0.9); Monocytes % 10.1 %; Neutrophils % 75.8 %; Nucleated Red Blood Cells % 0 %; Platelet Count 256 10^3/cmm (130-400); Red Blood Count 4.39 10^6/uL (4.1-5.3); White Blood Count 9.1 10^3/uL (4.0-10.0)
[2020-09-19 12:58] LABS: Alanine Aminotransferase 15 U/L (0-33); Albumin Level 4.2 g/dL (3.5-5.2); Alkaline Phosphatase 107 IU/L (35-105); Anion Gap 20.3 (5-19); Aspartate Amino Transferase 23 U/L (0-32); Blood Urea Nitrogen 33 mg/dL (8-23); Calcium 9.5 mg/dL (8.5-10.5); Carbon Dioxide 23 mmol/L (22-29); Chloride 101 mmol/L (98-107); Globulin 3.5 g/dL (1.3-4.6); Glomerular Filtration Rate 34.3 mL/min (90-130); Glucose 211 mg/dL (65-115); Osmolality Calculated 306 mOsm/kg (285-295); Potassium 3.3 mmol/L (3.5-5.1); Sodium 141 mmol/L (136-145); Total Bilirubin 1.4 mg/dL (0.15-1.2); Total Protein 7.7 g/dL (6.6-8.7)
[2020-09-19 13:09] LABS: Blood Urine 3+ (Negative); Glucose Urine UA 2+ (Normal); Ketones Urine 1+ (Negative); Protein Urine 3+ (Negative); Urine Appearance Clear (CLEAR); Urine Color Yellow (Yellow); pH Urine 7 (5-7)
[2020-09-19 13:10] LABS: Add Urine Microscopic? YES; Bilirubin Urine Neg (Negative); Leukocyte Esterase Urine Negative (Negative); Nitrate Urine Negative (Negative); Urobilinogen Urine Norm (Negative)
[2020-09-19 13:15] LABS: Amphetamines Screen Urine Negative (Negative); Barbiturates Screen Urine Negative (Negative); Benzodiazepines Screen Urine Negative (Negative); Cocaine Screen Urine Negative (Negative); Opiate Screen Urine Negative (Negative); PCP Screen Urine Negative (Negative); THC Screen Urine Negative (Negative)
[2020-09-19] MEDS: sodium chloride 0.9% 500 ML IV (13:26)
[2020-09-19] MEDS: ondansetron 2 mg/ML SDV 2 mL 4 MG IVP (13:26)
[2020-09-19] MEDS: acetaminophen 325 mg Tablet 650 MG PO (13:26)
[2020-09-19 13:30] LABS: Add Urine Culture? No; Bacteria Urine 1+ /hpf; Squamous Epithelial Cell Urine 0-4 /hpf (0-5)
[2020-09-19] MEDS: D5-NS 0.45% + KCL 20 mEq 20 MEQ/1,000 ML BAG 100 MEQ IV (14:42)
--- NOTE | 2020-09-19 15:34 | PM.HP ---
Providers/Chief Complaint Admitting Physician: Barrett Maloney MD Primary Care Provider: Betsy Nuno DO Chief Complaint: GENERAL WEAKNESS History of Present Illness Fantasma Montalvo is a 69 year old female with a past medical history of CAD status post elective first diagonal and RCA, history of contrast-induced nephropathy, history of Mobitz type I and II AV block, atrial fibrillation on Eliquis, CHF, insulin-dependent type 2 diabetes mellitus, GERD, hypertension, hypercholesterolemia history of pacemaker placement, history of recurrent UTIs, history of ESBL UTIs who presents to [facility] for concerns for altered mental status. Currently patient is alert to person, not to place, not to time, she does not know that she is here in the hospital, she has no complaints, she does not know what is going on, she does follow commands, such as squeezing my fingers, wiggling her toes. According to ER physician, patient was left by caregiver at 11 PM yesterday, she was on the couch, during the night apparently she slid off the couch and was found in the morning on the floor by her caregiver. EMS was called, her only complaints were for fatigue and weakness. She does wear a fentanyl patch, which was removed with some mild improvement in her mentation. Work-up in the ER showed a creatinine of 1.5, UA no significant evidence of UTI, urine toxicology was negative, chest x-ray no focal pneumonia Review of Systems General: Reports: ROS unobtainable due to medical condition Medications/Allergies Home Medications Medication Instructions Recorded Confirmed Last Taken Type acetaminophen 325 mg PO QID PRN #30 cap 10/04/19 09/19/20 Unknown Rx fentanyl 50 mcg TOPICAL Q72H #10 ea 10/04/19 09/19/20 09/19/20 Rx ondansetron HCl [Zofran] 4 mg PO BID PRN #30 tab 10/04/19 09/19/20 02/27/20 Rx glipizide 5 mg tablet 5 mg PO DAILY@08 11/12/19 09/19/20 09/19/20 History insulin glargine 100 unit/mL (3 12 unit SUBCUT BEDTIME@20 ml 11/12/19 09/19/20 09/18/20 History mL) subcutaneous pen sennosides 8.6 mg-docusate sodium 1 tab PO DAILY PRN tab 05/29/20 04/06/21 09/13/20 History 50 mg tablet potassium chloride 10 meq PO DAILY@01/05/20 09/19/20 09/19/20 History Dexilant 60 mg PO DAILY@05/25/20 09/19/20 09/19/20 History Eliquis 2.5 mg PO BID@05/25/20 09/19/20 09/19/20 History bumetanide 1 mg PO DAILY@05/25/20 09/19/20 09/19/20 History clopidogrel 75 mg PO DAILY@05/25/20 09/19/20 09/19/20 History gabapentin 100 mg PO BEDTIME@05/25/20 09/19/20 09/18/20 History insulin aspart U-100 [Novolog See Rx Instructions .ROUTE .COMPLEX 05/25/20 09/19/20 Unknown History Flexpen U-100 Insulin] isosorbide mononitrate 30 mg PO BID@05/25/20 09/19/20 09/19/20 History levothyroxine 50 mcg PO DAILY@05/25/20 09/19/20 09/19/20 History nifedipine 30 mg PO DAILY@05/25/20 09/19/20 09/19/20 History nitroglycerin [Nitrostat] 0.4 mg SUBLINGUAL Q5M PRN 05/25/20 09/19/20 Unknown History rosuvastatin 20 mg PO BEDTIME@05/25/20 09/19/20 09/19/20 History sertraline 25 mg PO DAILY@05/25/20 09/19/20 09/19/20 History Allergies Allergy/AdvReac Type Severity Reaction Status Date / Time citalopram [From Celexa] Allergy Unknown Verified 06/27/20 15:12 duloxetine [From Cymbalta] Allergy Unknown Verified 06/27/20 15:12 prochlorperazine Allergy ALGY-Anaphy Verified 06/27/20 15:12 [From Compazine] laxis shellfish derived Allergy Unknown Verified 06/27/20 15:12 sucralfate [From Carafate] Allergy Unknown Verified 06/27/20 15:12 trazodone Allergy Unknown Verified 06/27/20 15:12 zaleplon [From Sonata] Allergy Unknown Verified 06/27/20 15:12 PFSH Acute PFSH: Medical History (Updated 09/19/20 @ 15:44 by Barrett Maloney MD) Anticoagulation adequate with anticoagulant therapy Aortic stenosis Atrial fibrillation by electrocardiogram CAD (coronary artery disease) CHF (congestive heart failure) Dental caries Diabetes DJD (degenerative joint disease) Gastroenteritis GERD (gastroesophageal reflux disease) HTN (hypertension) Hypercholesterolemia Hyperlipidemia Pacemaker Recurrent UTI Long history of recurrent UTIs suspicious for CHRONIC CYSTITIS. ESBL E. coli documented in 2019. Rhabdomyolysis Urinary incontinence Surgical History H/O colonoscopy yrs ago History of cardiac catheterization History of hernia repair History of hip surgery History of hysterectomy History of knee surgery History of sinus surgery History of tonsillectomy History of umbilical hernia repair Status post placement of cardiac pacemaker Family History Father , in his 60's Lung disease Mother , 99 Hypertension Other Diabetes Stroke Denies family history of CAD (coronary artery disease) Clotting disorder Dementia Chronic kidney disease (CKD) Anesthesia complication Bleeding disorder Social History Smoking and tobacco status: never smoked Quit status (tobacco): has quit using tobacco Former quit date comment: Smoking in her 20s Alcohol intake: never Caregiver/support person: Yes (Home health services Friday) Lives independently: Yes Housing: House Marital status: Current occupational status: retired History of recent travel: No Current gender identity: Female Vitals/I&O/Wt Last Vital Signs Temp 99.4 F 09/19/20 11:48 Pulse 85 09/19/20 11:48 Resp 19 H 09/19/20 11:48 BP 178/85 09/19/20 11:48 Pulse Ox 96 09/19/20 11:48 09/19/20 09/19/20 09/19/20 06:59 14:59 22:59 Intake Total 500 / 500 Balance 500 / 500 Weight last 48 hrs Weight 104.326 kg Physical Exam Const: COMMON NORMALS: no acute distress GENERAL APPEARANCE: cooperative and comfortable ORIENTATION/CONSCIOUSNESS: Yes awake, Yes oriented to person and Yes confused; not oriented to place and not oriented to time HENMT: COMMON NORMALS: normocephalic HEAD & SCALP: normocephalic Eye: COMMON NORMALS: Equal, round and reactive pupils present, EOMs intact bilaterally and no papilledema GENERAL EYE: appearance normal, both eyes and all related structures PUPIL: Yes Equal, round and reactive pupils present DIRECT OPHTHALMOSCOPY: Yes no papilledema Neck/C-Spine: COMMON NORMALS: full ROM, no lymphadenopathy, no JVD and Thyroid normal THYROID: Thyroid normal Lymph: LYMPHATIC: no lymphadenopathy noted Resp: COMMON NORMALS: normal respiratory effort, No retractions, No use of accessory muscles and clear to auscultation bilaterally AUSCULTATION: clear to auscultation bilaterally Cardio: COMMON NORMALS: no JVD, regular rate, regular rhythm, S1 normal heart sound present, S2 normal heart sound present, No gallops present (Cardio), No clicks present (Cardio) and No murmurs present (Cardio) RATE: regular rate RHYTHM: regular rhythm HEART SOUNDS: S1 normal heart sound present and S2 normal heart sound present GI: COMMON NORMALS: Normal to inspection, nondistended, normoactive bowel sounds present, Soft to palpation, non-tender and No hepatosplenomegaly present PALPATION: Yes Soft to palpation and Yes No hepatosplenomegaly present Extremity: COMMON NORMALS: normal to inspection, full ROM and no pedal edema Neuro: COMMON NORMALS: moves all extremities and no focal motor deficits SENSORIUM/ORIENTATION: Yes alert, Yes oriented to person, No oriented to place and No oriented to time SPEECH: speech normal MOTOR EXAM: 5/5 motor strength present throughout OTHER: She does follow commands such as wiggling her toes, squeezes my fingers, does do some neurologic testing, but does not follow comprehensive testing, no slurring of her speech, no facial droop, she has good strength in upper and lower extremities, no focal weakness that I could detect Psych: COMMON NORMALS: mental status grossly normal, Normal thought process present and cooperative THOUGHT PROCESS: Normal thought process present Urinary Catheter Management^: José: Cath Placed During This Visit: yes Urinary Catheter Date of Insertion: 09/19/20 Urinary Catheter Time of Insertion: 14:37 Data : 09/19/20 12:30 09/19/20 12:30 A&P Assessment and plan (1) AMS (altered mental status): -Chest x-ray no focal pneumonia -CT of the head no acute stroke or intracranial bleed -UA has no significant evidence of UTI, but patient has history of recurrent UTIs, ESBL E. coli UTIs -Urine toxicology unremarkable -EKG no acute ST-T wave changes -Potassium 3.3, no other significant electrolyte abnormalities -Creatinine is 1.5 -Alert to person, not to place, not to time, does follow some commands Plan: -Admit to general medical floors -Neurochecks -Seizure precautions, aspiration precautions -We will start her on Primaxin given her history of recurrent UTIs, ESBL E. coli UTIs -Follow urine cultures, blood cultures -Continue D5 normal saline, avoid fluid overload -Carotid ultrasound, cardiac echo, telemetry monitoring -Troponin, BMP, inflammatory markers -Hold gabapentin, hold fentanyl -For now full code -Eliquis for DVT prophylaxis Status: Acute (2) FARRUKH (acute kidney injury): FARRUKH on CKD, continue IV hydration Status: Acute (3) Chronic kidney insufficiency: Status: Acute (4) Pacemaker: Status: Acute (5) Anticoagulation adequate with anticoagulant therapy: Continue Eliquis Status: Acute (6) Hypercholesterolemia: Status: Acute (7) HTN (hypertension): Status: Acute (8) CAD (coronary artery disease): Continue Plavix, Status: Acute Qualifiers: Associated angina: without angina Coronary Disease-Associated Artery/Lesion type: [place] artery [place] vs. transplanted heart: [place] heart Qualified Code(s): I25.10 - Atherosclerotic heart disease of [place] coronary artery without angina pectoris (9) Diabetes: Continue insulin sliding scale, Lantus Status: Acute Qualifiers: Diabetes mellitus type: type 2 (10) Aortic stenosis: Status: Acute Qualifiers: Cardiac valve disease etiology: nonrheumatic Qualified Code(s): I35.0 - Nonrheumatic aortic (valve) stenosis (11) Atrial fibrillation by electrocardiogram: Status: Acute (12) Grade II diastolic dysfunction: Hold Bumex Status: Acute Attestations Medical Necessity Statement*: Patient requires hospitalization, outpatient with observation, for altered mental status, FARRUKH Coding Level of Care Code Acute Home Aide for [facility] Fwd Diagnoses AMS (altered mental status) R41.82 FARRUKH (acute kidney injury) N17.9 Chronic kidney insufficiency N18.9 Pacemaker Z95.0 Anticoagulation adequate with anticoagulant therapy Z79.01 Hypercholesterolemia E78.00 HTN (hypertension) I10 CAD (coronary artery disease) I25.10 Associated angina: without angina Coronary Disease-Associated Artery/Lesion type: [place] artery [place] vs. transplanted heart: [place] heart Diabetes E11.9 Diabetes mellitus type: type 2 Aortic stenosis I35.0 Cardiac valve disease etiology: nonrheumatic Atrial fibrillation by electrocardiogram I48.91 Grade II diastolic dysfunction I51.9
--- NOTE | 2020-09-19 16:28 | ECG_ITS ---
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 Measurements Intervals [place] Rate: 75 P: TN: QRS: 54 QRSD: 158 T: -31 QT: 445 QTc: 498 Interpretive Statements Sinus rhythm with first degree AV block RIGHT BUNDLE BRANCH BLOCK [120+ ms QRS DURATION, UPRIGHT V1, 40+ ms S IN I/aVL/V4/V5/V6] Compared to ECG 09/19/2020 12:46:37 Right bundle-branch block now present Intraventricular conduction delay no longer present Myocardial infarct finding no longer present Electronically Signed On 09-19-2020 17:57:53 CDT by Cuco Pederson M.D. [id number]
[2020-09-19 17:14] LABS: Glucose Point of Care 209 mg/dL (70-110)
--- NOTE | 2020-09-19 17:41 | ECG_ITS ---
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 Measurements Intervals [place] Rate: 74 P: -87 [place]: 271 QRS: 66 QRSD: 156 T: -15 QT: 438 QTc: 486 Interpretive Statements SINUS RHYTHM WITH FIRST DEGREE AV BLOCK RIGHT BUNDLE BRANCH BLOCK [120+ ms QRS DURATION, UPRIGHT V1, 40+ ms S IN I/aVL/V4/V5/V6] Compared to ECG 09/19/2020 17:11:31 No significant changes Electronically Signed On 09-19-2020 18:37:57 CDT by Cuco Pederson M.D. [id number]
[2020-09-19 18:45] LABS: Lactic Sepsis W/Reflex 1.2 mmol/L (0.5-2.2)
[2020-09-19 18:47] LABS: Troponin(5th) Baseline 58 ng/L (0-10)
[2020-09-19 18:55] LABS: NT Pro B Type Natriuretic Pept 3551 pg/mL (0-125); Procalcitonin 0.08 ng/mL (0-0.5)
[2020-09-19 19:06] LABS: C Reactive Protein 7.6 mg/L (0.0-4.9)
[2020-09-19 19:13] LABS: Creatine Phosphokinase 442 U/L (26-192)
[2020-09-19 19:15] LABS: Erythrocyte Sedimentation Rate 80 mm/hr (0-15)
[2020-09-19 20:33] LABS: Troponin 5 2HR 56.71 ng/L (0-10)
[2020-09-19] MEDS: atorvastatin 40 mg Tablet 80 MG PO (20:39)
[2020-09-19] MEDS: apixaban 5 mg Tablet 2.5 MG PO (20:39)
[2020-09-19] MEDS: isosorbide mononitrate ER 30 mg Tablet PO (20:39)
[2020-09-19] MEDS: insulin glargine 100 units/1 mL 12 UNIT SUBCUT (20:39)
[2020-09-19 20:57] LABS: Troponin 5 2HR Delta -1.29 ABS# (0-10)
[2020-09-19 20:59] LABS: Glucose Point of Care 152 mg/dL (70-110)
[2020-09-19 21:53] LABS: INR 1.19 (0.8-1.2)
[2020-09-19 21:54] LABS: Partial Thromboplastin Time 29.7 SECONDS (23.9-36.7)
[2020-09-19 22:06] LABS: Troponin 5 6HR 56.95 ng/L (0-10)
[2020-09-19 22:07] LABS: Troponin 5 6HR Delta -1.05 ng/L (0-12)
[2020-09-20] VITALS (7 sets, daily range): BP systolic 127–184; BP diastolic 65–98; PULSE 60–68; RESP 17–18; TEMP 36.2–36.8; O2SAT 93–100
[2020-09-20] MEDS: D5-NS 0.45% + KCL 20 mEq 20 MEQ/1,000 ML BAG 100 MEQ IV ×2 (00:49→11:37)
--- NOTE | 2020-09-20 05:00 | USCV_ITS ---
Fantasma Montalvo Age: 69 Gender: F : 1950 Exam Date: 09/20/2020 06:09 Ordering Phys: Barrett Maloney MD Technologist: Mei Morgan [place]am [place] [facility] [place]ication: AMS Risk Factors: Previous Vascular Surgery: Right Brachial BP: / Left Brachial BP: / Right Left Velocity (cm/s) Spectral Plaque Velocity (cm/s) Spectral Plaque Syst/Diast Broadening Syst/Diast Broadening 59.40/ 10.80 Prox CCA 79.00 / 11.70 62.80/ 16.90 Mid CCA 71.80 / 12.80 72.60/ 17.90 Distal CCA 54.70 / 14.50 56.00/ 15.00 Prox ICA 59.00 / 13.70 88.90/ 23.10 Mid ICA 55.80 / 14.50 71.10/ 27.30 Distal ICA 43.10 / 12.40 94.80 ECA 72.60 1.22 ICA/CCA 0.75 Antegrade Vertebral Antegrade 61.50/ 15.40 cm/s 22.80/ 4.90 cm/s Tri Subclavian Tri 118.4 136.0 0 0 CONCLUSIONS Right ICA stenosis <50%. Mild atheromatous plaque right carotid bulb/ICA. Left ICA stenosis <50%. Mild atheromatous plaque left carotid bulb/ICA. Normal antegrade Doppler flow noted in the right vertebral artery. Normal antegrade Doppler flow noted in the left vertebral artery. John Gramajo MD (Electronically Signed) Final Date: 20 September 2020 09:37 S
--- NOTE | 2020-09-20 05:00 | USCV_ITS ---
Fantasma Montalvo Age: 69 Gender: F : 1950 Exam Date: 09/20/2020 07:55 Ordering Phys: Barrett Maloney MD Technologist: Tisha Bruce [place] [facility] [place]: Altered mental status BP: 162 / 72 HR: 65 Rhythm: Sinus Technical Quality: Adequate MEASUREMENTS (Male / Female) Normal Values 2D ECHO LV Diastolic Diameter PLAX 4.8 cm 4.2 - 5.9 / 3.9 - 5.3 cm LV Systolic Diameter PLAX 3.1 cm LV Chamber Size 3.3 cm IVS Diastolic Thickness 1.3 cm 0.6 - 1.0 / 0.6 - 0.9 cm IVS Systolic Thickness 1.4 cm LVPW Diastolic Thickness 1.4 cm 0.6 - 1.0 / 0.6 - 0.9 cm LVPW Systolic Thickness 2.0 cm RV Chamber Size 2.5 cm LVOT Diameter 2.0 cm LV Ejection Fraction 2D Teich 64.3 % LV Ejection Fraction MOD 2C 58.5 % LV Ejection Fraction 2C AL 59.5 % LA Diameter 3.6 cm LA Width 3.1 cm LA Height 3.8 cm RA Width 2.4 cm RA Height 4.0 cm Aorta at Sinotubular Diameter 2.2 cm M-MODE LV Diastolic Diameter MM 5.0 cm 4.2 - 5.9 / 3.9 - 5.3 cm LV Systolic Diameter MM 3.3 cm LV Ejection Fraction MM Teich 60.9 % IVS Diastolic Thickness MM 1.0 cm 0.6 - 1.0 / 0.6 - 0.9 cm IVS Systolic Thickness MM 1.2 cm LVPW Diastolic Thickness MM 1.2 cm 0.6 - 1.0 / 0.6 - 0.9 cm LVPW Systolic Thickness MM 1.2 cm Aortic Annulus Diameter 2.2 cm LA Ao Ratio MM 1.7 MV E Point Septal Separation 0.8 cm DOPPLER AV Peak Velocity 219.3 cm/s LVOT Peak Velocity 113.3 cm/s AV Area Cont Eq vti 1.7 cm squared AV Area Cont Eq pk 1.7 cm squared MV Area PHT 3.3 cm squared Mitral E to A Ratio 1.1 MV E' Velocity 56.5 cm/s Mitral E to MV E' Ratio 13.2 Mitral E to LV E' Lateral Ratio 12.0 Mitral E to LV E' Septal Ratio 14.7 TR Peak Velocity 272.0 cm/s TR Peak Gradient 29.6 mmHg TV Peak E Velocity 63.0 cm/s Right Atrial Pressure 3.0 mmHg Pulmonary Artery Systolic Pressu 32.6 mmHg PV Peak Velocity 116.0 cm/s RV Acceleration Time 0.1 s RV Ejection Time 0.3 s RV AcT/ET 0.3 FINDINGS Left Ventricle Normal left ventricular cavity size. Increased left ventricular wall thickness. Moderate concentric left ventricular hypertrophy. Normal left ventricular systolic function. Left ventricular ejection fraction is estimated at 60 %. Grade II diastolic dysfunction, moderately elevated filling pressures. Right Ventricle Normal right ventricular size and systolic function, RVSP 35 mmHg. Right Atrium Normal right atrial size. Right atrial pressure estimated at 3 mm Hg. Left Atrium Moderately increased left atrial size. Mitral Valve Moderate to severe mitral annular calcification. Thickened mitral valve. No mitral valve stenosis. Trace mitral valve regurgitation. Aortic Valve Aortic valve not well visualized. Thickened and calcified aortic valve. Mild aortic valve stenosis, mean gradient 9.1 mmHg, HERNANDEZ 1.7 cm squared. Mild aortic valve regurgitation. Tricuspid Valve Structurally normal tricuspid valve. No tricuspid valve stenosis. Mild tricuspid valve regurgitation. Pulmonic Valve Pulmonic valve not well visualized. No pulmonary valve stenosis. No significant pulmonary valve regurgitation. Pericardium No pericardial effusion. Aorta Normal sized aortic root. CONCLUSIONS 1. Normal left ventricular cavity size. Moderate concentric left ventricular hypertrophy. Normal left ventricular systolic function. Left ventricular ejection fraction is estimated at 60 %. Grade II diastolic dysfunction, moderately elevated filling pressures. 2. Mild aortic valve stenosis, mean gradient 9.1 mmHg, HERNANDEZ 1.7 cm squared. Mild aortic valve regurgitation. 3. Mild pulmonary hypertension with pulmonary artery pressure estimated at 35 mm Hg. 4. There may not have been any significant change when compared to echo dated 01/05/20. Patricia Morelos MD (Electronically Signed) Final Date: 20 September 2020 21:53 S
--- NOTE | 2020-09-20 05:00 | US_ITS ---
WS: [id number] ULTRASOUND ABDOMEN LIMITED CLINICAL INFORMATION: ruq us gallbladder COMPARISON: None. FINDINGS: Liver Size: Normal. Craniocaudal length: 14.5 cm. Echogenicity: Coarse Surface nodularity: None. Mass (size and location): None. Hepatopedal flow in the main portal vein. Bile ducts Intrahepatic ducts: Normal. Common bile duct diameter: 0.3 cm. Gallbladder Cholelithiasis Gallstones: Present Gallbladder sludge: None. Gallbladder wall thickening: None. Pericholecystic fluid: None. Sonographic Mar sign: Absent. Pancreas Not well seen due to bowel gas Right kidney: Small nonobstructing renal parenchymal calculus 7 mm Hydronephrosis: None. Size: 9.4 cm x 5.1 cm x 3.2 cm. Abdominal aorta and IVC Visualized portions are normal. Ascites: None. US/US abdomen limited 18217 IMPRESSION: 1. Diffuse fatty infiltration liver. 2. Cholelithiasis. 3. Normal common bile duct. No gallbladder wall thickening or pericholecystic fluid. Negative Mar's sign. 4. No hydronephrosis in right kidney. Mild right renal cortical atrophy.
[2020-09-20 06:39] LABS: Glucose Point of Care 185 mg/dL (70-110)
[2020-09-20 06:43] LABS: Basophils # 0.1 10^3/uL (0.0-0.1); Basophils % 0.8 %; Eosinophils # 0.1 10^3/uL (0.0-0.8); Eosinophils % 1.7 %; Hematocrit 35.2 % (37.0-47.0); Hemoglobin 11.5 g/dL (11.5-15.3); Lymphocytes # 1.4 10^3/uL (0.8-4.8); Lymphocytes % 19.7 %; Mean Corpuscular HGB Conc 32.7 g/dL (30.0-36.0); Mean Corpuscular Hemoglobin 31.1 pg (28.0-34.0); Mean Corpuscular Volume 95.1 fL (81-99); Mean Platelet Volume 10.1 fL (7.4-10.4); Monocytes # 0.9 10^3/uL (0.2-0.9); Monocytes % 12.5 %; Neutrophils # 4.71 10^3/uL (1.8-7.7); Neutrophils % 64.7 %; Nucleated Red Blood Cells % 0 %; Platelet Count 204 10^3/cmm (130-400); Red Cell Distribution Width 15.5 % (12.1-15.1); White Blood Count 7.3 10^3/uL (4.0-10.0)
[2020-09-20 07:11] LABS: Alanine Aminotransferase 14 U/L (0-33); Albumin Level 3.4 g/dL (3.5-5.2); Alkaline Phosphatase 88 IU/L (35-105); Anion Gap 12.5 (5-19); Aspartate Amino Transferase 24 U/L (0-32); Blood Urea Nitrogen 28 mg/dL (8-23); Calcium 8.7 mg/dL (8.5-10.5); Carbon Dioxide 24 mmol/L (22-29); Chloride 105 mmol/L (98-107); Globulin 3.3 g/dL (1.3-4.6); Glomerular Filtration Rate 40.5 mL/min (90-130); Glucose 181 mg/dL (65-115); Magnesium 1.8 mg/dL (1.7-2.3); NT Pro B Type Natriuretic Pept 2580 pg/mL (0-125); Osmolality Calculated 296 mOsm/kg (285-295); Phosphorus 2.7 mg/dL (2.5-4.5); Potassium 3.5 mmol/L (3.5-5.1); Sodium 138 mmol/L (136-145); Total Bilirubin 1.3 mg/dL (0.15-1.2); Total Protein 6.7 g/dL (6.6-8.7)
[2020-09-20] MEDS: levothyroxine 50 mcg Tablet PO (08:49)
[2020-09-20] MEDS: apixaban 5 mg Tablet 2.5 MG PO ×2 (08:49→21:19)
[2020-09-20] MEDS: isosorbide mononitrate ER 30 mg Tablet PO ×2 (08:49→21:23)
[2020-09-20] MEDS: NIFEdipine ER (24 hr) 30 mg Tablet PO (08:49)
[2020-09-20] MEDS: pantoprazole DR 40 mg Tablet PO (08:49)
[2020-09-20] MEDS: potassium chloride ER 10 mEq Tablet PO (08:49)
[2020-09-20] MEDS: clopidogrel 75 mg Tablet PO (08:49)
[2020-09-20] MEDS: sertraline 50 mg Tablet 25 MG PO (08:51)
--- NOTE | 2020-09-20 10:37 | PC.CHAP ---
Pastoral Care Encounter/Spiritual Assessment Type of Contact [] Declined oracle programmer analyst visit [] Patient/Family/Request visit [] Outpatient visit [] Follow-up visit [] Physician referral [] Code/Alert [x] Routine visit [] Staff referral [] Actively dying [x] Patient sleeping [] Family support [] [] Out of room [] Palliative care [] [] Receiving care in room [] Pre-surgical visit [] Trauma [] Long length of stay [] ICU visit [] Other: Relational/Emotional Strength [] Patient feels connected with others/family/visitors/staff [] Distress [] Loneliness/isolation [] Abandonment Spirituality of Patient [] Person of Shira [] Attends Christian of their Shira [] Believes in Prayer [] Reads Bible or Adventist materials [] There are Spiritual issues to be addressed Motion Picture Camera Operator Interventions [] Prayer [] Active listening [] Non-anxious presence [] Spiritual/emotional support [] Crisis/trauma care [] Spiritual counseling [] Bereavement support [] Provided bereavement packet [] Provided Bible/devotional materials [] Provided toy/stuffed animal, coloring book to patient or family member [] Provided Communion [] Anointing/[place] [] Salvation [] Completed spiritual assessment [] Other: Impact on Illness or Injury [] Angry [] Fearful [] Anxious [] Often cries [] Exhaustion [] Unable to work [] Unable to attend mormonism [] Unable to walk/stand [] Unable to read [] Unable to drive [] Unable to eat/drink [] Unable to sleep [] Unable to be with family [] Patient intubated [] Other: Summary Time spent with patient
[2020-09-20 10:44] LABS: Glucose Point of Care 166 mg/dL (70-110)
[2020-09-20 16:21] LABS: Glucose Point of Care 168 mg/dL (70-110)
--- NOTE | 2020-09-20 16:52 | PM.PN ---
Subjective Subjective: Interval history: Patient was examined this morning, she sitting up into a chair, she does not remember what happened last night, she surprised that she was confused, last thing she remembers is that her caregiver had left and she was sitting in the couch, she does tell me that she recently had a UTI, has a history of recurrent UTIs, has not been feeling well recently, no fevers, chills, no cough, denies any strokelike symptoms, no chest pain, palpitations, no shortness of breath, normal exposure to COVID-19, currently feeling well, no abdominal pain, no diarrhea, does have lower pelvic pain, does have complaints of dysuria Vitals/I&O/Wt Last Vital Signs Temp 98.2 F 09/20/20 15:59 Pulse 65 09/20/20 15:59 Resp 17 09/20/20 15:59 BP 153/72 09/20/20 15:59 Pulse Ox 96 09/20/20 15:59 09/20/20 09/20/20 09/20/20 06:59 14:59 22:59 Intake Total 1200 / 1800 1240 / 1240 100 / 1340 Output Total 800 / 800 Balance 400 / 1000 1240 / 1240 100 / 1340 Weight last 48 hrs Weight 104.326 kg Physical Exam Const: COMMON NORMALS: no acute distress and patient oriented x3 HENMT: COMMON NORMALS: normocephalic HEAD & SCALP: normocephalic Neck/C-Spine: COMMON NORMALS: no JVD Resp: COMMON NORMALS: normal respiratory effort, No retractions, No use of accessory muscles and clear to auscultation bilaterally AUSCULTATION: clear to auscultation bilaterally Cardio: COMMON NORMALS: no JVD, regular rate, regular rhythm, S1 normal heart sound present and S2 normal heart sound present RATE: regular rate RHYTHM: regular rhythm HEART SOUNDS: S1 normal heart sound present and S2 normal heart sound present GI: COMMON NORMALS: Normal to inspection, nondistended, normoactive bowel sounds present, Soft to palpation, non-tender, No hepatosplenomegaly present, no masses and no bruits PALPATION: Yes Soft to palpation and Yes No hepatosplenomegaly present Extremity: COMMON NORMALS: capillary refill normal, no clubbing, cyanosis or edema, no calf tenderness and no pedal edema Neuro: COMMON NORMALS: patient oriented x3 Psych: COMMON NORMALS: mental status grossly normal Urinary Catheter Management^: José: Cath Placed During This Visit: yes Reason for Continuing Indwelling Catheter: Acute Urinary Retention or Obstruction Urinary Catheter Date of Insertion: 09/19/20 Urinary Catheter Time of Insertion: 14:37 Data : 09/20/20 06:29 09/20/20 06:29 Micro: Microbiology 09/19/20 21:33 Blood Culture - Preliminary Blood SPECIMEN COLLECTED 09/19/20 18:02 Blood Culture - Preliminary Blood SPECIMEN COLLECTED A&P Assessment and plan (1) AMS (altered mental status): -Chest x-ray no focal pneumonia -CT of the head no acute stroke or intracranial bleed -UA has no significant evidence of UTI, but patient has history of recurrent UTIs, ESBL E. coli UTIs -Urine toxicology unremarkable -EKG no acute ST-T wave changes -Creatinine is 1.3, TSH within normal limits, pro-Yong within normal limits -Alert oriented x3, follows all commands -Likely secondary to UTI Plan: -Admit to general medical floors -Neurochecks -Seizure precautions, aspiration precautions -Continue Primaxin given her history of recurrent UTIs, ESBL E. coli UTIs -Follow urine cultures, blood cultures -Stop fluids -Follow carotid ultrasound, cardiac echo, telemetry monitoring -Troponin baseline 58, 6-hour 56.95, no significant delta, no complaints of chest pain -BNP 2580, no shortness of breath complaints, not in exacerbation -Hold gabapentin, hold fentanyl -For now full code -Eliquis for DVT prophylaxis Status: Acute (2) FARRUKH (acute kidney injury): FARRUKH on CKD, continue IV hydration Status: Acute (3) Chronic kidney insufficiency: Status: Acute (4) Pacemaker: Status: Acute (5) Anticoagulation adequate with anticoagulant therapy: Continue Eliquis Status: Acute (6) Hypercholesterolemia: Status: Acute (7) HTN (hypertension): Status: Acute (8) CAD (coronary artery disease): Continue Plavix, Status: Acute Qualifiers: Associated angina: without angina Coronary Disease-Associated Artery/Lesion type: [place] artery [place] vs. transplanted heart: [place] heart Qualified Code(s): I25.10 - Atherosclerotic heart disease of [place] coronary artery without angina pectoris (9) Diabetes: Continue insulin sliding scale, Lantus Status: Acute Qualifiers: Diabetes mellitus type: type 2 (10) Aortic stenosis: Status: Acute Qualifiers: Cardiac valve disease etiology: nonrheumatic Qualified Code(s): I35.0 - Nonrheumatic aortic (valve) stenosis (11) Atrial fibrillation by electrocardiogram: Status: Acute (12) Grade II diastolic dysfunction: Hold Bumex Status: Acute (13) Rhabdomyolysis: CK 442, will continue to monitor Status: Acute Attestations Medical Necessity Statement*: Patient requires hospitalization inpatient, greater than 2 minutes, for altered mental status secondary to UTI Coding Level of Care Code Acute [employer] for [facility] Fwd Diagnoses AMS (altered mental status) R41.82 FARRUKH (acute kidney injury) N17.9 Chronic kidney insufficiency N18.9 Pacemaker Z95.0 Anticoagulation adequate with anticoagulant therapy Z79.01 Hypercholesterolemia E78.00 HTN (hypertension) I10 CAD (coronary artery disease) I25.10 Associated angina: without angina Coronary Disease-Associated Artery/Lesion type: [place] artery [place] vs. transplanted heart: [place] heart Diabetes E11.9 Diabetes mellitus type: type 2 Aortic stenosis I35.0 Cardiac valve disease etiology: nonrheumatic Atrial fibrillation by electrocardiogram I48.91 Grade II diastolic dysfunction I51.9 Rhabdomyolysis M62.82
[2020-09-20 20:50] LABS: Glucose Point of Care 200 mg/dL (70-110)
[2020-09-20] MEDS: atorvastatin 40 mg Tablet 80 MG PO (21:22)
[2020-09-20] MEDS: insulin glargine 100 units/1 mL 12 UNIT SUBCUT (21:25)
[2020-09-21] VITALS (8 sets, daily range): BP systolic 147–157; BP diastolic 67–78; PULSE 64–86; RESP 17–18; TEMP 36.4–36.8; O2SAT 95–98
[2020-09-21 05:04] LABS: Basophils # 0.1 10^3/uL (0.0-0.1); Basophils % 0.6 %; Eosinophils # 0.2 10^3/uL (0.0-0.8); Eosinophils % 2.1 %; Hematocrit 32.5 % (37.0-47.0); Hemoglobin 10.6 g/dL (11.5-15.3); Lymphocytes # 1.2 10^3/uL (0.8-4.8); Lymphocytes % 14.6 %; Mean Corpuscular HGB Conc 32.6 g/dL (30.0-36.0); Monocytes # 0.8 10^3/uL (0.2-0.9); Monocytes % 9.8 %; Neutrophils # 5.91 10^3/uL (1.8-7.7); Neutrophils % 72.4 %; Nucleated Red Blood Cells % 0 %; Platelet Count 180 10^3/cmm (130-400); Red Blood Count 3.42 10^6/uL (4.1-5.3); Red Cell Distribution Width 15.5 % (12.1-15.1); White Blood Count 8.2 10^3/uL (4.0-10.0)
[2020-09-21 05:19] LABS: Alanine Aminotransferase 13 U/L (0-33); Albumin Level 3.3 g/dL (3.5-5.2); Alkaline Phosphatase 85 IU/L (35-105); Anion Gap 11.2 (5-19); Aspartate Amino Transferase 19 U/L (0-32); Blood Urea Nitrogen 30 mg/dL (8-23); Calcium 8.7 mg/dL (8.5-10.5); Carbon Dioxide 24 mmol/L (22-29); Chloride 108 mmol/L (98-107); Creatine Phosphokinase 163 U/L (26-192); Globulin 2.9 g/dL (1.3-4.6); Glomerular Filtration Rate 34.3 mL/min (90-130); Glucose 162 mg/dL (65-115); Magnesium 1.8 mg/dL (1.7-2.3); Osmolality Calculated 298 mOsm/kg (285-295); Phosphorus 2.7 mg/dL (2.5-4.5); Potassium 4.2 mmol/L (3.5-5.1); Sodium 139 mmol/L (136-145); Total Bilirubin 0.9 mg/dL (0.15-1.2); Total Protein 6.2 g/dL (6.6-8.7)
[2020-09-21 06:35] LABS: Glucose Point of Care 144 mg/dL (70-110)
[2020-09-21] MEDS: pantoprazole DR 40 mg Tablet PO (08:34)
[2020-09-21] MEDS: NIFEdipine ER (24 hr) 30 mg Tablet PO (08:34)
[2020-09-21] MEDS: levothyroxine 50 mcg Tablet PO (08:34)
[2020-09-21] MEDS: potassium chloride ER 10 mEq Tablet PO (08:34)
[2020-09-21] MEDS: apixaban 5 mg Tablet 2.5 MG PO (08:34)
[2020-09-21] MEDS: isosorbide mononitrate ER 30 mg Tablet PO (08:35)
[2020-09-21] MEDS: clopidogrel 75 mg Tablet PO (08:35)
[2020-09-21] MEDS: sertraline 50 mg Tablet 25 MG PO (08:35)
--- NOTE | 2020-09-21 09:51 | PC.NUTR ---
NUTRITION WEIGHT ASSESSMENT: Ht. 59 inches. Wt.230 pounds. BMI of 46.5 kg/m2 indicates Morbid Obesity.
--- NOTE | 2020-09-21 10:32 | PM.DCS ---
Discharge Providers Date of Admission: 09/20/20 17:07 Date of Discharge: September 21, 2020 Attending Provider at Admission: Barrett Maloney MD Attending Provider at Discharge: Barrett Maloney MD Primary Care Provider: Betsy Nuno DO Diagnoses at Discharge Discharge Diagnosis (1) AMS (altered mental status): Status: Acute (2) FARRUKH (acute kidney injury): Status: Acute (3) Chronic kidney insufficiency: Status: Acute (4) Pacemaker: Status: Acute (5) Anticoagulation adequate with anticoagulant therapy: Status: Acute (6) Hypercholesterolemia: Status: Acute (7) HTN (hypertension): Status: Acute (8) CAD (coronary artery disease): Status: Acute Qualifiers: Associated angina: without angina Coronary Disease-Associated Artery/Lesion type: [place] artery [place] vs. transplanted heart: [place] heart Qualified Code(s): I25.10 - Atherosclerotic heart disease of [place] coronary artery without angina pectoris (9) Diabetes: Status: Acute Qualifiers: Diabetes mellitus type: type 2 (10) Aortic stenosis: Status: Acute Qualifiers: Cardiac valve disease etiology: nonrheumatic Qualified Code(s): I35.0 - Nonrheumatic aortic (valve) stenosis (11) Atrial fibrillation by electrocardiogram: Status: Acute (12) Grade II diastolic dysfunction: Status: Acute (13) Rhabdomyolysis: Status: Acute Reason for Visit Reason for Visit: GENERAL WEAKNESS Hospital Course Hospital Course Fantasma Montalvo is a 69 year old female with a past medical history of CAD status post elective first diagonal and RCA, history of contrast-induced nephropathy, 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 Patient was admitted to [facility] for altered status, secondary to UTI, has a history of recurrent UTIs, ESBL E. coli UTI, was managed with Primaxin as inpatient, clinically improved, remained afebrile, normotensive, mentation significantly improved back to baseline. Patient will be discharged on 5 remaining days of Levaquin, follow-up with primary care provider as outpatient for follow-up urine culture Patient also had rhabdomyolysis and FARRUKH on admission, improved with IV fluids. Creatinine on discharge was 1.5, advised to drink electrolyte balance fluids, recheck CMP with primary care provider in 1 week Patient's echocardiogram showed moderate LVH, grade 2 diastolic dysfunction, mild aortic valve stenosis, mild pulmonary hypertension, I will have patient follow-up with cardiology outpatient Patient does take fentanyl 50 mcg patch every 72 hours for pain, her patch was removed as a possible etiology behind her altered mental status, however I did not find a significant improvement of her mentation after the patch was removed by ER staff. Her mentation significantly improved with antibiotic therapy. Nonetheless I will have patient follow-up with primary care provider as outpatient for consideration of reduction of fentanyl dose. Physical Exam Const: COMMON NORMALS: no acute distress and patient oriented x3 HENMT: COMMON NORMALS: normocephalic HEAD & SCALP: normocephalic Neck/C-Spine: COMMON NORMALS: no JVD Resp: COMMON NORMALS: normal respiratory effort, No retractions, No use of accessory muscles and clear to auscultation bilaterally AUSCULTATION: clear to auscultation bilaterally Cardio: COMMON NORMALS: no JVD, regular rate, regular rhythm, S1 normal heart sound present and S2 normal heart sound present RATE: regular rate RHYTHM: regular rhythm HEART SOUNDS: S1 normal heart sound present and S2 normal heart sound present GI: COMMON NORMALS: Normal to inspection, nondistended, normoactive bowel sounds present, Soft to palpation, non-tender, No hepatosplenomegaly present, no masses and no bruits PALPATION: Yes Soft to palpation and Yes No hepatosplenomegaly present Extremity: COMMON NORMALS: capillary refill normal, no clubbing, cyanosis or edema, no calf tenderness and no pedal edema Neuro: COMMON NORMALS: patient oriented x3 Psych: COMMON NORMALS: mental status grossly normal Urinary Catheter Management^: José: Cath Placed During This Visit: yes Reason for Continuing Indwelling Catheter: Acute Urinary Retention or Obstruction Urinary Catheter Date of Insertion: 09/19/20 Urinary Catheter Time of Insertion: 14:37 Discharge Data Data Completed and Pending: Completed Studies During Hospitalization Category Date Time Status CT head wo con* [id number] 0450 Stat Cat Scan 09/19/20 11:58 Completed XR chest 1V jenna ble [id number] Stat Exams 09/19/20 11:54 Completed CV carotid duplex BI* [id number] Routine Ultrasound 09/20/20 05:00 Completed CV echo complete* [id number] Routine Ultrasound 09/20/20 05:00 Completed US abdomen limite d [id number] Routine Ultrasound 09/20/20 05:00 Completed Pending at discharge Category Date Time Status Blood Culture Rou brendon Lab 09/19/20 21:33 Results Blood Culture Sta t Lab 09/19/20 17:54 Results Complete Blood Co unt w/Auto AM LABS Lab 09/22/20 04:00 Ordered Comprehensive Met abolic Panel AM LA BS Lab 09/22/20 04:00 Ordered Creatine Phosphok inase AM LABS Lab 09/22/20 04:00 Ordered Creatine Phosphok inase AM LABS Lab 09/23/20 04:00 Ordered Magnesium AM LABS Lab 09/22/20 04:00 Ordered Phosphorus AM LAB S Lab 09/22/20 04:00 Ordered Urine Culture Sta t Lab 09/21/20 10:10 Received Labs from last 24 hours 09/21/20 09/21/20 09/21/20 06:30 04:45 04:45 WBC 8.2 RBC 3.42 L Hgb 10.6 L Hct 32.5 L MCV 95.0 MCH 31.0 MCHC 32.6 RDW 15.5 H Plt Count 180 MPV 10.0 Neut % (Auto) 72.4 Lymph % (Auto) 14.6 [place] % (Auto) 9.8 Eos % (Auto) 2.1 Baso % (Auto) 0.6 Neut # (Auto) 5.91 Lymph # (Auto) 1.2 [place] # (Auto) 0.8 Eos # (Auto) 0.2 Baso # (Auto) 0.1 Nucleated RBC % (a uto) 0 Nucleated RBCs # 0.0 Sodium 139 Potassium 4.2 Chloride 108 H Carbon Dioxide 24 Anion Gap 11.2 BUN 30 H Creatinine 1.5 H GFR Calculation 34.3 L Glucose 162 H POC Glucose 144 H Calculated Osmolal ity 298 H Calcium 8.7 Phosphorus 2.7 Magnesium 1.8 Total Bilirubin 0.9 AST 19 ALT 13 Alkaline Phosphata se 85 Creatine Kinase 163 Total Protein 6.2 L Albumin 3.3 L Globulin 2.9 09/20/20 09/20/20 09/20/20 20:48 16:17 10:42 WBC RBC Hgb Hct MCV MCH MCHC RDW Plt Count MPV Neut % (Auto) Lymph % (Auto) [place] % (Auto) Eos % (Auto) Baso % (Auto) Neut # (Auto) Lymph # (Auto) [place] # (Auto) Eos # (Auto) Baso # (Auto) Nucleated RBC % (a uto) Nucleated RBCs # Sodium Potassium Chloride Carbon Dioxide Anion Gap BUN Creatinine GFR Calculation Glucose POC Glucose 200 H 168 H 166 H Calculated Osmolal ity Calcium Phosphorus Magnesium Total Bilirubin AST ALT Alkaline Phosphata se Creatine Kinase Total Protein Albumin Globulin Vitals: Last Vital Signs Temp 98.3 F 09/21/20 07:47 Pulse 66 09/21/20 07:47 Resp 17 09/21/20 07:47 BP 157/78 09/21/20 07:47 Pulse Ox 95 09/21/20 07:47 Discharge Plan Discharge Patient Disposition: Home Condition: Stable Prescriptions: Continued glipizide 5 mg tablet 5 mg PO DAILY@08 RF: 0 insulin glargine 100 unit/mL (3 mL) insulin pen 12 unit SUBCUT BEDTIME@20 RF: 0 sennosides-docusate sodium 8.6-50 mg tablet 1 tab PO DAILY PRN (Reason: Constipation) RF: 0 insulin aspart U-100 [Novolog Flexpen U-100 Insulin] 100 unit/mL (3 mL) Insulin Pen See Rx Instructions .ROUTE .COMPLEX RF: 0 isosorbide mononitrate 30 mg tablet extended release 24 hr 30 mg PO BID@08,20 RF: 0 nifedipine 30 mg tablet extended release 30 mg PO DAILY@08 RF: 0 clopidogrel 75 mg tablet 75 mg PO DAILY@08 RF: 0 levothyroxine 50 mcg tablet 50 mcg PO DAILY@08 RF: 0 sertraline 25 mg tablet 25 mg PO DAILY@08 RF: 0 gabapentin 100 mg capsule 100 mg PO BEDTIME@20 RF: 0 rosuvastatin 20 mg tablet 20 mg PO BEDTIME@20 RF: 0 Dexilant 60 mg capsule,biphase delayed releas 60 mg PO DAILY@08 RF: 0 Eliquis 5 mg tablet 2.5 mg PO BID@08,20 RF: 0 nitroglycerin [Nitrostat] 0.4 mg Tablet, Sublingual 0.4 mg SUBLINGUAL Q5M PRN (Reason: Chest Pain) RF: 0 fentanyl 50 mcg/hr patch 72 hour 50 mcg topical Q72H Qty: 10 RF: 0 ondansetron HCl [Zofran] 4 mg Tablet 4 mg PO BID PRN (Reason: Nausea) Qty: 30 RF: 0 acetaminophen 325 mg capsule 325 mg PO QID PRN (Reason: fever or mild pain) Qty: 30 RF: 0 potassium chloride 10 mEq tablet extended release 10 meq PO DAILY@08 RF: 0 Held bumetanide 1 mg tablet 1 mg PO DAILY@08 RF: 0 Hold Instructions: Resume on 09/25/20. resume on friday Discharge Orders: Discharge Order (Routine); Ordered 09/21/20 Ordered By: Barrett Maloney Referrals: Emily Rome MD [Physician] - 1 week Betsy Nuno DO [Primary Care Provider] - Discharge Diet: Cardiac Discharge Activity: Resume usual activity Activity Restrictions/Additional Instructions: -I would follow-up with primary care provider for discussion with reduction of dose of fentanyl patch -Continue Levaquin for 5 remaining days -Follow-up with primary care provider in 1 week for recheck CMP, follow urine culture -Hold Bumex until Friday -Try to drink plenty of electrolyte balance fluids Discharge Attestations Time Spent in Discharge Care*: less than 30 min Status at Discharge: Cognitive status at discharge: cognitively intact, Behavioral status at discharge: cooperative, Quality Metrics Clinical Quality Measures During this hospital stay, did patient experience: None Coding Level of Care Code Acute [facility] note Diagnoses AMS (altered mental status) R41.82 FARRUKH (acute kidney injury) N17.9 Chronic kidney insufficiency N18.9 Pacemaker Z95.0 Anticoagulation adequate with anticoagulant therapy Z79.01 Hypercholesterolemia E78.00 HTN (hypertension) I10 CAD (coronary artery disease) I25.10 Associated angina: without angina Coronary Disease-Associated Artery/Lesion type: [place] artery [place] vs. transplanted heart: [place] heart Diabetes E11.9 Diabetes mellitus type: type 2 Aortic stenosis I35.0 Cardiac valve disease etiology: nonrheumatic Atrial fibrillation by electrocardiogram I48.91 Grade II diastolic dysfunction I51.9 Rhabdomyolysis M62.82
[2020-09-21 10:41] LABS: Glucose Point of Care 177 mg/dL (70-110)
--- NOTE | 2020-09-21 10:57 | PC.CHAP ---
Pastoral Care Encounter/Spiritual Assessment Type of Contact [] Declined balloon seller visit [] Patient/Family/Request visit [] Outpatient visit [] Follow-up visit [] Physician referral [] Code/Alert [x] Routine visit [] Staff referral [] Actively dying [] Patient sleeping [] Family support [] [] Out of room [] Palliative care [] [x] Receiving care in room [] Pre-surgical visit [] Trauma [] Long length of stay [] ICU visit [] Other: Relational/Emotional Strength [x] Patient feels connected with others/family/visitors/staff [] Distress [] Loneliness/isolation [] Abandonment Spirituality of Patient [x] Person of Shira [] Attends Holiness of their Shira [x] Believes in Prayer [] Reads Bible or Yarsanism materials [] There are Spiritual issues to be addressed Hardness Inspector Interventions [x] Prayer [x] Active listening [x] Non-anxious presence [x] Spiritual/emotional support [] Crisis/trauma care [x] Spiritual counseling [] Bereavement support [] Provided bereavement packet [] Provided Bible/devotional materials [] Provided toy/stuffed animal, coloring book to patient or family member [] Provided Communion [] Anointing/[place] [] Salvation [x] Completed spiritual assessment [] Other: Impact on Illness or Injury [] Angry [] Fearful [] Anxious [] Often cries [] Exhaustion [] Unable to work [] Unable to attend buddhism [] Unable to walk/stand [] Unable to read [] Unable to drive [] Unable to eat/drink [] Unable to sleep [] Unable to be with family [] Patient intubated [] Other: Summary General health is good, going home today, has a good attiitude Time spent with patient 10 mins
== END 2020-09-21 12:57 | disposition home health service (06) | DRG 683 ==
LOC: ER 13:56 → MEDSURG 15:15
PROVIDERS: Admitting Provider Family Medicine; Emergency Provider Emergency Medicine; PCP Family Medicine; Visit Provider Family Medicine
DX: N17.9 Acute kidney failure, unspecified (principal); N39.0 Urinary tract infection, site not specified; I13.0 Hypertensive heart and chronic kidney disease with heart failure and stage 1 through stage 4 chronic kidney disease, or unspecified chronic kidney disease; I50.30 Unspecified diastolic (congestive) heart failure; M62.82 Rhabdomyolysis; I25.10 Atherosclerotic heart disease of native coronary artery without angina pectoris; I48.91 Unspecified atrial fibrillation; N18.9 Chronic kidney disease, unspecified; E11.22 Type 2 diabetes mellitus with diabetic chronic kidney disease; Z79.4 Long term (current) use of insulin; K21.9 Gastro-esophageal reflux disease without esophagitis; E78.00 Pure hypercholesterolemia, unspecified; Z95.0 Presence of cardiac pacemaker; Z87.440 Personal history of urinary (tract) infections; W07.XXXA Fall from chair, initial encounter; I35.0 Nonrheumatic aortic (valve) stenosis; E78.5 Hyperlipidemia, unspecified; Z87.891 Personal history of nicotine dependence; Z79.01 Long term (current) use of anticoagulants; Z79.02 Long term (current) use of antithrombotics/antiplatelets; I27.20 Pulmonary hypertension, unspecified
CPT/HCPCS: 36415; 36416; 51702; 70450; 71045; 76705; 80053; 80306; 81001; 82550; 82962; 83605; 83735; 83880; 84100; 84145; 84443; 84484; 85025; 85610; 85651; 85730; 86140; 87040; 87077; 87086; 87186; 93005; 93306; 93880; 94664; 96365; 96366; 96367; 96372; 96375; 97110; 97116; 97161; 97166; 97530; 99285; G0378; J0743; J1815 ×2; J2405; J7040

== ENCOUNTER 2020-12-06 14:26 | Emergency (ER) | payer MEDICARE, MEDICAID, SELFPAY ==
[2020-12-06 14:37] VITALS: BP 174/75; PULSE 79; RESP 20; TEMP 37.2; O2SAT 96; BMI 38.3
--- NOTE | 2020-12-06 14:37 | XR_ITS ---
WS: [id number] Portable AP upright chest, 12/06/2020 Clinical Data: chest pain Comparison: Portable chest, 09/19/2020. Findings: No nodules, masses or effusions are seen. The heart is normal. The pulmonary vascularity is not increased. No pneumonia or pneumothorax is seen. The permanent pacemaker remains in good positio n. The aortic arch and descending aorta show mild tortuosity. XR/XR chest 1V portable [id number] Impression: Atherosclerosis and permanent pacemaker.
--- NOTE | 2020-12-06 14:38 | ECG_ITS ---
[facility] Test Date: 2020-12-06 Pat Name: Fantasma Montalvo Department: Room: Gender: Female Men'S Designer: : 1950 Requested By: Jony Rg Order Number: [id number] Maribell MD: Emily Rome M.D. Measurements Intervals [place] Rate: 78 P: MN: QRS: 34 QRSD: 133 T: 4 QT: 387 QTc: 442 Interpretive Statements UNCERTAIN REGULAR RHYTHM RIGHT BUNDLE BRANCH BLOCK [120+ ms QRS DURATION, UPRIGHT V1, 40+ ms S IN I/aVL/V4/V5/V6] ANTERIOR MYOCARDIAL INFARCTION [40+ ms Q WAVE AND/OR ST/T ABNORMALITY IN V3/V4], OF INDETERMINATE AGE Compared to ECG 09/19/2020 18:04:35 Myocardial infarct finding now present Sinus rhythm no longer present First degree AV block no longer present Electronically Signed On 12-06-2020 20:05:58 CDT by Emily Rome M.D. [id number]
--- NOTE | 2020-12-06 14:40 | W.ED.CHESTPA ---
Documented by User: Jony Cuello DO 12/11/20 09:29 HPI - Chest Pain General: Chief Complaint: Chest Pain Stated Complaint: CP, PACEMAKER MALFUNCTION Time Seen by Provider: 12/06/20 14:27 History of Present Illness: HPI narrative: 69-year-old female presents emergency room with complaints of chest pain. She is complaining of left upper chest pain in the area of her pacemaker. States the pain began while she was resting and radiates down her right arm into her jaw and her ear. She did take 4 nitroglycerin at the group home prior to the arrival of EMS with no relief of the pain. He has a history of atrial fibrillation and is on apixaban she is also on clopidogrel. She was nauseous with both episode with no diaphoresis. She has a known history of coronary artery disease. She had angioplasty of the first diagonal with stent placement in the right coronary in August 2019. Post procedure patient had contrast-induced nephropathy with a creatinine elevated up to 6. She is also previously admitted for a NSTEMI which was managed medically. After that she had a stress test that showed inferior and inferior lateral FL with some sathya-infarct ischemia. Her metoprolol was held because of pauses. Due to that she underwent pacemaker placement. MD complaint: chest pain Pertinent past history: other (History of atrial fibrillation and pacemaker placement) Timing of current episode: episodic Onset: during rest Pain location: left chest Pain radiation: left arm, neck and jaw/teeth Severity: moderate Quality: aching Relieving factors: nothing Exacerbating factors: palpation Associated symptoms: Deny abdominal pain, diaphoresis, dyspnea, fever(s), leg edema, nausea, palpitations, sense of impending doom, syncope or vomiting Treatment prior to arrival: none Review of Systems Const: Denies: fever(s) or diaphoresis ENMT: Denies: throat pain, ear or mastoid pain, nasal discharge or nasal congestion Card: Denies: palpitations or syncope Resp: Denies: dyspnea GI: Denies: abdominal pain, nausea or vomiting : Denies: flank pain, difficulty voiding, dysuria, urinary frequency or urinary urgency Skin/Breast: Denies: rash or pruritus PFSH ED PFSH: Medical History Anticoagulation adequate with anticoagulant therapy Aortic stenosis Atrial fibrillation by electrocardiogram CAD (coronary artery disease) CHF (congestive heart failure) Dental caries Diabetes DJD (degenerative joint disease) Gastroenteritis GERD (gastroesophageal reflux disease) HTN (hypertension) Hypercholesterolemia Hyperlipidemia Pacemaker Recurrent UTI Long history of recurrent UTIs suspicious for CHRONIC CYSTITIS. ESBL E. coli documented in 2019. Rhabdomyolysis Urinary incontinence Surgical History H/O colonoscopy yrs ago History of cardiac catheterization History of hernia repair History of hip surgery History of hysterectomy History of knee surgery History of sinus surgery History of tonsillectomy History of umbilical hernia repair Status post placement of cardiac pacemaker Family History Father , in his 60's Lung disease Mother , 99 Hypertension Other Diabetes Stroke Denies family history of CAD (coronary artery disease) Clotting disorder Dementia Chronic kidney disease (CKD) Anesthesia complication Bleeding disorder Social History Smoking and tobacco status: never smoked Quit status (tobacco): has quit using tobacco Former quit date comment: Smoking in her 20s Alcohol intake: never Caregiver/support person: Yes (Home health services Friday) Lives independently: Yes Housing: House Marital status: Current occupational status: retired History of recent travel: No Current gender identity: Female Physical Exam Const: COMMON NORMALS: no acute distress GENERAL APPEARANCE: cooperative and comfortable ORIENTATION/CONSCIOUSNESS: Yes awake, Yes oriented to person, Yes oriented to place and Yes oriented to time HENMT: COMMON NORMALS: normocephalic, atraumatic, hearing grossly normal bilaterally and external ears normal HEAD & SCALP: normocephalic and atraumatic EXTERNAL EAR: Yes external ears normal Neck/C-Spine: COMMON NORMALS: no JVD Resp: COMMON NORMALS: normal respiratory effort, No retractions, No use of accessory muscles and clear to auscultation bilaterally AUSCULTATION: clear to auscultation bilaterally Cardio: COMMON NORMALS: no JVD, regular rate, regular rhythm and No murmurs present (Cardio) RATE: regular rate RHYTHM: regular rhythm GI: COMMON NORMALS: Soft to palpation and No hepatosplenomegaly present AUSCULTATION: Yes normoactive bowel sounds PALPATION: Yes Soft to palpation, No Tenderness to palpation present (GI), No Guarding due to palpation present (GI) and Yes No hepatosplenomegaly present Extremity: COMMON NORMALS: normal to inspection, capillary refill normal, no clubbing, cyanosis or edema, no calf tenderness and no pedal edema Neuro: SENSORIUM/ORIENTATION: Yes oriented to person, Yes oriented to place and Yes oriented to time Skin: COMMON NORMALS: no rashes or lesions noted GENERAL SKIN EXAM: no rashes or lesions noted Course Vital Signs: Vital signs: Vital Signs Temperature 99.0 F 12/06/20 14:37 Pulse Rate 81 12/06/20 16:40 Respiratory Rate 25 H 12/06/20 16:40 Blood Pressure 185/82 12/06/20 16:40 Pulse Oximetry 97 12/06/20 16:40 MDM - Chest Pain MDM Narrative: Medical decision making narrative: Care turned over to Dr. Null at change of shift see his notes for final diagnosis and disposition Lab Data: Labs: Lab Results 12/06/20 12/06/20 12/06/20 Range/Units 15:40 15:40 15:40 WBC 8.5 (4.0-10.0) 10^3/ uL RBC 3.58 L (4.1-5.3) 10^6/u L Hgb 11.2 L (11.5-15.3) g/dL Hct 33.3 L (37.0-47.0) % MCV 93.0 (81-99) fL MCH 31.3 (28.0-34.0) pg MCHC 33.6 (30.0-36.0) g/dL RDW 15.3 H (12.1-15.1) % Plt Count 197 (130-400) 10^3/c mm MPV 9.6 (7.4-10.4) fL Neut % (Auto) 62.8 % Lymph % (Auto) 24.0 % [place] % (Auto) 9.8 % Eos % (Auto) 2.1 % Baso % (Auto) 0.6 % Neut # (Auto) 5.30 (1.8-7.7) 10^3/u L Lymph # (Auto) 2.0 (0.8-4.8) 10^3/u L [place] # (Auto) 0.8 (0.2-0.9) 10^3/u L Eos # (Auto) 0.2 (0.0-0.8) 10^3/u L Baso # (Auto) 0.1 (0.0-0.1) 10^3/u L Nucleated RBC % (a uto) 0 % Nucleated RBCs # 0.0 /100WBC Sodium 138 (136-145) mmol/L Potassium 4.2 (3.5-5.1) mmol/L Chloride 100 (98-107) mmol/L Carbon Dioxide 27 (22-29) mmol/L Anion Gap 15.2 (5-19) BUN 56 H (8-23) mg/dL Creatinine 1.3 H (0.5-0.9) mg/dL GFR Calculation 40.5 L (90-130) mL/min Glucose 171 H (65-115) mg/dL Calculated Osmolal ity 306 H (285-295) mOsm/k g Calcium 8.4 L (8.5-10.5) mg/dL Total Bilirubin 0.4 (0.15-1.2) mg/dL AST 14 (0-32) U/L ALT 14 (0-33) U/L Alkaline Phosphata se 145 H (35-105) IU/L Troponin T Baselin e 32 H (0-10) ng/L Troponin T 120 Min [place] (0-10) ng/L Delta Troponin T (0-10) ABS# Total Protein 6.6 (6.6-8.7) g/dL Albumin 3.9 (3.5-5.2) g/dL Globulin 2.7 (1.3-4.6) g/dL Lipase 34 (13-60) U/L // Range/Units 17:33 WBC (4.0-10.0) 10^3/ uL RBC (4.1-5.3) 10^6/u L Hgb (11.5-15.3) g/dL Hct (37.0-47.0) % MCV (81-99) fL MCH (28.0-34.0) pg MCHC (30.0-36.0) g/dL RDW (12.1-15.1) % Plt Count (130-400) 10^3/c mm MPV (7.4-10.4) fL Neut % (Auto) % Lymph % (Auto) % [place] % (Auto) % Eos % (Auto) % Baso % (Auto) % Neut # (Auto) (1.8-7.7) 10^3/u L Lymph # (Auto) (0.8-4.8) 10^3/u L [place] # (Auto) (0.2-0.9) 10^3/u L Eos # (Auto) (0.0-0.8) 10^3/u L Baso # (Auto) (0.0-0.1) 10^3/u L Nucleated RBC % (a uto) % Nucleated RBCs # /100WBC Sodium (136-145) mmol/L Potassium (3.5-5.1) mmol/L Chloride (98-107) mmol/L Carbon Dioxide (22-29) mmol/L Anion Gap (5-19) BUN (8-23) mg/dL Creatinine (0.5-0.9) mg/dL GFR Calculation (90-130) mL/min Glucose (65-115) mg/dL Calculated Osmolal ity (285-295) mOsm/k g Calcium (8.5-10.5) mg/dL Total Bilirubin (0.15-1.2) mg/dL AST (0-32) U/L ALT (0-33) U/L Alkaline Phosphata se (35-105) IU/L Troponin T Baselin e (0-10) ng/L Troponin T 120 Min [place] 32.47 H (0-10) ng/L Delta Troponin T 0.47 (0-10) ABS# Total Protein (6.6-8.7) g/dL Albumin (3.5-5.2) g/dL Globulin (1.3-4.6) g/dL Lipase (13-60) U/L Discharge Plan Discharge Patient Disposition: Home Clinical Impression: Chest pain Qualifiers: Chest pain type: unspecified Qualified Code(s): R07.9 - Chest pain, unspecified Condition: Stable Prescriptions: New hydrocodone-acetaminophen 5-325 mg tablet 1 tab PO Q6H PRN (Reason: pain) Qty: 14 RF: 0 No Action insulin glargine 100 unit/mL (3 mL) insulin pen 12 unit SUBCUT BEDTIME@20 RF: 0 sennosides-docusate sodium 8.6-50 mg tablet 1 tab PO DAILY PRN (Reason: Constipation) RF: 0 glipizide 5 mg tablet 5 mg PO DAILY@08 RF: 0 insulin aspart U-100 [Novolog Flexpen U-100 Insulin] 100 unit/mL (3 mL) Insulin Pen See Rx Instructions .ROUTE .COMPLEX RF: 0 isosorbide mononitrate 30 mg tablet extended release 24 hr 30 mg PO BID@08,20 RF: 0 nifedipine 30 mg tablet extended release 30 mg PO DAILY@08 RF: 0 levothyroxine 50 mcg tablet 50 mcg PO DAILY@08 RF: 0 bumetanide 1 mg tablet 1 mg PO DAILY@08 RF: 0 Hold Instructions: Resume on 09/25/20. resume on friday nitroglycerin [Nitrostat] 0.4 mg Tablet, Sublingual 0.4 mg SUBLINGUAL Q5M PRN (Reason: Chest Pain) RF: 0 Dexilant 60 mg capsule,biphase delayed releas 60 mg PO DAILY@08 RF: 0 sertraline 25 mg tablet 25 mg PO DAILY@08 RF: 0 Eliquis 5 mg tablet 2.5 mg PO BID@08,20 RF: 0 clopidogrel 75 mg tablet 75 mg PO DAILY@08 RF: 0 gabapentin 100 mg capsule 100 mg PO BEDTIME@20 RF: 0 rosuvastatin 20 mg tablet 20 mg PO BEDTIME@20 RF: 0 fentanyl 50 mcg/hr patch 72 hour 50 mcg topical Q72H Qty: 10 RF: 0 ondansetron HCl [Zofran] 4 mg Tablet 4 mg PO BID PRN (Reason: Nausea) Qty: 30 RF: 0 acetaminophen 325 mg capsule 325 mg PO QID PRN (Reason: fever or mild pain) Qty: 30 RF: 0 potassium chloride 10 mEq tablet extended release 10 meq PO DAILY@08 RF: 0 Discharge Orders: Discharge ED (Routine); Ordered 12/06/20 Ordered By: Jannie Null Referrals: Betsy Nuno DO [Primary Care Provider] - 1-3 days Discharge Diet: Advance as tolerated Discharge Activity: Resume usual activity Patient Instructions: Chest Pain (ED), Opioid Safety Coding Level of Care Code ED Clerk Funeral Detail for Chg Fwd Exam Comprehensive Documented by User: Nelson Chapin MD 12/06/20 17:42 HPI - Chest Pain General: Chief Complaint: Chest Pain Stated Complaint: CP, PACEMAKER MALFUNCTION Time Seen by Provider: 12/06/20 14:27 PFSH ED PFSH: Medical History Anticoagulation adequate with anticoagulant therapy Aortic stenosis Atrial fibrillation by electrocardiogram CAD (coronary artery disease) CHF (congestive heart failure) Dental caries Diabetes DJD (degenerative joint disease) Gastroenteritis GERD (gastroesophageal reflux disease) HTN (hypertension) Hypercholesterolemia Hyperlipidemia Pacemaker Recurrent UTI Long history of recurrent UTIs suspicious for CHRONIC CYSTITIS. ESBL E. coli documented in 2019. Rhabdomyolysis Urinary incontinence Surgical History H/O colonoscopy yrs ago History of cardiac catheterization History of hernia repair History of hip surgery History of hysterectomy History of knee surgery History of sinus surgery History of tonsillectomy History of umbilical hernia repair Status post placement of cardiac pacemaker Family History Father , in his 60's Lung disease Mother , 99 Hypertension Other Diabetes Stroke Denies family history of CAD (coronary artery disease) Clotting disorder Dementia Chronic kidney disease (CKD) Anesthesia complication Bleeding disorder Social History Smoking and tobacco status: never smoked Quit status (tobacco): has quit using tobacco Former quit date comment: Smoking in her 20s Alcohol intake: never Caregiver/support person: Yes (Home health services Friday) Lives independently: Yes Housing: House Marital status: Current occupational status: retired History of recent travel: No Current gender identity: Female Course Vital Signs: Vital signs: Vital Signs Temperature 99.0 F 12/06/20 14:37 Pulse Rate 81 12/06/20 16:40 Respiratory Rate 25 H 12/06/20 16:40 Blood Pressure 185/82 12/06/20 16:40 Pulse Oximetry 97 06/23/21 16:40 MDM - Chest Pain Lab Data: Labs: Lab Results 12/06/20 12/06/20 12/06/20 Range/Units 15:40 15:40 15:40 WBC 8.5 (4.0-10.0) 10^3/ uL RBC 3.58 L (4.1-5.3) 10^6/u L Hgb 11.2 L (11.5-15.3) g/dL Hct 33.3 L (37.0-47.0) % MCV 93.0 (81-99) fL MCH 31.3 (28.0-34.0) pg MCHC 33.6 (30.0-36.0) g/dL RDW 15.3 H (12.1-15.1) % Plt Count 197 (130-400) 10^3/c mm MPV 9.6 (7.4-10.4) fL Neut % (Auto) 62.8 % Lymph % (Auto) 24.0 % [place] % (Auto) 9.8 % Eos % (Auto) 2.1 % Baso % (Auto) 0.6 % Neut # (Auto) 5.30 (1.8-7.7) 10^3/u L Lymph # (Auto) 2.0 (0.8-4.8) 10^3/u L [place] # (Auto) 0.8 (0.2-0.9) 10^3/u L Eos # (Auto) 0.2 (0.0-0.8) 10^3/u L Baso # (Auto) 0.1 (0.0-0.1) 10^3/u L Nucleated RBC % (a uto) 0 % Nucleated RBCs # 0.0 /100WBC Sodium 138 (136-145) mmol/L Potassium 4.2 (3.5-5.1) mmol/L Chloride 100 (98-107) mmol/L Carbon Dioxide 27 (22-29) mmol/L Anion Gap 15.2 (5-19) BUN 56 H (8-23) mg/dL Creatinine 1.3 H (0.5-0.9) mg/dL GFR Calculation 40.5 L (90-130) mL/min Glucose 171 H (65-115) mg/dL Calculated Osmolal ity 306 H (285-295) mOsm/k g Calcium 8.4 L (8.5-10.5) mg/dL Total Bilirubin 0.4 (0.15-1.2) mg/dL AST 14 (0-32) U/L ALT 14 (0-33) U/L Alkaline Phosphata se 145 H (35-105) IU/L Troponin T Baselin e 32 H (0-10) ng/L Troponin T 120 Min [place] (0-10) ng/L Delta Troponin T (0-10) ABS# Total Protein 6.6 (6.6-8.7) g/dL Albumin 3.9 (3.5-5.2) g/dL Globulin 2.7 (1.3-4.6) g/dL Lipase 34 (13-60) U/L // Range/Units 17:33 WBC (4.0-10.0) 10^3/ uL RBC (4.1-5.3) 10^6/u L Hgb (11.5-15.3) g/dL Hct (37.0-47.0) % MCV (81-99) fL MCH (28.0-34.0) pg MCHC (30.0-36.0) g/dL RDW (12.1-15.1) % Plt Count (130-400) 10^3/c mm MPV (7.4-10.4) fL Neut % (Auto) % Lymph % (Auto) % [place] % (Auto) % Eos % (Auto) % Baso % (Auto) % Neut # (Auto) (1.8-7.7) 10^3/u L Lymph # (Auto) (0.8-4.8) 10^3/u L [place] # (Auto) (0.2-0.9) 10^3/u L Eos # (Auto) (0.0-0.8) 10^3/u L Baso # (Auto) (0.0-0.1) 10^3/u L Nucleated RBC % (a uto) % Nucleated RBCs # /100WBC Sodium (136-145) mmol/L Potassium (3.5-5.1) mmol/L Chloride (98-107) mmol/L Carbon Dioxide (22-29) mmol/L Anion Gap (5-19) BUN (8-23) mg/dL Creatinine (0.5-0.9) mg/dL GFR Calculation (90-130) mL/min Glucose (65-115) mg/dL Calculated Osmolal ity (285-295) mOsm/k g Calcium (8.5-10.5) mg/dL Total Bilirubin (0.15-1.2) mg/dL AST (0-32) U/L ALT (0-33) U/L Alkaline Phosphata se (35-105) IU/L Troponin T Baselin e (0-10) ng/L Troponin T 120 Min [place] 32.47 H (0-10) ng/L Delta Troponin T 0.47 (0-10) ABS# Total Protein (6.6-8.7) g/dL Albumin (3.5-5.2) g/dL Globulin (1.3-4.6) g/dL Lipase (13-60) U/L Discharge Plan Discharge Patient Disposition: Home Clinical Impression: Chest pain Qualifiers: Chest pain type: unspecified Qualified Code(s): R07.9 - Chest pain, unspecified Condition: Stable Prescriptions: New hydrocodone-acetaminophen 5-325 mg tablet 1 tab PO Q6H PRN (Reason: pain) Qty: 14 RF: 0 No Action insulin glargine 100 unit/mL (3 mL) insulin pen 12 unit SUBCUT BEDTIME@20 RF: 0 sennosides-docusate sodium 8.6-50 mg tablet 1 tab PO DAILY PRN (Reason: Constipation) RF: 0 glipizide 5 mg tablet 5 mg PO DAILY@08 RF: 0 insulin aspart U-100 [Novolog Flexpen U-100 Insulin] 100 unit/mL (3 mL) Insulin Pen See Rx Instructions .ROUTE .COMPLEX RF: 0 isosorbide mononitrate 30 mg tablet extended release 24 hr 30 mg PO BID@08,20 RF: 0 nifedipine 30 mg tablet extended release 30 mg PO DAILY@08 RF: 0 levothyroxine 50 mcg tablet 50 mcg PO DAILY@08 RF: 0 bumetanide 1 mg tablet 1 mg PO DAILY@08 RF: 0 Hold Instructions: Resume on 09/25/20. resume on friday nitroglycerin [Nitrostat] 0.4 mg Tablet, Sublingual 0.4 mg SUBLINGUAL Q5M PRN (Reason: Chest Pain) RF: 0 Dexilant 60 mg capsule,biphase delayed releas 60 mg PO DAILY@08 RF: 0 sertraline 25 mg tablet 25 mg PO DAILY@08 RF: 0 Eliquis 5 mg tablet 2.5 mg PO BID@08,20 RF: 0 clopidogrel 75 mg tablet 75 mg PO DAILY@08 RF: 0 gabapentin 100 mg capsule 100 mg PO BEDTIME@20 RF: 0 rosuvastatin 20 mg tablet 20 mg PO BEDTIME@20 RF: 0 fentanyl 50 mcg/hr patch 72 hour 50 mcg topical Q72H Qty: 10 RF: 0 ondansetron HCl [Zofran] 4 mg Tablet 4 mg PO BID PRN (Reason: Nausea) Qty: 30 RF: 0 acetaminophen 325 mg capsule 325 mg PO QID PRN (Reason: fever or mild pain) Qty: 30 RF: 0 potassium chloride 10 mEq tablet extended release 10 meq PO DAILY@08 RF: 0 Discharge Orders: Discharge ED (Routine); Ordered 12/06/20 Ordered By: Jannie Null Referrals: Betsy Nuno DO [Primary Care Provider] - 1-3 days Discharge Diet: Advance as tolerated Discharge Activity: Resume usual activity Patient Instructions: Chest Pain (ED), Opioid Safety Coding Level of Care Code ED Clerk Funeral Detail for Chg Fwd Exam Comprehensive Documented by User: Jannie Null MD 12/06/20 19:14 HPI - Chest Pain General: Chief Complaint: Chest Pain Stated Complaint: CP, PACEMAKER MALFUNCTION Time Seen by Provider: 12/06/20 14:27 [facility] ED PFSH: Medical History Anticoagulation adequate with anticoagulant therapy Aortic stenosis Atrial fibrillation by electrocardiogram CAD (coronary artery disease) CHF (congestive heart failure) Dental caries Diabetes DJD (degenerative joint disease) Gastroenteritis GERD (gastroesophageal reflux disease) HTN (hypertension) Hypercholesterolemia Hyperlipidemia Pacemaker Recurrent UTI Long history of recurrent UTIs suspicious for CHRONIC CYSTITIS. ESBL E. coli documented in 2019. Rhabdomyolysis Urinary incontinence Surgical History H/O colonoscopy yrs ago History of cardiac catheterization History of hernia repair History of hip surgery History of hysterectomy History of knee surgery History of sinus surgery History of tonsillectomy History of umbilical hernia repair Status post placement of cardiac pacemaker Family History Father , in his 60's Lung disease Mother , 99 Hypertension Other Diabetes Stroke Denies family history of CAD (coronary artery disease) Clotting disorder Dementia Chronic kidney disease (CKD) Anesthesia complication Bleeding disorder Social History Smoking and tobacco status: never smoked Quit status (tobacco): has quit using tobacco Former quit date comment: Smoking in her 20s Alcohol intake: never Caregiver/support person: Yes (Home health services Friday) Lives independently: Yes Housing: House Marital status: Current occupational status: retired History of recent travel: No Current gender identity: Female Course Vital Signs: Vital signs: Vital Signs Temperature 99.0 F 12/06/20 14:37 Pulse Rate 81 12/06/20 16:40 Respiratory Rate 25 H 12/06/20 16:40 Blood Pressure 185/82 12/06/20 16:40 Pulse Oximetry 97 12/06/20 16:40 MDM - Chest Pain MDM Narrative: Medical decision making narrative: Patient presents here with chest pains atypical in nature. She is point tender over left chest reproduces her pain. Patient's repeat troponin here is negative and she has no signs of aortic dissection or pulmonary embolism. She is stable for discharge is to follow-up with PCP and return if worsening. Lab Data: Labs: Lab Results 12/06/20 12/06/20 12/06/20 Range/Units 15:40 15:40 15:40 WBC 8.5 (4.0-10.0) 10^3/ uL RBC 3.58 L (4.1-5.3) 10^6/u L Hgb 11.2 L (11.5-15.3) g/dL Hct 33.3 L (37.0-47.0) % MCV 93.0 (81-99) fL MCH 31.3 (28.0-34.0) pg MCHC 33.6 (30.0-36.0) g/dL RDW 15.3 H (12.1-15.1) % Plt Count 197 (130-400) 10^3/c mm MPV 9.6 (7.4-10.4) fL Neut % (Auto) 62.8 % Lymph % (Auto) 24.0 % [place] % (Auto) 9.8 % Eos % (Auto) 2.1 % Baso % (Auto) 0.6 % Neut # (Auto) 5.30 (1.8-7.7) 10^3/u L Lymph # (Auto) 2.0 (0.8-4.8) 10^3/u L [place] # (Auto) 0.8 (0.2-0.9) 10^3/u L Eos # (Auto) 0.2 (0.0-0.8) 10^3/u L Baso # (Auto) 0.1 (0.0-0.1) 10^3/u L Nucleated RBC % (a uto) 0 % Nucleated RBCs # 0.0 /100WBC Sodium 138 (136-145) mmol/L Potassium 4.2 (3.5-5.1) mmol/L Chloride 100 (98-107) mmol/L Carbon Dioxide 27 (22-29) mmol/L Anion Gap 15.2 (5-19) BUN 56 H (8-23) mg/dL Creatinine 1.3 H (0.5-0.9) mg/dL GFR Calculation 40.5 L (90-130) mL/min Glucose 171 H (65-115) mg/dL Calculated Osmolal ity 306 H (285-295) mOsm/k g Calcium 8.4 L (8.5-10.5) mg/dL Total Bilirubin 0.4 (0.15-1.2) mg/dL AST 14 (0-32) U/L ALT 14 (0-33) U/L Alkaline Phosphata se 145 H (35-105) IU/L Troponin T Baselin e 32 H (0-10) ng/L Troponin T 120 Min [place] (0-10) ng/L Delta Troponin T (0-10) ABS# Total Protein 6.6 (6.6-8.7) g/dL Albumin 3.9 (3.5-5.2) g/dL Globulin 2.7 (1.3-4.6) g/dL Lipase 34 (13-60) U/L 12/06/ Range/Units 17:33 WBC (4.0-10.0) 10^3/ uL RBC (4.1-5.3) 10^6/u L Hgb (11.5-15.3) g/dL Hct (37.0-47.0) % MCV (81-99) fL MCH (28.0-34.0) pg MCHC (30.0-36.0) g/dL RDW (12.1-15.1) % Plt Count (130-400) 10^3/c mm MPV (7.4-10.4) fL Neut % (Auto) % Lymph % (Auto) % [place] % (Auto) % Eos % (Auto) % Baso % (Auto) % Neut # (Auto) (1.8-7.7) 10^3/u L Lymph # (Auto) (0.8-4.8) 10^3/u L [place] # (Auto) (0.2-0.9) 10^3/u L Eos # (Auto) (0.0-0.8) 10^3/u L Baso # (Auto) (0.0-0.1) 10^3/u L Nucleated RBC % (a uto) % Nucleated RBCs # /100WBC Sodium (136-145) mmol/L Potassium (3.5-5.1) mmol/L Chloride (98-107) mmol/L Carbon Dioxide (22-29) mmol/L Anion Gap (5-19) BUN (8-23) mg/dL Creatinine (0.5-0.9) mg/dL GFR Calculation (90-130) mL/min Glucose (65-115) mg/dL Calculated Osmolal ity (285-295) mOsm/k g Calcium (8.5-10.5) mg/dL Total Bilirubin (0.15-1.2) mg/dL AST (0-32) U/L ALT (0-33) U/L Alkaline Phosphata se (35-105) IU/L Troponin T Baselin e (0-10) ng/L Troponin T 120 Min [place] 32.47 H (0-10) ng/L Delta Troponin T 0.47 (0-10) ABS# Total Protein (6.6-8.7) g/dL Albumin (3.5-5.2) g/dL Globulin (1.3-4.6) g/dL Lipase (13-60) U/L Discharge Plan Discharge Patient Disposition: Home Clinical Impression: Chest pain Qualifiers: Chest pain type: unspecified Qualified Code(s): R07.9 - Chest pain, unspecified Condition: Stable Prescriptions: New hydrocodone-acetaminophen 5-325 mg tablet 1 tab PO Q6H PRN (Reason: pain) Qty: 14 RF: 0 No Action insulin glargine 100 unit/mL (3 mL) insulin pen 12 unit SUBCUT BEDTIME@20 RF: 0 sennosides-docusate sodium 8.6-50 mg tablet 1 tab PO DAILY PRN (Reason: Constipation) RF: 0 glipizide 5 mg tablet 5 mg PO DAILY@08 RF: 0 insulin aspart U-100 [Novolog Flexpen U-100 Insulin] 100 unit/mL (3 mL) Insulin Pen See Rx Instructions .ROUTE .COMPLEX RF: 0 isosorbide mononitrate 30 mg tablet extended release 24 hr 30 mg PO BID@08,20 RF: 0 nifedipine 30 mg tablet extended release 30 mg PO DAILY@08 RF: 0 levothyroxine 50 mcg tablet 50 mcg PO DAILY@08 RF: 0 bumetanide 1 mg tablet 1 mg PO DAILY@08 RF: 0 Hold Instructions: Resume on 09/25/20. resume on friday nitroglycerin [Nitrostat] 0.4 mg Tablet, Sublingual 0.4 mg SUBLINGUAL Q5M PRN (Reason: Chest Pain) RF: 0 Dexilant 60 mg capsule,biphase delayed releas 60 mg PO DAILY@08 RF: 0 sertraline 25 mg tablet 25 mg PO DAILY@08 RF: 0 Eliquis 5 mg tablet 2.5 mg PO BID@08,20 RF: 0 clopidogrel 75 mg tablet 75 mg PO DAILY@08 RF: 0 gabapentin 100 mg capsule 100 mg PO BEDTIME@20 RF: 0 rosuvastatin 20 mg tablet 20 mg PO BEDTIME@20 RF: 0 fentanyl 50 mcg/hr patch 72 hour 50 mcg topical Q72H Qty: 10 RF: 0 ondansetron HCl [Zofran] 4 mg Tablet 4 mg PO BID PRN (Reason: Nausea) Qty: 30 RF: 0 acetaminophen 325 mg capsule 325 mg PO QID PRN (Reason: fever or mild pain) Qty: 30 RF: 0 potassium chloride 10 mEq tablet extended release 10 meq PO DAILY@08 RF: 0 Discharge Orders: Discharge ED (Routine); Ordered 12/06/20 Ordered By: Jannie Null Referrals: Betsy Nuno DO [Primary Care Provider] - 1-3 days Discharge Diet: Advance as tolerated Discharge Activity: Resume usual activity Patient Instructions: Chest Pain (ED), Opioid Safety Coding Level of Care Code ED Clerk Funeral Detail for [place] Fwd Exam Comprehensive
[2020-12-06 14:48] VITALS: O2SAT 96
[2020-12-06] MEDS: nitroglycerin 1 gm/inch oint Pkt 1 INCH TOPICAL (15:44)
[2020-12-06 15:46] VITALS: PULSE 74; RESP 17; O2SAT 98
[2020-12-06 15:56] LABS: Basophils # 0.1 10^3/uL (0.0-0.1); Basophils % 0.6 %; Eosinophils # 0.2 10^3/uL (0.0-0.8); Eosinophils % 2.1 %; Hematocrit 33.3 % (37.0-47.0); Hemoglobin 11.2 g/dL (11.5-15.3); Mean Corpuscular HGB Conc 33.6 g/dL (30.0-36.0); Mean Corpuscular Hemoglobin 31.3 pg (28.0-34.0); Mean Platelet Volume 9.6 fL (7.4-10.4); Monocytes # 0.8 10^3/uL (0.2-0.9); Monocytes % 9.8 %; Neutrophils % 62.8 %; Nucleated Red Blood Cells % 0 %; Platelet Count 197 10^3/cmm (130-400); Red Blood Count 3.58 10^6/uL (4.1-5.3); Red Cell Distribution Width 15.3 % (12.1-15.1); White Blood Count 8.5 10^3/uL (4.0-10.0)
[2020-12-06 16:14] LABS: Troponin(5th) Baseline 32 ng/L (0-10)
[2020-12-06 16:25] LABS: Alanine Aminotransferase 14 U/L (0-33); Albumin Level 3.9 g/dL (3.5-5.2); Alkaline Phosphatase 145 IU/L (35-105); Aspartate Amino Transferase 14 U/L (0-32); Blood Urea Nitrogen 56 mg/dL (8-23); Calcium 8.4 mg/dL (8.5-10.5); Carbon Dioxide 27 mmol/L (22-29); Chloride 100 mmol/L (98-107); Globulin 2.7 g/dL (1.3-4.6); Glomerular Filtration Rate 40.5 mL/min (90-130); Glucose 171 mg/dL (65-115); Lipase 34 U/L (13-60); Osmolality Calculated 306 mOsm/kg (285-295); Sodium 138 mmol/L (136-145); Total Bilirubin 0.4 mg/dL (0.15-1.2); Total Protein 6.6 g/dL (6.6-8.7)
[2020-12-06 16:35] LABS: Anion Gap 15.2 (5-19); Potassium 4.2 mmol/L (3.5-5.1)
--- NOTE | 2020-12-06 16:38 | ECG_ITS ---
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 Measurements Intervals [place] Rate: 78 P: 91 LA: 289 QRS: 21 QRSD: 134 T: -5 QT: 403 QTc: 459 Interpretive Statements SINUS RHYTHM WITH FIRST DEGREE AV BLOCK RIGHT BUNDLE BRANCH BLOCK [120+ ms QRS DURATION, UPRIGHT V1, 40+ ms S IN I/aVL/V4/V5/V6] Compared to ECG 12/06/2020 14:46:52 First degree AV block now present Myocardial infarct finding no longer present Electronically Signed On 12-06-2020 20:13:46 CDT by Emily Rome M.D. [id number]
[2020-12-06 16:40] VITALS: BP 185/82; PULSE 81; RESP 25; O2SAT 97
--- NOTE | 2020-12-06 16:42 | PC.NURSE ---
pt and pt's brother voicing concerns with her return of left chest pain around her pacemaker . ED provider notified. and orders received for pain control
[2020-12-06] MEDS: ketorolac 30 mg/mL INJ 15 MG IVP (17:28)
[2020-12-06 18:06] LABS: Troponin 5 2HR 32.47 ng/L (0-10); Troponin 5 2HR Delta 0.47 ABS# (0-10)
== END 2020-12-06 19:00 | disposition home or self-care (01) ==
PROVIDERS: Family Medicine; Emergency Provider Emergency Medicine; PCP Family Medicine
DX: R07.9 Chest pain, unspecified (principal); Z79.01 Long term (current) use of anticoagulants; Z79.4 Long term (current) use of insulin; I25.10 Atherosclerotic heart disease of native coronary artery without angina pectoris; I11.0 Hypertensive heart disease with heart failure; I50.9 Heart failure, unspecified; E11.9 Type 2 diabetes mellitus without complications; E78.5 Hyperlipidemia, unspecified; Z95.0 Presence of cardiac pacemaker; Z87.891 Personal history of nicotine dependence
CPT/HCPCS: 36415; 71045; 80053; 83690; 84484; 85025; 93005; 96374; 99284; J1885

== ENCOUNTER 2021-02-08 09:39 | Emergency (ER) | payer MEDICARE, MEDICAID, SELFPAY ==
[2021-02-08 09:40] VITALS: BP 141/58; PULSE 68; RESP 18; TEMP 37.1; O2SAT 96; BMI 40.4
[2021-02-08 09:47] VITALS: BP 141/58; PULSE 69; RESP 18; TEMP 37.1; O2SAT 97
[2021-02-08 10:00] VITALS: PULSE 69
--- NOTE | 2021-02-08 10:00 | ECG_ITS ---
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1950 Requested By: Jordy Moreno Order Number: [id number] Reading MD: URBANO SIFUENTES Measurements Intervals [place] Rate: 69 P: ME: QRS: 42 QRSD: 130 T: -5 QT: 412 QTc: 443 Interpretive Statements Artifact cannot interpret rhythm RIGHT BUNDLE BRANCH BLOCK [120+ ms QRS DURATION, UPRIGHT V1, 40+ ms S IN I/aVL/V4/V5/V6] ANTERIOR MYOCARDIAL INFARCTION , PROBABLY OLD [40+ ms Q WAVE AND/OR ST/T ABNORMALITY IN V3/V4] Compared to ECG 12/06/2020 16:26:32 Myocardial infarct finding now present Sinus rhythm no longer present First degree AV block no longer present Electronically Signed On 02-08-2021 22:20:19 CDT by URBANO SIFUENTES [id number]
--- NOTE | 2021-02-08 10:00 | XR_ITS ---
WS: [id number] Exam: XR chest 1V portable [id number] Date/Time of Exam: 02/08/2021 10:00 AM Reason For Exam: cp Comparison 12/06/2020. The lungs are fully expanded and clear. Normal cardiomediastinal silhouette. No pleural effusions. A cardiac pacer superimposes the left chest. XR/XR chest 1V portable [id number] IMPRESSION: 1. No acute cardiopulmonary finding.
--- NOTE | 2021-02-08 10:03 | ED_ITS ---
HPI - General Adult General: Chief complaint: General Medical Stated complaint: CHEST PAIN AFTER MOVING FURNITURE Time Seen by Provider: 02/08/21 09:42 History of Present Illness: HPI narrative: Patient is a 70-year-old female comes to the ED via EMS with chest pain. Patient has a past medical history of diabetes, morbid obesity, hypercholesterolemia, hypertension, CAD, anemia, HF and A. fib. Patient says she has had this chest pain before about a month ago that occurred similarly after being active and moving some furniture. Today she says she was trying to move this heavy chair in her room and started developing pain on the left side of chest that radiated to the back. She also described having some left arm numbness and tingling. She sat down to rest and symptoms did not improve. She rates her chest pain currently an 8 out of 10. Associated symptoms: Reports chest pain; Deny dyspnea, headache(s), nausea, rash, palpitations or vomiting Review of Systems Const: Denies: fever(s), chills or fatigue Eyes: Denies: change in vision or eye discomfort ENMT: Denies: throat pain, odynophagia, nasal discharge or nasal congestion Card: Reports: chest pain; Denies: palpitations, edema, swelling of feet/ankles, dyspnea on exertion or orthopnea Resp: Denies: dyspnea, productive cough or non-productive cough GI: Denies: abdominal pain, nausea, vomiting, diarrhea, constipation or hematochezia : Denies: flank pain, dysuria or hematuria Musc: Reports: back pain; Denies: neck pain or extremity swelling Skin/Breast: Denies: rash or new lesions Neuro: Denies: headache(s), numbness in extremities or weakness in extremities PFSH ED PFSH: Medical History Aortic stenosis Atrial fibrillation by electrocardiogram CAD (coronary artery disease) CHF (congestive heart failure) Dental caries Diabetes DJD (degenerative joint disease) Gastroenteritis GERD (gastroesophageal reflux disease) HTN (hypertension) Hypercholesterolemia Hyperlipidemia Recurrent UTI Long history of recurrent UTIs suspicious for CHRONIC CYSTITIS. ESBL E. coli documented in 2019. Rhabdomyolysis Urinary incontinence Surgical History H/O colonoscopy yrs ago History of cardiac catheterization History of hernia repair History of hip surgery History of hysterectomy History of knee surgery History of sinus surgery History of tonsillectomy History of umbilical hernia repair Status post placement of cardiac pacemaker Family History Father , in his 60's Lung disease Mother , 99 Hypertension Other Diabetes Stroke Denies family history of CAD (coronary artery disease) Clotting disorder Dementia Chronic kidney disease (CKD) Anesthesia complication Bleeding disorder Social History Smoking and tobacco status: former smoker Quit status (tobacco): has quit using tobacco Former quit date comment: Smoking in her 20s Alcohol intake: never Caregiver/support person: Yes (Home health services Friday) Lives independently: Yes Housing: House Marital status: Current occupational status: retired History of recent travel: No Current gender identity: Female Physical Exam Const: COMMON NORMALS: no acute distress, patient oriented x3 and alert GENERAL APPEARANCE: cooperative and comfortable NUTRITIONAL APPEARANCE: obese HENMT: COMMON NORMALS: normocephalic HEAD & SCALP: normocephalic MOUTH: Normal oral and palatal mucosa present THROAT: posterior oropharynx normal and uvula midline Neck/C-Spine: COMMON NORMALS: supple GENERAL: Yes normal visual inspection Chest: CHEST: Yes tenderness pectoral muscle on the left diffusely Resp: COMMON NORMALS: normal respiratory effort, No retractions, No use of accessory muscles and clear to auscultation bilaterally AUSCULTATION: clear to auscultation bilaterally Cardio: COMMON NORMALS: regular rate, regular rhythm, S1 normal heart sound present, S2 normal heart sound present, No gallops present (Cardio), No clicks present (Cardio), No murmurs present (Cardio) and Peripheral pulses 2+ throughout RATE: regular rate RHYTHM: regular rhythm HEART SOUNDS: S1 normal heart sound present and S2 normal heart sound present PERIPHERAL PULSES: Peripheral pulses 2+ throughout GI: COMMON NORMALS: Normal to inspection, nondistended, normoactive bowel sounds present, Soft to palpation, non-tender and no masses PALPATION: Yes Soft to palpation : COMMON NORMALS: Yes no CVA tenderness BLADDER/KIDNEY EXAM: Yes no CVA tenderness Back/Pelvis: COMMON NORMALS: no CVA tenderness THORACIC SPINE/UPPER BACK: No thoracic spinal tenderness, Yes paraspinal muscle tenderness Thoracic paraspinal muscle tenderness: left Left thoracic paraspinal muscle tenderness: T5, T6 and T7 and Yes other soft tissue findings Other thoracic soft tissue findings laterality: left Left other thoracic soft tissue findings details: tenderness ( inferior to shoulder blade region) Extremity: COMMON NORMALS: normal to inspection Neuro: COMMON NORMALS: patient oriented x3 and moves all extremities SENSORIUM/ORIENTATION: Yes alert Skin: GENERAL SKIN EXAM: dry skin Course Vital Signs: Vital signs: Vital Signs Temperature 98.7 F 02/08/21 09:47 Pulse Rate 87 02/08/21 14:31 Respiratory Rate 18 02/08/21 14:31 Blood Pressure 152/74 02/08/21 14:31 Pulse Oximetry 94 02/08/21 14:31 MDM - General Adult MDM Narrative: Medical decision making narrative: Patient is a 70-year-old female comes to the ED with chest pain after moving some furniture. Chest pain located on left side of chest and it radiates to her left upper back. Patient had a similar episode 1 month ago and was seen here in the ED and cleared. Exam shows an obese nontoxic appearing 70-year-old female. She has palpable tenderness to her left pectoral muscle. She also has some soft tissue tenderness left side of her upper back just inferior to her shoulder blade. Vitals are stable. EKG showed no ST segment elevation or depression seen. CBC and CMP were unremarkable. Baseline troponin and 2-hour troponin negative for CT. Chest x-ray shows no acute findings. Patient was diagnosed on noncardiac chest pain and musculoskeletal chest pain. She was discharged home and told to follow-up with your PCP in 7 days for reevaluation. Return to ED precautions given. Patient understood agree with plan. Lab Data: Attestation: I reviewed the patient's lab results. Labs: Lab Results 02/08/21 02/08/21 02/08/21 Range/Units 10:24 10:24 10:24 WBC 10.0 (4.0-10.0) 10^3/ uL RBC 3.86 L (4.1-5.3) 10^6/u L Hgb 12.1 (11.5-15.3) g/dL Hct 36.4 L (37.0-47.0) % MCV 94.3 (81-99) fl MCH 31.3 (28.0-34.0) pg MCHC 33.2 (30.0-36.0) g/dL RDW 15.9 H (12.1-15.1) % Plt Count 211 (130-400) 10^3/c mm MPV 9.9 (7.4-10.4) fL Neut % (Auto) 68.2 % Lymph % (Auto) 19.6 % [place] % (Auto) 9.0 % Eos % (Auto) 2.0 % Baso % (Auto) 0.5 % Neut # (Auto) 6.84 (1.8-7.7) 10^3/u L Lymph # (Auto) 2.0 (0.8-4.8) 10^3/u L [place] # (Auto) 0.9 (0.2-0.9) 10^3/u L Eos # (Auto) 0.2 (0.0-0.8) 10^3/u L Baso # (Auto) 0.1 (0.0-0.1) 10^3/u L Nucleated RBC % (a uto) 0 % Nucleated RBCs # 0.0 /100WBC Sodium Cancelled Potassium Cancelled Chloride Cancelled Carbon Dioxide Cancelled Anion Gap Cancelled BUN Cancelled Creatinine Cancelled GFR Calculation Cancelled Glucose Cancelled Calculated Osmolal ity Cancelled Calcium Cancelled Total Bilirubin Cancelled AST Cancelled ALT Cancelled Alkaline Phosphata se Cancelled Troponin T Baselin e Cancelled Troponin T 120 Min [place] (0-10) ng/L Delta Troponin T (0-10) ABS# Total Protein Cancelled Albumin Cancelled Globulin Cancelled 02/08/21 02/08/21 02/08/21 Range/Units 11:25 11:25 13:26 WBC (4.0-10.0) 10^3/ uL RBC (4.1-5.3) 10^6/u L Hgb (11.5-15.3) g/dL Hct (37.0-47.0) % MCV (81-99) fl MCH (28.0-34.0) pg MCHC (30.0-36.0) g/dL RDW (12.1-15.1) % Plt Count (130-400) 10^3/c mm MPV (7.4-10.4) fL Neut % (Auto) % Lymph % (Auto) % [place] % (Auto) % Eos % (Auto) % Baso % (Auto) % Neut # (Auto) (1.8-7.7) 10^3/u L Lymph # (Auto) (0.8-4.8) 10^3/u L [place] # (Auto) (0.2-0.9) 10^3/u L Eos # (Auto) (0.0-0.8) 10^3/u L Baso # (Auto) (0.0-0.1) 10^3/u L Nucleated RBC % (a uto) % Nucleated RBCs # /100WBC Sodium 139 Potassium 4.7 Chloride 100 Carbon Dioxide 28 Anion Gap 15.7 BUN 53 H Creatinine 1.4 H GFR Calculation Not Reportable Glucose 155 H Calculated Osmolal ity 306 H Calcium 8.8 Total Bilirubin 0.5 AST 12 ALT 12 Alkaline Phosphata se 128 H Troponin T Baselin e 29 H Troponin T 120 Min [place] 28.39 H (0-10) ng/L Delta Troponin T -0.61 L (0-10) ABS# Total Protein 7.0 Albumin 4.0 Globulin 3.0 Imaging Data^: CXR: Attestation: I personally reviewed and interpreted this imaging study as follows: Radiologist's impression: [address] [address] XRay Report Signed Patient: Fantasma Montalvo Unit #: [id number] : 1950 Age/Sex: 70 / F ADM Date: 02/08/21 Loc: ER Room/Bed: Attending Dr: Ordering Provider/Ordering MD: Jordy Moreno Date of Service: 02/08/21 Procedure(s): XR chest 1V portable [id number] Accession Number(s): [id number] Report Number: [id number] WS: [id number] Exam: XR chest 1V portable [id number] Date/Time of Exam: 02/08/2021 10:00 AM Reason For Exam: cp Comparison 12/06/2020. The lungs are fully expanded and clear. Normal cardiomediastinal silhouette. No pleural effusions. A cardiac pacer superimposes the left chest. XR/XR chest 1V portable [id number] IMPRESSION: 1. No acute cardiopulmonary finding. Dictated By: Wild Helms DO Signed By: Wild Helms DO Signed Date/Time: 02/08/21 1016 DD/ 1016 EKG Data^: EKG 1: Attestation: I personally reviewed and interpreted this EKG as follows: EKG interpretation date: 02/08/21 Interpretation: Normal sinus rhythm, [address] segment elevation or depression seen. Computer generated interpretation: Chest X-Ray 02/08/21 10:00 IMPRESSION: 1. No acute cardiopulmonary finding. Discharge Plan Discharge Patient Disposition: Home Clinical Impression: Chest pain, musculoskeletal Condition: Stable Prescriptions: No Action insulin glargine 100 unit/mL (3 mL) insulin pen 12 unit SUBCUT BEDTIME@20 RF: 0 sennosides-docusate sodium 8.6-50 mg tablet 1 tab PO DAILY PRN (Reason: Constipation) RF: 0 ondansetron HCl [Zofran] 4 mg tablet 4 mg PO Q6H PRN (Reason: nausea and vomiting) Qty: 10 RF: 0 insulin aspart U-100 [Novolog Flexpen U-100 Insulin] 100 unit/mL (3 mL) Insulin Pen See Rx Instructions .ROUTE .COMPLEX RF: 0 isosorbide mononitrate 30 mg tablet extended release 24 hr 30 mg PO BID@08,20 RF: 0 nifedipine 30 mg tablet extended release 30 mg PO DAILY@08 RF: 0 levothyroxine 50 mcg tablet 50 mcg PO DAILY@08 RF: 0 bumetanide 1 mg tablet 2 mg PO DAILY@08 RF: 0 Hold Instructions: Resume on 09/25/20. resume on friday nitroglycerin [Nitrostat] 0.4 mg Tablet, Sublingual 0.4 mg SUBLINGUAL Q5M PRN (Reason: Chest Pain) RF: 0 Dexilant 60 mg capsule,biphase delayed releas 60 mg PO DAILY@08 RF: 0 sertraline 25 mg tablet 25 mg PO DAILY@08 RF: 0 Eliquis 5 mg tablet 2.5 mg PO BID@08,20 RF: 0 clopidogrel 75 mg tablet 75 mg PO DAILY@08 RF: 0 gabapentin 100 mg capsule 100 mg PO BEDTIME@20 RF: 0 rosuvastatin 20 mg tablet 20 mg PO BEDTIME@20 RF: 0 glipizide 10 mg tablet 10 mg PO BID RF: 0 fentanyl 50 mcg/hr patch 72 hour 50 mcg topical Q72H Qty: 10 RF: 0 acetaminophen 325 mg capsule 325 mg PO QID MDD SEE PHARMACY COMMENT PRN (Reason: fever or mild pain) Qty: 30 RF: 0 potassium chloride 10 mEq tablet extended release 10 meq PO DAILY@08 RF: 0 hydrocodone-acetaminophen 5-325 mg tablet 1 tab PO Q6H PRN (Reason: pain) Qty: 14 RF: 0 Discharge Orders: Discharge ED (Routine); Ordered 02/08/21 Ordered By: Jordy Moreno Referrals: Betsy Nuno DO [Primary Care Provider] - Discharge Diet: Regular Discharge Activity: Increase activity as tolerated Patient Instructions: Musculoskeletal Pain (ED), Noncardiac Chest Pain (ED) Activity Restrictions/Additional Instructions: Follow-up with medical provider as directed in 7 to 10 days for reevaluation. Continue taking your home medications as prescribed. Take Tylenol or any other of your previously prescribed pain meds as needed for any pain. Rest and limit activity for the next couple days to allow for your chest and back muscles to heal. You can apply cold pack on sore areas to help with symptoms as well. Return to the ER or your medical provider if condition worsens. Please read and understand discharge instructions. Thank you for choosing [facility] for your healthcare needs today. Sami garcia realize this is an emergency room and that we are providing you with a medical screening exam and this may not be complete and all inclusive of all the testing and or work up that you may need to determine your ailment or severity of your illness. It is very important that you follow up as instructed or that you return to the Emergency Department should you have concerns or if your condition changes or worsens in any way. Coding Level of Care Code ED Cattle Inspector for Kendall Fwolivia Exam Comprehensive
[2021-02-08 10:25] VITALS: RESP 17; O2SAT 98
[2021-02-08] MEDS: morphine 4 mg/mL SDV 1 mL 2 MG IVP (10:25)
[2021-02-08] MEDS: aspirin 81 mg Chew Tablet 324 MG PO (10:28)
[2021-02-08 10:30] LABS: Basophils # 0.1 10^3/uL (0.0-0.1); Basophils % 0.5 %; Eosinophils # 0.2 10^3/uL (0.0-0.8); Hematocrit 36.4 % (37.0-47.0); Hemoglobin 12.1 g/dL (11.5-15.3); Lymphocytes % 19.6 %; Mean Corpuscular HGB Conc 33.2 g/dL (30.0-36.0); Mean Corpuscular Hemoglobin 31.3 pg (28.0-34.0); Mean Corpuscular Volume 94.3 fl (81-99); Mean Platelet Volume 9.9 fL (7.4-10.4); Monocytes # 0.9 10^3/uL (0.2-0.9); Neutrophils # 6.84 10^3/uL (1.8-7.7); Neutrophils % 68.2 %; Nucleated Red Blood Cells % 0 %; Platelet Count 211 10^3/cmm (130-400); Red Blood Count 3.86 10^6/uL (4.1-5.3); Red Cell Distribution Width 15.9 % (12.1-15.1)
[2021-02-08 11:20] VITALS: BP 152/74; PULSE 87; RESP 18; O2SAT 94
[2021-02-08 11:54] LABS: Alanine Aminotransferase 12 U/L (0-33); Alkaline Phosphatase 128 IU/L (35-105); Anion Gap 15.7 (5-19); Aspartate Amino Transferase 12 U/L (0-32); Blood Urea Nitrogen 53 mg/dL (8-23); Calcium 8.8 mg/dL (8.5-10.5); Carbon Dioxide 28 mmol/L (22-29); Chloride 100 mmol/L (98-107); Glucose 155 mg/dL (65-115); Osmolality Calculated 306 mOsm/kg (285-295); Potassium 4.7 mmol/L (3.5-5.1); Sodium 139 mmol/L (136-145); Total Bilirubin 0.5 mg/dL (0.15-1.2)
[2021-02-08 11:57] LABS: Troponin(5th) Baseline 29 ng/L (0-10)
--- NOTE | 2021-02-08 12:00 | ECG_ITS ---
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1950 Requested By: Jordy Moreno Order Number: [id number] Reading MD: URBANO SIFUENTES Measurements Intervals [place] Rate: 64 P: 26 GA: 284 QRS: 34 QRSD: 134 T: -2 QT: 434 QTc: 450 Interpretive Statements SINUS RHYTHM WITH FIRST DEGREE AV BLOCK RIGHT BUNDLE BRANCH BLOCK [120+ ms QRS DURATION, UPRIGHT V1, 40+ ms S IN I/aVL/V4/V5/V6] ANTERIOR MYOCARDIAL INFARCTION , OF INDETERMINATE AGE [40+ ms Q WAVE AND/OR ST/T ABNORMALITY IN V3/V4] Compared to ECG 02/08/2021 10:09:18 First degree AV block now present Myocardial infarct finding still present Electronically Signed On 02-08-2021 22:22:16 CDT by URBANO SIFUENTES [id number]
[2021-02-08] MEDS: HYDROcodone-acetaminophen 5-325 mg Tablet 1 TAB PO (13:55)
[2021-02-08 13:57] LABS: Troponin 5 2HR 28.39 ng/L (0-10)
[2021-02-08 13:59] LABS: Troponin 5 2HR Delta -0.61 ABS# (0-10)
[2021-02-08 14:31] VITALS: BP 152/74; PULSE 87; RESP 18; O2SAT 94
== END 2021-02-08 14:32 | disposition home or self-care (01) ==
PROVIDERS: Emergency Provider Physician Assistant; PCP Family Medicine
DX: R07.89 Other chest pain (principal); Z79.4 Long term (current) use of insulin; Z79.01 Long term (current) use of anticoagulants; I25.10 Atherosclerotic heart disease of native coronary artery without angina pectoris; I11.0 Hypertensive heart disease with heart failure; I50.9 Heart failure, unspecified; E11.9 Type 2 diabetes mellitus without complications; E78.5 Hyperlipidemia, unspecified; Z95.0 Presence of cardiac pacemaker; Z87.891 Personal history of nicotine dependence
CPT/HCPCS: 36415; 71045; 80053; 84484; 85025; 93005; 96374; 99284; J2270

== ENCOUNTER 2021-04-16 10:48 | Outpatient (CLI) | payer MEDICARE, MEDICAID, SELFPAY ==
[2021-04-16 11:29] LABS: Basophils # 0.1 10^3/uL (0.0-0.1); Basophils % 0.8 %; Eosinophils # 0.3 10^3/uL (0.0-0.8); Eosinophils % 2.5 %; Hematocrit 39.7 % (37.0-47.0); Hemoglobin 13.1 g/dL (11.5-15.3); Lymphocytes # 1.5 10^3/uL (0.8-4.8); Mean Corpuscular Hemoglobin 30.5 pg (28.0-34.0); Mean Corpuscular Volume 92.3 fl (81-99); Mean Platelet Volume 10.1 fL (7.4-10.4); Monocytes # 0.8 10^3/uL (0.2-0.9); Monocytes % 7.8 %; Neutrophils # 7.54 10^3/uL (1.8-7.7); Neutrophils % 73.1 %; Nucleated Red Blood Cells % 0 %; Platelet Count 230 10^3/cmm (130-400); Red Cell Distribution Width 15.4 % (12.1-15.1); White Blood Count 10.3 10^3/uL (4.0-10.0)
[2021-04-16 11:54] LABS: Albumin Level 4.1 g/dL (3.5-5.2); Anion Gap 17.4 (5-19); Blood Urea Nitrogen 50 mg/dL (8-23); Calcium 9.5 mg/dL (8.5-10.5); Carbon Dioxide 26 mmol/L (22-29); Chloride 94 mmol/L (98-107); Glucose 188 mg/dL (65-115); Phosphorus 2.7 mg/dL (2.5-4.5); Potassium 4.4 mmol/L (3.5-5.1); Sodium 133 mmol/L (136-145)
[2021-04-16 12:15] LABS: Creatinine Urine, Random 71 mg/dL (28-217)
[2021-04-16 12:26] LABS: Calcium 9.5 mg/dL (8.5-10.5)
[2021-04-16 12:28] LABS: Microalbum Creatinine Ratio Ur 732 mg/dL (0-20); Microalbumin Random Urine 52 ug/dL (0-20)
[2021-04-16 12:34] LABS: Parathyroid Hormone 113.2 pg/mL (15-65)
== END 2021-04-16 10:49 | disposition home or self-care (01) ==
LOC: LAB 10:59
PROVIDERS: PCP Family Medicine; Visit Provider Internal Medicine Nephrology
DX: N18.32 Chronic kidney disease, stage 3b (principal)
CPT/HCPCS: 80069; 82044; 82310; 83970; 85025

== ENCOUNTER → 2021-04-23 14:25 | Outpatient (BNVA) | payer MEDICARE, MEDICAID, SELFPAY | PROVIDERS: PCP Family Medicine; Visit Provider Surgery | DX: Z20.822 Contact with and (suspected) exposure to COVID-19 (principal) | CPT/HCPCS: 87635 ==

== ENCOUNTER → 2021-05-21 16:20 | Outpatient (BNVA) | payer MEDICARE, MEDICAID, SELFPAY | PROVIDERS: PCP Family Medicine; Visit Provider Nurse Practitioner Family | DX: N39.0 Urinary tract infection, site not specified (principal) | CPT/HCPCS: 81003; 87077; 87086; 87184 ==

== ENCOUNTER 2021-06-29 09:13 | Outpatient (CLI) | payer MEDICARE, MEDICAID, SELFPAY ==
--- NOTE | 2021-06-29 09:00 | XR_ITS ---
WS: [id number] XR KUB [id number] REASON FOR EXAM: stones FINDINGS: CT scan of 09/14/2020 demonstrated a right intrarenal calculus. The calculus is not readily identifiabl e on the current abdomen film No other urinary tract calculus is identified. Large amount of stool in the colon. No significantly distended bowel. No free air or retroperitoneal air. No mass identified. Severe degenerative spondylosis in the lumbar spine. XR/XR KUB [id number] IMPRESSION: No urinary tract calculi identified.
== END 2021-06-29 09:14 | disposition home or self-care (01) ==
PROVIDERS: PCP Family Medicine; Visit Provider Nurse Practitioner Family
DX: N20.0 Calculus of kidney (principal); N39.0 Urinary tract infection, site not specified
CPT/HCPCS: 74018; 81003; 87077; 87086; 87184

== ENCOUNTER 2021-08-21 12:39 | Inpatient (IN) | payer MEDICARE, MEDICAID, SELFPAY ==
[2021-08-21] VITALS (9 sets, daily range): BP systolic 117–176; BP diastolic 70–99; PULSE 50–88; RESP 14–22; TEMP 36.7–36.8; O2SAT 93–99; BMI 48.0; BMI 43.4
--- NOTE | 2021-08-21 13:13 | ECG_ITS ---
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 Measurements Intervals [place] Rate: 77 P: MD: QRS: 57 QRSD: 129 T: -12 QT: 398 QTc: 451 Interpretive Statements SINUS RHYTHM INDETERMINATE AXIS RIGHT BUNDLE BRANCH BLOCK [120+ ms QRS DURATION, UPRIGHT V1, 40+ ms S IN I/aVL/V4/V5/V6] PROBABLE ANTERIOR MYOCARDIAL INFARCTION , PROBABLY OLD [35 ms Q WAVE IN V3/V4] INFERIOR MYOCARDIAL INFARCTION , OF INDETERMINATE AGE [40+ ms Q WAVE AND/OR ST/T ABNORMALITY IN II/aVF] Compared to ECG 02/08/2021 12:04:15 Indeterminate axis now present Sinus rhythm no longer present First degree AV block no longer present Myocardial infarct finding still present Electronically Signed On 08-21-2021 17:29:42 ROOF BOLTER HELPER by Cuco Pederson M.D. [id number]
--- NOTE | 2021-08-21 13:13 | XRR_ITS ---
PROCEDURE INFORMATION: Exam: XR Chest Exam date and time: 08/21/2021 1:13 PM Age: 70 years old Clinical indication: Chest pain/angina pectoris. TECHNIQUE: Imaging protocol: XR of the chest. Views: 1 view. COMPARISON: CR XR chest 1V portable [id number] 02/08/2021 10:03 AM FINDINGS: Tubes, catheters and devices: A left subclavian pacer is again seen. Lungs: Probable left basilar scarring or atelectasis. Pleural spaces: No pleural effusion. No pneumothorax. Heart/Mediastinum: The cardiac silhouette is approximately unchanged. No gross evidence of pneumomediastinum. Diaphragm: Persistent elevation of the right hemidiaphragm. Bones/joints: No gross fracture. XR/XR chest 1V portable [id number] IMPRESSION: No acute cardiopulmonary abnormality identified.
[2021-08-21 13:24] LABS: Basophils # 0.1 10^3/uL (0.0-0.1); Basophils % 0.7 %; Eosinophils # 0.4 10^3/uL (0.0-0.8); Eosinophils % 3.1 %; Hematocrit 34.7 % (37.0-47.0); Hemoglobin 11.8 g/dL (11.5-15.3); Lymphocytes # 1.9 10^3/uL (0.8-4.8); Lymphocytes % 17.2 %; Mean Corpuscular Hemoglobin 31.1 pg (28.0-34.0); Mean Corpuscular Volume 91.3 fl (81-99); Mean Platelet Volume 10.4 fL (7.4-10.4); Monocytes % 8.7 %; Neutrophils # 7.81 10^3/uL (1.8-7.7); Neutrophils % 69.7 %; Nucleated Red Blood Cells % 0 %; Platelet Count 222 10^3/cmm (130-400); Red Cell Distribution Width 15.6 % (12.1-15.1); White Blood Count 11.2 10^3/uL (4.0-10.0)
[2021-08-21 13:30] LABS: Troponin(5th) Baseline 37 ng/L (0-10)
[2021-08-21 13:31] LABS: Anion Gap 19.4 (5-19); Blood Urea Nitrogen 68 mg/dL (8-23); Calcium 9.3 mg/dL (8.5-10.5); Carbon Dioxide 23 mmol/L (22-29); Chloride 98 mmol/L (98-107); Glucose 202 mg/dL (65-115); Osmolality Calculated 308 mOsm/kg (285-295); Potassium 4.4 mmol/L (3.5-5.1); Sodium 136 mmol/L (136-145)
[2021-08-21] MEDS: aspirin 325 mg Tablet PO (13:46)
[2021-08-21] MEDS: morphine 4 mg/mL SDV 1 mL 2 MG IVP (14:39)
[2021-08-21] MEDS: nitroglycerin 0.4 mg sublingual Tablet SUBLINGUAL (14:40)
--- NOTE | 2021-08-21 14:49 | ED_ITS ---
HPI - General Adult General: Chief complaint: Chest Pain Stated complaint: SUBSTERNAL CHEST PAIN Time Seen by Provider: 08/21/21 12:54 History of Present Illness: CC: Chest Pain HPI: This is a [70] yo patient hx of HTN, CAD, CHF, atrial fibrillation on eliquis presenting to the ED w/ acute onset intermittent substernal chest pain x 6 hours. Pain is not tearing in nature and does not radiate to the back. Endorse nausea but has no associated with vomiting or decreased PO intake. Denies any recent sympathomimetic drug use. Patient denies any cough. Denies palpitations, syncope symptoms. Pain not positional. Norecent immobility, surgery, unilateral leg swelling, or prior PE. Patient denies any orthopnea, paroxysmal nocturnal dyspnea, weight gain, or increased leg swellings. Onset: 6 hrs ago Duration: ongoing for the last 6 hours Location: home Severity: moderate Associated symptoms: Reports chest pain; Deny dyspnea, nausea, rash, palpitations or vomiting Review of Systems Const: Denies: fever(s) or chills Eyes: Denies: change in vision ENMT: Denies: mouth pain Card: Reports: chest pain; Denies: palpitations Resp: Denies: dyspnea or non-productive cough GI: Denies: abdominal pain, nausea, vomiting or diarrhea : Denies: dysuria Musc: Denies: extremity pain Skin/Breast: Denies: rash or new lesions Neuro: Denies: weakness in extremities Psych: Reports: other (Normal mood) Francois/Lymph: Denies: easy bruising PFSH ED PFSH: Medical History Aortic stenosis Atrial fibrillation by electrocardiogram CAD (coronary artery disease) CHF (congestive heart failure) Dental caries Diabetes DJD (degenerative joint disease) Gastroenteritis GERD (gastroesophageal reflux disease) HTN (hypertension) Hypercholesterolemia Hyperlipidemia Recurrent UTI Long history of recurrent UTIs suspicious for CHRONIC CYSTITIS. ESBL E. coli documented in 2019. Renal stone Rhabdomyolysis Urinary incontinence Surgical History H/O colonoscopy yrs ago History of cardiac catheterization History of hernia repair History of hip surgery History of hysterectomy History of knee surgery History of sinus surgery History of tonsillectomy History of umbilical hernia repair Status post placement of cardiac pacemaker Family History Father , in his 60's Lung disease Mother , 99 Hypertension Other Diabetes Stroke Denies family history of CAD (coronary artery disease) Clotting disorder Dementia Chronic kidney disease (CKD) Anesthesia complication Bleeding disorder Social History Quit status (tobacco): has quit using tobacco Former quit date comment: Smoking in her 20s Alcohol intake: never Caregiver/support person: Yes (Home health services Friday) Lives independently: Yes Housing: House Marital status: Current occupational status: retired History of recent travel: No Current gender identity: Female Physical Exam Const: COMMON NORMALS: alert HENMT: COMMON NORMALS: atraumatic HEAD & SCALP: atraumatic MOUTH: moist mucous membranes not abnormal Eye: COMMON NORMALS: EOMs intact bilaterally and conjunctivae normal CONJUNCTIVA: Yes conjunctivae normal Neck/C-Spine: COMMON NORMALS: full ROM and supple Resp: COMMON NORMALS: normal respiratory effort and clear to auscultation bilaterally AUSCULTATION: clear to auscultation bilaterally Cardio: COMMON NORMALS: regular rate RATE: regular rate OTHER: 2+ radial pulses b/l GI: COMMON NORMALS: Soft to palpation and non-tender PALPATION: Yes Soft to palpation Extremity: COMMON NORMALS: full ROM Neuro: SENSORIUM/ORIENTATION: Yes alert MOTOR EXAM: No Abnormal motor strength present and Other motor observations present (no focal motor deficits) Psych: COMMON NORMALS: speech normal SPEECH: Yes normal speech MOOD & AFFECT: Yes euthymic mood Course Vital Signs: Vital signs: Vital Signs Temperature 98.1 F 08/21/21 13:31 Pulse Rate 88 08/21/21 15:00 Respiratory Rate 20 H 08/21/21 15:00 Blood Pressure 175/79 08/21/21 15:00 Pulse Oximetry 93 08/21/21 15:00 MDM - General Adult Medical Decision Making [70]yo patient w/ hx of CAD, CHF, afib, aortic stenosis presenting to the ED With acute substernal chest pain X 6 hrs with hx of similar prior pain. Currently mild chest pain. Given History And Exam today I have moderate to high suspicion for ACS/UA/NSTEMI. Today, I have NO suspicion for pneumothorax, pneumonia, pulmonary embolus, tamponade, aortic dissection or other emergent problem as a cause for this presentation. ECG did not show any signs of acute STEMI. Workup: ECG x 2, CXR, CBC, BMP, Troponin x 2 Intervention: ASA 325mg, SL nitroglycerin Findings: ECG: No overt evidence of STEMI, no hyperacute T waves, localizable STD or T wave inversions. No evidence of Brugada?s sign, delta wave, epsilon wave, significantly prolonged QTc, or malignant arrhythmia. No Q waves. Troponin: Negative x 1 Other Labs unremarkable for emergent problems. CXR: Without PTX, PNA, or widened mediastinum [3:27pm] On reassessment, the patient is currently chest pain free. S/p aspirin 325mg. Troponin x 1 of 37. EKG is non ischemic. While in the ED, patient had moderate pain relieved with nitroglycerin. Disposition: Inpatient admission. Lab Data : 08/21/21 12:50 08/21/21 12:50 Radiology Impressions Chest X-Ray 08/21/21 13:13 IMPRESSION: No acute cardiopulmonary abnormality identified. Laboratory Results WBC 11.2 10^3/uL (4.0-10.0) H 08/21/21 12:50 RBC 3.80 10^6/uL (4.1-5.3) L 08/21/21 12:50 Hgb 11.8 g/dL (11.5-15.3) 08/21/21 12:50 Hct 34.7 % (37.0-47.0) L 08/21/21 12:50 MCV 91.3 fl (81-99) 08/21/21 12:50 MCH 31.1 pg (28.0-34.0) 08/21/21 12:50 MCHC 34.0 g/dL (30.0-36.0) 08/21/21 12:50 RDW 15.6 % (12.1-15.1) H 08/21/21 12:50 Plt Count 222 10^3/cmm (130-400) 08/21/21 12:50 MPV 10.4 fL (7.4-10.4) 08/21/21 12:50 Neut % (Auto) 69.7 % 08/21/21 12:50 Lymph % (Auto) 17.2 % 08/21/21 12:50 [place] % (Auto) 8.7 % 08/21/21 12:50 Eos % (Auto) 3.1 % 08/21/21 12:50 Baso % (Auto) 0.7 % 08/21/21 12:50 Neut # (Auto) 7.81 10^3/uL (1.8-7.7) H 08/21/21 12:50 Lymph # (Auto) 1.9 10^3/uL (0.8-4.8) 08/21/21 12:50 [place] # (Auto) 1.0 10^3/uL (0.2-0.9) H 08/21/21 12:50 Eos # (Auto) 0.4 10^3/uL (0.0-0.8) 08/21/21 12:50 Baso # (Auto) 0.1 10^3/uL (0.0-0.1) 08/21/21 12:50 Nucleated RBC % (auto) 0 % 08/21/21 12:50 Nucleated RBCs # 0.0 /100WBC 08/21/21 12:50 Sodium 136 mmol/L (136-145) 08/21/21 12:50 Potassium 4.4 mmol/L (3.5-5.1) 08/21/21 12:50 Chloride 98 mmol/L (98-107) 08/21/21 12:50 Carbon Dioxide 23 mmol/L (22-29) 08/21/21 12:50 Anion Gap 19.4 (5-19) H 08/21/21 12:50 BUN 68 mg/dL (8-23) H 08/21/21 12:50 Creatinine 1.4 mg/dL (0.5-0.9) H 08/21/21 12:50 GFR Calculation Not Reportable 08/21/21 12:50 Glucose 202 mg/dL (65-115) H 08/21/21 12:50 Calculated Osmolality 308 mOsm/kg (285-295) H 08/21/21 12:50 Calcium 9.3 mg/dL (8.5-10.5) 08/21/21 12:50 Troponin T Baseline 37 ng/L (0-10) H 08/21/21 12:50 Imaging Data Other Imaging: Radiologist's impression: [facility] [address] XRay Report Signed Patient: Fantasma Montalvo Unit #: [id number] : 1950 Age/Sex: 70 / F ADM Date: 08/21/21 Loc: ER Room/Bed: Attending Dr: Ordering Provider/Ordering MD: Raphael Shin MD Date of Service: 08/21/21 Procedure(s): XR chest 1V portable [id number] Accession Number(s): [id number] Report Number: [id number] PROCEDURE INFORMATION: Exam: XR Chest Exam date and time: 08/21/2021 1:13 PM Age: 70 years old Clinical indication: Chest pain/angina pectoris. TECHNIQUE: Imaging protocol: XR of the chest. Views: 1 view. COMPARISON: CR XR chest 1V portable [id number] 02/08/2021 10:03 AM FINDINGS: Tubes, catheters and devices: A left subclavian pacer is again seen. Lungs: Probable left basilar scarring or atelectasis. Pleural spaces: No pleural effusion. No pneumothorax. Heart/Mediastinum: The cardiac silhouette is approximately unchanged. No gross evidence of pneumomediastinum. Diaphragm: Persistent elevation of the right hemidiaphragm. Bones/joints: No gross fracture. XR/XR chest 1V portable [id number] IMPRESSION: No acute cardiopulmonary abnormality identified. ? Dictated By: Matt Richardson Signed By: Matt Richardson Signed Date/Time: 08/21/21 1406 DD/ 1313 Discharge Plan Discharge Condition: Stable Prescriptions: No Action insulin glargine 100 unit/mL (3 mL) insulin pen 12 unit SUBCUT BEDTIME@20 0RF sennosides-docusate sodium 8.6-50 mg tablet 1 tab PO DAILY PRN (Reason: Constipation) 0RF amoxicillin-pot clavulanate 875-125 mg tablet 1 tab PO BID Qty: 28 2RF methenamine hippurate 1 gram tablet 1 g PO BID Qty: 60 12RF Rx Instructions: Take 1000 mg of vitamin C with each dose of methenamine insulin aspart U-100 [Novolog Flexpen U-100 Insulin] 100 unit/mL (3 mL) Insulin Pen See Rx Instructions .ROUTE .COMPLEX 0RF Rx Instructions: PER SLIDING SCALE isosorbide mononitrate 30 mg tablet extended release 24 hr 30 mg PO BID@08,20 0RF nifedipine 30 mg tablet extended release 30 mg PO DAILY@08 0RF levothyroxine 50 mcg tablet 50 mcg PO DAILY@08 0RF bumetanide 1 mg tablet 2 mg PO DAILY@08 0RF Hold Instructions: Resume on 09/25/20. resume on friday Rx Instructions: DOSE CHANGE nitroglycerin [Nitrostat] 0.4 mg Tablet, Sublingual 0.4 mg SUBLINGUAL Q5M PRN (Reason: Chest Pain) 0RF Dexilant 60 mg capsule,biphase delayed releas 60 mg PO DAILY@08 0RF Label Comments: Not sure if patient is taking sertraline 25 mg tablet 25 mg PO DAILY@08 0RF Label Comments: Not sure if patient is taking Eliquis 5 mg tablet 2.5 mg PO BID@08,20 0RF clopidogrel 75 mg tablet 75 mg PO DAILY@08 0RF gabapentin 100 mg capsule 100 mg PO BEDTIME@20 0RF rosuvastatin 20 mg tablet 20 mg PO BEDTIME@20 0RF glipizide 10 mg tablet 10 mg PO BID 0RF fentanyl 50 mcg/hr patch 72 hour 50 mcg topical Q72H Qty: 10 0RF Rx Instructions: q72h potassium chloride 10 mEq tablet extended release 10 meq PO DAILY@08 0RF Referrals: Betsy Nuno DO [Primary Care Provider] - Coding Level of Care Code ED Tenter for [facility] Fwd Exam Comprehensive
--- NOTE | 2021-08-21 15:12 | PC.NURSE ---
Recliner to room for pt's elderly brother who is using a walker & has mobility problems.
--- NOTE | 2021-08-21 15:13 | ECG_ITS ---
[facility] Test Date: 2021-08-21 Pat Name: Fantasma Montalvo Department: Room: Gender: Female Medical Coding Manager: : 1950 Requested By: Raphael Shin Order Number: [id number] Maribell MD: Cuco Pederson M.D. Measurements Intervals [place] Rate: 77 P: 64 [place]: 277 QRS: 62 QRSD: 134 T: -5 QT: 445 QTc: 504 Interpretive Statements SINUS RHYTHM WITH FIRST DEGREE AV BLOCK INDETERMINATE AXIS RIGHT BUNDLE BRANCH BLOCK [120+ ms QRS DURATION, UPRIGHT V1, 40+ ms S IN I/aVL/V4/V5/V6] ANTERIOR MYOCARDIAL INFARCTION , PROBABLY OLD [40+ ms Q WAVE AND/OR ST/T ABNORMALITY IN V3/V4] INFERIOR MYOCARDIAL INFARCTION , OF INDETERMINATE AGE [40+ ms Q WAVE AND/OR ST/T ABNORMALITY IN II/aVF] Compared to ECG 08/21/2021 12:57:03 First degree AV block now present Myocardial infarct finding still present Electronically Signed On 08-21-2021 17:37:44 RN PLACEMENT by Cuco Pederson M.D. [id number]
[2021-08-21 15:57] LABS: Troponin 5 2HR 33.35 ng/L (0-10)
[2021-08-21 16:01] LABS: Troponin 5 2HR Delta -3.65 ABS# (0-10)
--- NOTE | 2021-08-21 19:13 | ECG_ITS ---
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 Measurements Intervals [place] Rate: 76 P: 78 [place]: 271 QRS: 48 QRSD: 138 T: -17 QT: 404 QTc: 456 Interpretive Statements SINUS RHYTHM WITH FIRST DEGREE AV BLOCK INDETERMINATE AXIS RIGHT BUNDLE BRANCH BLOCK [120+ ms QRS DURATION, UPRIGHT V1, 40+ ms S IN I/aVL/V4/V5/V6] ANTERIOR MYOCARDIAL INFARCTION , OF INDETERMINATE AGE [40+ ms Q WAVE AND/OR ST/T ABNORMALITY IN V3/V4] INFERIOR MYOCARDIAL INFARCTION , OF INDETERMINATE AGE [40+ ms Q WAVE AND/OR ST/T ABNORMALITY IN II/aVF] Compared to ECG 08/21/2021 13:22:12 No significant changes Electronically Signed On 08-21-2021 17:35:57 TEMPLATE INSPECTOR by Cuco Pederson M.D. [id number]
--- NOTE | 2021-08-21 19:15 | PM.HP ---
Providers/Chief Complaint Admitting Physician: Ruchi Malloy MD Primary Care Provider: Betsy Nuno DO Chief Complaint: SUBSTERNAL CHEST PAIN History of Present Illness Fantasma Montalvo is a 70 year old female with established history of coronary disease EF 60% grade 2 diastolic dysfunction, mild aortic valve stenosis, mild pulmonary hypertension A. fib, presented to the hospital with chief complaint of chest pain. Patient stated that her symptoms started at 8 AM in her apartment when she was resting. She is describing her pain as someone sitting on her chest pressure-like sensation radiating towards the left arm and jaw. She tried to change her position in order to make her comfortable however her chest pain was intermittent. Because of worsening of pain she decided to come to the ER for further evaluation. Since yesterday she has noted 3 loose stools. No recent fever, shortness of breath, vomiting. She is endorsing nausea. She lives in an apartment, does need help from a friend who visits her 3 times a week. She is not vaccinated for COVID-19. Last echo was in September 2020. Troponin with negative delta, patient is stating she has dull pain at the time of my evaluation 7 PM, EKG sinus rhythm right bundle branch block, T wave inversion inferior lateral leads I have spoken with Dr. Rome who will evaluate the patient tomorrow morning She will be n.p.o. after midnight Might benefit from an angiogram Review of Systems Const: Denies: chills Eyes: Denies: change in vision ENMT: Denies: throat pain Card: Reports: chest pain Resp: Denies: dyspnea GI: Reports: diarrhea : Denies: flank pain Musc: Reports: back pain Skin/Breast: Denies: rash Neuro: Denies: headache(s) Psych: Denies: anxiety Endo: Denies: polyuria Francois/Lymph: Denies: easy bruising All/Imm: Denies: urticaria Medications/Allergies Home Medications Medication Instructions Recorded Confirmed Last Taken Type insulin glargine 100 unit/mL (3 12 unit SUBCUT BEDTIME@20 ml 11/12/19 08/21/21 08/20/21 History mL) subcutaneous pen sennosides 8.6 mg-docusate sodium 1 tab PO DAILY PRN tab 11/12/19 08/21/21 02/27/20 History 50 mg tablet potassium chloride 10 mEq 10 meq PO DAILY@01/05/20 08/21/21 08/21/21 History tablet,extended release bumetanide 1 mg tablet 2 mg PO DAILY@05/25/20 08/21/21 08/21/21 History insulin aspart U-100 100 unit/mL See Rx Instructions .ROUTE .COMPLEX 05/25/20 08/21/21 12/06/20 History (3 mL) subcutaneous pen (Novolog Flexpen U-100 Insulin aspart) isosorbide mononitrate 30 mg 30 mg PO BID@05/25/20 08/21/21 08/21/21 History tablet,extended release 24 hr levothyroxine 50 mcg tablet 50 mcg PO DAILY@05/25/20 08/21/21 08/21/21 History nifedipine 30 mg tablet,extended 30 mg PO DAILY@05/25/20 08/21/21 08/21/21 History release nitroglycerin 0.4 mg sublingual 0.4 mg SUBLINGUAL Q5M PRN 05/25/20 08/21/21 Unknown History tablet (Nitrostat) apixaban 5 mg tablet (Eliquis) 2.5 mg PO BID@10/31/20 08/21/21 08/21/21 History clopidogrel 75 mg tablet 75 mg PO DAILY@10/31/20 08/21/21 08/21/21 History dexlansoprazole 60 mg 60 mg PO DAILY@10/31/20 08/21/21 08/21/21 History capsule,biphase delayed release (Dexilant) gabapentin 100 mg capsule 100 mg PO BEDTIME@10/31/20 08/21/21 08/20/21 History rosuvastatin 20 mg tablet 20 mg PO BEDTIME@10/31/20 08/21/21 08/20/21 History sertraline 25 mg tablet 25 mg PO DAILY@10/31/20 08/21/21 08/21/21 History glipizide 10 mg tablet 10 mg PO BID 02/08/21 08/21/21 08/21/21 History methenamine hippurate 1 gram tablet 1 g PO BID #60 tab 06/29/21 08/21/21 08/21/21 Rx ascorbic acid (vitamin C) 1,000 mg 1,000 mg PO BID 08/21/21 08/21/21 08/21/21 History tablet (Vitamin C) fentanyl 25 mcg/hr transdermal 25 mcg TRANSDERMAL Q72H 08/21/21 08/21/21 08/21/21 History patch Allergies Allergy/AdvReac Type Severity Reaction Status Date / Time citalopram [From Celexa] Allergy Unknown Verified 08/21/21 12:46 duloxetine [From Cymbalta] Allergy Unknown Verified 08/21/21 12:46 prochlorperazine Allergy ALGY-Anaphy Verified 08/21/21 12:46 [From Compazine] laxis shellfish derived Allergy Unknown Verified 08/21/21 12:46 sucralfate [From Carafate] Allergy Unknown Verified 08/21/21 12:46 trazodone Allergy Unknown Verified 08/21/21 12:46 zaleplon [From Sonata] Allergy Unknown Verified 08/21/21 12:46 PFSH Acute PFSH: Medical History Aortic stenosis Atrial fibrillation by electrocardiogram CAD (coronary artery disease) CHF (congestive heart failure) Dental caries Diabetes DJD (degenerative joint disease) Gastroenteritis GERD (gastroesophageal reflux disease) HTN (hypertension) Hypercholesterolemia Hyperlipidemia Recurrent UTI Long history of recurrent UTIs suspicious for CHRONIC CYSTITIS. ESBL E. coli documented in 2019. Renal stone Rhabdomyolysis Urinary incontinence Surgical History H/O colonoscopy yrs ago History of cardiac catheterization History of hernia repair History of hip surgery History of hysterectomy History of knee surgery History of sinus surgery History of tonsillectomy History of umbilical hernia repair Status post placement of cardiac pacemaker Family History Father , in his 60's Lung disease Mother , 99 Hypertension Other Diabetes Stroke Denies family history of CAD (coronary artery disease) Clotting disorder Dementia Chronic kidney disease (CKD) Anesthesia complication Bleeding disorder Social History Quit status (tobacco): has quit using tobacco Former quit date comment: Smoking in her 20s Alcohol intake: never Caregiver/support person: Yes (Home health services Friday) Lives independently: Yes Housing: House Marital status: Current occupational status: retired History of recent travel: No Current gender identity: Female Vitals/I&O/Wt Last Vital Signs Temp 98.1 F 08/21/21 17:40 Pulse 50 L 08/21/21 17:40 Resp 22 H 08/21/21 17:40 BP 176/81 08/21/21 17:40 Pulse Ox 94 08/21/21 17:40 Weight last 48 hrs Weight 97.522 kg Weight 107.955 kg Physical Exam Narrative: Very pleasant she is eating a sandwich Endorsing dull pain However seems very comfortable eating her dinner Nonreproducible chest pain Abdomen distended with obesity Lower symmetry no edema Saturating well on room air Nonfocal neuro exam No audible stridor or wheezing Appropriate mood and affect Data : 08/21/21 12:50 08/21/21 12:50 A&P Assessment and plan (1) Chronic kidney insufficiency: Status: Acute (2) Pacemaker: Status: Acute (3) Sinus pause: Status: Acute (4) Anticoagulation adequate with anticoagulant therapy: Status: Acute (5) Morbid obesity: Status: Acute (6) HTN (hypertension): Status: Acute (7) CAD (coronary artery disease): Status: Acute Qualifiers: Associated angina: without angina Coronary Disease-Associated Artery/Lesion type: [place] artery [place] vs. transplanted heart: [place] heart Qualified Code(s): I25.10 - Atherosclerotic heart disease of [place] coronary artery without angina pectoris (8) Unstable angina: Status: Acute Plan Unstable angina Troponin negative delta T wave version in inferior lateral leads Considering established coronary disease mild I would keep her n.p.o., possible angiogram tomorrow morning, case presented to Dr. Rome I would not start ACS protocol right now Would use nitro as needed, in case of hypertension, avoid nitro and use morphine Chronic kidney disease: Creatinine is usually around baseline, Diabetes: We will keep her on sliding scale Check A1c level A. fib: Without RVR: Hold Eliquis We will give her Lovenox during hospitalization Currently looks euvolemic hold Bumex for now Full code In case of an emergency she wants her brother to be updated Continue levothyroxine Attestations Medical Necessity Statement*: More than 2 midnights anticipate more than 2 midnights anticipated Time Spent in Patient Care: 35 Coding Level of Care Code Acute Supervisor Transcribing Operators for Chg Fwd Diagnoses Chronic kidney insufficiency N18.9 Pacemaker Z95.0 Sinus pause I45.5 Anticoagulation adequate with anticoagulant therapy Z79.01 Morbid obesity E66.01 HTN (hypertension) I10 CAD (coronary artery disease) I25.10 Associated angina: without angina Coronary Disease-Associated Artery/Lesion type: [place] artery [place] vs. transplanted heart: [place] heart Unstable angina I20.0
[2021-08-21 20:09] LABS: Troponin 5 6HR 36.34 ng/L (0-10)
[2021-08-21 20:12] LABS: Troponin 5 6HR Delta -0.66 ng/L (0-12)
[2021-08-21] MEDS: gabapentin 100 mg Capsule PO (20:43)
[2021-08-21] MEDS: atorvastatin 40 mg Tablet 80 MG PO (20:43)
[2021-08-21] MEDS: isosorbide mononitrate ER 30 mg Tablet PO (20:44)
[2021-08-21] MEDS: fentaNYL 25 mcg Patch 1 PATCH TRANSDERMA (20:45)
[2021-08-21 21:27] LABS: Glucose Point of Care 251 mg/dL (70-110)
--- NOTE | 2021-08-21 22:01 | PM.CONSULT ---
Providers/Reason For Consult Consulting Physician/Specialty*: MICH Rome MD/cardiology Reason for Consult*: Chest pain/ASHD Requesting Physician: Gama Attending Physician: Ruchi Malloy MD Primary Care Provider: Betsy Nuno DO History of Present Illness History of Present Illness Fantasma Montalvo is a 70 year old female is admitted to hospital with complaints of prolonged episode of chest pain. This patient is known to have three-vessel coronary disease. She had a PCI of the RCA and diagonal lesion in August 2019. Cardiology consult is requested for further cardiac evaluation recommendations. According to the patient, she was in her baseline state of health up until this morning when she started having left sided chest pain. The pain was confined to the left upper part of the chest, radiated to the left shoulder, to the left side of the neck and also to the back. The intensity of the pain was mild to moderate. The pain has been waxing and waning. She been having chest pain for several hours. Currently the pain is almost gone. She may have some nausea. No associated palpitation, dizziness or syncopal episode. No fever or chills. No cough. No unusual shortness of breath. She has had baseline shortness of breath with activities. Patient is known to have chronic intermittent atrial fibrillation. She is on long-term oral anticoagulation. 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 She also is known to have high blood pressure, dyslipidemia, type 2 diabetes, chronic kidney disease, hypothyroidism and degenerative joint disease. She has been having some frequent bowel movements for the last couple of days. No fever or chills. No cough. She had echocardiogram last year and was found to have mild aortic valve stenosis. Her LV ejection fraction was within normal limits. The findings are as follows. She also is known to have mild plaque buildup in the carotid arteries. Review of Systems Const: Denies: chills Eyes: Denies: change in vision ENMT: Denies: throat pain Card: Reports: chest pain Resp: Denies: dyspnea GI: Reports: diarrhea : Denies: flank pain Musc: Reports: back pain Skin/Breast: Denies: rash Neuro: Denies: headache(s) Psych: Denies: anxiety Endo: Denies: polyuria Francois/Lymph: Denies: easy bruising All/Imm: Denies: urticaria Medications/Allergies Home Medications Medication Instructions Recorded Confirmed Last Taken Type insulin glargine 100 unit/mL (3 12 unit SUBCUT BEDTIME@20 ml 11/12/19 08/21/21 08/20/21 History mL) subcutaneous pen sennosides 8.6 mg-docusate sodium 1 tab PO DAILY PRN tab 11/12/19 08/21/21 02/27/20 History 50 mg tablet potassium chloride 10 mEq 10 meq PO DAILY@01/05/20 08/21/21 08/21/21 History tablet,extended release bumetanide 1 mg tablet 2 mg PO DAILY@05/25/20 08/21/21 08/21/21 History insulin aspart U-100 100 unit/mL See Rx Instructions .ROUTE .COMPLEX 05/25/20 08/21/21 12/06/20 History (3 mL) subcutaneous pen (Novolog Flexpen U-100 Insulin aspart) isosorbide mononitrate 30 mg 30 mg PO BID@05/25/20 08/21/21 08/21/21 History tablet,extended release 24 hr levothyroxine 50 mcg tablet 50 mcg PO DAILY@05/25/20 08/21/21 08/21/21 History nifedipine 30 mg tablet,extended 30 mg PO DAILY@05/25/20 08/21/21 08/21/21 History release nitroglycerin 0.4 mg sublingual 0.4 mg SUBLINGUAL Q5M PRN 05/25/20 08/21/21 Unknown History tablet (Nitrostat) apixaban 5 mg tablet (Eliquis) 2.5 mg PO BID@10/31/20 08/21/21 08/21/21 History clopidogrel 75 mg tablet 75 mg PO DAILY@10/31/20 08/21/21 08/21/21 History dexlansoprazole 60 mg 60 mg PO DAILY@10/31/20 08/21/21 08/21/21 History capsule,biphase delayed release (Dexilant) gabapentin 100 mg capsule 100 mg PO BEDTIME@10/31/20 08/21/21 08/20/21 History rosuvastatin 20 mg tablet 20 mg PO BEDTIME@10/31/20 08/21/21 08/20/21 History sertraline 25 mg tablet 25 mg PO DAILY@08 10/31/20 08/21/21 08/21/21 History glipizide 10 mg tablet 10 mg PO BID 02/08/21 08/21/21 08/21/21 History methenamine hippurate 1 gram tablet 1 g PO BID #60 tab 06/29/21 08/21/21 08/21/21 Rx ascorbic acid (vitamin C) 1,000 mg 1,000 mg PO BID 08/21/21 08/21/21 08/21/21 History tablet (Vitamin C) fentanyl 25 mcg/hr transdermal 25 mcg TRANSDERMAL Q72H 08/21/21 08/21/21 08/21/21 History patch Allergies Allergy/AdvReac Type Severity Reaction Status Date / Time citalopram [From Celexa] Allergy Unknown Verified 08/21/21 12:46 duloxetine [From Cymbalta] Allergy Unknown Verified 08/21/21 12:46 prochlorperazine Allergy ALGY-Anaphy Verified 08/21/21 12:46 [From Compazine] laxis shellfish derived Allergy Unknown Verified 08/21/21 12:46 sucralfate [From Carafate] Allergy Unknown Verified 08/21/21 12:46 trazodone Allergy Unknown Verified 08/21/21 12:46 zaleplon [From Sonata] Allergy Unknown Verified 08/21/21 12:46 Current Medications Generic Name Dose Route Start Last Admin Trade Name Freq PRN Reason Stop Dose Admin Atorvastatin Calcium 80 mg 08/21/21 20:00 08/21/21 20:43 Atorvastatin 40 Mg Tablet PO 80 mg BEDTIME@20 PINA Administration Fentanyl 1 patch 08/21/21 19:30 08/21/21 20:45 Fentanyl 25 Mcg Patch TRANSDERMA 1 patch Q72H PINA Administration Gabapentin 100 mg 08/21/21 20:00 08/21/21 20:43 Gabapentin 100 Mg Capsule PO 100 mg BEDTIME@20 PINA Administration Isosorbide Mononitrate 30 mg 08/21/21 20:00 08/21/21 20:44 Isosorbide Mononitrate Er 30 Mg Tablet PO 30 mg BID@08,20 PINA Administration PFSH Acute PFSH: Medical History Aortic stenosis Atrial fibrillation by electrocardiogram CAD (coronary artery disease) CHF (congestive heart failure) Dental caries Diabetes DJD (degenerative joint disease) Gastroenteritis GERD (gastroesophageal reflux disease) HTN (hypertension) Hypercholesterolemia Hyperlipidemia Recurrent UTI Long history of recurrent UTIs suspicious for CHRONIC CYSTITIS. ESBL E. coli documented in 2019. Renal stone Rhabdomyolysis Urinary incontinence Surgical History H/O colonoscopy yrs ago History of cardiac catheterization History of hernia repair History of hip surgery History of hysterectomy History of knee surgery History of sinus surgery History of tonsillectomy History of umbilical hernia repair Status post placement of cardiac pacemaker Family History Father , in his 60's Lung disease Mother , 99 Hypertension Other Diabetes Stroke Denies family history of CAD (coronary artery disease) Clotting disorder Dementia Chronic kidney disease (CKD) Anesthesia complication Bleeding disorder Social History Quit status (tobacco): has quit using tobacco Former quit date comment: Smoking in her 20s Alcohol intake: never Caregiver/support person: Yes (Home health services Friday) Lives independently: Yes Housing: House Marital status: Current occupational status: retired History of recent travel: No Current gender identity: Female Vitals/I&O/Wt Last Vital Signs Temp 98.3 F 08/21/21 20:31 Pulse 75 08/21/21 20:31 Resp 19 H 08/21/21 20:31 BP 154/70 08/21/21 20:31 Pulse Ox 95 08/21/21 20:31 08/21/21 08/21/21 08/21/21 06:59 14:59 22:59 Intake Total 100 / 100 Balance 100 / 100 Weight last 48 hrs Weight 215 lb Weight 238 lb Physical Exam Narrative: GENERAL: The patient is alert and oriented times three. Not in any acute distress. Morbidly obese HEENT: No significant pallor, icterus or lymphadenopathy. The pupils are reactant to light. Oral cavity: There are no mucous membrane lesions. Funduscopic examination: The fundus is not visualized NECK: Trachea appears to be central. No masses noted. No JVD or thyromegaly appreciated. No carotid bruit. RESPIRATORY: Chest is symmetrical. No intercostals muscle retraction or any accessory muscle activation. Chest wall tenderness on the left upper part of the chest. Breath sounds are heard bilaterally. No rales or rhonchi heard. No evidence of any consolidation. BREASTS: Deferred. HEART: The PMI could not be felt no palpable precordial events. S1 and S2 are normal. No S3 or S4 heard. No pericardial rub or any click heard. ABDOMEN: Abdomen is obese nontender. No vessel pulsations or distention. No tenderness. No organomegaly appreciated. No abdominal bruit. Bowel sounds are normally heard. : Deferred. RECTAL: Deferred. LYMPHATIC: No lymphadenopathy noted in the neck . EXTREMITIES: No edema or cyanosis. Peripheral pulses are palpable but of low volume and amplitude. MUSCULOSKELETAL: No acute joint deformities or swelling SKIN: There are no significant scars or skin rash noted. NEUROPSYCHIATRIC: The patient is alert and oriented x3. Appears to be in a good mood. The higher functions are grossly within normal limits. No tremors or rigidity noted. Data : 08/22/21 05:06 08/22/21 05:06 Other Labs: Laboratory Last Values WBC 11.2 10^3/uL (4.0-10.0) H 08/21/21 12:50 RBC 3.80 10^6/uL (4.1-5.3) L 08/21/21 12:50 Hgb 11.8 g/dL (11.5-15.3) 08/21/21 12:50 Hct 34.7 % (37.0-47.0) L 08/21/21 12:50 MCV 91.3 fl (81-99) 08/21/21 12:50 MCH 31.1 pg (28.0-34.0) 08/21/21 12:50 MCHC 34.0 g/dL (30.0-36.0) 08/21/21 12:50 RDW 15.6 % (12.1-15.1) H 08/21/21 12:50 Plt Count 222 10^3/cmm (130-400) 08/21/21 12:50 MPV 10.4 fL (7.4-10.4) 08/21/21 12:50 Neut % (Auto) 69.7 % 08/21/21 12:50 Lymph % (Auto) 17.2 % 08/21/21 12:50 [place] % (Auto) 8.7 % 08/21/21 12:50 Eos % (Auto) 3.1 % 08/21/21 12:50 Baso % (Auto) 0.7 % 08/21/21 12:50 Neut # (Auto) 7.81 10^3/uL (1.8-7.7) H 08/21/21 12:50 Lymph # (Auto) 1.9 10^3/uL (0.8-4.8) 08/21/21 12:50 [place] # (Auto) 1.0 10^3/uL (0.2-0.9) H 08/21/21 12:50 Eos # (Auto) 0.4 10^3/uL (0.0-0.8) 08/21/21 12:50 Baso # (Auto) 0.1 10^3/uL (0.0-0.1) 08/21/21 12:50 Nucleated RBC % (auto) 0 % 08/21/21 12:50 Nucleated RBCs # 0.0 /100WBC 08/21/21 12:50 Sodium 136 mmol/L (136-145) 08/21/21 12:50 Potassium 4.4 mmol/L (3.5-5.1) 08/21/21 12:50 Chloride 98 mmol/L (98-107) 08/21/21 12:50 Carbon Dioxide 23 mmol/L (22-29) 08/21/21 12:50 Anion Gap 19.4 (5-19) H 08/21/21 12:50 BUN 68 mg/dL (8-23) H 08/21/21 12:50 Creatinine 1.4 mg/dL (0.5-0.9) H 08/21/21 12:50 GFR Calculation Not Reportable 08/21/21 12:50 Glucose 202 mg/dL (65-115) H 08/21/21 12:50 POC Glucose 251 mg/dL (70-110) H 08/21/21 20:57 Calculated Osmolality 308 mOsm/kg (285-295) H 08/21/21 12:50 Calcium 9.3 mg/dL (8.5-10.5) 08/21/21 12:50 Troponin T Baseline 37 ng/L (0-10) H 08/21/21 12:50 Troponin T 120 Minute 33.35 ng/L (0-10) H 08/21/21 15:17 Delta Troponin T -3.65 ABS# (0-10) L 08/21/21 15:17 Troponin T Hi Sens 6Hr 36.34 ng/L (0-10) H 08/21/21 19:34 Troponin T Hi Sens 6Hr Delta -0.66 ng/L (0-12) L 08/21/21 19:34 Other Imaging: My impression: CONCLUSIONS ?1. Normal left ventricular cavity size. Moderate concentric left ?ventricular hypertrophy. Normal left ventricular systolic ?function. Left ventricular ejection fraction is estimated at 60 ?%. Grade II diastolic dysfunction, moderately elevated filling ?pressures. ?2. Mild aortic valve stenosis, mean gradient 9.1 mmHg, HERNANDEZ 1.7 ?cm squared.? Mild aortic valve regurgitation. ?3. Mild pulmonary hypertension with pulmonary artery pressure ?estimated at 35 mm Hg. ?4. There may not have been any significant change when compared ?to echo dated 01/05/20. Carotid duplex (09/20/20) ?CONCLUSIONS ?Right ICA stenosis <50%. Mild atheromatous plaque right carotid ?bulb/ICA. ?Left ICA stenosis <50%. Mild atheromatous plaque left carotid ?bulb/ICA. ?Normal antegrade Doppler flow noted in the right vertebral ?artery. ?Normal antegrade Doppler flow noted in the left vertebral EKG 1: My Interpretation: The EKG shows normal sinus rhythm with a right bundle branch block pattern. Possible old anterolateral wall and inferior wall myocardial infarction. Some nonspecific T wave changes. No acute ST-T changes. EKG computer-generated impression: Chest X-Ray 08/21/21 13:13 IMPRESSION: No acute cardiopulmonary abnormality identified. A&P Assessment and plan (1) Left-sided chest pain: Patient is chest pain may assess unstable angina. However she has no significant EKG changes. She has chest wall tenderness. No evidence of myocardial injury. For further evaluation of the symptoms, an echocardiogram would be helpful. [place], perfusion imaging would be appropriate to further evaluate her symptoms. Status: Acute (2) Chronic kidney insufficiency: Patient has a high BUN/creatinine ratio. Patient seems to have a chronically elevated BUN/creatinine. Status: Acute (3) Pacemaker: Patient has a dual-chamber permanent pacemaker. Pacemaker function was on be appropriate based on the most recent interrogation. Status: Acute (4) Morbid obesity: Status: Acute (5) Hypercholesterolemia: May continue on the current medications. Status: Acute (6) HTN (hypertension): Currently the blood pressure is a stage II. The antihypertensive medications need to be optimized. Status: Acute (7) Atrial fibrillation by electrocardiogram: Patient is currently in normal sinus rhythm. She is on long-term oral anticoagulation. May continue on the current treatment measures. Status: Acute Plan Patient had an echocardiogram done. This will be reviewed. Based on the clinical progress and the results of the above tests, further recommendations will be made. I will be discussing with Dr. Morelos, the patient's human resources supervisor about her admission. Thank you for the opportunity to eval this patient make this recommendation. Coding Level of Care Code Acute Commercial Lines Account Assistant for Yaneg Fwd History Detailed Exam Detailed Medical Decision Making Moderate Complexity Diagnoses Chronic kidney insufficiency N18.9 Pacemaker Z95.0 Morbid obesity E66.01 Hypercholesterolemia E78.00 HTN (hypertension) I10 Atrial fibrillation by electrocardiogram I48.91 Left-sided chest pain R07.9
[2021-08-22] VITALS (9 sets, daily range): BP systolic 123–177; BP diastolic 54–75; PULSE 63–78; RESP 16–19; TEMP 36.4–36.9; O2SAT 91–94
--- NOTE | 2021-08-22 01:51 | USCV_ITS ---
Transthoracic Echo Fantasma Montalvo Age: 70 Gender: F : 1950 Exam Date: 08/22/2021 02:02 Ordering Phys: Ruchi Malloy MD Technologist: Carson Nesbitt Exam Location: [facility] [place] Indication: Angina BP: / HR: 70 Rhythm: Sinus Technical Quality: Adequate MEASUREMENTS (Male / Female) Normal Values 2D ECHO LV Diastolic Diameter PLAX 2.6 cm 4.2 - 5.9 / 3.9 - 5.3 cm LV Systolic Diameter PLAX 1.7 cm IVS Diastolic Thickness 1.1 cm 0.6 - 1.0 / 0.6 - 0.9 cm IVS Systolic Thickness 0.9 cm LVPW Diastolic Thickness 2.0 cm 0.6 - 1.0 / 0.6 - 0.9 cm LVPW Systolic Thickness 1.5 cm LVOT Diameter 1.9 cm LV Ejection Fraction 2D Teich 67.2 % LV Ejection Fraction MOD 2C 56.7 % LV Ejection Fraction 2C AL 61.5 % LA Diameter 3.8 cm LA Width 3.4 cm LA Height 4.8 cm RA Width 3.7 cm RA Height 4.5 cm Aorta at Sinotubular Diameter 1.8 cm M-MODE Aortic Annulus Diameter 2.0 cm LA Ao Ratio MM 2.2 MV E Point Septal Separation 0.6 cm DOPPLER AV Peak Velocity 182.0 cm/s LVOT Peak Velocity 115.0 cm/s AV Area Cont Eq vti 1.6 cm squared AV Area Cont Eq pk 1.7 cm squared MV Peak Velocity 111.0 cm/s MV Area PHT 4.5 cm squared Mitral E to A Ratio 1.2 MV E' Velocity 60.0 cm/s Mitral E to MV E' Ratio 10.3 Mitral E to LV E' Lateral Ratio 10.5 Mitral E to LV E' Septal Ratio 10.2 TR Peak Velocity 172.0 cm/s TR Peak Gradient 11.8 mmHg TR Mean Velocity 113.9 cm/s TR Mean Gradient 6.6 mmHg TR Velocity Time Integral 44.3 cm TV Peak E Velocity 103.0 cm/s Right Atrial Pressure 3.0 mmHg Pulmonary Artery Systolic Pressu 14.8 mmHg PV Peak Velocity 142.0 cm/s RV Acceleration Time 0.1 s RV Ejection Time 0.3 s RV AcT/ET 0.3 FINDINGS Left Ventricle Normal left ventricular size and systolic function, EF 59 %. Mild hypokinesia of the mid and apical septum. Right Ventricle The right ventricle is normal in size and function. Right Atrium The right atrium is normal in size. Left Atrium Mildly increased left atrial size. Mitral Valve Thickened mitral valve. Moderate mitral annular calcification. Trace mitral valve regurgitation. Aortic Valve Thickened aortic valve. Trace aortic valve regurgitation. Aortic valve sclerosis. Tricuspid Valve Mild tricuspid valve regurgitation. Pulmonic Valve Trace pulmonary valve regurgitation. Pericardium No pericardial effusion. Aorta Normal ascending aorta dimension. CONCLUSIONS Normal left ventricular size and systolic function, EF 59 %. Wall motion abnormalities as mentioned above.Mildly increased left atrial size. Thickened mitral valve. Moderate mitral annular calcification. Trace mitral valve regurgitation. Thickened aortic valve. Trace aortic valve regurgitation. Aortic valve sclerosis. Mild tricuspid valve regurgitation. Trace pulmonary valve regurgitation. There is no pericardial effusion. There are no intracardiac masses. Technically difficult study because of the poor ultrasonic window. Dr Emily Rome MD FACC (Electronically Signed) Final Date: 22 August 2021 06:56 S
[2021-08-22 05:34] LABS: Basophils # 0.1 10^3/uL (0.0-0.1); Basophils % 0.8 %; Eosinophils # 0.3 10^3/uL (0.0-0.8); Eosinophils % 3.6 %; Hematocrit 34.9 % (37.0-47.0); Hemoglobin 10.9 g/dL (11.5-15.3); Lymphocytes # 1.5 10^3/uL (0.8-4.8); Lymphocytes % 20.8 %; Mean Corpuscular HGB Conc 31.2 g/dL (30.0-36.0); Mean Corpuscular Hemoglobin 30.6 pg (28.0-34.0); Mean Platelet Volume 10.4 fL (7.4-10.4); Monocytes # 0.6 10^3/uL (0.2-0.9); Monocytes % 8.4 %; Neutrophils # 4.76 10^3/uL (1.8-7.7); Nucleated Red Blood Cells % 0 %; Platelet Count 189 10^3/cmm (130-400); Red Blood Count 3.56 10^6/uL (4.1-5.3); Red Cell Distribution Width 15.9 % (12.1-15.1); White Blood Count 7.2 10^3/uL (4.0-10.0)
[2021-08-22 05:52] LABS: Anion Gap 16.8 (5-19); Blood Urea Nitrogen 51 mg/dL (8-23); C Reactive Protein 11.6 mg/L (0.0-4.9); Calcium 8.9 mg/dL (8.5-10.5); Carbon Dioxide 23 mmol/L (22-29); Chloride 104 mmol/L (98-107); Glucose 164 mg/dL (65-115); Magnesium 1.8 mg/dL (1.7-2.3); Osmolality Calculated 307 mOsm/kg (285-295); Potassium 3.8 mmol/L (3.5-5.1); Sodium 140 mmol/L (136-145)
[2021-08-22 06:32] LABS: Glucose Point of Care 153 mg/dL (70-110)
--- NOTE | 2021-08-22 07:23 | ECG_ITS ---
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 Interpretive Statements NAME OF STUDY: LEXISCAN SESTAMIBI STRESS TEST INDICATION: Chest Pain PROCEDURE: At the baseline, the blood pressure was 149/76 mmHg, oxygen saturation 95% with a heart rate of 64 beats per minute. The electrocardiogram showed normal sinus rhythm, normal axis. Right bundle branch block. Nonspecific T wave inversion in inferolateral leads. The Lexiscan was infused over a period of 20 seconds. A total of 0.4 milligrams of Lexiscan was infused. The stress phase was continued for a total of 5 minutes. Heart rate at the end of the stress phase was 71 bpm, oxygen saturation 94% with a blood pressure of 142/62 mmHg. The EKG at the peak infusion revealed sinus rhythm with no significant ST-T wave changes. Sestamibi was injected 20 seconds after the Lexiscan infusion. Blood pressure at the end of the recovery phase was 139/60 mmHg, oxygen saturation 95% with a heart rate of 71 beats per minute. CONCLUSION: 1. No significant EKG changes with the LexiScan infusion. 2. No LexiScan induced chest pain or cardiac arrhythmia. 3. Normal blood pressure and heart rate response. 4. Sestamibi/sestamibi perfusion scan pending; see separate report. Electronically Signed On 08-22-2021 13:59:57 KEY MAKER by Patricia Morelos M.D. [id number]
--- NOTE | 2021-08-22 07:24 | NMCV_ITS ---
NM luis alfredo perf SPECT r/s* [id number] Fantasma Montalvo Age: 70 Gender: F : 1950 Exam Date: 08/22/2021 07:24 Ordering Phys: Emily Rome MD ([email or web address]) Technologist: JEY Byrne Exam Location: [facility] Indications: CHEST PAIN STRESS TEST Please see separate stress test report in [facility] for full findings IMAGE PROTOCOL Rest/Stress 1 Lexiscan Day Radiopharmaceutical Dose (mCi) Administration Site Administered by Rest: Tc-99m 11.0 IV JEY Coates Sestamibi Stress:Tc-99m 32.9 IV JEY Coates Sestamibi Rest: 22-Aug-2021 60 Discovery 630 Stress: 22-Aug-2021 30 Discovery 630 0.4mg Lexiscan. Supine position only as patient was unable to lay prone. SPECT RESULTS Technical Quality: Good Raw Data Analysis: Breast attenuation, diaphragmatic attenuation artifact Image Corrections: No attenuation or motion correction applied Summed Stress Score: 19 Summed Rest Score: 13 Summed Difference Score: 6 PERFUSION FINDINGS Large sized perfusion abnormality of moderate severity of entire inferior, basal to mid inferolateral and apical lateral watters at rest images with moderate reversibility in mid to apical inferolateral and apical inferior watters on stress images. FUNCTIONAL RESULTS (calculated via Gated SPECT) Stress Image LV EF (%): 68 Stress EDV (mL):91 TID: 1.21 Stress ESV (mL):29 FUNCTIONAL FINDINGS: The left ventricle is normal in size. Transient Ischemia Dilatation of 1.2. There is normal left ventricular systolic function. The left ventricular ejection fraction is normal with a value of 68%. There is normal left ventricular wall thickening with no regional wall motion abnormality. Normal end-diastolic end-systolic volumes. IMPRESSIONS 1. Large sized perfusion abnormality of moderate severity of entire inferior, basal to mid inferolateral and apical lateral watters with moderate reversibility in mid to apical inferolateral and apical inferior watters on supine stress images. 2. This may represent old myocardial infarction with moderate sathya-infarct ischemia in RCA/circumflex artery territory. 3. In absence of prone imaging and with no regional wall motion abnormality diaphragmatic attenuation artifact cannot be completely ruled out. 4. Transient ischemic dilation index mildly increased at 1.2. This may represent hypertensive response/subendocardial ischemia. 5. EKG portion of the study will be reported separately. Patricia Morelos MD (Electronically Signed) Final Date: 22 August 2021 15:36 S
--- NOTE | 2021-08-22 08:24 | PM.PN ---
Subjective Subjective: This morning patient is complaining of dull pain 2/10 however no active emesis, shortness of breath, she was asleep when I entered the room This plan for cardiac stress test, she is n.p.o. Appreciate cardiology recommendations Vitals/I&O/Wt Last Vital Signs Temp 97.9 F 08/22/21 07:22 Pulse 63 08/22/21 07:22 Resp 18 08/22/21 07:22 BP 123/54 08/22/21 07:22 Pulse Ox 94 08/22/21 07:22 08/21/21 08/22/21 08/22/21 22:59 06:59 14:59 Intake Total 340 / 340 0 / 340 Output Total 600 / 600 Balance 340 / 340 -600 / -260 Weight last 48 hrs Weight 99.11 kg Weight 97.522 kg Weight 107.955 kg Physical Exam Narrative: Patient is laying supine Saturating well on room air She was asleep Dull 2/10 pain Distended abdomen with obesity Awake and alert Nonfocal neuro exam No audible stridor or wheezing Data : 08/22/21 05:06 08/22/21 05:06 A&P Assessment and plan (1) Unstable angina: Status: Acute (2) Chronic kidney insufficiency: Status: Acute (3) Pacemaker: Status: Acute (4) Morbid obesity: Status: Acute (5) HTN (hypertension): Status: Acute Plan Unstable angina There is plan for cardiac stress test today as per cardiology recommendations She is n.p.o. Dull pain 2/10 Hemodynamically stable Chronic kidney disease baseline creatinine around 1.4 No acute exacerbation Full code Advance diet after stress test Further plan will be devised after her stress test Attestations Medical Necessity Statement*: Continue hospitalization Time Spent in Patient Care: 20min Coding Level of Care Code Acute Senior Net C Developer for g Fwd Diagnoses Unstable angina I20.0 Chronic kidney insufficiency N18.9 Pacemaker Z95.0 Morbid obesity E66.01 HTN (hypertension) I10
[2021-08-22] MEDS: isosorbide mononitrate ER 30 mg Tablet PO (08:31)
[2021-08-22] MEDS: levothyroxine 50 mcg Tablet PO (08:31)
[2021-08-22] MEDS: clopidogrel 75 mg Tablet PO (08:31)
--- NOTE | 2021-08-22 10:11 | PC.CHAP ---
Pastoral Care Encounter/Spiritual Assessment Type of Contact [] Declined college specialist visit [] Patient/Family/Request visit [] Outpatient visit [] Follow-up visit [] Physician referral [] Code/Alert [x] Routine visit [] Staff referral [] Actively dying [] Patient sleeping [] Family support [] [] Out of room [] Palliative care [] [] Receiving care in room [] Pre-surgical visit [] Trauma [] Long length of stay [] ICU visit [] Other: Relational/Emotional Strength [x] Patient feels connected with others/family/visitors/staff [] Distress [] Loneliness/isolation [] Abandonment Spirituality of Patient [x] Person of Shira [x] Attends Amish of their Shira [x] Believes in Prayer [] Reads Bible or Moravian materials [] There are Spiritual issues to be addressed Multimedia Services Manager Interventions [x] Prayer [x] Active listening [x] Non-anxious presence [x] Spiritual/emotional support [] Crisis/trauma care [] Spiritual counseling [] Bereavement support [] Provided bereavement packet [] Provided Bible/devotional materials [] Provided toy/stuffed animal, coloring book to patient or family member [] Provided Communion [] Anointing/[place] [] Salvation [x] Completed spiritual assessment [] Other: Impact on Illness or Injury [] Angry [] Fearful [] Anxious [] Often cries [] Exhaustion [] Unable to work [] Unable to attend taoism [] Unable to walk/stand [] Unable to read [] Unable to drive [] Unable to eat/drink [] Unable to sleep [] Unable to be with family [] Patient intubated [] Other: Summary Time spent with patient 10 min
[2021-08-22] MEDS: ondansetron 2 mg/ML SDV 2 mL 4 MG IVP (10:40)
[2021-08-22] MEDS: regadenoson 0.4 Mg/5 ml Syringe IVP (10:40)
[2021-08-22 12:42] LABS: Glucose Point of Care 205 mg/dL (70-110)
[2021-08-22] MEDS: insulin lispro 100 unit/1 mL SUBCUT (14:39)
[2021-08-22 17:25] LABS: Glucose Point of Care 79 mg/dL (70-110)
--- NOTE | 2021-08-22 18:00 | P.PN_ITS ---
Subjective Subjective: Chest pain somewhat reproducible left parasternal region. Medications: Reviewed: Yes Vitals/I&O/Wt Last Vital Signs Temp 97.5 F L 08/22/21 15:22 Pulse 65 08/22/21 15:22 Resp 17 08/22/21 15:22 BP 150/75 08/22/21 15:22 Pulse Ox 91 08/22/21 15:22 08/22/21 08/22/21 08/22/21 06:59 14:59 22:59 Intake Total 0 / 340 Output Total 600 / 600 Balance -600 / -260 Weight last 48 hrs Weight 218 lb 8 oz Weight 215 lb Weight 238 lb Physical Exam Narrative: GENERAL: morbidly obese woman laying in bed in no acute distress HEENT: No pallor or icterus. NECK: No JVD. No carotid bruit. CARDIOVASCULAR SYSTEM: S1-S2 regular. No murmur rubs or gallops. RESPIRATORY SYSTEM: Chest clear to auscultation. No wheezes rhonchi or rubs heard. ABDOMEN: Soft, nontender and nondistended. Normal bowel sounds present. EXTREMITIES: No cyanosis or edema. No signs of chronic venous insufficiency. RECORDS MANAGER: Patient is alert oriented ?3. No focal neurological deficits. Data : 08/22/21 05:06 08/22/21 05:06 A&P Assessment and plan (1) Left-sided chest pain: Chest pain possibly cardiac on presentation. However does seem to have musculoskeletal component with it. -No significant EKG changes. Lexiscan sestamibi myocardial perfusion imaging with old myocardial infarction with mild to moderate sathya-infarct ischemia in RCA/circumflex territory versus attenuation artifact. Normal LV function with no regional wall motion abnormality. -Patient is at high risk of developing contrast-induced nephropathy. -I discussed with patient possibility of medical management versus cardiac catheterization with risk of renal failure. -Patient does not seem to be inclined for cardiac catheterization. -I will increase her Imdur to 60 mg a.m. and 30 mg p.m. -Continue Plavix Based on how she does overnight may plan on discharge tomorrow. -Follow-up in 2 weeks with nurse practitioner. Status: Acute (2) Chronic kidney insufficiency: Patient has a high BUN/creatinine ratio. Status: Acute (3) Pacemaker: Patient has a dual-chamber permanent pacemaker. Pacemaker function was on be appropriate based on the most recent interrogation. Status: Acute (4) Morbid obesity: Status: Acute (5) Hypercholesterolemia: May continue on the current medications. Status: Acute (6) HTN (hypertension): Restart nifedipine. Status: Acute (7) Atrial fibrillation by electrocardiogram: Patient is currently in normal sinus rhythm. She is on long-term oral anticoagulation. May continue on the current treatment measures. Status: Acute Plan Thank you for the opportunity to eval this patient make this recommendation. Attestations Medical Necessity Statement*: Needs hospital stay for medication titration Coding Level of Care Code Acute Network Contract Manager for g Fwd Diagnoses Left-sided chest pain R07.9 Chronic kidney insufficiency N18.9 Pacemaker Z95.0 Morbid obesity E66.01 Hypercholesterolemia E78.00 HTN (hypertension) I10 Atrial fibrillation by electrocardiogram I48.91
[2021-08-22] MEDS: atorvastatin 40 mg Tablet 80 MG PO (20:10)
[2021-08-22] MEDS: gabapentin 100 mg Capsule PO (20:10)
[2021-08-22] MEDS: morphine 4 mg/mL SDV 1 mL 2 MG IVP (20:15)
[2021-08-22 20:59] LABS: Glucose Point of Care 210 mg/dL (70-110)
[2021-08-23] VITALS: BP 162/74; PULSE 73; RESP 19; TEMP 36.5; O2SAT 93
[2021-08-23 04:00] VITALS: BP 134/68; PULSE 64; RESP 18; TEMP 36.8; O2SAT 90
[2021-08-23 06:20] LABS: Glucose Point of Care 150 mg/dL (70-110)
[2021-08-23 06:22] LABS: Blood Urea Nitrogen 44 mg/dL (8-23); Calcium 8.8 mg/dL (8.5-10.5); Carbon Dioxide 18 mmol/L (22-29); Chloride 107 mmol/L (98-107); Glucose 139 mg/dL (65-115); Osmolality Calculated 297 mOsm/kg (285-295); Sodium 137 mmol/L (136-145)
[2021-08-23 06:25] LABS: Anion Gap 16.7 (5-19); Potassium 4.7 mmol/L (3.5-5.1)
[2021-08-23 07:14] VITALS: BP 152/70; PULSE 66; RESP 12; TEMP 37.1; O2SAT 94
[2021-08-23] MEDS: clopidogrel 75 mg Tablet PO (08:13)
[2021-08-23] MEDS: levothyroxine 50 mcg Tablet PO (08:13)
[2021-08-23] MEDS: NIFEdipine ER (24 hr) 30 mg Tablet PO (08:13)
[2021-08-23] MEDS: insulin lispro 100 unit/1 mL SUBCUT ×2 (08:13→11:40)
--- NOTE | 2021-08-23 10:07 | PM.DCS ---
Discharge Providers Date of Admission: 08/21/21 15:26 Date of Discharge: August 23, 2021 Attending Provider at Admission: Ruchi Malloy MD Attending Provider at Discharge: Ruchi Malloy MD Primary Care Provider: Betsy Nuno DO Diagnoses at Discharge Discharge Diagnosis (1) Left-sided chest pain: Status: Acute (2) Chronic kidney insufficiency: Status: Acute (3) Pacemaker: Status: Acute (4) Morbid obesity: Status: Acute (5) Hypercholesterolemia: Status: Acute (6) HTN (hypertension): Status: Acute (7) Atrial fibrillation by electrocardiogram: Status: Acute Reason for Visit Reason for Visit: SUBSTERNAL CHEST PAIN Hospital Course Hospital Course This is a consult note of Dr. Rome(cardiology was consulted for management evaluation of typical anginal symptoms.) Fantasma Montalvo is a 70 year old female is admitted to hospital with complaints of prolonged episode of chest pain.? This patient is known to have three-vessel coronary disease.? She had a PCI of the RCA and diagonal lesion in August 2019.? Cardiology consult is requested for further cardiac evaluation recommendations. According to the patient, she was in her baseline state of health up until this morning when she started having left sided chest pain.? The pain was confined to the left upper part of the chest, radiated to the left shoulder, to the left side of the neck and also to the back.? The intensity of the pain was mild to moderate.? The pain has been waxing and waning.? She been having chest pain for several hours.? Currently the pain is almost gone.? She may have some nausea.? No associated palpitation, dizziness or syncopal episode.? No fever or chills.? No cough.? No unusual shortness of breath.? She has had baseline shortness of breath with activities. Patient is known to have chronic intermittent atrial fibrillation.? She is on long-term oral anticoagulation.? 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 She also is known to have high blood pressure, dyslipidemia, type 2 diabetes, chronic kidney disease, hypothyroidism and degenerative joint disease. She has been having some frequent bowel movements for the last couple of days.? No fever or chills.? No cough. She had echocardiogram last year and was found to have mild aortic valve stenosis.? Her LV ejection fraction was within normal limits.? The findings are as follows.? She also is known to have mild plaque buildup in the carotid arteries Hospital course For typical anginal symptoms considering established coronary artery disease, Cardiology recommended stress test ?Lexiscan sestamibi myocardial perfusion imaging with old myocardial infarction with mild to moderate sathya-infarct ischemia in RCA/circumflex territory versus attenuation artifact.? Normal LV function with no regional wall motion abnormality Considering chronic kidney disease she is high risk for contrast-induced nephropathy, patient opted for medical management however all the risk factors were explained to the patient by process control programmer regarding indication of cardiac catheterization and why there is a risk of worsening kidney function needing dialysis, patient opted for medical management, Dr. Morelos recommended increasing Imdur to 60 mg in a.m. and 30 mg p.m. Her nifedipine was continued at the time of discharge. Recent pacemaker interrogation unremarkable. Patient will be discharged home, she does have a walker at home, meds to beds arranged. Patient is hemodynamically stable at the time of discharge. Saturating well on room air Patient to see Catrachita Caraballo in 2 weeks. Physical Exam Narrative: Patient was saturating well on room air No active chest pain Reproducible left-sided pain Distended abdomen visceral obesity Nonfocal neuro exam No active focal deficit Present no Morbid obesity Charcot foot Patient uses a walker for ambulation Discharge Data Studies Completed and Pending Completed Studies During Hospitalization Category Date Time Status Cardiac Stress Test MIBI [Sestamibi Stress Test Request Exams 08/22/21 07:23 Completed ] Routine XR chest 1V portable [id number] Urgent Exams 08/21/21 13:13 Completed NM luis alfredo perf SPECT r/s* [id number] Routine Nuc Med 08/22/21 07:24 Completed CV. echo complete* [id number] Routine Ultrasound 08/22/21 01:51 Completed Radiology Impressions Chest X-Ray 08/21/21 13:13 IMPRESSION: No acute cardiopulmonary abnormality identified. Laboratory Results WBC 7.2 10^3/uL (4.0-10.0) 08/22/21 05:06 RBC 3.56 10^6/uL (4.1-5.3) L 08/22/21 05:06 Hgb 10.9 g/dL (11.5-15.3) L 08/22/21 05:06 Hct 34.9 % (37.0-47.0) L 08/22/21 05:06 MCV 98.0 fl (81-99) D 08/22/21 05:06 MCH 30.6 pg (28.0-34.0) 08/22/21 05:06 MCHC 31.2 g/dL (30.0-36.0) D 08/22/21 05:06 RDW 15.9 % (12.1-15.1) H 08/22/21 05:06 Plt Count 189 10^3/cmm (130-400) 08/22/21 05:06 MPV 10.4 fL (7.4-10.4) 08/22/21 05:06 Neut % (Auto) 66.0 % 08/22/21 05:06 Lymph % (Auto) 20.8 % 08/22/21 05:06 [place] % (Auto) 8.4 % 08/22/21 05:06 Eos % (Auto) 3.6 % 08/22/21 05:06 Baso % (Auto) 0.8 % 08/22/21 05:06 Neut # (Auto) 4.76 10^3/uL (1.8-7.7) 08/22/21 05:06 Lymph # (Auto) 1.5 10^3/uL (0.8-4.8) 08/22/21 05:06 [place] # (Auto) 0.6 10^3/uL (0.2-0.9) 08/22/21 05:06 Eos # (Auto) 0.3 10^3/uL (0.0-0.8) 08/22/21 05:06 Baso # (Auto) 0.1 10^3/uL (0.0-0.1) 08/22/21 05:06 Nucleated RBC % (auto) 0 % 08/22/21 05:06 Nucleated RBCs # 0.0 /100WBC 08/22/21 05:06 Sodium 137 mmol/L (136-145) 08/23/21 04:20 Potassium 4.7 mmol/L (3.5-5.1) 08/23/21 04:20 Chloride 107 mmol/L (98-107) 08/23/21 04:20 Carbon Dioxide 18 mmol/L (22-29) L 08/23/21 04:20 Anion Gap 16.7 (5-19) 08/23/21 04:20 BUN 44 mg/dL (8-23) H 08/23/21 04:20 Creatinine 1.3 mg/dL (0.5-0.9) H 08/23/21 04:20 GFR Calculation Not Reportable 08/23/21 04:20 Glucose 139 mg/dL (65-115) H 08/23/21 04:20 POC Glucose 150 mg/dL (70-110) H 08/23/21 05:55 Calculated Osmolality 297 mOsm/kg (285-295) H 08/23/21 04:20 Calcium 8.8 mg/dL (8.5-10.5) 08/23/21 04:20 Magnesium 1.8 mg/dL (1.7-2.3) 08/22/21 05:06 Troponin T Baseline 37 ng/L (0-10) H 08/21/21 12:50 Troponin T 120 Minute 33.35 ng/L (0-10) H 08/21/21 15:17 Delta Troponin T -3.65 ABS# (0-10) L 08/21/21 15:17 Troponin T Hi Sens 6Hr 36.34 ng/L (0-10) H 08/21/21 19:34 Troponin T Hi Sens 6Hr Delta -0.66 ng/L (0-12) L 08/21/21 19:34 C-Reactive Protein 11.6 mg/L (0.0-4.9) H 08/22/21 05:06 Vitals Last Vital Signs Temp 98.7 F 08/23/21 07:14 Pulse 66 08/23/21 07:14 Resp 12 08/23/21 07:14 BP 152/70 08/23/21 07:14 Pulse Ox 94 08/23/21 07:14 Discharge Plan Discharge Patient Disposition: Home Condition: Stable Prescriptions: New isosorbide mononitrate 60 mg tablet extended release 24 hr 60 mg PO .breakfast Qty: 60 0RF isosorbide mononitrate 30 mg tablet extended release 24 hr 30 mg PO QPM Qty: 60 0RF Continued insulin glargine 100 unit/mL (3 mL) insulin pen 12 unit SUBCUT BEDTIME@20 0RF sennosides-docusate sodium 8.6-50 mg tablet 1 tab PO DAILY PRN (Reason: Constipation) 0RF methenamine hippurate 1 gram tablet 1 g PO BID Qty: 60 12RF Rx Instructions: Take 1000 mg of vitamin C with each dose of methenamine insulin aspart U-100 [Novolog Flexpen U-100 Insulin] 100 unit/mL (3 mL) Insulin Pen See Rx Instructions .ROUTE .COMPLEX 0RF Rx Instructions: PER SLIDING SCALE nifedipine 30 mg tablet extended release 30 mg PO DAILY@08 0RF levothyroxine 50 mcg tablet 50 mcg PO DAILY@08 0RF bumetanide 1 mg tablet 2 mg PO DAILY@08 0RF Hold Instructions: Resume on 09/25/20. resume on friday nitroglycerin [Nitrostat] 0.4 mg Tablet, Sublingual 0.4 mg SUBLINGUAL Q5M PRN (Reason: Chest Pain) 0RF Dexilant 60 mg capsule,biphase delayed releas 60 mg PO DAILY@08 0RF Label Comments: Not sure if patient is taking sertraline 25 mg tablet 25 mg PO DAILY@08 0RF Label Comments: Not sure if patient is taking Eliquis 5 mg tablet 2.5 mg PO BID@08,20 0RF clopidogrel 75 mg tablet 75 mg PO DAILY@08 0RF gabapentin 100 mg capsule 100 mg PO BEDTIME@20 0RF rosuvastatin 20 mg tablet 20 mg PO BEDTIME@20 0RF glipizide 10 mg tablet 10 mg PO BID 0RF potassium chloride 10 mEq tablet extended release 10 meq PO DAILY@08 0RF Vitamin C 1,000 mg Tablet 1,000 mg PO BID 0RF fentanyl 25 mcg/hr patch 72 hour 25 mcg transdermal Q72H 0RF Discontinued isosorbide mononitrate 30 mg tablet extended release 24 hr 30 mg PO BID@08,20 0RF Discharge Orders: Discharge Order (Routine); Ordered 08/23/21 Ordered By: Ruchi Malloy Referrals: Catrachita Caraballo FNP [Nurse Practitioner] - 2 weeks Betsy Nuno DO [Primary Care Provider] - Patient Instructions: Opioid Safety Discharge Attestations Time Spent in Discharge Care*: less than 30 min Status at Discharge: Cognitive status at discharge: cognitively intact, Behavioral status at discharge: cooperative, Quality Metrics Clinical Quality Measures [ No reported AMI, CVA or VTE this stay] Coding Level of Care Code Acute Chg FW DC note Diagnoses Left-sided chest pain R07.9 Chronic kidney insufficiency N18.9 Pacemaker Z95.0 Morbid obesity E66.01 Hypercholesterolemia E78.00 HTN (hypertension) I10 Atrial fibrillation by electrocardiogram I48.91
--- NOTE | 2021-08-23 10:20 | PC.CHAP ---
Pastoral Care Encounter/Spiritual Assessment Type of Contact [] Declined emergency response technician visit [] Patient/Family/Request visit [] Outpatient visit [] Follow-up visit [] Physician referral [] Code/Alert [x] Routine visit [] Staff referral [] Actively dying [] Patient sleeping [] Family support [] [] Out of room [] Palliative care [] [x] Receiving care in room [] Pre-surgical visit [] Trauma [] Long length of stay [] ICU visit [] Other: Relational/Emotional Strength [x] Patient feels connected with others/family/visitors/staff [] Distress [] Loneliness/isolation [] Abandonment Spirituality of Patient [x] Person of Shira [] Attends Sabianist of their Shira [x] Believes in Prayer [] Reads Bible or Scientology materials [] There are Spiritual issues to be addressed [place] Interventions [x] Prayer [x] Active listening [x] Non-anxious presence [x] Spiritual/emotional support [] Crisis/trauma care [x] Spiritual counseling [] Bereavement support [] Provided bereavement packet [] Provided Bible/devotional materials [] Provided toy/stuffed animal, coloring book to patient or family member [] Provided Communion [] Anointing/[place] [] Salvation [x] Completed spiritual assessment [] Other: Impact on Illness or Injury [] Angry [] Fearful [x] Anxious [] Often cries [] Exhaustion [] Unable to work [] Unable to attend methodist [] Unable to walk/stand [] Unable to read [] Unable to drive [] Unable to eat/drink [] Unable to sleep [] Unable to be with family [] Patient intubated [] Other: Summary in for acheck up some change in meds has good attitude going home Time spent with patient 10 mins
[2021-08-23 10:53] VITALS: BP 159/60; PULSE 63; RESP 13; TEMP 37.1; O2SAT 90
[2021-08-23 11:43] LABS: Glucose Point of Care 207 mg/dL (70-110)
[2021-08-23 13:20] VITALS: BP 144/72; PULSE 68; RESP 18; TEMP 36.7; O2SAT 95
--- NOTE | 2021-08-23 13:22 | PC.NURSE ---
Discharge education reviewed with patient and family members at bedside. All questions answered.
== END 2021-08-23 13:21 | disposition home or self-care (01) | DRG 303 ==
LOC: ER 14:52 → MEDSURG 18:28
PROVIDERS: Admitting Provider Internal Medicine; Emergency Provider Emergency Medicine; PCP Family Medicine; Visit Provider Internal Medicine
DX: I25.110 Atherosclerotic heart disease of native coronary artery with unstable angina pectoris (principal); I13.0 Hypertensive heart and chronic kidney disease with heart failure and stage 1 through stage 4 chronic kidney disease, or unspecified chronic kidney disease; I50.30 Unspecified diastolic (congestive) heart failure; I48.20 Chronic atrial fibrillation, unspecified; Z68.41 Body mass index [BMI] 40.0-44.9, adult; Z95.5 Presence of coronary angioplasty implant and graft; N18.9 Chronic kidney disease, unspecified; E11.22 Type 2 diabetes mellitus with diabetic chronic kidney disease; I35.0 Nonrheumatic aortic (valve) stenosis; M19.90 Unspecified osteoarthritis, unspecified site; K21.9 Gastro-esophageal reflux disease without esophagitis; E78.00 Pure hypercholesterolemia, unspecified; E78.5 Hyperlipidemia, unspecified; Z87.440 Personal history of urinary (tract) infections; Z95.0 Presence of cardiac pacemaker; Z87.891 Personal history of nicotine dependence; I27.20 Pulmonary hypertension, unspecified; E66.01 Morbid (severe) obesity due to excess calories; E03.9 Hypothyroidism, unspecified; I25.2 Old myocardial infarction; Z79.4 Long term (current) use of insulin; Z79.84 Long term (current) use of oral hypoglycemic drugs; Z79.01 Long term (current) use of anticoagulants; Z79.02 Long term (current) use of antithrombotics/antiplatelets
CPT/HCPCS: 36415; 36416; 71045; 78452; 80048; 82962; 83735; 84484; 85025; 86140; 93005; 93306; 96372; 96374; 99285; A9500; J1815; J2270; J2405; J2785

== ENCOUNTER 2021-09-13 08:54 | Inpatient (IN) | payer MEDICARE, MEDICAID, SELFPAY ==
[2021-09-13] VITALS (15 sets, daily range): BP systolic 118–167; BP diastolic 64–94; PULSE 58–99; RESP 5–20; TEMP 36.2; O2SAT 70–96; BMI 38.3; BMI 41.8
--- NOTE | 2021-09-13 09:04 | ED_ITS ---
HPI - Fall General: Chief Complaint: Fall Stated Complaint: FALL BACK PAIN, CHEST PAIN Time Seen by Provider: 09/13/21 08:55 Source: patient Mode of arrival: EMS Limitations: no limitations History of Present Illness: 70-year-old female presents emergency room with complaints of back pain and chest pain. She reports having slipped out of the chair to the floor. She denies striking her head she did not lose consciousness she did not really significantly fall. She did receive 324 of aspirin and 2 n itro while in route via EMS states her chest pain is better. She was at rest when the chest pain began. She is mildly confused as well. complaint: fall Onset (ago): minute(s) Fall witnessed: no PFSH ED PFSH: Medical History Anticoagulation adequate with anticoagulant therapy Aortic stenosis Atrial fibrillation by electrocardiogram CAD (coronary artery disease) CHF (congestive heart failure) Chronic kidney insufficiency Dental caries Diabetes DJD (degenerative joint disease) Gastroenteritis GERD (gastroesophageal reflux disease) HTN (hypertension) Hypercholesterolemia Hyperlipidemia Morbid obesity Recurrent UTI Long history of recurrent UTIs suspicious for CHRONIC CYSTITIS. ESBL E. coli documented in 2019. Renal stone Rhabdomyolysis Sinus pause Urinary incontinence Surgical History H/O colonoscopy yrs ago History of cardiac catheterization History of hernia repair History of hip surgery History of hysterectomy History of knee surgery History of sinus surgery History of tonsillectomy History of umbilical hernia repair Pacemaker Status post placement of cardiac pacemaker Family History Father , in his 60's Lung disease Mother , 99 Hypertension Other Diabetes Stroke Denies family history of CAD (coronary artery disease) Clotting disorder Dementia Chronic kidney disease (CKD) Anesthesia complication Bleeding disorder Social History Quit status (tobacco): has quit using tobacco Former quit date comment: Smoking in her 20s Alcohol intake: never Caregiver/support person: Yes (Home health services Friday) Lives independently: Yes Housing: House Marital status: Current occupational status: retired History of recent travel: No Current gender identity: Female Physical Exam Const: COMMON NORMALS: no acute distress GENERAL APPEARANCE: cooperative a nd comfortable ORIENTATION/CONSCIOUSNESS: Yes awake, Yes oriented to person, Yes oriented to place and Yes oriented to time HENMT: COMMON NORMALS: normocephalic, atraumatic and hearing grossly normal bilaterally HEAD & SCALP: normocephalic and atraumatic Neck/C-Spine: COMMON NORMALS: no JVD Resp: COMMON NORMALS: normal respiratory effort, No retractions, No use of accessory muscles and clear to auscultation bilaterally AUSCULTATION: clear to auscultation bilaterally Cardio: COMMON NORMALS: no JVD, regular rate, regular rhythm and No murmurs present (Cardio) RATE: regular rate RHYTHM: regular rhythm GI: COMMON NORMALS: Soft to palpation and No hepatosplenomegaly present AU SCULTATION: Yes normoactive bowel sounds PALPATION: Yes Soft to palpation, No Tenderness to palpation present (GI), No Guarding due to palpation present (GI) and Yes No hepatosplenomegaly present Extremity: COMMON NORMALS: normal to inspection, capillary refill normal, no clubbing, cyanosis or edema, no calf tenderness and no pedal edema Neuro: SENSORIUM/ORIENTATION: Yes oriented to person, Yes oriented to place and Yes oriented to time Skin: COMMON NORMALS: no rashes or lesions noted GENERAL SKIN EXAM: no rashes or lesions noted Course Vital Signs: Vital signs: Vital Signs Temperature 97.1 F L 09/13/21 08:57 Pulse Rate 99 09/13/21 08:57 Respiratory Rate 16 09/13/21 08:57 Pulse Oximetry 94 09/13/21 08:57 MDM - Fall Medical Decision Making CT head is unremarkable. EKG did not show any acute changes. She has known coronary artery disease elected a previous hospitalization earlier this month treated medically. She is responding to nitro. In the setting of known coron deandre disease with reversible lesions shown on the Lexiscan sestamibi stress test will admit her for reevaluation of medical management reconsideration of angiography cardiology consulted Medical Records I reviewed the patient's medical records. Lab Data I reviewed the patient's lab results. : 09/13/21 09:28 09/13/21 11:[address] 09/13/21 09:13 IMPRESSION: 1. No acute intracranial hemorrhage or edema. 2. Mild atrophy with moderate to severe chronic white matter small vessel ischemic disease. Laboratory Results WBC 15.7 10^3/uL (4.0-10.0) H 09/13/21 09: RBC 4.03 10^6/uL (4.1-5.3) L 09/13/21 09: Hgb 12.6 g/dL (11.5-15.3) 09/13/21 09: Hct 38.6 % (37.0-47.0) 09/13/21 09: MCV 95.8 fl (81-99) 09/13/21 09: MCH 31.3 pg (28.0-34.0) 09/13/21 09: MCHC 32.6 g/dL (30.0-36.0) 09/13/21 09: RDW 15.7 % (12.1-15.1) H 09/13/21 09: Plt Count 213 10^3/cmm (130-400) 09/13/21 09: MPV 10.5 fL (7.4-10.4) H 09/13/21 09: Neut % (Auto) 84.1 % 09/13/21 09: Lymph % (Auto) 6.6 % 09/13/21 09: [place] % (Auto) 8.0 % 09/13/21 09: Eos % (Auto) 0.1 % 09/13/21 09: Baso % (Auto) 0.6 % 09/13/21 09: Neut # (Auto) 13.15 10^3/uL (1.8-7.7) H 09/13/21 09: Lymph # (Auto) 1.0 10^3/uL (0.8-4.8) 09/13/21 09: [place] # (Auto) 1.3 10^3/uL (0.2-0.9) H 09/13/21: Eos # (Auto) 0.0 10^3/uL (0.0-0.8) 09/13/21 09: Baso # (Auto) 0.1 10^3/uL (0.0-0.1) 09/13/21 09: Nucleated RBC % (auto) 0 % 09/13/21 09: Nucleated RBCs # 0.0 /100WBC 09/13/21 09:28 Sodium 134 mmol/L (136-145) L 09/13/21 11:32 Potassium 3.5 mmol/L (3.5-5.1) 09/13/21 11:32 Chloride 99 mmol/L (98-107) 09/13/21 11:32 Carbon Dioxide 20 mmol/L (22-29) L 09/13/21 11:32 Anion Gap 18.5 (5-19) 09/13/21 11:32 BUN 53 mg/dL (8-23) H 09/13/21 11:32 Creatinine 1.5 mg/dL (0.5-0.9) H 09/13/21 11:32 GFR Calculation Not Reportable 09/13/21 11:32 Glucose 241 mg/dL (65-115) H 09/13/21 11:32 Calculated Osmolality 300 mOsm/kg (285-295) H 09/13/21 11:32 Calcium 9.4 mg/dL (8.5-10.5) 09/13/21 11:32 Total Bilirubin 0.7 mg/dL (0.15-1.2) 09/13/21 11:32 GGT 11 U/L (5-36) 09/13/21 09:28 AST 22 U/L (0-32) 09/13/21 11:32 ALT 17 U/L (0-33) 09/13/21 11:32 Alkaline Phosphatase 131 IU/L (35-105) H 09/13/21 11:32 Troponin T Baseline 33 ng/L (0-10) H 09/13/21 09:28 Troponin T 120 Minute 34.34 ng/L (0-10) H 09/13/21 11:32 Delta Troponin T 1.34 ABS# (0-10) 09/13/21 11:32 C-Reactive Protein 12.5 mg/L (0.0-4.9) H 09/13/21 09:28 Total Protein 7.0 g/dL (6.6-8.7) 09/13/21 11:32 Albumin 3.8 g/dL (3.5-5.2) 09/13/21 11:32 Globulin 3.2 g/dL (1.3-4.6) 09/13/21 11:32 Lipase 22 U/L (13-60) 09/13/21 09:28 Procalcitonin 0.09 ng/mL (0-0.5) 09/13/21 09:28 Urine Color Yellow (Yellow) 09/13/21 11:55 Urine Appearance Hazy (CLEAR) A 09/13/21 11:55 Urine pH 6 (5-7) 09/13/21 11:55 Ur Specific [place] 1.010 (1.005-1.030) 09/13/21 11:55 Urine Protein 1+ (Negative) H 09/13/21 11:55 Urine Glucose (UA) 2+ (Normal) H 09/13/21 11:55 Urine Ketones Negative (Negative) 09/13/21 11:55 Urine Blood 3+ (Negative) H 09/13/21 11:55 Urine Nitrate Negative (Negative) 09/13/21 11:55 Urine Bilirubin Neg (Negative) 09/13/21 11:55 Urine Urobilinogen Neg mg/dL (Negative) 09/13/21 11:55 Ur Leukocyte Esterase Negative (Negative) 09/13/21 11:55 Urine RBC 0-4 /hpf (0-2) H 09/13/21 11:55 Urine WBC 0-4 /hpf (0-5) H 09/13/21 11:55 Ur Squamous Epith Cells 5-10 /hpf (0-5) H 09/13/21 11:55 Amorphous Sediment Not Reportable 09/13/21 11:55 Urine Bacteria 4+ /hpf (NONE) H 09/13/21 11:55 Discharge Plan Discharge Patient Disposition: Admitted As Inpatient Clinical Impression: Angina at rest, Diabetes, Heart failure with preserved ejection fraction Condition: Stable Prescriptions: No Action Lantus Solostar U-100 Insulin 100 unit/mL (3 mL) insulin pen 12 unit SUBCUT QAM 0RF sennosides-docusate sodium 8.6-50 mg tablet 1 tab PO DAILY PRN (Reason: Constipation) 0RF methenamine hippurate 1 gram tablet 1 g PO BID Qty: 60 12RF Rx Instructions: Take 1000 mg of vitamin C with each dose of methenamine insulin aspart U-100 [Novolog Flexpen U-100 Insulin] 100 unit/mL (3 mL) Insulin Pen See Rx Instructions .ROUTE .COMPLEX 0RF Rx Instructions: PER SLIDING SCALE (max 60 units per day) nitroglycerin [Nitrostat] 0.4 mg Tablet, Sublingual 0.4 mg SUBLINGUAL Q5M PRN (Reason: Chest Pain) 0RF Dexilant 60 mg capsule,biphase delayed releas 60 mg PO DAILY@08 0RF Label Comments: Not sure if patient is taking sertraline 25 mg tablet 25 mg PO DAILY 0RF clopidogrel 75 mg tablet 75 mg PO DAILY@08 0RF gabapentin 100 mg capsule 100 mg PO BEDTIME@20 0RF glipizide 10 mg tablet 10 mg PO BID 0RF potassium chloride 10 mEq tablet extended release 10 meq PO DAILY@08 0RF ascorbic acid (vitamin C) [Vitamin C] 1,000 mg Tablet 1,000 mg PO BID 0RF fentanyl 25 mcg/hr patch 72 hour 25 mcg transdermal Q72H 0RF isosorbide mononitrate 30 mg tablet extended release 24 hr 30 mg PO QPM Qty: 60 0RF bumetanide 2 mg tablet 2 mg PO QAM 0RF Eliquis 2.5 mg tablet 2.5 mg PO BID 0RF isosorbide mononitrate 60 mg tablet extended release 24 hr 60 mg PO QAM 0RF nifedipine 30 mg tablet extended release 24 hr 30 mg PO QAM 0RF sertraline 50 mg tablet 50 mg PO DAILY 0RF Referrals: Betsy Nuno DO [Primary Care Provider] - Coding Level of Care Code ED Nuisance Animal Damage Control Agent for Chg Fwd Exam Comprehensive
--- NOTE | 2021-09-13 09:13 | CT_ITS ---
WS: [id number] CT HEAD NONCONTRAST HISTORY: Confusion TECHNIQUE: Contiguous axial imaging performed through the brain in 2.5 mm imaging. Bone and soft tiss ue windows. Sagittal and coronal reformats reviewed. All CT scans at [facility] use at least one of these dose optimization techniques: automated exposure control; mA and/or kV adjustment per pa tient size (includes targeted exams where dose is matched to clinical indication); or iterative recon struction. DLP: 849.33 mGy.cm COMPARISON: 09/19/2020 No acute intracranial hemorrhage, midline shift or mass effect. Mild atrophy with moderate to severe small vessel ischemic changes throughout the white matter. Prior lacunar infarcts in the RIGHT [place] radiata. Ventricles: Normal size with no hydrocephalus. No inferior displacement of cerebellar tonsils. Paranasal sinuses: As visualized are clear. Mastoid air cells: Well pneumatized. Calvarium and scalp: Skull is intact with no soft tissue edema or swelling. CT/CT head wo con* 12006 IMPRESSION: 1. No acute intracranial hemorrhage or edema. 2. Mild atrophy with moderate to severe chronic white matter small vessel isch emic disease.
--- NOTE | 2021-09-13 09:13 | ECG_ITS ---
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 Measurements Intervals [place] Rate: 103 P: 253 IA: 196 QRS: 65 QRSD: 132 T: -9 QT: 386 QTc: 506 Interpretive Statements SINUS TACHYCARDIA RIGHT BUNDLE BRANCH BLOCK Compared to ECG 08/21/2021 13:53:37 Sinus rhythm no longer present First degree AV block no longer present Indeterminate axis no longer present Myocardial infarct finding no longer present Electronically Signed On 09-14-2021 11:14:14 CDT by Patricia Morelos M.D. [id number]
[2021-09-13 10:44] LABS: Troponin(5th) Baseline 33 ng/L (0-10)
--- NOTE | 2021-09-13 10:44 | PC.PHAR ---
PT STATES SHE HAS HOME HEALTH FROM [facility]-PT AND PTS FAMILY STATES THEY ARE UNSURE OF THE NAME-CALLED [facility],AND [facility] NONE OF THEM SET UP THE PTS MEDICATIONS-PT WAS DISCHARGED FROM [facility] ON 08/23/21-LEVOTHYROXINE 50MCG DAILY WAS ENTERED ON PTS MED LIST ON 08/21/21 RX WAS LAST FILLED 09/02/2020 90D/S-ROSUVASTATIN 20MG HS WAS ENTERED ON PTS MED LIST ON 08/21/21 RX WAS LAST FILLED 06/21/2020 30D/S-PT STATES SHE IS UNSURE IF SHE TAKES THOSE MEDICATIONS-RX WRITTEN ON 08/23/21 FOR ISOSORBIDE MON ER 30MG QPM AND 60MG QAM [facility] STATES NEVER PICKED UP EXT MED HISTORY SHOWS 30MG BID LAST FILLED 08/24/21 90D/S-
--- NOTE | 2021-09-13 11:13 | ECG_ITS ---
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 Measurements Intervals [place] Rate: 89 P: 86 MI: 257 QRS: 70 QRSD: 131 T: -6 QT: 391 QTc: 477 Interpretive Statements SINUS RHYTHM WITH FIRST DEGREE AV BLOCK RIGHT BUNDLE BRANCH BLOCK [120+ ms QRS DURATION, UPRIGHT V1, 40+ ms S IN I/aVL/V4/V5/V6] Compared to ECG 09/13/2021 09:06:27 First degree AV block now present Sinus tachycardia no longer present Electronically Signed On 09-14-2021 13:50:16 CDT by Patricia Morelos M.D. [email or web address] Corporationhighland community hospitalAbsolute Commerceohio state [facility].[email or web address]/store/[id number]
--- NOTE | 2021-09-13 11:50 | PC.NURSE ---
PT DIAPER CHANGED FOR INCONTINENCE OF URINE.
[2021-09-13 12:10] LABS: Troponin 5 2HR 34.34 ng/L (0-10)
[2021-09-13 12:11] LABS: Troponin 5 2HR Delta 1.34 ABS# (0-10)
[2021-09-13 12:20] LABS: Add Urine Microscopic? YES; Bilirubin Urine Neg (Negative); Blood Urine 3+ (Negative); Glucose Urine UA 2+ (Normal); Ketones Urine Negative (Negative); Leukocyte Esterase Urine Negative (Negative); Nitrate Urine Negative (Negative); Protein Urine 1+ (Negative); Urine Appearance Hazy (CLEAR); Urine Color Yellow (Yellow); Urobilinogen Urine Neg (Negative); pH Urine 6 (5-7)
[2021-09-13 12:21] LABS: Add Urine Culture? Yes; Bacteria Urine 4+ /hpf; RBC Urine 0-4 /hpf (0-2); WBC Urine 0-4 /hpf (0-5)
--- NOTE | 2021-09-13 12:45 | PC.NURSE ---
PT DIAPER CHANGED FOR INCONTINENCE OF URINE.
--- NOTE | 2021-09-13 13:25 | US_ITS ---
WS: [id number] RIGHT UPPER QUADRANT ULTRASOUND HISTORY: RUQ pain COMPARISON: 09/20/2020 Liver: 13.5 cm in length. Normal size liver with mild hepatic steatosis. Portal Vein: Normal hepatopetal flow with monophasic waveform. Gallbladder: Well distended gallbladder with numerous stones layering. No pericholecystic fluid. CBD: 0.6 cm Pancreas: Normal size and echogenicity. Right kidney: 9.0 cm in length. Normal size and echogenicity. No hydronephrosis or mass. Aorta and IVC: Unremarkable abdominal aorta and IVC. No ascites. US/US gall bladder 38884 IMPRESSION: 1. Quality of this examination is suboptimal due to body habitus. 2. Cholelithiasis without evidence for acute cholecystitis. 3. Normal bile duct.
--- NOTE | 2021-09-13 13:38 | P.HP_ITS ---
Providers/Chief Complaint Primary Care Provider: Betsy Nuno DO Chief Complaint: FALL BACK PAIN, CHEST PAIN History of Present Illness Fantasma Montalvo is a 70 year old female with established history of insulin- dependent type 2 diabetes mellitus, coronary disease EF 60% diastolic CHF, mild aortic valve stenosis, mild pulmonary hypertension, atrial fibrillation on Eliquis who presents [facility] due to complaints of chest pain patient. Patient recently presents [facility] for chest pain, she had a cardiac stress test which showed mild to moderate sathya-infarct ischemia in RCA/circumflex territory versus additionally artifact, normal LV function with no regional wall motion abnormalities. Given her CKD, risk of contrast-induced nephropathy, patient elected medical management. Her Imdur dose was increased, recent pacemaker interrogation was unremarkable. Patient returns to [facility] due to chest pain, started at 7 AM, left-sided, did not radiate to her shoulder this time, no shortness of breath, pressure squeezing-like pain. She also complained of right upper quadrant pain. Her blood work is pending, but I was called as her troponin was 33, 2 hours 34.3, EKG showing sinus tac hycardia, Dr. Rome has been consulted Review of Systems Const: Denies: fever(s), chills, fatigue or malaise Eyes: Denies: change in vision or blurry vision ENMT: Denies: nasal congestion Card: Reports: chest pain; Denies: palpitations, irregular heart rhythm, edema, lightheadedness or syncope Resp: Denies: dyspnea, productive cough, non-productive cough or wheezing GI: Reports: abdominal pain; Denies: nausea, vomiting, hematemesis, diarrhea, constipation, hematochezia or melena : Denies: flank pain, dysuria or urinary frequency Musc: Denies: back pain Skin/Breast: Denies: rash Neuro: Denies: headache(s), dizziness or vertigo Endo: Denies: polyuria or polydipsia Medications/Allergies Home Medications Medication Instructions Recorded Confirmed Last Taken Type insulin glargine 100 unit/mL (3 12 unit SUBCUT QAM ml 11/12/19 09/13/2108/20 History mL) subcutaneous pen (Lantus Solostar U-100 Insulin) sennosides 8.6 mg-docusate sodium 1 tab PO DAILY PRN tab 11/12/19 09/13/21 02/27/20 History 50 mg tablet potassium chloride 10 mEq 10 meq PO DAILY@01/05/20 09/13/21 08/21/21 History tablet,extended release insulin aspart U-100 100 unit/mL See Rx Instructions .ROUTE .COMPLEX 05/25/20 09/13/21 12/06/20 History (3 mL) subcutaneous pen (Novolog Flexpen U-100 Insulin aspart) nitroglycerin 0.4 mg sublingual 0.4 mg SUBLINGUAL Q5M PRN 05/25/20 09/13/21 Unknown History tablet (Nitrostat) clopidogrel 75 mg tablet 75 mg PO DAILY@10/31/20 09/13/21 08/21/21 History dexlansoprazole 60 mg 60 mg PO DAILY@10/31/20 09/13/21 08/21/21 History capsule,biphase delayed release (Dexilant) gabapentin 100 mg capsule 100 mg PO BEDTIME@10/31/20 09/13/21 08/20/21 History sertraline 25 mg tablet 25 mg PO DAILY 10/31/20 09/13/21 08/21/21 History glipizide 10 mg tablet 10 mg PO BID 02/08/21 09/13/21 08/21/21 History methenamine hippurate 1 gram tablet 1 g PO BID #60 tab 06/29/21 09/13/21 08/21/21 Rx ascorbic acid (vitamin C) 1,000 mg 1,000 mg PO BID 08/21/21 09/13/21 08/21/21 History tablet (Vitamin C) fentanyl 25 mcg/hr transdermal 25 mcg TRANSDERMAL Q72H 08/21/21 09/13/21 09/13/21 History patch isosorbide mononitrate 30 mg 30 mg PO QPM #60 tab 08/23/21 09/13/21 Unknown Rx tablet,extended release 24 hr apixaban 2.5 mg tablet (Eliquis) 2.5 mg PO BID 09/13/21 09/13/21 Unknown History bumetanide 2 mg tablet 2 mg PO QAM 09/13/21 09/13/21 Unknown History isosorbide mononitrate 60 mg 60 mg PO QAM 09/13/21 09/13/21 Unknown History tablet,extended release 24 hr nifedipine 30 mg tablet,extended 30 mg PO QAM 09/13/21 09/13/21 Unknown History release 24 hr sertraline 50 mg tablet 50 mg PO DAILY 09/13/21 09/13/21 Unknown History Allergies Allergy/AdvReac Type Severity Reaction Status Date / Time citalopram [From Celexa] Allergy Unknown Verified 09/13/21 08:57 duloxetine [From Cymbalta] Allergy Unknown Verified 09/13/21 08:57 prochlorperazine Allergy ALGY-Anaphy Verified 09/13/21 08:57 [From Compazine] laxis shellfish derived Allergy Unknown Verified 09/13/21 08:57 sucralfate [From Carafate] Allergy Unknown Verified 09/13/21 08:57 trazodone Allergy Unknown Verified 09/13/21 08:57 zaleplon [From Sonata] Allergy Unknown Verified 09/13/21 08:57 PFSH Acute PFSH: Medical History Anticoagulation adequate with anticoagulant therapy Aortic stenosis Atrial fibrillation by electrocardiogram CAD (coronary artery disease) CHF (congestive heart failure) Chronic kidney insufficiency Dental caries Diabetes DJD (degenerative joint disease) Gastroenteritis GERD (gastroesophageal reflux disease) HTN (hypertension) Hypercholesterolemia Hyperlipidemia Morbid obesity Recurrent UTI Long history of recurrent UTIs suspicious for CHRONIC CYSTITIS. ESBL E. coli documented in 2019. Renal stone Rhabdomyolysis Sinus pause Urinary incontinence Surgical History H/O colonoscopy yrs ago History of cardiac catheterization History of hernia repair History of hip surgery History of hysterectomy History of knee surgery History of sinus surgery History of tonsillectomy History of umbilical hernia repair Pacemaker Status post placement of cardiac pacemaker Family History Father , in his 60's Lung disease Mother , 99 Hypertension Other Diabetes Stroke Denies family history of CAD (coronary artery disease) Clotting disorder Dementia Chronic kidney disease (CKD) Anesthesia complication Bleeding disorder Social History Quit status (tobacco): has quit using tobacco Former quit date comment: Smoking in her 20s Alcohol intake: never Caregiver/support person: Yes (Home health services [facility]) Lives independently: Yes Housing: House Marital status: Current occupational status: retired History of recent travel: No Current gender identity: Female Vitals/I&O/Wt Last Vital Signs Temp 97.1 F L 09/13/21 08:57 Pulse 99 09/13/21 08:57 Resp 16 09/13/21 08:57 Pulse Ox 94 09/13/21 08:57 Weight last 48 hrs Weight 86.183 kg Physical Exam Const: COMMON NORMALS: no acute distress and patient oriented x3 HENMT: COMMON NORMALS: normocephalic HEAD & SCALP: normocephalic Eye: COMMON NORMALS: Equal, round and reactive pupils present and EOMs intact bilaterally Neck/C-Spine: COMMON NORMALS: no JVD Resp: COMMON NORMALS: normal respiratory effort, No retractions, No use of accessory muscles and clear to auscultation bilaterally AUSCULTATION: clear to auscultation bilaterally Cardio: COMMON NORMALS: no JVD, regular rate, regular rhythm, S1 normal heart sound present and S2 normal heart sound present RATE: regular rate RHYTHM: regular rhythm HEART SOUNDS: S1 normal heart sound present and S2 normal heart sound present GI: COMMON NORMALS: Normal to inspection, nondistended, normoactive bowel sounds present, Soft to palpation, no masses and no bruits PALPATION: Yes Soft to palpation, Yes Tenderness to palpation present (GI) Details: RUQ and Yes No hepatosplenomegaly present Extremity: COMMON NORMALS: capillary refill normal, no clubbing, cyanosis or edema, no calf tenderness and no pedal edema Neuro: COMMON NORMALS: patient oriented x3 Psych: COMMON NORMALS: mental status grossly normal Data : 09/13/21 09:28 09/13/21 11:32 A&P Assessment and plan (1) Chest pain: Status: Acute (2) NSTEMI (non-ST elevated myocardial infarction): Status: Acute (3) Aortic stenosis: Status: Acute Qualifiers: Cardiac valve disease etiology: nonrheumatic Qualified Code(s): I35.0 - Nonrheumatic aortic (valve) stenosis (4) Atrial flutter: Status: Acute (5) Grade II diastolic dysfunction: Status: Acute Plan Chest pain -Serial EKGs, serial troponins, telemetry monitoring -Has received aspirin, metoprolol -Continue home Plavix, Eliquis -CAD aspirin, Coreg, statin -Continue home Imdur -Recent history of positive stress test 1. Large sized perfusion abnormality of moderate severity of entire inferior, ?basal to mid inferolateral and apical lateral watters with moderate reversibility ?in mid to apical inferolateral and apical inferior watters on supine stress ?images. ?2. This may represent old myocardial infarction with moderate sathya-infarct ?ischemia in RCA/circumflex artery territory. ?3.? In absence of prone imaging and with no regional wall motion abnormality ?diaphragmatic attenuation artifact cannot be completely ruled out. ?4.? Transient ischemic dilation index mildly increased at 1.2.? This may ?represent hypertensive response/subendocardial ischemia. ?5. EKG portion of the study will be reported separately. -Cardiac echocardiogram Normal left ventricular size and systolic function, EF 59 %.? ?Wall motion abnormalities as mentioned above.Mildly increased ?left atrial size. ?Thickened mitral valve. Moderate mitral annular calcification. ?Trace mitral valve regurgitation. ?Thickened aortic valve. Trace aortic valve regurgitation. Aortic ?valve sclerosis. ?Mild tricuspid valve regurgitation. ?Trace pulmonary valve regurgitation. ?There is no pericardial effusion. ?There are no intracardiac masses. ?Technically difficult study because of the poor ultrasonic ?window. -Cardiology consulted for consideration of cardiac cath, creatinine pending -Full code -Eliquis for DVT prophylaxis Right upper quadrant abdominal pain, will do liver function studies, right upper quadrant ultrasound Type 2 diabetes mellitus, low-dose sliding scale, continue glargine Diastolic CHF, hold Bumex Chronic pain, continue home fentanyl Attestations Medical Necessity Statement*: Patient requires hospitalization, outpatient, with observation, for chest pain, right upper quadrant pain Coding Level of Care Code Acute [facility] Director for Chg Fwd Exam Comprehensive Diagnoses Chest pain R07.9 NSTEMI (non-ST elevated myocardial infarction) I21.4 Aortic stenosis I35.0 Cardiac valve disease etiology: nonrheumatic Atrial flutter I48.92 Grade II diastolic dysfunction I51.9
[2021-09-13] MEDS: metoprolol tartrate 1 mg/1 mL SDV 5 mL 5 MG IVP (13:41)
[2021-09-13] MEDS: metoprolol tartrate 50 mg Tablet PO (13:42)
[2021-09-13] MEDS: amlodipine 10 mg Tablet PO (13:42)
[2021-09-13] MEDS: pantoprazole 40 mg SDV IVP (13:45)
[2021-09-13 13:46] LABS: Basophils # 0.1 10^3/uL (0.0-0.1); Basophils % 0.6 %; Eosinophils % 0.1 %; Hematocrit 38.6 % (37.0-47.0); Hemoglobin 12.6 g/dL (11.5-15.3); Lymphocytes % 6.6 %; Mean Corpuscular HGB Conc 32.6 g/dL (30.0-36.0); Mean Corpuscular Hemoglobin 31.3 pg (28.0-34.0); Mean Corpuscular Volume 95.8 fl (81-99); Mean Platelet Volume 10.5 fL (7.4-10.4); Monocytes # 1.3 10^3/uL (0.2-0.9); Neutrophils # 13.15 10^3/uL (1.8-7.7); Neutrophils % 84.1 %; Nucleated Red Blood Cells % 0 %; Platelet Count 213 10^3/cmm (130-400); Red Blood Count 4.03 10^6/uL (4.1-5.3); Red Cell Distribution Width 15.7 % (12.1-15.1); White Blood Count 15.7 10^3/uL (4.0-10.0)
[2021-09-13 13:53] LABS: C Reactive Protein 12.5 mg/L (0.0-4.9); Gamma Glutamyl Transferase 11 U/L (5-36); Lipase 22 U/L (13-60)
[2021-09-13 14:00] LABS: Procalcitonin 0.09 ng/mL (0-0.5)
[2021-09-13 14:02] LABS: Alanine Aminotransferase 17 U/L (0-33); Albumin Level 3.8 g/dL (3.5-5.2); Alkaline Phosphatase 131 IU/L (35-105); Anion Gap 18.5 (5-19); Aspartate Amino Transferase 22 U/L (0-32); Blood Urea Nitrogen 53 mg/dL (8-23); Calcium 9.4 mg/dL (8.5-10.5); Carbon Dioxide 20 mmol/L (22-29); Chloride 99 mmol/L (98-107); Globulin 3.2 g/dL (1.3-4.6); Glucose 241 mg/dL (65-115); Osmolality Calculated 300 mOsm/kg (285-295); Potassium 3.5 mmol/L (3.5-5.1); Sodium 134 mmol/L (136-145); Total Bilirubin 0.7 mg/dL (0.15-1.2)
--- NOTE | 2021-09-13 15:13 | ECG_ITS ---
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 Measurements Intervals [place] Rate: 63 P: 117 MT: 309 QRS: 61 QRSD: 134 T: 49 QT: 423 QTc: 435 Interpretive Statements ELECTRONIC ATRIAL PACEMAKER ELECTRONIC VENTRICULAR PACEMAKER -- CONTOUR ANALYSIS BASED ON INTRINSIC RHYTHM RIGHT BUNDLE BRANCH BLOCK [120+ ms QRS DURATION, UPRIGHT V1, 40+ ms S IN I/aVL/V4/V5/V6] Compared to ECG 09/13/2021 12:40:47 Sinus rhythm no longer present First degree AV block no longer present Electronically Signed On 09-14-2021 11:20:59 CDT by Patricia Morelos M.D. [email or web address] biloxiVertos Medicalmartins [id number]
[2021-09-13 15:48] LABS: Troponin 5 6HR 43.04 ng/L (0-10)
[2021-09-13 15:58] LABS: Troponin 5 6HR Delta 10.04 ng/L (0-12)
--- NOTE | 2021-09-13 15:59 | PC.NURSE ---
PT RESTING QUIETLY IN BED WITH EYES CLOSED SUPINE. PT IS IN NAD. PT HAS GOOD CHEST RISE AND FALL.
--- NOTE | 2021-09-13 18:11 | P.CONIM_ITS ---
Providers/Reason For Consult Consulting Physician/Specialty*: MICH Rome MD/cardiology Reason for Consult*: History of ASHD, PCI, CHF, presenting with complaints of chest pain Requesting Physician: Dr. Maloney Attending Physician: Barrett Maloney MD Primary Care Provider: Betsy Nuno DO History of Present Illness History of Present Illness Fantasma Montalvo is a 70 year old female with a history of coronary disease, status post PCI of the right coronary artery and diagonal vessels, is presenting with recurrent episodes of chest pain. Apparently the patient has been in her baseline state of health up until this morning around 7:00 when she started having pain in the left substernal region, radiating across the chest. The intensity of the pain was 6/10 to begin with. The symptoms gradually got worse to 9/10. She might have had some associated shortness of breath. No other radiation or associated symptoms. Because of the worsening symptoms, she was brought to the emergency room by ambulance. She has no fever or chills. No cough. No significant palpitation or dizziness. No syncopal episodes. Patient was admitted to the hospital few weeks ago with similar symptoms. He had a myocardial perfusion imaging at that time. She was found to have small to moderate area of sathya-infarction ischemia in this region of the right coronary artery and circumflex artery. Because of the patient's history of contrast- induced nephropathy and fairly stable status, it was decided to treat her medically. She was discharged home in stable condition. She is being followed by Dr. Morelos at the [facility]. Patient is known to have chronic intermittent atrial fibrillation.? She is on long-term oral anticoagulation.? 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 She has mild aortic valve stenosis based on echocardiogram. She also is known to have high blood pressure, dyslipidemia, type 2 diabetes, chronic kidney disease, hypothyroidism and degenerative joint disease. No fever or chills.? No cough. Currently ,at the time of my examination, patient has minimal chest pain. Review of Systems Narrative: CONSTITUTIONAL: No fever or chills. EYES: No blurring of vision or other visual disturbances lately. ENT: No hoarseness of voice, auditory disturbances or sore throat. CARDIOVASCULAR: As mentioned above. RESPIRATORY: No significant cough. GASTROINTESTINAL: No hematemesis or melena. GENITOURINARY: History of contrast-induced nephropathy. INTEGUMENTARY: No skin rashes or history of skin cancer. NEURO: No transient ischemic attacks or amaurosis. PSYCHIATRIC: No history of psychosis or major depression. HEMATOLOGIC: Chronic anemia ENDOCRINE: Type 2 diabetes MUSCULOSKELETAL: No recent joint pain or swelling. ALLERGY/IMMUNOLOGY: As mentioned above. Medications/Allergies Home Medications Medication Instructions Recorded Confirmed Last Taken Type insulin glargine 100 unit/mL (3 12 unit SUBCUT QAM ml 11/12/19 09/13/21 08/20/21 History mL) subcutaneous pen (Lantus Solostar U-100 Insulin) sennosides 8.6 mg-docusate sodium 1 tab PO DAILY PRN tab 11/12/19 09/13/21 02/27/20 History 50 mg tablet potassium chloride 10 mEq 10 meq PO DAILY@01/05/20 09/13/21 08/21/21 History tablet,extended release insulin aspart U-100 100 unit/mL See Rx Instructions .ROUTE .COMPLEX 05/25/20 09/13/21 12/06/20 History (3 mL) subcutaneous pen (Novolog Flexpen U-100 Insulin aspart) nitroglycerin 0.4 mg sublingual 0.4 mg SUBLINGUAL Q5M PRN 05/25/20 09/13/21 Unknown History tablet (Nitrostat) clopidogrel 75 mg tablet 75 mg PO DAILY@10/31/20 09/13/21 08/21/21 History dexlansoprazole 60 mg 60 mg PO DAILY@10/31/20 09/13/21 08/21/21 History capsule,biphase delayed release (Dexilant) gabapentin 100 mg capsule 100 mg PO BEDTIME@10/31/20 09/13/21 08/20/21 History sertraline 25 mg tablet 25 mg PO DAILY 10/31/20 09/13/21 08/21/21 History glipizide 10 mg tablet 10 mg PO BID 02/08/21 09/13/21 08/21/21 History methenamine hippurate 1 gram tablet 1 g PO BID #60 tab 06/29/21 09/13/21 08/21/21 Rx ascorbic acid (vitamin C) 1,000 mg 1,000 mg PO BID 08/21/21 09/13/21 08/21/21 History tablet (Vitamin C) fentanyl 25 mcg/hr transdermal 25 mcg TRANSDERMAL Q72H 08/21/21 09/13/21 09/13/21 History patch isosorbide mononitrate 30 mg 30 mg PO QPM #60 tab 08/23/21 09/13/21 Unknown Rx tablet,extended release 24 hr apixaban 2.5 mg tablet (Eliquis) 2.5 mg PO BID 09/13/21 09/13/21 Unknown History bumetanide 2 mg tablet 2 mg PO QAM 09/13/21 09/13/21 Unknown History isosorbide mononitrate 60 mg 60 mg PO QAM 09/13/21 09/13/21 Unknown History tablet,extended release 24 hr nifedipine 30 mg tablet,extended 30 mg PO QAM 09/13/21 09/13/21 Unknown History release 24 hr sertraline 50 mg tablet 50 mg PO DAILY 09/13/21 09/13/21 Unknown History Allergies Allergy/AdvReac Type Severity Reaction Status Date / Time citalopram [From Celexa] Allergy Unknown Verified 09/13/21 08:57 duloxetine [From Cymbalta] Allergy Unknown Verified 09/13/21 08:57 prochlorperazine Allergy ALGY-Anaphy Verified 09/13/21 08:57 [From Compazine] laxis shellfish derived Allergy Unknown Verified 09/13/21 08:57 sucralfate [From Carafate] Allergy Unknown Verified 09/13/21 08:57 trazodone Allergy Unknown Verified 09/13/21 08:57 zaleplon [From Sonata] Allergy Unknown Verified 09/13/21 08:57 Current Medications Generic Name Dose Route Start Last Admin Trade Name Freq PRN Reason Stop Dose Admin Pantoprazole Sodium 40 mg 09/13/21 13:30 09/13/21 13:45 Pantoprazole 40 Mg Sdv IVP 40 mg Q24H PINA Administration PFSH Acute PFSH: Medical History Anticoagulation adequate with anticoagulant therapy Aortic stenosis Atrial fibrillation by electrocardiogram CAD (coronary artery disease) CHF (congestive heart failure) Chronic kidney insufficiency Dental caries Diabetes DJD (degenerative joint disease) Gastroenteritis GERD (gastroesophageal reflux disease) HTN (hypertension) Hypercholesterolemia Hyperlipidemia Morbid obesity Recurrent UTI Long history of recurrent UTIs suspicious for CHRONIC CYSTITIS. ESBL E. coli documented in 2019. Renal stone Rhabdomyolysis Sinus pause Urinary incontinence Surgical History H/O colonoscopy yrs ago History of cardiac catheterization History of hernia repair History of hip surgery History of hysterectomy History of knee surgery History of sinus surgery History of tonsillectomy History of umbilical hernia repair Pacemaker Status post placement of cardiac pacemaker Family History Father , in his 60's Lung disease Mother , 99 Hypertension Other Diabetes Stroke Denies family history of CAD (coronary artery disease) Clotting disorder Dementia Chronic kidney disease (CKD) Anesthesia complication Bleeding disorder Social History Quit status (tobacco): has quit using tobacco Former quit date comment: Smoking in her 20s Alcohol intake: never Caregiver/support person: Yes (Home health services Friday) Lives independently: Yes Housing: House Marital status: Current occupational status: retired History of recent travel: No Current gender identity: Female Vitals/I&O/Wt Last Vital Signs Temp 97.1 F L 09/13/21 08:57 Pulse 58 L 09/13/21 16:30 Resp 16 09/13/21 16:30 BP 166/72 09/13/21 16:30 Pulse Ox 94 09/13/21 18:07 Weight last 48 hrs Weight 190 lb Physical Exam Narrative: GENERAL: The patient is alert and oriented times three. Not in any acute distress. Morbidly obese HEENT: No significant pallor, icterus or lymphadenopathy. The pupils are symmetric oral cavity: There are no mucous membrane lesions. Funduscopic examination: The fundus is not visualized NECK: Trachea appears to be central. No masses noted. No JVD or thyromegaly appreciated. No carotid bruit. RESPIRATORY: Chest is symmetrical. No intercostals muscle retraction or any accessory muscle activation. Moderate diffuse chest wall tenderness. Breath sounds are heard bilaterally. No rales or rhonchi heard. No evidence of any con solidation. BREASTS: Deferred. HEART: The PMI cannot be palpated. No other palpable precordial events. First and second heart sounds are normal. No S3. Ejection Stolle murmur grade 3 or 6 in the aortic area. No diastolic murmurs. No pericardial rub. ABDOMEN: Abdomen is obese no vessel pulsations or distention. No tenderness. No organomegaly appreciated. No abdominal bruit. Bowel sounds are normally heard. : Deferred. RECTAL: Deferred. LYMPHATIC: No lymphadenopathy noted in the neck or groin. EXTREMITIES: No edema or cyanosis. No clubbing. The pulses are symmetrical bilaterally. The radial, femoral, dorsalis pedis and the posterior tibial pulses are palpated low volume and amplitude. MUSCULOSKELETAL: No acute joint deformities or swelling SKIN: There are no significant scars or skin rash noted. NEUROPSYCHIATRIC: The patient is alert and oriented x3. Appears to be in a good mood. The higher functions are grossly within normal limits. No tremors or rigidity noted. Data : 09/13/21 09:28 09/13/21 11:32 Other Labs: Laboratory Last Values WBC 15.7 10^3/uL (4.0-10.0) H 09/13/21 09: RBC 4.03 10^6/uL (4.1-5.3) L 09/13/21 09:28 Hgb 12.6 g/dL (11.5-15.3) 09/13/21 09:28 Hct 38.6 % (37.0-47.0) 09/13/21 09: MCV 95.8 fl (81-99) 09/13/21 09:28 MCH 31.3 pg (28.0-34.0) 09/13/21 09: MCHC 32.6 g/dL (30.0-36.0) 09/13/21 09: RDW 15.7 % (12.1-15.1) H 09/13/21 09:28 Plt Count 213 10^3/cmm (130-400) 09/13/21 09:28 MPV 10.5 fL (7.4-10.4) H 09/13/21 09:28 Neut % (Auto) 84.1 % 09/13/21 09:28 Lymph % (Auto) 6.6 % 09/13/21 09:28 Piute % (Auto) 8.0 % 09/13/21 09:28 Eos % (Auto) 0.1 % 09/13/21 09:28 Baso % (Auto) 0.6 % 09/13/21 09:28 Neut # (Auto) 13.15 10^3/uL (1.8-7.7) H 09/13/21 09:28 Lymph # (Auto) 1.0 10^3/uL (0.8-4.8) 09/13/21 09:28 [place]ute # (Auto) 1.3 10^3/uL (0.2-0.9) H 09/13/21 09:28 Eos # (Auto) 0.0 10^3/uL (0.0-0.8) 09/13/21 09:28 Baso # (Auto) 0.1 10^3/uL (0.0-0.1) 09/13/21 09:28 Nucleated RBC % (auto) 0 % 09/13/21 09: Nucleated RBCs # 0.0 /100WBC 09/13/21 09:28 Sodium 134 mmol/L (136-145) L 09/13/21 11:32 Potassium 3.5 mmol/L (3.5-5.1) 09/13/21 11:32 Chloride 99 mmol/L (98-107) 09/13/21 11:32 Carbon Dioxide 20 mmol/L (22-29) L 09/13/21 11:32 Anion Gap 18.5 (5-19) 09/13/21 11:32 BUN 53 mg/dL (8-23) H 09/13/21 11:32 Creatinine 1.5 mg/dL (0.5-0.9) H 09/13/21 11:32 GFR Calculation Not Reportable 09/13/21 11:32 Glucose 241 mg/dL (65-115) H 09/13/21 11:32 Calculated Osmolality 300 mOsm/kg (285-295) H 09/13/21 11:32 Calcium 9.4 mg/dL (8.5-10.5) 09/13/21 11:32 Total Bilirubin 0.7 mg/dL (0.15-1.2) 09/13/21 11:32 GGT 11 U/L (5-36) 09/13/21 09:28 AST 22 U/L (0-32) 09/13/21 11:32 ALT 17 U/L (0-33) 09/13/21 11:32 Alkaline Phosphatase 131 IU/L (35-105) H 09/13/21 11:32 Troponin T Baseline 33 ng/L (0-10) H 09/13/21 09:28 Troponin T 120 Minute 34.34 ng/L (0-10) H 09/13/21 11:32 Delta Troponin T 1.34 ABS# (0-10) 09/13/21 11:32 Troponin T Hi Sens 6Hr 43.04 ng/L (0-10) H 09/13/21 15:10 Troponin T Hi Sens 6Hr Delta 10.04 ng/L (0-12) 09/13/21 15:10 C-Reactive Protein 12.5 mg/L (0.0-4.9) H 09/13/21 09:28 Total Protein 7.0 g/dL (6.6-8.7) 09/13/21 11:32 Albumin 3.8 g/dL (3.5-5.2) 09/13/21 11:32 Globulin 3.2 g/dL (1.3-4.6) 09/13/21 11:32 Lipase 22 U/L (13-60) 09/13/21 09:28 Procalcitonin 0.09 ng/mL (0-0.5) 09/13/21 09:28 Urine Color Yellow (Yellow) 09/13/21 11:55 Urine Appearance Hazy (CLEAR) A 09/13/21 11:55 Urine pH 6 (5-7) 09/13/21 11:55 Ur Specific [place] 1.010 (1.005-1.030) 09/13/21 11:55 Urine Protein 1+ (Negative) H 09/13/21 11:55 Urine Glucose (UA) 2+ (Normal) H 09/13/21 11:55 Urine Ketones Negative (Negative) 09/13/21 11:55 Urine Blood 3+ (Negative) H 09/13/21 11:55 Urine Nitrate Negative (Negative) 09/13/21 11:55 Urine Bilirubin Neg (Negative) 09/13/21 11:55 Urine Urobilinogen Neg mg/dL (Negative) 09/13/21 11:55 Ur Leukocyte Esterase Negative (Negative) 09/13/21 11:55 Urine RBC 0-4 /hpf (0-2) H 09/13/21 11:55 Urine WBC 0-4 /hpf (0-5) H 09/13/21 11:55 Ur Squamous Epith Cells 5-10 /hpf (0-5) H 09/13/21 11:55 Amorphous Sediment Not Reportable 09/13/21 11:55 Urine Bacteria 4+ /hpf (NONE) H 09/13/21 11:55 Myocardial perfusion imaging on 08/21/2021: My impression: 1. Large sized perfusion abnormality of moderate severity of entire inferior, ?basal to mid inferolateral and apical lateral watters with moderate reversibility ?in mid to apical inferolateral and apical inferior watters on supine stress ?images. ?2. This may represent old myocardial infarction with moderate sathya-infarct ?ischemia in RCA/circumflex artery territory. ?3.? In absence of prone imaging and with no regional wall motion abnormality ?diaphragmatic attenuation artifact cannot be completely ruled out. ?4.? Transient ischemic dilation index mildly increased at 1.2.? This may ?represent hypertensive response/subendocardial ischemia. ?5. EKG portion of the study will be reported separately. EKG 1: My Interpretation: The EKG showed AV paced rhythm. Further interpretation is not possible. Clarisa rodríguez has a possible old inferior wall VT. EKG computer-generated impression: Head CT 09/13/21 09:13 IMPRESSION: 1. No acute intracranial hemorrhage or edema. 2. Mild atrophy with moderate to severe chronic white matter small vessel ischemic disease. Gallbladder Ultrasound 09/13/21 13:25 IMPRESSION: 1. Quality of this examination is suboptimal due to body habitus. 2. Cholelithiasis without evidence for acute cholecystitis. 3. Normal bile duct. A&P Assessment and plan (1) Angina at rest: Chest pain is atypical. Troponin T is negative for micro injury. EKG is uninterpretable because the pacing artifact she had a small to moderate area of sathya-infarction ischemia by the perfusion scan on the eighth of this month. She has significant chest wall tenderness. The chest pain most likely is cardiac. For further evaluation of her symptoms, she may benefit from a cardiac catheterization. But contrast-induced nephropathy causing acute renal failure is a strong possibility in her case. I will be discussing her case with Dr. Morelos, her trim and burr operator. We will make a decision on the cardiac catheterization afterwards. In the meanwhile, we may optimize the medical treatment. May hold off on the Eliquis for the time being Status: Acute (2) Atherosclerotic heart disease of pala coronary artery with other forms of angina pectoris: As mentioned above. Patient apparently had PCI of the RCA and diagonal lesions in 2020. Status: Acute (3) Heart failure with preserved ejection fraction: The LV ejection fraction was within normal limits by echocardiogram. Currently she has no evidence of any heart failure. Status: Acute (4) Atrial flutter: Currently the patient is in an AV paced rhythm. I may hold off on the oral anticoagulant at this time. Start her on Lovenox, adjusted for kidney function Status: Acute (5) Chronic kidney disease: For kidney function is fairly stable. May closely monitor the kidney function. Status: Acute Plan Patient the patient clinical progress, further recommendations will be made. Thank you for the opportunity to evaluate this patient make these recommendation Coding Level of Care Code Acute Equipment Superintendent for Kendall Mckeon History Detailed Medical Decision Making Moderate Complexity Diagnoses Angina at rest I20.8 Atherosclerotic heart disease of pala coronary artery with other forms of angina pectoris I25.118 Heart failure with preserved ejection fraction I50.30 Atrial flutter I48.92 Chronic kidney disease N18.9
--- NOTE | 2021-09-13 19:12 | PC.NURSE ---
report given to praneeth perea assumed care.
[2021-09-13 21:24] LABS: Glucose Point of Care 218 mg/dL (70-110)
[2021-09-13] MEDS: fentaNYL 25 mcg Patch 1 PATCH TRANSDERMA (21:28)
[2021-09-13] MEDS: ascorbic acid 500 mg Tablet 1000 MG PO (21:29)
[2021-09-13] MEDS: apixaban 5 mg Tablet 2.5 MG PO (21:30)
[2021-09-13] MEDS: insulin lispro 100 unit/1 mL SUBCUT (21:30)
[2021-09-13] MEDS: isosorbide mononitrate ER 30 mg Tablet PO (21:30)
[2021-09-13] MEDS: atorvastatin 40 mg Tablet PO (21:30)
[2021-09-13] MEDS: gabapentin 100 mg Capsule PO (21:30)
[2021-09-13] MEDS: carvedilol 3.125 mg Tablet PO (21:30)
[2021-09-14] VITALS (13 sets, daily range): BP systolic 106–127; BP diastolic 50–59; PULSE 60–67; RESP 14–20; TEMP 36.7–37.1; O2SAT 91–96
[2021-09-14] MEDS: isosorbide mononitrate ER 60 mg Tablet PO (05:05)
[2021-09-14] MEDS: NIFEdipine ER (24 hr) 30 mg Tablet PO (05:05)
[2021-09-14] MEDS: insulin glargine 100 units/1 mL 12 UNIT SUBCUT (05:05)
[2021-09-14 05:15] LABS: Basophils # 0.1 10^3/uL (0.0-0.1); Basophils % 0.6 %; Eosinophils # 0.2 10^3/uL (0.0-0.8); Eosinophils % 2.3 %; Hematocrit 33.7 % (37.0-47.0); Hemoglobin 11.3 g/dL (11.5-15.3); Lymphocytes % 24.9 %; Mean Corpuscular HGB Conc 33.5 g/dL (30.0-36.0); Mean Corpuscular Hemoglobin 31.4 pg (28.0-34.0); Mean Corpuscular Volume 93.6 fl (81-99); Mean Platelet Volume 10.6 fL (7.4-10.4); Monocytes # 0.8 10^3/uL (0.2-0.9); Monocytes % 9.7 %; Neutrophils # 4.87 10^3/uL (1.8-7.7); Neutrophils % 61.9 %; Nucleated Red Blood Cells % 0 %; Platelet Count 199 10^3/cmm (130-400); Red Cell Distribution Width 15.9 % (12.1-15.1); White Blood Count 7.9 10^3/uL (4.0-10.0)
[2021-09-14 05:39] LABS: Glucose Point of Care 198 mg/dL (70-110)
[2021-09-14 05:44] LABS: Alanine Aminotransferase 16 U/L (0-33); Albumin Level 3.4 g/dL (3.5-5.2); Alkaline Phosphatase 121 IU/L (35-105); Anion Gap 13.8 (5-19); Aspartate Amino Transferase 19 U/L (0-32); Blood Urea Nitrogen 53 mg/dL (8-23); Calcium 9.1 mg/dL (8.5-10.5); Carbon Dioxide 24 mmol/L (22-29); Chloride 104 mmol/L (98-107); Globulin 2.8 g/dL (1.3-4.6); Glucose 185 mg/dL (65-115); Magnesium 1.7 mg/dL (1.7-2.3); Osmolality Calculated 305 mOsm/kg (285-295); Phosphorus 3.3 mg/dL (2.5-4.5); Potassium 3.8 mmol/L (3.5-5.1); Sodium 138 mmol/L (136-145); Thyroid Stimulating Hormone 1.19 uIU/mL (0.27-4.20); Total Bilirubin 0.8 mg/dL (0.15-1.2); Total Protein 6.2 g/dL (6.6-8.7)
[2021-09-14] MEDS: insulin lispro 100 unit/1 mL SUBCUT ×2 (07:49→17:21)
[2021-09-14] MEDS: ascorbic acid 500 mg Tablet 1000 MG PO ×2 (07:50→17:22)
[2021-09-14] MEDS: clopidogrel 75 mg Tablet PO (07:50)
[2021-09-14] MEDS: carvedilol 3.125 mg Tablet PO ×2 (07:51→17:22)
[2021-09-14] MEDS: aspirin 81 mg EC Tablet PO (07:51)
[2021-09-14] MEDS: nystatin cream 30 gm 1 APPLIC TOPICAL ×2 (07:52→17:25)
[2021-09-14] MEDS: sertraline 50 mg Tablet 25 MG PO (07:52)
--- NOTE | 2021-09-14 11:09 | PC.NURSE ---
Order received from Dr. Pederson regarding enoxaparin for pt, he stated to have pharmacy to dose R/T renal function. Talked with pharmacist and he stated to order normal dose as her renal function does not require the adjusted dose at this time.
[2021-09-14 11:39] LABS: Glucose Point of Care 119 mg/dL (70-110)
--- NOTE | 2021-09-14 11:45 | PM.PN ---
Subjective Subjective: The patient is feeling better. The vital signs remained stable. Myocardial infarction is ruled out. She continues to have the chest wall tenderness which is chronic. No other complaints at this time. Medications: Medication Review Details: Current Medications Acetaminophen (Acetaminophen 325 Mg Tablet) 650 mg PO Q6H PRN PRN Reason: Mild/Mod Pain Or Temp >/= 101 Ascorbic Acid (Ascorbic Acid 500 Mg Tablet) 1,000 mg PO BID [facility] Last Admin: 09/14/21 07:50 Dose: 1,000 mg Documented by: Aspirin (Aspirin 81 Mg Ec Tablet) 81 mg PO DAILY [facility] Last Admin: 09/14/21 07:51 Dose: 81 mg Documented by: Atorvastatin Calcium (Atorvastatin 40 Mg Tablet) 40 mg PO BEDTIME [facility] Last Admin: 09/13/21 21:30 Dose: 40 mg Documented by: Carvedilol (Carvedilol 3.125 Mg Tablet) 3.125 mg PO BID [facility] Last Admin: 09/14/21 07:51 Dose: 3.125 mg Documented by: Clopidogrel Bisulfate (Clopidogrel 75 Mg Tablet) 75 mg PO DAILY@08 [facility] Last Admin: 09/14/21 07:50 Dose: 75 mg Documented by: Dextrose (Dextrose 50% Syringe 50 Ml) 25 ml IVP ONCE PRN; Protocol PRN Reason: hypoglycemia protocol Dextrose (Dextrose 50% Syringe 50 Ml) 50 ml IVP PRN PRN; Protocol PRN Reason: hypoglycemia protocol Enoxaparin Sodium (Enoxaparin 100 Mg/Ml Syringe) 90 mg 1 mg/kg (90 mg) SUBCUT Q12H [facility] Fentanyl (Fentanyl 25 Mcg Patch) 1 patch TRANSDERMA Q72H [facility] Last Admin: 09/13/21 21:28 Dose: 1 patch Documented by: Gabapentin (Gabapentin 100 Mg Capsule) 100 mg PO BEDTIME@20 [facility] Last Admin: 09/13/21 21:30 Dose: 100 mg Documented by: Glucagon (Glucagon 1 Mg/Ml Inj 1 Ml) 1 mg IM ONCE PRN; Protocol PRN Reason: Adult Acute Hypoglycemia Prot. Dextrose (D5w) 500 mls @ 100 mls/hr IV ONCE PRN; Protocol PRN Reason: Adult Acute Hypoglycemia Prot Insulin Glargine (Insulin Glargine 100 Units/1 Ml) 12 unit SUBCUT QAM [facility] Last Admin: 09/14/21 05:05 Dose: 12 unit Documented by: Insulin Human Lispro (Insulin Lispro 100 Unit/1 Ml) 0 unit SUBCUT TIDWM [facility]; Protocol Last Admin: 09/14/21 11:45 Dose: Not Given Documented by: Isosorbide Mononitrate (Isosorbide Mononitrate Er 60 Mg Tablet) 60 mg PO QAM [facility] Last Admin: 09/14/21 05:05 Dose: 60 mg Documented by: Isosorbide Mononitrate (Isosorbide Mononitrate Er 30 Mg Tablet) 30 mg PO QPM [facility] Last Admin: 09/13/21 21:30 Dose: 30 mg Documented by: Morphine Sulfate (Morphine 4 Mg/Ml Sdv 1 Ml) 1 mg IVP Q4H PRN PRN Reason: SEVERE PAIN Naloxone HCl (Naloxone 0.4 Mg/Ml Sdv) 0.1 mg IVP Q2M PRN PRN Reason: OPIATERV Nifedipine (Nifedipine Er (24 Hr) 30 Mg Tablet) 30 mg PO QAM [facility] Last Admin: 09/14/21 05:05 Dose: 30 mg Documented by: Nitroglycerin (Nitroglycerin 0.4 Mg Sublingual Tablet) 0.4 mg SUBLINGUAL Q5M PRN PRN Reason: Chest Pain Nystatin (Nystatin Cream 30 Gm) 1 applic TOPICAL BID [facility] Last Admin: 09/14/21 07:52 Dose: 1 applic Documented by: Ondansetron HCl (Ondansetron 2 Mg/Ml Sdv 2 Ml) 4 mg IVP Q8H PRN PRN Reason: vomiting, or N/V if npo Ondansetron HCl (Ondansetron 2 Mg/Ml Sdv 2 Ml) 4 mg IVP Q6H PRN PRN Reason: NAUSEA AND VOMITING Pantoprazole Sodium (Pantoprazole 40 Mg Sdv) 40 mg IVP Q24H [facility] Last Admin: 09/13/21 13:45 Dose: 40 mg Documented by: Sertraline HCl (Sertraline 50 Mg Tablet) 25 mg PO DAILY [facility] Last Admin: 09/14/21 07:52 Dose: 25 mg Documented by: Vitals/I&O/Wt Last Vital Signs Temp 98.1 F 09/14/21 11:18 Pulse 60 09/14/21 11:18 Resp 16 09/14/21 11:18 BP 119/59 09/14/21 11:18 Pulse Ox 96 09/14/21 11:18 09/13/21 09/14/21 09/14/21 22:59 06:59 14:59 Intake Total 240 / 240 360 / 600 Balance 240 / 240 360 / 600 Weight last 48 hrs Weight 207 lb 6.4 oz Weight 190 lb Physical Exam Narrative: GENERAL: The patient is alert and oriented times three. Not in any acute distress. Morbidly obese HEENT: No significant pallor, icterus or lymphadenopathy. NECK: Trachea appears to be central. No masses noted. No JVD or thyromegaly appreciated. No carotid bruit. RESPIRATORY: Chest is symmetrical. No intercostals muscle retraction or any accessory muscle activation. Moderate diffuse chest wall tenderness. Breath sounds are heard bilaterally. No rales or rhonchi heard. No evidence of any consolidation. BREASTS: Deferred. HEART: The PMI cannot be palpated. No other palpable precordial events. First and second heart sounds are normal. No S3. Ejection Stolle murmur grade 3 or 6 in the aortic area. No diastolic murmurs. No pericardial rub. ABDOMEN: Bowel sounds are normal. No tenderness. : Deferred. RECTAL: Deferred. LYMPHATIC: No lymphadenopathy noted in the neck or groin. EXTREMITIES: No edema or cyanosis. Peripheral pulses are palpable but weak bilaterally MUSCULOSKELETAL: No acute joint deformities or swelling SKIN: There are no significant scars or skin rash noted. NEUROPSYCHIATRIC: The patient is alert and oriented x3. Appears to be in a good mood. The higher functions are grossly within normal limits. No tremors or rigidity noted. Data : 09/14/21 04:23 09/14/21 04:23 Other Labs: Laboratory Last Values WBC 7.9 10^3/uL (4.0-10.0) 09/14/21 04:23 RBC 3.60 10^6/uL (4.1-5.3) L 09/14/21 04:23 Hgb 11.3 g/dL (11.5-15.3) L 09/14/21 04:23 Hct 33.7 % (37.0-47.0) L 09/14/21 04:23 MCV 93.6 fl (81-99) 09/14/21 04:23 MCH 31.4 pg (28.0-34.0) 09/14/21 04:23 MCHC 33.5 g/dL (30.0-36.0) 09/14/21 04:23 RDW 15.9 % (12.1-15.1) H 09/14/21 04:23 Plt Count 199 10^3/cmm (130-400) 09/14/21 04:23 MPV 10.6 fL (7.4-10.4) H 09/14/21 04:23 Neut % (Auto) 61.9 % 09/14/21 04:23 Lymph % (Auto) 24.9 % 09/14/21 04:23 Taylor % (Auto) 9.7 % 09/14/21 04:23 Eos % (Auto) 2.3 % 09/14/21 04:23 Baso % (Auto) 0.6 % 09/14/21 04:23 Neut # (Auto) 4.87 10^3/uL (1.8-7.7) 09/14/21 04:23 Lymph # (Auto) 2.0 10^3/uL (0.8-4.8) 09/14/21 04:23 Taylor # (Auto) 0.8 10^3/uL (0.2-0.9) 09/14/21 04:23 Eos # (Auto) 0.2 10^3/uL (0.0-0.8) 09/14/21 04:23 Baso # (Auto) 0.1 10^3/uL (0.0-0.1) 09/14/21 04:23 Nucleated RBC % (auto) 0 % 09/14/21 04: Nucleated RBCs # 0.0 /100WBC 09/14/21 04:23 Sodium 138 mmol/L (136-145) 09/14/21 04:23 Potassium 3.8 mmol/L (3.5-5.1) 09/14/21 04:23 Chloride 104 mmol/L (98-107) 09/14/21 04:23 Carbon Dioxide 24 mmol/L (22-29) 09/14/21 04:23 Anion Gap 13.8 (5-19) 09/14/21 04:23 BUN 53 mg/dL (8-23) H 09/14/21 04:23 Creatinine 1.8 mg/dL (0.5-0.9) H 09/14/21 04:23 GFR Calculation Not Reportable 09/14/21 04:23 Glucose 185 mg/dL (65-115) H 09/14/21 04:23 POC Glucose 119 mg/dL (70-110) H 09/14/21 11:21 Calculated Osmolality 305 mOsm/kg (285-295) H 09/14/21 04:23 Calcium 9.1 mg/dL (8.5-10.5) 09/14/21 04:23 Phosphorus 3.3 mg/dL (2.5-4.5) 09/14/21 04:23 Magnesium 1.7 mg/dL (1.7-2.3) 09/14/21 04:23 Total Bilirubin 0.8 mg/dL (0.15-1.2) 09/14/21 04:23 GGT 11 U/L (5-36) 09/13/21 09:28 AST 19 U/L (0-32) 09/14/21 04:23 ALT 16 U/L (0-33) 09/14/21 04:23 Alkaline Phosphatase 121 IU/L (35-105) H 09/14/21 04:23 Troponin T Baseline 33 ng/L (0-10) H 09/13/21 09:28 Troponin T 120 Minute 34.34 ng/L (0-10) H 09/13/21 11:32 Delta Troponin T 1.34 ABS# (0-10) 09/13/21 11:32 Troponin T Hi Sens 6Hr 43.04 ng/L (0-10) H 09/13/21 15:10 Troponin T Hi Sens 6Hr Delta 10.04 ng/L (0-12) 09/13/21 15:10 C-Reactive Protein 12.5 mg/L (0.0-4.9) H 09/13/21 09:28 Total Protein 6.2 g/dL (6.6-8.7) L 09/14/21 04:23 Albumin 3.4 g/dL (3.5-5.2) L 09/14/21 04:23 Globulin 2.8 g/dL (1.3-4.6) 09/14/21 04:23 Lipase 22 U/L (13-60) 09/13/21 09:28 Procalcitonin 0.09 ng/mL (0-0.5) 09/13/21 09:28 TSH 1.19 uIU/mL (0.27-4.20) 09/14/21 04:23 Urine Color Yellow (Yellow) 09/13/21 11:55 Urine Appearance Hazy (CLEAR) A 09/13/21 11:55 Urine pH 6 (5-7) 09/13/21 11:55 Ur Specific [place] 1.010 (1.005-1.030) 09/13/21 11:55 Urine Protein 1+ (Negative) H 09/13/21 11:55 Urine Glucose (UA) 2+ (Normal) H 09/13/21 11:55 Urine Ketones Negative (Negative) 09/13/21 11:55 Urine Blood 3+ (Negative) H 09/13/21 11:55 Urine Nitrate Negative (Negative) 09/13/21 11:55 Urine Bilirubin Neg (Negative) 09/13/21 11:55 Urine Urobilinogen Neg mg/dL (Negative) 09/13/21 11:55 Ur Leukocyte Esterase Negative (Negative) 09/13/21 11:55 Urine RBC 0-4 /hpf (0-2) H 09/13/21 11:55 Urine WBC 0-4 /hpf (0-5) H 09/13/21 11:55 Ur Squamous Epith Cells 5-10 /hpf (0-5) H 09/13/21 11:55 Amorphous Sediment Not Reportable 09/13/21 11:55 Urine Bacteria 4+ /hpf (NONE) H 09/13/21 11:55 Micro: Microbiology 09/13/21 11:55 Urine Culture - Preliminary Urine,Clean Catch Gram Negative Rods A&P Assessment and plan (1) Angina at rest: Chest pain is atypical. Troponin T is negative for myocardial injury. EKG is uninterpretable because the pacing artifact she had a small to moderate area of sathya-infarction ischemia by the perfusion scan on the eighth of this month. She has significant chest wall tenderness. She seems to 2 different kinds of chest pains. The chest pain that she is complaining of is most likely is cardiac. For further evaluation of her symptoms, she may benefit from a cardiac catheterization. But contrast-induced nephropathy causing acute renal failure is a strong possibility in her case. This was once again discussed with the patient this morning. Patient is wanting to take a chance and go for the angiogram because of the recurrent episodes of chest pains. She seems to understand the implications. Since the patient was on Eliquis, we may wait for a minimum 2 days, before proceeding with the angiogram. Meanwhile, she may be kept on therapeutic dose of Lovenox adjusted for kidney function Status: Acute (2) Atherosclerotic heart disease of [place] coronary artery with other forms of angina pectoris: As mentioned above. Patient apparently had PCI of the RCA and diagonal lesions in 2019. Based on the angiogram findings, further recommendations will be made Status: Acute (3) Heart failure with preserved ejection fraction: The LV ejection fraction was within normal limits by echocardiogram. Currently she has no evidence of any heart failure. Status: Acute (4) Atrial flutter: Currently the patient is in an AV paced rhythm. The Eliquis is on hold at this point. Continue with subcu Lovenox, adjusted for kidney function. Status: Acute (5) Chronic kidney disease: For kidney function is fairly stable. May closely monitor the kidney function. Status: Acute Plan Based on the the patient's clinical progress and the results of the above tests, further management decisions will be made. Dr. Perdomo will be covering for the weekend, from cardiology Attestations Medical Necessity Statement*: Patient requires continued hospital stay for close monitoring and further management Coding Level of Care Code Acute Rn Private Duty for Kendall Mckeon Diagnoses Angina at rest I20.8 Atherosclerotic heart disease of [place] coronary artery with other forms of angina pectoris I25.118 Heart failure with preserved ejection fraction I50.30 Atrial flutter I48.92 Chronic kidney disease N18.9
[2021-09-14] MEDS: enoxaparin 100 mg/mL Syringe 90 MG SUBCUT ×2 (11:51→20:43)
[2021-09-14] MEDS: pantoprazole 40 mg SDV IVP (13:56)
--- NOTE | 2021-09-14 15:12 | PM.PN ---
Subjective Subjective: Patient was seen this morning, no chest pain overnight, continues to have some right upper quadrant discomfort but very mild, she is wondering when she can eat Vitals/I&O/Wt Last Vital Signs Temp 98.1 F 09/14/21 11:18 Pulse 60 09/14/21 14:00 Resp 18 09/14/21 11:55 BP 115/51 09/14/21 11:55 Pulse Ox 93 09/14/21 11:52 09/14/21 09/14/21 09/14/21 06:59 14:59 22:59 Intake Total 360 / 600 240 / 240 Balance 360 / 600 240 / 240 Weight last 48 hrs Weight 94.075 kg Weight 86.183 kg Physical Exam Const: COMMON NORMALS: no acute distress and patient oriented x3 Resp: COMMON NORMALS: normal respiratory effort, No retractions, No use of accessory muscles and clear to auscultation bilaterally AUSCULTATION: clear to auscultation bilaterally Cardio: COMMON NORMALS: regular rate, regular rhythm, S1 normal heart sound present and S2 normal heart sound present RATE: regular rate RHYTHM: regular rhythm HEART SOUNDS: S1 normal heart sound present and S2 normal heart sound present GI: COMMON NORMALS: Normal to inspection, nondistended, normoactive bowel sounds present, Soft to palpation, non-tender and No hepatosplenomegaly present PALPATION: Yes Soft to palpation and Yes No hepatosplenomegaly present Extremity: COMMON NORMALS: no pedal edema Neuro: COMMON NORMALS: patient oriented x3 Psych: COMMON NORMALS: mental status grossly normal Data : 09/14/21 04:23 09/14/21 04:23 Micro: Microbiology 09/13/21 11:55 Urine Culture - Preliminary Urine,Clean Catch Gram Negative Rods A&P Assessment and plan (1) Chest pain: Status: Acute (2) NSTEMI (non-ST elevated myocardial infarction): Status: Acute (3) Aortic stenosis: Status: Acute Qualifiers: Cardiac valve disease etiology: nonrheumatic Qualified Code(s): I35.0 - Nonrheumatic aortic (valve) stenosis (4) Atrial flutter: Status: Acute (5) Grade II diastolic dysfunction: Status: Acute Plan Chest pain -Serial EKGs, serial troponins, telemetry monitoring -Has received aspirin, metoprolol -Continue home Plavix, therapeutic Lovenox -CAD aspirin, Coreg, statin -Continue home Imdur -Recent history of positive stress test 1. Large sized perfusion abnormality of moderate severity of entire inferior, ?basal to mid inferolateral and apical lateral watters with moderate reversibility ?in mid to apical inferolateral and apical inferior watters on supine stress ?images. ?2. This may represent old myocardial infarction with moderate sathya-infarct ?ischemia in RCA/circumflex artery territory. ?3.? In absence of prone imaging and with no regional wall motion abnormality ?diaphragmatic attenuation artifact cannot be completely ruled out. ?4.? Transient ischemic dilation index mildly increased at 1.2.? This may ?represent hypertensive response/subendocardial ischemia. ?5. EKG portion of the study will be reported separately. -Cardiac echocardiogram Normal left ventricular size and systolic function, EF 59 %.? ?Wall motion abnormalities as mentioned above.Mildly increased ?left atrial size. ?Thickened mitral valve. Moderate mitral annular calcification. ?Trace mitral valve regurgitation. ?Thickened aortic valve. Trace aortic valve regurgitation. Aortic ?valve sclerosis. ?Mild tricuspid valve regurgitation. ?Trace pulmonary valve regurgitation. ?There is no pericardial effusion. ?There are no intracardiac masses. ?Technically difficult study because of the poor ultrasonic ?window. -Cardiology consulted for consideration of cardiac cath, creatinine 1.8 -Full code -Therapeutic Lovenox for DVT prophylaxis Right upper quadrant abdominal pain, right upper quadrant ultrasound shows cholelithiasis, no evidence of cholecystitis, continue to monitor Type 2 diabetes mellitus, low-dose sliding scale, continue glargine Diastolic CHF, hold Bumex Chronic pain, continue home fentanyl Attestations Medical Necessity Statement*: Patient requires hospitalization for chest pain, proceeding with coronary angiogram Coding Level of Care Code Acute [employer] for g [employer]wd Diagnoses Chest pain R07.9 NSTEMI (non-ST elevated myocardial infarction) I21.4 Aortic stenosis I35.0 Cardiac valve disease etiology: nonrheumatic Atrial flutter I48.92 Grade II diastolic dysfunction I51.9
[2021-09-14 16:35] LABS: Glucose Point of Care 219 mg/dL (70-110)
[2021-09-14] MEDS: nitroglycerin 0.4 mg sublingual Tablet SUBLINGUAL (16:38)
[2021-09-14] MEDS: isosorbide mononitrate ER 30 mg Tablet PO (17:21)
--- NOTE | 2021-09-14 19:38 | PC.NURSE ---
Received report from PROSPER Benson. Patient resting in bed watching TV. Patient denies pain at this time. Does report brief episode of CP prior to having dinner. Discussed plan to keep patient for possible LHC in a few days. Patient verbalized understanding. No distress observed. Will continue to monitor.
[2021-09-14 20:25] LABS: Glucose Point of Care 207 mg/dL (70-110)
[2021-09-14] MEDS: gabapentin 100 mg Capsule PO (20:43)
[2021-09-14] MEDS: atorvastatin 40 mg Tablet PO (20:43)
[2021-09-15] VITALS (9 sets, daily range): BP systolic 115–179; BP diastolic 51–92; PULSE 60–67; RESP 15–20; TEMP 36.2; O2SAT 91–96
[2021-09-15 04:23] LABS: Basophils # 0.1 10^3/uL (0.0-0.1); Basophils % 0.6 %; Eosinophils # 0.2 10^3/uL (0.0-0.8); Eosinophils % 2.8 %; Hematocrit 33.3 % (37.0-47.0); Hemoglobin 10.9 g/dL (11.5-15.3); Lymphocytes # 2.4 10^3/uL (0.8-4.8); Mean Corpuscular HGB Conc 32.7 g/dL (30.0-36.0); Mean Corpuscular Hemoglobin 30.9 pg (28.0-34.0); Mean Corpuscular Volume 94.3 fl (81-99); Mean Platelet Volume 10.6 fL (7.4-10.4); Monocytes # 0.8 10^3/uL (0.2-0.9); Monocytes % 9.6 %; Neutrophils # 4.67 10^3/uL (1.8-7.7); Neutrophils % 57.3 %; Nucleated Red Blood Cells % 0 %; Platelet Count 198 10^3/cmm (130-400); Red Blood Count 3.53 10^6/uL (4.1-5.3); Red Cell Distribution Width 15.9 % (12.1-15.1); White Blood Count 8.2 10^3/uL (4.0-10.0)
[2021-09-15 04:54] LABS: Alanine Aminotransferase 17 U/L (0-33); Albumin Level 3.3 g/dL (3.5-5.2); Alkaline Phosphatase 115 IU/L (35-105); Anion Gap 14.7 (5-19); Aspartate Amino Transferase 18 U/L (0-32); Blood Urea Nitrogen 55 mg/dL (8-23); Carbon Dioxide 22 mmol/L (22-29); Chloride 101 mmol/L (98-107); Globulin 3.4 g/dL (1.3-4.6); Glucose 174 mg/dL (65-115); Magnesium 1.7 mg/dL (1.7-2.3); Osmolality Calculated 297 mOsm/kg (285-295); Potassium 3.7 mmol/L (3.5-5.1); Sodium 134 mmol/L (136-145); Total Bilirubin 0.6 mg/dL (0.15-1.2); Total Protein 6.7 g/dL (6.6-8.7)
[2021-09-15] MEDS: isosorbide mononitrate ER 60 mg Tablet PO (05:09)
[2021-09-15] MEDS: NIFEdipine ER (24 hr) 30 mg Tablet PO (05:09)
[2021-09-15] MEDS: insulin glargine 100 units/1 mL 12 UNIT SUBCUT (05:10)
[2021-09-15 06:33] LABS: Glucose Point of Care 193 mg/dL (70-110)
[2021-09-15] MEDS: aspirin 81 mg EC Tablet PO (08:04)
[2021-09-15] MEDS: insulin lispro 100 unit/1 mL SUBCUT ×2 (08:04→17:16)
[2021-09-15] MEDS: clopidogrel 75 mg Tablet PO (08:04)
[2021-09-15] MEDS: carvedilol 3.125 mg Tablet PO ×2 (08:04→17:17)
[2021-09-15] MEDS: sertraline 50 mg Tablet 25 MG PO (08:05)
[2021-09-15] MEDS: nystatin cream 30 gm 1 APPLIC TOPICAL ×2 (08:05→17:17)
[2021-09-15] MEDS: ascorbic acid 500 mg Tablet 1000 MG PO ×2 (08:05→17:17)
[2021-09-15] MEDS: sodium chloride 0.9% 1,000 ML 50 ML IV (10:35)
--- NOTE | 2021-09-15 10:38 | PM.PN ---
Subjective Subjective: This patient is being seen regularly in the hospital by Dr. Rome. She is a clinic patient of Dr. Aguirre. She is 70 years old and has a long history of multiple medical problems including diabetes, chronic kidney disease with a history of contrast-induced nephropathy, coronary disease, chronic anticoagulation with apixaban, history of heart failure, atrial fibrillation, hypertension, dyslipidemia, obesity and a pacemaker. She was admitted with chest discomfort. Her troponins were basically negative. However, a perfusion scan on September 04 revealed a large moderately severe area of attenuation in the distribution of the right coronary artery and circumflex. She was seen by Dr. Rome a couple days ago and coronary angiography was recommended. Her creatinine was 1.8 yesterday and she is being given some fluids. Today her creatinine is up to 2.0. Currently she is not having any discomfort in her chest. The apixaban has been replaced with Lovenox while she is in the hospital. Vitals/I&O/Wt Last Vital Signs Temp 98.2 F 09/14/21 16:00 Pulse 61 09/15/21 08:59 Resp 15 09/15/21 08:59 BP 152/63 09/15/21 08:59 Pulse Ox 94 09/15/21 08:59 09/14/21 09/15/21 09/15/21 22:59 06:59 14:59 Intake Total 720 / 960 Balance 720 / 960 Weight last 48 hrs Weight 207 lb 6.4 oz Physical Exam Narrative: GENERAL: General she is comfortable today HEENT: Exam within normal limits. NECK: Supple without jugular vein distention. The carotid upstroke is normal without bruits. BACK: Exam normal. LUNGS: Clear. HEART: Regular rate and rhythm. ABDOMEN: Benign without organomegaly or tenderness. EXTREMITIES: No edema. NEUROLOGIC: Exam normal. SKIN: Unremarkable. Data : 09/15/21 03:13 09/15/21 03:13 Micro: Microbiology 09/13/21 11:55 Urine Culture - Final Urine,Clean Catch Escherichia coli A&P Assessment and plan (1) Chronic kidney disease: Status: Acute (2) Atherosclerotic heart disease of [place] coronary artery with other forms of angina pectoris: Status: Acute (3) Angina at rest: Status: Acute (4) Chest pain: Status: Acute (5) Chronic anemia: Status: Acute (6) Acute renal failure: Status: Acute (7) Diabetes: Status: Acute (8) History of cardiac catheterization: Status: Acute (9) Status post placement of cardiac pacemaker: Status: Acute (10) HTN (hypertension): Status: Acute (11) Hyperlipidemia: Status: Acute (12) Morbid obesity: Status: Acute Plan Her creatinine is up to 2.0 from 1.8 yesterday. She is being started on some normal saline. Angiography is not yet indicated due to the rising creatinine. We will reassess this tomorrow morning. I did not change her medications today. She seems a little frustrated with the delay in getting the cardiac cath done. Attestations Medical Necessity Statement*: Hospital stay indicated for chest pain, abnormal stress test, worsening creatinine, multiple underlying comorbidities. Coding Level of Care Code Established Pt Acute [employer] for Kendall Mckeon Patient Type Established History Comprehensive Exam Comprehensive Medical Decision Making High Complexity Diagnoses Chronic kidney disease N18.9 Atherosclerotic heart disease of [place] coronary artery with other forms of angina pectoris I25.118 Angina at rest I20.8 Chest pain R07.9 Chronic anemia D64.9 Acute renal failure N17.9 Diabetes E11.9 History of cardiac catheterization Z98.890 Status post placement of cardiac pacemaker Z95.0 HTN (hypertension) I10 Hyperlipidemia E78.5 Morbid obesity E66.01 Time Spent (min) 40
[2021-09-15] MEDS: enoxaparin 100 mg/mL Syringe 90 MG SUBCUT ×2 (12:26→20:31)
--- NOTE | 2021-09-15 12:43 | PM.PN ---
Subjective Subjective: Patient was seen this morning, she tells me that she continues to have intermittent episodes of substernal chest pain, lasting a few seconds, pressure-like, no lightheadedness, no dizziness, shortness of breath, nonradiating, she is frustrated as her creatinine is up to 2.0, she tells me that she needs a cardiac catheterization, but she is frustrated that she cannot have a due to her kidney function. I advised patient that she has a history of contrast-induced nephropathy in the past, in 2019 she had a cardiac catheterization, resulting in contrast-induced nephropathy, requiring temporary dialysis, we will do our best to optimize her kidney function however she does have a significant risk of chondrosis adenopathy given her creatinine and her prior history Vitals/I&O/Wt Last Vital Signs Temp 98.2 F 09/14/21 16:00 Pulse 61 09/15/21 08:59 Resp 15 09/15/21 08:59 BP 152/63 09/15/21 08:59 Pulse Ox 94 09/15/21 08:59 09/14/21 09/15/21 09/15/21 22:59 06:59 14:59 Intake Total 720 / 960 Balance 720 / 960 Weight last 48 hrs Weight 94.075 kg Physical Exam Const: COMMON NORMALS: no acute distress and patient oriented x3 Resp: COMMON NORMALS: normal respiratory effort, No retractions, No use of accessory muscles and clear to auscultation bilaterally AUSCULTATION: clear to auscultation bilaterally Cardio: COMMON NORMALS: regular rate, regular rhythm, S1 normal heart sound present and S2 normal heart sound present RATE: regular rate RHYTHM: regular rhythm HEART SOUNDS: S1 normal heart sound present and S2 normal heart sound present GI: COMMON NORMALS: Normal to inspection, nondistended, normoactive bowel sounds present, Soft to palpation, non-tender and No hepatosplenomegaly present PALPATION: Yes Soft to palpation and Yes No hepatosplenomegaly present Extremity: COMMON NORMALS: no pedal edema Neuro: COMMON NORMALS: patient oriented x3 Psych: COMMON NORMALS: mental status grossly normal Data : 09/15/21 03:13 09/15/21 03:13 Micro: Microbiology 09/13/21 11:55 Urine Culture - Final Urine,Clean Catch Escherichia coli A&P Assessment and plan (1) Chest pain: Status: Acute (2) NSTEMI (non-ST elevated myocardial infarction): Status: Acute (3) Aortic stenosis: Status: Acute Qualifiers: Cardiac valve disease etiology: nonrheumatic Qualified Code(s): I35.0 - Nonrheumatic aortic (valve) stenosis (4) Atrial flutter: Status: Acute (5) Grade II diastolic dysfunction: Status: Acute Plan Chest pain -Serial EKGs, serial troponins, telemetry monitoring -Has received aspirin, metoprolol -Continue home Plavix, therapeutic Lovenox -CAD aspirin, Coreg, statin -Continue home Imdur -Recent history of positive stress test 1. Large sized perfusion abnormality of moderate severity of entire inferior, ?basal to mid inferolateral and apical lateral watters with moderate reversibility ?in mid to apical inferolateral and apical inferior watters on supine stress ?images. ?2. This may represent old myocardial infarction with moderate sathya-infarct ?ischemia in RCA/circumflex artery territory. ?3.? In absence of prone imaging and with no regional wall motion abnormality ?diaphragmatic attenuation artifact cannot be completely ruled out. ?4.? Transient ischemic dilation index mildly increased at 1.2.? This may ?represent hypertensive response/subendocardial ischemia. ?5. EKG portion of the study will be reported separately. -Cardiac echocardiogram Normal left ventricular size and systolic function, EF 59 %.? ?Wall motion abnormalities as mentioned above.Mildly increased ?left atrial size. ?Thickened mitral valve. Moderate mitral annular calcification. ?Trace mitral valve regurgitation. ?Thickened aortic valve. Trace aortic valve regurgitation. Aortic ?valve sclerosis. ?Mild tricuspid valve regurgitation. ?Trace pulmonary valve regurgitation. ?There is no pericardial effusion. ?There are no intracardiac masses. ?Technically difficult study because of the poor ultrasonic ?window. -Cardiology consulted for consideration of cardiac cath, creatinine 2.0, start gentle IV hydration -Full code -Therapeutic Lovenox for DVT prophylaxis FARRUKH on CKD, creatinine up to 2.0, start gentle IV hydration, has a history of contrast-induced nephropathy requiring temporary dialysis back in 2019 when she had a coronary angiogram -We will consult nephrology service Right upper quadrant abdominal pain, right upper quadrant ultrasound shows cholelithiasis, no evidence of cholecystitis, continue to monitor Type 2 diabetes mellitus, low-dose sliding scale, continue glargine Diastolic CHF, hold Bumex Chronic pain, continue home fentanyl Attestations Medical Necessity Statement*: Patient requires hospitalization for chest pain, NSTEMI, requiring cardiac catheterization Coding Level of Care Code Acute Phonograph Needle Tip Maker for g Fwd Diagnoses Chest pain R07.9 NSTEMI (non-ST elevated myocardial infarction) I21.4 Aortic stenosis I35.0 Cardiac valve disease etiology: nonrheumatic Atrial flutter I48.92 Grade II diastolic dysfunction I51.9
[2021-09-15] MEDS: pantoprazole 40 mg SDV IVP (14:03)
--- NOTE | 2021-09-15 14:46 | PM.CONSULT ---
Providers/Reason For Consult Consulting Physician/Specialty*: Nephrology Reason for Consult*: FARRUKH on CKD Attending Physician: Barrett Maloney MD Primary Care Provider: Betsy Nuno DO History of Present Illness History of Present Illness Thank for consultation comments I had the pleasure of reviewing this very pleasant 70-year-old female for evaluation of acute on chronic kidney disease with potential need for angiography. I have met her before, in September 2019 the time when she did have acute kidney injury in the setting of contrast nephropathy. On review of the old records, she did not require hemodialysis, however, did sustain a significant acute kidney injury. She now presents again with left-sided substernal chest pain with no associated symptoms. On and off for the last few days will present following admission. A perfusion scan on September 04 revealed a large moderately severe area of attenuation distribution the right coronary artery and circumflex and currently a coronary angiogram is recommended. Baseline creatinine appears to be 1.3-1.4 mg/dL. On admission it was 1.5 increasing to 1.8 yesterday and 2 mg/dL today. Diuretics held following admission, now receiving IV fluids today. Some urinary incontinence following hospitalization, this is unusual for her. Hemodynamics reviewed, remained stable following hospitalization. She denies any exposure to potentially nephrotoxic substances. No extremity edema, shortness of breath or other hypervolemic symptoms. No uremic symptoms. Review of Systems Narrative: ROS - 12 point review of systems completed per HPI and subjective assessment, this includes Constitutional: No weakness, fatigue Respiratory: No SOB on exertion, comfortable at rest CardioVasc: Chest pain, no palpitations Gastrointestinal: No nausea, no vomiting Neurological: No seizures, no AMS Derm: No new rashes, lesions or wounds Immunological: No seasonal and no food allergies Medications/Allergies Home Medications Medication Instructions Recorded Confirmed Last Taken Type insulin glargine 100 unit/mL (3 12 unit SUBCUT QAM ml 11/12/19 09/13/21 08/20/21 History mL) subcutaneous pen (Lantus Solostar U-100 Insulin) sennosides 8.6 mg-docusate sodium 1 tab PO DAILY PRN tab 11/12/19 09/13/21 02/27/20 History 50 mg tablet potassium chloride 10 mEq 10 meq PO DAILY@01/05/20 09/13/21 08/21/21 History tablet,extended release insulin aspart U-100 100 unit/mL See Rx Instructions .ROUTE .COMPLEX 05/25/20 09/13/21 12/06/20 History (3 mL) subcutaneous pen (Novolog Flexpen U-100 Insulin aspart) nitroglycerin 0.4 mg sublingual 0.4 mg SUBLINGUAL Q5M PRN 05/25/20 09/13/21 Unknown History tablet (Nitrostat) clopidogrel 75 mg tablet 75 mg PO DAILY@10/31/20 09/13/21 08/21/21 History dexlansoprazole 60 mg 60 mg PO DAILY@10/31/20 09/13/21 08/21/21 History capsule,biphase delayed release (Dexilant) gabapentin 100 mg capsule 100 mg PO BEDTIME@10/31/20 09/13/21 08/20/21 History sertraline 25 mg tablet 25 mg PO DAILY 10/31/20 09/13/21 08/21/21 History glipizide 10 mg tablet 10 mg PO BID 02/08/21 09/13/21 08/21/21 History methenamine hippurate 1 gram tablet 1 g PO BID #60 tab 06/29/21 09/13/21 08/21/21 Rx ascorbic acid (vitamin C) 1,000 mg 1,000 mg PO BID 08/21/21 09/13/21 08/21/21 History tablet (Vitamin C) fentanyl 25 mcg/hr transdermal 25 mcg TRANSDERMAL Q72H 08/21/21 09/13/21 09/13/21 History patch isosorbide mononitrate 30 mg 30 mg PO QPM #60 tab 08/23/21 09/13/21 Unknown Rx tablet,extended release 24 hr apixaban 2.5 mg tablet (Eliquis) 2.5 mg PO BID 09/13/21 09/13/21 Unknown History bumetanide 2 mg tablet 2 mg PO QAM 09/13/21 09/13/21 Unknown History isosorbide mononitrate 60 mg 60 mg PO QAM 09/13/21 09/13/21 Unknown History tablet,extended release 24 hr nifedipine 30 mg tablet,extended 30 mg PO QAM 09/13/21 09/13/21 Unknown History release 24 hr sertraline 50 mg tablet 50 mg PO DAILY 09/13/21 09/13/21 Unknown History Allergies Allergy/AdvReac Type Severity Reaction Status Date / Time citalopram [From Celexa] Allergy Unknown Verified 09/13/21 08:57 duloxetine [From Cymbalta] Allergy Unknown Verified 09/13/21 08:57 prochlorperazine Allergy ALGY-Anaphy Verified 09/13/21 08:57 [From Compazine] laxis shellfish derived Allergy Unknown Verified 09/13/21 08:57 sucralfate [From Carafate] Allergy Unknown Verified 09/13/21 08:57 trazodone Allergy Unknown Verified 09/13/21 08:57 zaleplon [From Sonata] Allergy Unknown Verified 09/13/21 08:57 Current Medications Generic Name Dose Route Start Last Admin Trade Name Freq PRN Reason Stop Dose Admin Ascorbic Acid 1,000 mg 09/13/21 20:46 09/15/21 08:05 Ascorbic Acid 500 Mg Tablet PO 1,000 mg BID PINA Administration Aspirin 81 mg 09/14/21 09:00 09/15/21 08:04 Aspirin 81 Mg Ec Tablet PO 81 mg DAILY PINA Administration Atorvastatin Calcium 40 mg 09/13/21 21:00 09/14/21 20:43 Atorvastatin 40 Mg Tablet PO 40 mg BEDTIME PINA Administration Carvedilol 3.125 mg 09/13/21 20:46 09/15/21 08:04 Carvedilol 3.125 Mg Tablet PO 3.125 mg BID PINA Administration Clopidogrel Bisulfate 75 mg 09/14/21 08:00 09/15/21 08:04 Clopidogrel 75 Mg Tablet PO 75 mg DAILY@08 PINA Administration Enoxaparin Sodium 90 mg 09/14/21 11:15 09/15/21 12:26 Enoxaparin 100 Mg/Ml Syringe 1 mg/kg (90 mg) 90 mg SUBCUT Administration Q12H PINA Fentanyl 1 patch 09/13/21 20:46 09/13/21 21:28 Fentanyl 25 Mcg Patch TRANSDERMA 1 patch Q72H PINA Administration Gabapentin 100 mg 09/13/21 20:46 09/14/21 20:43 Gabapentin 100 Mg Capsule PO 100 mg BEDTIME@20 PINA Administration Sodium Chloride 1,000 mls @ 75 mls/hr 09/15/21 08:00 09/15/21 10:35 Sodium Chloride 0.9% IV 50 mls/hr .[id number] PINA Administration Insulin Glargine 12 unit 09/14/21 06:00 09/15/21 05:10 Insulin Glargine 100 Units/1 Ml SUBCUT 12 unit QAM PINA Administration Insulin Human Lispro 0 unit 09/13/21 20:46 09/15/21 12:32 Insulin Lispro 100 Unit/1 Ml SUBCUT Not Given TIDWM [facility] Protocol Isosorbide Mononitrate 60 mg 09/14/21 06:00 09/15/21 05:09 Isosorbide Mononitrate Er 60 Mg Tablet PO 60 mg QAM PINA Administration Isosorbide Mononitrate 30 mg 09/13/21 20:46 09/14/21 17:21 Isosorbide Mononitrate Er 30 Mg Tablet PO 30 mg QPM PINA Administration Nifedipine 30 mg 09/14/21 06:00 09/15/21 05:09 Nifedipine Er (24 Hr) 30 Mg Tablet PO 30 mg QAM [facility] Administration Nitroglycerin 0.4 mg 09/13/21 20:46 09/14/21 16:38 Nitroglycerin 0.4 Mg Sublingual Tablet SUBLINGUAL 1 tab Q5M PRN Administration Chest Pain Nystatin 1 applic 09/14/21 09:00 09/15/21 08:05 Nystatin Cream 30 Gm TOPICAL 1 applic BID PINA Administration Pantoprazole Sodium 40 mg 09/13/21 13:30 09/15/21 14:03 Pantoprazole 40 Mg Sdv IVP 40 mg Q24H PINA Administration Sertraline HCl 25 mg 09/14/21 09:00 09/15/21 08:05 Sertraline 50 Mg Tablet PO 25 mg DAILY PINA Administration PFSH Acute PFSH: Medical History (Updated 09/15/21 @ 10:43 by Ludin Perdomo MD) Anticoagulation adequate with anticoagulant therapy Aortic stenosis Atrial fibrillation by electrocardiogram CAD (coronary artery disease) CHF (congestive heart failure) Chronic kidney insufficiency Dental caries Diabetes DJD (degenerative joint disease) Gastroenteritis GERD (gastroesophageal reflux disease) HTN (hypertension) Hypercholesterolemia Hyperlipidemia Morbid obesity Recurrent UTI Long history of recurrent UTIs suspicious for CHRONIC CYSTITIS. ESBL E. coli documented in 2019. Renal stone Rhabdomyolysis Sinus pause Urinary incontinence Surgical History (Updated 09/15/21 @ 10:43 by Ludin Perdomo MD) H/O colonoscopy yrs ago History of cardiac catheterization History of hernia repair History of hip surgery History of hysterectomy History of knee surgery History of sinus surgery History of tonsillectomy History of umbilical hernia repair Pacemaker Status post placement of cardiac pacemaker Family History Father , in his 60's Lung disease Mother , 99 Hypertension Other Diabetes Stroke Denies family history of CAD (coronary artery disease) Clotting disorder Dementia Chronic kidney disease (CKD) Anesthesia complication Bleeding disorder Social History Quit status (tobacco): has quit using tobacco Former quit date comment: Smoking in her 20s Alcohol intake: never Caregiver/support person: Yes (Home health services Friday) Lives independently: Yes Housing: House Marital status: Current occupational status: retired History of recent travel: No Current gender identity: Female Vitals/I&O/Wt Last Vital Signs Temp 98.2 F 09/14/21 16:00 Pulse 62 09/15/21 13:31 Resp 18 09/15/21 13:31 BP 152/63 09/15/21 13:31 Pulse Ox 96 09/15/21 13:31 09/14/21 09/15/21 09/15/21 22:59 06:59 14:59 Intake Total 720 / 960 480 / 480 Output Total 300 / 300 Balance 720 / 960 180 / 180 Weight last 48 hrs Weight 94.075 kg Physical Exam Narrative: Constitutional: Awake, comfortable HEENT: Wet mucosa, no jvp, non icteric Lungs: Bilaterally clear without discernible wheeze or rales in all lung zones CVS: S1 S2, no murmurs Abdo: Soft, BS ok Ext 4: Minimal edema, peripheral perfusion with no cyanosis Neurological: Grossly non-focal Data : 09/15/21 03:13 09/15/21 03:13 Micro: Microbiology 09/13/21 11:55 Urine Culture - Final Urine,Clean Catch Escherichia coli A&P Assessment and plan (1) Angina at rest: 1. Acute on chronic kidney disease Unclear etiology, possibly prerenal, possibly obstructive as she does have a change in her urinary symptoms with new incontinence. I agree with IV fluid at 75 mL/h, Place José catheter. If renal function continues to deteriorate tomorrow, will broaden evaluation including renal imaging etc. Defer this for the time being pending a.m. labs. Avoid usual nephrotoxic agents Dose medication for GFR less than 30 2. Acute coronary syndrome/angina I appreciate the recommendation for coronary angiography. At the end of the day, standard recommendations include minimization of intravenous contrast, gentle IV hydration before and after the procedure. Other measures are found to be ineffective i.e. Mucomyst, preemptive hemodialysis etc. I did discuss this with her including her potential risk for acute kidney injury that may result in temporary need for hemodialysis and even, rarely, chronic need for dialysis as well. 3. Chemistry Minor noncritical aberration continue to follow 4. Hemodynamics Blood pressure and pulse remain stable, no changes to antihypertensive therapy Thank you for consultation, it is a pleasure to follow these cases with you Exam and interview performed with aid of bedside RN using telemedicine Time spent 20 min inc > 50% of time in face to face counseling Jordy Ceja MD [facility] [phone] Status: Acute Coding Level of Care Code Acute Registered Radiologic Technologist for Kendall Mckeon Diagnoses Angina at rest I20.8
[2021-09-15 16:58] LABS: Glucose Point of Care 192 mg/dL (70-110)
[2021-09-15 16:59] LABS: Glucose Point of Care 139 mg/dL (70-110)
[2021-09-15] MEDS: isosorbide mononitrate ER 30 mg Tablet PO (17:17)
--- NOTE | 2021-09-15 19:41 | PC.NURSE ---
Received report from RHEA Merlos. Patient resting in bed watching tv. Patient has costa catheter in place. Patient denies pain presently. No distress observed. Discussed IV fluids. Patient verbalized complete understanding. No other distress observed. Will continue to monitor.
[2021-09-15 20:19] LABS: Glucose Point of Care 175 mg/dL (70-110)
[2021-09-15] MEDS: atorvastatin 40 mg Tablet PO (20:31)
[2021-09-15] MEDS: gabapentin 100 mg Capsule PO (20:31)
[2021-09-16] VITALS (16 sets, daily range): BP systolic 129–152; BP diastolic 58–76; PULSE 60–70; RESP 12–26; TEMP 36.4–36.8; O2SAT 93–96
[2021-09-16] MEDS: sodium chloride 0.9% 1,000 ML 75 ML IV ×2 (02:00→17:33)
[2021-09-16] MEDS: NIFEdipine ER (24 hr) 30 mg Tablet PO (05:20)
[2021-09-16] MEDS: isosorbide mononitrate ER 60 mg Tablet PO (05:20)
[2021-09-16 05:24] LABS: Basophils # 0.1 10^3/uL (0.0-0.1); Basophils % 0.7 %; Eosinophils # 0.2 10^3/uL (0.0-0.8); Eosinophils % 3.5 %; Hematocrit 31.7 % (37.0-47.0); Hemoglobin 10.4 g/dL (11.5-15.3); Lymphocytes # 2.3 10^3/uL (0.8-4.8); Lymphocytes % 32.9 %; Mean Corpuscular HGB Conc 32.8 g/dL (30.0-36.0); Mean Corpuscular Hemoglobin 30.8 pg (28.0-34.0); Mean Corpuscular Volume 93.8 fl (81-99); Mean Platelet Volume 10.9 fL (7.4-10.4); Monocytes # 0.6 10^3/uL (0.2-0.9); Monocytes % 9.2 %; Neutrophils # 3.67 10^3/uL (1.8-7.7); Neutrophils % 53.1 %; Nucleated Red Blood Cells % 0 %; Platelet Count 194 10^3/cmm (130-400); Red Blood Count 3.38 10^6/uL (4.1-5.3); Red Cell Distribution Width 15.9 % (12.1-15.1); White Blood Count 6.9 10^3/uL (4.0-10.0)
[2021-09-16] MEDS: insulin glargine 100 units/1 mL 12 UNIT SUBCUT (05:39)
[2021-09-16 05:49] LABS: Alanine Aminotransferase 15 U/L (0-33); Albumin Level 3.3 g/dL (3.5-5.2); Alkaline Phosphatase 112 IU/L (35-105); Anion Gap 14.8 (5-19); Aspartate Amino Transferase 13 U/L (0-32); Blood Urea Nitrogen 46 mg/dL (8-23); Calcium 8.7 mg/dL (8.5-10.5); Carbon Dioxide 21 mmol/L (22-29); Chloride 106 mmol/L (98-107); Globulin 2.5 g/dL (1.3-4.6); Glucose 148 mg/dL (65-115); Magnesium 1.7 mg/dL (1.7-2.3); Osmolality Calculated 301 mOsm/kg (285-295); Phosphorus 3.1 mg/dL (2.5-4.5); Potassium 3.8 mmol/L (3.5-5.1); Sodium 138 mmol/L (136-145); Total Bilirubin 0.4 mg/dL (0.15-1.2); Total Protein 5.8 g/dL (6.6-8.7)
[2021-09-16 06:52] LABS: Glucose Point of Care 145 mg/dL (70-110)
--- NOTE | 2021-09-16 07:59 | PM.PN ---
Subjective Subjective: Melora feels fine this morning. No issues overnight. Creatinine is down to 1.7 today which is about where it was when she came in. Vitals/I&O/Wt Last Vital Signs Temp 97.5 F L 09/16/21 04:58 Pulse 70 09/16/21 07:59 Resp 16 09/16/21 07:59 BP 143/58 09/16/21 04:58 Pulse Ox 94 09/16/21 07:59 09/15/21 09/16/21 09/16/21 22:59 06:59 14:59 Intake Total 695 / 1175 545 / 1720 Output Total 350 / 650 Balance 345 / 525 545 / 1070 Physical Exam Narrative: GENERAL: In general she seems comfortable HEENT: Exam within normal limits. NECK: Supple without jugular vein distention. The carotid upstroke is normal without bruits. BACK: Exam normal. LUNGS: Clear. HEART: Regular rate and rhythm. ABDOMEN: Benign without organomegaly or tenderness. EXTREMITIES: No edema. NEUROLOGIC: Exam normal. SKIN: Unremarkable. Urinary Catheter Management: José: Cath Placed During This Visit: yes Reason for Continuing Indwelling Catheter: Acute Urinary Retention or Obstruction Urinary Catheter Date of Insertion: 09/15/21 Urinary Catheter Time of Insertion: 16:57 Data : 09/16/21 03:55 09/16/21 03:55 Micro: Microbiology 09/13/21 11:55 Urine Culture - Final Urine,Clean Catch Escherichia coli A&P Assessment and plan (1) Morbid obesity: Status: Acute (2) Hyperlipidemia: Status: Acute (3) HTN (hypertension): Status: Acute (4) History of cardiac catheterization: Status: Acute (5) Status post placement of cardiac pacemaker: Status: Acute (6) Chronic kidney disease: Status: Acute (7) Atherosclerotic heart disease of [place] coronary artery with other forms of angina pectoris: Status: Acute (8) Chest pain: Status: Acute (9) Atrial flutter: Status: Acute (10) Heart failure with preserved ejection fraction: Status: Acute Plan We will reassess tomorrow for angiography. I will discuss this with Dr. Rome tomorrow. Attestations Medical Necessity Statement*: Requires continued hospitalization for treatment for coronary disease, chest pain and chronic renal insufficiency. Coding Level of Care Code Established Pt Acute Feed Mixer Helper for Chg Fwd Patient Type Established History Detailed Exam Detailed Medical Decision Making Moderate Complexity Diagnoses Morbid obesity E66.01 Hyperlipidemia E78.5 HTN (hypertension) I10 History of cardiac catheterization Z98.890 Status post placement of cardiac pacemaker Z95.0 Chronic kidney disease N18.9 Atherosclerotic heart disease of [place] coronary artery with other forms of angina pectoris I25.118 Chest pain R07.9 Atrial flutter I48.92 Heart failure with preserved ejection fraction I50.30 Time Spent (min) 30
--- NOTE | 2021-09-16 08:16 | PM.PN ---
Subjective Subjective: has intermittent CP. no n/v/f/chills. no diarrhea. no leg pains.no sob at rest Medications: Reviewed: Yes Medication Review Details: Current Medications Acetaminophen (Acetaminophen 325 Mg Tablet) 650 mg PO Q6H PRN PRN Reason: Mild/Mod Pain Or Temp >/= 101 Ascorbic Acid (Ascorbic Acid 500 Mg Tablet) 1,000 mg PO BID [facility] Last Admin: 09/15/21 17:17 Dose: 1,000 mg Documented by: Aspirin (Aspirin 81 Mg Ec Tablet) 81 mg PO DAILY [facility] Last Admin: 09/15/21 08:04 Dose: 81 mg Documented by: Atorvastatin Calcium (Atorvastatin 40 Mg Tablet) 40 mg PO BEDTIME [facility] Last Admin: 09/15/21 20:31 Dose: 40 mg Documented by: Carvedilol (Carvedilol 3.125 Mg Tablet) 3.125 mg PO BID [facility] Last Admin: 09/15/21 17:17 Dose: 3.125 mg Documented by: Clopidogrel Bisulfate (Clopidogrel 75 Mg Tablet) 75 mg PO DAILY@08 [facility] Last Admin: 09/15/21 08:04 Dose: 75 mg Documented by: Dextrose (Dextrose 50% Syringe 50 Ml) 25 ml IVP ONCE PRN; Protocol PRN Reason: hypoglycemia protocol Dextrose (Dextrose 50% Syringe 50 Ml) 50 ml IVP PRN PRN; Protocol PRN Reason: hypoglycemia protocol Enoxaparin Sodium (Enoxaparin 100 Mg/Ml Syringe) 90 mg 1 mg/kg (90 mg) SUBCUT Q12H [facility] Last Admin: 09/15/21 20:31 Dose: 90 mg Documented by: Fentanyl (Fentanyl 25 Mcg Patch) 1 patch TRANSDERMA Q72H [facility] Last Admin: 09/13/21 21:28 Dose: 1 patch Documented by: Gabapentin (Gabapentin 100 Mg Capsule) 100 mg PO BEDTIME@20 [facility] Last Admin: 09/15/21 20:31 Dose: 100 mg Documented by: Glucagon (Glucagon 1 Mg/Ml Inj 1 Ml) 1 mg IM ONCE PRN; Protocol PRN Reason: Adult Acute Hypoglycemia Prot. Dextrose (D5w) 500 mls @ 100 mls/hr IV ONCE PRN; Protocol PRN Reason: Adult Acute Hypoglycemia Prot Sodium Chloride (Sodium Chloride 0.9%) 1,000 mls @ 75 mls/hr IV .[id number] [facility] Last Admin: 09/16/21 02:00 Dose: 75 mls/hr Documented by: Insulin Glargine (Insulin Glargine 100 Units/1 Ml) 12 [facility] Last Admin: 09/16/21 05:39 Dose: 12 unit Documented by: Insulin Human Lispro (Insulin Lispro 100 Unit/1 Ml) 0 unit SUBCUT TIDWM [facility]; Protocol Last Admin: 09/15/21 17:16 Dose: 4 unit Documented by: Isosorbide Mononitrate (Isosorbide Mononitrate Er 60 Mg Tablet) [facility] Last Admin: 09/16/21 05:20 Dose: 60 mg Documented by: Isosorbide Mononitrate (Isosorbide Mononitrate Er 30 Mg Tablet) 30 mg PO QPM [facility] Last Admin: 09/15/21 17:17 Dose: 30 mg Documented by: Morphine Sulfate (Morphine 4 Mg/Ml Sdv 1 Ml) 1 mg IVP Q4H PRN PRN Reason: SEVERE PAIN Naloxone HCl (Naloxone 0.4 Mg/Ml Sdv) 0.1 mg IVP Q2M PRN PRN Reason: OPIATERV Nifedipine (Nifedipine Er (24 Hr) 30 Mg Tablet) 30 mg PO [facility] Last Admin: 09/16/21 05:20 Dose: 30 mg Documented by: Nitroglycerin (Nitroglycerin 0.4 Mg Sublingual Tablet) 0.4 mg SUBLINGUAL Q5M PRN PRN Reason: Chest Pain Last Admin: 09/14/21 16:38 Dose: 1 tab Documented by: Nystatin (Nystatin Cream 30 Gm) 1 applic TOPICAL BID [facility] Last Admin: 09/15/21 17:17 Dose: 1 applic Documented by: Ondansetron HCl (Ondansetron 2 Mg/Ml Sdv 2 Ml) 4 mg IVP Q8H PRN PRN Reason: vomiting, or N/V if npo Ondansetron HCl (Ondansetron 2 Mg/Ml Sdv 2 Ml) 4 mg IVP Q6H PRN PRN Reason: NAUSEA AND VOMITING Pantoprazole Sodium (Pantoprazole 40 Mg Sdv) 40 mg IVP Q24H [facility] Last Admin: 09/15/21 14:03 Dose: 40 mg Documented by: Sertraline HCl (Sertraline 50 Mg Tablet) 25 mg PO DAILY [facility] Last Admin: 09/15/21 08:05 Dose: 25 mg Documented by: Vitals/I&O/Wt Last Vital Signs Temp 97.5 F L 09/16/21 04:58 Pulse 70 09/16/21 07:59 Resp 16 09/16/21 07:59 BP 143/58 09/16/21 04:58 Pulse Ox 94 09/16/21 07:59 09/15/21 09/16/21 09/16/21 22:59 06:59 14:59 Intake Total 695 / 1175 545 / 1720 Output Total 350 / 650 Balance 345 / 525 545 / 1070 Physical Exam Narrative: obese, in bed, NARD vss heent- nc/at, eomi, anicteric neck- no jvp lung- clear heart- reg abd soft, nt, nd, + bs ext- no edema neuro- a,a, o x3 Urinary Catheter Management: José: Cath Placed During This Visit: yes Reason for Continuing Indwelling Catheter: Acute Urinary Retention or Obstruction Urinary Catheter Date of Insertion: 09/15/21 Urinary Catheter Time of Insertion: 16:57 Data : 09/16/21 03:55 09/16/21 03:55 Micro: Microbiology 09/13/21 11:55 Urine Culture - Final Urine,Clean Catch Escherichia coli A&P Assessment and plan (1) Chronic kidney disease: 70 yr old female obesity, htn, hyperlipidemia, CAD, diastolic dysfunction PPM- a flutter. ?perfusion scan on September 04 revealed a large moderately severe area of attenuation distribution the right coronary artery and circumflex and currently a coronary angiogram is recommended. 1. CKD stage 3 a- from obesity, dm, htn ua w/ 1+ proteinuria - e coli UTI 1b. FARRUKH on admission can be CRS. -check renal us -monitor renal fxn 2. CAD- abnormal stress test, known CAD- multiple cardiac risk fasctors. agree w/ cardiac cath -monitor renal fxn -if possible give 1/2 ns for 6 hrs pre and post cath -mionimize dye load. 3. anemia - check iron studies. neg SPEP in 2019 4. DM control 5. mild met acidosis - from NS and FARRUKH seen and examined w/ RN -telehealth visit time spent 30 min Status: Acute Plan as above Attestations Medical Necessity Statement*: + stress test, farrukh, CKD stage 3a, dm Time Spent in Patient Care: 16 - 35 minutes (>than 50% of time spent in counselling and/or direct pt care on unit). Coding Level of Care Code Acute Breakdown Person for Kendall Fwd Diagnoses Chronic kidney disease N18.9
[2021-09-16] MEDS: ascorbic acid 500 mg Tablet 1000 MG PO ×2 (08:25→17:34)
[2021-09-16] MEDS: carvedilol 3.125 mg Tablet PO ×2 (08:25→17:34)
[2021-09-16] MEDS: insulin lispro 100 unit/1 mL SUBCUT ×3 (08:26→17:34)
[2021-09-16] MEDS: clopidogrel 75 mg Tablet PO (08:26)
[2021-09-16] MEDS: aspirin 81 mg EC Tablet PO (08:26)
[2021-09-16] MEDS: sertraline 50 mg Tablet 25 MG PO (08:26)
[2021-09-16] MEDS: nystatin cream 30 gm 1 APPLIC TOPICAL (08:36)
[2021-09-16] MEDS: cefTRIAXone 1,000 MG in sodium chloride 0.9% (plus) 50 ML 100 MG IV (09:28)
[2021-09-16 11:13] LABS: Glucose Point of Care 188 mg/dL (70-110)
[2021-09-16] MEDS: enoxaparin 100 mg/mL Syringe 90 MG SUBCUT ×2 (11:27→22:14)
[2021-09-16] MEDS: pantoprazole 40 mg SDV IVP (13:40)
--- NOTE | 2021-09-16 13:50 | PM.PN ---
Subjective Subjective: Patient was seen this morning, she sitting, in bed, enjoying breakfast, she still concerned that her creatinine is 1.7, she tells me she really wants to have the angiogram Vitals/I&O/Wt Last Vital Signs Temp 97.5 F L 09/16/21 04:58 Pulse 60 09/16/21 13:24 Resp 16 09/16/21 13:24 BP 148/66 09/16/21 13:24 Pulse Ox 95 09/16/21 13:24 09/15/21 09/16/21 09/16/21 22:59 06:59 14:59 Intake Total 695 / 1175 545 / 1720 607.5 / 607.5 Output Total 350 / 650 1000 / 1000 Balance 345 / 525 545 / 1070 -392.5 / -392.5 Physical Exam Const: COMMON NORMALS: no acute distress and patient oriented x3 Resp: COMMON NORMALS: normal respiratory effort, No retractions, No use of accessory muscles and clear to auscultation bilaterally AUSCULTATION: clear to auscultation bilaterally Cardio: COMMON NORMALS: regular rate, regular rhythm, S1 normal heart sound present and S2 normal heart sound present RATE: regular rate RHYTHM: regular rhythm HEART SOUNDS: S1 normal heart sound present and S2 normal heart sound present GI: COMMON NORMALS: Normal to inspection, nondistended, normoactive bowel sounds present, Soft to palpation and non-tender PALPATION: Yes Soft to palpation Extremity: COMMON NORMALS: no pedal edema Neuro: COMMON NORMALS: patient oriented x3 Psych: COMMON NORMALS: mental status grossly normal Urinary Catheter Management: José: Cath Placed During This Visit: yes Reason for Continuing Indwelling Catheter: Acute Urinary Retention or Obstruction Urinary Catheter Date of Insertion: 09/15/21 Urinary Catheter Time of Insertion: 16:57 Data : 09/16/21 03:55 09/16/21 03:55 A&P Assessment and plan (1) Chest pain: Status: Acute (2) NSTEMI (non-ST elevated myocardial infarction): Status: Acute (3) Aortic stenosis: Status: Acute Qualifiers: Cardiac valve disease etiology: nonrheumatic Qualified Code(s): I35.0 - Nonrheumatic aortic (valve) stenosis (4) Atrial flutter: Status: Acute (5) Grade II diastolic dysfunction: Status: Acute Plan Chest pain -Serial EKGs, serial troponins, telemetry monitoring -Has received aspirin, metoprolol -Continue home Plavix, therapeutic Lovenox -CAD aspirin, Coreg, statin -Continue home Imdur -Recent history of positive stress test 1. Large sized perfusion abnormality of moderate severity of entire inferior, ?basal to mid inferolateral and apical lateral watters with moderate reversibility ?in mid to apical inferolateral and apical inferior watters on supine stress ?images. ?2. This may represent old myocardial infarction with moderate sathya-infarct ?ischemia in RCA/circumflex artery territory. ?3.? In absence of prone imaging and with no regional wall motion abnormality ?diaphragmatic attenuation artifact cannot be completely ruled out. ?4.? Transient ischemic dilation index mildly increased at 1.2.? This may ?represent hypertensive response/subendocardial ischemia. ?5. EKG portion of the study will be reported separately. -Cardiac echocardiogram Normal left ventricular size and systolic function, EF 59 %.? ?Wall motion abnormalities as mentioned above.Mildly increased ?left atrial size. ?Thickened mitral valve. Moderate mitral annular calcification. ?Trace mitral valve regurgitation. ?Thickened aortic valve. Trace aortic valve regurgitation. Aortic ?valve sclerosis. ?Mild tricuspid valve regurgitation. ?Trace pulmonary valve regurgitation. ?There is no pericardial effusion. ?There are no intracardiac masses. ?Technically difficult study because of the poor ultrasonic ?window. -Cardiology consulted for consideration of cardiac cath, creatinine 1.7, gentle IV hydration -Full code -Therapeutic Lovenox for DVT prophylaxis FARRUKH on CKD, creatinine up to 1.7, start gentle IV hydration, has a history of contrast-induced nephropathy which she had a coronary angiogram, -On IV fluids -nephrology on consult Right upper quadrant abdominal pain, right upper quadrant ultrasound shows cholelithiasis, no evidence of cholecystitis, continue to monitor Type 2 diabetes mellitus, low-dose sliding scale, continue glargine Diastolic CHF, hold Bumex Chronic pain, continue home fentanyl Attestations Medical Necessity Statement*: Patient requires hospitalization for chest pain, COPD, proceeding with coronary angiography Coding Level of Care Code Acute Jewel Hole Cornerer for g Fwd Diagnoses Chest pain R07.9 NSTEMI (non-ST elevated myocardial infarction) I21.4 Aortic stenosis I35.0 Cardiac valve disease etiology: nonrheumatic Atrial flutter I48.92 Grade II diastolic dysfunction I51.9
--- NOTE | 2021-09-16 14:59 | PC.NURSE ---
Physician Orders Start NS at 75cc/hr at 1800
[2021-09-16 16:58] LABS: Glucose Point of Care 167 mg/dL (70-110)
[2021-09-16] MEDS: isosorbide mononitrate ER 30 mg Tablet PO (17:34)
[2021-09-16 19:46] LABS: Glucose Point of Care 171 mg/dL (70-110)
[2021-09-16] MEDS: atorvastatin 40 mg Tablet PO (21:18)
[2021-09-16] MEDS: fentaNYL 25 mcg Patch 1 PATCH TRANSDERMA (21:18)
[2021-09-16] MEDS: gabapentin 100 mg Capsule PO (21:18)
--- NOTE | 2021-09-16 21:18 | PC.NURSE ---
Addendum entered by Ana Lilia Holley RN 09/17/21 02:07: witnessed appropriate disposal of intact fentanyl patch removed from pt. Original Note: Fentanyl patch removed from left chest prior to placing new one. Wasted with RN witness.
[2021-09-17] VITALS (27 sets, daily range): BP systolic 91–167; BP diastolic 52–82; PULSE 59–71; RESP 10–24; TEMP 36.3–36.7; O2SAT 85–100
[2021-09-17 04:47] LABS: Basophils % 0.6 %; Eosinophils # 0.3 10^3/uL (0.0-0.8); Eosinophils % 3.8 %; Hematocrit 31.8 % (37.0-47.0); Hemoglobin 10.4 g/dL (11.5-15.3); Lymphocytes # 2.2 10^3/uL (0.8-4.8); Lymphocytes % 31.2 %; Mean Corpuscular HGB Conc 32.7 g/dL (30.0-36.0); Mean Corpuscular Volume 94.6 fl (81-99); Monocytes # 0.7 10^3/uL (0.2-0.9); Neutrophils % 53.7 %; Nucleated Red Blood Cells % 0 %; Platelet Count 184 10^3/cmm (130-400); Red Blood Count 3.36 10^6/uL (4.1-5.3); Red Cell Distribution Width 15.9 % (12.1-15.1); White Blood Count 6.9 10^3/uL (4.0-10.0)
[2021-09-17 05:09] LABS: Alanine Aminotransferase 15 U/L (0-33); Albumin Level 3.2 g/dL (3.5-5.2); Alkaline Phosphatase 110 IU/L (35-105); Anion Gap 12.8 (5-19); Aspartate Amino Transferase 14 U/L (0-32); Blood Urea Nitrogen 37 mg/dL (8-23); Calcium 8.5 mg/dL (8.5-10.5); Carbon Dioxide 21 mmol/L (22-29); Chloride 110 mmol/L (98-107); Globulin 2.8 g/dL (1.3-4.6); Glucose 139 mg/dL (65-115); Magnesium 1.6 mg/dL (1.7-2.3); Osmolality Calculated 301 mOsm/kg (285-295); Phosphorus 2.7 mg/dL (2.5-4.5); Potassium 3.8 mmol/L (3.5-5.1); Sodium 140 mmol/L (136-145); Total Bilirubin 0.4 mg/dL (0.15-1.2); Uric Acid 5.8 mg/dL (2.4-5.7)
[2021-09-17 05:22] LABS: Calcium 8.2 mg/dL (8.5-10.5)
[2021-09-17 05:30] LABS: Parathyroid Hormone 127.6 pg/mL (15-65)
[2021-09-17 05:43] LABS: Ferritin 510 ng/mL (15-150); Iron 68 ug/dL (37-145); Total Iron Binding Capacity 194 mcg/dl; Unsaturated Iron Binding 126 ug/dL (112-347)
[2021-09-17] MEDS: isosorbide mononitrate ER 60 mg Tablet PO (05:58)
[2021-09-17] MEDS: NIFEdipine ER (24 hr) 30 mg Tablet PO (05:58)
[2021-09-17 05:59] LABS: 25 Hydroxy Vitamin D 20 ng/mL (30-100)
--- NOTE | 2021-09-17 07:10 | PC.NURSE ---
Bedside report received from Siomara Rn patient alert and engaged in conversation and plan of care
[2021-09-17 07:39] LABS: Glucose Point of Care 127 mg/dL (70-110)
[2021-09-17] MEDS: clopidogrel 75 mg Tablet PO (07:45)
[2021-09-17] MEDS: sodium chloride 0.9% 1,000 ML 75 ML IV (07:45)
--- NOTE | 2021-09-17 08:50 | P.PN_ITS ---
Subjective Subjective: intermittent CP. no n/v/f/c/rowe/d/sob Medications: Reviewed: Yes Medication Review Details: Current Medications Acetaminophen (Acetaminophen 325 Mg Tablet) 650 mg PO Q6H PRN PRN Reason: Mild/Mod Pain Or Temp >/= 101 Ascorbic Acid (Ascorbic Acid 500 Mg Tablet) 1,000 mg PO BID [facility] Last Admin: 09/16/21 17:34 Dose: 1,000 mg Documented by: Aspirin (Aspirin 81 Mg Ec Tablet) 81 mg PO DAILY [facility] Last Admin: 09/16/21 08:26 Dose: 81 mg Documented by: Atorvastatin Calcium (Atorvastatin 40 Mg Tablet) 40 mg PO BEDTIME [facility] Last Admin: 09/16/21 21:18 Dose: 40 mg Documented by: Carvedilol (Carvedilol 3.125 Mg Tablet) 3.125 mg PO BID [facility] Last Admin: 09/16/21 17:34 Dose: 3.125 mg Documented by: Clopidogrel Bisulfate (Clopidogrel 75 Mg Tablet) 75 mg PO DAILY@08 [facility] Last Admin: 09/17/21 07:45 Dose: 75 mg Documented by: Dextrose (Dextrose 50% Syringe 50 Ml) 25 ml IVP ONCE PRN; Protocol PRN Reason: hypoglycemia protocol Dextrose (Dextrose 50% Syringe 50 Ml) 50 ml IVP PRN PRN; Protocol PRN Reason: hypoglycemia protocol Enoxaparin Sodium (Enoxaparin 100 Mg/Ml Syringe) 90 mg 1 mg/kg (90 mg) SUBCUT Q12H [facility] Last Admin: 09/16/21 22:14 Dose: 90 mg Documented by: Fentanyl (Fentanyl 25 Mcg Patch) 1 patch TRANSDERMA Q72H [facility] Last Admin: 09/16/21 21:18 Dose: 1 patch Documented by: Gabapentin (Gabapentin 100 Mg Capsule) 100 mg PO BEDTIME@20 [facility] Last Admin: 09/16/21 21:18 Dose: 100 mg Documented by: Glucagon (Glucagon 1 Mg/Ml Inj 1 Ml) 1 mg IM ONCE PRN; Protocol PRN Reason: Adult Acute Hypoglycemia Prot. Dextrose (D5w) 500 mls @ 100 mls/hr IV ONCE PRN; Protocol PRN Reason: Adult Acute Hypoglycemia Prot Ceftriaxone Sodium 1,000 mg/ (Sodium Chloride) 50 mls @ 100 mls/hr IV Q24H [facility]; Protocol Last Infusion: 09/16/21 10:07 Dose: Infused Documented by: Sodium Chloride (Sodium Chloride 0.9%) 1,000 mls @ 75 mls/hr IV .[id number] [facility] Last Admin: 09/17/21 07:45 Dose: 75 mls/hr Documented by: Magnesium Sulfate (Magnesium Sulfate Premix) 2 gm in 50 mls @ 50 mls/hr IV ONCE ONE Stop: 09/17/21 09:40 Insulin Glargine (Insulin Glargine 100 Units/1 Ml) 12 unit SUBCUT [facility] Last Admin: 09/17/21 05:58 Dose: Not Given Documented by: Insulin Human Lispro (Insulin Lispro 100 Unit/1 Ml) 0 unit SUBCUT TIDWM [facility]; Protocol Last Admin: 09/17/21 07:45 Dose: Not Given Documented by: Isosorbide Mononitrate (Isosorbide Mononitrate Er 60 Mg Tablet) 60 mg PO [facility] Last Admin: 09/17/21 05:58 Dose: 60 mg Documented by: Isosorbide Mononitrate (Isosorbide Mononitrate Er 30 Mg Tablet) 30 mg PO QPM [facility] Last Admin: 09/16/21 17:34 Dose: 30 mg Documented by: Morphine Sulfate (Morphine 4 Mg/Ml Sdv 1 Ml) 1 mg IVP Q4H PRN PRN Reason: SEVERE PAIN Naloxone HCl (Naloxone 0.4 Mg/Ml Sdv) 0.1 mg IVP Q2M PRN PRN Reason: OPIATERV Nifedipine (Nifedipine Er (24 Hr) 30 Mg Tablet) 30 mg PO [facility] Last Admin: 09/17/21 05:58 Dose: 30 mg Documented by: Nitroglycerin (Nitroglycerin 0.4 Mg Sublingual Tablet) 0.4 mg SUBLINGUAL Q5M PRN PRN Reason: Chest Pain Last Admin: 09/14/21 16:38 Dose: 1 tab Documented by: Nystatin (Nystatin Cream 30 Gm) 1 applic TOPICAL BID [facility] Last Admin: 09/16/21 17:35 Dose: Not Given Documented by: Ondansetron HCl (Ondansetron 2 Mg/Ml Sdv 2 Ml) 4 mg IVP Q8H PRN PRN Reason: vomiting, or N/V if npo Ondansetron HCl (Ondansetron 2 Mg/Ml Sdv 2 Ml) 4 mg IVP Q6H PRN PRN Reason: NAUSEA AND VOMITING Pantoprazole Sodium (Pantoprazole 40 Mg Sdv) 40 mg IVP Q24H [facility] Last Admin: 09/16/21 13:40 Dose: 40 mg Documented by: Sertraline HCl (Sertraline 50 Mg Tablet) 25 mg PO DAILY [facility] Last Admin: 09/16/21 08:26 Dose: 25 mg Documented by: Vitals/I&O/Wt Last Vital Signs Temp 98.1 F 09/17/21 07:02 Pulse 60 09/17/21 07:02 Resp 13 09/17/21 07:02 BP 137/66 09/17/21 07:02 Pulse Ox 94 09/17/21 07:02 09/16/21 09/17/21 09/17/21 22:59 06:59 14:59 Intake Total 236 / 843.5 1000 / 1843.5 Output Total 600 / 1600 450 / 2050 Balance -364 / -756.5 550 / -206.5 Weight last 48 hrs Weight 98.792 kg Physical Exam Narrative: obese, in bed, NARD vss heent- nc/at, eomi, anicteric neck- no jvp lung- clear heart- reg abd soft, nt, nd, + bs ext- no edema neuro- a,a, o x3 Urinary Catheter Management: José: Cath Placed During This Visit: yes Reason for Continuing Indwelling Catheter: Other Urinary Catheter Date of Insertion: 09/15/21 Urinary Catheter Time of Insertion: 16:57 Data : 09/17/21 04:30 09/17/21 04:30 A&P Assessment and plan (1) Chronic kidney disease: 70 yr old female obesity, htn, hyperlipidemia, CAD, diastolic dysfunction PPM- a flutter. ?perfusion scan on September 04 revealed a large moderately severe area of attenuation distribution the right coronary artery and circumflex and currently a coronary angiogram is recommended. 1. CKD stage 3 a- from obesity, dm, htn ua w/ 1+ proteinuria - e coli UTI 1b. FARRUKH on admission can be CRS. -check renal us -monitor renal fxn -is improving -renal opimized for cardiac cath- cont sathya-cath ivf 2. CAD- abnormal stress test, known CAD- multiple cardiac risk fasctors. agree w/ cardiac cath -monitor renal fxn -if possible give 1/2 ns for 6 hrs pre and post cath -minimize dye load. 3. anemia - iron sat 35%, ferritin 510s. neg SPEP in 2019 4. DM control 5. mild met acidosis - from NS and FARRUKH seen and examined w/ RN -telehealth visit time spent 25 min Status: Acute Plan as above Attestations Medical Necessity Statement*: cp, needs cardiac cath Time Spent in Patient Care: 16 - 35 minutes (>than 50% of time spent in counselling and/or direct pt care on unit) . Coding Level of Care Code Acute Retirement Actuary for Kendall Fwd Diagnoses Chronic kidney disease N18.9
--- NOTE | 2021-09-17 09:54 | PM.PN ---
Subjective Subjective: She is well known to me outpatient. She was discharged beginning of August after increasing dose of imdur for atypical chest pain with some reproducible component. She underent stress test at that time. She was readmitted with chest pains Medications: Reviewed: Yes Vitals/I&O/Wt Last Vital Signs Temp 98.1 F 09/17/21 07:02 Pulse 60 09/17/21 07:02 Resp 13 09/17/21 07:02 BP 137/66 09/17/21 07:02 Pulse Ox 94 09/17/21 07:02 09/16/21 09/17/21 09/17/21 22:59 06:59 14:59 Intake Total 236 / 843.5 1000 / 1843.5 Output Total 600 / 1600 450 / 2050 Balance -364 / -756.5 550 / -206.5 Weight last 48 hrs Weight 217 lb 12.8 oz Physical Exam Narrative: GENERAL: In general she seems comfortable at present HEENT: Exam within normal limits. NECK: Supple without jugular vein distention. The carotid upstroke is normal without bruits. BACK: Exam normal. LUNGS: Clear. no wheezes or rales. HEART: Regular rate and rhythm. some reproducible chest pain+ ABDOMEN: Benign without organomegaly or tenderness. EXTREMITIES: No edema or cyanosis NEUROLOGIC: Exam normal. SKIN: Unremarkable Urinary Catheter Management: José: Cath Placed During This Visit: yes Reason for Continuing Indwelling Catheter: Other Urinary Catheter Date of Insertion: 09/15/21 Urinary Catheter Time of Insertion: 16:57 Data : 09/17/21 04:30 09/17/21 04:30 A&P Assessment and plan (1) Chest pain: ?Last stress test with Large sized perfusion abnormality of moderate severity of entire inferior, ?basal to mid inferolateral and apical lateral watters with moderate reversibility in mid to apical inferolateral and apical inferior watters. -continues to be symptomatic inspite of medical management. -I discussed with her option of adding Ranexa and f/u in 1 week with me to reassess her symptoms vs [facility] with high risk of renal failure. -She opted for [facility]. -I discussed her case with Dr. Perdomo and plan to proceed with [facility] this afternoon. Status: Acute (2) Atherosclerotic heart disease of [place] coronary artery with other forms of angina pectoris: Status: Acute (3) Status post placement of cardiac pacemaker: Status: Acute (4) HTN (hypertension): Status: Acute (5) Hyperlipidemia: Status: Acute Plan Abnormal stress test CKD stage 3a H/O LARRY IDDM Anemia Attestations Medical Necessity Statement*: Needs hospital stay for [facility] today Coding Level of Care Code Acute Warranty Clerk for Yaneg Fwd Diagnoses Chest pain R07.9 Atherosclerotic heart disease of [place] coronary artery with other forms of angina pectoris I25.118 Status post placement of cardiac pacemaker Z95.0 HTN (hypertension) I10 Hyperlipidemia E78.5
[2021-09-17] MEDS: ascorbic acid 500 mg Tablet 1000 MG PO (10:11)
[2021-09-17] MEDS: aspirin 81 mg EC Tablet PO (10:12)
[2021-09-17] MEDS: carvedilol 3.125 mg Tablet PO (10:12)
[2021-09-17] MEDS: magnesium sulfate premix 2 GM/50 ML PIGGYBACK IV (10:12)
[2021-09-17] MEDS: nystatin cream 30 gm 1 APPLIC TOPICAL (10:12)
[2021-09-17] MEDS: sertraline 50 mg Tablet 25 MG PO (10:12)
[2021-09-17] MEDS: cefTRIAXone 1,000 MG in sodium chloride 0.9% (plus) 50 ML 100 MG IV (11:15)
[2021-09-17] MEDS: enoxaparin 100 mg/mL Syringe 90 MG SUBCUT (11:47)
--- NOTE | 2021-09-17 12:01 | XACV_ITS ---
Exam Room: [facility] Ht: 150 cm Wt: 98 kg BSA: 2.09 m2 Gender: Female : 1950 Any Known Allergies: Other Exam Priority: Routine Procedure(s): Procedure Description: Diagnostic procedure Procedure Description: Coronary Angiography Diagnostic Cath Status: Elective Diagnostic Findings * Patient has known coronary disease and a pacemaker. Previous intervention to the diagonal and right coronary arteries. History of contrast-induced nephropathy. Presents with chest discomfort. Patient is morbidly obese. Previous attempts to use the radial artery failed. * I used 6 Kosovan 3.5 Genaro, 4 Genaro and 5 Genaro diagnostic catheters as well as a 3.5 Genaro guide which was used during a previous intervention, as well as a 6 Kosovan EBU guide as well as a multipurpose catheter. None of those catheters would engage the left main coronary artery. There appears to be a large plaque just to the outside of the left main coronary artery in the aortic cusp which is preventing engagement of the left main. Nonselective injections were made which shows the left main, LAD and circumflex to have mild to moderate diffuse disease. The pictures are not good enough to determine significant lesions. The right coronary artery is occluded in the midportion. There is collateral flow to the right coronary artery from the left. No left ventriculogram was done due to the patient's history of contrast-induced nephropathy. Conclusions 1. Inability to intubate the left main. Occluded right coronary artery with collaterals from the left system. Recommendations * Medical treatment. Add Ranexa. Diagnostic RX Recommendation: medical therapy and/or counseling Pressures Phase:Rest AO : / ( -1 ) @ 5:38:00 PM 100 / 76 ( 84 ) @ 5:46:00 PM 152 / 88 ( 108 ) @ 6:06:00 PM 143 / 68 ( 98 ) @ 6:16:00 PM Clinical Evaluation EBL: 5mL-10mL Procedural Details Procedure Consent Obtained. Current Diagnosis : NSTEMI. Pre-Procedure Time Out. Identified patient by full name and date of as verbalized by the patient/guarantor. Does the consent match the physician's order: Yes. Accurate & Complete Informed Consent: Yes. Inpatient/Outpatient History & Physical on Chart: Yes. If H&P is completed, is and addenduem needed: No; If yes, is the addendum complete: N/A. Relevant Radiology Images available: Yes. The risks, benefits, and alternatives of sedation and/or procedure were discussed by physician. The patient agrees to continue. Procedure started. [facility] Clinical Fraility Score: 4: Vulnerable. [employer] Supervisor Indications: ACS > 24 hours. Chest Pain Symptom Assessment: Typical Angina Symptoms. Cardiovascular Instability: No. Correct patient, site and procedure confirmed by cath team. Current diagnosis: NSTEMI. PERRLA. Strong, equal hand exchange mechanic bilaterally. Lungs clear x 5 lobes. IV Site on Arrival: 20 gauge in the right anticubital. IV Fluids: 0.9% NaCl at KVO. 600 mL infused prior to organic lab worker. Pre Procedural Pulses: bilateral dorsalis pedis was Doppled. Pre Procedural Pulses: bilateral posterior tibial was Doppled. Pre Procedural Pulses: bilateral radial was 1+. Oxygen started at 2liters/min via nasal canula. bilateral groins was prepped with chloroprep then draped in the usual sterile fashion. Physician notified. Baseline sample Acquired. HR: 60 BPM. Patient's family unavailable. Patient voices for Dr. Perdomo to update her brother via telephone after the procedure. Equipment: 6F - Femoral. Cardiac Cath Pack. ACIST Manifold Kit Model BT 2000. Heparinized Saline (2 units/mL), 1000 mL bag. Physician arrived. Physician scrubbed in. Immediate Pre-Procedure Time Out. Correct Patient: Yes; Correct Procedure: Yes; Correct Site: Yes; Correct Patient Position: Yes; Correct Supplies: Yes; Dried Flammable Prep: Yes; Blood Products Available: N/A;. Lidocaine 1% infiltrated to the right groin. Arterial access obtained. A 5 belarusian JL4 catheter in over wire. Catheter removed over the standard wire. 6 belarusian XB 3 guide catheter was inserted over the wire. Catheter removed over the standard wire. A 6 belarusian JL5 catheter in over wire. Catheter removed over the standard wire. A 6 belarusian JL3.5 catheter in over wire. Catheter removed over the standard wire. A 6 belarusian AL1 catheter in over wire. Catheter removed over the standard wire. A 6 belarusian MPA1 catheter in over wire. Catheter removed over the standard wire. A 6 belarusian JL3.5 catheter in over wire. Cine taken of left coronary artery. Catheter removed over the standard wire. 6 belarusian JL 3.5 guide catheter was inserted over the wire. Multiple views taken of left coronary artery. Catheter removed over the standard wire. A 6 belarusian JR4 catheter in over wire. Multiple views taken of right coronary artery. Dr. Perdomo discussing findings with Dr. Morelos. Catheter removed over the standard wire. Sheath upsized to a [address] Perdomo scrubbed out. A Suture was successful obtaining hemostatsis at the Right Femoral artery insertion site. Sheath(s) sutured into position with 2-0 silk and sterile 4x4's and Op-site applied over the site. No oozing or signs and symptoms of hematoma noted. Arterial sheath flushed and connected to tranducer and pressure bag with heparinized saline. Post Procedure: Pulses reassessed and unchanged. PERRLA. Strong, equal hand exchange mechanic bilaterally. No VTE prophylaxis required. Medication's Wasted: Lidocaine 1% = 10 mL. Medication's Wasted: Heparin = 3000 Units. Total IV fluids: 71.7 mL. Post-op diagnosis: CAD. Complications: none. Estimated blood loss: 5mL-10mL. Responsiveness - Normal response to verbal stimuli; alert and oriented, PERRLA. Airway - Unaffected, no intervention required; spontaneous ventilation. Circulation: W/N/L, pulses unchanged. Nausea/Vomiting: No. Procedure completed. Patient transferred by bed to 1st floor. Vital chart was stopped. Access Site Site: Right Femoral artery Sheath Size: 6 Fr Hemostasis Method: Suture Hemostasis Success: Successful Procedure Medications Start: 4:41 PM Stop: 4:41 PM Medication: Versed Amount: 1 mg Route: I.V. Start: 4:41 PM Stop: 4:41 PM Medication: Fentanyl Amount: 50 mcg Route: I.V. Start: 4:46 PM Stop: 4:46 PM Medication: Versed Amount: 1 mg Route: I.V. Start: 5:06 PM Stop: 5:06 PM Medication: Versed Amount: 1 mg Route: I.V. Start: 5:06 PM Stop: 5:06 PM Medication: Fentanyl Amount: 25 mcg Route: I.V. I, the attending physician, have reviewed and verified all procedure medications. Yes, all medications given per verbal order History/Risk Factors Hypertension: Yes Dyslipidemia: Yes Peripheral Arterial Disease (PAD): No Myocardial Infarction (VA): Yes Obesity: Yes Renal Disease: Yes Prior Interventions PCI: Yes CABG: No Valve Surgery: No Date of PCI: 09/06/2019 Report Signatures Finalized by Dr. Ludin Perdomo MD on 09/17/2021 05:50 PM
[2021-09-17 12:04] LABS: Glucose Point of Care 111 mg/dL (70-110)
--- NOTE | 2021-09-17 13:06 | P.PN_ITS ---
Subjective Subjective: Patient was seen this morning, she is happy that her creatinine is 1.5, she does not that the manager of it said that she is good for a cardiac cath, n.p.o. over midnight Vitals/I&O/Wt Last Vital Signs Temp 98.1 F 09/17/21 07:02 Pulse 59 L 09/17/21 11:45 Resp 17 09/17/21 11:45 BP 111/64 09/17/21 11:45 Pulse Ox 94 09/17/21 11:45 09/16/21 09/17/21 09/17/21 22:59 06:59 14:59 Intake Total 236 / 843.5 1000 / 1843.5 100 / 100 Output Total 600 / 1600 450 / 2050 800 / 800 Balance -364 / -756.5 550 / -206.5 -700 / -700 Weight last 48 hrs Weight 98.792 kg Physical Exam Const: COMMON NORMALS: no acute distress and patient oriented x3 Resp: COMMON NORMALS: normal respiratory effort, No retractions, No use of accessory muscles and clear to auscultation bilaterally AUSCULTATION: clear to auscultation bilaterally Cardio: COMMON NORMALS: regular rate, regular rhythm, S1 normal heart sound present and S2 normal heart sound present RATE: regular rate RHYTHM: regular rhythm HEART SOUNDS: S1 normal heart sound present and S2 normal heart sound present GI: COMMON NORMALS: Normal to inspection, nondistended, normoactive bowel sounds present, Soft to palpation and non-tender PALPATION: Yes Soft to palpation Extremity: COMMON NORMALS: no pedal edema Neuro: COMMON NORMALS: patient oriented x3 Psych: COMMON NORMALS: mental status grossly normal Urinary Catheter Management: José: Cath Placed During This Visit: yes Reason for Continuing Indwelling Catheter: Other Urinary Catheter Date of Insertion: 09/15/21 Urinary Catheter Time of Insertion: 16:57 Data : 09/17/21 04:30 09/17/21 04:30 A&P Assessment and plan (1) Chest pain: Status: Acute (2) NSTEMI (non-ST elevated myocardial infarction): Status: Acute (3) Aortic stenosis: Status: Acute Qualifiers: Cardiac valve disease etiology: nonrheumatic Qualified Code(s): I35.0 - Nonrheumatic aortic (valve) stenosis (4) Atrial flutter: Status: Acute (5) Grade II diastolic dysfunction: Status: Acute Plan Chest pain -Serial EKGs, serial troponins, telemetry monitoring -Has received aspirin, metoprolol -Continue home Plavix, therapeutic Lovenox -CAD aspirin, Coreg, statin -Continue home Imdur -Recent history of positive stress test 1. Large sized perfusion abnormality of moderate severity of entire inferior, ?basal to mid inferolateral and apical lateral watters with moderate reversibility ?in mid to apical inferolateral and apical inferior watters on supine stress ?images. ?2. This may represent old myocardial infarction with moderate sathya-infarct ?ischemia in RCA/circumflex artery territory. ?3.? In absence of prone imaging and with no regional wall motion abnormality ?diaphragmatic attenuation artifact cannot be completely ruled out. ?4.? Transient ischemic dilation index mildly increased at 1.2.? This may ?represent hypertensive response/subendocardial ischemia. ?5. EKG portion of the study will be reported separately. -Cardiac echocardiogram Normal left ventricular size and systolic function, EF 59 %.? ?Wall motion abnormalities as mentioned above.Mildly increased ?left atrial size. ?Thickened mitral valve. Moderate mitral annular calcification. ?Trace mitral valve regurgitation. ?Thickened aortic valve. Trace aortic valve regurgitation. Aortic ?valve sclerosis. ?Mild tricuspid valve regurgitation. ?Trace pulmonary valve regurgitation. ?There is no pericardial effusion. ?There are no intracardiac masses. ?Technically difficult study because of the poor ultrasonic ?window. -Cardiology consulted for consideration of cardiac cath, creatinine 1.5, gentle IV hydration -Full code -Therapeutic Lovenox for DVT prophylaxis FARRUKH on CKD, creatinine up to 1.5, continue gentle IV hydration, has a history of contrast-induced nephropathy which she had a coronary angiogram, -On IV fluids -nephrology on consult Right upper quadrant abdominal pain, right upper quadrant ultrasound shows cholelithiasis, no evidence of cholecystitis, continue to monitor Type 2 diabetes mellitus, low-dose sliding scale, continue glargine Diastolic CHF, hold Bumex Chronic pain, continue home fentanyl Attestations Medical Necessity Statement*: Patient requires hospitalization for chest pain, proceeding with coronary angiography Coding Level of Care Code Acute Ibm Mainframe Systems Programmer for [facility] Fwd Diagnoses Chest pain R07.9 NSTEMI (non-ST elevated myocardial infarction) I21.4 Aortic stenosis I35.0 Cardiac valve disease etiology: nonrheumatic Atrial flutter I48.92 Grade II diastolic dysfunction I51.9
--- NOTE | 2021-09-17 14:44 | PC.SOCIAL ---
IMM Update pg 2 of IMM updated and reviewed w/ patient. Copy provided and copy placed in chart.
[2021-09-17] MEDS: diphenhydrAMINE 50 mg Capsule PO (16:02)
[2021-09-17] MEDS: pantoprazole DR 40 mg Tablet PO (16:02)
[2021-09-17] MEDS: ondansetron 2 mg/ML SDV 2 mL 4 MG IVP ×2 (19:55→21:27)
[2021-09-17 19:57] LABS: Hematocrit 29.3 % (37.0-47.0); Hemoglobin 9.6 g/dL (11.5-15.3)
[2021-09-17 19:57] LABS: Partial Thromboplastin Time 36.5 SECONDS (23.9-36.7)
--- NOTE | 2021-09-17 19:59 | PM.MISC ---
Miscellaneous Note Note: This patient underwent coronary angiography via the right groin and around 430 this afternoon. About 7:45 PM, some 15 minutes ago I was called by the nurse who said that the patient had developed a large hematoma after the sheath was pulled. Patient became somewhat somnolent and dropped her blood pressure. A rapid response was called. The patient has been placed in the supine position. A FemoStop has been placed. The hematoma has been outlined. Her blood pressure is now 123/75. She is pale but awake and alert. We will provide her with some fluids, check a CBC in a short while and then again in the morning. We will type and screen 2 units of red cells. She will be moved to the ICU.
[2021-09-17 20:00] LABS: Glucose Point of Care 111 mg/dL (70-110)
[2021-09-17 20:02] LABS: Glucose Point of Care 145 mg/dL (70-110)
--- NOTE | 2021-09-17 20:05 | PC.NURSE ---
Patient Arrive to ICU Patient arrived in ICU, bedside report received from PROSPER Camargo. Patient noted to be pale, fem stop in place above sheath insertion site-fem stop pressure at 200 mmhg. Right groin hematoma is outlined, visibly bruised and hard. Right pedal pulse palpable.
--- NOTE | 2021-09-17 20:26 | PC.NURSE ---
1840 sheath pull started patient tolerating well no adverse events noted until 3 min to end of 20min manual pressure a small hard approx. the size of an egg pressure held on possible hematoma formation Dr Perdomo notified at bedside with instructions to hold pressure longer 15 min more manual pressure held hematoma soften and patient vital signs stable patient alert and oriented. left bedside after bedside report given to Young Rn both nurse assessed site no immediate adverse events patient asked to sit up in bed a little bit to be able to have something to eat patient assisted to up right at 25-30 degrees as per protocol 1930 patient called to nurses station with pain at site Large hematoma noted to patient then flopped back against pillow and would not respond started to heave a rapid response was called rapid response team at bedside Dr Gama sims And Dr Perdomo All responded to bedside please see rapid response flow sheet for after care patient transferred to ICU report given to ROLL SHEETING CUTTER Attempted to contact Brother with NO answer after 4 attempts Notified ICU of inability to contact
--- NOTE | 2021-09-17 20:33 | PM.MISC ---
Miscellaneous Note Note: A Rapid Response was called at 7:34 PM After removal of right sided femoral sheath patient developed large hematoma at the site. She became very lethargic and drowsy, no loss of pulse, cpr did not initiated. When I arrived I asked her nurse to keep her in Trendelenburg position, start 1 L normal saline bolus, her blood pressure dropped from systolic 123mmhg down to 84 mmHg, after about 2 minutes her systolic blood pressure started improving, she did not complain of any chest pain, shortness of breath Blood sugar was checked which was 145 mg/dL, patient was awake and alert, she was able to tell me her name, she experienced 1 episode of emesis FemoStop was applied, manual compression and sandbag at the site of femoral sheath applied, site of hematoma demarcated, she has good pulses dorsalis pedis and posterior tibial, there is no skin mottling I asked nurses to transfer her to ICU requested 2 unit PRBC, in AM H&H 9.6, will request another H&H at 11 PM, still waiting for H&H from Hold antiplatelet therapy, antihypertensive for now reassess for initiation of DAPT in the morning Discontinue anticoagulating agent Dr. Perdomo was notified who evaluated the patient at bedside around 745PM
[2021-09-17] MEDS: morphine 4 mg/mL SDV 1 mL 2 MG IVP ×3 (21:28→23:38)
[2021-09-17 21:37] LABS: Hematocrit 27.9 % (37.0-47.0)
[2021-09-17] MEDS: sodium chloride 0.9% (100 ml) 100 ML (22:08)
--- NOTE | 2021-09-17 22:10 | PC.NURSE ---
Blood Transfusion Spoke with Dr. Malloy, he gave telephone orders to redraw labs and begin transfusing 1 unit blood. Started blood transfusion-patient VSS.
[2021-09-17] MEDS: ranolazine (12HR) 500 mg Tablet PO (23:02)
[2021-09-17] MEDS: atorvastatin 40 mg Tablet PO (23:02)
[2021-09-18] VITALS (15 sets, daily range): BP systolic 92–117; BP diastolic 34–58; PULSE 60–71; RESP 8–17; TEMP 36–36.6; O2SAT 88–100; BMI 48.6
[2021-09-18] MEDS: morphine 4 mg/mL SDV 1 mL 2 MG IVP ×2 (01:27→03:30)
--- NOTE | 2021-09-18 03:04 | PC.NURSE ---
Readjust Femostop Patient is alert/oriented x4. Noted to be pulling at Femostop because it hurts . Readjusted Femostop due to inaccurate placement from patient movement. This nurse and multiple other staff members explained purpose/need for Femostop and need to lay flat after stent placement. Patient verbalizes understanding of teaching, will continue to monitor.
[2021-09-18 04:00] LABS: Basophils # 0.1 10^3/uL (0.0-0.1); Basophils % 0.6 %; Eosinophils # 0.1 10^3/uL (0.0-0.8); Eosinophils % 0.8 %; Hemoglobin 9.5 g/dL (11.5-15.3); Lymphocytes # 1.2 10^3/uL (0.8-4.8); Lymphocytes % 11.5 %; Mean Corpuscular HGB Conc 31.7 g/dL (30.0-36.0); Mean Corpuscular Hemoglobin 30.2 pg (28.0-34.0); Mean Corpuscular Volume 95.2 fl (81-99); Mean Platelet Volume 10.9 fL (7.4-10.4); Monocytes # 0.9 10^3/uL (0.2-0.9); Monocytes % 8.4 %; Neutrophils # 8.25 10^3/uL (1.8-7.7); Neutrophils % 77.6 %; Nucleated Red Blood Cells % 0 %; Platelet Count 173 10^3/cmm (130-400); Red Blood Count 3.15 10^6/uL (4.1-5.3); Red Cell Distribution Width 17.1 % (12.1-15.1); White Blood Count 10.6 10^3/uL (4.0-10.0)
[2021-09-18 04:15] LABS: Alanine Aminotransferase 31 U/L (0-33); Albumin Level 2.7 g/dL (3.5-5.2); Alkaline Phosphatase 85 IU/L (35-105); Anion Gap 14.6 (5-19); Aspartate Amino Transferase 35 U/L (0-32); Blood Urea Nitrogen 32 mg/dL (8-23); Calcium 7.8 mg/dL (8.5-10.5); Carbon Dioxide 20 mmol/L (22-29); Chloride 111 mmol/L (98-107); Globulin 2.2 g/dL (1.3-4.6); Glucose 187 mg/dL (65-115); Magnesium 1.8 mg/dL (1.7-2.3); Osmolality Calculated 304 mOsm/kg (285-295); Phosphorus 3.9 mg/dL (2.5-4.5); Potassium 4.6 mmol/L (3.5-5.1); Sodium 141 mmol/L (136-145); Total Bilirubin 0.7 mg/dL (0.15-1.2); Total Protein 4.9 g/dL (6.6-8.7)
[2021-09-18] MEDS: sodium chloride 0.9% 1,000 ML 75 ML IV ×2 (04:56→21:43)
[2021-09-18 05:13] LABS: Glucose Point of Care 162 mg/dL (70-110)
[2021-09-18] MEDS: insulin glargine 100 units/1 mL 12 UNIT SUBCUT (05:19)
--- NOTE | 2021-09-18 05:25 | PC.NURSE ---
Shift Summary Patient had an eventful shift, please see previous notes. Patient is alert/oriented x4. Right groin hematoma still present at this time (outlined with skin marker) appears bruised and is firm upon palpation. Please see post cardiac flowsheet for more details. Femostop remains in place at this time per Dr. Perdomo orders. Patient had several reports of pain throughout shift, PRN pain medication administered. José catheter drained 900 mls of urine overnight.
[2021-09-18 07:55] LABS: Glucose Point of Care 171 mg/dL (70-110)
--- NOTE | 2021-09-18 07:58 | P.PN_ITS ---
Subjective Subjective: Ms. Montalvo was moved to the ICU last evening after she had a groin bleed post sheath pull. She had an episode of hypotension. She has had a FemoStop in place overnight. Her hemoglobin was 9 last evening and its 9.5 this morning. She has not received any packed red blood cells. She is in surpr isingly good humor this morning. She has some tenderness in the leg. I did order some morphine for her last evening. Her creatinine is 1.6. Vitals/I&O/Wt Last Vital Signs Temp 96.8 F L 09/18/21 07:06 Pulse 65 09/18/21 07:06 Resp 11 L 09/18/21 07:06 BP 92/50 09/18/21 07:06 Pulse Ox 88 L 09/18/21 07:06 09/17/21 09/18/21 09/18/21 22:59 06:59 14:59 Intake Total 240 / 340 1690 / 2030 Output Total 900 / 1700 Balance 240 / -460 790 / 330 Weight last 48 hrs Weight 241 lb 2 oz Weight 217 lb 12.8 oz Physical Exam Narrative: GENERAL: In general she is lying flat in bed, pale but in no acute distress HEENT: Exam within normal limits. NECK: Supple without jugular vein distention. The carotid upstroke is normal without bruits. BACK: Exam normal. LUNGS: Clear. HEART: Regular rate and rhythm. ABDOMEN: Benign without organomegaly or tenderness. EXTREMITIES: No edema. The hematoma has not expanded compared to last evening. The outline is the same. I cannot feel a pulse in the groin however I was not forceful in doing so due to the tenderness. She does have a distal pulse. NEUROLOGIC: Exam normal. SKIN: Unremarkable. Urinary Catheter Management: José: Cath Placed During This Visit: yes Reason for Continuing Indwelling Catheter: Accurate Measurement of Urinary Output in Critically Ill Patients Urinary Catheter Date of Insertion: 09/15/21 Urinary Catheter Time of Insertion: 16:57 Data : 09/18/21 03:40 09/18/21 03:40 A&P Assessment and plan (1) Morbid obesity: Status: Acute (2) Hyperlipidemia: Status: Acute (3) HTN (hypertension): Status: Acute (4) Status post placement of cardiac pacemaker: Status: Acute (5) Chronic kidney disease: Status: Acute (6) Atherosclerotic heart disease of [place] coronary artery with other forms of angina pectoris: Status: Acute (7) NSTEMI (non-ST elevated myocardial infarction): Status: Acute (8) Normocytic anemia: Status: Acute (9) Acute renal failure: Status: Acute (10) Heart failure with preserved ejection fraction: Status: Acute (11) Hematoma following procedure: Status: Acute Plan We will take the FemoStop off today. We will get her up to the side of the bed. She may eat. Follow hemoglobins. Treat coronary disease medically. Attestations Medical Necessity Statement*: Needs hospitalization for management of coronary disease, potential for acute renal failure and groin hematoma. 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
[2021-09-18] MEDS: insulin lispro 100 unit/1 mL SUBCUT ×3 (08:17→17:41)
[2021-09-18] MEDS: ascorbic acid 500 mg Tablet 1000 MG PO ×2 (08:18→17:41)
[2021-09-18] MEDS: sertraline 50 mg Tablet 25 MG PO (08:18)
[2021-09-18] MEDS: ranolazine (12HR) 500 mg Tablet PO ×2 (08:18→17:42)
--- NOTE | 2021-09-18 08:27 | PC.NURSE ---
Dr. Perdomo rounded this morning and gave orders to remove femstop. Removed at 0800
--- NOTE | 2021-09-18 09:34 | PC.NURSE ---
performed bed change
[2021-09-18] MEDS: cefTRIAXone 1,000 MG in sodium chloride 0.9% (plus) 50 ML 100 MG IV (11:06)
[2021-09-18 11:15] LABS: Glucose Point of Care 196 mg/dL (70-110)
--- NOTE | 2021-09-18 11:17 | CT_ITS ---
WS: [id number] CT ABDOMEN PELVIS TECHNIQUE: Noncontrast CT of the abdomen and pelvis with coronal and sagittal reformatted images. CLINICAL INFORMATION: anemia COMPARISON: CT September 14, 2020 DLP: 1733.[address] scans at [facility] use at least one of these dose optimization techniques: automated e xposure control; mA and/or kV adjustment per patient size (includes targeted exams where dose is matc hed to clinical indication); or iterative reconstruction. FINDINGS: Noncontrast liver is normal. Vicarious excretion of contrast into the gallbladder. Cholelithiasis vis ualized on the prior CT. Coronary calcification. Slight bibasilar atelectasis. Splenic artery calcifi cation. Small esophageal hiatal hernia. Air-fluid level in the stomach. Fatty atrophy of the pancreas . Adrenal glands are normal. Normal renal parenchymal enhancement. Bilateral renal cortical atrophy. No hydronephrosis in either kidney. Normal caliber abdominal aorta. Aortic calcification. Sigmoid diverticulosis. José catheter. Bilater al THAs obscure pelvic images. Ectatic anterior abdominal wall. No hernia. Prior hernia repair. Lumbar scoliosis convex LEFT. Multilevel degenerative disc disease lumbar spine. Bony fusion L1-L3. CT/CT abdomen pelvis wo con [id number] IMPRESSION: 1. No acute abdominal or pelvic findings. 2. RIGHT anterior thigh hematoma discussed on the concurrent femur CT. 3. Small esophageal hiatal hernia.
--- NOTE | 2021-09-18 11:17 | CT_ITS ---
WS: [id number] NONCONTRAST CT RIGHT FEMUR TECHNIQUE: Noncontrast CT RIGHT femur with coronal and sagittal reformatted images. CLINICAL INFORMATION: bleeding COMPARISON: None. DLP: 2907.[address] scans at [facility] use at least one of these dose optimization techniques: automated e xposure control; mA and/or kV adjustment per patient size (includes targeted exams where dose is matc hed to clinical indication); or iterative reconstruction. FINDINGS: Large hematoma in the RIGHT anterior thigh soft tissues with diffuse edema in the RIGHT pro ximal thigh. Hematoma measures 5.1 x 6.6 x 10.1 cm AP by transverse by craniocaudal. A few smaller he matomas in the anterior subcutaneous proximal thigh soft tissues. Vascular calcification. José [address] ter. Degenerative arthritis sacroiliac joints. RIGHT FÁTIMA with acetabular screw fixation. Intramedullary saad within the femoral shaft. CT/CT femur RT wo con* [id number] IMPRESSION: 1. Large heterogeneous hematoma in the RIGHT anterior thigh compartment with d iffuse edema in the RIGHT proximal thigh. 2. Hematoma measures 5.1 x 6.6 x 10.1 cm AP by transverse by craniocaudal. 3. A few smaller hematomas in the anterior subcutaneous proximal thigh soft ti ssues.
[2021-09-18] MEDS: pantoprazole DR 40 mg Tablet PO (13:01)
[2021-09-18 13:11] LABS: Basophils # 0.1 10^3/uL (0.0-0.1); Basophils % 0.4 %; Eosinophils % 0.3 %; Hematocrit 29.7 % (37.0-47.0); Hemoglobin 9.8 g/dL (11.5-15.3); Lymphocytes # 1.1 10^3/uL (0.8-4.8); Lymphocytes % 7.6 %; Mean Corpuscular Hemoglobin 30.7 pg (28.0-34.0); Mean Corpuscular Volume 93.1 fl (81-99); Mean Platelet Volume 10.6 fL (7.4-10.4); Monocytes # 1.1 10^3/uL (0.2-0.9); Monocytes % 7.7 %; Neutrophils # 11.75 10^3/uL (1.8-7.7); Neutrophils % 82.3 %; Nucleated Red Blood Cells % 0.1 %; Platelet Count 180 10^3/cmm (130-400); Red Blood Count 3.19 10^6/uL (4.1-5.3); Red Cell Distribution Width 18.2 % (12.1-15.1); White Blood Count 14.3 10^3/uL (4.0-10.0)
--- NOTE | 2021-09-18 13:24 | PM.PN ---
Subjective Subjective: Patient was seen this morning, multiple times, she remains drowsy, alert to person, to place, not to time, yesterday afternoon, when her sheath was pulled, she developed a hematoma, became nonresponsive, concerns for hemorrhagic shock was moved to the ICU, remained hemodynamically stable, hemoglobin stable, right thigh hematoma continues to enlarge, Patient was reexamined after CT, had a couple of hypotensive episodes with minimal movement, alert to person, to place, not to time, a bit drowsy, repeat blood work and a CAT scan has been ordered Vitals/I&O/Wt Last Vital Signs Temp 96.8 F L 09/18/21 07:06 Pulse 60 09/18/21 12:46 Resp 9 L 09/18/21 12:46 BP 101/38 09/18/21 12:46 Pulse Ox 100 09/18/21 12:46 09/17/21 09/18/21 09/18/21 22:59 06:59 14:59 Intake Total 240 / 340 1690 / 2030 290 / 290 Output Total 900 / 1700 Balance 240 / -460 790 / 330 290 / 290 Weight last 48 hrs Weight 109.372 kg Weight 98.792 kg Physical Exam Const: COMMON NORMALS: no acute distress EXAM LIMITATIONS: altered mental status ORIENTATION/CONSCIOUSNESS: Yes awake, Yes oriented to person and Yes oriented to place; not oriented to time Resp: COMMON NORMALS: normal respiratory effort, No retractions, No use of accessory muscles and clear to auscultation bilaterally AUSCULTATION: clear to auscultation bilaterally Cardio: COMMON NORMALS: regular rate, regular rhythm, S1 normal heart sound present and S2 normal heart sound present RATE: regular rate RHYTHM: regular rhythm HEART SOUNDS: S1 normal heart sound present and S2 normal heart sound present GI: COMMON NORMALS: Normal to inspection, nondistended, normoactive bowel sounds present, Soft to palpation, non-tender and No hepatosplenomegaly present PALPATION: Yes Soft to palpation and Yes No hepatosplenomegaly present Extremity: COMMON NORMALS: no pedal edema Neuro: SENSORIUM/ORIENTATION: Yes oriented to person, Yes oriented to place and No oriented to time Urinary Catheter Management: José: Cath Placed During This Visit: yes Reason for Continuing Indwelling Catheter: Accurate Measurement of Urinary Output in Critically Ill Patients Urinary Catheter Date of Insertion: 09/15/21 Urinary Catheter Time of Insertion: 16:57 Data : 09/18/21 12:55 09/18/21 03:40 A&P Assessment and plan (1) Chest pain: Status: Acute (2) NSTEMI (non-ST elevated myocardial infarction): Status: Acute (3) Aortic stenosis: Status: Acute Qualifiers: Cardiac valve disease etiology: nonrheumatic Qualified Code(s): I35.0 - Nonrheumatic aortic (valve) stenosis (4) Atrial flutter: Status: Acute (5) Grade II diastolic dysfunction: Status: Acute (6) Hematoma of right thigh: Status: Acute (7) Acute encephalopathy: Status: Acute Plan Right thigh hematoma 1.? Large heterogeneous hematoma in the RIGHT anterior thigh compartment with diffuse edema in the RIGHT proximal thigh. 2.? Hematoma measures 5.1 x 6.6 x 10.1 cm AP by transverse by craniocaudal. 3.? A few smaller hematomas in the anterior subcutaneous proximal thigh soft tissues.? -Currently hemodynamically stable -But is orthostatic positive -Hemoglobin stable at 9.8, continue to monitor -Transfuse if hemoglobin less than 8 -Anticoagulation, aspirin, statin, Plavix, blood pressure medications currently on hold -Bedrest Chest pain -Serial EKGs, serial troponins, telemetry monitoring -Recent history of positive stress test 1. Large sized perfusion abnormality of moderate severity of entire inferior, ?basal to mid inferolateral and apical lateral watters with moderate reversibility ?in mid to apical inferolateral and apical inferior watters on supine stress ?images. ?2. This may represent old myocardial infarction with moderate sathya-infarct ?ischemia in RCA/circumflex artery territory. ?3.? In absence of prone imaging and with no regional wall motion abnormality ?diaphragmatic attenuation artifact cannot be completely ruled out. ?4.? Transient ischemic dilation index mildly increased at 1.2.? This may ?represent hypertensive response/subendocardial ischemia. ?5. EKG portion of the study will be reported separately. -Cardiac echocardiogram Normal left ventricular size and systolic function, EF 59 %.? ?Wall motion abnormalities as mentioned above.Mildly increased ?left atrial size. ?Thickened mitral valve. Moderate mitral annular calcification. ?Trace mitral valve regurgitation. ?Thickened aortic valve. Trace aortic valve regurgitation. Aortic ?valve sclerosis. ?Mild tricuspid valve regurgitation. ?Trace pulmonary valve regurgitation. ?There is no pericardial effusion. ?There are no intracardiac masses. ?Technically difficult study because of the poor ultrasonic ?window. -Cardiology consulted for consideration of cardiac cath, status post cardiac cath, medical management -Aspirin, statin, Plavix, Imdur currently on hold -Full code -Therapeutic Lovenox for DVT prophylaxis currently on hold FARRUKH on CKD, creatinine up to 1.6, continue gentle IV hydration, has a history of contrast-induced nephropathy which she had a coronary angiogram, status post angiogram recheck creatinine, decreasing urine output -On IV fluids -nephrology on consult Right upper quadrant abdominal pain, right upper quadrant ultrasound shows cholelithiasis, no evidence of cholecystitis, continue to monitor Type 2 diabetes mellitus, low-dose sliding scale, continue glargine Diastolic CHF, hold Bumex Chronic pain, continue home fentanyl acute encephalopathy, likely sec to blood loss, orthostatic positive, continue to monitor Attestations Medical Necessity Statement*: Patient requires hospitalization for right thigh hematoma, acute encephalopathy Coding Level of Care Code 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
[2021-09-18 13:31] LABS: INR 0.99 (0.8-1.2); Partial Thromboplastin Time 24.4 SECONDS (23.9-36.7)
[2021-09-18 13:40] LABS: Procalcitonin 0.47 ng/mL (0-0.5)
[2021-09-18 13:51] LABS: Alanine Aminotransferase 47 U/L (0-33); Albumin Level 3.2 g/dL (3.5-5.2); Alkaline Phosphatase 93 IU/L (35-105); Aspartate Amino Transferase 44 U/L (0-32); Blood Urea Nitrogen 36 mg/dL (8-23); C Reactive Protein 16.5 mg/L (0.0-4.9); Calcium 8.2 mg/dL (8.5-10.5); Carbon Dioxide 17 mmol/L (22-29); Chloride 106 mmol/L (98-107); Globulin 2.5 g/dL (1.3-4.6); Glucose 191 mg/dL (65-115); Osmolality Calculated 297 mOsm/kg (285-295); Sodium 137 mmol/L (136-145); Total Bilirubin 0.5 mg/dL (0.15-1.2); Total Protein 5.7 g/dL (6.6-8.7)
[2021-09-18 13:58] LABS: Anion Gap 19.5 (5-19); Potassium 5.5 mmol/L (3.5-5.1)
[2021-09-18 17:41] LABS: Glucose Point of Care 179 mg/dL (70-110)
--- NOTE | 2021-09-18 18:02 | PC.NURSE ---
Patient very lethargic this shift. Slept all day, CT normal, Doctor Haider aware, V/S all WNL. Transfer orders to [facility], awaiting bed
[2021-09-18] MEDS: ondansetron 2 mg/ML SDV 2 mL 4 MG IVP (19:06)
[2021-09-18 20:10] LABS: Hematocrit 27.2 % (37.0-47.0); Hemoglobin 8.4 g/dL (11.5-15.3)
[2021-09-18] MEDS: atorvastatin 40 mg Tablet PO (21:43)
[2021-09-18 22:06] LABS: Glucose Point of Care 193 mg/dL (70-110)
[2021-09-19] VITALS (77 sets, daily range): BP systolic 0–122; BP diastolic 0–77; PULSE 0–92; RESP 0–35; TEMP -17.7–35; O2SAT 0–100; BMI 46.6
[2021-09-19 03:02] LABS: Basophils # 0.1 10^3/uL (0.0-0.1); Basophils % 0.3 %; Hematocrit 23.7 % (37.0-47.0); Hemoglobin 7.4 g/dL (11.5-15.3); Lymphocytes # 1.2 10^3/uL (0.8-4.8); Lymphocytes % 5.8 %; Mean Corpuscular HGB Conc 31.2 g/dL (30.0-36.0); Mean Corpuscular Volume 99.2 fl (81-99); Mean Platelet Volume 12.1 fL (7.4-10.4); Monocytes # 1.4 10^3/uL (0.2-0.9); Monocytes % 6.8 %; Neutrophils % 85.9 %; Nucleated Red Blood Cells # 0.1 /100WBC; Nucleated Red Blood Cells % 0.3 %; Platelet Count 166 10^3/cmm (130-400); Red Blood Count 2.39 10^6/uL (4.1-5.3); Red Cell Distribution Width 18.5 % (12.1-15.1)
[2021-09-19 03:17] LABS: INR 1.24 (0.8-1.2)
[2021-09-19 03:29] LABS: Alanine Aminotransferase 83 U/L (0-33); Albumin Level 2.9 g/dL (3.5-5.2); Alkaline Phosphatase 102 IU/L (35-105); Aspartate Amino Transferase 64 U/L (0-32); Blood Urea Nitrogen 45 mg/dL (8-23); Carbon Dioxide 13 mmol/L (22-29); Chloride 108 mmol/L (98-107); Creatinine Clr Calc Pharmacy 30.7216; Globulin 2.6 g/dL (1.3-4.6); Glucose 221 mg/dL (65-115); Iron 85 ug/dL (37-145); Magnesium 1.9 mg/dL (1.7-2.3); Osmolality Calculated 302 mOsm/kg (285-295); Sodium 137 mmol/L (136-145); Total Bilirubin 0.5 mg/dL (0.15-1.2); Total Protein 5.5 g/dL (6.6-8.7)
[2021-09-19 03:43] LABS: Ferritin 2242 ng/mL (15-150)
--- NOTE | 2021-09-19 05:10 | ECG_ITS ---
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 Measurements Intervals Leon Rate: 87 P: FL: QRS: 71 QRSD: 145 T: -53 QT: 369 QTc: 444 Interpretive Statements SINUS RHYTHM WITH FIRST DEGREE AV BLOCK INTRAVENTRICULAR CONDUCTION DELAY [130+ ms QRS DURATION] Compared to ECG 09/13/2021 17:42:41 Intraventricular conduction delay now present Atrial-paced complex(es) or rhythm no longer present Ventricular-paced complex(es) or rhythm no longer present Right bundle-branch block no longer present Electronically Signed On 09-20-2021 7:13:26 CDT by Patricia Morelos M.D. [email or web address] Surgical[facility] biloxiActinium Pharmaceuticalsst. franc[facility].[email or web address]/store/Ov/[id number]
--- NOTE | 2021-09-19 05:10 | XRR_ITS ---
PROCEDURE INFORMATION: Exam: XR Chest Exam date and time: 09/19/2021 5:18 AM Age: 70 years old Clinical indication: Prior surgery; Surgery date: Post-operative (0-2 days); Surgery type: Coronary angiogram on 09/17/2021. Pacemaker. ; Patient HX: Sudden onset of becoming unresponsive. TECHNIQUE: Imaging protocol: XR of the chest. Views: 1 view. Total images: 1 COMPARISON: CR XR chest 1V portable [id number] 08/21/2021 1:40 PM FINDINGS: Tubes, catheters and devices: A pacemaker device is present, its leads in appropriate position. Lungs: Unremarkable. No consolidation. Pleural spaces: Unremarkable. No pleural effusion. No pneumothorax. Heart/Mediastinum: Unremarkable. No cardiomegaly. Bones/joints: Osseous structures are unchanged from the prior exam. XR/XR chest 1V portable [id number] IMPRESSION: No acute cardiopulmonary process.
--- NOTE | 2021-09-19 05:12 | CTR_ITS ---
PROCEDURE INFORMATION: Exam: CT Head Without Contrast Exam date and time: 09/19/2021 5:35 AM Age: 70 years old Clinical indication: Altered mental status/memory loss; Patient HX: Sudden onset of being unresponsive. Patient had coronary angiogram on 09/17/2021 and was moved to icu due to post op bleed from femoral sheath. TECHNIQUE: Imaging protocol: Computed tomography of the head without contrast. Total images: 204 Radiation optimization: All CT scans at this facility use at least one of these dose optimization techniques: automated exposure control; mA and/or kV adjustment per patient size (includes targeted exams where dose is matched to clinical indication); or iterative reconstruction. COMPARISON: CT head wo con* [id number] 09/13/2021 9:24 AM RADIATION DOSE METRICS: Total DLP (mGy-cm): 874.43 FINDINGS: Brain: Global brain atrophy and chronic white matter ischemic changes are present. Remote lacunar infarct of the right thalamus noted. Chronic lacunar infarction in the right basal ganglia. Cerebral ventricles: Ventricles are appropriate in size for degree of atrophy. Paranasal sinuses: Visualized sinuses are unremarkable. No fluid levels. Mastoid air cells: Visualized mastoid air cells are well aerated. Orbital cavities: Dysconjugate gaze. Bones/joints: Unremarkable. No acute fracture. Soft tissues: Unremarkable. CT/CT head wo con* [id number] IMPRESSION: No acute intracranial abnormality.
[2021-09-19 05:20] LABS: ABG PCO2 23.7 mmHg (35-45); Arterial Blood Gas Hematocrit 21.4 % (37-47); Base Excess ABG -18.3 mmol/L (-2.0-2.0); Blood Gas Operator Identificat JB; Blood Gas Sample Site Brachial, right; Blood Gas Sample Type Arterial; Carboxyhemoglobin 0.7 %THgb (0.4-20.1); HCO3 ABG 8.6 mmol/L (22-26); HGB O2 Sat 98.7 % (95-100); Ionized Calcium Level - ABG 1.1 mmol/L (1.1-1.4); Oxygen Device NRB; Oxygen Saturation ABG > 100.0; Potassium Level - ABG 6.2 mmol/L (3.5-5.0)
[2021-09-19 05:21] LABS: ABG PH Result 7.17 (7.35-7.45)
[2021-09-19] MEDS: sodium bicarbonate 150 MEQ in dextrose 5% 1,000 ML 100 MEQ IV (05:56)
[2021-09-19] MEDS: sodium chloride 0.9% (100 ml) 100 ML 50 ML (06:00)
[2021-09-19] MEDS: insulin regular-human 250 UNIT in sodium chloride 0.9% 250 ML IV (06:08)
--- NOTE | 2021-09-19 06:12 | PC.NURSE ---
#20 IVL started in the right forearm.
--- NOTE | 2021-09-19 06:44 | PM.PN ---
Subjective Subjective: not responsive. events of last 48 hrs noted Medications: Reviewed: Yes Medication Review Details: Current Medications Acetaminophen (Acetaminophen 325 Mg Tablet) 650 mg PO Q6H PRN PRN Reason: Mild/Mod Pain Or Temp >/= 101 Ascorbic Acid (Ascorbic Acid 500 Mg Tablet) 1,000 mg PO BID [facility] Last Admin: 09/18/21 17:41 Dose: 1,000 mg Documented by: Aspirin (Aspirin 81 Mg Ec Tablet) 81 mg PO DAILY [facility] Last Admin: 09/17/21 10:12 Dose: 81 mg Documented by: Atorvastatin Calcium (Atorvastatin 40 Mg Tablet) 40 mg PO BEDTIME [facility] Last Admin: 09/18/21 21:43 Dose: 40 mg Documented by: Carvedilol (Carvedilol 3.125 Mg Tablet) 3.125 mg PO BID [facility] Last Admin: 09/17/21 10:12 Dose: 3.125 mg Documented by: Clopidogrel Bisulfate (Clopidogrel 75 Mg Tablet) 75 mg PO DAILY@08 [facility] Last Admin: 09/17/21 07:45 Dose: 75 mg Documented by: Dextrose (Dextrose 50% Syringe 50 Ml) 25 ml IVP ONCE PRN; Protocol PRN Reason: hypoglycemia protocol Dextrose (Dextrose 50% Syringe 50 Ml) 50 ml IVP PRN PRN; Protocol PRN Reason: hypoglycemia protocol Dextrose (Dextrose 50% Syringe 50 Ml) 25 ml IVP ONCE PRN; Protocol PRN Reason: hypoglycemia protocol Dextrose (Dextrose 50% Syringe 50 Ml) 50 ml IVP PRN PRN; Protocol PRN Reason: hypoglycemia protocol Enoxaparin Sodium (Enoxaparin 100 Mg/Ml Syringe) 90 mg 1 mg/kg (90 mg) SUBCUT Q12H [facility] Last Admin: 09/17/21 11:47 Dose: 90 mg Documented by: Fentanyl (Fentanyl 25 Mcg Patch) 1 patch TRANSDERMA Q72H [facility] Last Admin: 09/16/21 21:18 Dose: 1 patch Documented by: Gabapentin (Gabapentin 100 Mg Capsule) 100 mg PO BEDTIME@20 [facility] Last Admin: 09/17/21 22:52 Dose: Not Given Documented by: Glucagon (Glucagon 1 Mg/Ml Inj 1 Ml) 1 mg IM ONCE PRN; Protocol PRN Reason: Adult Acute Hypoglycemia Prot. Glucagon (Glucagon 1 Mg/Ml Inj 1 Ml) 1 mg IM ONCE PRN; Protocol PRN Reason: Adult Acute Hypoglycemia Prot Dextrose (D5w) 500 mls @ 100 mls/hr IV ONCE PRN; Protocol PRN Reason: Adult Acute Hypoglycemia Prot Ceftriaxone Sodium 1,000 mg/ (Sodium Chloride) 50 mls @ 100 mls/hr IV Q24H [facility]; Protocol Last Infusion: 09/18/21 12:20 Dose: Infused Documented by: Sodium Chloride (Sodium Chloride 0.9%) 1,000 mls @ 75 mls/hr IV .[id number] [facility] Last Admin: 09/18/21 21:43 Dose: 75 mls/hr Documented by: Sodium Bicarbonate 150 meq/ (Dextrose) 1,150 mls @ 100 mls/hr IV .[id number] [facility] Last Admin: 09/19/21 05:56 Dose: 100 mls/hr Documented by: Dextrose (D5w) 500 mls @ 100 mls/hr IV ONCE PRN; Protocol PRN Reason: Adult Acute Hypoglycemia Prot Insulin Human Regular 250 unit (/ Sodium Chloride) 252.5 mls @ 0 mls/hr IV .Q0M [facility]; Protocol Last Admin: 09/19/21 06:08 Dose: 4.35 mls/hr, 4.35 mls/hr Documented by: Norepinephrine Bitartrate 4 mg (/ Dextrose) 254 mls @ 0 mls/hr IV .Q0M [facility]; Protocol Last Titration: 09/19/21 06:45 Dose: 8 mcg/min, 30.48 mls/hr Documented by: Insulin Glargine (Insulin Glargine 100 Units/1 Ml) 12 unit SUBCUT [facility] Last Admin: 09/18/21 05:19 Dose: 12 unit Documented by: Insulin Human Lispro (Insulin Lispro 100 Unit/1 Ml) 0 unit SUBCUT TIDWM [facility]; Protocol Last Admin: 09/18/21 17:41 Dose: 2 unit Documented by: Isosorbide Mononitrate (Isosorbide Mononitrate Er 60 Mg Tablet) 60 mg PO QAM [facility] Last Admin: 09/17/21 05:58 Dose: 60 mg Documented by: Isosorbide Mononitrate (Isosorbide Mononitrate Er 30 Mg Tablet) 30 mg PO QPM [facility] Last Admin: 09/16/21 17:34 Dose: 30 mg Documented by: Morphine Sulfate (Morphine 4 Mg/Ml Sdv 1 Ml) 2 mg IVP Q1H PRN PRN Reason: SEVERE PAIN Last Admin: 09/18/21 03:30 Dose: 2 mg Documented by: Naloxone HCl (Naloxone 0.4 Mg/Ml Sdv) 0.1 mg IVP Q2M PRN PRN Reason: OPIATERV Nifedipine (Nifedipine Er (24 Hr) 30 Mg Tablet) 30 mg PO QAM [facility] Last Admin: 09/17/21 05:58 Dose: 30 mg Documented by: Nitroglycerin (Nitroglycerin 0.4 Mg Sublingual Tablet) 0.4 mg SUBLINGUAL Q5M PRN PRN Reason: Chest Pain Last Admin: 09/14/21 16:38 Dose: 1 tab Documented by: Nystatin (Nystatin Cream 30 Gm) 1 applic TOPICAL BID [facility] Last Admin: 09/18/21 17:33 Dose: Not Given Documented by: Ondansetron HCl (Ondansetron 2 Mg/Ml Sdv 2 Ml) 4 mg IVP Q8H PRN PRN Reason: vomiting, or N/V if npo Last Admin: 09/18/21 19:06 Dose: 4 mg Documented by: Ondansetron HCl (Ondansetron 2 Mg/Ml Sdv 2 Ml) 4 mg IVP Q6H PRN PRN Reason: NAUSEA AND VOMITING Last Admin: 09/17/21 19:55 Dose: 4 mg Documented by: Pantoprazole Sodium (Pantoprazole Dr 40 Mg Tablet) 40 mg PO Q24H [facility] Last Admin: 09/18/21 13:01 Dose: 40 mg Documented by: Ranolazine (Ranolazine (12hr) 500 Mg Tablet) 500 mg PO BID [facility] Last Admin: 09/18/21 17:42 Dose: 500 mg Documented by: Sertraline HCl (Sertraline 50 Mg Tablet) 25 mg PO DAILY [facility] Last Admin: 09/18/21 08:18 Dose: 25 mg Documented by: Vitals/I&O/Wt Last Vital Signs Temp 94.1 F L 09/19/21 06:18 Pulse 85 09/19/21 06:18 Resp 15 09/19/21 06:18 BP 84/42 09/19/21 06:18 Pulse Ox 92 09/19/21 05:45 09/18/21 09/18/21 09/19/21 14:59 22:59 06:59 Intake Total 290 / 290 1110 / 1400 1.27 / 1401.27 Output Total 50 / 50 40 / 90 Balance 290 / 290 1060 / 1350 -38.73 / 1311.27 Weight last 48 hrs Weight 109.372 kg Physical Exam Narrative: hypotensive, in bed, nc 02 vs noted heent- nc/at, eomi, anicteric neck- no jvp lung- crackles b/l heart- S1, s2 occ pvc abd soft, nt, nd, + bs ext- large rt thigh hematoma, 1+ b/l leg edema neuro- not responsive Urinary Catheter Management: José: Cath Placed During This Visit: yes Reason for Continuing Indwelling Catheter: Accurate Measurement of Urinary Output in Critically Ill Patients Urinary Catheter Date of Insertion: 09/15/21 Urinary Catheter Time of Insertion: 16:57 Data : 09/19/21 02:37 09/19/21 02:37 A&P Assessment and plan (1) Chronic kidney disease: 70 yr old female obesity, htn, hyperlipidemia, CAD, diastolic dysfunction PPM- a flutter. ?perfusion scan on September 04 revealed a large moderately severe area of attenuation distribution the right coronary artery and circumflex. She is POD #2 s/p angiogram. Not able yo popen left main. rec med therapy. on 09/17/21 at 7:45 pm- patient had developed a large hematoma after the sheath was pulled.? Patient became somewhat somnolent and dropped her blood pressure.? A rapid response was called.? The patient has been placed in the supine position.? A FemoStop has been placed.?fluids given, prbc tx. Pt in ICU for AMS and hypotensive episodes. Pt is now acidotic, FARRUKH, hyperkalemia. pt is in cardiogenic vs septic shock in ICU 1. CKD stage 3 a- from obesity, dm, htn ua w/ 1+ proteinuria - e coli UTI 2. Recurrent FARRUKH - ATN from hypotension and large bleed and from LARRY - as met acidosis, oliguric, hyperkalemia, AMS, rising cr- will initiate HD 3 hrs, low blood flows, min fluid removal, 2 k bath -check ck -treat k till start hd 3. CAD- abnormal stress test, POD #2 s/p cardiac cath -med management -large hematoma, hypotension noted -Q cardiogenic shock as per cardiology 4. anemia - iron sat 35%, ferritin 510s. neg SPEP in 2019 -from large bleed- prbc, start hd and give ddavp 5. leukocytosis- abx per critical care/ medicine 6. inc AGMA from FARRUKH- can check ur ketomes, and check beta hydroxybuterate- agree w/ insulin -start hd -check lactate 7. DM control 8. hyoperphosphatemia from farrukh -pt is very critical. prognosis is guarded seen and examined w/ RN -telehealth visit time spent >30 min Status: Acute Plan as above Attestations Medical Necessity Statement*: shock, farrukh, met acidosis, ams Time Spent in Patient Care: Greater than 35 minutes (>than 50% of time spent in counselling and/or direct pt care on unit). Coding Level of Care Code Acute Gauger Chief for [facility] Diagnoses Chronic kidney disease N18.9
--- NOTE | 2021-09-19 06:49 | XR_ITS ---
WS: [id number] XR chest 1V portable [id number] REASON FOR EXAM: NG PLACEMENT FINDINGS: Significant amount of overlying artifact. There is been placement of a nasogastric tube. Significant overlying artifact near the tip of the rosalinda ogastric tube. The tip of the tube would appear to be within the body of the stomach. No other interval change. XR/XR chest 1V portable [id number] IMPRESSION: Nasogastric tube placement as above.
--- NOTE | 2021-09-19 06:58 | P.CONIM_ITS ---
Providers/Reason For Consult Consulting Physician/Specialty*: Mark Connolly MD Reason for Consult*: Acute kidney injury Requesting Physician: Dr. Cardona Attending Physician: Barrett Maloney MD Primary Care Provider: Betsy Nuno DO History of Present Illness History of Present Illness Fantasma Montalvo is a 70 year old female with multiple medical complex history. Patient was found to have an acute on top of chronic kidney injury and general surgery was consulted for placement of temporary nontunneled hemodialysis catheter. Patient was seen and evaluated on urgent basis in the ICU bed 3 and patient's brother and his were updated prior to the procedure and appropriate and informed consent was obtained from the brother as he represents patient's legal guardianship Review of Systems General: Reports: ROS unobtainable due to medical condition Medications/Allergies Home Medications Medication Instructions Recorded Confirmed Last Taken Type insulin glargine 100 unit/mL (3 12 unit SUBCUT QAM ml 11/12/19 09/13/21 08/20/21 History mL) subcutaneous pen (Lantus Solostar U-100 Insulin) sennosides 8.6 mg-docusate sodium 1 tab PO DAILY PRN tab 11/12/19 09/13/21 02/27/20 History 50 mg tablet potassium chloride 10 mEq 10 meq PO DAILY@01/05/20 09/13/21 08/21/21 History tablet,extended release insulin aspart U-100 100 unit/mL See Rx Instructions .ROUTE .COMPLEX 05/25/20 09/13/21 12/06/20 History (3 mL) subcutaneous pen (Novolog Flexpen U-100 Insulin aspart) nitroglycerin 0.4 mg sublingual 0.4 mg SUBLINGUAL Q5M PRN 05/25/20 09/13/21 Unknown History tablet (Nitrostat) clopidogrel 75 mg tablet 75 mg PO DAILY@10/31/20 09/13/21 08/21/21 History dexlansoprazole 60 mg 60 mg PO DAILY@10/31/20 09/13/21 08/21/21 History capsule,biphase delayed release (Dexilant) gabapentin 100 mg capsule 100 mg PO BEDTIME@10/31/20 09/13/21 08/20/21 History sertraline 25 mg tablet 25 mg PO DAILY 10/31/20 09/13/21 08/21/21 History glipizide 10 mg tablet 10 mg PO BID 02/08/21 09/13/21 08/21/21 History methenamine hippurate 1 gram tablet 1 g PO BID #60 tab 06/29/21 09/13/21 08/21/21 Rx ascorbic acid (vitamin C) 1,000 mg 1,000 mg PO BID 08/21/21 09/13/21 08/21/21 History tablet (Vitamin C) fentanyl 25 mcg/hr transdermal 25 mcg TRANSDERMAL Q72H 08/21/21 09/13/21 09/13/21 History patch isosorbide mononitrate 30 mg 30 mg PO QPM #60 tab 08/23/21 09/13/21 Unknown Rx tablet,extended release 24 hr apixaban 2.5 mg tablet (Eliquis) 2.5 mg PO BID 09/13/21 09/13/21 Unknown History bumetanide 2 mg tablet 2 mg PO QAM 09/13/21 09/13/21 Unknown History isosorbide mononitrate 60 mg 60 mg PO QAM 09/13/21 09/13/21 Unknown History tablet,extended release 24 hr nifedipine 30 mg tablet,extended 30 mg PO QAM 09/13/21 09/13/21 Unknown History release 24 hr sertraline 50 mg tablet 50 mg PO DAILY 09/13/21 09/13/21 Unknown History Allergies Allergy/AdvReac Type Severity Reaction Status Date / Time citalopram [From Celexa] Allergy Unknown Verified 09/19/21 11:32 duloxetine [From Cymbalta] Allergy Unknown Verified 09/19/21 11:32 prochlorperazine Allergy ALGY-Anaphy Verified 09/19/21 11:32 [From Compazine] laxis shellfish derived Allergy Unknown Verified 09/19/21 11:32 sucralfate [From Carafate] Allergy Unknown Verified 09/19/21 11:32 trazodone Allergy Unknown Verified 09/19/21 11:32 zaleplon [From Sonata] Allergy Unknown Verified 09/19/21 11:32 Current Medications Generic Name Dose Route Start Last Admin Trade Name Freq PRN Reason Stop Dose Admin Ascorbic Acid 1,000 mg 09/13/21 20:46 09/18/21 17:41 Ascorbic Acid 500 Mg Tablet PO 1,000 mg BID PINA Administration Aspirin 81 mg 09/14/21 09:00 09/17/21 10:12 Aspirin 81 Mg Ec Tablet PO 81 mg DAILY PINA Administration Atorvastatin Calcium 40 mg 09/13/21 21:00 09/18/21 21:43 Atorvastatin 40 Mg Tablet PO 40 mg BEDTIME PINA Administration Carvedilol 3.125 mg 09/13/21 20:46 09/17/21 10:12 Carvedilol 3.125 Mg Tablet PO 3.125 mg BID PINA Administration Clopidogrel Bisulfate 75 mg 09/14/21 08:00 09/17/21 07:45 Clopidogrel 75 Mg Tablet PO 75 mg DAILY@08 PINA Administration Enoxaparin Sodium 90 mg 09/14/21 11:15 09/17/21 11:47 Enoxaparin 100 Mg/Ml Syringe 1 mg/kg (90 mg) 90 mg SUBCUT Administration Q12H PINA Fentanyl 1 patch 09/13/21 20:46 09/16/21 21:18 Fentanyl 25 Mcg Patch TRANSDERMA 1 patch Q72H PINA Administration Gabapentin 100 mg 09/13/21 20:46 09/17/21 22:52 Gabapentin 100 Mg Capsule PO Not Given BEDTIME@20 PINA Ceftriaxone Sodium 1,000 mg/ 50 mls @ 100 mls/hr 09/16/21 09:30 09/18/21 12:20 Sodium Chloride IV Infused Q24H PINA Infusion Protocol Sodium Chloride 1,000 mls @ 75 mls/hr 09/16/21 17:00 09/18/21 21:43 Sodium Chloride 0.9% IV 75 mls/hr .[id number] PINA Administration Sodium Bicarbonate 150 meq/ 1,150 mls @ 100 mls/hr 09/19/21 05:30 09/19/21 05:56 Dextrose IV 100 mls/hr .[id number] PINA Administration Insulin Human Regular 250 unit 252.5 mls @ 0 mls/hr 09/19/21 05:30 09/19/21 06:08 / Sodium Chloride IV 4.35 mls/hr .Q0M PINA 4.35 mls/hr Administration Protocol Per Protocol Norepinephrine Bitartrate 4 mg 254 mls @ 0 mls/hr 09/19/21 06:15 09/19/21 06:45 / Dextrose IV 8 mcg/min .Q0M PINA 30.48 mls/hr Titration Protocol Per Protocol Insulin Glargine 12 unit 09/14/21 06:00 09/19/21 06:47 Insulin Glargine 100 Units/1 Ml SUBCUT Not Given QAM [facility] Insulin Human Lispro 0 unit 09/13/21 20:46 09/18/21 17:41 Insulin Lispro 100 Unit/1 Ml SUBCUT 2 unit TIDWM [facility] Administration Protocol Isosorbide Mononitrate 60 mg 09/14/21 06:00 09/17/21 05:58 Isosorbide Mononitrate Er 60 Mg Tablet PO 60 mg QAM [facility] Administration Isosorbide Mononitrate 30 mg 09/13/21 20:46 09/16/21 17:34 Isosorbide Mononitrate Er 30 Mg Tablet PO 30 mg QPM [facility] Administration Morphine Sulfate 2 mg 09/17/21 21:23 09/18/21 03:30 Morphine 4 Mg/Ml Sdv 1 Ml IVP 2 mg Q1H PRN Administration SEVERE PAIN Nifedipine 30 mg 09/14/21 06:00 09/17/21 05:58 Nifedipine Er (24 Hr) 30 Mg Tablet PO 30 mg QAM [facility] Administration Nitroglycerin 0.4 mg 09/13/21 20:46 09/14/21 16:38 Nitroglycerin 0.4 Mg Sublingual Tablet SUBLINGUAL 1 tab Q5M PRN Administration Chest Pain Nystatin 1 applic 09/14/21 09:00 09/18/21 17:33 Nystatin Cream 30 Gm TOPICAL Not Given BID [facility] Ondansetron HCl 4 mg 09/13/21 13:25 09/18/21 19:06 Ondansetron 2 Mg/Ml Sdv 2 Ml IVP 4 mg Q8H PRN Administration vomiting, or N/V if npo Ondansetron HCl 4 mg 09/13/21 20:46 09/17/21 19:55 Ondansetron 2 Mg/Ml Sdv 2 Ml IVP 4 mg Q6H PRN Administration NAUSEA AND VOMITING Pantoprazole Sodium 40 mg 09/17/21 14:00 09/18/21 13:[address] 40 Mg Tablet PO 40 mg Q24H [facility] Administration Ranolazine 500 mg 09/17/21 18:00 09/18/21 17:42 Ranolazine (12hr) 500 Mg Tablet PO 500 mg BID [facility] Administration Sertraline HCl 25 mg 09/14/21 09:00 09/18/21 08:18 Sertraline 50 Mg Tablet PO 25 mg DAILY PINA Administration PFSH Acute PFSH: Medical History Anticoagulation adequate with anticoagulant therapy Aortic stenosis Atrial fibrillation by electrocardiogram CAD (coronary artery disease) CHF (congestive heart failure) Chronic kidney insufficiency Dental caries Diabetes DJD (degenerative joint disease) Gastroenteritis GERD (gastroesophageal reflux disease) Hematoma following procedure HTN (hypertension) Hypercholesterolemia Hyperlipidemia Morbid obesity Recurrent UTI Long history of recurrent UTIs suspicious for CHRONIC CYSTITIS. ESBL E. coli documented in 2019. Renal stone Rhabdomyolysis Sinus pause Urinary incontinence Surgical History H/O colonoscopy yrs ago History of cardiac catheterization History of hernia repair History of hip surgery History of hysterectomy History of knee surgery History of sinus surgery History of tonsillectomy History of umbilical hernia repair Pacemaker Status post placement of cardiac pacemaker Family History Father , in his 60's Lung disease Mother , 99 Hypertension Other Diabetes Stroke Denies family history of CAD (coronary artery disease) Clotting disorder Dementia Chronic kidney disease (CKD) Anesthesia complication Bleeding disorder Social History Quit status (tobacco): has quit using tobacco Former quit date comment: Smoking in her 20s Alcohol intake: never Caregiver/support person: Yes (Home health services Friday) Lives independently: Yes Housing: House Marital status: Current occupational status: retired History of recent travel: No Current gender identity: Female Vitals/I&O/Wt Last Vital Signs Temp 94.1 F L 09/19/21 06:18 Pulse 81 09/19/21 06:50 Resp 19 H 09/19/21 06:50 BP 113/38 09/19/21 06:50 Pulse Ox 99 09/19/21 06:50 09/18/21 09/18/21 09/19/21 14:59 22:59 06:59 Intake Total 290 / 290 1110 / 1400 7.62 / 1407.62 Output Total 50 / 50 40 / 90 Balance 290 / 290 1060 / 1350 -32.38 / 1317.62 Weight last 48 hrs Weight 231 lb Weight 241 lb 2 oz Physical Exam 2 Narrative: Patient is sedated in critical condition requiring pressors BMI 48 Head and neck examination PERRLA no masses no cervical lymphadenopathy no jaundice Cardiac examination audible S1-S2 no murmurs no gallops no arrhythmias Chest is clear bilateral,abscence of Rhonchi or wheezes,no surgical emphysema Abdomen nontender nondistended soft no organomegaly guarding or rigidity/no signs of peritonitis Large right groin hematoma Morbidly obese Urinary Catheter Management: José: Cath Placed During This Visit: yes Reason for Continuing Indwelling Catheter: Accurate Measurement of Urinary Output in Critically Ill Patients Urinary Catheter Date of Insertion: 09/15/21 Urinary Catheter Time of Insertion: 16:57 Data : 09/19/21 02:37 09/19/21 02:37 A&P Assessment and plan (1) Acute kidney injury: Plan of care; After limited history physical examination and reviewing the chart and reviweing the images with my personal intrepretation.I counseled the patient's legal guardian for non- tunneled hemodialysis catheter placement, indications, risks including possibility of , stroke, heart attack, major bleeding, infection, pneumonia, organ failure, failure to benefit, prolonged hospital stay, pain after the procedure pneumothorax that may require Chest tube(s) placement and potential injury of major vascular structures that may require Thoractomy, benefits,indications and alternatives were all discussed with the patient's le gal guardian, patient's brother understands and is interested to proceed. Rationale was carefully and clearly discussed with the patient's legal guardian Justino informed consent have been reviewed and signed. Status: Acute Coding Level of Care Code Acute [employer] for [facility] Fwd Diagnoses Acute kidney injury N17.9
--- NOTE | 2021-09-19 08:32 | PC.NURSE ---
Around 0345 pt had episode of vomiting and this RN along with another cleaned pt and changed linen and gown. pt was lethargic, but awake, and following commands. Around 0400 this RN made MD Norberto aware of pt hemoglobin level and decrease in BP. 1 Unit PRBC ordered at this time. Around 0440 this RN entered room to round, assess vital signs and prepare for blood transfusion. Pt was found to be extremely lethargic, would not open eyes to painful stimulus, eyes opened to assess pupils, pt eyes were fixed to the right (no tracking, no blink to visual threat), pt appeared to be having agonal breathing, and no gag reflex. Additional nursing help was called to room, RT at bed, Call was placed to MD Norberto to come to bedside. pt appeared to stop breathing so OPA was inserted by RT and manual bagging was initiated. House sup called to bedside. When MD arrived at bedside pt had started breathing independently. nonbreather was applied at 15L. head CT, chest xray, troponin, ABG, lactic, ammonia, and 1L bolus Normal saline ordered for hypotension. Pt taken to CT, OPA was removed. multiple attempts to obtain labs all unsuccessful. called with ABG results and bicarb gtts order was placed. MD Conor was called and updated on pt condition. MD at bedside order for NG tube insertion. Around 0600 Bicarb and insulin gtts was initiated. Blood transfusion was initiated, 0615 NG was inserted and xray was done to confirm placement. Report given to oncoming nurse Mercedes RN at beside
--- NOTE | 2021-09-19 09:09 | XR_ITS ---
WS: [id number] XR chest 1V portable [id number] REASON FOR EXAM: dialysis line placement FINDINGS: Right internal jugular dialysis catheter has been placed. The tip is at the cavoatrial junction in pr oper position for use. There is no right pneumothorax. No abnormal soft tissue density in the base of the right neck. Chest is otherwise unchanged compared to earlier this same day. XR/XR chest 1V portable [id number] IMPRESSION: Right internal jugular dialysis catheter placement as above.
--- NOTE | 2021-09-19 09:54 | PM.MISC ---
Miscellaneous Note Purpose of Documentation: Patient was seen this morning, -Overnight events, patient became hypotensive, requiring Levophed, currently she is in shock, likely related from her bleeding, from sepsis, from acute renal failure -Currently in acute renal failure, creatinine 2.9, uremia, 90 cc of urine output -Patient is also quite acidotic, pH 7.17, likely lactic acidosis, some component of diabetic ketoacidosis, acute renal failure, and sepsis -With acute encephalopathy, lehargic, not alert to person place or time, does not follow commands -Currently on 5, is holding her airway airway, encephalopathic, not following any commands, and acute respiratory failure, likely fluid overload, aspiration pneumonia -Her leukocytosis increased to 21,000, likely component of aspiration, and from her hematoma -This morning her right thigh hematoma has significantly enlarged, hemoglobin is down to 7.4, she received a unit of blood, -Potassium 6.0 -Coarse lungs and bilateral lung rodrigez, she is tachycardic, hypotensive, hypothermic -Her hypothermia is with her elevated INR is wearing me that she is developing DIC given her elevated INR -Currently patient is critically ill -There was an attempt on a left femoral dialysis catheter placement, now she is having a right IJ dialysis catheter placement with Dr. Connolly -Currently patient is critically ill, prognosis is poor -In my opinion doing dialysis on her, with her hypotension, does carry significant morbidity mortality -She needs to be vented, intubated, to protect her airway, placed on multiple pressors, she needs to have urgent dialysis as her GCS is 3 -She has high risk of morbidity and mortality -I spoke to patient's family, Fracisco and Justino who are patient's next of kin and healthcare power of privacy attorney's -They tell me that patient has had slowly worsening dementia over the last year -They often have to repeat things back to her, her dementia has been worsening -They tell me that she often forgets to take her medications at home, -They tell me that there is nobody to take care of her, she used to live with them, but she refused to live with them anymore now she is living on their own, she does not know how she makes it on her own -She barely ambulates, sometimes with her wheeled walker but most times she is bedbound -She slowly declined over the last year, her mentation has declined, her physical strength declined, she has had multiple hospitalizations -They tell me that with their conversations that they have had, she has expressed that she does not want to have aggressive interventions, she does not intubated she does not want of CPR she does not have dialysis -Actually they inform me that in the past they had a dialysis evaluation nurse come out and evaluate her, and she refused dialysis at 1 point -They tell me that she is chronically in pain, her dementia is worsening, and she is quite sick at baseline -They tell me that it would be against her wish to get dialysis, to have CPR, to be put on a ventilator, to have aggressive interventions -After reviewing patient's healthcare power directives Fracisco and Justino are patient's next of kin and next decision-maker -Upon reviewing patient's healthcare power directive she solely states in there that she does not want to have CPR, she does not want to have intubation, she does not want to have dialysis -The only difficulty is is that on admission, she told me that she did want to have CPR she did want to be intubated but she did not want to have more aggressive interventions and if the likelihood of her having a recovery is fairly unlikely she does not want to have any aggressive interventions -After discussing with family they do not want to have CPR, they do not want her to receive dialysis they do not want aggressive interventions they just want her to be comfortable -It was also is patient's wish to never go to a halfway, patient's family's feels that if she is all on these life-sustaining measures, given her poor baseline level of functioning she would eventually have to go to a halfway and that would be against her wishes, and would be a poor quality of life as she used to be an [employer]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[employer]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 -After looking at patient clinically multiple times throughout the morning, she has worsening sepsis, worsening shock, worsening renal function, worsening hypotension, she cannot protect her airway -Currently she is not alert to person, to place, not to time, she does not respond to sternal rub, she is pale, flushed, right thigh hematoma is enlarged, she is on 5 L, crackles in all lung rodrigez, DP PT pulses are nonpalpable, bilateral extremities are mottled, she does not withdraw from pain, she has a sluggish pupillary reflex, she is on Levophed, insulin drip, -Without doing aggressive interventions such as intubation, multiple pressors, dialysis, patient will have no chance of an outcome -However doing these aggressive interventions given her age and risk factors her baseline functioning to me seem aggressive and against her wishes -I feel that putting her on a ventilator, placing her on multiple pressors, carrying out dialysis carry significant morbidity and mortality, given how she clinically is, she is clinically critically ill, and given her baseline poor level of functioning, and her wishes expressed under healthcare directive, and wishes expressed by her family members who her her healthcare power of privacy attorney I feel that caring about all these interventions would be futile -Thus plan is to make her comfort care -Discussed with family comfort care, discussed risk and benefits they voiced any, all questions answered agreed to proceed -I also spoke to nephrology, they also concurred that given her critical status, carrying out dialysis and doing aggressive interventions would carry significant morbidity and mortality, poor outcome -I have also spoke to cardiology, they will come by and speak to patient's family
[2021-09-19 10:22] LABS: Glucose Point of Care 183 mg/dL (70-110)
[2021-09-19 10:22] LABS: Glucose Point of Care 221 mg/dL (70-110)
[2021-09-19 10:22] LABS: Glucose Point of Care 205 mg/dL (70-110)
[2021-09-19 10:22] LABS: Glucose Point of Care 212 mg/dL (70-110)
[2021-09-19 10:22] LABS: Glucose Point of Care 172 mg/dL (70-110)
--- NOTE | 2021-09-19 11:03 | PC.NURSE ---
0715: Pt obtunded with hypotension. Insulin and Levophed, and bicarb infusing. Orders from content strategist for CRRT. Surgery consult notified for dialysis line placement. 0800: Dr Connolly here, phone consent obtained from Justino Wise, her brother. 0900: Dialysis cath placement in progress. Levophed increased due to increasing hypotension, according to protocol 0910: Chest xray to confirm placement of dialysis catheter. 0915: Family here. Dr Haider mendoza to family. Family produced medial directives. 0940: Pt to be comfort care. Insulin gtt stopped. Bathing provided. Room cleared. 0955: Family at bedside. Levophed and Bicarb gtt stopped. NG left in for pt's comfort. O2 now at 2lpm/NC. Resp even and unlabored. O2 sats 60's, probe removed for comfort care.
--- NOTE | 2021-09-19 11:34 | P.PCN_ITS ---
Procedure/Consent Time out: Time Out Performed: Yes Consent: Consent for Procedure: Consent obtained from other (indicate) (Patient's legal guardian her brother Justino), Risks & Benefits reviewed and Agrees to proceed with procedure Procedure Narrative: Pre Procedure diagnosis; acute renal failure Postprocedure diagnoses the same Procedure done; placement of right IJ vein 12 Belgian temporary dialysis catheter 16 cm Indication acute renal failure Medications were reviewed to assess for anticoagulant usage. Risks and benefits and prevention of central line associated blood stream infection (CLABSI) were discussed with the patient/CPOA, and a consent was obtained. Monitors were in place and monitored throughout the procedure. All necessary supplies were available prior to start. Hand hygiene was completed prior to starting. Maximum barrier technique was utilized including a sterile gown, sterile gloves with a hat and mask. Site was was prepped with [chlorhexidine] and a full body drape was placed. 5 mL of 2% lidocaine was injected into the skin with a 25 gauge needle. Description Prep& drape was done under the usual sterile technique of the left groin area.Local anesthetic in the form of 1% lidocaine infiltrated at the site of insertion of the catheter left groin area.Left fomoral vein was accessed yet arterial blood was retrived inspite of U/S guidance yet the patient was very swollen,finally I was able to access the left femoral vein but wire had resistance to pass and inspite of getting a new wire,and still I decided to abort and hold pressure for few minutes and deviated my attention towards the right IJ vein. Patient continued to be on pressors as she was before the procedure. Prep and drape of the upper chest and right neck , lidocaine 1% was injected at the site of the stick, started by right IJ vein stick that retrieved venous blood was obtained from the first stick under U/S guidance, a guidewire was then threaded and there was no PVC changes, at that point the guidewire was secured to the drapes with a hemostat and the needle was taken out, followed by that serial dilators ,the dilator was then taken out, glide wire maintained to be in good position and the hemodialysis catheter 12 Belgian was introduced onto the guidewire, with venous and arterial hubs were flushed and retrieved venous blood without difficulty Hep-Lock's were then applied Postprocedure chest x-ray was done, showed catheter in good position and no pneumothorax Patient tolerated the procedure well I Was present for the whole entire procedure TYPE OF PLACEMENT: Temporary dialysis catheter in the right internal jugular vein TUNNELED:(NO) IMAGING UTILIZED:~ [Ultrasound guided approach/and interpretation of images done by me through the procedure] ANESTHESIA: (Local lidocaine 1%) Sound System Installer Kaeliy Acute Procedures Epistaxis Control: Time out performed: Yes
--- NOTE | 2021-09-19 11:51 | PC.SOCIAL ---
IMM not updated IMM not updated as patient is on comfort care.
--- NOTE | 2021-09-19 12:05 | PC.NURSE ---
Bedside report completed with Carlton Colindres
--- NOTE | 2021-09-19 12:06 | PC.CHAP ---
Pastoral Care Encounter/Spiritual Assessment Type of Contact [] Declined patient registration rep visit [] Patient/Family/Request visit [] Outpatient visit [] Follow-up visit [] Physician referral [] Code/Alert [x] Routine visit [] Staff referral [] Actively dying [] Patient sleeping [] Family support [] [] Out of room [] Palliative care [] [x] Receiving care in room [] Pre-surgical visit [] Trauma [] Long length of stay [x] ICU visit [x] Other: busy with procedure Relational/Emotional Strength [] Patient feels connected with others/family/visitors/staff [] Distress [] Loneliness/isolation [] Abandonment Spirituality of Patient [] Person of Shira [] Attends Religion of their Shira [] Believes in Prayer [] Reads Bible or Adventist materials [] There are Spiritual issues to be addressed Special Projects Manager Interventions [x] Prayer [] Active listening [] Non-anxious presence [] Spiritual/emotional support [] Crisis/trauma care [] Spiritual counseling [] Bereavement support [] Provided bereavement packet [] Provided Bible/devotional materials [] Provided toy/stuffed animal, coloring book to patient or family member [] Provided Communion [] Anointing/[place] [] Salvation [x] Completed spiritual assessment [] Other: Impact on Illness or Injury [] Angry [] Fearful [] Anxious [] Often cries [] Exhaustion [] Unable to work [] Unable to attend confucianist [] Unable to walk/stand [] Unable to read [] Unable to drive [] Unable to eat/drink [] Unable to sleep [] Unable to be with family [] Patient intubated [] Other: Summary Time spent with patient
[2021-09-19 12:22] LABS: Glucose Point of Care 200 mg/dL (70-110)
--- NOTE | 2021-09-19 12:28 | P.PN_ITS ---
Subjective Subjective: Patient became acidotic, hypotensive and hyperkalemic with minimal UO. HD catheter was placed. Medications: Reviewed: Yes Vitals/I&O/Wt Last Vital Signs Temp 95 F L 09/19/21 09:00 Pulse 84 09/19/21 10:30 Resp 17 09/19/21 10:30 BP 78/57 09/19/21 10:00 Pulse Ox 57 L 09/19/21 10:30 09/18/21 09/19/21 09/19/21 22:59 06:59 14:59 Intake Total 1110 / 1400 7.62 / 1407.62 491.773 / 491.773 Output Total 50 / 50 40 / 90 Balance 1060 / 1350 -32.38 / 1317.62 491.773 / 491.773 Weight last 48 hrs Weight 231 lb Weight 241 lb 2 oz Physical Exam Narrative: GENERAL: obtunded, pale NECK: R IJ dialysis catheter in place LUNGS: Clear anteriorly. no wheezes or rales. HEART: Regular rate and rhythm. EXTREMITIES: Large right groin hematoma+ NEUROLOGIC: obtunded Urinary Catheter Management: José: Cath Placed During This Visit: yes Reason for Continuing Indwelling Catheter: Accurate Measurement of Urinary Output in Critically Ill Patients Urinary Catheter Date of Insertion: 09/15/21 Urinary Catheter Time of Insertion: 16:57 Data : 09/19/21 02:37 09/19/21 02:37 A&P Assessment and plan (1) Chest pain: ?Last stress test with Large sized perfusion abnormality of moderate severity of entire inferior, ?basal to mid inferolateral and apical lateral watters with moderate reversibility in mid to apical inferolateral and apical inferior watters. -continues to be symptomatic inspite of medical management. -I discussed with her option of adding Ranexa and f/u in 1 week with me to reassess her symptoms vs LHC with high risk of renal failure. -She opted for LHC and was willing to take her risk. -She had a big hematoma after left heart catheterization. Medical management opted for after difficult cardiac catheterization. -She developed renal failure and plan was to proceed with hemodialysis today. -Patient's brother and audpis-op-gke stated that they had discussed with the patient her advance directives recently and she did not want any dialysis. -I had a long discussion with patient's family and they would like to [facility] at this time. I will sign off. Status: Acute (2) Atherosclerotic heart disease of [place] coronary artery with other forms of angina pectoris: Status: Acute (3) Status post placement of cardiac pacemaker: Status: Acute (4) HTN (hypertension): Status: Acute (5) Hyperlipidemia: Status: Acute Plan Abnormal stress test CKD stage 3a H/O LARRY IDDM Anemia Attestations Medical Necessity Statement*: Patient was made comfort care Coding Level of Care Code Acute Contract Serviceman for [facility] Diagnoses Chest pain R07.9 Atherosclerotic heart disease of [place] coronary artery with other forms of angina pectoris I25.118 Status post placement of cardiac pacemaker Z95.0 HTN (hypertension) I10 Hyperlipidemia E78.5
--- NOTE | 2021-09-19 12:41 | PM.PN ---
Subjective Subjective: This morning, patient is nonresponsive, does not respond to sternal rub, does not withdraw from pain, pupillary reflexes sluggish bilaterally, does have a cough reflex, does not follow commands, breathing is labored, has tachypnea, crackles in all lung rodrigez, she is mottled bilateral lower extremity DP PT pulses not palpable, she is hypotensive, on Levophed, on 5 L, her right leg, hematoma site is enlarged, she had a right IJ dialysis catheter placement by Dr. Clifford -Currently she has acute hypoxic respiratory failure secondary to fluid overload, systolic and diastolic CHF, requiring intubation, dialysis -She has acute renal failure, requiring urgent dialysis -She has metabolic acidosis, lactic acidosis in the area -acute renal failure, urine output 90 cc, fluid overloaded with anasarca, bilateral extremity edema, crackles on exam -Hypoalbuminemia from renal failure leukocytosis from -Aspiration pneumonia, possible infected right groin hematoma -Concerns for DIC given elevated INR, -Shock, multifactorial from acute renal failure, hemorrhage, acute blood loss anemia, sepsis -Also concern for sepsis, from aspiration pneumonia, possible infected hematoma right thigh -Acute encephalopathy due to above -Has evidence of elevated LFTs, transaminitis, evidence of shock liver -Concern for DKA and elevated anion gap, on insulin drip -After discussion with family, reviewing patient's goals of care, reviewing her health care directives, discussing the case with nephrology, cardiology, pursuing aggressive interventions would carry likelihood of poor outcome, and morbidity and mortality associated -Proceeding with comfort care as per patient's wishes in her healthcare directive family's wishes, and any further medical intervention would be futile Vitals/I&O/Wt Last Vital Signs Temp 95 F L 09/19/21 09:00 Pulse 84 09/19/21 10:30 Resp 17 09/19/21 10:30 BP 78/57 09/19/21 10:00 Pulse Ox 57 L 09/19/21 10:30 09/18/21 09/19/21 09/19/21 22:59 06:59 14:59 Intake Total 1110 / 1400 7.62 / 1407.62 491.773 / 491.773 Output Total 50 / 50 40 / 90 Balance 1060 / 1350 -32.38 / 1317.62 491.773 / 491.773 Weight last 48 hrs Weight 104.78 kg Weight 109.372 kg Physical Exam Const: EXAM LIMITATIONS: altered mental status GENERAL APPEARANCE: lethargic, ill appearing, frail appearing, diaphoretic and Edematous ORIENTATION/CONSCIOUSNESS: Yes patient obtunded and Yes lethargic; not awake, not oriented to person and not oriented to place Eye: OTHER: Sluggishly reactive bilateral pupils Resp: OTHER: Breathing is labored, evidence of tachypnea, bilateral crackles on exam Cardio: OTHER: S1, S2, tachycardic, abnormal rhythm, regularly irregular GI: OTHER: Soft, hypoactive bowel sounds Neuro: SENSORIUM/ORIENTATION: No oriented to person, No oriented to place and Yes lethargic Urinary Catheter Management: José: Cath Placed During This Visit: yes Reason for Continuing Indwelling Catheter: Accurate Measurement of Urinary Output in Critically Ill Patients Urinary Catheter Date of Insertion: 09/15/21 Urinary Catheter Time of Insertion: 16:57 Data : 09/19/21 02:37 09/19/21 02:37 A&P Assessment and plan (1) Acute renal failure: Status: Acute (2) Acute encephalopathy: Status: Acute (3) Shock: Status: Acute (4) Sepsis with acute hypoxic respiratory failure: Status: Acute (5) Aspiration pneumonia: Status: Acute (6) Hematoma of right thigh: Status: Acute (7) Acute encephalopathy: Status: Acute (8) Acute anemia: Status: Acute Plan Proceeding with comfort care Attestations Medical Necessity Statement*: Patient requires hospitalization for comfort care Coding Level of Care Code Acute Market Research Manager for [facility] Diagnoses Acute renal failure N17.9 Acute encephalopathy G93.40 Shock R57.9 Sepsis with acute hypoxic respiratory failure A41.9; R65.20; J96.01 Aspiration pneumonia J69.0 Hematoma of right thigh S70.11XA Acute encephalopathy G93.40 Acute anemia D64.9
[2021-09-19] MEDS: glycopyrrolate 0.2 mg/mL SDV 2 mL IV (12:58)
--- NOTE | 2021-09-19 13:08 | PC.OT ---
SKILLED OT SERVICES DISCONTINUED PATIENT HAS BEEN PLACED ON COMFORT CARE.
--- NOTE | 2021-09-19 14:00 | PC.NURSE ---
DUring rounds, Nurse observed the patient to not be breathing, patien't skin is pale and mucous membranes cyanotic. Nurse auscultated for 1 minute and was unable to hear an apical heart beat. Gayle Mercedes RN also listened and verified no heart beat. Time of called at 1350 on 09/19/2021. NUrse alerted Dr nunez. Nurse alerted housekeeping staff who said she would contact [facility]. Nurse advised family who was present that the patient has . Nurse explained the next steps from here and that they are welcome to stay with her if they would like. Family said they will leave to go speak to other family members at home and will call back with a home preference.
--- NOTE | 2021-10-02 11:06 | P.DES_ITS ---
Discharge Providers DDS Date of Admission: 09/14/21 19:09 Date Summary Completed: 10/02/21 Attending Provider at Admission: Barrett Maloney MD Attending Provider at Discharge: Barrett Maloney MD Primary Care Provider: DO MINDA Subramanian Diagnoses Hospital Diagnoses (1) Chest pain: (2) Atherosclerotic heart disease of [place] coronary artery with other forms of angina pectoris: (3) Status post placement of cardiac pacemaker: (4) HTN (hypertension): (5) Hyperlipidemia: Reason for Visit Reason for Visit FALL BACK PAIN, CHEST PAIN Summary Summary Summary: Fantasma Montalvo is a 70 year old female with established history of insulin- dependent type 2 diabetes mellitus, coronary disease EF 60% diastolic CHF, mild aortic valve stenosis, mild pulmonary hypertension, atrial fibrillation on Eliquis who presents [facility] due to complaints of chest pain patient.? Patient recently presents [facility] for chest pain, she had a cardiac stress test which showed mild to moderate sathya-infarct ischemia in RCA/circumflex territory versus additionally artifact, normal LV function with no regional wall motion abnormalities.? Given her CKD, risk of contrast-induced nephropathy, patient elected medical management.? Her Imdur dose was increased, recent pacemaker interrogation was unremarkable.? Patient returns to [facility] due to chest pain, started at 7 AM, left-sided, did not radiate to her shoulder this time, no shortness of breath, pressure squeezing-like pain.? She also complained of right upper quadrant pain.? Patient was admitted to [facility] for chest pain, NSTEMI, managed conservatively initially, with plans on coronary angiogram delayed by elevated creatinine. Once creatinine was 1.5, patient underwent coronary angiography with no obstructive CAD. Patient developed a large hematoma at left heart catheterization site, FemoStop placed, hemoglobin dropped to 9.5, no blood required, managed initially conservatively. Due to large hematoma left groin, she was moved to the ICU. The morning of 09/19/2021, patient is nonresponsive, does not respond to sternal rub, does not withdraw from pain, pupillary reflexes sluggish bilaterally, does have a cough reflex, does not follow commands, breathing is labored, has tachypnea, crackles in all lung rodrigez, she is mottled bilateral lower extremity DP PT pulses not palpable, she is hypotensive, on Levophed, on 5 L, her right leg, hematoma site is enlarged, she had a right IJ dialysis catheter placement by Dr. Clifford -Currently she has acute hypoxic respiratory failure secondary to fluid overload, systolic and diastolic CHF, requiring intubation, dialysis -She has acute renal failure, requiring urgent dialysis -She has metabolic acidosis, lactic acidosis in the area -acute renal failure, urine output 90 cc, fluid overloaded with anasarca, bilateral extremity edema, crackles on exam -Hypoalbuminemia from renal failure leukocytosis from -Aspiration pneumonia, possible infected right groin hematoma -Concerns for DIC given elevated INR, -Shock, multifactorial from acute renal failure, hemorrhage, acute blood loss anemia, sepsis -Also concern for sepsis, from aspiration pneumonia, possible infected hematoma right thigh -Acute encephalopathy due to above -Has evidence of elevated LFTs, transaminitis, evidence of shock liver -Concern for DKA and elevated anion gap, on insulin drip -After discussion with family, reviewing patient's goals of care, reviewing her health care directives, discussing the case with nephrology, cardiology, pursuing aggressive interventions would carry likelihood of poor outcome, and morbidity and mortality associated -Proceeding with comfort care as per patient's wishes in her healthcare directive family's wishes, and any further medical intervention would be futile -patient was made comfort care -Time of 1350 09/19/2021 Additional Data Advance directives?: No Discharge Plan Discharge Patient Disposition: At Medical Facility Condition: Stable Prescriptions: No Action Lantus Solostar U-100 Insulin 100 unit/mL (3 mL) insulin pen 12 unit SUBCUT QAM 0RF sennosides-docusate sodium 8.6-50 mg tablet 1 tab PO DAILY PRN (Reason: Constipation) 0RF methenamine hippurate 1 gram tablet 1 g PO BID Qty: 60 12RF Rx Instructions: Take 1000 mg of vitamin C with each dose of methenamine insulin aspart U-100 [Novolog Flexpen U-100 Insulin] 100 unit/mL (3 mL) Insul in Pen See Rx Instructions .ROUTE .COMPLEX 0RF Rx Instructions: PER SLIDING SCALE (max 60 units per day) nitroglycerin [Nitrostat] 0.4 mg Tablet, Sublingual 0.4 mg SUBLINGUAL Q5M PRN (Reason: Chest Pain) 0RF Dexilant 60 mg capsule,biphase delayed releas 60 mg PO DAILY@08 0RF Label Comments: Not sure if patient is taking sertraline 25 mg tablet 25 mg PO DAILY 0RF clopidogrel 75 mg tablet 75 mg PO DAILY@08 0RF gabapentin 100 mg capsule 100 mg PO BEDTIME@20 0RF glipizide 10 mg tablet 10 mg PO BID 0RF potassium chloride 10 mEq tablet extended release 10 meq PO DAILY@08 0RF ascorbic acid (vitamin C) [Vitamin C] 1,000 mg Tablet 1,000 mg PO BID 0RF fentanyl 25 mcg/hr patch 72 hour 25 mcg transdermal Q72H 0RF isosorbide mononitrate 30 mg tablet extended release 24 hr 30 mg PO QPM Qty: 60 0RF bumetanide 2 mg tablet 2 mg PO QAM 0RF Eliquis 2.5 mg tablet 2.5 mg PO BID 0RF isosorbide mononitrate 60 mg tablet extended release 24 hr 60 mg PO QAM 0RF nifedipine 30 mg tablet extended release 24 hr 30 mg PO QAM 0RF sertraline 50 mg tablet 50 mg PO DAILY 0RF Referrals: Betsy Nuno DO [Primary Care Provider] - Patient Instructions: Opioid Safety Probable Cause of Probable cause of : Cardiac arrest DS Attestations Time Spent in /Discharge Care*: less than 30 min Quality - AMI: AMI present?: No Quality - Stroke: CVA present?: No Quality - VTE: VTE present?: No Coding Level of Care Code 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
== END 2021-09-19 13:50 | disposition expired ==
LOC: ER 15:20 → CSU 18:00 → ICU 09-17 20:13
PROVIDERS: Internal Medicine; Internal Medicine Cardiovascular Disease; Internal Medicine Nephrology; Admitting Provider Family Medicine; Emergency Provider Family Medicine; PCP Family Medicine; Visit Provider Family Medicine
PROC: B211YZZ Fluoroscopy of Multiple Coronary Arteries using Other Contrast (ICD-10-PCS; principal; 2021-09-17 16:30)
DX: I21.4 Non-ST elevation (NSTEMI) myocardial infarction (principal); J96.01 Acute respiratory failure with hypoxia; J69.0 Pneumonitis due to inhalation of food and vomit; D65 Disseminated intravascular coagulation [defibrination syndrome]; G93.41 Metabolic encephalopathy; A41.9 Sepsis, unspecified organism; R65.21 Severe sepsis with septic shock; N17.0 Acute kidney failure with tubular necrosis; I13.0 Hypertensive heart and chronic kidney disease with heart failure and stage 1 through stage 4 chronic kidney disease, or unspecified chronic kidney disease; I50.40 Unspecified combined systolic (congestive) and diastolic (congestive) heart failure; I48.20 Chronic atrial fibrillation, unspecified; Z68.42 Body mass index [BMI] 45.0-49.9, adult; I48.92 Unspecified atrial flutter; L76.32 Postprocedural hematoma of skin and subcutaneous tissue following other procedure; D62 Acute posthemorrhagic anemia; I25.118 Atherosclerotic heart disease of native coronary artery with other forms of angina pectoris; N18.9 Chronic kidney disease, unspecified; E11.22 Type 2 diabetes mellitus with diabetic chronic kidney disease; I35.0 Nonrheumatic aortic (valve) stenosis; I27.20 Pulmonary hypertension, unspecified; E66.01 Morbid (severe) obesity due to excess calories; Z95.0 Presence of cardiac pacemaker; G89.29 Other chronic pain; E78.5 Hyperlipidemia, unspecified; E03.9 Hypothyroidism, unspecified; J44.9 Chronic obstructive pulmonary disease, unspecified; Z87.891 Personal history of nicotine dependence; I46.9 Cardiac arrest, cause unspecified; E87.5 Hyperkalemia; Z66 Do not resuscitate; F03.90 Unspecified dementia, unspecified severity, without behavioral disturbance, psychotic disturbance, mood disturbance, and anxiety; I95.9 Hypotension, unspecified; R57.8 Other shock
CPT/HCPCS: 36415; 36416; 36430; 51702; 70450; 71045; 73700; 74176; 76705; 80051; 80053; 81001; 82306; 82310; 82330; 82728; 82805; 82962; 82977; 83540; 83550; 83690; 83735; 83970; 84100; 84145; 84443; 84484; 84550; 85014; 85018; 85025; 85610; 85730; 86140; 86850; 86900; 86920; 87077; 87086; 87186; 93005; 93454; 94640; 94664; 96372; 96374; 97167; 99285; C1769; C1887; C1894; C9113; G0378; J0696; J1644; J1650; J1815 ×2; J2250; J2270; J2405; J3010; J3475; J3490; J7030; J7050; J7611; P9016; Q0163; Q3014; Q9967